=== PATIENT | female | born 1970 | race Caucasian/White ===

== ENCOUNTER 2020-10-18 17:49 | Outpatient (REF) | payer MEDICARE, MEDICAID, SELFPAY | END 2020-10-18 17:50 | disposition home or self-care (01) | LOC: HO.LAB 17:49 | PROVIDERS: PCP Internal Medicine; Visit Provider Internal Medicine | DX: Z20.828 Contact with and (suspected) exposure to other viral communicable diseases (principal) | CPT/HCPCS: C9803; U0003 ==

== ENCOUNTER → 2020-11-23 14:02 | Outpatient (BNVA) | payer MEDICARE, MEDICAID, SELFPAY | PROVIDERS: PCP Internal Medicine; Visit Provider Obstetrics & Gynecology | DX: Z78.0 Asymptomatic menopausal state (principal); Z87.42 Personal history of other diseases of the female genital tract | CPT/HCPCS: 99202 ==

== ENCOUNTER 2020-12-01 17:14 | Outpatient (REF) | payer MEDICARE, MEDICAID, SELFPAY ==
[2020-12-02 14:58] LABS: Influenza A PCR NEGATIVE (Negative); Influenza B PCR NEGATIVE (Negative); Resp Syncy Virus RNA Qual PCR NEGATIVE (Negative); SARS COV2 PCR INHOUSE NEGATIVE (Negative)
== END 2020-12-01 17:15 | disposition home or self-care (01) ==
LOC: HO.LAB 17:14
PROVIDERS: Visit Provider Nurse Practitioner Family
DX: Z20.822 Contact with and (suspected) exposure to COVID-19 (principal)
CPT/HCPCS: 0241U; 36415

== ENCOUNTER 2020-12-07 10:18 | Outpatient (REF) | payer MEDICARE, MEDICAID, SELFPAY ==
--- NOTE | 2020-12-07 10:24 | US_ITS ---
EXAMINATION: PELVIC ULTRASOUND CLINICAL INFORMATION: Ovarian cyst COMPARISON: Previous CT of the abdomen and pelvis most recent April 2017 TECHNIQUE: Transabdominal and transvaginal pelvic ultrasound was performed. Transvaginal exam was performed for better visualization of the uterus and ovaries. FINDINGS: The uterus is retroverted and measures 5.6 x 2.6 x 3.7 cm in dimension. There are several small hypoechoic solid uterine lesions seen suggestive of small fibroids. These measure approximately 1 cm in the right uterine body, left uterine fundus and 0.5 cm in the fundus slightly to the right of midline. No other focal uterine lesion is seen. Endometrial thickness is normal measuring 3 mm. The ovaries are not seen. There is a large amount of bowel gas seen in the pelvis. No adnexal abnormality is evident. There is no fluid in the pelvis. US/US transvaginal IMPRESSION: Retroverted uterus with 4 small fibroids. The ovaries are not visualized.
--- NOTE | 2020-12-07 10:24 | US_ITS ---
EXAMINATION: PELVIC ULTRASOUND CLINICAL INFORMATION: Ovarian cyst COMPARISON: Previous CT of the abdomen and pelvis most recent April 2017 TECHNIQUE: Transabdominal and transvaginal pelvic ultrasound was performed. Transvaginal exam was performed for better visualization of the uterus and ovaries. FINDINGS: The uterus is retroverted and measures 5.6 x 2.6 x 3.7 cm in dimension. There are several small hypoechoic solid uterine lesions seen suggestive of small fibroids. These measure approximately 1 cm in the right uterine body, left uterine fundus and 0.5 cm in the fundus slightly to the right of midline. No other focal uterine lesion is seen. Endometrial thickness is normal measuring 3 mm. The ovaries are not seen. There is a large amount of bowel gas seen in the pelvis. No adnexal abnormality is evident. There is no fluid in the pelvis. US/US pelvic complete IMPRESSION: Retroverted uterus with 4 small fibroids. The ovaries are not visualized.
== END 2020-12-07 10:19 | disposition home or self-care (01) ==
LOC: HO.US 10:18
PROVIDERS: PCP Internal Medicine; Visit Provider Obstetrics & Gynecology
DX: Z87.42 Personal history of other diseases of the female genital tract (principal)
CPT/HCPCS: 76830; 76856

== ENCOUNTER 2020-12-09 09:18 | Outpatient (REF) | payer MEDICARE, MEDICAID, SELFPAY ==
[2020-12-09 10:19] LABS: MANUAL DIFF FLAG NO
[2020-12-09 10:34] LABS: Basophils Absolute Auto 0.1 X10*3/uL (0.0-0.2); Basophils Percent Auto 0.7 % (0-2); Eosinophils Absolute Auto 0.3 X10*3/uL (0.0-0.4); Eosinophils Percent Auto 2.3 % (0-4); Hematocrit 43.7 % (37-47); Hemoglobin 14.3 g/dl (12.0-16.0); Imm Gran Pct Auto 0.9 % (0.0-0.4); Lymphocytes Absolute Auto 3.5 X10*3/uL (1.2-4.9); Lymphocytes Percent Auto 31.4 % (20-40); Mean Corpuscular HGB Conc 32.7 g/dl (31.0-35.0); Mean Corpuscular Hemoglobin 30.4 pg (27.0-33.0); Mean Platelet Volume 9.7 fL (9.4-12.3); Neutrophils Absolute Auto 6.3 X10*3/uL (2.0-8.3); Neutrophils Percent Auto 55.7 % (45-73); Platelet Count 351 X10*3/uL (160-400); Red Cell Distribution Width 13.6 % (11.0-16.0); White Blood Count 11.3 X10*3/uL (4.8-10.8)
[2020-12-09 10:35] LABS: Glucose Urine UA NEG (NEG); Leukocyte Esterase Urine NEG (NEG); Nitrite Urine NEG (NEG); PH 7.5 (5.0-8.0); Urine Blood NEG (NEG); Urine Ketones NEG (NEG); Urine Protein NEG (NEG-TRACE)
[2020-12-09 10:40] LABS: Appearance Urine CLEAR; Color Urine YELLOW
[2020-12-09 10:49] LABS: RBC Urine 0-2 /HPF (0); WBC Urine 0 /HPF (0-4)
[2020-12-09 10:50] LABS: Squamous Epithelial Cell Urine TRACE /LPF
[2020-12-09 10:53] LABS: Alanine Aminotransferase 11 U/L (0-31); Albumin Level 4.2 g/dL (3.5-5.0); Alkaline Phosphatase 73 U/L (39-117); Anion Gap 11 (12-20); Aspartate Amino Transferase 16 U/L (5-31); Bilirubin Total 0.4 mg/dL (0.0-1.0); Blood Urea Nitrogen 12 mg/dL (9-16); Calcium 9.2 mg/dL (8.4-10.2); Carbon Dioxide 28 mmol/L (22-29); Chloride 103 mmol/L (96-108); Cholesterol 219 mg/dL; Estimated Glomerular Filt Rate > 60; Glucose Random 93 mg/dL (60-115); HDL Cholesterol 44 mg/dL; LDL Cholesterol Calculated 141 mg/dl; Potassium 4.7 mmol/l (3.3-5.1); Sodium 137 mmol/L (135-145); Total Protein 6.5 g/dL (6.5-8.0); Triglycerides 170 mg/dL
[2020-12-09 11:17] LABS: Free T4 (Free Thyroxine) 1.03 ng/dL (0.71-1.85); Thyroid Stimulating Hormone 1.36 uIU/mL (0.32-4.0); Vitamin D 25-OH Total 54.8 ng/mL (>30)
[2020-12-09 11:27] LABS: Folate 5.8 ng/mL (> or = 4.0); Vitamin B12 637 pg/mL (200-900)
== END 2020-12-09 09:19 | disposition home or self-care (01) ==
LOC: HO.LAB 09:18
PROVIDERS: Visit Provider Internal Medicine
DX: E78.00 Pure hypercholesterolemia, unspecified (principal); E55.9 Vitamin D deficiency, unspecified; M79.7 Fibromyalgia
CPT/HCPCS: 36415; 80053; 80061; 81001; 82306; 82607; 82746; 84439; 84443; 85025

== ENCOUNTER 2021-01-27 09:04 | Outpatient (REF) | payer MEDICARE, MEDICAID, SELFPAY ==
[2021-01-28 11:42] LABS: C. trachomatis RNA TMA NOT DETECTED (NOT DETECTED); N. gonorrhoeae RNA TMA NOT DETECTED (NOT DETECTED)
[2021-01-28 13:25] LABS: BV Int Neg Control Negative (Negative); BV Int Pos Control Positive (Positive)
[2021-01-31 16:42] LABS: HPV mRNA E6/E7 rflx Not Detected (Not Detected)
== END 2021-01-27 09:05 | disposition home or self-care (01) ==
LOC: HO.LAB 09:04
PROVIDERS: Visit Provider Obstetrics & Gynecology
DX: Z01.419 Encounter for gynecological examination (general) (routine) without abnormal findings (principal); E78.00 Pure hypercholesterolemia, unspecified; Z20.2 Contact with and (suspected) exposure to infections with a predominantly sexual mode of transmission; F17.210 Nicotine dependence, cigarettes, uncomplicated; Z88.6 Allergy status to analgesic agent; Z88.0 Allergy status to penicillin; Z88.8 Allergy status to other drugs, medicaments and biological substances; E55.9 Vitamin D deficiency, unspecified
CPT/HCPCS: 36415; 87480; 87491; 87510; 87591; 87624; 87660; 88142

== ENCOUNTER 2021-01-28 09:27 | Outpatient (REF) | payer MEDICARE, MEDICAID, SELFPAY ==
--- NOTE | ~2021-01-28 | MM_ITS ---
EXAMINATION: MM SCREENING DIGITAL BREAST TOMOSYNTHESIS, BILATERAL CLINICAL INFORMATION: Screening. Asymptomatic. The lifetime risk of breast cancer based on the Tyrer-Cuzick Model is 22%. COMPARISON: Mammography: 11/19/2012, 02/20/2013 TECHNIQUE: Digital breast tomosynthesis is performed in both the craniocaudal and mediolateral oblique views along with computer-aided detection (CAD). Synthesized 2D images are generated from the tomosynthesis. Additional exaggerated right CC view is provided. FINDINGS: There are scattered areas of fibroglandular density (ACR BI-RADS breast composition Category b). There are no significant masses, abnormal calcifications, or other abnormalities. The skin contours are smooth. MM/MM tomosynthesis screening BI IMPRESSION: Unremarkable breast parenchymal pattern. ASSESSMENT: BI-RADS 1: Negative RECOMMENDATION: 1. Routine annual mammography screening. 2. The lifetime risk of breast cancer based on the Tyrer-Cuzick Model is 22%. Additional annual adjunct screening with breast MRI may be of benefit in women with a risk score of 20% or greater. This patient's information was entered into a reminder system with a target due date for their next mammogram.
== END 2021-01-28 09:28 | disposition home or self-care (01) ==
LOC: HO.MAMMO 09:27
PROVIDERS: PCP Internal Medicine; Visit Provider Obstetrics & Gynecology
DX: Z12.31 Encounter for screening mammogram for malignant neoplasm of breast (principal)
CPT/HCPCS: 77063; 77067

== ENCOUNTER 2021-03-09 10:28 | Outpatient (REF) | payer MEDICARE, MEDICAID, SELFPAY ==
[2021-03-09 11:21] LABS: MANUAL DIFF FLAG NO
[2021-03-09 11:37] LABS: Basophils Absolute Auto 0.1 X10*3/uL (0.0-0.2); Basophils Percent Auto 0.6 % (0-2); Eosinophils Absolute Auto 0.2 X10*3/uL (0.0-0.4); Eosinophils Percent Auto 1.5 % (0-4); Hematocrit 47.6 % (37-47); Hemoglobin 15.4 g/dl (12.0-16.0); Imm Gran Abs Auto 0.07 X10*3/uL (0.00-0.03); Imm Gran Pct Auto 0.6 % (0.0-0.4); Lymphocytes Absolute Auto 2.3 X10*3/uL (1.2-4.9); Lymphocytes Percent Auto 18.2 % (20-40); Mean Corpuscular HGB Conc 32.4 g/dl (31.0-35.0); Mean Corpuscular Hemoglobin 30.3 pg (27.0-33.0); Mean Corpuscular Volume 93.7 fL (80-98); Mean Platelet Volume 9.9 fL (9.4-12.3); Monocytes Absolute Auto 1.3 X10*3/uL (0.1-1.2); Monocytes Percent Auto 10.7 % (2-11); Neutrophils Absolute Auto 8.5 X10*3/uL (2.0-8.3); Neutrophils Percent Auto 68.4 % (45-73); Platelet Count 332 X10*3/uL (160-400); Red Blood Count 5.08 X10*6/uL (4.20-5.50); Red Cell Distribution Width 13.2 % (11.0-16.0); White Blood Count 12.4 X10*3/uL (4.8-10.8)
[2021-03-09 11:58] LABS: Alanine Aminotransferase 9 U/L (0-31); Albumin Level 4.5 g/dL (3.5-5.0); Alkaline Phosphatase 88 U/L (39-117); Anion Gap 12 (12-20); Aspartate Amino Transferase 14 U/L (5-31); Bilirubin Total 0.2 mg/dL (0.0-1.0); Blood Urea Nitrogen 10 mg/dL (9-16); Carbon Dioxide 30 mmol/L (22-29); Chloride 105 mmol/L (96-108); Estimated Glomerular Filt Rate > 60; Glucose Random 78 mg/dL (60-115); Magnesium 2.3 mg/dL (1.6-2.6); Phosphorus 3.7 mg/dL (2.7-4.5); Potassium 4.8 mmol/L (3.3-5.1); Sodium 142 mmol/L (135-145); Total Protein 7.2 g/dL (6.5-8.0)
[2021-03-09 12:08] LABS: Thyroid Stimulating Hormone 0.72 uIU/mL (0.32-4.0); Vitamin D 25-OH Total 59.7 ng/mL (>30)
[2021-03-09 12:33] LABS: Folate 7.9 ng/mL (> or = 4.0); Vitamin B12 725 pg/mL (200-900)
[2021-03-09 13:09] LABS: Erythrocyte Sedimentation Rate 6 MM/HR (0-20)
== END 2021-03-09 10:29 | disposition home or self-care (01) ==
LOC: HO.LAB 10:28
PROVIDERS: PCP Internal Medicine; Visit Provider Internal Medicine
DX: R25.1 Tremor, unspecified (principal)
CPT/HCPCS: 36415; 80053; 82306; 82607; 82746; 83735; 84100; 84443; 85025; 85652

== ENCOUNTER 2021-05-24 09:22 | Outpatient (REF) | payer MEDICARE, MEDICAID, SELFPAY ==
[2021-05-25 08:52] LABS: BV Int Neg Control Negative (Negative); BV Int Pos Control Positive (Positive)
== END 2021-05-24 09:23 | disposition home or self-care (01) ==
LOC: HO.LAB 09:22
PROVIDERS: Visit Provider Nurse Practitioner Family
DX: B37.3 Candidiasis of vulva and vagina (principal)
CPT/HCPCS: 87480; 87510; 87660

== ENCOUNTER 2021-06-19 09:26 | Outpatient (REF) | payer MEDICARE, MEDICAID, SELFPAY ==
[2021-06-19 11:19] LABS: HBc Num1 0.44 S/CO (0.00-0.79); HBsAGNum1 0.17 S/CO (0.00-0.99); Hepatitis B Core Antibody Nonreactive (Nonreactive); Hepatitis B Surface Antigen Negative (Negative)
[2021-06-19 11:27] LABS: HBS Num1 36.54 mIU/mL (0-7.99); ~Hepatitis B Surface Antibody REACTIVE (Nonreactive)
[2021-06-20 08:51] LABS: Rubeola IgG (Measles) <13.50 AU/mL
[2021-06-21 20:10] LABS: TS Negative Control Passed; TS Panel A 0; TS Panel B 1; TS Positive Control Passed; TSpotTB Negative (SeeBelow)
== END 2021-06-19 09:27 | disposition home or self-care (01) ==
LOC: HO.LAB 09:26
PROVIDERS: PCP Internal Medicine; Visit Provider Internal Medicine
DX: Z01.84 Encounter for antibody response examination (principal); Z11.1 Encounter for screening for respiratory tuberculosis
CPT/HCPCS: 36415; 86481; 86704; 86706; 86735; 86762; 86765; 86787; 87340

== ENCOUNTER 2021-06-27 14:02 | Outpatient (REF) | payer MEDICARE, MEDICAID, SELFPAY | END 2021-06-27 14:03 | disposition home or self-care (01) | LOC: HO.LNP 14:02 | PROVIDERS: Visit Provider Hospitalist | DX: Z20.822 Contact with and (suspected) exposure to COVID-19 (principal); J01.90 Acute sinusitis, unspecified | CPT/HCPCS: U0003; U0005 ==

== ENCOUNTER 2021-07-12 10:56 | Outpatient (REF) | payer MEDICARE, MEDICAID, SELFPAY ==
--- NOTE | ~2021-07-12 | XR_ITS ---
EXAMINATION: XR LUMBOSACRAL SPINE CLINICAL INFORMATION: Lower back pain. COMPARISON: Most recent sacrum and coccyx radiographs dated 08/17/2019 and lumbar spine radiographs dated 12/07/2016. TECHNIQUE: Three views of the lumbosacral spine. FINDINGS: Normal vertebral body alignment. The lumbar lordosis is maintained. No acute fracture or subluxation. No loss of vertebral body or intervertebral disc height. Tiny anterior endplate osteophytes at L3-L4 and L4-L5. Atherosclerotic calcifications. Right upper quadrant surgical clips. XR/XR lumbar spine 2-3V IMPRESSION: Minimal degenerative disc disease at L3-L4 and L4-L5, slightly progressed when compared to the prior radiographs.
[2021-07-12 11:31] LABS: Glucose Urine UA NEG (NEG); Leukocyte Esterase Urine NEG (NEG); Nitrite Urine NEG (NEG); Specific Gravity - Urine 1.025 (1.005-1.025); Urine Blood NEG (NEG); Urine Ketones NEG (NEG); Urine Protein NEG (NEG-TRACE)
[2021-07-12 11:41] LABS: Appearance Urine CLEAR; Color Urine YELLOW
[2021-07-12 12:22] LABS: Alanine Aminotransferase 14 U/L (0-31); Albumin Level 4.3 g/dL (3.5-5.0); Alkaline Phosphatase 82 U/L (39-117); Anion Gap 14 (12-20); Aspartate Amino Transferase 17 U/L (5-31); Bilirubin Total 0.3 mg/dL (0.0-1.0); Blood Urea Nitrogen 13 mg/dL (9-16); Calcium 9.8 mg/dL (8.4-10.2); Carbon Dioxide 22 mmol/L (22-29); Chloride 109 mmol/L (96-108); Estimated Glomerular Filt Rate > 60; Glucose Random 118 mg/dL (60-115); Potassium 4.6 mmol/L (3.3-5.1); Sodium 140 mmol/L (135-145); Total Protein 7.2 g/dL (6.5-8.0)
== END 2021-07-12 10:57 | disposition home or self-care (01) ==
LOC: HO.LAB 10:56
PROVIDERS: PCP Internal Medicine; Visit Provider Nurse Practitioner Family
DX: R19.7 Diarrhea, unspecified (principal); M54.5 Low back pain
CPT/HCPCS: 36415; 72100; 80053; 81003

== ENCOUNTER 2021-08-04 11:57 | Outpatient (REF) | payer MEDICARE, MEDICAID, SELFPAY ==
--- NOTE | ~2021-08-04 | XR_ITS ---
EXAMINATION: XR FOOT, LEFT XR ANKLE, LEFT CLINICAL INFORMATION: Pain in left foot COMPARISON: None TECHNIQUE: 3 views of the left foot and 2 views of the left ankle FINDINGS: No acute visible fracture or dislocation. The ankle mortise is symmetric. Small plantar calcaneal heel spur. Joint spaces and alignment are maintained. No large ankle joint effusion. Soft tissues are unremarkable. XR/XR ankle LT 2V IMPRESSION: 1. No acute visible fracture or dislocation. 2. Small plantar heel heel spur.
--- NOTE | ~2021-08-04 | XR_ITS ---
EXAMINATION: XR FOOT, LEFT XR ANKLE, LEFT CLINICAL INFORMATION: Pain in left foot COMPARISON: None TECHNIQUE: 3 views of the left foot and 2 views of the left ankle FINDINGS: No acute visible fracture or dislocation. The ankle mortise is symmetric. Small plantar calcaneal heel spur. Joint spaces and alignment are maintained. No large ankle joint effusion. Soft tissues are unremarkable. XR/XR foot LT 2V IMPRESSION: 1. No acute visible fracture or dislocation. 2. Small plantar heel heel spur.
--- NOTE | ~2021-08-04 | XR_ITS ---
EXAMINATION: XR WRIST, RIGHT CLINICAL INFORMATION: Pain COMPARISON: Previous x-ray of the right hand November 2016 TECHNIQUE: Four views of the right wrist. FINDINGS: The bones and soft tissues are normal. No fracture. Alignment is anatomic with normal joint spaces. No erosions or abnormal soft tissue calcifications. XR/XR wrist RT 2V IMPRESSION: Normal right wrist.
== END 2021-08-04 11:58 | disposition home or self-care (01) ==
LOC: HO.XRAY 11:57
PROVIDERS: PCP Internal Medicine; Visit Provider Nurse Practitioner Family
DX: M79.672 Pain in left foot (principal); M25.572 Pain in left ankle and joints of left foot; M25.531 Pain in right wrist
CPT/HCPCS: 73100; 73600; 73620

== ENCOUNTER 2021-08-24 07:29 | Emergency (ER) | payer OTHER, MEDICARE, MEDICAID, SELFPAY ==
--- NOTE | ~2021-08-24 | XR_ITS ---
EXAMINATION: XR FOOT, LEFT CLINICAL INFORMATION: Left foot pain. COMPARISON: None TECHNIQUE: AP, lateral, and oblique views of the left foot. FINDINGS: The ankle mortise and subtalar joints are normal. The intertarsal, tarsometatarsal and interphalangeal joints are normal. No visible fracture or dislocation seen. No bony erosive changes. There is a small calcaneal heel spur. XR/XR foot LT min 3V IMPRESSION: Small calcaneal heel enthesophyte. No visible acute fracture or dislocation seen.
[2021-08-24 07:37] VITALS: BP 144/95; PULSE 87; RESP 18; TEMP 528.3; TEMP 983; O2SAT 96; BMI 25.5
--- NOTE | 2021-08-24 07:50 | ED_ITS ---
HPI - General Adult General Chief complaint: General Medical Stated complaint: L FOOT BURNING ON TOP CRAMPING PAIN Time Seen by Provider: 08/24/21 07:50 History of Present Illness MD complaint: burning left foot Onset (ago): month(s) (2) Location: left and lower extremity (top of foot) Radiation: non-radiation Severity: moderate Quality: burning and constant Pain Consistency: constant Relieving factors: none Exacerbating factors: movement Associated symptoms: denies other symptoms Treatments prior to arrival: none Related Data Home Medications Medication Instructions Recorded Confirmed eszopiclone 3 mg tablet (Lunesta) 3 mg PO BEDTIME 09/28/20 08/04/21 ascorbate calcium (vitamin C) 500 1 g PO Q6H 10/21/20 08/04/21 mg tablet cholecalciferol (vitamin D3) 25 25 mcg PO DAILY 10/21/20 08/04/21 mcg (1,000 unit) capsule clonazepam 1 mg tablet mg PO DAILY PRN tab 10/21/20 08/04/21 zinc 50 mg tablet 50 mg PO DAILY 10/21/20 08/04/21 soy isoflavone-black cohosh cap PO 04/20/21 08/04/21 root-magnolia bark 155 mg capsule (Estroven) ferrous sulfate 325 mg (65 mg 325 mg PO DAILY 07/25/21 08/04/21 iron) tablet (Feosol) Previous Rx's Medication Instructions Recorded metoclopramide HCl 10 mg tablet 10 mg PO TID PRN #90 tab 09/30/20 calcium carbonate 500 mg calcium 1,000 mg PO DAILY #60 cap 11/23/20 (1,250 mg) capsule albuterol sulfate 90 mcg/actuation 2 puff INHALATION Q4-6H PRN #6.7 g 12/01/20 aerosol inhaler cholestyramine-aspartame 4 gram 4 g PO BID #60 ea 04/20/21 oral powder for susp in a packet (Prevalite) dexlansoprazole 30 mg 30 mg PO DAILY #90 cap 06/01/21 capsule,biphase delayed release (Dexilant) loratadine 10 mg tablet (Claritin) 10 mg PO DAILY #90 tab 06/01/21 meclizine 25 mg tablet 25 mg PO DAILY #90 tab 06/06/21 clindamycin 1 %-benzoyl peroxide 5 1 appl TOPICAL BID 7 Days #25 g 07/27/21 % topical gel baclofen 10 mg tablet 10 mg PO BEDTIME PRN 7 Days #7 tab 08/04/21 azithromycin 250 mg tablet See Rx Instructions PO .COMPLEX #6 08/12/21 (Zithromax) tab diclofenac sodium 1 % topical gel 2 g TOPICAL TID #100 g 08/24/21 (Voltaren Arthritis Pain) Allergies Allergy/AdvReac Type Severity Reaction Status Date / Time Clindamycin HCl Allergy Unknown esophagus, Verified 08/24/21 07:36 trouble swallowing gabapentin Allergy Unknown Unknown Verified 08/24/21 07:36 ibuprofen Allergy Unknown nausea Verified 08/24/21 07:36 metoclopramide [Reglan] Allergy Unknown jittery Verified 08/24/21 07:36 NSAIDS (Non-Steroidal Allergy Unknown STOMACH Verified 08/24/21 07:36 Anti-Inflamma UPSET [NSAIDS (NON-STEROIDAL ANTI-INFLAMMA] oxycodone [OXYCODONE] Allergy Unknown palpitations, Verified 08/24/21 07:36 hyper penicillin V Allergy Unknown rash ?, Verified 08/24/21 07:36 hives Penicillins Allergy Unknown HIVES Verified 08/24/21 07:36 pseudoephedrine [Sudafed] Allergy Unknown Unknown Verified 08/24/21 07:36 tramadol [TRAMADOL] Allergy Unknown palpitations, Verified 08/24/21 07:36 hyper vilazodone [Viibryd] Allergy Unknown dry mouth Verified 08/24/21 07:36 and tremors zolpidem [Ambien] Allergy Unknown Unknown Verified 08/24/21 07:36 bupropion [BUPROPION] AdvReac Intermediate HTN, Verified 08/24/21 07:36 BLURRY VISION levofloxacin AdvReac Unknown weakness, Verified 08/24/21 07:36 nausea/vomiting Review of Systems Review of Systems: Constitutional : No Fever, No Chills ENT/Mouth : No Ear Pain, No Hoarseness, No sore throat Eyes: No Eye Pain, No Swelling, No Redness, No Foreign Body Cardiovascular : No Chest Pain, No SOB Respiratory : No Cough, No Dyspnea Gastrointestinal : No Nausea, No Vomiting, No Diarrhea, No abdominal Pain Genitourinary : No Dysuria, No Hematuria Musculoskeletal : positive joint pain, No Myalgias, No Joint Swelling Skin : No Skin lacerations, No rash Neuro : No Weakness, No Numbness, No Loss of Consciousness, No Dizziness, No Headache, pos burning pain Psych : No Anxiety/Panic, No Depression All other systems reviewed and are negative [facility] Past Medical History Attestation statement: The following information was validated with the patient. Medical History Allergic rhinitis Anxiety and depression Bile salt-induced diarrhea Closed left clavicular fracture Diarrhea Fibromyalgia Gallbladder polyp GERD (gastroesophageal reflux disease) History of miscarriage Hypercholesterolemia Insomnia Low back pain Migraine Nausea Temporal lobe epilepsy Vitamin D deficiency Surgical History History of cholecystectomy Family History Family History Father Cancer Mother CVD (cerebrovascular disease) Sister Breast cancer Family/Other Brain cancer Paternal Uncle Colon cancer Paternal Grandmother Stomach cancer Other Mental health disorder Social History Social History Housing: Apartment Alcohol intake: never Patient Tobacco Use Status: Current everyday Tobacco user Years Smoked: 1 pack per week Advance Directives: No Advance Directives Information Provided: No service: No Current occupational status: unemployed Gender identity: Female Physical Exam Vital Signs: Vital Signs: Last Vital Signs Temp 98.1 F 08/24/21 07:53 Pulse 80 08/24/21 07:53 Resp 16 08/24/21 07:53 BP 127/64 08/24/21 07:53 Pulse Ox 96 08/24/21 07:53 Body Mass Index 25.5 Appearance: Alert. Oriented X3. No acute distress. Eyes: Pupils equal, round and reactive to light. ENT: Pharynx normal. Neck: Normal inspection. Neck supple. CVS: Normal heart rate and rhythm. Pulses normal. Respiratory: No respiratory distress. Breath sounds normal. Abdomen: Soft and nontender. Skin: Skin warm and dry. Normal skin color. Normal skin turgor. Extremities: No lower extremity edema. L foot NV intact, at this time reports burning pain to top of foot Neuro: Oriented X 3. No motor deficit. No sensory deficit. Course Course Course Narrative: work up negative Medical Decision Making [facility] Narrative Medical decision making narrative: 51 yo female with hx of multiple allergies comes in with c/o 2 months of burning to L foot that is atraumatic in nature - NV intact, will obtain labs and xray for fracture. Dispo per results and findings. Lab Data Result diagrams: 08/24/21 08:28 Labs: Lab Results 08/24/21 Range/Units 08:28 Sodium 139 (135-145) mmol/L Potassium 4.7 (3.3-5.1) mmol/L Chloride 107 (96-108) mmol/L Carbon Dioxide 25 (22-29) mmol/L Anion Gap 12 (12-20) BUN 13 (9-16) mg/dL Creatinine 0.75 (0.5-1.4) mg/dL Estim Creat Clear Calc 85.7 Estimated GFR > 60 Random Glucose 81 (60-115) mg/dL Calcium 10.0 (8.4-10.2) mg/dL Magnesium 2.3 (1.6-2.6) mg/dL Discharge Plan Discharge Clinical Impression: Neuropathic pain Patient Disposition: Home, Self-Care Instructions: Paresthesia (ED) Additional Instructions: return to ED for any worsening symptoms or concerns Prescriptions: New diclofenac sodium [Voltaren Arthritis Pain] 1 % gel 2 g topical TID Qty: 100 RF: 0 No Action metoclopramide HCl 10 mg tablet 10 mg PO TID PRN (Reason: nausea and vomiting) Qty: 90 RF: 2 Dexilant 30 mg capsule,biphase delayed releas 30 mg PO DAILY Qty: 90 RF: 1 loratadine [Claritin] 10 mg tablet 10 mg PO DAILY Qty: 90 RF: 3 meclizine 25 mg tablet 25 mg PO DAILY Qty: 90 RF: 1 clindamycin-benzoyl peroxide 1-5 % gel 1 appl topical BID 7 Days Qty: 25 RF: 0 azithromycin [Zithromax] 250 mg tablet See Rx Instructions PO .COMPLEX Qty: 6 RF: 0 eszopiclone [Lunesta] 3 mg tablet 3 mg PO BEDTIME RF: 0 clonazepam 1 mg tablet PO DAILY PRNRF: 0 albuterol sulfate 90 mcg/actuation HFA aerosol inhaler 2 puff inhalation Q4-6H PRN (Reason: shortness of breath or wheezing) Qty: 6.7 RF: 0 baclofen 10 mg tablet 10 mg PO BEDTIME PRN (Reason: muscle spasm) 7 Days Qty: 7 RF: 0 cholecalciferol (vitamin D3) 25 mcg (1,000 unit) capsule 25 mcg PO DAILY RF: 0 ascorbate calcium (vitamin C) 500 mg tablet 1 g PO Q6H RF: 0 zinc 50 mg tablet 50 mg PO DAILY RF: 0 Prevalite 4 gram powder in packet 4 g PO BID Qty: 60 RF: 2 Estroven 155 mg capsule PO RF: 0 ferrous sulfate [Feosol] 325 mg (65 mg iron) tablet 325 mg PO DAILY RF: 0 calcium carbonate 500 mg calcium (1,250 mg) capsule 1,000 mg PO DAILY Qty: 60 RF: 11 Referrals: Po,April Coleman MD [Primary Care Provider] - 1 week (if not better)
[2021-08-24 07:53] VITALS: BP 127/64; PULSE 80; RESP 16; TEMP 36.7; O2SAT 96
[2021-08-24 08:53] LABS: Anion Gap 12 (12-20); Blood Urea Nitrogen 13 mg/dL (9-16); Carbon Dioxide 25 mmol/L (22-29); Chloride 107 mmol/L (96-108); Creatinine Clr Calc Pharmacy 85.7; Estimated Glomerular Filt Rate > 60; Glucose Random 81 mg/dL (60-115); Magnesium 2.3 mg/dL (1.6-2.6); Potassium 4.7 mmol/L (3.3-5.1); Sodium 139 mmol/L (135-145)
== END 2021-08-24 09:11 | disposition home or self-care (01) ==
PROVIDERS: Emergency Provider Emergency Medicine; PCP Internal Medicine
DX: M79.2 Neuralgia and neuritis, unspecified (principal); M79.672 Pain in left foot
CPT/HCPCS: 36415; 73630; 80048; 83735; 99283; 99284

== ENCOUNTER 2021-10-28 07:33 | Outpatient (REF) | payer MEDICARE, MEDICAID, SELFPAY ==
[2021-10-28 07:45] LABS: MANUAL DIFF FLAG NO
[2021-10-28 08:03] LABS: Basophils Absolute Auto 0.1 X10*3/uL (0.0-0.2); Basophils Percent Auto 0.6 % (0-2); Eosinophils Absolute Auto 0.2 X10*3/uL (0.0-0.4); Eosinophils Percent Auto 2.2 % (0-4); Hematocrit 47.1 % (37.0-47.0); Hemoglobin 15.7 g/dl (12.0-16.0); Imm Gran Abs Auto 0.05 X10*3/uL (0.00-0.03); Imm Gran Pct Auto 0.5 % (0.0-0.4); Immature Retic Fraction 8.7 % (3.0-15.9); Lymphocytes Absolute Auto 3.1 X10*3/uL (1.2-4.9); Lymphocytes Percent Auto 29.2 % (20-40); Mean Corpuscular HGB Conc 33.3 g/dl (31.0-35.0); Mean Corpuscular Hemoglobin 30.8 pg (27.0-33.0); Mean Corpuscular Volume 92.5 fL (80.0-98.0); Mean Platelet Volume 9.8 fL (9.4-12.3); Monocytes Percent Auto 9.3 % (2-11); Neutrophils Absolute Auto 6.1 x10*3/uL (2.0-8.3); Neutrophils Percent Auto 58.2 % (45-73); Platelet Count 379 X10*3/uL (160-400); Red Blood Count 5.09 X10*6/uL (4.20-5.50); Red Cell Distribution Width 13.1 % (11.0-16.0); Retic HGB Equivalent 35.5 pg (30.0-35.0); Reticulocytes Absolute 0.101 X10*6/uL (0.026-0.095); White Blood Count 10.5 X10*3/uL (4.8-10.8)
[2021-10-28 08:29] LABS: Anion Gap 13 (12-20); Blood Urea Nitrogen 19 mg/dL (9-16); Carbon Dioxide 25 mmol/L (22-29); Chloride 109 mmol/L (96-108); Estimated Glomerular Filt Rate > 60; Glucose Fasting 97 mg/dL (60-99); Iron 122 mcg/dL (30-160); Percent Iron Saturation 43 % (15-50); Potassium 4.5 mmol/L (3.3-5.1); Sodium 142 mmol/L (135-145); Total Iron Binding Capacity 281 mcg/dL (228-428); Unsaturated Iron Binding 159 ug/dL
[2021-10-28 08:43] LABS: Free T4 (Free Thyroxine) 1.12 ng/dL (0.71-1.85); Thyroid Stimulating Hormone 0.91 uIU/mL (0.32-4.0)
[2021-10-28 09:10] LABS: Appearance Urine HAZY; Color Urine DK YELLOW; Glucose Urine UA NEG (NEG); Leukocyte Esterase Urine NEG (NEG); Nitrite Urine NEG (NEG); UACC Culture Trigger NO; Urine Blood TRACE (NEG); Urine Ketones 5 MG/DL (NEG); Urine Protein TRACE MG/DL (NEG-TRACE)
[2021-10-28 09:10] LABS: Ferritin 34 ng/mL (10-250)
[2021-10-28 09:28] LABS: Mucus Urine 3+ /LPF; Squamous Epithelial Cell Urine 2+ /LPF; WBC Urine 0-2 /HPF (0-4)
[2021-10-30 09:02] LABS: Folate > 20.0 ng/mL (> or = 4.0); Vitamin B12 795 pg/mL (200-900)
== END 2021-10-28 07:34 | disposition home or self-care (01) ==
LOC: HO.LAB 07:33
PROVIDERS: PCP Internal Medicine; Visit Provider Internal Medicine
DX: F33.9 Major depressive disorder, recurrent, unspecified (principal); R73.9 Hyperglycemia, unspecified
CPT/HCPCS: 36415; 80048; 81001; 81003; 82607; 82728; 82746; 83540; 84439; 84443; 85025; 85045

== ENCOUNTER 2021-11-03 15:34 | Emergency (ER) | payer MEDICARE, MEDICAID, SELFPAY ==
[2021-11-03 16:08] VITALS: BP 115/68; PULSE 85; RESP 18; TEMP 36.9; O2SAT 97; BMI 25.7
[2021-11-03 17:33] LABS: MANUAL DIFF FLAG NO
[2021-11-03 17:37] LABS: Basophils Absolute Auto 0.1 X10*3/uL (0.0-0.2); Basophils Percent Auto 0.5 % (0-2); Eosinophils Absolute Auto 0.2 X10*3/uL (0.0-0.4); Eosinophils Percent Auto 1.1 % (0-4); Hematocrit 46.8 % (37.0-47.0); Hemoglobin 15.5 g/dl (12.0-16.0); Imm Gran Abs Auto 0.06 X10*3/uL (0.00-0.03); Imm Gran Pct Auto 0.5 % (0.0-0.4); Lymphocytes Absolute Auto 2.9 X10*3/uL (1.2-4.9); Lymphocytes Percent Auto 21.7 % (20-40); Mean Corpuscular HGB Conc 33.1 g/dl (31.0-35.0); Mean Corpuscular Hemoglobin 30.9 pg (27.0-33.0); Mean Corpuscular Volume 93.2 fL (80.0-98.0); Mean Platelet Volume 9.6 fL (9.4-12.3); Monocytes Absolute Auto 1.1 X10*3/uL (0.1-1.2); Neutrophils Percent Auto 68.2 % (45-73); Platelet Count 340 X10*3/uL (160-400); Red Blood Count 5.02 X10*6/uL (4.20-5.50); Red Cell Distribution Width 13.1 % (11.0-16.0); White Blood Count 13.2 X10*3/uL (4.8-10.8)
[2021-11-03 17:53] LABS: Alanine Aminotransferase 11 U/L (0-31); Albumin Level 4.3 g/dL (3.5-5.0); Alkaline Phosphatase 76 U/L (39-117); Anion Gap 14 (12-20); Aspartate Amino Transferase 14 U/L (5-31); Bilirubin Total 0.2 mg/dL (0.0-1.0); Blood Urea Nitrogen 16 mg/dL (9-16); Calcium 9.9 mg/dL (8.4-10.2); Carbon Dioxide 23 mmol/L (22-29); Chloride 108 mmol/L (96-108); Creatinine Clr Calc Pharmacy 92.1; Estimated Glomerular Filt Rate > 60; Glucose Random 98 mg/dL (60-115); Potassium 4.7 mmol/L (3.3-5.1); Sodium 140 mmol/L (135-145)
[2021-11-03 18:02] LABS: COVID-19 Test Negative (Negative); IDNOW Serial# 9DD0AD1C
== END 2021-11-03 19:14 | disposition left against medical advice (07) ==
PROVIDERS: Emergency Provider Emergency Medicine; PCP Internal Medicine
DX: R51.9 Headache, unspecified (principal); M54.2 Cervicalgia; Z20.822 Contact with and (suspected) exposure to COVID-19
CPT/HCPCS: 36415; 80053; 85025; 87635; 99281; 99283

== ENCOUNTER 2021-11-09 11:07 | Outpatient (REF) | payer MEDICARE, MEDICAID, SELFPAY ==
--- NOTE | ~2021-11-09 | CT_ITS ---
EXAMINATION: CT HEAD WITHOUT CONTRAST CLINICAL INFORMATION: R41.82 - Altered mental status, unspecified. Pressure top of head. COMPARISON: CT head noncontrast 11/30/2019. TECHNIQUE: Contiguous axial imaging was performed from the skull base to vertex without intravenous administration of contrast. Additional 2-D coronal and sagittal reformatted images are generated on the CT workstation and uploaded to PACS. This CT examination was performed using dose optimization techniques as appropriate, variously including the following: *Automated exposure control *Adjustment of mA and/or kV according to patient size (this includes techniques or standardized protocols for targeted exams where dose is matched to indication/reason for exam; i.e. extremities or head) *Use of iterative reconstruction technique DLP: 678 mGy-cm FINDINGS: There is no intracranial hemorrhage, hematoma, or extra-axial fluid collection. The ventricles are normal in size. There is no hydrocephalus, edema, or mass effect. The craig-white matter differentiation appears well preserved . There is some mild beam hardening artifact through the middle cranial fossa. There is no visible acute territorial infarct or mass lesion. The calvarium appears intact. There is no pneumocephalus or orbital emphysema. The visualized sinuses and middle ears and mastoid air cells show no significant mucosal thickening. There are no air-fluid levels. CT/CT head/brain wo con IMPRESSION: No acute intracranial abnormality.
== END 2021-11-09 11:08 | disposition home or self-care (01) ==
LOC: HO.CT 11:07
PROVIDERS: PCP Internal Medicine; Visit Provider Nurse Practitioner Acute Care
DX: R41.82 Altered mental status, unspecified (principal)
CPT/HCPCS: 70450

== ENCOUNTER 2022-01-13 13:33 | Emergency (ER) | payer MEDICARE, MEDICAID, SELFPAY ==
[2022-01-13 14:02] VITALS: BP 129/79; PULSE 78; RESP 16; TEMP 36.7; O2SAT 99; BMI 24.0
--- NOTE | 2022-01-13 16:44 | ED.FEMALEGU ---
HPI - Female Genitourinary General Chief complaint: Vaginal Bleeding Stated complaint: Abd pain-sent from urgent care Related Data Home Medications Medication Instructions Recorded Confirmed eszopiclone 3 mg tablet (Lunesta) 3 mg PO BEDTIME 09/28/20 12/22/21 ascorbate calcium (vitamin C) 500 1 g PO Q6H 10/21/20 12/22/21 mg tablet cholecalciferol (vitamin D3) 25 25 mcg PO DAILY 10/21/20 12/22/21 mcg (1,000 unit) capsule clonazepam 1 mg tablet mg PO DAILY PRN tab 10/21/20 12/22/21 zinc 50 mg tablet 50 mg PO DAILY 10/21/20 12/22/21 soy isoflavone-black cohosh cap PO 04/20/21 12/22/21 root-magnolia bark 155 mg capsule (Estroven) ferrous sulfate 325 mg (65 mg 325 mg PO DAILY 07/25/21 12/22/21 iron) tablet (Feosol) bupropion HCl 150 mg 24 hr tablet, 150 mg PO QAM 09/08/21 12/22/21 extended release lamotrigine 25 mg tablet 25 mg PO Q OTHER DAY 09/08/21 12/22/21 Previous Rx's Medication Instructions Recorded metoclopramide HCl 10 mg tablet 10 mg PO TID PRN #90 tab 09/30/20 calcium carbonate 500 mg calcium 1,000 mg PO DAILY #60 cap 11/23/20 (1,250 mg) capsule cholestyramine-aspartame 4 gram 4 g PO BID #60 ea 04/20/21 oral powder for susp in a packet (Prevalite) meclizine 25 mg tablet 25 mg PO DAILY #90 tab 06/06/21 clindamycin 1 %-benzoyl peroxide 5 1 appl TOPICAL BID 7 Days #25 g 07/27/21 % topical gel baclofen 10 mg tablet 10 mg PO BEDTIME PRN 7 Days #7 tab 08/04/21 diclofenac sodium 1 % topical gel 2 g TOPICAL TID #100 g 08/24/21 (Voltaren Arthritis Pain) vitamin B complex (B 1 tab PO DAILY #20 tab 09/08/21 Complex-Vitamin B12) albuterol sulfate 90 mcg/actuation 2 puff INHALATION Q4-6H PRN #6.7 g 11/13/21 aerosol inhaler dexlansoprazole 30 mg 30 mg PO DAILY #90 cap 12/22/21 capsule,biphase delayed release (Dexilant) loratadine 10 mg tablet (Claritin) 10 mg PO DAILY #90 tab 12/22/21 nicotine (polacrilex) 4 mg gum 4 mg BUCCAL Q2H #110 ea 12/22/21 Allergies Allergy/AdvReac Type Severity Reaction Status Date / Time Clindamycin HCl Allergy Unknown esophagus, Verified 12/22/21 08:43 trouble swallowing gabapentin Allergy Unknown Unknown Verified 12/22/21 08:43 ibuprofen Allergy Unknown nausea Verified 12/22/21 08:43 metoclopramide [Reglan] Allergy Unknown jittery Verified 12/22/21 08:43 NSAIDS (Non-Steroidal Allergy Unknown STOMACH Verified 12/22/21 08:43 Anti-Inflamma UPSET [NSAIDS (NON-STEROIDAL ANTI-INFLAMMA] oxycodone [OXYCODONE] Allergy Unknown palpitations, Verified 12/22/21 08:43 hyper penicillin V Allergy Unknown rash ?, Verified 12/22/21 08:43 hives Penicillins Allergy Unknown HIVES Verified 12/22/21 08:43 pseudoephedrine [Sudafed] Allergy Unknown Unknown Verified 12/22/21 08:43 tramadol [TRAMADOL] Allergy Unknown palpitations, Verified 12/22/21 08:43 hyper vilazodone [Viibryd] Allergy Unknown dry mouth Verified 12/22/21 08:43 and tremors zolpidem [Ambien] Allergy Unknown Unknown Verified 12/22/21 08:43 bupropion [BUPROPION] AdvReac Intermediate HTN, Verified 12/22/21 08:43 BLURRY VISION levofloxacin AdvReac Unknown weakness, Verified 12/22/21 08:43 nausea/vomiting [facility] Past Medical History Attestation statement: The following information was validated with the patient. Source: old records reviewed Medical History Acute sinusitis Allergic rhinitis Anxiety and depression Bile salt-induced diarrhea Closed left clavicular fracture Cough Diarrhea Fibromyalgia Gallbladder polyp GERD (gastroesophageal reflux disease) History of miscarriage Hypercholesterolemia Insomnia Low back pain Migraine Nausea Otitis externa Screening for colon cancer Screening for hyperlipidemia Sinus congestion Temporal lobe epilepsy Vitamin D deficiency Surgical History History of cholecystectomy Family History Family History Father Cancer Mother CVD (cerebrovascular disease) Sister Breast cancer Family/Other Brain cancer Paternal Uncle Colon cancer Paternal Grandmother Stomach cancer Other Mental health disorder Social History Social History Housing: Apartment Alcohol intake: never Patient Tobacco Use Status: Current everyday Tobacco user Years Smoked: 1 pack per week e-Cigarette/Vaping Use: Never Used Second Hand Smoke Exposure: No service: No Current occupational status: unemployed Gender identity: Female Cognitive needs: No Hearing needs: No Vision needs: No Physical Exam Vital Signs: Vital Signs: Last Vital Signs Temp 98.1 F 01/13/22 14:02 Pulse 78 01/13/22 14:02 Resp 16 01/13/22 14:02 BP 129/79 01/13/22 14:02 Pulse Ox 99 01/13/22 14:02 BMI result Body Mass Index 24.0 Discharge Plan Discharge Prescriptions: No Action metoclopramide HCl 10 mg tablet 10 mg PO TID PRN (Reason: nausea and vomiting) Qty: 90 2RF meclizine 25 mg tablet 25 mg PO DAILY Qty: 90 1RF clindamycin-benzoyl peroxide 1-5 % gel 1 appl topical BID 7 Days Qty: 25 0RF albuterol sulfate 90 mcg/actuation HFA aerosol inhaler 2 puff inhalation Q4-6H PRN (Reason: shortness of breath or wheezing) Qty: 6.7 0RF diclofenac sodium [Voltaren Arthritis Pain] 1 % gel 2 g topical TID Qty: 100 0RF Rx Instructions: apply to single elbow, wrist or hand; for hand includes palm/fingers/back of hand eszopiclone [Lunesta] 3 mg tablet 3 mg PO BEDTIME 0RF clonazepam 1 mg tablet PO DAILY PRN0RF baclofen 10 mg tablet 10 mg PO BEDTIME PRN (Reason: muscle spasm) 7 Days Qty: 7 0RF cholecalciferol (vitamin D3) 25 mcg (1,000 unit) capsule 25 mcg PO DAILY 0RF ascorbate calcium (vitamin C) 500 mg tablet 1 g PO Q6H 0RF zinc 50 mg tablet 50 mg PO DAILY 0RF Prevalite 4 gram powder in packet 4 g PO BID Qty: 60 2RF Rx Instructions: administer w/meal; avoid other meds within 1hr before or 4-6hr after dose Estroven 155 mg capsule PO 0RF ferrous sulfate [Feosol] 325 mg (65 mg iron) tablet 325 mg PO DAILY 0RF bupropion HCl 150 mg tablet extended release 24 hr 150 mg PO QAM 0RF lamotrigine 25 mg tablet 25 mg PO Q OTHER DAY 0RF vitamin B complex [B Complex-Vitamin B12] Tablet 1 tab PO DAILY Qty: 20 0RF nicotine (polacrilex) 4 mg gum 4 mg buccal Q2H Qty: 110 1RF Dexilant 30 mg capsule,biphase delayed releas 30 mg PO DAILY Qty: 90 3RF loratadine [Claritin] 10 mg tablet 10 mg PO DAILY Qty: 90 3RF calcium carbonate 500 mg calcium (1,250 mg) capsule 1,000 mg PO DAILY Qty: 60 11RF
== END 2022-01-13 16:56 | disposition left against medical advice (07) ==
PROVIDERS: Emergency Provider Emergency Medicine Emergency Medical Services; PCP Internal Medicine
DX: R10.9 Unspecified abdominal pain (principal); N93.9 Abnormal uterine and vaginal bleeding, unspecified; B37.3 Candidiasis of vulva and vagina; Z20.2 Contact with and (suspected) exposure to infections with a predominantly sexual mode of transmission
CPT/HCPCS: 99281; 99282

== ENCOUNTER → 2022-02-02 11:20 | Outpatient (REF) | payer MEDICARE, MEDICAID, SELFPAY ==
--- NOTE | 2022-02-02 11:34 | HM_ITS ---
* Total monitoring time 2 days and 23 hours. * Underlying rhythm is sinus. Average rate 73/Min; range 46 to 140/Min. About 7% the time, rate greater than 100/Min. * No atrial fibrillation or flutter or AV blocks or pauses. * Very rare supraventricular and ventricular ectopy with minimal burden. * No patient events. MTDD
== END ==
LOC: HO.CARD 11:20
PROVIDERS: PCP Internal Medicine; Visit Provider Internal Medicine
DX: R00.2 Palpitations (principal)
CPT/HCPCS: 93242

== ENCOUNTER 2022-02-21 10:11 | Outpatient (REF) | payer MEDICARE, MEDICAID, SELFPAY ==
--- NOTE | ~2022-02-21 | US_ITS ---
EXAMINATION: US PELVIS COMPLETE US PELVIS ENDOVAGINAL CLINICAL INFORMATION: Post menopausal bleeding COMPARISON: Ultrasound pelvis from 12/07/2020 TECHNIQUE: Transabdominal and transvaginal images of the pelvis were obtained. Technical limitation secondary to overlying bowel gas. FINDINGS: UTERUS: Retroverted and retroflexed. Normal size and contour, measuring 5.7 x 3.4 x 4.2 cm (cervix to fundus x AP x transverse). Multiple uterine fibroids are identified the largest in the left fundus measuring up to 1.0 cm and right body measuring 1.1 cm. Uniform, homogeneous endometrium measures 2.5 cm in width. RIGHT OVARY: Not well visualized. No right adnexal masses or collections identified. LEFT OVARY: Not well visualized. No left adnexal masses or collections identified. FREE FLUID: No pelvic free fluid. US/US pelvic and transvaginal IMPRESSION: 1. Bilateral ovaries not well visualized. No adnexal masses or collections noted. 2. Redemonstration of multiple small uterine fibroids the largest measuring up to 1.1 cm.
== END 2022-02-21 10:12 | disposition home or self-care (01) ==
LOC: HO.US 10:11
PROVIDERS: PCP Internal Medicine; Visit Provider Internal Medicine
DX: N95.0 Postmenopausal bleeding (principal)
CPT/HCPCS: 76830; 76856

== ENCOUNTER 2022-06-29 15:05 | Outpatient (REF) | payer MEDICARE, MEDICAID, SELFPAY ==
--- NOTE | ~2022-06-29 | XR_ITS ---
EXAMINATION: XR CHEST CLINICAL INFORMATION: Acute bronchitis COMPARISON: Previous chest x-ray most recent June 2019 TECHNIQUE: 2 views of the chest were obtained. FINDINGS: No significant abnormality is noted involving the heart, lungs, mediastinum, bony thorax or soft tissues. XR/XR chest 2V IMPRESSION: Unremarkable examination.
[2022-06-29 15:24] LABS: MANUAL DIFF FLAG NO
[2022-06-29 15:43] LABS: Basophils Absolute Auto 0.1 X10*3/uL (0.0-0.2); Basophils Percent Auto 0.9 % (0-2); Eosinophils Absolute Auto 0.2 X10*3/uL (0.0-0.4); Eosinophils Percent Auto 2.2 % (0-4); Hematocrit 40.1 % (37.0-47.0); Hemoglobin 13.3 g/dl (12.0-16.0); Imm Gran Abs Auto 0.08 X10*3/uL (0.00-0.03); Imm Gran Pct Auto 0.8 % (0.0-0.4); Lymphocytes Absolute Auto 2.9 X10*3/uL (1.2-4.9); Mean Corpuscular HGB Conc 33.2 g/dl (31.0-35.0); Mean Corpuscular Hemoglobin 30.2 pg (27.0-33.0); Mean Corpuscular Volume 90.9 fL (80.0-98.0); Mean Platelet Volume 9.3 fL (9.4-12.3); Monocytes Absolute Auto 1.1 X10*3/uL (0.1-1.2); Monocytes Percent Auto 10.3 % (2-11); Neutrophils Absolute Auto 6.1 x10*3/uL (2.0-8.3); Neutrophils Percent Auto 57.8 % (45-73); Platelet Count 327 X10*3/uL (160-400); Red Blood Count 4.41 X10*6/uL (4.20-5.50); Red Cell Distribution Width 12.8 % (11.0-16.0); White Blood Count 10.5 X10*3/uL (4.8-10.8)
[2022-06-29 16:01] LABS: Alanine Aminotransferase 19 U/L (0-31); Albumin Level 4.4 g/dL (3.5-5.0); Alkaline Phosphatase 78 U/L (39-117); Anion Gap 14 (12-20); Aspartate Amino Transferase 23 U/L (5-31); Bilirubin Total 0.2 mg/dL (0.0-1.0); Blood Urea Nitrogen 18 mg/dL (9-16); Calcium 9.5 mg/dL (8.4-10.2); Carbon Dioxide 25 mmol/L (22-29); Chloride 106 mmol/L (96-108); Cholesterol 229 mg/dL; Estimated Glomerular Filt Rate > 60; Glucose Random 90 mg/dL (60-115); HDL Cholesterol 58 mg/dL; LDL Cholesterol Calculated 147 mg/dl; Potassium 4.5 mmol/L (3.3-5.1); Sodium 140 mmol/L (135-145); Total Protein 6.9 g/dL (6.5-8.0); Triglycerides 124 mg/dL
[2022-06-29 16:08] LABS: Appearance Urine CLEAR; Color Urine YELLOW; Glucose Urine UA NEG (NEG); Leukocyte Esterase Urine NEG (NEG); Nitrite Urine NEG (NEG); Specific Gravity - Urine <= 1.005 (1.005-1.025); Urine Blood TRACE (NEG); Urine Ketones NEG (NEG); Urine Protein NEG (NEG-TRACE)
[2022-06-29 16:21] LABS: Free T4 (Free Thyroxine) 0.92 ng/dL (0.71-1.85); Thyroid Stimulating Hormone 0.87 uIU/mL (0.32-4.0); Vitamin D 25-OH Total 73.5 ng/mL (>30)
[2022-06-29 16:24] LABS: WBC Urine 0 /HPF (0-4)
[2022-06-29 16:33] LABS: Erythrocyte Sedimentation Rate 7 MM/HR (0-20); Folate 18.8 ng/mL (> or = 4.0); Vitamin B12 840 pg/mL (200-900)
[2022-07-03 08:42] LABS: Anti Nuclear Antibody Screen NEGATIVE (NEGATIVE)
== END 2022-06-29 15:06 | disposition home or self-care (01) ==
LOC: HO.LAB 15:05
PROVIDERS: PCP Internal Medicine; Visit Provider Internal Medicine
DX: R79.89 Other specified abnormal findings of blood chemistry (principal); J20.9 Acute bronchitis, unspecified; E78.00 Pure hypercholesterolemia, unspecified; M54.50 Low back pain, unspecified
CPT/HCPCS: 36415; 71046; 80053; 80061; 81001; 82306; 82607; 82746; 84439; 84443; 85025; 85652; 86038; 86039; 87071

== ENCOUNTER 2023-03-22 09:01 | Outpatient (REF) | payer MEDICARE, MEDICAID, SELFPAY ==
--- NOTE | 2023-03-22 09:12 | ECG_ITS ---
Test Reason : palpitations Blood Pressure : / mmHG Vent. Rate : 089 BPM Atrial Rate : 089 BPM P-R Int : 128 ms QRS Dur : 088 ms QT Int : 344 ms P-R-T Axes : 062 052 054 degrees QTc Int : 418 ms Normal sinus rhythm with sinus arrhythmia Normal ECG When compared with ECG of 30-NOV-2019 15:06, Vent. rate has increased BY 35 BPM Referred By: Awilda Sandoval Electronically Signed By:BONILLA GUADALUPE MD
[2023-03-22 09:14] LABS: MANUAL DIFF FLAG NO
[2023-03-22 09:55] LABS: Basophils Absolute Auto 0.1 X10*3/uL (0.0-0.2); Basophils Percent Auto 0.6 % (0-2); Eosinophils Absolute Auto 0.1 X10*3/uL (0.0-0.4); Eosinophils Percent Auto 0.7 % (0-4); Hematocrit 48.7 % (37.0-47.0); Hemoglobin 16.2 g/dl (12.0-16.0); Imm Gran Abs Auto 0.09 X10*3/uL (0.00-0.03); Imm Gran Pct Auto 0.4 % (0.0-0.4); Lymphocytes Absolute Auto 2.5 X10*3/uL (1.2-4.9); Lymphocytes Percent Auto 12.2 % (20-40); Mean Corpuscular HGB Conc 33.3 g/dl (31.0-35.0); Mean Corpuscular Hemoglobin 30.7 pg (27.0-33.0); Mean Corpuscular Volume 92.2 fL (80.0-98.0); Mean Platelet Volume 9.5 fL (9.4-12.3); Monocytes Absolute Auto 1.5 X10*3/uL (0.1-1.2); Monocytes Percent Auto 7.2 % (2-11); Neutrophils Absolute Auto 16.2 x10*3/uL (2.0-8.3); Neutrophils Percent Auto 78.9 % (45-73); Platelet Count 360 X10*3/uL (160-400); Red Blood Count 5.28 X10*6/uL (4.20-5.50); Red Cell Distribution Width 13.1 % (11.0-16.0); White Blood Count 20.5 X10*3/uL (4.8-10.8)
[2023-03-22 10:04] LABS: Estimated Average Glucose 111 mg/dL; Hemoglobin A1c % 5.5 %
[2023-03-22 10:43] LABS: Alanine Aminotransferase 13 U/L (0-31); Albumin Level 4.6 g/dL (3.5-5.0); Alkaline Phosphatase 89 U/L (39-117); Anion Gap 16 (12-20); Aspartate Amino Transferase 16 U/L (5-31); Bilirubin Total 0.3 mg/dL (0.0-1.0); Blood Urea Nitrogen 11 mg/dL (9-16); Calcium 10.1 mg/dL (8.4-10.2); Carbon Dioxide 24 mmol/L (22-29); Chloride 107 mmol/L (96-108); Estimated Glomerular Filt Rate > 60; Glucose Random 92 mg/dL (60-115); Potassium 4.9 mmol/L (3.3-5.1); Sodium 142 mmol/L (135-145); TSH reflex Free T4 0.86 uIU/mL (0.32-4.0); Total Protein 7.3 g/dL (6.5-8.0); Vitamin D 25-OH Total 79.7 ng/mL (>30)
== END 2023-03-22 09:02 | disposition home or self-care (01) ==
LOC: HO.LAB 09:01
PROVIDERS: PCP Internal Medicine; Visit Provider Nurse Practitioner Family
DX: R00.2 Palpitations (principal); H92.01 Otalgia, right ear; J40 Bronchitis, not specified as acute or chronic; G62.9 Polyneuropathy, unspecified; F33.9 Major depressive disorder, recurrent, unspecified; E78.00 Pure hypercholesterolemia, unspecified; M79.7 Fibromyalgia; G47.00 Insomnia, unspecified
CPT/HCPCS: 36415; 80053; 82306; 83036; 84443; 85025; 93005

== ENCOUNTER 2023-07-26 15:10 | Outpatient (AMB) | payer MEDICARE, MEDICAID, SELFPAY ==
--- NOTE | 2023-07-26 16:37 | A.OFFPC_ITS ---
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 Allergies Clindamycin HCl Allergy (Unknown, Verified 07/26/23 16:42) esophagus, trouble swallowing gabapentin Allergy (Unknown, Verified 07/26/23 16:42) Unknown ibuprofen Allergy (Unknown, Verified 07/26/23 16:42) nausea metoclopramide [Reglan] Allergy (Unknown, Verified 07/26/23 16:42) jittery NSAIDS (Non-Steroidal Anti-Inflamma [NSAIDS (NON-STEROIDAL ANTI-INFLAMMA] Allergy (Unknown, Verified 07/26/23 16:42) STOMACH UPSET oxycodone [OXYCODONE] Allergy (Unknown, Verified 07/26/23 16:42) palpitations, hyper penicillin V Allergy (Unknown, Verified 07/26/23 16:42) rash ?, hives Penicillins Allergy (Unknown, Verified 07/26/23 16:42) HIVES pseudoephedrine [Sudafed] Allergy (Unknown, Verified 07/26/23 16:42) Unknown tramadol [TRAMADOL] Allergy (Unknown, Verified 07/26/23 16:42) palpitations, hyper vilazodone [Viibryd] Allergy (Unknown, Verified 07/26/23 16:42) dry mouth and tremors zolpidem [Ambien] Allergy (Unknown, Verified 07/26/23 16:42) Unknown bupropion [BUPROPION] Adverse Reaction (Intermediate, Verified 07/26/23 16:42) HTN, BLURRY VISION levofloxacin Adverse Reaction (Unknown, Verified 07/26/23 16:42) weakness, nausea/vomiting Medication List - Last Reconciled 07/26/23 by April Vizcaino MD albuterol sulfate 90 mcg/actuation (Ventolin HFA) 2 puffs inhalation Q6H PRN amitriptyline 20 mg (2 x 10 mg) PO BEDTIME 90 days ascorbate calcium (vitamin C) 1 g PO Q6H azithromycin (Zithromax) For 250 mg dose pack: take 500 mg today (day 1), then 250 mg for 4 days (days 2-5) PO calcium carbonate 1,000 mg (2 x 500 mg calcium (1,250 mg)) PO DAILY cetirizine (Zyrtec) 10 mg PO DAILY PRN cholecalciferol (vitamin D3) 25 mcg PO DAILY clonazepam 1 mg PO BID PRN dexlansoprazole (Dexilant) 60 mg PO DAILY eszopiclone (Lunesta) 3 mg PO BEDTIME ferrous sulfate (Feosol) 325 mg PO DAILY [GROWTH STRENGTH RECOVERY ] meclizine 25 mg PO DAILY triamcinolone acetonide (Nasacort) 2 sprays intranasal DAILY vitamin B complex (B Complex-Vitamin B12 tablet) 1 tab PO DAILY zinc 50 mg PO DAILY Tobacco use date assessed: 07/26/23 Dental Screening Dental Screen Date: 07/26/23 Did you have a dental visit in the last 12 months?: Yes Did you have a dental problem in the last 6 months where you did not have access to dental care?: No Was dental information given to patient?: Patient has dentist HPI Medical Leave Form HPI Details 53-year-old overweight female with GERD hypercholesterolemia recurrent major depression coming in for follow-up. Last seen in May 2023. Received a call in April 2023 from the patient as the patient was saying her brain is shr inking and that she is dizzy and is requesting for CT scan. Did answer her back would not recommend a CT scan as the patient has had multiple CT scans done with negative results. July 01 called in feeling feverish and body aches asking for form to be filled out. June 24 called and COVID positive having body aches and pain and fever asking for Paxil of it but was not granted by the on-call do ctor. July 23 complains of fever body aches and sore throat for the past 3 weeks flu and COVID negative patient wants paid family leave filled up patient is here for follow-up. DAughter is the proxy care. 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 getting sick 3-4 x a month, gets myalgia- [facility] Medical History (Updated 07/26/23 @ 17:35 by April Vizcaino MD) Palpitation SARS-CoV-2 positive Generalized anxiety disorder Allergy to vaccine Low back pain Gallbladder polyp Closed left clavicular fracture History of miscarriage Temporal lobe epilepsy Hypercholesterolemia Fibromyalgia Migraine Vitamin D deficiency Bile salt-induced diarrhea Insomnia GERD (gastroesophageal reflux disease) Surgical History History of cholecystectomy Family History Father Cancer Mother CVD (cerebrovascular disease) Sister Breast cancer Family/Other Brain cancer Paternal Uncle Colon cancer Paternal Grandmother Stomach cancer Other Mental health disorder Social History Housing: Apartment Alcohol intake: never Patient Tobacco Use Status: Former Tobacco user Tobacco use type: Cigarette Years Smoked: 1 pack per week e-Cigarette/Vaping Use: Never Used Second Hand Smoke Exposure: No service: No Current occupational status: unemployed Gender identity: Female Cognitive needs: No Hearing needs: No Vision needs: Yes Questionnaire Thrive Questionnaire Date Thrive assessed: 12/11/22 AUDIT C Alcohol Use Questionnaire (AUDIT-C) 1. How often do you have a drink containing alcohol?: Never 2. How many drinks containing alcohol do you have on a typical day when you are drinking?: 1 or 2 (none) 3. How often do you have six or more drinks on one occasion?: Never Total Score: 0 Score Reviewed/Action Taken: No MONY-7 AMB Questionnaire MONY-7 Date MONY - 7 assessed: 05/20/23 Source: Developed by Drs. Fady Paredes, Arlen Stewart, Abhi Morris and colleagues, with an educational carina from [employer]. Physical exam (Primary Care) Vital Signs: Last Vital Signs Pulse 87 07/26/23 16:39 BP 124/76 07/26/23 16:39 Pulse Ox 97 07/26/23 16:39 Oxygen Delivery Method Room Air 07/26/23 16:39 BMI result Body Mass Index 27.6 Tobacco/Smoking Status: Tobacco use Status Tobacco use date assessed 07/26/23 07/26/23 16:39 Patient Tobacco Use Status Former Tobacco user 07/26/23 16:39 Tobacco use type Cigarette 07/26/23 16:39 e-Cigarette/Vaping Use Never Used 07/26/23 16:39 Thrive Assessment: Date of Thrive Assessment Date Thrive assessed 12/11/22 07/26/23 16:39 Const General: alert; No acute distress Eyes Conjunctivae: conjunctivae normal Resp Auscultation: clear to auscultation bilaterally Cardio Rate: regular rate Rhythm: regular rhythm GI Inspection: Yes normal to inspection Extrem General: Yes normal to inspection and No edema Assessment and Plan Assessment & Plan (1) GERD (gastroesophageal reflux disease): Code(s): K21.9 - Gastro-esophageal reflux disease without esophagitis Plan: Avoid the foods that causes that usually spicy foods, tomato products, juices, c offee, soda and foods that your sensitive to. After eating do not lie down, allow 3-4 hours before in lie down. And keep the head of bed above 30 degrees to avoid the acid from going up. (2) Migraine: Code(s): G43.909 - Migraine, unspecified, not intractable, without status migrainosus Plan: Keep well hydrated, keep active and proper sleeping habit (3) Hypercholesterolemia: Code(s): E78.00 - Pure hypercholesterolemia, unspecified Plan: Avoid fried foods, chicken skin, eggs, butter margarine, pastries and meat. Be it pork or beef they have a lot of cholesterol LDL goal of less than 130 and triglyceride of less than 150 in the last blood work was June 2022 147 (4) Recurrent major depression: Comment: Psychiatry and counselling Code(s): F33.9 - Major depressive disorder, recurrent, unspecified Plan: Continue with counseling and therapy patient is on amitriptyline 20 mg at bedtime clonazepam (5) Recurrent respiratory infection: Code(s): J98.8 - Other specified respiratory disorders Plan: referral to Pulmonary and PFT to do (6) Colon cancer screening: Code(s): Z12.11 - Encounter for screening for malignant neoplasm of colon Plan: referral to GI done (7) Acute bronchitis: Code(s): J20.9 - Acute bronchitis, unspecified Plan: antibiotic sent Orders: Orders Vitamin B12 and Folate Today E78.00 - Pure hypercholesterolemia, unspecified UA w Microscopic Today E78.00 - Pure hypercholesterolemia, unspecified PFT pulmonary function test Today J98.8 - Other specified respiratory disorders Complete Blood Count Auto Diff Today E78.00 - Pure hypercholesterolemia, unspecified Comprehensive Met. Panel Today E78.00 - Pure hypercholesterolemia, unspecified Free T4 (Free Thyroxine) Today E78.00 - Pure hypercholesterolemia, unspecified Thyroid Stimulating Hormone Today E78.00 - Pure hypercholesterolemia, unspecified Lipid Panel Today E78.00 - Pure hypercholesterolemia, unspecified Lyme IgG/IgM w/reflex to WB Today E78.00 - Pure hypercholesterolemia, unspecified Amylase Today E78.00 - Pure hypercholesterolemia, unspecified Lipase Today E78.00 - Pure hypercholesterolemia, unspecified Vitamin D 25-OH Total Today E78.00 - Pure hypercholesterolemia, unspecified FL upper GI series Today K21.9 - Gastro-esophageal reflux disease without esop hagitis, R13.10 - Dysphagia, unspecified Referrals Pulmonology Referral J98.8 - Other specified respiratory disorders Gastroenterology Referral K21.9 - Gastro-esophageal reflux disease without esophagitis, Z12.11 - Encounter for screening for malignant neoplasm of colon Medications: New azithromycin (Zithromax) For 250 mg dose pack: take 500 mg today (day 1), then 250 mg for 4 days (days 2-5) PO 6 tabs 0RF J20.9 - Acute bronchitis, unspecified albuterol sulfate 90 mcg/actuation (Ventolin HFA) 2 puffs inhalation Q6H PRN 8.5 grams 0RF shortness of breath or wheezing J20.9 - Acute bronchitis, unspecified Changed From clonazepam 1 mg PO TID 30 days PRN 90 tabs 0RF anxiety To clonazepam Psychiatry and Becky juarez therapist 1 mg PO BID PRN anxiety Coding Level of Care Code Est Pt Level 4 (99986) Diagnoses GERD (gastroesophageal reflux disease) K21.9 Migraine G43.909 Hypercholesterolemia E78.00 Recurrent major depression F33.9 Recurrent respiratory infection J98.8 Colon cancer screening Z12.11 Acute bronchitis J20.9
[2023-07-26 16:39] VITALS: BP 124/76; PULSE 87; O2SAT 97; BMI 27.6
== END 2023-07-26 17:46 | disposition home or self-care (01) ==
PROVIDERS: PCP Internal Medicine; Visit Provider Internal Medicine
DX: K21.9 Gastro-esophageal reflux disease without esophagitis (principal); G43.909 Migraine, unspecified, not intractable, without status migrainosus; E78.00 Pure hypercholesterolemia, unspecified; F33.9 Major depressive disorder, recurrent, unspecified; J98.8 Other specified respiratory disorders; Z12.11 Encounter for screening for malignant neoplasm of colon; J20.9 Acute bronchitis, unspecified
CPT/HCPCS: 99214

== ENCOUNTER 2023-08-01 | Outpatient (REF) | payer MEDICARE, MEDICAID, SELFPAY ==
--- NOTE | 2023-08-01 09:07 | PFT_ITS ---
INDICATION: Respiratory infection. SPIROMETRY: FEV1 to FVC of 73% with an FEV1 of 1.02 L, which is 36% predicted. An FVC of 1.41 L, which is 40% predicted. No significant response to bronchodilators noted. Maximum voluntary ventilation 29% predicted. LUNG VOLUMES: Total lung capacity 57% predicted with an expiratory reserve volume of 60% predicted. DIFFUSION CAPACITY: DLCO 50% predicted with a DLCO corrected for the alveolar volume of 80% predicted. COMPARISONS: None. INTERPRETATION: No obstructive ventilatory defects. No significant response to bronchodilator is noted. There is a very severe decrease in the maximum voluntary ventilation, suggesting the possibility of deconditioning and also neuromuscular disease. Lung volumes also demonstrate a restrictive ventilatory defect consistent with moderate restrictive lung disease. Neuromuscular conditions indeed are in the differential, although cannot rule out underlying parenchymal lung conditions or pleural based disease. The patient also has a moderate diffusion impairment that does correct to normal when correcting for the alveolar volume and likely due to hypoexpansion of the lung. This is a very abnormal PFT. Pulmonary consultation is recommended. MD JR Meade/SNEHA / [phone]
[2023-08-01 09:15] LABS: MANUAL DIFF FLAG NO
[2023-08-01 09:44] LABS: Basophils Absolute Auto 0.1 X10*3/uL (0.0-0.2); Basophils Percent Auto 0.6 % (0-2); Eosinophils Absolute Auto 0.2 X10*3/uL (0.0-0.4); Eosinophils Percent Auto 1.5 % (0-4); Hematocrit 45.4 % (37.0-47.0); Imm Gran Abs Auto 0.15 X10*3/uL (0.00-0.03); Imm Gran Pct Auto 1.4 % (0.0-0.4); Lymphocytes Absolute Auto 3.7 X10*3/uL (1.2-4.9); Lymphocytes Percent Auto 34.2 % (20-40); Mean Corpuscular Hemoglobin 31.2 pg (27.0-33.0); Mean Corpuscular Volume 94.4 fL (80.0-98.0); Mean Platelet Volume 9.2 fL (9.4-12.3); Monocytes Percent Auto 9.4 % (2-11); Neutrophils Absolute Auto 5.8 x10*3/uL (2.0-8.3); Neutrophils Percent Auto 52.9 % (45-73); Platelet Count 354 X10*3/uL (160-400); Red Blood Count 4.81 X10*6/uL (4.20-5.50); Red Cell Distribution Width 12.9 % (11.0-16.0); White Blood Count 10.9 X10*3/uL (4.8-10.8)
[2023-08-01 10:29] LABS: Alanine Aminotransferase 16 U/L (0-31); Albumin Level 4.5 g/dL (3.5-5.0); Alkaline Phosphatase 87 U/L (39-117); Amylase 60 U/L (28-100); Anion Gap 13 (12-20); Aspartate Amino Transferase 21 U/L (5-31); Bilirubin Total 0.2 mg/dL (0.0-1.0); Blood Urea Nitrogen 12 mg/dL (9-16); Calcium 9.9 mg/dL (8.4-10.2); Carbon Dioxide 27 mmol/L (22-29); Chloride 103 mmol/L (96-108); Cholesterol 231 mg/dL (<200); Estimated Glomerular Filt Rate > 60; Glucose Random 108 mg/dL (60-115); HDL Cholesterol 49 mg/dL (>40); LDL Cholesterol Calculated 143 mg/dL (<100); Lipase 29 U/L (8-78); Potassium 4.3 mmol/L (3.3-5.1); Sodium 139 mmol/L (135-145); Total Protein 7.7 g/dL (6.5-8.0); Triglycerides 198 mg/dL (<150)
[2023-08-01 10:42] LABS: Appearance Urine Clear; Color Urine Yellow; Glucose Urine UA Negative (Negative); Leukocyte Esterase Urine Negative (Negative); Nitrite Urine Negative (Negative); PH 7.5 (5.0-9.0); Specific Gravity - Urine <= 1.005 (1.005-1.025); Urine Blood Negative (Negative); Urine Ketones Negative (Negative); Urine Protein Negative (Neg-Trace)
[2023-08-01 10:43] LABS: Free T4 (Free Thyroxine) 0.92 ng/dL (0.71-1.85); Thyroid Stimulating Hormone 0.97 uIU/mL (0.32-4.0); Vitamin D 25-OH Total 78.7 ng/mL (>30)
[2023-08-01 10:46] LABS: Bacteria Urine None Seen (None Seen); Hyaline Casts Urine 0-2 /LPF (0-2); RBC Urine 0-2 /HPF (0-2); Squamous Epithelial Cell Urine 0-2 /HPF (0-2); WBC Urine 0-5 /HPF (0-5)
[2023-08-01 10:57] LABS: Folate 15.6 ng/mL (> or = 4.0); Vitamin B12 1339 pg/mL (200-900)
[2023-08-03 02:03] LABS: Lyme Abs Screen <0.90 index
== END 2023-08-01 00:01 | disposition home or self-care (01) ==
LOC: HO.RESP
PROVIDERS: PCP Internal Medicine; Visit Provider Internal Medicine
DX: J98.8 Other specified respiratory disorders (principal); E78.00 Pure hypercholesterolemia, unspecified; E55.9 Vitamin D deficiency, unspecified
CPT/HCPCS: 36415; 80053; 80061; 81001; 82150; 82306; 82607; 82746; 83690; 84439; 84443; 85025; 86617; 86618; 94010; 94727; 94729

== ENCOUNTER → 2023-08-01 09:07 | Outpatient (BNV) | payer MEDICARE, MEDICAID, SELFPAY | PROVIDERS: PCP Internal Medicine; Visit Provider Hospitalist | DX: R06.09 Other forms of dyspnea (principal) | CPT/HCPCS: 94060; 94727; 94729 ==

== ENCOUNTER 2023-08-02 08:08 | Outpatient (AMB) | payer MEDICARE, MEDICAID, SELFPAY ==
--- NOTE | 2023-08-02 08:51 | MHC.OFFWIV ---
Intake Vital Signs 08/02/23 08:55 Weight 165 lb BP 120/80 Blood Pressure Location Rt brachial Position Sitting Pulse 75 Pulse Source Pulse Oximeter Temp 97.3 F Temp Source Temporal Artery Scan Pulse Oximetry (%) 98 Oxygen Delivery Method Room Air Intake Visit Reasons: EP Cough (masked) Intake Note: Patient here because she has been sick for about 3 weeks with cough, sob and ribs and back hurt when coughing or breathing and wheezing at night. Patient Tobacco Use Status: Former Tobacco user Allergies Clindamycin HCl Allergy (Unknown, Verified 08/02/23 08:57) esophagus, trouble swallowing gabapentin Allergy (Unknown, Verified 08/02/23 08:57) Unknown ibuprofen Allergy (Unknown, Verified 08/02/23 08:57) nausea metoclopramide [Reglan] Allergy (Unknown, Verified 08/02/23 08:57) jittery NSAIDS (Non-Steroidal Anti-Inflamma [NSAIDS (NON-STEROIDAL ANTI-INFLAMMA] Allergy (Unknown, Verified 08/02/23 08:57) STOMACH UPSET oxycodone [OXYCODONE] Allergy (Unknown, Verified 08/02/23 08:57) palpitations, hyper penicillin V Allergy (Unknown, Verified 08/02/23 08:57) rash ?, hives Penicillins Allergy (Unknown, Verified 08/02/23 08:57) HIVES pseudoephedrine [Sudafed] Allergy (Unknown, Verified 08/02/23 08:57) Unknown tramadol [TRAMADOL] Allergy (Unknown, Verified 08/02/23 08:57) palpitations, hyper vilazodone [Viibryd] Allergy (Unknown, Verified 08/02/23 08:57) dry mouth and tremors zolpidem [Ambien] Allergy (Unknown, Verified 08/02/23 08:57) Unknown bupropion [BUPROPION] Adverse Reaction (Intermediate, Verified 08/02/23 08:57) HTN, BLURRY VISION levofloxacin Adverse Reaction (Unknown, Verified 08/02/23 08:57) weakness, nausea/vomiting Do you need a note to return to daycare/school/sports/work: No HPI HPI Comments History of Present Illness Details This is a 53-year-old female who presents to the office today for sick visit. Patient complaining of a cough, which is intermittently dry but intermittently productive, for the past 3 weeks. She also reports some generalized fatigue. She denies any fevers or chills. She denies any sore throat, headaches, myalgias, congestion/rhinorrhea. She denies any chest pain or shortness of breath. She denies any known sick contacts but states that her grandson tested positive for strep throat yesterday. She denies any sore throat. Patient does report some bilateral upper back pain that occurs with coughing. [facility] Medical History (Updated 07/26/23 @ 17:35 by Arpil Vizcaino MD) Palpitation SARS-CoV-2 positive Generalized anxiety disorder Allergy to vaccine Low back pain Gallbladder polyp Closed left clavicular fracture History of miscarriage Temporal lobe epilepsy Hypercholesterolemia Fibromyalgia Migraine Vitamin D deficiency Bile salt-induced diarrhea Insomnia GERD (gastroesophageal reflux disease) Surgical History History of cholecystectomy Family History Father Cancer Mother CVD (cerebrovascular disease) Sister Breast cancer Family/Other Brain cancer Paternal Uncle Colon cancer Paternal Grandmother Stomach cancer Other Mental health disorder Social History Housing: Apartment Alcohol intake: never Patient Tobacco Use Status: Former Tobacco user Tobacco use type: Cigarette Years Smoked: 1 pack per week e-Cigarette/Vaping Use: Never Used Second Hand Smoke Exposure: No service: No Current occupational status: unemployed Gender identity: Female Cognitive needs: No Hearing needs: No Vision needs: Yes Review of Systems Const All systems reviewed & are unremarkable except as noted in HPI and below Reports no additional complaints Eyes Reports no additional complaints ENT Reports no additional complaints Card Reports no additional complaints Resp Reports no additional complaints GI Reports no additional complaints Reports no additional complaints Musc Reports no additional complaints Skin/Breast Reports system reviewed and no additional complaints, except as documented Neuro Reports no additional complaints Psych Reports no additional complaints Endo Reports no additional complaints Jonnathan/Lymph Reports no additional complaints Aller/Immun Reports no additional complaints Physical Exam Vital Signs: Last Vital Signs Temp 97.3 F 08/02/23 08:55 Pulse 75 08/02/23 08:55 BP 120/80 08/02/23 08:55 Pulse Ox 98 08/02/23 08:55 Oxygen Delivery Method Room Air 08/02/23 08:55 Const General: cooperative, healthy appearing, no acute distress and well developed Orientation/consciousness: patient oriented x3 HEENT Head: Yes normal to inspection Ears: hearing grossly normal bilaterally General nose exam: Normal external nose present Face and sinus: Yes normal facial exam Mouth: Normal oral and palatal mucosa present Eyes General: appearance normal, both eyes and all related structures Pupils: Equal, round and reactive pupils present EOM: EOMs intact bilaterally Resp Effort & Inspection: normal respiratory effort and no respiratory distress Auscultation: clear to auscultation bilaterally Cardio Rate: regular rate Rhythm: regular rhythm Heart sounds: no gallops, no murmurs and no rubs Peripheral pulses: Peripheral pulses 2+ throughout GI Inspection: No distended Palpation (GI): Soft to palpation and nontender Auscultation: normal bowel sounds Skin General skin exam: no rashes or lesions noted Neuro General: patient oriented x3 Cranial nerves: Yes CN's II-XII intact bilaterally and Yes Equal, round and reactive pupils present Gait exam (Neuro): Normal gait present Motor exam (neuro): 5/5 motor strength present throughout Extrem General: Yes normal to inspection, Yes full ROM and Yes no clubbing, cyanosis or edema Psych Appearance: grossly normal Mental Status: mental status grossly normal Assessment & Plan Assessment & Plan (1) Bronchitis: Code(s): J40 - Bronchitis, not specified as acute or chronic Plan This is a 53-year-old female presenting to the office complaining of a persistent cough x3 weeks. On physical examination, her vital signs are stable, she has no adventitious breath sounds, and she is overall nontoxic appearing. Her history and physical most consistent with acute bronchitis versus pneumonia. Chest x-ray has been ordered to evaluate for pneumonia. Patient has been sent home on p.o. azithromycin 500 mg today followed by 250 mg daily x4 days as well as p.o. prednisone 40 mg daily x5 days. Patient was also sent home on p.o. benzonatate 100 mg 3 times daily as needed for coughing. Patient also likely has muscular/intercostal strain in the setting of coughing causing her upper back pain. There are no signs of trauma/injury. Recommended p.o. acetaminophen/ibuprofen as long as patient has no medical contraindications. Also recommended gbji-[id number] lidocaine patches and ice to the area. Patient was instructed to follow-up here or proceed directly to the emergency room if she were to develop worsening symptoms, fever/chills, or shortness of breath. Patient verbalizes her understanding and she is in agreement with the plan. Orders: Orders XR chest 2V Today R05.9 - Cough, unspecified Medications: New prednisone 40 mg (2 x 20 mg) PO DAILY 10 tabs 0RF azithromycin For 250 mg dose pack: take 500 mg today (day 1), then 250 mg for 4 days (days 2-5) PO 6 tabs 0RF benzonatate 100 mg PO TID PRN 10 caps 0RF cough Coding Level of Care Code Est Pt Level 3 (04658) Diagnoses Bronchitis J40
[2023-08-02 08:55] VITALS: BP 120/80; PULSE 75; TEMP 36.3; O2SAT 98
== END 2023-08-02 09:58 | disposition home or self-care (01) ==
PROVIDERS: PCP Internal Medicine; Visit Provider Physician Assistant Medical
DX: J40 Bronchitis, not specified as acute or chronic (principal)
CPT/HCPCS: 99213

== ENCOUNTER 2023-08-02 09:15 | Outpatient (REF) | payer MEDICARE, MEDICAID, SELFPAY ==
--- NOTE | ~2023-08-02 | XR_ITS ---
EXAMINATION: XR CHEST CLINICAL INFORMATION: Cough. COMPARISON: Most recent chest radiograph dated 06/29/2022. TECHNIQUE: 2 views of the chest were obtained. FINDINGS: The lungs are clear. The cardiomediastinal silhouette is normal in size. There is no pleural effusion or pneumothorax. No acute osseous abnormality. Right upper quadrant surgical clips. XR/XR chest 2V IMPRESSION: No acute cardiopulmonary findings.
== END 2023-08-02 09:16 | disposition home or self-care (01) ==
LOC: HO.HMGCX 09:15
PROVIDERS: PCP Internal Medicine; Visit Provider Physician Assistant Medical
DX: R05.9 Cough, unspecified (principal)
CPT/HCPCS: 71046

== ENCOUNTER 2023-08-08 22:57 | Emergency (ER) | payer MEDICARE, MEDICAID, SELFPAY ==
--- NOTE | ~2023-08-08 | CT_ITS ---
EXAMINATION: CT ABDOMEN AND PELVIS WITH CONTRAST CLINICAL INFORMATION: Left-sided mid abdomen pain, question diverticulitis COMPARISON: 05/11/2017 TECHNIQUE: Multidetector volumetric images were obtained from the superior aspect of the liver through the pubic symphysis following administration 85 mL of Omnipaque 350 intravenous contrast. Sagittal and coronal reformatted images were obtained on the technologist's workstation. Oral contrast: No This CT examination was performed using dose optimization techniques as appropriate, variously including the following: *Automated exposure control *Adjustment of mA and/or kV according to patient size (this includes techniques or standardized protocols for targeted exams where dose is matched to indication/reason for exam; i.e. extremities or head) *Use of iterative reconstruction technique DLP: 588 mGy-cm FINDINGS: LUNG BASES: The visualized lung bases are unremarkable. LIVER, GALLBLADDER, AND BILIARY TREE: The liver is normal in size, shape, and attenuation. A few tiny scattered hypoattenuating hepatic foci are too small to characterize, suggestive of cysts. Mild intrapelvic biliary ductal prominence which may be physiologic in the setting of prior cholecystectomy. PANCREAS: Unremarkable. SPLEEN: Unremarkable. ADRENAL GLANDS: Unremarkable. KIDNEYS AND URETERS: Bilateral nephrograms are symmetric. No hydronephrosis or obstructing calculus identified. Nonspecific mild bilateral perinephric stranding. BLADDER: Unremarkable. GASTROINTESTINAL TRACT: No evidence of bowel obstruction or significant wall thickening. The appendix is unremarkable. No free fluid or free air is seen. ABDOMINAL WALL: No significant hernia is appreciated. LYMPH NODES: Normal. VASCULAR: Moderate atherosclerotic calcification along the aorta. PELVIC VISCERA: Unremarkable. OSSEOUS STRUCTURES: Unremarkable. CT/CT abdomen pelvis w IV con IMPRESSION: No acute findings identified in the abdomen/pelvis.
[2023-08-08 23:02] VITALS: BP 140/80; PULSE 84; O2SAT 99
[2023-08-08 23:10] VITALS: BP 135/75; PULSE 78; RESP 16; TEMP 37.2; O2SAT 98; BMI 23.2
[2023-08-08 23:50] LABS: Basophils Absolute Auto 0.1 X10*3/uL (0.0-0.2); Basophils Percent Auto 0.7 % (0-2); Eosinophils Absolute Auto 0.4 X10*3/uL (0.0-0.4); Eosinophils Percent Auto 2.3 % (0-4); Hematocrit 45.2 % (37.0-47.0); Imm Gran Abs Auto 0.24 X10*3/uL (0.00-0.03); Imm Gran Pct Auto 1.6 % (0.0-0.4); Lymphocytes Percent Auto 39.7 % (20-40); MANUAL DIFF FLAG SCAN; Mean Corpuscular HGB Conc 33.2 g/dl (31.0-35.0); Mean Corpuscular Hemoglobin 31.3 pg (27.0-33.0); Mean Corpuscular Volume 94.2 fL (80.0-98.0); Mean Platelet Volume 9.1 fL (9.4-12.3); Monocytes Absolute Auto 1.3 X10*3/uL (0.1-1.2); Monocytes Percent Auto 8.5 % (2-11); Neutrophils Absolute Auto 7.3 x10*3/uL (2.0-8.3); Neutrophils Percent Auto 47.2 % (45-73); Platelet Count 394 X10*3/uL (160-400); Red Cell Distribution Width 13.2 % (11.0-16.0); SCAN SMEAR FLAG 1; White Blood Count 15.5 X10*3/uL (4.8-10.8)
[2023-08-08 23:51] LABS: Appearance Urine Clear; Color Urine Yellow; Glucose Urine UA Negative (Negative); Leukocyte Esterase Urine Negative (Negative); Nitrite Urine Negative (Negative); Specific Gravity - Urine <= 1.005 (1.005-1.025); Urine Blood Negative (Negative); Urine Ketones Negative (Negative); Urine Protein Negative (Neg-Trace)
[2023-08-09 00:08] LABS: Alanine Aminotransferase 14 U/L (0-31); Albumin Level 4.1 g/dL (3.5-5.0); Alkaline Phosphatase 78 U/L (39-117); Anion Gap 13 (12-20); Aspartate Amino Transferase 15 U/L (5-31); Bilirubin Direct < 0.2 mg/dL (0.0-0.5); Bilirubin Total 0.1 mg/dL (0.0-1.0); Blood Urea Nitrogen 14 mg/dL (9-16); Calcium 9.5 mg/dL (8.4-10.2); Carbon Dioxide 27 mmol/L (22-29); Chloride 105 mmol/L (96-108); Creatinine Clr Calc Pharmacy 75.6; Estimated Glomerular Filt Rate > 60; Glucose Random 116 mg/dL (60-115); Lipase 31 U/L (8-78); Potassium 4.4 mmol/L (3.3-5.1); Sodium 141 mmol/L (135-145); Total Protein 7.1 g/dL (6.5-8.0)
[2023-08-09 00:14] LABS: Lymphocytes Absolute Auto 6.1 X10*3/uL (1.2-4.9); SLIDE REVIEW VERIFIED
[2023-08-09 01:13] VITALS: BP 139/70; PULSE 70; RESP 18; TEMP 36.7; O2SAT 97
--- NOTE | 2023-08-09 02:35 | ED.ABDPAIN ---
HPI - Abdominal Pain General Chief Complaint: Abdominal Pain Stated Complaint: abd painx3 weeks,nausea, dizzy Time Seen by Provider: 08/09/23 01:52 Source: patient Mode of arrival: ambulatory Limitations: no limitations History of Present Illness HPI narrative: Patient complaining of pain in left upper abdomen for last 3 weeks T-max 101.9 degrees vomited 2 times had diarrhea 3 times prior to arrival feels fatigued lethargic pain is localized mostly on the left side does have chills patient took Tylenol prior to arrival looks comfortable on arrival Related Data Home Medications Medication Instructions Recorded Confirmed ascorbate calcium (vitamin C) 500 1 g PO Q6H 10/21/20 07/26/23 mg tablet cholecalciferol (vitamin D3) 25 25 mcg PO DAILY 10/21/20 07/26/23 mcg (1,000 unit) capsule zinc 50 mg tablet 50 mg PO DAILY 10/21/20 07/26/23 ferrous sulfate 325 mg (65 mg 325 mg PO DAILY 07/25/21 07/26/23 iron) tablet (Feosol) GROWTH STRENGTH RECOVERY 05/20/23 07/26/23 clonazepam 1 mg tablet 1 mg PO BID PRN anxiety 07/26/23 07/26/23 Previous Rx's Medication Instructions Recorded calcium carbonate 500 mg calcium 1,000 mg (2 x 500 mg calcium 11/23/20 (1,250 mg) capsule (1,250 mg)) PO DAILY #60 caps vitamin B complex (B 1 tab PO DAILY #20 tabs 09/08/21 Complex-Vitamin B12 tablet) eszopiclone 3 mg tablet (Lunesta) 3 mg PO BEDTIME #30 tabs 08/20/22 amitriptyline 10 mg tablet 20 mg (2 x 10 mg) PO BEDTIME 90 05/20/23 days #180 tabs cetirizine 10 mg capsule (Zyrtec) 10 mg PO DAILY PRN allergy 05/20/23 symptoms #30 caps dexlansoprazole 60 mg 60 mg PO DAILY #30 caps 05/20/23 capsule,biphase delayed release (Dexilant) triamcinolone acetonide 55 mcg 2 spray intranasal DAILY #16.9 mL 05/20/23 nasal spray aerosol (Nasacort) meclizine 25 mg tablet 25 mg PO DAILY #90 tabs 07/12/23 albuterol sulfate 90 mcg/actuation 2 puff inhalation Q6H PRN 07/26/23 aerosol inhaler (Ventolin HFA) shortness of breath or wheezing #8.5 grams azithromycin 250 mg tablet See Rx Instructions PO .COMPLEX #6 07/26/23 (Zithromax) tabs benzonatate 200 mg capsule 200 mg PO TID 5 days #15 caps 07/30/23 azithromycin 250 mg tablet See Rx Instructions PO .COMPLEX #6 08/02/23 tabs benzonatate 100 mg capsule 100 mg PO TID PRN cough #10 caps 08/02/23 fluconazole 150 mg tablet 150 mg PO ONCE symptoms of yeast 08/02/23 infection #1 tab prednisone 20 mg tablet 40 mg (2 x 20 mg) PO DAILY #10 tabs 08/02/23 dicyclomine 20 mg tablet 20 mg PO TID PRN abdominal pain 08/09/23 #20 tabs Allergies Allergy/AdvReac Type Severity Reaction Status Date / Time Clindamycin HCl Allergy Unknown esophagus, Verified 08/02/23 08:57 trouble swallowing gabapentin Allergy Unknown Unknown Verified 08/02/23 08:57 ibuprofen Allergy Unknown nausea Verified 08/02/23 08:57 metoclopramide [Reglan] Allergy Unknown jittery Verified 08/02/23 08:57 NSAIDS (Non-Steroidal Allergy Unknown STOMACH Verified 08/02/23 08:57 Anti-Inflamma UPSET [NSAIDS (NON-STEROIDAL ANTI-INFLAMMA] oxycodone [OXYCODONE] Allergy Unknown palpitations, Verified 08/02/23 08:57 hyper penicillin V Allergy Unknown rash ?, Verified 08/02/23 08:57 hives Penicillins Allergy Unknown HIVES Verified 08/02/23 08:57 pseudoephedrine [Sudafed] Allergy Unknown Unknown Verified 08/02/23 08:57 tramadol [TRAMADOL] Allergy Unknown palpitations, Verified 08/02/23 08:57 hyper vilazodone [Viibryd] Allergy Unknown dry mouth Verified 08/02/23 08:57 and tremors zolpidem [Ambien] Allergy Unknown Unknown Verified 08/02/23 08:57 bupropion [BUPROPION] AdvReac Intermediate HTN, Verified 08/02/23 08:57 BLURRY VISION levofloxacin AdvReac Unknown weakness, Verified 08/02/23 08:57 nausea/vomiting Review of Systems Review of Systems Yes all other systems are reviewed and are negative [facility] Past Medical History Medical History Palpitation SARS-CoV-2 positive Generalized anxiety disorder Allergy to vaccine Low back pain Gallbladder polyp Closed left clavicular fracture History of miscarriage Temporal lobe epilepsy Hypercholesterolemia Fibromyalgia Migraine Vitamin D deficiency Bile salt-induced diarrhea Insomnia GERD (gastroesophageal reflux disease) Surgical History History of cholecystectomy Family History Family History Father Cancer Mother CVD (cerebrovascular disease) Sister Breast cancer Family/Other Brain cancer Paternal Uncle Colon cancer Paternal Grandmother Stomach cancer Other Mental health disorder Social History Social History Housing: Apartment Alcohol intake: never Patient Tobacco Use Status: Former Tobacco user Tobacco use type: Cigarette Years Smoked: 1 pack per week Smoked in Last 30 Days: No e-Cigarette/Vaping Use: Never Used Second Hand Smoke Exposure: No Use of substances other than those prescribed or required for medical reasons: No Advance Directives: No Advance Directives Information Provided: Yes service: No Current occupational status: unemployed Gender identity: Female Cognitive needs: No Hearing needs: No Vision needs: Yes Physical Exam ED Vital Signs: Vital Signs - 24 hr 08/08/23 23:10 08/09/23 01:13 08/09/23 03:54 Temperature 98.9 F 98.0 F 97.7 F Pulse Rate 78 70 66 Respiratory Rate 16 18 16 Blood Pressure 135/75 139/70 141/63 H Pulse Oximetry 98 97 97 Oxygen Delivery Method Room Air Room Air Room Air 08/09/23 04:57 Temperature 97.7 F Pulse Rate 70 Respiratory Rate 16 Blood Pressure 130/64 Pulse Oximetry 97 Oxygen Delivery Method Room Air BMI result Body Mass Index 23.2 Appearance: Alert. Oriented X3. No acute distress. Eyes: No pallor or icterus ENT: Pharynx normal. Oral Mucosa moist Neck: Normal inspection. Neck supple. CVS: Normal heart rate and rhythm. Pulses normal. Respiratory: No respiratory distress. Equal air entry bilateral, no wheezing/rales/rhonchi Abdomen: Soft , mild diffuse tenderness left side no rebound tenderness or guard Bowel sounds are present, no mass palpable, no CVA tenderness Skin: Skin warm and dry. Normal skin color. Normal skin turgor. Extremities: No lower extremity edema. No calf tenderness Neuro: Oriented X 3. Medical Decision Making Medical Decision Making [facility] Narrative: Patient has left-sided upper quadrant abdominal pain etiology not very clear CT scan of the abdomen was negative lab workup showed slight leukocytosis with left shift which is secondary to recent prednisone use on 08/02 urine was negative patient looks comfortable will discharge patient home advised to follow up with PCP Differential Diagnosis Differential Diagnoses: The differential diagnosis associated with the presentation includes Diverticulitis/gastritis/IBS/colitis Lab Data [facility] Lab Attestation statement: I reviewed the patient's lab results. 08/08/23 23:41 08/08/23 23:41 Labs: Lab Results 08/08/23 Range/Units 23:41 WBC 15.5 H (4.8-10.8) X10*3/uL RBC 4.80 (4.20-5.50) X10*6/uL Hgb 15.0 (12.0-16.0) g/dl Hct 45.2 (37.0-47.0) % MCV 94.2 (80.0-98.0) fL MCH 31.3 (27.0-33.0) pg MCHC 33.2 (31.0-35.0) g/dl RDW 13.2 (11.0-16.0) % Plt Count 394 (160-400) X10*3/uL MPV 9.1 L (9.4-12.3) fL Immature Gran % (Auto) 1.6 H (0.0-0.4) % Neut % (Auto) 47.2 (45-73) % Lymph % (Auto) 39.7 (20-40) % [place] % (Auto) 8.5 (2-11) % Eos % (Auto) 2.3 (0-4) % Baso % (Auto) 0.7 (0-2) % Lymph # (Auto) 6.1 H (1.2-4.9) X10*3/uL [place] # (Auto) 1.3 H (0.1-1.2) X10*3/uL Eos # (Auto) 0.4 (0.0-0.4) X10*3/uL Baso # (Auto) 0.1 (0.0-0.2) X10*3/uL Abs Immat Gran (auto) 0.24 H (0.00-0.03) X10*3/uL Absolute Neuts (auto) 7.3 (2.0-8.3) x10*3/uL Absolute Nucleated RBC 0.000 (0.0-0.012) X10*3/uL Nucleated RBC % (auto) 0.0 (0.0-0.2) /100WBC Smear Tech's Comments VERIFIED Sodium 141 (135-145) mmol/L Potassium 4.4 (3.3-5.1) mmol/L Chloride 105 (96-108) mmol/L Carbon Dioxide 27 (22-29) mmol/L Anion Gap 13 (12-20) BUN 14 (9-16) mg/dL Creatinine 0.76 (0.5-1.4) mg/dL Estim Creat Clear Calc 75.6 Estimated GFR > 60 Random Glucose 116 H (60-115) mg/dL Calcium 9.5 (8.4-10.2) mg/dL Total Bilirubin 0.1 (0.0-1.0) mg/dL Direct Bilirubin < 0.2 (0.0-0.5) mg/dL AST 15 (5-31) U/L ALT 14 (0-31) U/L Alkaline Phosphatase 78 (39-117) U/L Total Protein 7.1 (6.5-8.0) g/dL Albumin 4.1 (3.5-5.0) g/dL Lipase 31 (8-78) U/L Urine Color Yellow Urine Appearance Clear Urine pH 7.0 (5.0-9.0) Ur Specific [place] <= 1.005 (1.005-1.025) Urine Protein Negative (Neg-Trace) mg/dL Urine Glucose (UA) Negative (Negative) mg/dL Urine Ketones Negative (Negative) mg/dL Urine Blood Negative (Negative) Urine Nitrite Negative (Negative) Ur Leukocyte Esterase Negative (Negative) Medications Administered Discontinued Medications Generic Name Dose Route Start Last Admin Trade Name Freq PRN Reason Stop Dose Admin Sodium Chloride 1,000 mls @ 999 mls/hr 08/09/23 02:46 08/09/23 04:54 Ns IV 08/09/23 03:46 Infused .Q1H1M ONE Infusion Iohexol 85 ml 08/09/23 03:17 08/09/23 03:18 Iohexol 350 Mg/Ml 100 Ml Infus..Btl IV 08/09/23 03:18 85 ml ONCE ONE Administration Morphine Sulfate 4 mg 08/09/23 02:46 08/09/23 02:57 Morphine Sulfate 4 Mg/Ml Cartridge IVPUSH 08/09/23 02:47 4 mg ONCE ONE Administration Protocol Ondansetron HCl 4 mg 08/09/23 02:46 08/09/23 02:57 Ondansetron Hcl 4 Mg/2 Ml Vial IVPUSH 08/09/23 02:47 4 mg ONCE ONE Administration Discharge Plan Discharge Clinical Impression: Abdominal pain Patient Disposition: Home, Self-Care Instructions: Abdominal Pain (ED) Additional Instructions: Cause of abdominal pain likely from the bowels CT scan did not show any acute Take Bentyl pain medication 1 every 8 hours as needed Prescriptions: New dicyclomine 20 mg tablet 20 mg PO TID PRN (Reason: abdominal pain) Qty: 20 0RF No Action eszopiclone [Lunesta] 3 mg tablet 3 mg PO BEDTIME Qty: 30 0RF meclizine 25 mg tablet 25 mg PO DAILY Qty: 90 1RF benzonatate 200 mg capsule 200 mg PO TID 5 Days Qty: 15 0RF cholecalciferol (vitamin D3) 25 mcg (1,000 unit) capsule 25 mcg PO DAILY ascorbate calcium (vitamin C) 500 mg tablet 1 g PO Q6H zinc 50 mg tablet 50 mg PO DAILY ferrous sulfate [Feosol] 325 mg (65 mg iron) tablet 325 mg PO DAILY vitamin B complex [B Complex-Vitamin B12] Tablet 1 tab PO DAILY Qty: 20 0RF (DME) GROWTH STRENGTH RECOVERY 0 .Route .MEDSUPPLY amitriptyline 10 mg tablet 20 mg PO BEDTIME 90 Days Qty: 180 0RF dexlansoprazole [Dexilant] 60 mg capsule,biphase delayed releas 60 mg PO DAILY Qty: 30 3RF Zyrtec 10 mg capsule 10 mg PO DAILY PRN (Reason: allergy symptoms) Qty: 30 2RF triamcinolone acetonide [Nasacort] 55 mcg aerosol,spray 2 spray intranasal DAILY Qty: 16.9 0RF Rx Instructions: administer into each nostril clonazepam 1 mg tablet 1 mg PO BID PRN (Reason: anxiety) Rx Instructions: Psychiatry and Becky juarez therapist azithromycin [Zithromax] 250 mg tablet See Rx Instructions PO .COMPLEX Qty: 6 0RF Rx Instructions: For 250 mg dose pack: take 500 mg today (day 1), then 250 mg for 4 days (days 2-5) PO albuterol sulfate [Ventolin HFA] 90 mcg/actuation HFA aerosol inhaler 2 puff inhalation Q6H PRN (Reason: shortness of breath or wheezing) Qty: 8.5 0RF prednisone 20 mg tablet 40 mg PO DAILY Qty: 10 0RF azithromycin 250 mg tablet See Rx Instructions PO .COMPLEX Qty: 6 0RF Rx Instructions: For 250 mg dose pack: take 500 mg today (day 1), then 250 mg for 4 days (days 2-5) PO benzonatate 100 mg capsule 100 mg PO TID PRN (Reason: cough) Qty: 10 0RF fluconazole 150 mg tablet 150 mg PO ONCE Qty: 1 0RF calcium carbonate 500 mg calcium (1,250 mg) capsule 1,000 mg PO DAILY Qty: 60 11RF Interventions: ED Discharge Assessment Last Done: 08/09/23 05:37 Discharge Date/Time: 08/09/23 05:46
[2023-08-09] MEDS: 0.9 % Sodium Chloride 1,000 ML 999 ML IV (02:55)
[2023-08-09] MEDS: ondansetron HCL 4 MG/2 ML VIAL IVPUSH (02:57)
[2023-08-09] MEDS: Morphine Sulfate 4 MG/ML CARTRIDGE IVPUSH (02:57)
[2023-08-09] MEDS: iohexoL 350 MG/ML 100 ML INFUS..BTL 85 ML IV (03:18)
[2023-08-09 03:54] VITALS: BP 141/63; PULSE 66; RESP 16; TEMP 36.5; O2SAT 97
[2023-08-09 04:57] VITALS: BP 130/64; PULSE 70; RESP 16; TEMP 36.5; O2SAT 97
== END 2023-08-09 05:46 | disposition home or self-care (01) ==
PROVIDERS: Emergency Provider Internal Medicine
DX: R10.12 Left upper quadrant pain (principal); R50.9 Fever, unspecified; R11.2 Nausea with vomiting, unspecified; Z79.899 Other long term (current) drug therapy
CPT/HCPCS: 36415; 74177; 80048; 80076; 81003; 83690; 85025; 96361; 96374; 96375; 99284; 99285; J2270; J2405; Q9967

== ENCOUNTER 2023-08-12 12:20 | Outpatient (AMB) | payer MEDICARE, MEDICAID, SELFPAY ==
[2023-08-12 12:27] VITALS: BP 118/82; PULSE 84; O2SAT 98; BMI 28.0
--- NOTE | 2023-08-12 12:27 | A.OFFPC_ITS ---
Vital Signs 08/12/23 12:27 Height 5 ft 4 in Weight 163 lb BMI 28.0 BP 118/82 Blood Pressure Location Lt brachial Position Sitting Pulse 84 Pulse Source Pulse Oximeter Temp Source Skin Pulse Oximetry (%) 98 Oxygen Delivery Method Room Air Intake Visit Reasons: nausea, possible GI issue Allergies Clindamycin HCl Allergy (Unknown, Verified 08/12/23 12:29) esophagus, trouble swallowing gabapentin Allergy (Unknown, Verified 08/12/23 12:29) Unknown ibuprofen Allergy (Unknown, Verified 08/12/23 12:) nausea metoclopramide [Reglan] Allergy (Unknown, Verified 08/12/23 12:) jittery NSAIDS (Non-Steroidal Anti-Inflamma [NSAIDS (NON-STEROIDAL ANTI-INFLAMMA] Allergy (Unknown, Verified 08/12/23 12:) STOMACH UPSET oxycodone [OXYCODONE] Allergy (Unknown, Verified 08/12/23 12:29) palpitations, hyper penicillin V Allergy (Unknown, Verified 08/12/23 12:29) rash ?, hives Penicillins Allergy (Unknown, Verified 08/12/23 12:29) HIVES pseudoephedrine [Sudafed] Allergy (Unknown, Verified 08/12/23 12:) Unknown tramadol [TRAMADOL] Allergy (Unknown, Verified 08/12/23 12:) palpitations, hyper vilazodone [Viibryd] Allergy (Unknown, Verified 08/12/23 12:29) dry mouth and tremors zolpidem [Ambien] Allergy (Unknown, Verified 08/12/23 12:29) Unknown bupropion [BUPROPION] Adverse Reaction (Intermediate, Verified 08/12/23 12:29) HTN, BLURRY VISION levofloxacin Adverse Reaction (Unknown, Verified 08/12/23 12:29) weakness, nausea/vomiting Medication List - Last Reconciled 08/12/23 by April Vizcaino, albuterol sulfate 90 mcg/actuation (Ventolin HFA) 2 puffs inhalation Q6H PRN amitriptyline 20 mg (2 x 10 mg) PO BEDTIME 90 days ascorbate calcium (vitamin C) 1 g PO Q6H benzonatate 200 mg PO TID 5 days benzonatate 100 mg PO TID PRN calcium carbonate 1,000 mg (2 x 500 mg calcium (1,250 mg)) PO DAILY cetirizine (Zyrtec) 10 mg PO DAILY PRN cholecalciferol (vitamin D3) 25 mcg PO DAILY clonazepam 1 mg PO BID PRN dexlansoprazole (Dexilant) 60 mg PO DAILY dicyclomine 20 mg PO TID PRN eszopiclone (Lunesta) 3 mg PO BEDTIME ferrous sulfate (Feosol) 325 mg PO DAILY fluconazole 150 mg PO ONCE [GROWTH STRENGTH RECOVERY ] meclizine 25 mg PO DAILY prednisone 40 mg (2 x 20 mg) PO DAILY triamcinolone acetonide (Nasacort) 2 sprays intranasal DAILY vitamin B complex (B Complex-Vitamin B12 tablet) 1 tab PO DAILY zinc 50 mg PO DAILY Tobacco use date assessed: 07/26/23 Dental Screening Dental Screen Date: 08/12/23 Did you have a dental visit in the last 12 months?: Yes Did you have a dental problem in the last 6 months where you did not have access to dental care?: No Was dental information given to patient?: Patient has dentist HPI nausea, possible GI issue HPI Details 53-year-old female recently seen having history of GERD migraine hypercholesterolemia recurrent major depression coming in for follow-up. There was a concern about the recurrent respiratory infection and was referred to Pulmonary. Review of the notes ER visit July 2022 complaining of left upper abdomen with fever had vomiting and diarrhea. August 02 noted urgent visit for cough bronchitis diagnosis with prednisone Z-Barrera given PFT done no obstructive ventilatory defect no significant response to bronchodilator. Severe decrease in maximum voluntary ventilation suggesting possibility of deconditioning. pain is epigastric PFSH Medical History Palpitation SARS-CoV-2 positive Generalized anxiety disorder Allergy to vaccine Low back pain Gallbladder polyp Closed left clavicular fracture History of miscarriage Temporal lobe epilepsy Hypercholesterolemia Fibromyalgia Migraine Vitamin D deficiency Bile salt-induced diarrhea Insomnia GERD (gastroesophageal reflux disease) Surgical History History of cholecystectomy Family History Father Cancer Mother CVD (cerebrovascular disease) Sister Breast cancer Family/Other Brain cancer Paternal Uncle Colon cancer Paternal Grandmother Stomach cancer Other Mental health disorder Social History Housing: Apartment Alcohol intake: never Patient Tobacco Use Status: Former Tobacco user Tobacco use type: Cigarette Years Smoked: 1 pack per week e-Cigarette/Vaping Use: Never Used Second Hand Smoke Exposure: No service: No Current occupational status: unemployed Gender identity: Female Cognitive needs: No Hearing needs: No Vision needs: Yes Questionnaire Thrive Questionnaire Date Thrive assessed: 12/11/22 AUDIT C Alcohol Use Questionnaire (AUDIT-C) 1. How often do you have a drink containing alcohol?: Never 2. How many drinks containing alcohol do you have on a typical day when you are drinking?: 1 or 2 (none) 3. How often do you have six or more drinks on one occasion?: Never Total Score: 0 Score Reviewed/Action Taken: No MONY-7 AMB Questionnaire MONY-7 Date MONY - 7 assessed: 05/20/23 Source: Developed by Drs. Fady Paredes, Arlen Stewart, Abhi Morris and colleagues, with an educational carina from [employer]. Physical exam (Primary Care) Vital Signs: Last Vital Signs Pulse 84 08/12/23 12:27 BP 118/82 08/12/23 12:27 Pulse Ox 98 08/12/23 12:27 Oxygen Delivery Method Room Air 08/12/23 12:27 BMI result Body Mass Index 28.0 Tobacco/Smoking Status: Tobacco use Status Tobacco use date assessed 07/26/23 08/12/23 12:32 Patient Tobacco Use Status Former Tobacco user 08/12/23 12:32 Tobacco use type Cigarette 08/12/23 12:32 e-Cigarette/Vaping Use Never Used 08/12/23 12:32 Thrive Assessment: Date of Thrive Assessment Date Thrive assessed 12/11/22 08/12/23 12:32 Const General: alert; No acute distress Eyes Conjunctivae: conjunctivae normal Resp Auscultation: clear to auscultation bilaterally Cardio Rate: regular rate Rhythm: regular rhythm GI Inspection: Yes normal to inspection Extrem General: Yes normal to inspection and No edema Assessment and Plan Assessment & Plan (1) Recurrent respiratory infection: Code(s): J98.8 - Other specified respiratory disorders Plan: Patient will be seeing the pulmonary this week. PFT done no obstructive or restrictive. (2) Generalized anxiety disorder: Comment: Panic disorder conversion schizotypal personality disorder depression Dr. Hector Bhandari [phone] [facility] Code(s): F41.1 - Generalized anxiety disorder Plan: Continue with medication (3) Hypercholesterolemia: Code(s): E78.00 - Pure hypercholesterolemia, unspecified Plan: Avoid fried foods, chicken skin, eggs, butter margarine, pastries and meat. Be it pork or beef they have a lot of cholesterol LDL goal of less than 130 and triglyceride of less than 150. (4) GERD (gastroesophageal reflux disease): Code(s): K21.9 - Gastro-esophageal reflux disease without esophagitis Plan: Avoid the foods that causes that usually spicy foods, tomato products, juices, coffee, soda and foods that your sensitive to. After eating do not lie down, allow 3-4 hours before in lie down. And keep the head of bed above 30 degrees to avoid the acid from going up. (5) Atherosclerosis of abdominal aorta: Code(s): I70.0 - Atherosclerosis of aorta Plan: dicsussed about cholesterol lowering - state eating better and decline med on meds Orders: Orders Lipid Panel 3 Months E78.00 - Pure hypercholesterolemia, unspecified Comprehensive Met. Panel 3 Months E78.00 - Pure hypercholesterolemia, unspecified Complete Blood Count Auto Diff 3 Months E78.00 - Pure hypercholesterolemia, unspecified Hemoglobin A1c 3 Months E78.00 - Pure hypercholesterolemia, unspecified Medications: New simvastatin 5 mg PO BEDTIME 30 tabs 4RF E78.00 - Pure hypercholesterolemia, unspecified ondansetron 8 mg PO Q12H PRN 14 tabs 0RF nausea and vomiting E78.00 - Pure hypercholesterolemia, unspecified Coding Level of Care Code Est Pt Level 4 (24453) Diagnoses Recurrent respiratory infection J98.8 Generalized anxiety disorder F41.1 Hypercholesterolemia E78.00 GERD (gastroesophageal reflux disease) K21.9 Atherosclerosis of abdominal aorta I70.0
== END 2023-08-12 13:04 | disposition home or self-care (01) ==
PROVIDERS: Visit Provider Internal Medicine
DX: J98.8 Other specified respiratory disorders (principal); F41.1 Generalized anxiety disorder; K21.9 Gastro-esophageal reflux disease without esophagitis; I70.0 Atherosclerosis of aorta
CPT/HCPCS: 99214

== ENCOUNTER 2023-08-16 08:01 | Outpatient (AMB) | payer MEDICARE, MEDICAID, SELFPAY ==
[2023-08-16 08:07] VITALS: BP 118/70; PULSE 76; TEMP 36.6; O2SAT 97; BMI 28.5
--- NOTE | 2023-08-16 08:07 | MHC.OFFWIV ---
Intake Vital Signs 08/16/23 08:07 Height 5 ft 4 in Weight 166 lb BMI 28.5 BP 118/70 Blood Pressure Location Rt brachial Position Sitting Pulse 76 Pulse Source Pulse Oximeter Temp 97.9 F Temp Source Temporal Artery Scan Pulse Oximetry (%) 97 Oxygen Delivery Method Room Air Intake Visit Reasons: EP Fell/Injured Tailbone Intake Note: pt is here for c/o injured tailbone, fell of bed this morning and fell right on tailbone Patient Tobacco Use Status: Former Tobacco user Allergies Clindamycin HCl Allergy (Unknown, Verified 08/16/23 08:08) esophagus, trouble swallowing gabapentin Allergy (Unknown, Verified 08/16/23 08:08) Unknown ibuprofen Allergy (Unknown, Verified 08/16/23 08:08) nausea metoclopramide [Reglan] Allergy (Unknown, Verified 08/16/23 08:08) jittery NSAIDS (Non-Steroidal Anti-Inflamma [NSAIDS (NON-STEROIDAL ANTI-INFLAMMA] Allergy (Unknown, Verified 08/16/23 08:08) STOMACH UPSET oxycodone [OXYCODONE] Allergy (Unknown, Verified 08/16/23 08:08) palpitations, hyper penicillin V Allergy (Unknown, Verified 08/16/23 08:08) rash ?, hives Penicillins Allergy (Unknown, Verified 08/16/23 08:08) HIVES pseudoephedrine [Sudafed] Allergy (Unknown, Verified 08/16/23 08:08) Unknown tramadol [TRAMADOL] Allergy (Unknown, Verified 08/16/23 08:08) palpitations, hyper vilazodone [Viibryd] Allergy (Unknown, Verified 08/16/23 08:08) dry mouth and tremors zolpidem [Ambien] Allergy (Unknown, Verified 08/16/23 08:08) Unknown bupropion [BUPROPION] Adverse Reaction (Intermediate, Verified 08/16/23 08:08) HTN, BLURRY VISION levofloxacin Adverse Reaction (Unknown, Verified 08/16/23 08:08) weakness, nausea/vomiting Do you need a note to return to daycare/school/sports/work: Yes HPI HPI Comments History of Present Illness Details This is a 53-year-old female presenting for evaluation of pain in her tailbone. Patient states that she fell out of bed 2 days ago and landed on her low back. Patient states that she had no pain initially but has progressively developed an 8/10 aching pain in her tailbone that is worse when she sits down or walks. Patient is not taking any [id number] medication for treatment of her discomfort. Patient denies any radiation of pain into her extremities. [facility] Medical History Palpitation SARS-CoV-2 positive Generalized anxiety disorder Allergy to vaccine Low back pain Gallbladder polyp Closed left clavicular fracture History of miscarriage Temporal lobe epilepsy Hypercholesterolemia Fibromyalgia Migraine Vitamin D deficiency Bile salt-induced diarrhea Insomnia GERD (gastroesophageal reflux disease) Surgical History History of cholecystectomy Family History Father Cancer Mother CVD (cerebrovascular disease) Sister Breast cancer Family/Other Brain cancer Paternal Uncle Colon cancer Paternal Grandmother Stomach cancer Other Mental health disorder Social History Housing: Apartment Alcohol intake: never Patient Tobacco Use Status: Former Tobacco user Tobacco use type: Cigarette Years Smoked: 1 pack per week e-Cigarette/Vaping Use: Never Used Second Hand Smoke Exposure: No service: No Current occupational status: unemployed Gender identity: Female Cognitive needs: No Hearing needs: No Vision needs: Yes Review of Systems Const All systems reviewed & are unremarkable except as noted in HPI and below Reports as per HPI Musc Reports back pain (coccyx) and Reports joint swelling Skin/Breast Reports system reviewed and no additional complaints, except as documented Physical Exam Vital Signs: Last Vital Signs Temp 97.9 F 08/16/23 08:07 Pulse 76 08/16/23 08:07 BP 118/70 08/16/23 08:07 Pulse Ox 97 08/16/23 08:07 Oxygen Delivery Method Room Air 08/16/23 08:07 BMI result Body Mass Index 28.5 Const General: cooperative, healthy appearing, no acute distress and well developed Back/Spine/Pelvis Thoracic/Lumbar Spine: thoracic and lumbar spine normal to inspection Sacroiliac joints: on the right nontender and on the left nontender Sacrum: no ecchymosis, no erythema, no swelling and no tenderness Coccyx: no swelling and Coccyx tenderness present on direct palpation Skin General skin exam: no rashes or lesions noted Trauma: no lacerations or abrasions Wounds: no wounds Extrem Other: Patient ambulating independently without limitation Psych Appearance: grossly normal Mental Status: mental status grossly normal Assessment & Plan Assessment & Plan (1) Coccygeal pain: Code(s): M53.3 - Sacrococcygeal disorders, not elsewhere classified Plan Patient seen and evaluated. She is in no acute distress. There is mild tenderness to palpation of the coccyx and the soft tissue to the left of the coccyx; no edema, erythema, ecchymosis or trauma noted. Patient states that she is allergic to all NSAIDs and therefore will be given a 5 day course of prednisone. Given her history, coupled with her examination I do not feel that any imaging is warranted at this time. Medications: New prednisone 40 mg (2 x 20 mg) PO DAILY 10 tabs 0RF Coding Level of Care Code Est Pt Level 3 (37585) Diagnoses Coccygeal pain M53.3 Time Spent (min) 20
== END 2023-08-16 08:34 | disposition home or self-care (01) ==
PROVIDERS: Visit Provider Physician Assistant
DX: M53.3 Sacrococcygeal disorders, not elsewhere classified (principal)
CPT/HCPCS: 99213

== ENCOUNTER 2023-09-06 11:26 | Outpatient (AMB) | payer MEDICARE, MEDICAID, SELFPAY ==
--- NOTE | 2023-09-06 11:27 | A.OFFPC_ITS ---
Vital Signs 09/06/23 11:41 09/06/23 11:51 Height 5 ft 4 in Weight 167 lb 2 oz BMI 28.7 BP 134/84 Blood Pressure Location Lt brachial Position Sitting Pulse 120 H 84 Pulse Source Pulse Oximeter Auscultation Pulse Oximetry (%) 96 Oxygen Delivery Method Room Air Intake Visit Reasons: pe/allergic rhinitis Intake Note: Patient is here today for a physical. Pt requesting refills on the following: trazodone, Fluconazole and Metclopramide Reserve Officer Required: No Accompanied by: Daughter Allergies Clindamycin HCl Allergy (Unknown, Verified 09/06/23 11:42) esophagus, trouble swallowing gabapentin Allergy (Unknown, Verified 09/06/23 11:42) Unknown ibuprofen Allergy (Unknown, Verified 09/06/23 11:42) nausea metoclopramide [Reglan] Allergy (Unknown, Verified 09/06/23 11:42) jittery NSAIDS (Non-Steroidal Anti-Inflamma [NSAIDS (NON-STEROIDAL ANTI-INFLAMMA] Aller gy (Unknown, Verified 09/06/23 11:42) STOMACH UPSET oxycodone [OXYCODONE] Allergy (Unknown, Verified 09/06/23 11:42) palpitations, hyper penicillin V Allergy (Unknown, Verified 09/06/23 11:42) rash ?, hives Penicillins Allergy (Unknown, Verified 09/06/23 11:42) HIVES pseudoephedrine [Sudafed] Allergy (Unknown, Verified 09/06/23 11:42) Unknown tramadol [TRAMADOL] Allergy (Unknown, Verified 09/06/23 11:42) palpitations, hyper vilazodone [Viibryd] Allergy (Unknown, Verified 09/06/23 11:42) dry mouth and tremors zolpidem [Ambien] Allergy (Unknown, Verified 09/06/23 11:42) Unknown bupropion [BUPROPION] Adverse Reaction (Intermediate, Verified 09/06/23 11:42) HTN, BLURRY VISION quetiapine [From Seroquel] Adverse Reaction (Intermediate, Unverified 09/06/23 11:42) patient states levofloxacin Adverse Reaction (Unknown, Verified 09/06/23 11:42) weakness, nausea/vomiting Medication List - Last Reconciled 09/06/23 by April Vizcaino MD albuterol sulfate 90 mcg/actuation (Ventolin HFA) 2 puffs inhalation Q6H PRN amitriptyline 20 mg (2 x 10 mg) PO BEDTIME 90 days amoxicillin-pot clavulanate 875-125 mg 1 tab PO BID ascorbate calcium (vitamin C) 1 g PO Q6H calcium carbonate 1,000 mg (2 x 500 mg calcium (1,250 mg)) PO DAILY cetirizine (Zyrtec) 10 mg PO DAILY PRN cholecalciferol (vitamin D3) 25 mcg PO DAILY clonazepam 1 mg PO BID PRN cyclobenzaprine 10 mg PO BEDTIME dexlansoprazole (Dexilant) 60 mg PO DAILY diclofenac sodium 1% topical ferrous sulfate (Feosol) 325 mg PO DAILY [GROWTH STRENGTH RECOVERY ] metoclopramide HCl 10 mg PO Q6H PRN prednisone 40 mg (2 x 20 mg) PO DAILY simvastatin 5 mg PO BEDTIME trazodone 50 mg PO BEDTIME PRN triamcinolone acetonide (Nasacort) 2 sprays intranasal DAILY vitamin B complex (B Complex-Vitamin B12 tablet) 1 tab PO DAILY zinc 50 mg PO DAILY Tobacco use date assessed: 07/26/23 HPI pe/allergic rhinitis HPI0 Details 53-year-old overweight female with GERD hypercholesterolemia generalized anxiety disorder coming in for physical exam. Last seen in July 2023. Had recurrent respiratory tract infection and was referred to Pulmonary. Patient's mammogram is due. Recently had a fall injured tailbone was given prednisone. Rib patient also had a recent CT scan done July 2023 for abdominal pain incidentally showing moderate atherosclerosis on the aorta. GI 09/16/2023, Pulmo 10/15/2023. nausea, cough,clear, has a cat at home, BM takes has intermittent diarrhea- irritable bowel syndrome PFSH Medical History Palpitation SARS-CoV-2 positive Generalized anxiety disorder Allergy to vaccine Low back pain Gallbladder polyp Closed left clavicular fracture History of miscarriage Temporal lobe epilepsy Hypercholesterolemia Fibromyalgia Migraine Vitamin D deficiency Bile salt-induced diarrhea Insomnia GERD (gastroesophageal reflux disease) Surgical History History of cholecystectomy Family History Father Cancer Mother CVD (cerebrovascular disease) Sister Breast cancer Family/Other Brain cancer Paternal Uncle Colon cancer Paternal Grandmother Stomach cancer Other Mental health disorder Social History Housing: Apartment Alcohol intake: never Patient Tobacco Use Status: Former Tobacco user Tobacco use type: Cigarette Years Smoked: 1 pack per week e-Cigarette/Vaping Use: Never Used Second Hand Smoke Exposure: No service: No Current occupational status: unemployed Gender identity: Female Cognitive needs: No Hearing needs: No Vision needs: Yes Questionnaire Thrive Questionnaire Date Thrive assessed: 12/11/22 MONY-7 AMB Questionnaire MONY-7 Date MONY - 7 assessed: 05/20/23 Source: Developed by Drs. Fady Paredes, Arlen Stewart, Abhi Morris and colleagues, with an educational carina from [employer]. Review of Systems Const Denies poor appetite and Denies weakness Eyes Denies no additional complaints ENT Reports Normal hearing present, Denies dizziness, Denies nasal congestion, Denies tinnitus and Denies sore throat Card Denies chest pain, Denies syncope, Denies rapid heart rate and Denies dyspnea Resp Denies cough and Denies dyspnea GI Denies change in stool character, Reports constipation, Denies diarrhea, Denies nausea and Denies vomiting Denies urinary frequency, Denies difficulty voiding and Denies dysuria Neuro Reports Normal hearing present, Denies confusion, Denies dizziness, Denies syncope and Denies weakness Psych Denies confusion Physical exam (Primary Care) Vital Signs: Last Vital Signs Pulse 120 H 09/06/23 11:41 BP 134/84 09/06/23 11:41 Pulse Ox 96 09/06/23 11:41 Oxygen Delivery Method Room Air 09/06/23 11:41 BMI result Body Mass Index 28.7 Tobacco/Smoking Status: Tobacco use Status Tobacco use date assessed 07/26/23 09/06/23 11:28 Patient Tobacco Use Status Former Tobacco user 09/06/23 11:28 Tobacco use type Cigarette 09/06/23 11:28 e-Cigarette/Vaping Use Never Used 09/06/23 11:28 Thrive Assessment: Date of Thrive Assessment Date Thrive assessed 12/11/22 09/06/23 11:28 Const General: No confusion Orientation/consciousness: No confusion HENMT Head: Yes normocephalic Ears: external ears normal and TM's normal bilaterally Face and sinus: Yes normal facial exam Mouth: moist mucous membranes Throat: Yes tonsils normal Eyes Conjunctivae: conjunctivae normal Pupils: Equal, round and reactive pupils present and Pupil accommodation reflex normal Direct Ophthalmoscopy: normal light reflex Neck Neck: No lymphadenopathy Thyroid: Thyroid normal Chest Chest palpation & inspection: normal inspection of the chest Resp Effort & Inspection: normal respiratory effort and no audible wheezes Auscultation: clear to auscultation bilaterally, no crackles, no wheezes and lung sounds not diminished Cardio Rate: regular rate Rhythm: regular rhythm Peripheral pulses: radial pulses present and dorsalis pedis present GI Palpation (GI): no masses Auscultation: normal bowel sounds and normoactive bowel sounds Rectal Exam - Female: deferred Skin General skin exam: no rashes or lesions noted Rashes: no rashes Neuro General: No confusion Cranial nerves: Yes Equal, round and reactive pupils present and Yes Normal hearing present Cognition (Neuro): normal cognition Gait exam (Neuro): Normal gait present Motor exam (neuro): 5/5 motor strength present throughout Deep tendon reflexes (DTR's): Right brachioradialis reflex intensity grade: 2+, Left brachioradialis reflex intensity grade: 2+, Right patellar reflex intensity grade: 2+ and Left patellar reflex intensity grade: 2+ Extrem General: No edema Results AMB Hemoglobin A1c AMB Hemoglobin A1c 5.5 % Last Edit by HANS Russ on 09/06/23 11:47 Assessment and Plan Assessment & Plan (1) Annual physical exam: Code(s): Z00.00 - Encounter for general adult medical examination without abnormal findings (2) Atherosclerosis of abdominal aorta: Code(s): I70.0 - Atherosclerosis of aorta Plan: Control the cholesterol, weight, blood pressure (3) Generalized anxiety disorder: Comment: Panic disorder conversion schizotypal personality disorder depression Dr. Hector Bhandari [phone] [facility] Code(s): F41.1 - Generalized anxiety disorder Plan: Continue with counseling and therapy (4) GERD (gastroesophageal reflux disease): Code(s): K21.9 - Gastro-esophageal reflux disease without esophagitis Plan: Avoid the foods that causes that usually spicy foods, tomato products, juices, coffee, soda and foods that your sensitive to. After eating do not lie down, allow 3-4 hours before in lie down. And keep the head of bed above 30 degrees to avoid the acid from going up. (5) Hypercholesterolemia: Code(s): E78.00 - Pure hypercholesterolemia, unspecified Plan: Avoid fried foods, chicken skin, eggs, butter margarine, pastries and meat. Be it pork or beef they have a lot of cholesterol LDL goal of less than 100 preferably less than 70 and triglyceride of less than 150 patient on simvastatin 5 mg once a day (6) Insomnia: Code(s): G47.00 - Insomnia, unspecified Plan: Continue with medication (7) Allergic rhinitis: Code(s): J30.9 - Allergic rhinitis, unspecified Qualifiers: Allergic rhinitis trigger: other Allergic rhinitis seasonality: unspecified Qualified Code(s): J30.89 - Other allergic rhinitis Orders: Orders AMB Hemoglobin A1c Today Z13.1 - Encounter for screening for diabetes mellitus Medications: New albuterol sulfate 2.5 mg (3 mL) inhalation QID PRN 180 mL 0RF shortness of breath or wheezing J20.9 - Acute bronchitis, unspecified nebulizers (Aeroneb Go Nebulizer) As directed 1 ea 0RF J20.9 - Acute bronchitis, unspecified montelukast 10 mg PO DAILY 30 tabs 0RF J30.9 - Allergic rhinitis, unspecified Refilled trazodone 50 mg PO BEDTIME PRN 90 tabs 0RF sleep G47.00 - Insomnia, unspecified Coding Level of Care Code Est Pt Prev Care 40-64y(27696) Diagnoses Annual physical exam Z00.00 Atherosclerosis of abdominal aorta I70.0 Generalized anxiety disorder F41.1 GERD (gastroesophageal reflux disease) K21.9 Hypercholesterolemia E78.00 Insomnia G47.00 Allergic rhinitis due to other allergic trigger, unspecified seasonality J30.89 Allergic rhinitis trigger: other Allergic rhinitis seasonality: unspecified
[2023-09-06 11:41] VITALS: BP 134/84; PULSE 120; O2SAT 96; BMI 28.7
[2023-09-06 11:51] VITALS: PULSE 84
== END 2023-09-06 12:28 | disposition home or self-care (01) ==
PROVIDERS: PCP Internal Medicine; Visit Provider Internal Medicine
DX: Z00.00 Encounter for general adult medical examination without abnormal findings (principal); I70.0 Atherosclerosis of aorta; F41.1 Generalized anxiety disorder; K21.9 Gastro-esophageal reflux disease without esophagitis; E78.00 Pure hypercholesterolemia, unspecified; G47.00 Insomnia, unspecified; J30.89 Other allergic rhinitis; Z13.1 Encounter for screening for diabetes mellitus
CPT/HCPCS: 83036; 99396

== ENCOUNTER 2023-09-09 21:22 | Emergency (ER) | payer MEDICARE, MEDICAID, SELFPAY ==
--- NOTE | ~2023-09-09 | XR_ITS ---
EXAMINATION: XR SACRUM AND COCCYX CLINICAL INFORMATION: Fall COMPARISON: Multiple priors, including 08/17/2019 TECHNIQUE: 2 views of the sacrum and 2 views of the coccyx were obtained. FINDINGS: Sacroiliac joints appear intact. There is slight contour deformity of the coccyx, suggesting sequelae of healed fracture when compared to 08/17/2019. Included portions of the bony pelvis appear intact. XR/XR sacrum coccyx min 2V IMPRESSION: Slight contour deformity of the coccyx, suggesting sequelae of healed fracture when compared to 08/17/2019.
[2023-09-09 21:30] VITALS: BP 140/90; BP 154/87; PULSE 86; PULSE 88; RESP 20; TEMP 37.1; O2SAT 96; O2SAT 97; BMI 31.4
--- NOTE | 2023-09-09 21:56 | ED_ITS ---
HPI - Weakness General Chief complaint: General Medical Stated complaint: FAINTING,NUSEA,VOMITING,ABD PAIN Time Seen by Provider: 09/09/23 21:47 Source: patient Mode of arrival: EMS Limitations: no limitations History of Present Illness HPI Narrative: 53 yo female with PMH of bronchitis, palpitations, depression, HLD, rhinitis, migraines, GERD seen here 08/09 for abdominal pain and fevers had normal CT scan she comes back with c/o epigastric pain and n/v/d x 3 days denies fevers, sick contacts, food exposures or antibiotics. She was so weak she fainted while standing yesterday and fell on her buttocks she thinks she broke her tailbone. She states the pain in her epigastric area is so bad. She has already had her gallbladder removed. MD Complaint: generalized weakness Onset (ago): day(s) (3) Duration: constant Location: generalized Migration: none Severity: moderate Quality: dull Relieving factors: rest Exacerbating factors: movement Context: other (GI illness of pain n/v/d.) Associated symptoms: loss of appetite and nausea/vomiting Related Data Home Medications Medication Instructions Recorded Confirmed ascorbate calcium (vitamin C) 500 1 g PO Q6H 10/21/20 09/06/23 mg tablet cholecalciferol (vitamin D3) 25 25 mcg PO DAILY 10/21/20 09/06/23 mcg (1,000 unit) capsule zinc 50 mg tablet 50 mg PO DAILY 10/21/20 09/06/23 ferrous sulfate 325 mg (65 mg 325 mg PO DAILY 07/25/21 09/06/23 iron) tablet (Feosol) GROWTH STRENGTH RECOVERY 05/20/23 09/06/23 clonazepam 1 mg tablet 1 mg PO BID PRN anxiety 07/26/23 09/06/23 amoxicillin 875 mg-potassium 1 tab PO BID 09/06/23 09/06/23 clavulanate 125 mg tablet cyclobenzaprine 10 mg tablet 10 mg PO BEDTIME 09/06/23 09/06/23 diclofenac sodium 1 % topical gel topical 09/06/23 09/06/23 metoclopramide HCl 10 mg tablet 10 mg PO Q6H PRN 09/06/23 09/06/23 Previous Rx's Medication Instructions Recorded calcium carbonate 500 mg calcium 1,000 mg (2 x 500 mg calcium 11/23/20 (1,250 mg) capsule (1,250 mg)) PO DAILY #60 caps vitamin B complex (B 1 tab PO DAILY #20 tabs 09/08/21 Complex-Vitamin B12 tablet) amitriptyline 10 mg tablet 20 mg (2 x 10 mg) PO BEDTIME 90 05/20/23 days #180 tabs cetirizine 10 mg capsule (Zyrtec) 10 mg PO DAILY PRN allergy 05/20/23 symptoms #30 caps dexlansoprazole 60 mg 60 mg PO DAILY #30 caps 05/20/23 capsule,biphase delayed release (Dexilant) triamcinolone acetonide 55 mcg 2 spray intranasal DAILY #16.9 mL 05/20/23 nasal spray aerosol (Nasacort) albuterol sulfate 90 mcg/actuation 2 puff inhalation Q6H PRN 07/26/23 aerosol inhaler (Ventolin HFA) shortness of breath or wheezing #8.5 grams prednisone 20 mg tablet 40 mg (2 x 20 mg) PO DAILY #10 tabs 08/02/23 simvastatin 5 mg tablet 5 mg PO BEDTIME #30 tabs 08/12/23 albuterol sulfate 2.5 mg/3 mL 2.5 mg (3 mL) inhalation QID PRN 09/06/23 (0.083 %) solution for nebulization shortness of breath or wheezing #180 mL montelukast 10 mg tablet 10 mg PO DAILY #30 tabs 09/06/23 nebulizers (Aeroneb Go Nebulizer) #1 ea 09/06/23 trazodone 50 mg tablet 50 mg PO BEDTIME PRN sleep #90 tabs 09/06/23 fluconazole 150 mg tablet 150 mg PO ONCE symptoms of yeast 09/09/23 infection #1 tab metoclopramide HCl 10 mg tablet 5 mg (1/2 x 10 mg) PO TID nausea 09/09/23 and vomiting 90 days #135 tabs ondansetron 4 mg disintegrating 4 mg PO Q8H PRN nausea and 09/10/23 tablet vomiting #20 tabs Allergies Allergy/AdvReac Type Severity Reaction Status Date / Time Clindamycin HCl Allergy Unknown esophagus, Verified 09/06/23 11:42 trouble swallowing gabapentin Allergy Unknown Unknown Verified 09/06/23 11:42 ibuprofen Allergy Unknown nausea Verified 09/06/23 11:42 metoclopramide [Reglan] Allergy Unknown jittery Verified 09/06/23 11:42 NSAIDS (Non-Steroidal Allergy Unknown STOMACH Verified 09/06/23 11:42 Anti-Inflamma UPSET [NSAIDS (NON-STEROIDAL ANTI-INFLAMMA] oxycodone [OXYCODONE] Allergy Unknown palpitations, Verified 09/06/23 11:42 hyper penicillin V Allergy Unknown rash ?, Verified 09/06/23 11:42 hives Penicillins Allergy Unknown HIVES Verified 09/06/23 11:42 pseudoephedrine [Sudafed] Allergy Unknown Unknown Verified 09/06/23 11:42 tramadol [TRAMADOL] Allergy Unknown palpitations, Verified 09/06/23 11:42 hyper vilazodone [Viibryd] Allergy Unknown dry mouth Verified 09/06/23 11:42 and tremors zolpidem [Ambien] Allergy Unknown Unknown Verified 09/06/23 11:42 bupropion [BUPROPION] AdvReac Intermediate HTN, Verified 09/06/23 11:42 BLURRY VISION quetiapine [From Seroquel] AdvReac Intermediate patient Unverified 09/06/23 11:42 states levofloxacin AdvReac Unknown weakness, Verified 09/06/23 11:42 nausea/vomiting Review of Systems 2 Review of Systems: Constitutional : No Weight loss, No Fever, No Chills, pos fatigue ENT/Mouth : No sore throat, No Rhinorrhea Eyes: No Swelling, No Redness Cardiovascular : No Chest Pain, No SOB, NoEdema Respiratory : No Cough, No Sputum, No Wheezing Gastrointestinal : Positive Nausea, Positive Vomiting, positive Diarrhea, positive abdominal Pain, No Hematochezia, No Melena Genitourinary : No Dysuria, No Urinary Frequency, No Hematuria, No Urgency Musculoskeletal : No joint pain, No Myalgias, No Joint Swelling Skin : No Skin Lesions, No rash Neuro : pos Weakness, No Numbness, No Dizziness, No Headache Psych : No Anxiety/Panic, No Depression Heme/Lymph: No Bruising, No Lymphadenopathy Endocrine : No Polyuria, No Polydipsia All other systems reviewed and are negative. [facility] Past Medical History Source: old records reviewed Medical History Palpitation SARS-CoV-2 positive Generalized anxiety disorder Allergy to vaccine Low back pain Gallbladder polyp Closed left clavicular fracture History of miscarriage Temporal lobe epilepsy Hypercholesterolemia Fibromyalgia Migraine Vitamin D deficiency Bile salt-induced diarrhea Insomnia GERD (gastroesophageal reflux disease) Surgical History History of cholecystectomy Family History Family History Father Cancer Mother CVD (cerebrovascular disease) Sister Breast cancer Family/Other Brain cancer Paternal Uncle Colon cancer Paternal Grandmother Stomach cancer Other Mental health disorder Social History Social History Housing: Apartment Alcohol intake: never Patient Tobacco Use Status: Former Tobacco user Tobacco use type: Cigarette Years Smoked: 1 pack per week e-Cigarette/Vaping Use: Never Used Second Hand Smoke Exposure: No service: No Current occupational status: unemployed Gender identity: Female Cognitive needs: No Hearing needs: No Vision needs: Yes Physical Exam 2 Vital Signs: Vital Signs: Last Vital Signs Temp 98.8 F 09/09/23 21:30 Pulse 85 09/09/23 23:58 Resp 19 09/09/23 23:58 BP 151/79 H 09/09/23 23:58 Pulse Ox 96 09/09/23 23:58 O2 Del Method Room Air 09/09/23 23:58 BMI result Body Mass Index 31.4 Appearance: Alert. Oriented X3. No acute distress. Looks not toxic Eyes: Pupils equal, round and reactive to light. ENT: Pharynx normal. Neck: Normal inspection. Neck supple. CVS: Normal heart rate and rhythm. Pulses normal. Respiratory: No respiratory distress. Breath sounds normal. Abdomen: Soft and mild ttp no rebound Skin: Skin warm and dry. Normal skin color. Normal skin turgor. Extremities: No lower extremity edema. No calf ttp Neuro: Oriented X 3. No motor deficit. No sensory deficit. Medications Administered Discontinued Medications Generic Name Dose Route Start Last Admin Trade Name Freq PRN Reason Stop Dose Admin Calcium Carbonate 750 mg 09/09/23 23:49 09/10/23 00:05 Calcium Carbonate 750 Mg Tab.Chew PO 09/09/23 23:50 750 mg ONCE ONE Administration Droperidol 1.25 mg 09/09/23 22:16 09/09/23 22:36 Droperidol 5 Mg/2 Ml Vial IVPUSH 09/09/23 22:17 1.25 mg ONCE ONE Administration Morphine Sulfate 4 mg 09/09/23 22:16 09/09/23 22:36 Morphine Sulfate 4 Mg/Ml Cartridge IVPUSH 09/09/23 22:17 4 mg ONCE ONE Administration Protocol Medical Decision Making Medical Decision Making [place] Narrative: 53 yo female with PMH of bronchitis, palpitations, depression, HLD, rhinitis, migraines, GERD seen here 08/09 for abdominal pain and fevers had normal CT scan, prior GB removal here with c/o epigastric pain n/v/d was so weak and dehydrated syncopized and landed on her tailbone (no headstrike not on thinners) she comes in due to the pain and nausea - she is not toxic appearing and has stable VS. At this time will obtain basic labs, hydrate, IV morphine for pain, nausea mediactions, coccyx film - will hold off CT scan as she just had one unless labs abnormal. Differential Diagnosis Differential Diagnoses: The differential diagnosis associated with the presentation includes gastritis, GERD, cyclical vomiting, pancreatitis Admission/Observation Consideration of admission/observation: Escalation of care including admission/observation considered work up negative stable for DC Lab Data [place] Lab Attestation statement: I reviewed the patient's lab results. labs normal chronic WBC count 09/09/23 22:03 09/09/23 22:03 Labs: Lab Results 09/09/23 09/09/23 Range/Units 22:03 22:28 WBC 14.9 H (4.8-10.8) X10*3/uL RBC 4.46 (4.20-5.50) X10*6/uL Hgb 14.0 (12.0-16.0) g/dl Hct 42.2 (37.0-47.0) % MCV 94.6 (80.0-98.0) fL MCH 31.4 (27.0-33.0) pg MCHC 33.2 (31.0-35.0) g/dl RDW 12.9 (11.0-16.0) % Plt Count 329 (160-400) X10*3/uL MPV 8.9 L (9.4-12.3) fL Immature Gran % (Auto) 1.1 H (0.0-0.4) % Neut % (Auto) 56.2 (45-73) % Lymph % (Auto) 33.1 (20-40) % [place] % (Auto) 7.3 (2-11) % Eos % (Auto) 1.8 (0-4) % Baso % (Auto) 0.5 (0-2) % Lymph # (Auto) 4.9 (1.2-4.9) X10*3/uL [place] # (Auto) 1.1 (0.1-1.2) X10*3/uL Eos # (Auto) 0.3 (0.0-0.4) X10*3/uL Baso # (Auto) 0.1 (0.0-0.2) X10*3/uL Abs Immat Gran (auto) 0.16 H (0.00-0.03) X10*3/uL Absolute Neuts (auto) 8.4 H (2.0-8.3) x10*3/uL Absolute Nucleated RBC 0.000 (0.0-0.012) X10*3/uL Nucleated RBC % (auto) 0.0 (0.0-0.2) /100WBC Sodium 141 (135-145) mmol/L Potassium 4.5 (3.3-5.1) mmol/L Chloride 103 (96-108) mmol/L Carbon Dioxide 27 (22-29) mmol/L Anion Gap 16 (12-20) BUN 15 (9-16) mg/dL Creatinine 0.79 (0.5-1.4) mg/dL Estim Creat Clear Calc 87.8 Estimated GFR > 60 Random Glucose 94 (60-115) mg/dL Calcium 9.8 (8.4-10.2) mg/dL Magnesium 2.1 (1.6-2.6) mg/dL Total Bilirubin 0.2 (0.0-1.0) mg/dL Direct Bilirubin < 0.2 (0.0-0.5) mg/dL AST 19 (5-31) U/L ALT 16 (0-31) U/L Alkaline Phosphatase 66 (39-117) U/L Troponin I High Sens < 2.7 (<3.5-17.0) ng/L Total Protein 6.5 (6.5-8.0) g/dL Albumin 3.9 (3.5-5.0) g/dL Lipase 19 (8-78) U/L Urine Color Yellow Urine Appearance Clear Urine pH 8.0 (5.0-9.0) Ur Specific [place] <= 1.005 (1.005-1.025) Urine Protein Negative (Neg-Trace) mg/dL Urine Glucose (UA) Negative (Negative) mg/dL Urine Ketones Negative (Negative) mg/dL Urine Blood Negative (Negative) Urine Nitrite Negative (Negative) Ur Leukocyte Esterase Negative (Negative) Independent Interpretation I performed an independent interpretation of an: EKG and Plain X-Ray (no new fx) Interpretation: Rate: 76 Rhythm: NSR [place]: normal Normal P waves. Normal ISMA[place]. Normal QRS complex. ST T wave : normal no [place] qTC: normal prior studies: no acute ischemia The study has been interpreted contemporaneously by me. . Radiology Impression Discussion of test interpretation with radiology: I have reviewed the radiologist's reading. External Record Review External record reviewed: Inpatient record Prescription Management I considered prescription management with: Other Discharge Plan Discharge Clinical Impression: Acute epigastric pain, Acute coccygeal pain Vomiting Qualifiers: Vomiting type: unspecified Nausea presence: with nausea Qualified Code(s): R 11.2 - Nausea with vomiting, unspecified Diarrhea Qualifiers: Diarrhea type: unspecified type Qualified Code(s): R19.7 - Diarrhea, unspecified Syncope Qualifiers: Syncope type: unspecified Qualified Code(s): R55 - Syncope and collapse Patient Disposition: Home, Self-Care Instructions: Syncope (ED), Acute Nausea and Vomiting (ED), Acute Diarrhea (ED) Additional Instructions: your labs were normal no dehydration, EKG normal, xray no acute fracture at this time stay hydrated, advance diet slowly and return for worsening symptoms take nausea medications and follow up with your doctor. Prescriptions: New ondansetron 4 mg tablet,disintegrating 4 mg PO Q8H PRN (Reason: nausea and vomiting) Qty: 20 0RF No Action fluconazole 150 mg tablet 150 mg PO ONCE Qty: 1 0RF metoclopramide HCl 10 mg tablet 5 mg PO TID 90 Days Qty: 135 0RF cholecalciferol (vitamin D3) 25 mcg (1,000 unit) capsule 25 mcg PO DAILY ascorbate calcium (vitamin C) 500 mg tablet 1 g PO Q6H zinc 50 mg tablet 50 mg PO DAILY ferrous sulfate [Feosol] 325 mg (65 mg iron) tablet 325 mg PO DAILY vitamin B complex [B Complex-Vitamin B12] Tablet 1 tab PO DAILY Qty: 20 0RF (DME) GROWTH STRENGTH RECOVERY 0 .Route .MEDSUPPLY amitriptyline 10 mg tablet 20 mg PO BEDTIME 90 Days Qty: 180 0RF dexlansoprazole [Dexilant] 60 mg capsule,biphase delayed releas 60 mg PO DAILY Qty: 30 3RF Zyrtec 10 mg capsule 10 mg PO DAILY PRN (Reason: allergy symptoms) Qty: 30 2RF triamcinolone acetonide [Nasacort] 55 mcg aerosol,spray 2 spray intranasal DAILY Qty: 16.9 0RF Rx Instructions: administer into each nostril clonazepam 1 mg tablet 1 mg PO BID PRN (Reason: anxiety) Rx Instructions: Psychiatry and Becky juarez therapist albuterol sulfate [Ventolin HFA] 90 mcg/actuation HFA aerosol inhaler 2 puff inhalation Q6H PRN (Reason: shortness of breath or wheezing) Qty: 8.5 0RF amoxicillin-pot clavulanate 875-125 mg tablet 1 tab PO BID cyclobenzaprine 10 mg tablet 10 mg PO BEDTIME diclofenac sodium 1 % gel topical metoclopramide HCl 10 mg tablet 10 mg PO Q6H PRN (DME) nebulizers [Aeroneb Go Nebulizer] Misc See Rx Instructions .Route Qty: 1 0RF Rx Instructions: As directed albuterol sulfate 2.5 mg /3 mL (0.083 %) solution for nebulization 2.5 mg inhalation QID PRN (Reason: shortness of breath or wheezing) Qty: 180 0RF montelukast 10 mg tablet 10 mg PO DAILY Qty: 30 0RF trazodone 50 mg tablet 50 mg PO BEDTIME PRN (Reason: sleep) Qty: 90 0RF prednisone 20 mg tablet 40 mg PO DAILY Qty: 10 0RF simvastatin 5 mg tablet 5 mg PO BEDTIME Qty: 30 4RF calcium carbonate 500 mg calcium (1,250 mg) capsule 1,000 mg PO DAILY Qty: 60 11RF
[2023-09-09 22:07] LABS: MANUAL DIFF FLAG NO
[2023-09-09 22:10] LABS: Basophils Absolute Auto 0.1 X10*3/uL (0.0-0.2); Basophils Percent Auto 0.5 % (0-2); Eosinophils Absolute Auto 0.3 X10*3/uL (0.0-0.4); Eosinophils Percent Auto 1.8 % (0-4); Hematocrit 42.2 % (37.0-47.0); Imm Gran Abs Auto 0.16 X10*3/uL (0.00-0.03); Imm Gran Pct Auto 1.1 % (0.0-0.4); Lymphocytes Absolute Auto 4.9 X10*3/uL (1.2-4.9); Lymphocytes Percent Auto 33.1 % (20-40); Mean Corpuscular HGB Conc 33.2 g/dl (31.0-35.0); Mean Corpuscular Hemoglobin 31.4 pg (27.0-33.0); Mean Corpuscular Volume 94.6 fL (80.0-98.0); Mean Platelet Volume 8.9 fL (9.4-12.3); Monocytes Absolute Auto 1.1 X10*3/uL (0.1-1.2); Monocytes Percent Auto 7.3 % (2-11); Neutrophils Absolute Auto 8.4 x10*3/uL (2.0-8.3); Neutrophils Percent Auto 56.2 % (45-73); Platelet Count 329 X10*3/uL (160-400); Red Blood Count 4.46 X10*6/uL (4.20-5.50); Red Cell Distribution Width 12.9 % (11.0-16.0); White Blood Count 14.9 X10*3/uL (4.8-10.8)
--- NOTE | 2023-09-09 22:16 | ECG_ITS ---
Test Reason : FALL Blood Pressure : / mmHG Vent. Rate : 076 BPM Atrial Rate : 076 BPM P-R Int : 140 ms QRS Dur : 086 ms QT Int : 374 ms P-R-T Axes : 060 038 047 degrees QTc Int : 420 ms Normal sinus rhythm Normal ECG When compared with ECG of 22-MAR-2023 09:16, No significant change was found Referred By: Jovana Mosley Electronically Signed By:JAMES REYES MD
[2023-09-09 22:22] LABS: Alanine Aminotransferase 16 U/L (0-31); Albumin Level 3.9 g/dL (3.5-5.0); Alkaline Phosphatase 66 U/L (39-117); Anion Gap 16 (12-20); Aspartate Amino Transferase 19 U/L (5-31); Bilirubin Direct < 0.2 mg/dL (0.0-0.5); Bilirubin Total 0.2 mg/dL (0.0-1.0); Blood Urea Nitrogen 15 mg/dL (9-16); Calcium 9.8 mg/dL (8.4-10.2); Carbon Dioxide 27 mmol/L (22-29); Chloride 103 mmol/L (96-108); Creatinine Clr Calc Pharmacy 87.8; Estimated Glomerular Filt Rate > 60; Glucose Random 94 mg/dL (60-115); Lipase 19 U/L (8-78); Potassium 4.5 mmol/L (3.3-5.1); Sodium 141 mmol/L (135-145); Total Protein 6.5 g/dL (6.5-8.0)
[2023-09-09] MEDS: droPERidol 5 MG/2 ML VIAL 1.25 MG IVPUSH (22:36)
[2023-09-09] MEDS: Morphine Sulfate 4 MG/ML CARTRIDGE IVPUSH (22:36)
[2023-09-09 22:52] LABS: Appearance Urine Clear; Color Urine Yellow; Glucose Urine UA Negative (Negative); Leukocyte Esterase Urine Negative (Negative); Nitrite Urine Negative (Negative); Specific Gravity - Urine <= 1.005 (1.005-1.025); Urine Blood Negative (Negative); Urine Ketones Negative (Negative); Urine Protein Negative (Neg-Trace)
[2023-09-09 23:13] LABS: Magnesium 2.1 mg/dL (1.6-2.6)
[2023-09-09 23:25] LABS: Troponin-I High Sensitivity < 2.7 ng/L (<3.5-17.0)
[2023-09-09 23:58] VITALS: BP 151/79; PULSE 85; RESP 19; O2SAT 96
[2023-09-10] MEDS: Calcium Carbonate 750 MG TAB.CHEW PO (00:05)
== END 2023-09-10 01:13 | disposition home or self-care (01) ==
PROVIDERS: Emergency Provider Emergency Medicine; PCP Internal Medicine
DX: R10.13 Epigastric pain (principal); R11.2 Nausea with vomiting, unspecified; R19.7 Diarrhea, unspecified; R55 Syncope and collapse; M53.3 Sacrococcygeal disorders, not elsewhere classified; R53.1 Weakness; E78.00 Pure hypercholesterolemia, unspecified; Z87.891 Personal history of nicotine dependence; Z79.899 Other long term (current) drug therapy
CPT/HCPCS: 36415; 72220; 80048; 80076; 81003; 83690; 83735; 84484; 85025; 93005; 96374; 96375; 99284; J1790; J2270

== ENCOUNTER 2023-09-17 08:50 | Outpatient (AMB) | payer MEDICARE, MEDICAID, SELFPAY ==
--- NOTE | 2023-09-17 09:27 | AM.OFFWIN_ITS ---
Intake Vital Signs 09/17/23 09:37 Height 5 ft 4 in Weight 167 lb BMI 28.7 BP 120/72 Blood Pressure Location Rt brachial Position Sitting Pulse 90 Pulse Source Pulse Oximeter Temp 98.0 F Temp Source Temporal Artery Scan Pulse Oximetry (%) 96 Intake Visit Reasons: EP, head congestion, cough (masked) Intake Note: pt is here for c/o head congestion and cough, sore throat Patient Tobacco Use Status: Former Tobacco user Allergies Clindamycin HCl Allergy (Unknown, Verified 09/17/23 10:11) esophagus, trouble swallowing gabapentin Allergy (Unknown, Verified 09/17/23 10:11) Unknown ibuprofen Allergy (Unknown, Verified 09/17/23 10:11) nausea metoclopramide [Reglan] Allergy (Unknown, Verified 09/17/23 10:11) jittery NSAIDS (Non-Steroidal Anti-Inflamma [NSAIDS (NON-STEROIDAL ANTI-INFLAMMA] Allergy (Unknown, Verified 09/17/23 10:11) STOMACH UPSET oxycodone [OXYCODONE] Allergy (Unknown, Verified 09/17/23 10:11) palpitations, hyper penicillin V Allergy (Unknown, Verified 09/17/23 10:11) rash ?, hives Penicillins Allergy (Unknown, Verified 09/17/23 10:11) HIVES pseudoephedrine [Sudafed] Allergy (Unknown, Verified 09/17/23 10:11) Unknown tramadol [TRAMADOL] Allergy (Unknown, Verified 09/17/23 10:11) palpitations, hyper vilazodone [Viibryd] Allergy (Unknown, Verified 09/17/23 10:11) dry mouth and tremors zolpidem [Ambien] Allergy (Unknown, Verified 09/17/23 10:11) Unknown bupropion [BUPROPION] Adverse Reaction (Intermediate, Verified 09/17/23 10:11) HTN, BLURRY VISION quetiapine [From Seroquel] Adverse Reaction (Intermediate, Verified 09/17/23 10:11) patient states levofloxacin Adverse Reaction (Unknown, Verified 09/17/23 10:11) weakness, nausea/vomiting Medication List - Last Reconciled 09/17/23 by Jaskaran Rodgers MD albuterol sulfate 2.5 mg (3 mL) inhalation QID PRN albuterol sulfate 90 mcg/actuation (Ventolin HFA) 2 puffs inhalation Q6H PRN amitriptyline 20 mg (2 x 10 mg) PO BEDTIME 90 days ascorbate calcium (vitamin C) 1 g PO Q6H calcium carbonate 1,000 mg (2 x 500 mg calcium (1,250 mg)) PO DAILY cetirizine (Zyrtec) 10 mg PO DAILY PRN cholecalciferol (vitamin D3) 25 mcg PO DAILY clonazepam 1 mg PO BID PRN cyclobenzaprine 10 mg PO BEDTIME dexlansoprazole (Dexilant) 60 mg PO DAILY diclofenac sodium 1% topical ferrous sulfate (Feosol) 325 mg PO DAILY fluconazole 150 mg PO ONCE [GROWTH STRENGTH RECOVERY ] metoclopramide HCl 5 mg (1/2 x 10 mg) PO TID 90 days metoclopramide HCl 10 mg PO Q6H PRN montelukast 10 mg PO DAILY nebulizers (Aeroneb Go Nebulizer) As directed ondansetron 4 mg PO Q8H PRN simvastatin 5 mg PO BEDTIME trazodone 50 mg PO BEDTIME PRN triamcinolone acetonide (Nasacort) 2 sprays intranasal DAILY vitamin B complex (B Complex-Vitamin B12 tablet) 1 tab PO DAILY zinc 50 mg PO DAILY Do you need a note to return to daycare/school/sports/work: Yes HPI EP, head congestion, cough (masked) HPI Details Patient presents for a sick visit. Reporting symptoms of sinus congestion, sore throat and difficulty swallowing. Low-grade fever. No family member is sick. No recent travel. Patient reports symptoms of malaise and fatigue. [facility] Medical History Palpitation SARS-CoV-2 positive Generalized anxiety disorder Allergy to vaccine Low back pain Gallbladder polyp Closed left clavicular fracture History of miscarriage Temporal lobe epilepsy Hypercholesterolemia Fibromyalgia Migraine Vitamin D deficiency Bile salt-induced diarrhea Insomnia GERD (gastroesophageal reflux disease) Surgical History History of cholecystectomy Family History Father Cancer Mother CVD (cerebrovascular disease) Sister Breast cancer Family/Other Brain cancer Paternal Uncle Colon cancer Paternal Grandmother Stomach cancer Other Mental health disorder Social History Housing: Apartment Alcohol intake: never Patient Tobacco Use Status: Former Tobacco user Tobacco use type: Cigarette Years Smoked: 1 pack per week e-Cigarette/Vaping Use: Never Used Second Hand Smoke Exposure: No service: No Current occupational status: unemployed Gender identity: Female Cognitive needs: No Hearing needs: No Vision needs: Yes Physical Exam Vital Signs: Last Vital Signs Temp 98.0 F 09/17/23 09:37 Pulse 90 09/17/23 09:37 BP 120/72 09/17/23 09:37 Pulse Ox 96 09/17/23 09:37 BMI result Body Mass Index 28.7 Const General: cooperative and healthy appearing Nutritional Appearance: well nourished Orientation/consciousness: patient oriented x3 Limitations: no limitations HEENT Head: Yes normal to inspection Eyes General: appearance normal, both eyes and all related structures Neck Neck: Yes normal visual inspection Chest Chest palpation & inspection: normal palpation of entire chest wall Resp Other: Scattered wheeze bilaterally. Effort & Inspection: normal respiratory effort Neuro General: patient oriented x3 Office Procedures Nebulizer Treatment Nebulizer Treatment [id number] RX initial, or Nebulizer Subsequent Treatment Office Meds albuterol sulfate 2.5 mg/3 mL (0.083 %) solution for nebulization Performing Provider: Jaskaran Rodgers MD Performing Location: [facility] Administered by: Penelope Betancourt RN on 09/17/23 10:31 Dose Route Admin Location Dispensed Lot Number Expiration Date NDC Recruiting Administrator 2.5 mg inhalation 3 mL [id number] 01/16/25 [id number] [employer] Results AMB Rapid Strep AMB Rapid Strep Negative Last Edit by Jose Nair CMA on 09/17/23 09 :42 Results Reviewed Results Reviewed: Laboratory Last Values Strep Scn Rapid Clinic Negative 09/17/23 09:42 Assessment & Plan Assessment & Plan (1) Acute bronchitis: Code(s): J20.9 - Acute bronchitis, unspecified Plan Patient responded well to the nebulizer treatment. Antibiotics, inhaler, prednisone and Tessalon Perles called in. If symptoms do not improve to follow- up here. Orders: Orders AMB Rapid Strep Screen Today Z13.9 - Encounter for screening, unspecified AMB Nebulizer Treatment Today J20.9 - Acute bronchitis, unspecified Coding Level of Care Code Est Pt Level 4 (91346) Diagnoses Acute bronchitis J20.9 CPT Codes Nebulizer Treatment - Nebulizer Treatment, initial or subsequent: [id number]- Nebulizer/MDI RX initial, or Nebulizer Subsequent Treatment ([id number])
[2023-09-17 09:37] VITALS: BP 120/72; PULSE 90; TEMP 36.7; O2SAT 96; BMI 28.7
== END 2023-09-17 10:35 | disposition home or self-care (01) ==
PROVIDERS: PCP Internal Medicine; Visit Provider Internal Medicine
DX: J20.9 Acute bronchitis, unspecified (principal); J02.9 Acute pharyngitis, unspecified
CPT/HCPCS: 87880; 94640; 99214; J7613

== ENCOUNTER 2023-09-20 08:02 | Outpatient (AMB) | payer MEDICARE, MEDICAID, SELFPAY ==
[2023-09-20 08:06] VITALS: BP 112/74; PULSE 92; TEMP 36.6; O2SAT 98; BMI 28.7
--- NOTE | 2023-09-20 08:06 | MHC.OFFWIV ---
Intake Vital Signs 09/20/23 08:06 Height 5 ft 4 in Weight 167 lb BMI 28.7 BP 112/74 Blood Pressure Location Lt brachial Position Sitting Pulse 92 Pulse Source Pulse Oximeter Temp 97.9 F Temp Source Temporal Artery Scan Pulse Oximetry (%) 98 Oxygen Delivery Method Room Air Intake Visit Reasons: EP tight chest/cough/masked Intake Note: pt is here for c/o cough and chest congestion, completed prednisone but still having a hard time breathing Patient Tobacco Use Status: Former Tobacco user Allergies Clindamycin HCl Allergy (Unknown, Verified 09/20/23 08:07) esophagus, trouble swallowing gabapentin Allergy (Unknown, Verified 09/20/23 08:07) Unknown ibuprofen Allergy (Unknown, Verified 09/20/23 08:07) nausea metoclopramide [Reglan] Allergy (Unknown, Verified 09/20/23 08:07) jittery NSAIDS (Non-Steroidal Anti-Inflamma [NSAIDS (NON-STEROIDAL ANTI-INFLAMMA] Allergy (Unknown, Verified 09/20/23 08:07) STOMACH UPSET oxycodone [OXYCODONE] Allergy (Unknown, Verified 09/20/23 08:07) palpitations, hyper penicillin V Allergy (Unknown, Verified 09/20/23 08:07) rash ?, hives Penicillins Allergy (Unknown, Verified 09/20/23 08:07) HIVES pseudoephedrine [Sudafed] Allergy (Unknown, Verified 09/20/23 08:07) Unknown tramadol [TRAMADOL] Allergy (Unknown, Verified 09/20/23 08:07) palpitations, hyper vilazodone [Viibryd] Allergy (Unknown, Verified 09/20/23 08:07) dry mouth and tremors zolpidem [Ambien] Allergy (Unknown, Verified 09/20/23 08:07) Unknown bupropion [BUPROPION] Adverse Reaction (Intermediate, Verified 09/20/23 08:07) HTN, BLURRY VISION quetiapine [From Seroquel] Adverse Reaction (Intermediate, Verified 09/20/23 08:07) patient states levofloxacin Adverse Reaction (Unknown, Verified 09/20/23 08:07) weakness, nausea/vomiting Do you need a note to return to daycare/school/sports/work: Yes HPI HPI Comments History of Present Illness Details Patient is a 53-year-old female in today for a sick visit. Patient was last seen in the walk-in 3 days prior to visit for acute bronchitis, was given azithromycin, prednisone, and albuterol. The patient returns today with similar symptoms of cough which gets worse at night, sore throat, wheeze, and intermittent shortness of breath. Patient states that the prednisone is helping the cough and that she has since run out, and that she has 2 days left of the Azithromycin. Patient has been unable to fill her albuterol due to insurance issues. [facility] Medical History Palpitation SARS-CoV-2 positive Generalized anxiety disorder Allergy to vaccine Low back pain Gallbladder polyp Closed left clavicular fracture History of miscarriage Temporal lobe epilepsy Hypercholesterolemia Fibromyalgia Migraine Vitamin D deficiency Bile salt-induced diarrhea Insomnia GERD (gastroesophageal reflux disease) Surgical History History of cholecystectomy Family History Father Cancer Mother CVD (cerebrovascular disease) Sister Breast cancer Family/Other Brain cancer Paternal Uncle Colon cancer Paternal Grandmother Stomach cancer Other Mental health disorder Social History Housing: Apartment Alcohol intake: never Patient Tobacco Use Status: Former Tobacco user Tobacco use type: Cigarette Years Smoked: 1 pack per week e-Cigarette/Vaping Use: Never Used Second Hand Smoke Exposure: No service: No Current occupational status: unemployed Gender identity: Female Cognitive needs: No Hearing needs: No Vision needs: Yes Review of Systems Const Details: Constitutional : No Weight loss, No fever, No Chills, admits fatigue. ENT/Mouth : Admits sore throat and Rhinorrhea, No Otalgia. Cardiovascular : Reproducible Chest Pain When Coughing, Reports intermittent SOB, No Orthopnea, No Edema, No Palpitations Respiratory : Admits Productive Cough, Admits Wheeze All other systems reviewed and are negative All systems reviewed & are unremarkable except as noted in HPI and below Physical Exam Vital Signs: Last Vital Signs Temp 97.9 F 09/20/23 08:06 Pulse 113 H 09/20/23 08:06 BP 112/74 09/20/23 08:06 Pulse Ox 98 09/20/23 08:06 Oxygen Delivery Method Room Air 09/20/23 08:06 BMI result Body Mass Index 28.7 Vital signs reviewed and stable Appearance: Alert.? Oriented X3.? No acute distress.? Head: Normocephalic Eyes: No Erythema? ENT: Pharynx erythematous, No Petechiae of throat, Clear Nasal Discharge, TM intact and pearly craig. ? Neck: Normal inspection.? Neck supple. No Lymphadenopathy. ? CVS: Normal heart rate and rhythm.? Pulses normal. Systolic Murmur. ? Respiratory: Scattered Wheeze Throughout bilaterally. Rhonchi Present. No crackles. ? Neuro: Oriented X 3.? Office Procedures Nebulizer Treatment Nebulizer Treatment 51063-[id number]/MDI RX initial, or Nebulizer Subsequent Treatment Office Meds albuterol sulfate 2.5 mg/3 mL (0.083 %) solution for nebulization Performing Provider: WISAM Solares Performing Location: [facility] Walk In [facility] ([facility]3] Documented (not given) by: Awilda Lozano CMA on 09/20/23 08:48 Reason Not Given: No Longer Necessary ipratropium 0.5 mg-albuterol 3 mg (2.5 mg base)/3 mL nebulization soln Performing Provider: WISAM Solares Performing Location: [facility] Walk In [facility] ([facility]3] Administered by: Awilda Lozano CMA on 09/20/23 08:48 Dose Route Admin Location Dispensed Lot Number Expiration Date NDC Graphic Engineer 3 mL inhalation 3 mL [id number] 01/16/24 0690-9723-44 [facility] Assessment & Plan Assessment & Plan (1) Acute bronchitis: Code(s): J20.9 - Acute bronchitis, unspecified Qualifiers: Bronchitis organism: unspecified organism Qualified Code(s): J20.9 - Acute bronchitis, unspecified Plan: Patient will be given 3 days of prednisone to help with the cough and wheeze that is keeping her up at night. Patient also instructed to finish her course of azithromycin. Patient was given in office nebulizer treatment with good effect. Patient was unable to obtain albuterol inhaler after previous walk-in visit and was connected with our community nurse for assistance. Patient also had in office chest x-ray and respiratory swab. Patient advised to follow-up with primary care physician. Patient educated on worsening signs and symptoms and when to return to the walk-in clinic or to present to the emergency room. Orders: Orders SARS-CoV2/FLU/RSV Today J06.9 - Acute upper respiratory infection, unspecified XR chest 2V Today J98.8 - Other specified respiratory disorders AMB Nebulizer Treatment Today J98.8 - Other specified respiratory disorders Medications: Refilled prednisone 60 mg (3 x 20 mg) PO DAILY 9 tabs 0RF Coding Level of Care Code Est Pt Level 4 (72807) Diagnoses Acute bronchitis, unspecified organism J20.9 Bronchitis organism: unspecified organism CPT Codes Nebulizer Treatment - Nebulizer Treatment, initial or subsequent: [id number]/MDI RX initial, or Nebulizer Subsequent Treatment ([id number]) Time Spent (min) 30
== END 2023-09-20 09:41 | disposition home or self-care (01) ==
PROVIDERS: PCP Internal Medicine; Visit Provider Nurse Practitioner Primary Care
DX: J20.9 Acute bronchitis, unspecified (principal); J98.8 Other specified respiratory disorders
CPT/HCPCS: 94640; 99214; J7620

== ENCOUNTER 2023-09-20 08:51 | Outpatient (REF) | payer MEDICARE, MEDICAID, SELFPAY ==
--- NOTE | ~2023-09-20 | XR_ITS ---
EXAMINATION: XR CHEST CLINICAL INFORMATION: Respiratory disorder COMPARISON: None available. TECHNIQUE: 2 views of the chest were obtained. FINDINGS: No significant abnormality is noted involving the heart, lungs, mediastinum, bony thorax or soft tissues. XR/XR chest 2V IMPRESSION: Unremarkable chest examination.
[2023-09-20 12:01] LABS: Influenza A PCR NEGATIVE (Negative); Influenza B PCR NEGATIVE (Negative); Resp Syncy Virus RNA Qual PCR NEGATIVE (Negative); SARS COV2 PCR INHOUSE NEGATIVE (Negative)
== END 2023-09-20 08:52 | disposition home or self-care (01) ==
LOC: HO.HMGCX 08:51
PROVIDERS: Visit Provider Nurse Practitioner Primary Care
DX: J98.8 Other specified respiratory disorders (principal); J06.9 Acute upper respiratory infection, unspecified; Z11.52 Encounter for screening for COVID-19
CPT/HCPCS: 0241U; 71046

== ENCOUNTER 2023-10-15 12:49 | Outpatient (REF) | payer MEDICARE, MEDICAID, SELFPAY ==
[2023-10-15 13:57] LABS: MANUAL DIFF FLAG NO
[2023-10-15 14:01] LABS: Basophils Absolute Auto 0.1 X10*3/uL (0.0-0.2); Basophils Percent Auto 0.8 % (0-2); Eosinophils Absolute Auto 0.2 X10*3/uL (0.0-0.4); Eosinophils Percent Auto 2.1 % (0-4); Hemoglobin 14.9 g/dl (12.0-16.0); Imm Gran Abs Auto 0.07 X10*3/uL (0.00-0.03); Imm Gran Pct Auto 0.6 % (0.0-0.4); Lymphocytes Absolute Auto 3.7 X10*3/uL (1.2-4.9); Lymphocytes Percent Auto 34.3 % (20-40); Mean Corpuscular HGB Conc 33.1 g/dl (31.0-35.0); Mean Corpuscular Volume 93.8 fL (80.0-98.0); Mean Platelet Volume 8.9 fL (9.4-12.3); Monocytes Absolute Auto 1.1 X10*3/uL (0.1-1.2); Monocytes Percent Auto 10.3 % (2-11); Neutrophils Absolute Auto 5.6 x10*3/uL (2.0-8.3); Neutrophils Percent Auto 51.9 % (45-73); Platelet Count 384 X10*3/uL (160-400); Red Cell Distribution Width 12.4 % (11.0-16.0); White Blood Count 10.9 X10*3/uL (4.8-10.8)
[2023-10-15 14:30] LABS: Alanine Aminotransferase 17 U/L (0-31); Albumin Level 4.3 g/dL (3.5-5.0); Alkaline Phosphatase 73 U/L (39-117); Anion Gap 10 (12-20); Aspartate Amino Transferase 18 U/L (5-31); Bilirubin Total 0.2 mg/dL (0.0-1.0); Blood Urea Nitrogen 11 mg/dL (9-16); Calcium 9.4 mg/dL (8.4-10.2); Carbon Dioxide 25 mmol/L (22-29); Chloride 107 mmol/L (96-108); Cholesterol 220 mg/dL (<200); Estimated Glomerular Filt Rate > 60; Glucose Random 96 mg/dL (60-115); HDL Cholesterol 45 mg/dL (>40); LDL Cholesterol Calculated 134 mg/dL (<100); Potassium 4.2 mmol/L (3.3-5.1); Sodium 138 mmol/L (135-145); Total Protein 7.1 g/dL (6.5-8.0); Triglycerides 209 mg/dL (<150)
[2023-10-15 14:33] LABS: Estimated Average Glucose 111 mg/dL; Hemoglobin A1c % 5.5 % (<6.0)
[2023-10-15 14:39] LABS: Erythrocyte Sedimentation Rate 9 MM/HR (0-20)
[2023-10-20 13:04] LABS: Asperg fumigatus Precip Abs NEGATIVE (NEGATIVE); Micropoly faeni Abs NEGATIVE (NEGATIVE); Pigeon serum Abs NEGATIVE (NEGATIVE); Saccharo pora viridis Abs NEGATIVE (NEGATIVE); Thermo candidus Abs NEGATIVE (NEGATIVE); Thermoa vulgaris #1 NEGATIVE (NEGATIVE)
== END 2023-10-15 12:50 | disposition home or self-care (01) ==
LOC: HO.LAB 12:49
PROVIDERS: PCP Internal Medicine; Referring Provider Internal Medicine; Visit Provider Hospitalist
DX: J45.909 Unspecified asthma, uncomplicated (principal); T78.40XA Allergy, unspecified, initial encounter; R91.8 Other nonspecific abnormal finding of lung field; E78.00 Pure hypercholesterolemia, unspecified; Z79.899 Other long term (current) drug therapy
CPT/HCPCS: 36415; 80053; 80061; 82784; 82785; 83036; 85025; 85652; 86003; 86331; 86606; 86609; 99212

== ENCOUNTER 2023-10-15 12:49 | Outpatient (AMB) | payer MEDICARE, MEDICAID, SELFPAY ==
--- NOTE | 2023-10-15 12:57 | MHC.OFFVIS ---
Intake Vital Signs 10/15/23 12:58 Height 5 ft 4 in Weight 168 lb 10.458 oz BMI 28.9 BP 124/76 Blood Pressure Location Lt brachial Position Sitting Respiration 16 Pulse 92 Pulse Source Pulse Oximeter Pulse Oximetry (%) 96 Oxygen Delivery Method Room Air Intake Visit Reasons: Recurrent Respiratory Infection Allergies Clindamycin HCl Allergy (Unknown, Verified 10/15/23 13:03) esophagus, trouble swallowing gabapentin Allergy (Unknown, Verified 10/15/23 13:03) Unknown ibuprofen Allergy (Unknown, Verified 10/15/23 13:03) nausea metoclopramide [Reglan] Allergy (Unknown, Verified 10/15/23 13:03) jittery NSAIDS (Non-Steroidal Anti-Inflamma [NSAIDS (NON-STEROIDAL ANTI-INFLAMMA] Allergy (Unknown, Verified 10/15/23 13:03) STOMACH UPSET oxycodone [OXYCODONE] Allergy (Unknown, Verified 10/15/23 13:03) palpitations, hyper penicillin V Allergy (Unknown, Verified 10/15/23 13:03) rash ?, hives Penicillins Allergy (Unknown, Verified 10/15/23 13:03) HIVES pseudoephedrine [Sudafed] Allergy (Unknown, Verified 10/15/23 13:03) Unknown tramadol [TRAMADOL] Allergy (Unknown, Verified 10/15/23 13:03) palpitations, hyper vilazodone [Viibryd] Allergy (Unknown, Verified 10/15/23 13:03) dry mouth and tremors zolpidem [Ambien] Allergy (Unknown, Verified 10/15/23 13:03) Unknown bupropion [BUPROPION] Adverse Reaction (Intermediate, Verified 10/15/23 13:03) HTN, BLURRY VISION quetiapine [From Seroquel] Adverse Reaction (Intermediate, Verified 10/15/23 13:03) patient states levofloxacin Adverse Reaction (Unknown, Verified 10/15/23 13:03) weakness, nausea/vomiting HPI HPI Comments History of Present Illness Details The patient is here for pulmonary evaluation. The patient is a 53 year woman with a known history of asthma who has been developing worsening respiratory symptoms. She has had multiple evaluations in urgent care and also with her primary care doctor due to worsening productive cough and bronchitis. The patient responds to antibiotics and prednisone fairly well. But then when she completes the course her symptoms again recurred. The recently she was started on Symbicort which is a good inhaler. Also start the productive cough with green sputum. She has denies any allergy testing in the past. The patient denies any significant exposures either. The patient did undergo pulmonary function studies recently. We did personally review the results. Of has significant small airways disease suggestive of her asthma but also has moderate degree of restrictive she in the lung volumes which is unclear in etiology. She did have a chest x-ray but not diagnostic. Therefore I will request a CT scan of the chest to better assess her symptoms and her very abnormal PFTs. The patient will also undergo blood work to further address any triggers or precipitants of her respiratory symptoms. [facility] Medical History (Updated 10/15/23 @ 21:09 by Dustin Arango MD) Chronic restrictive lung disease Asthma-COPD overlap syndrome Chronic allergic rhinitis Allergies Asthma Palpitation SARS-CoV-2 positive Generalized anxiety disorder Allergy to vaccine Low back pain Gallbladder polyp Closed left clavicular fracture History of miscarriage Temporal lobe epilepsy Hypercholesterolemia Fibromyalgia Migraine Vitamin D deficiency Bile salt-induced diarrhea Insomnia GERD (gastroesophageal reflux disease) Surgical History History of cholecystectomy Family History Father Cancer Mother CVD (cerebrovascular disease) Sister Breast cancer Family/Other Brain cancer Paternal Uncle Colon cancer Paternal Grandmother Stomach cancer Other Mental health disorder Social History Housing: Apartment Alcohol intake: never Patient Tobacco Use Status: Former Tobacco user Tobacco use type: Cigarette Years Smoked: 1 pack per week e-Cigarette/Vaping Use: Never Used Second Hand Smoke Exposure: No service: No Current occupational status: unemployed Gender identity: Female Cognitive needs: No Hearing needs: No Vision needs: Yes Review of Systems Const Denies poor appetite and Denies weakness Eyes Denies no additional complaints ENT Reports Normal hearing present, Denies dizziness, Denies nasal congestion, Denies tinnitus and Denies sore throat Card Denies chest pain, Denies syncope, Denies rapid heart rate and Denies dyspnea Resp Reports chest congestion, Reports cough, Denies dyspnea and Reports wheezing GI Denies change in stool character, Reports constipation, Denies diarrhea, Denies nausea and Denies vomiting Neuro Reports Normal hearing present, Denies confusion, Denies dizziness, Denies syncope and Denies weakness Psych Denies confusion Aller/Immun Reports wheezing Physical Exam Vital Signs: Last Vital Signs Pulse 92 10/15/23 12:58 Resp 16 10/15/23 12:58 BP 124/76 10/15/23 12:58 Pulse Ox 96 10/15/23 12:58 Oxygen Delivery Method Room Air 10/15/23 12:58 BMI result Body Mass Index 28.9 Const General: No confusion Orientation/consciousness: No confusion HEENT Head: Yes normocephalic Neck Neck: Yes supple Chest Chest palpation & inspection: normal inspection of the chest Resp Effort & Inspection: normal respiratory effort and Actively coughing Quality: productive Auscultation: diminished lung sounds Cardio Rate: regular rate Rhythm: regular rhythm Heart sounds: S1 normal heart sound present and S2 normal heart sound present GI Palpation (GI): Soft to palpation Skin General skin exam: no rashes or lesions noted Neuro General: No confusion Cranial nerves: Yes Normal hearing present Extrem General: Yes no clubbing, cyanosis or edema Assessment & Plan Assessment & Plan (1) Asthma-COPD overlap syndrome: Code(s): J44.89 - Other specified chronic obstructive pulmonary disease (2) Chronic allergic rhinitis: Code(s): J30.9 - Allergic rhinitis, unspecified (3) Allergies: Code(s): T78.40XA - Allergy, unspecified, initial encounter Qualifiers: Encounter type: initial encounter Qualified Code(s): T78.40XA - Allergy, unspecified, initial encounter (4) Bronchitis: Code(s): J40 - Bronchitis, not specified as acute or chronic (5) Chronic restrictive lung disease: Code(s): J98.4 - Other disorders of lung Plan Bloodwork allergy testing sputum culture continue symbicort JUDE as needed CT chest F/U 6-8 weeks Orders: Orders Sputum Cult + Gram stain Today J30.9 - Allergic rhinitis, unspecified, J45.909 - Unspecified asthma, uncomplicated, T78.40XA - Allergy, unspecified, initial encounter Erythrocyte Sedimentation Rate Today J30.9 - Allergic rhinitis, unspecified, J45.909 - Unspecified asthma, uncomplicated, T78.40XA - Allergy, unspecified, initial encounter Complete Blood Count Auto Diff Today J30.9 - Allergic rhinitis, unspecified, J45.909 - Unspecified asthma, uncomplicated, T78.40XA - Allergy, unspecified, initial encounter Basic Metabolic Panel Today J30.9 - Allergic rhinitis, unspecified, J45.909 - Unspecified asthma, uncomplicated, T78.40XA - Allergy, unspecified, initial encounter Hypersensitive Pneumonitis Prf Today J30.9 - Allergic rhinitis, unspecified, J45.909 - Unspecified asthma, uncomplicated, R91.8 - Other nonspecific abnormal finding of lung field, T78.40XA - Allergy, unspecified, initial encounter Rast Allergen Today J30.9 - Allergic rhinitis, unspecified, J45.909 - Unspecified asthma, uncomplicated, T78.40XA - Allergy, unspecified, initial encounter Immunoglobulin E Today J30.9 - Allergic rhinitis, unspecified, J45.909 - Unspecified asthma, uncomplicated, T78.40XA - Allergy, unspecified, initial encounter Immunoglobulins,IgG IgA IgM Today J30.9 - Allergic rhinitis, unspecified, J45.909 - Unspecified asthma, uncomplicated, T78.40XA - Allergy, unspecified, initial encounter CT chest wo IV con Today J98.4 - Other disorders of lung Medications: New albuterol sulfate 2.5 mg (3 mL) inhalation BID 30 days 180 mL 11RF J44.89 - Other specified chronic obstructive pulmonary disease doxycycline monohydrate 100 mg PO BID 14 days 28 tabs 0RF Coding Level of Care Code New Pt Level 4 (02935) Diagnoses Asthma-COPD overlap syndrome J44.89 Chronic allergic rhinitis J30.9 Allergy, initial encounter T78.40XA Encounter type: initial encounter Bronchitis J40 Chronic restrictive lung disease J98.4 Time Spent (min) 40
[2023-10-15 12:58] VITALS: BP 124/76; PULSE 92; RESP 16; O2SAT 96; BMI 28.9
== END 2023-10-15 13:29 | disposition home or self-care (01) ==
PROVIDERS: PCP Internal Medicine; Referring Provider Internal Medicine; Visit Provider Hospitalist
DX: J44.89 Other specified chronic obstructive pulmonary disease (principal); J30.9 Allergic rhinitis, unspecified; T78.40XA Allergy, unspecified, initial encounter; J98.4 Other disorders of lung
CPT/HCPCS: 99214

== ENCOUNTER 2023-11-26 08:40 | Outpatient (AMB) | payer MEDICARE, MEDICAID, SELFPAY ==
[2023-11-26 08:53] VITALS: BP 130/74; PULSE 82; O2SAT 97; BMI 29.3
--- NOTE | 2023-11-26 08:53 | MHC.PC.OV ---
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: No Allergies Clindamycin HCl Allergy (Unknown, Verified 11/26/23 08:54) esophagus, trouble swallowing gabapentin Allergy (Unknown, Verified 11/26/23 08:54) Unknown ibuprofen Allergy (Unknown, Verified 11/26/23 08:54) nausea metoclopramide [Reglan] Allergy (Unknown, Verified 11/26/23 08:54) jittery NSAIDS (Non-Steroidal Anti-Inflamma [NSAIDS (NON-STEROIDAL ANTI-INFLAMMA] Allergy (Unknown, Verified 11/26/23 08:54) STOMACH UPSET oxycodone [OXYCODONE] Allergy (Unknown, Verified 11/26/23 08:54) palpitations, hyper penicillin V Allergy (Unknown, Verified 11/26/23 08:54) rash ?, hives Penicillins Allergy (Unknown, Verified 11/26/23 08:54) HIVES pseudoephedrine [Sudafed] Allergy (Unknown, Verified 11/26/23 08:54) Unknown tramadol [TRAMADOL] Allergy (Unknown, Verified 11/26/23 08:54) palpitations, hyper vilazodone [Viibryd] Allergy (Unknown, Verified 11/26/23 08:54) dry mouth and tremors zolpidem [Ambien] Allergy (Unknown, Verified 11/26/23 08:54) Unknown bupropion [BUPROPION] Adverse Reaction (Intermediate, Verified 11/26/23 08:54) HTN, BLURRY VISION quetiapine [From Seroquel] Adverse Reaction (Intermediate, Verified 11/26/23 08:54) patient states levofloxacin Adverse Reaction (Unknown, Verified 11/26/23 08:54) weakness, nausea/vomiting Medication List - Last Reconciled 11/26/23 by April Vizcaino MD albuterol sulfate 90 mcg/actuation (Ventolin HFA) 2 puffs inhalation Q6H PRN albuterol sulfate 90 mcg/actuation (Ventolin HFA) 1 inh inhalation QID PRN albuterol sulfate 2.5 mg (3 mL) inhalation QID PRN albuterol sulfate 2.5 mg (3 mL) inhalation BID 30 days amitriptyline 20 mg (2 x 10 mg) PO BEDTIME 90 days ascorbate calcium (vitamin C) 1 g PO Q6H budesonide-formoterol 160-4.5 mcg/actuation (Symbicort) 2 puffs inhalation Q12H calcium carbonate 1,000 mg (2 x 500 mg calcium (1,250 mg)) PO DAILY cetirizine (Zyrtec) 10 mg PO DAILY PRN cholecalciferol (vitamin D3) 25 mcg PO DAILY clonazepam 1 mg PO BID PRN cyclobenzaprine 10 mg PO BEDTIME dexlansoprazole (Dexilant) 60 mg PO DAILY diclofenac sodium 1% topical doxycycline monohydrate 100 mg PO BID 14 days ferrous sulfate (Feosol) 325 mg PO DAILY fluconazole 150 mg PO ONCE [GROWTH STRENGTH RECOVERY ] guaifenesin ER (Mucinex) 600 mg PO Q12H PRN metoclopramide HCl 5 mg (1/2 x 10 mg) PO TID 90 days metoclopramide HCl 10 mg PO Q6H PRN montelukast 10 mg PO DAILY nebulizers (Aeroneb Go Nebulizer) As directed ondansetron 4 mg PO Q8H PRN prednisone 40 mg (2 x 20 mg) PO DAILY 5 days simvastatin 10 mg PO BEDTIME trazodone 50 mg PO BEDTIME PRN triamcinolone acetonide (Nasacort) 2 sprays intranasal DAILY vitamin B complex (B Complex-Vitamin B12 tablet) 1 tab PO DAILY zinc 50 mg PO DAILY Tobacco use date assessed: 11/26/23 HPI cholesterol HPI Details 53-year-old overweight female with abdominal aorta atherosclerosis asthma GERD hypercholesterolemia insomnia and generalized anxiety disorder last seen in August 2023. Patient is reminded about the mammogram. Patient had recurrent respiratory infection and was sent for pulmonary evaluation diagnosis of small airway disease suggestive of asthma and has a moderate degree of restrictive lung disease patient was advised to have CT scan of the chest Symbicort continue sed rate CBC hypersensitivity pneumonitis rest allergen in immunoglobulins requested. August 2023 nausea epigastric pain vomiting fever she fainted workup was negative diagnosis of epigastric pain coccygeal pain due to the fall. CT scan postponed due to sic k and will be resceduled. PAtient is problematic about CHRISTINA and wanting more hours to help. [facility] Medical History (Updated 11/26/23 @ 09:29 by April Vizcaino MD) Allergies Asthma Bronchitis Ingrown left greater toenail Acute bronchitis Left leg numbness Chronic restrictive lung disease Asthma-COPD overlap syndrome Chronic allergic rhinitis Palpitation SARS-CoV-2 positive Generalized anxiety disorder Allergy to vaccine Low back pain Gallbladder polyp Closed left clavicular fracture History of miscarriage Temporal lobe epilepsy Hypercholesterolemia Fibromyalgia Migraine Vitamin D deficiency Bile salt-induced diarrhea Insomnia GERD (gastroesophageal reflux disease) Surgical History History of cholecystectomy Family History Father Cancer Mother CVD (cerebrovascular disease) Sister Breast cancer Family/Other Brain cancer Paternal Uncle Colon cancer Paternal Grandmother Stomach cancer Other Mental health disorder Social History Housing: Apartment Alcohol intake: never Patient Tobacco Use Status: Former Tobacco user Tobacco use type: Cigarette Years Smoked: 1 pack per week e-Cigarette/Vaping Use: Never Used Second Hand Smoke Exposure: No service: No Current occupational status: unemployed Gender identity: Female Cognitive needs: No Hearing needs: No Vision needs: Yes Questionnaire PHQ-9 Over the last 2 weeks, how often have you been bothered by any of the following problems? 1. Little interest or pleasure in doing things: not at all 2. Feeling down, depressed, or hopeless: not at all 3. Trouble falling or staying asleep, or sleeping too much: not at all 4. Feeling tired or having little energy: not at all 5. Poor appetite or overeating: not at all 6. Feeling bad about yourself - or that you are a failure or have let yourself or your family down: not at all 7. Trouble concentrating on things, such as reading the newspaper or watching television: not at all 8. Moving or speaking so slowly that other people could have noticed. Or the opposite - being so fidgety or restless that you have been moving around a lot more than usual: not at all 9. Thoughts that you would be better off or of hurting yourself in some way: not at all Total score: 0 Depression Screening Interpretation: Negative Depression Screening Done: Yes Source: Developed by Drs. Fady Paredes, Arlen Stewart, Abhi Morris and colleagues, with an educational carina from [employer]. Thrive Questionnaire Date Thrive assessed: 11/26/23 I am a: Patient What is your living situation today?: I have a steady place to live Within the past 12 months, did the food you bought not last and you didn't have the money to get more?: Never true Within the past 12 months, did you worry whether your food would run out before you got money to buy more?: Never true Do you have trouble paying for medicines?: No Do you have trouble getting transportation to medical appointments?: No Do you have trouble paying your heating and electricity bill?: No Do you have trouble taking care of your child, family member or friend?: No Do you have trouble with day-to-day activities such as bathing, preparing meals, shopping, managing finances, etc.?: No Are you currently unemployed and looking for a job?: No Are you interested in more education?: No AUDIT C Alcohol Use Questionnaire (AUDIT-C) 1. How often do you have a drink containing alcohol?: Never 2. How many drinks containing alcohol do you have on a typical day when you are drinking?: 1 or 2 (none) 3. How often do you have six or more drinks on one occasion?: Never Total Score: 0 Score Reviewed/Action Taken: No MONY-7 AMB Questionnaire MONY-7 Date MONY - 7 assessed: 11/26/23 Feeling nervous, anxious, or on edge: 0 = Not at all Not being able to stop or control worryin = Not at all Worrying too much about different things: 0 = Not at all Trouble relaxin = Not at all Being so restless that it is hard to sit still: 0 = Not at all Becoming easily annoyed or irritable: 0 = Not at all Feeling afraid as if something awful might happen: 0 = Not at all Total MONY-7 score (0-4 normal; 5-9 mild; 10-14 moderate; 15-21 severe): 0 Source: Developed by Drs. Fady Paredes, Arlen Stewart, Abhi Morris and colleagues, with an educational carina from [employer]. Physical exam (Primary Care) Vital Signs: Last Vital Signs Pulse 82 11/26/23 08:53 BP 130/74 11/26/23 08:53 Pulse Ox 97 11/26/23 08:53 Oxygen Delivery Method Room Air 11/26/23 08:53 BMI result Body Mass Index 29.3 Tobacco/Smoking Status: Tobacco use Status Tobacco use date assessed 11/26/23 11/26/23 08:56 Patient Tobacco Use Status Former Tobacco user 11/26/23 08:56 Tobacco use type Cigarette 11/26/23 08:56 e-Cigarette/Vaping Use Never Used 11/26/23 08:56 PHQ-9: PHQ-9 Score PHQ-9: Total score 0 11/26/23 08:56 Depression Screening Interpretation: Negative Thrive Assessment: Date of Thrive Assessment Date Thrive assessed 11/26/23 11/26/23 08:56 Const General: alert; No acute distress Eyes Conjunctivae: conjunctivae normal Resp Auscultation: clear to auscultation bilaterally Cardio Rate: regular rate Rhythm: regular rhythm GI Inspection: Yes normal to inspection Extrem General: Yes normal to inspection and No edema Assessment and Plan Assessment & Plan (1) Asthma-COPD overlap syndrome: Code(s): J44.89 - Other specified chronic obstructive pulmonary disease Plan: Patient is being followed up by Pulmonary workup was requested including CT scan and blood work continue with Symbicort (2) Chronic allergic rhinitis: Code(s): J30.9 - Allergic rhinitis, unspecified Plan: Workup under pulmonary with rest testing in allergy testing (3) Overweight (BMI 25.0-29.9): Code(s): E66.3 - Overweight Plan: Diet and exercise. Discussion about the weight was brought up. Concern on being on steroids a lot. Discussed with the patient to do everything she can to prevent infections so as to prevent steroid treatment. Unfortunately the with every steroid treatment weight is going to be a problem. (4) Breast cancer screening by mammogram: Code(s): Z12.31 - Encounter for screening mammogram for malignant neoplasm of breast Plan: Reminded about the mammogram (5) Colon cancer screening: Code(s): Z12.11 - Encounter for screening for malignant neoplasm of colon Plan: Reminded about colon test (6) Generalized anxiety disorder: Comment: Panic disorder conversion schizotypal personality disorder depression Dr. Hector Bhandari [phone] [facility] Code(s): F41.1 - Generalized anxiety disorder Plan: Continue to follow-up with counseling and therapy (7) Hypercholesterolemia: Code(s): E78.00 - Pure hypercholesterolemia, unspecified Plan: Avoid fried foods, chicken skin, eggs, butter margarine, pastries and meat. Be it pork or beef they have a lot of cholesterol LDL goal of less than 130 and triglyceride of less than 150 preferably lower. Patient is on simvastatin 5 mg once a day. Increase simvastatin to 10 mg once a day and discussion on diet again (8) GERD (gastroesophageal reflux disease): Code(s): K21.9 - Gastro-esophageal reflux disease without esophagitis Plan: Avoid the foods that causes that usually spicy foods, tomato products, juices, coffee, soda and foods that your sensitive to. After eating do not lie down, allow 3-4 hours before in lie down. And keep the head of bed above 30 degrees to avoid the acid from going up. Orders: Orders Lipid Panel 3 Months E78.00 - Pure hypercholesterolemia, unspecified Comprehensive Met. Panel 3 Months I70.0 - Atherosclerosis of aorta Medications: Changed From simvastatin 5 mg PO BEDTIME 30 tabs 4RF E78.00 - Pure hypercholesterolemia, unspecified To simvastatin 10 mg PO BEDTIME 30 tabs 4RF E78.00 - Pure hypercholesterolemia, unspecified Refilled trazodone 50 mg PO BEDTIME PRN 90 tabs 3RF sleep F41.1 - Generalized anxiety disorder fluconazole 150 mg PO ONCE 1 tab 0RF symptoms of yeast infection I70.0 - Atherosclerosis of aorta Coding Level of Care Code Est Pt Level 4 (84582) Diagnoses Asthma-COPD overlap syndrome J44.89 Chronic allergic rhinitis J30.9 Overweight (BMI 25.0-29.9) E66.3 Breast cancer screening by mammogram Z12.31 Colon cancer screening Z12.11 Generalized anxiety disorder F41.1 Hypercholesterolemia E78.00 GERD (gastroesophageal reflux disease) K21.9
== END 2023-11-26 10:03 | disposition home or self-care (01) ==
PROVIDERS: Visit Provider Internal Medicine
DX: J44.89 Other specified chronic obstructive pulmonary disease (principal); J30.9 Allergic rhinitis, unspecified; E66.3 Overweight; F41.1 Generalized anxiety disorder; E78.00 Pure hypercholesterolemia, unspecified; K21.9 Gastro-esophageal reflux disease without esophagitis; Z68.29 Body mass index [BMI] 29.0-29.9, adult
CPT/HCPCS: 99214

== ENCOUNTER 2024-01-08 11:02 | Outpatient (AMB) | payer MEDICARE, MEDICAID, SELFPAY ==
[2024-01-08 11:29] VITALS: BP 132/90; PULSE 80; O2SAT 98; BMI 28.7
--- NOTE | 2024-01-08 11:29 | A.OFFVIS_ITS ---
Intake Vital Signs 01/08/24 11:29 Height 5 ft 4 in Weight 167 lb BMI 28.7 BP 132/90 H Blood Pressure Location Lt brachial Position Sitting Pulse 80 Pulse Source Pulse Oximeter Pulse Oximetry (%) 98 Oxygen Delivery Method Room Air Intake Visit Reasons: AWV Aircraft Stress Analyst Required: No Accompanied by: Self / Same As Patient Allergies Clindamycin HCl Allergy (Unknown, Verified 01/08/24 11:30) esophagus, trouble swallowing gabapentin Allergy (Unknown, Verified 01/08/24 11:30) Unknown ibuprofen Allergy (Unknown, Verified 01/08/24 11:30) nausea metoclopramide [Reglan] Allergy (Unknown, Verified 01/08/24 11:30) jittery NSAIDS (Non-Steroidal Anti-Inflamma [NSAIDS (NON-STEROIDAL ANTI-INFLAMMA] Allergy (Unknown, Verified 01/08/24 11:30) STOMACH UPSET oxycodone [OXYCODONE] Allergy (Unknown, Verified 01/08/24 11:30) palpitations, hyper penicillin V Allergy (Unknown, Verified 01/08/24 11:30) rash ?, hives Penicillins Allergy (Unknown, Verified 01/08/24 11:30) HIVES pseudoephedrine [Sudafed] Allergy (Unknown, Verified 01/08/24 11:30) Unknown tramadol [TRAMADOL] Allergy (Unknown, Verified 01/08/24 11:30) palpitations, hyper vilazodone [Viibryd] Allergy (Unknown, Verified 01/08/24 11:30) dry mouth and tremors zolpidem [Ambien] Allergy (Unknown, Verified 01/08/24 11:30) Unknown bupropion [BUPROPION] Adverse Reaction (Intermediate, Verified 01/08/24 11:30) HTN, BLURRY VISION quetiapine [From Seroquel] Adverse Reaction (Intermediate, Verified 01/08/24 11:30) patient states levofloxacin Adverse Reaction (Unknown, Verified 01/08/24 11:30) weakness, nausea/vomiting Medication List - Last Reconciled 01/08/24 by April Vizcaino MD albuterol sulfate 90 mcg/actuation (Ventolin HFA) 1 inh inhalation QID PRN albuterol sulfate 2.5 mg (3 mL) inhalation QID PRN amitriptyline 20 mg (2 x 10 mg) PO BEDTIME 90 days ascorbate calcium (vitamin C) 1 g PO Q6H budesonide-formoterol 160-4.5 mcg/actuation (Symbicort) 2 puffs inhalation Q12H calcium carbonate 1,000 mg (2 x 500 mg calcium (1,250 mg)) PO DAILY cetirizine (Zyrtec) 10 mg PO DAILY PRN cholecalciferol (vitamin D3) 25 mcg PO DAILY clonazepam 1 mg PO BID PRN dexlansoprazole (Dexilant) 60 mg PO DAILY diclofenac sodium 1% topical ferrous sulfate (Feosol) 325 mg PO DAILY [GROWTH STRENGTH RECOVERY ] magnesium oxide 400 mg PO DAILY metoclopramide HCl 5 mg (1/2 x 10 mg) PO TID 90 days montelukast 10 mg PO DAILY nebulizers (Aeroneb Go Nebulizer) As directed ondansetron 4 mg PO Q8H PRN simvastatin 10 mg PO BEDTIME trazodone 50 mg PO BEDTIME PRN triamcinolone acetonide (Nasacort) 2 sprays intranasal DAILY vitamin B complex (B Complex-Vitamin B12 tablet) 1 tab PO DAILY zinc 50 mg PO DAILY HPI AWV HPI Details 53-year-old overweight female with asthm a COPD overlap syndrome allergic rhinitis chronic generalized anxiety disorder hypercholesterolemia GERD last seen in December 11 for coming in for annual well visit . Patient's mammogram is due and colonoscopy requested. Had a long discussion with the patient regarding her feelings right now as she is feeling depressed because she had confronted her son-in-law regarding her son-in-law's way of treating her grandchild. Discussed with the patient that they have their own family now in the they should take care of it and that she should back off and just enjoy li fe. Patient does have counseling and therapy and continue with that. ON LICENSE OF [facility] Medical History (Updated 01/08/24 @ 17:08 by April Vizcaino MD) Allergies Asthma Bronchitis Ingrown left greater toenail Acute bronchitis Left leg numbness Chronic restrictive lung disease Asthma-COPD overlap syndrome Chronic allergic rhinitis Palpitation SARS-CoV-2 positive Generalized anxiety disorder Allergy to vaccine Low back pain Gallbladder polyp Closed left clavicular fracture History of miscarriage Temporal lobe epilepsy Hypercholesterolemia Fibromyalgia Migraine Vitamin D deficiency Bile salt-induced diarrhea Insomnia GERD (gastroesophageal reflux disease) Surgical History History of cholecystectomy Family History Father Cancer Mother CVD (cerebrovascular disease) Sister Breast cancer Family/Other Brain cancer Paternal Uncle Colon cancer Paternal Grandmother Stomach cancer Other Mental health disorder Social History (Updated 01/08/24 @ 12:20 by April Vizcaino MD) Housing: Apartment Alcohol intake: never Patient Tobacco Use Status: Former Tobacco user Tobacco use type: Cigarette Years Smoked: 1 pack per week stopped 2021 e-Cigarette/Vaping Use: Never Used Second Hand Smoke Exposure: No service: No Current occupational status: unemployed Gender identity: Female Cognitive needs: No Hearing needs: No Vision needs: Yes Questionnaire Medicare Wellness Checkup What gender do you identify with?: female During the past 4 weeks, how much have you been bothered by emotional problems such as feeling anxious, depressed, irritable, sad or downhearted, and blue?: slightly During the past 4 weeks, has your physical & emotional health limited your social activities with family, friends, neighbors, or groups?: slightly During the past 4 weeks, how much bodily pain have you generally had?: mild pain During the past 4 weeks, was someone available to help you if you needed & wanted help?: yes, as much as I wanted During the past 4 weeks, what was the hardest physical activity you could do for at least 2 minutes?: heavy Can you get to places out of walking distance without help? (For eg., can you travel alone on buses, taxis or drive your car?): No Can you go shopping for groceries or clothes without someone's help?: No Can you prepare your own meals?: Yes (sometimes) Can you do your housework without help?: No Because of any health problems, do you need the help of another person with your personal care needs such as eating, bathing, dressing or getting around the house?: Yes Can you handle your own money without help?: Yes During the past 4 weeks, how would you rate your health in general?: very good During the past 4 weeks how have things been going for you?: good & bad parts about equal Are you having difficulties driving your car?: no Do you always fasten your seat belt when you are in a car?: yes, usually During past 4 weeks, have you been bothered by the following: never: Trouble eating well?, Teeth or denture problems? and Problems using the telephone? and sometimes: Falling or dizzy when standing up and Tiredness or fatigue? Have you fallen 2 or more times in the past year?: Yes Are you afraid of falling?: Yes Are you a smoker?: no During the past 4 weeks, how many drinks of wine, beer, or other alcoholic beverages did you have?: no alcohol at all Do you exercise for about 20 minutes 3 or more times a week?: yes, most of the time Have you been given information to help with the following?: yes: Hazards in your house that might hurt you? and yes: Keeping track of your medications? How often do you have trouble taking medicines the way you have been told to take them?: I always take medicine as prescribed How confident are you that you can control & manage most of your health problems?: somewhat confident What is your race?: White PHQ-9 Over the last 2 weeks, how often have you been bothered by any of the following problems? 1. Little interest or pleasure in doing things: several days 2. Feeling down, depressed, or hopeless: several days 3. Trouble falling or staying asleep, or sleeping too much: not at all 4. Feeling tired or having little energy: several days 5. Poor appetite or overeating: several days 6. Feeling bad about yourself - or that you are a failure or have let yourself or your family down: several days 7. Trouble concentrating on things, such as reading the newspaper or watching television: not at all 8. Moving or speaking so slowly that other people could have noticed. Or the opposite - being so fidgety or restless that you have been moving around a lot more than usual: several days 9. Thoughts that you would be better off or of hurting yourself in some way: several days Total score: 7 Depression Screening Interpretation: Positive Depression Screening Done: Yes [id number] - PHQ-9 Billing: Yes Source: Developed by Drs. Fady Paredes, Arlen Stewart, Abhi Morris and colleagues, with an educational carina from [employer]. Review of Systems Const Denies poor appetite and Denies weakness Eyes Denies no additional complaints ENT Reports Normal hearing present, Denies dizziness, Denies nasal congestion, Denies tinnitus and Denies sore throat Card Denies chest pain, Denies syncope, Denies rapid heart rate and Denies dyspnea Resp Denies cough and Denies dyspnea GI Denies change in stool character, Reports constipation, Denies diarrhea, Denies nausea and Denies vomiting Denies urinary frequency, Denies difficulty voiding and Denies dysuria Neuro Reports Normal hearing present, Denies confusion, Denies dizziness, Denies syncope and Denies weakness Psych Denies confusion Physical Exam Vital Signs: Last Vital Signs Pulse 80 01/08/24 11:29 BP 132/90 H 01/08/24 11:29 Pulse Ox 98 01/08/24 11:29 Oxygen Delivery Method Room Air 01/08/24 11:29 BMI result Body Mass Index 28.7 Const General: No confusion Orientation/consciousness: No confusion HEENT Head: Yes normocephalic Ears: external ears normal and TM's normal bilaterally Face and sinus: Yes normal facial exam Mouth: moist mucous membranes Throat: Yes tonsils normal Eyes Conjunctivae: conjunctivae normal Pupils: Equal, round and reactive pupils present and Pupil accommodation reflex normal Direct Ophthalmoscopy: normal light reflex Neck Neck: No lymphadenopathy Thyroid: Thyroid normal Chest Chest palpation & inspection: normal inspection of the chest Resp Effort & Inspection: normal respiratory effort and no audible wheezes Auscultation: clear to auscultation bilaterally, no crackles, no wheezes and lung sounds not diminished Cardio Rate: regular rate Rhythm: regular rhythm Peripheral pulses: radial pulses present and dorsalis pedis present GI Palpation (GI): no masses Auscultation: normal bowel sounds and normoactive bowel sounds Rectal Exam - Female: deferred Skin General skin exam: no rashes or lesions noted Rashes: no rashes Neuro General: No confusion Cranial nerves: Yes Equal, round and reactive pupils present and Yes Normal hearing present Cognition (Neuro): normal cognition Gait exam (Neuro): Normal gait present Motor exam (neuro): 5/5 motor strength present throughout Deep tendon reflexes (DTR's): Right brachioradialis reflex intensity grade: 2+, Left brachioradialis reflex intensity grade: 2+, Right patellar reflex intensity grade: 2+ and Left patellar reflex intensity grade: 2+ Extrem General: No edema Assessment & Plan Assessment & Plan (1) Medicare annual wellness visit, initial: Code(s): Z00.00 - Encounter for general adult medical examination without abnormal findings Plan: Keep well hydrated, eat healthy and keep active (2) Asthma-COPD overlap syndrome: Code(s): J44.89 - Other specified chronic obstructive pulmonary disease Plan: Patient continue to follow-up with Pulmonary and continue with the inhalers. (3) GERD (gastroesophageal reflux disease): Code(s): K21.9 - Gastro-esophageal reflux disease without esophagitis Qualifiers: Esophagitis presence: without esophagitis Qualified Code(s): K21.9 - Gastro-esophageal reflux disease without esophagitis Plan: Avoid the foods that causes that usually spicy foods, tomato products, juices, coffee, soda and foods that your sensitive to. After eating do not lie down, allow 3-4 hours before in lie down. And keep the head of bed above 30 degrees to avoid the acid from going up. (4) Hypercholesterolemia: Code(s): E78.00 - Pure hypercholesterolemia, unspecified Plan: Avoid fried foods, chicken skin, eggs, butter margarine, pastries and meat. Be it pork or beef they have a lot of cholesterol LDL goal of less than 130 and triglyceride of less than 150 on simvastatin 10 mg once a day (5) Recurrent major depression: Comment: Psychiatry and counselling Code(s): F33.9 - Major depressive disorder, recurrent, unspecified Qualifiers: Active/Remission status: currently active Major depression episode severity: moderate Qualified Code(s): F33.1 - Major depressive disorder, recurrent, moderate Plan: Continue with counseling and therapy (6) Breast cancer screening by mammogram: Code(s): Z12.31 - Encounter for screening mammogram for malignant neoplasm of breast Plan: Reminded about mammogram (7) Colon cancer screening: Code(s): Z12.11 - Encounter for screening for malignant neoplasm of colon Plan: Reminded about colonoscopy (8) Cervical cancer screening: Code(s): Z12.4 - Encounter for screening for malignant neoplasm of cervix Plan: Referral to Gynecology done (9) Blood pressure elevated without history of HTN: Code(s): R03.0 - Elevated blood-pressure reading, without diagnosis of hypertension Plan: monitor the BP and record Discussed importance of getting blood pressure under control (10) Bile salt-induced diarrhea: Code(s): K90.89 - Other intestinal malabsorption Plan: Patient was advised strongly to eat a low-fat diet and Prevalite prescription sent (11) Stress incontinence: Code(s): N39.3 - Stress incontinence (female) (male) Plan: Timed voiding meaning every 1-2 hours even if you do not feel like urinating empty the bladder, avoid drinks with high sweet content like juices or caffeine that makes her urinate, 2 hours before you sleep hold liquids so that in the morning you do not get the bladder to be too full. Orders: Orders MM tomosynthesis screening BI Today Z12.31 - Encounter for screening mammogram for malignant neoplasm of breast Referrals 2 LIFE SUPPORT TECHNICIAN Referral Z12.4 - Encounter for screening for malignant neoplasm of cervix Gastroenterology Referral Z12.11 - Encounter for screening for malignant neoplasm of colon Medications: New cholestyramine-aspartame 4 gram (Prevalite) administer w/meal; avoid other meds within 1hr before or 4-6hr after dose 4 grams PO BID 60 ea 11RF R03.0 - Elevated blood-pressure reading, without diagnosis of hypertension Quality Reporting (2019) Depression/Bipolar (159/160/161/177) PHQ-9: Total score: 7 Coding Level of Care Code Medicare First (G0438) Diagnoses Medicare annual wellness visit, initial Z00.00 Asthma-COPD overlap syndrome J44.89 Gastroesophageal reflux disease without esophagitis K21.9 Esophagitis presence: without esophagitis Hypercholesterolemia E78.00 Moderate episode of recurrent major depressive disorder F33.1 Active/Remission status: currently active Major depression episode severity: moderate Breast cancer screening by mammogram Z12.31 Colon cancer screening Z12.11 Cervical cancer screening Z12.4 Blood pressure elevated without history of HTN R03.0 Bile salt-induced diarrhea K90.89 Stress incontinence N39.3
== END 2024-01-08 12:35 | disposition home or self-care (01) ==
PROVIDERS: PCP Internal Medicine; Visit Provider Internal Medicine
DX: Z00.00 Encounter for general adult medical examination without abnormal findings (principal); F33.1 Major depressive disorder, recurrent, moderate; J44.89 Other specified chronic obstructive pulmonary disease; K21.9 Gastro-esophageal reflux disease without esophagitis; R03.0 Elevated blood-pressure reading, without diagnosis of hypertension; E78.00 Pure hypercholesterolemia, unspecified; K90.89 Other intestinal malabsorption; N39.3 Stress incontinence (female) (male); Z12.31 Encounter for screening mammogram for malignant neoplasm of breast; Z12.11 Encounter for screening for malignant neoplasm of colon
CPT/HCPCS: G0438

== ENCOUNTER 2024-01-30 08:50 | Outpatient (AMB) | payer MEDICARE, MEDICAID, SELFPAY ==
--- NOTE | 2024-01-30 09:42 | AM.OFFWIN_ITS ---
Intake Vital Signs 01/30/24:43 Height 5 ft 4 in Weight 169 lb 4 oz BMI 29.0 BP 124/72 Blood Pressure Location Rt brachial Position Sitting Pulse 83 Pulse Source Pulse Oximeter Temp 97.8 F Temp Source Temporal Artery Scan Pulse Oximetry (%) 95 Oxygen Delivery Method Room Air Intake Visit Reasons: EP Cough, tickle in throat, Lungs/back pain Intake Note: Pt is here c/o cough, tickle in throat and back pain. Pt states she finished her course of antibiotics given to her last week and she has not gotten any better. Pt states she has had a bad cough for over three weeks and it is caused her headaches and back pain. Patient Tobacco Use Status: Former Tobacco user Allergies Clindamycin HCl Allergy (Unknown, Verified 01/30/24:43) esophagus, trouble swallowing gabapentin Allergy (Unknown, Verified 01/30/24:43) Unknown ibuprofen Allergy (Unknown, Verified 01/30/24:43) nausea metoclopramide [Reglan] Allergy (Unknown, Verified 01/30/24:43) jittery NSAIDS (Non-Steroidal Anti-Inflamma [NSAIDS (NON-STEROIDAL ANTI-INFLAMMA] Allergy (Unknown, Verified 01/30/24:43) STOMACH UPSET oxycodone [OXYCODONE] Allergy (Unknown, Verified 01/30/24:43) palpitations, hyper penicillin V Allergy (Unknown, Verified 01/30/24:43) rash ?, hives Penicillins Allergy (Unknown, Verified 01/30/24:43) HIVES pseudoephedrine [Sudafed] Allergy (Unknown, Verified 01/30/24:43) Unknown tramadol [TRAMADOL] Allergy (Unknown, Verified 01/30/24:43) palpitations, hyper vilazodone [Viibryd] Allergy (Unknown, Verified 01/30/24:43) dry mouth and tremors zolpidem [Ambien] Allergy (Unknown, Verified 01/30/24:43) Unknown bupropion [BUPROPION] Adverse Reaction (Intermediate, Verified 01/30/24:43) HTN, BLURRY VISION quetiapine [From Seroquel] Adverse Reaction (Intermediate, Verified 01/30/24:43) patient states levofloxacin Adverse Reaction (Unknown, Verified 03/14/24 09:43) weakness, nausea/vomiting Do you need a note to return to daycare/school/sports/work: No HPI EP Cough, tickle in throat, Lungs/back pain HPI Details This is a 53 year old female patient who presents today with a 3 week history of chest congestion/cough. She has a history of COPD and asthma - followed by [facility] pulmonology. She was started on Doxy 100 bid 10 days and Pr ednisone 40 daily x5 days by Dr. Meyer on 01/19. She states she has completed these medications and continues to have persistent cough. She states she has urinated self due to coughing fits and has come close to vomiting. She also is having back pain due to persistent cough. Has inhalers and nebulizer at home which she has also used. Denies any fever or chills. Denies any GI symptoms. Home Covid test was negative. FOR[facility]LY [facility] Medical History Allergies Asthma Bronchitis Ingrown left greater toenail Acute bronchitis Left leg numbness Chronic restrictive lung disease Asthma-COPD overlap syndrome Chronic allergic rhinitis Palpitation SARS-CoV-2 positive Generalized anxiety disorder Allergy to vaccine Low back pain Gallbladder polyp Closed left clavicular fracture History of miscarriage Temporal lobe epilepsy Hypercholesterolemia Fibromyalgia Migraine Vitamin D deficiency Bile salt-induced diarrhea Insomnia GERD (gastroesophageal reflux disease) Surgical History History of cholecystectomy Family History Father Cancer Mother CVD (cerebrovascular disease) Sister Breast cancer Family/Other Brain cancer Paternal Uncle Colon cancer Paternal Grandmother Stomach cancer Other Mental health disorder Social History Housing: Apartment Alcohol intake: never Patient Tobacco Use Status: Former Tobacco user Tobacco use type: Cigarette Years Smoked: 1 pack per week stopped 2021 e-Cigarette/Vaping Use: Never Used Second Hand Smoke Exposure: No service: No Current occupational status: unemployed Gender identity: Female Cognitive needs: No Hearing needs: No Vision needs: Yes Review of Systems Const All systems reviewed & are unremarkable except as noted in HPI and below Physical Exam Vital Signs: Last Vital Signs Temp 97.8 F 01/30/24 09:43 Pulse 83 01/30/24 09:43 BP 124/72 01/30/24 09:43 Pulse Ox 95 01/30/24 09:43 Oxygen Delivery Method Room Air 01/30/24 09:43 BMI result Body Mass Index 29.0 Const General: cooperative HEENT Head: Yes normal to inspection Ears: hearing grossly normal bilaterally General nose exam: Normal external nose present Face and sinus: Yes normal facial exam Mouth: Normal oral and palatal mucosa present Throat: Yes posterior oropharynx abnormal (mild erythema) Neck Neck: Yes no lymphadenopathy Resp Effort & Inspection: Actively coughing Quality: actively coughing Auscultation: rhonchi upper bilaterally and wheezes scattered wheezes Cardio Palpation: normal PMI Rate: regular rate Rhythm: regular rhythm Skin General skin exam: no rashes or lesions noted Extrem General: Yes capillary refill normal and Yes no clubbing, cyanosis or edema Psych Appearance: grossly normal Mental Status: mental status grossly normal Speech and movement: Normal speech and movement present Assessment & Plan Assessment & Plan (1) Acute asthmatic bronchitis: Code(s): J45.909 - Unspecified asthma, uncomplicated Plan: Chest XR done in the office today reveals a right middle lobe and left lower lobe pneumonia. Will start patient on prednisone taper. I would like to start her on a cephalosporin given that she was just recently on Doxy, and reports that PCN/amox abx do not work for her, per patient. Will start on Cefdinir 7 days. Benzonatate for the cough. Covid/Flu/RSV swab obtained. Patient aware she will be notified of results once these are available. Advised Tylenol as needed for aches r/t coughing. Recommended increased hydration, rest, vitamin C and healthy food intake. We reviewed indications, use, possible s/e of all medications. If she does not improve with treatment she should f/u. Advised f/u with PCP and Pulmonology as needed. Orders: Orders 2 SARS-CoV2/FLU/RSV Today J45.909 - Unspecified asthma, uncomplicated XR chest 2V Today J45.909 - Unspecified asthma, uncomplicated Medications: New benzonatate 100 mg PO BID 7 days PRN 14 caps 0RF cough R05.9 - Cough, unspecified prednisone Take 4 tabs for two days, then take 3 tabs for two days, then take 2 tabs for two days, then take 1 tab for 2 days. 10 mg PO DAILY 20 tabs 0RF J45.909 - Unspecified asthma, uncomplicated cefdinir 300 mg PO BID 7 days 14 caps 0RF J45.909 - Unspecified asthma, uncomplicated Coding Level of Care Code Est Pt Level 3 (35321) Diagnoses Acute asthmatic bronchitis J45.909
[2024-01-30 09:43] VITALS: BP 124/72; PULSE 83; TEMP 36.6; O2SAT 95; BMI 29.0
== END 2024-01-30 10:45 | disposition home or self-care (01) ==
PROVIDERS: PCP Internal Medicine; Visit Provider Nurse Practitioner Family
DX: J45.909 Unspecified asthma, uncomplicated (principal)
CPT/HCPCS: 99213

== ENCOUNTER 2024-01-30 10:05 | Outpatient (REF) | payer MEDICARE, MEDICAID, SELFPAY ==
[2024-01-30 14:34] LABS: Influenza A PCR NEGATIVE (Negative); Influenza B PCR NEGATIVE (Negative); Resp Syncy Virus RNA Qual PCR NEGATIVE (Negative); SARS COV2 PCR INHOUSE NEGATIVE (Negative)
== END 2024-01-30 10:06 | disposition home or self-care (01) ==
LOC: HO.LAB 10:05
PROVIDERS: Visit Provider Nurse Practitioner Family
DX: Z13.89 Encounter for screening for other disorder (principal)
CPT/HCPCS: 0241U

== ENCOUNTER 2024-01-30 10:12 | Outpatient (REF) | payer MEDICARE, MEDICAID, SELFPAY ==
--- NOTE | ~2024-01-30 | XR_ITS ---
EXAMINATION: XR CHEST CLINICAL INFORMATION: Unspecified asthma, uncomplicated COMPARISON: Chest 09/20/2023 TECHNIQUE: 2 views of the chest were obtained. FINDINGS: The lungs are well expanded. There is faint patchy opacity in the right middle lobe and left lower lobe consistent with pneumonia. No pleural effusion. No significant abnormality is noted involving the heart, mediastinum, bony thorax or soft tissues. Surgical clips in the right upper quadrant are consistent with prior cholecystectomy. XR/XR chest 2V IMPRESSION: Right middle lobe and left lower lobe pneumonia.
== END 2024-01-30 10:13 | disposition home or self-care (01) ==
LOC: HO.HMGCX 10:12
PROVIDERS: PCP Internal Medicine; Visit Provider Nurse Practitioner Family
DX: J45.909 Unspecified asthma, uncomplicated (principal); J02.9 Acute pharyngitis, unspecified; R05.3 Chronic cough
CPT/HCPCS: 0241U; 71046

== ENCOUNTER 2024-02-01 08:00 | Outpatient (REF) | payer MEDICARE, MEDICAID, SELFPAY ==
--- NOTE | ~2024-02-01 | MM_ITS ---
EXAMINATION: MM SCREENING DIGITAL BREAST TOMOSYNTHESIS, BILATERAL CLINICAL INFORMATION: Screening. Asymptomatic. COMPARISON: Mammography: This study is compared with prior exams dating back to 2013. TECHNIQUE: Digital breast tomosynthesis is performed in both the craniocaudal and mediolateral oblique views along with computer-aided detection (CAD). Synthesized 2D images are generated from the tomosynthesis. FINDINGS: There are scattered areas of fibroglandular density (ACR BI-RADS breast composition Category b). There are no significant masses, abnormal calcifications, or other abnormalities. MM/MM tomosynthesis screening BI IMPRESSION: No mammographic evidence of malignancy. ASSESSMENT: BI-RADS BI-RADS 1 - Negative RECOMMENDATION: Routine annual mammography screening. 1 year F/U This examination should not preclude the clinical evaluation of a suspicious palpable abnormality. This patient's information was entered into a reminder system with a target due date for their next mammogram.
== END 2024-02-01 08:01 | disposition home or self-care (01) ==
LOC: HO.MAMMO 08:00
PROVIDERS: PCP Internal Medicine; Visit Provider Internal Medicine
DX: Z12.31 Encounter for screening mammogram for malignant neoplasm of breast (principal)
CPT/HCPCS: 77063; 77067

== ENCOUNTER → 2024-02-01 08:15 | Outpatient (BNV) | payer MEDICARE, MEDICAID, SELFPAY | PROVIDERS: PCP Internal Medicine; Visit Provider Radiology Diagnostic Radiology | DX: Z12.31 Encounter for screening mammogram for malignant neoplasm of breast (principal) | CPT/HCPCS: 77063; 77067 ==

== ENCOUNTER 2024-02-03 09:18 | Outpatient (REF) | payer MEDICARE, MEDICAID, SELFPAY ==
--- NOTE | ~2024-02-03 | XR_ITS ---
EXAMINATION: XR CHEST CLINICAL INFORMATION: History pneumonia COMPARISON: Chest radiograph from 01/30/2024 TECHNIQUE: 2 views of the chest were obtained. FINDINGS: Redemonstrated radiopacities of the bilateral lung bases. Chronic interstitial lung markings. No pneumothorax. Trachea is midline. Cardiac mediastinal silhouette is not enlarged no large pleural effusion. Osseous structures are intact. Soft tissues are unremarkable. XR/XR chest 2V IMPRESSION: 1. Redemonstrated radiopacities of the bilateral lung bases. 2. Chronic interstitial lung markings.
== END 2024-02-03 09:19 | disposition home or self-care (01) ==
LOC: HO.LAB 09:18
PROVIDERS: PCP Internal Medicine; Visit Provider Nurse Practitioner Family
DX: J18.9 Pneumonia, unspecified organism (principal); J44.89 Other specified chronic obstructive pulmonary disease
CPT/HCPCS: 71046; 94640; 99212

== ENCOUNTER 2024-02-03 09:18 | Outpatient (AMB) | payer MEDICARE, MEDICAID, SELFPAY ==
[2024-02-03 09:27] VITALS: BP 132/68; PULSE 95; O2SAT 97; BMI 29.5
--- NOTE | 2024-02-03 09:27 | A.OFFVIS_ITS ---
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 offered & declined Accompanied by: Self / Same As Patient Allergies Clindamycin HCl Allergy (Unknown, Verified 02/03/24 09:35) esophagus, trouble swallowing gabapentin Allergy (Unknown, Verified 02/03/24 09:35) Unknown ibuprofen Allergy (Unknown, Verified 02/03/24 09:35) nausea metoclopramide [Reglan] Allergy (Unknown, Verified 02/03/24 09:35) jittery NSAIDS (Non-Steroidal Anti-Inflamma [NSAIDS (NON-STEROIDAL ANTI-INFLAMMA] Allergy (Unknown, Verified 02/03/24 09:35) STOMACH UPSET oxycodone [OXYCODONE] Allergy (Unknown, Verified 02/03/24 09:35) palpitations, hyper penicillin V Allergy (Unknown, Verified 02/03/24 09:35) rash ?, hives Penicillins Allergy (Unknown, Verified 02/03/24 09:35) HIVES pseudoephedrine [Sudafed] Allergy (Unknown, Verified 02/03/24 09:35) Unknown tramadol [TRAMADOL] Allergy (Unknown, Verified 02/03/24 09:35) palpitations, hyper vilazodone [Viibryd] Allergy (Unknown, Verified 02/03/24 09:35) dry mouth and tremors zolpidem [Ambien] Allergy (Unknown, Verified 02/03/24 09:35) Unknown bupropion [BUPROPION] Adverse Reaction (Intermediate, Verified 02/03/24 09:35) HTN, BLURRY VISION quetiapine [From Seroquel] Adverse Reaction (Intermediate, Verified 02/03/24 09:35) patient states levofloxacin Adverse Reaction (Unknown, Verified 02/03/24 09:35) weakness, nausea/vomiting Medication List - Last Reconciled 02/03/24 by Kathe Blue LPN albuterol sulfate 90 mcg/actuation (Ventolin HFA) 1 inh inhalation QID PRN albuterol sulfate 2.5 mg (3 mL) inhalation QID PRN amitriptyline 20 mg (2 x 10 mg) PO BEDTIME 90 days ascorbate calcium (vitamin C) 1 g PO Q6H benzonatate 100 mg PO BID PRN 7 days budesonide-formoterol 160-4.5 mcg/actuation (Symbicort) 2 puffs inhalation Q12H calcium carbonate 1,000 mg (2 x 500 mg calcium (1,250 mg)) PO DAILY cefdinir 300 mg PO BID 7 days cetirizine (Zyrtec) 10 mg PO DAILY PRN cholecalciferol (vitamin D3) 25 mcg PO DAILY cholestyramine-aspartame 4 gram (Prevalite) 4 grams PO BID clonazepam 1 mg PO BID PRN dexlansoprazole (Dexilant) 60 mg PO DAILY diclofenac sodium 1% topical eszopiclone (Lunesta) 3 mg PO BEDTIME ferrous sulfate (Feosol) 325 mg PO DAILY [GROWTH STRENGTH RECOVERY ] magnesium oxide 400 mg PO DAILY metoclopramide HCl 5 mg (1/2 x 10 mg) PO TID 90 days montelukast 10 mg PO DAILY nebulizers (Aeroneb Go Nebulizer) As directed ondansetron 4 mg PO Q8H PRN prednisone 10 mg PO DAILY simvastatin 10 mg PO BEDTIME trazodone 50 mg PO BEDTIME PRN triamcinolone acetonide (Nasacort) 2 sprays intranasal DAILY vitamin B complex (B Complex-Vitamin B12 tablet) 1 tab PO DAILY zinc 50 mg PO DAILY HPI hospital follow up HPI Details Zoila is pleasant 53 year old female, former smoker, with underlying asthma COPD overlap syndrome, GERD and seasonal allergies. She is under the care of Dr. Arango and presents today for an acute visit. she reports a 3 week history of chest congestion, wheezing and productive cough with yellow sputum. She was treated with doxycycline as well as prednisone on 01/19 with no change in symptoms. She was then seen at urgent care on 01/29 where she had a chest x-ray performed suggestive of pneumonia and treated with cefdinir x7 days along with benzonatate. Today she notes minimal improvement and has now developed pleuritic chest pain bilaterally. She denies fever chills. she has been using her albuterol b.i.d. and was previously prescribed Symbicort however had discontinued this. She reports difficulty expectorating and has tried Mucinex in the past but cannot tolerate. [facility] Medical History Allergies Asthma Bronchitis Ingrown left greater toenail Acute bronchitis Left leg numbness Chronic restrictive lung disease Asthma-COPD overlap syndrome Chronic allergic rhinitis Palpitation SARS-CoV-2 positive Generalized anxiety disorder Allergy to vaccine Low back pain Gallbladder polyp Closed left clavicular fracture History of miscarriage Temporal lobe epilepsy Hypercholesterolemia Fibromyalgia Migraine Vitamin D deficiency Bile salt-induced diarrhea Insomnia GERD (gastroesophageal reflux disease) Surgical History History of cholecystectomy Family History Father Cancer Mother CVD (cerebrovascular disease) Sister Breast cancer Family/Other Brain cancer Paternal Uncle Colon cancer Paternal Grandmother Stomach cancer Other Mental health disorder Social History (Updated 02/03/24 @ 09:38 by Kathe Blue LPN) Housing: Apartment Alcohol intake: never Patient Tobacco Use Status: Former Tobacco user Tobacco use type: Cigarette Years Smoked: 1 pack per week stopped 2021 e-Cigarette/Vaping Use: Never Used Second Hand Smoke Exposure: No service: No Current occupational status: unemployed Gender identity: Female Cognitive needs: No Hearing needs: No Vision needs: Yes Review of Systems Const Denies chills, Denies excessive sweating, Denies fever(s), Denies headache(s) and Denies night sweats Eyes Denies dry eyes, Denies irritation and Denies itchy eyes ENT Reports Normal hearing present, Denies headache(s), Denies nasal congestion, Denies nasal discharge, Denies post nasal drip and Denies sore throat Card Denies chest pain, Denies chest pain at rest, Denies chest pain with activity, Denies claudication, Denies leg edema, Denies orthopnea and Denies paroxysmal nocturnal dyspnea Resp Denies cough, Denies excessive phlegm production and Denies stridor Musc Denies myalgias Neuro Reports Normal hearing present and Denies headache(s) Endo Denies excessive sweating Jonnathan/Lymph Denies lymphadenopathy Aller/Immun Denies itchy eyes and Denies seasonal rhinorrhea Physical Exam Vital Signs: Last Vital Signs Pulse 95 02/03/24 09:27 BP 132/68 02/03/24 09:27 Pulse Ox 97 02/03/24 09:27 Oxygen Delivery Method Room Air 02/03/24 09:27 BMI result Body Mass Index 29.5 Const General: cooperative, healthy appearing, comfortable, no acute distress, well developed and alert Orientation/consciousness: patient oriented x3 Limitations: no limitations HEENT Head: Yes normal to inspection, Yes normocephalic and Yes atraumatic Ears: hearing grossly normal bilaterally and external ears normal Eyes General: appearance normal, both eyes and all related structures Eyelids: Yes eyelids normal Sclerae: sclerae normal EOM: EOMs intact bilaterally Neck Neck: Yes normal visual inspection and Yes no lymphadenopathy Lymphatic: no lymphadenopathy noted Chest Chest palpation & inspection: normal inspection of the chest Resp Other: lung sounds diminished with bibasilar crackles, no wheezing, rhonchi appreciated. worsening cough duoneb, improved air movement bilaterally Effort & Inspection: normal respiratory effort, able to speak in complete sentences, no audible wheezes, no stridor, not tachypneic, no tripod positioning and no use of accessory muscles Cardio Jugular venous distension: no JVD Rate: regular rate Rhythm: regular rhythm Skin Other: warm, dry General skin exam: no rashes or lesions noted Neuro General: patient oriented x3 Cranial nerves: Yes Normal hearing present Cognition (Neuro): normal cognition Gait exam (Neuro): Normal gait present Extrem General: Yes normal to inspection, Yes capillary refill normal, Yes no clubbing, cyanosis or edema and Yes no pedal edema Psych Appearance: grossly normal and well kempt Speech and movement: Normal speech and movement present and Clear speech present Affect: normal affect Attitude: cooperative Thought process: Normal thought process present Thought content: Normal thought content present Insight: Good insight present (Psych) Judgement: Good judgement present (Psych) Office Procedures Nebulizer Treatment Nebulizer Treatment 37802-[id number]/MDI RX initial, or Nebulizer Subsequent Treatment Office Meds ipratropium 0.5 mg-albuterol 3 mg (2.5 mg base)/3 mL nebulization ailynn Performing Provider: Zulma Bolden NP Performing Location: [facility]ology [facility] Administered by: Kathe Blue LPN on 02/03/24 10:35 Dose Route Admin Location Dispensed Lot Number Expiration Date [facility] [employer] 3 mL inhalation 3 mL [id number] 05/17/25 5841-4301-38 [place] [employer] Assessment & Plan Assessment & Plan (1) Pneumonia: Code(s): J18.9 - Pneumonia, unspecified organism (2) Asthma-COPD overlap syndrome: Code(s): J44.89 - Other specified chronic obstructive pulmonary disease Plan Zoila presents with persistent symptoms of chest congestion and cough, despi te doxycycline and cefdinir. Chest x-ray revealed right middle lobe and left lower lobe opacities suggestive of pneumonia. Patient with allergies to penicillin as well as Levaquin, will send in Bactrim. Encouraged patient to use probiotics with continued antibiotic use. She is requesting fluconazole as she is prone to yeast infections and has tolerated in the past. She also noted worsening pleuritic pain, will send for chest x-ray today. Patient with difficulties expectorating, if no better with Bactrim, will consider bronchoscopy with Dr. Arango. Will send flutter valve and encouraged frequent deep breathing and coughing. Advised patient to restart Symbicort regimen and continue albuterol neb. No wheezing appreciated on exam, will hold off on prednisone at this time. Patient is aware to call office if symptoms do not improve in the next few days or seek urgent care if symptoms are worsening. All questions were answered and patient is in agreement of plan. Will follow-up with Dr. Arango for regularly scheduled appointment. Orders: Orders AMB Nebulizer Treatment Today J44.89 - Other specified chronic obstructive pulmonary disease XR chest 2V Today Z87.01 - Personal history of pneumonia (recurrent) Medications: New sulfamethoxazole-trimethoprim 800-160 mg (Bactrim DS) 1 tab PO BID 14 tabs 0RF fluconazole take second dose if no improvement 150 mg PO Q3D 2 tabs 0RF Refilled benzonatate 100 mg PO BID 7 days PRN 14 caps 0RF cough R05.9 - Cough, unspecified budesonide-formoterol 160-4.5 mcg/actuation (Symbicort) 2 puffs inhalation Q12H 10.2 grams 1RF J40 - Bronchitis, not specified as acute or chronic Coding Level of Care Code Est Pt Level 4 (56668) Diagnoses Pneumonia J18.9 Asthma-COPD overlap syndrome J44.89 CPT Codes Nebulizer Treatment - Nebulizer Treatment, initial or subsequent: 30438- Nebulizer/MDI RX initial, or Nebulizer Subsequent Treatment ([id number])
== END 2024-02-03 10:45 | disposition home or self-care (01) ==
PROVIDERS: PCP Internal Medicine; Visit Provider Nurse Practitioner Family
DX: J18.9 Pneumonia, unspecified organism (principal); J44.89 Other specified chronic obstructive pulmonary disease
CPT/HCPCS: 99214

== ENCOUNTER 2024-02-18 07:36 | Outpatient (REF) | payer MEDICARE, MEDICAID, SELFPAY ==
--- NOTE | ~2024-02-18 | CT_ITS ---
EXAMINATION: CT CHEST WITHOUT CONTRAST CLINICAL INFORMATION: Other disorders of lung. COMPARISON: Chest radiograph 02/03/2024, CT of the abdomen and pelvis 08/09/2023. TECHNIQUE: Multidetector volumetric CT imaging of the chest was done. Axial MIP volume rendering provided. Sagittal and coronal reformatted images were obtained. This CT examination was performed using dose optimization techniques as appropriate, variously including the following: *Automated exposure control *Adjustment of mA and/or kV according to patient size (this includes techniques or standardized protocols for targeted exams where dose is matched to indication/reason for exam; i.e. extremities or head) *Use of iterative reconstruction technique DLP: 177.00 mGy-cm. FINDINGS: LUNGS: There is mild bronchial thickening. The lungs are clear with no evidence of inflammation or nodules. No significant interstitial lung disease is seen. MEDIASTINUM: The mediastinum is normal. CORONARY ARTERY CALCIFICATION: Minimal. PLEURA: There is no pleural effusion. No pleural mass or thickening. AXILLA: No lymphadenopathy. UPPER ABDOMEN: Status post cholecystectomy. OSSEOUS STRUCTURES: Unremarkable. CT/CT chest wo IV con IMPRESSION: Mild bronchial thickening. No evidence of interstitial lung disease. Fleischner guidelines were followed.
== END 2024-02-18 07:37 | disposition home or self-care (01) ==
LOC: HO.CT 07:36
PROVIDERS: PCP Internal Medicine; Visit Provider Hospitalist
DX: J98.4 Other disorders of lung (principal); J40 Bronchitis, not specified as acute or chronic; J45.41 Moderate persistent asthma with (acute) exacerbation; J44.89 Other specified chronic obstructive pulmonary disease; J30.9 Allergic rhinitis, unspecified
CPT/HCPCS: 71250; 94640; 96372; 99212; J2919; J2930

== ENCOUNTER 2024-02-18 10:12 | Outpatient (AMB) | payer MEDICARE, MEDICAID, SELFPAY ==
[2024-02-18 10:18] VITALS: BP 110/60; PULSE 78; O2SAT 97; BMI 29.5
--- NOTE | 2024-02-18 10:18 | A.OFFVIS_ITS ---
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 Allergies Clindamycin HCl Allergy (Unknown, Verified 02/18/24 10:20) esophagus, trouble swallowing gabapentin Allergy (Unknown, Verified 02/18/24 10:20) Unknown ibuprofen Allergy (Unknown, Verified 02/18/24 10:20) nausea metoclopramide [Reglan] Allergy (Unknown, Verified 02/18/24 10:20) jittery NSAIDS (Non-Steroidal Anti-Inflamma [NSAIDS (NON-STEROIDAL ANTI-INFLAMMA] Allergy (Unknown, Verified 02/18/24 10:20) STOMACH UPSET oxycodone [OXYCODONE] Allergy (Unknown, Verified 02/18/24 10:20) palpitations, hyper penicillin V Allergy (Unknown, Verified 02/18/24 10:20) rash ?, hives Penicillins Allergy (Unknown, Verified 02/18/24 10:20) HIVES pseudoephedrine [Sudafed] Allergy (Unknown, Verified 02/18/24 10:20) Unknown tramadol [TRAMADOL] Allergy (Unknown, Verified 02/18/24 10:20) palpitations, hyper vilazodone [Viibryd] Allergy (Unknown, Verified 02/18/24 10:20) dry mouth and tremors zolpidem [Ambien] Allergy (Unknown, Verified 02/18/24 10:20) Unknown bupropion [BUPROPION] Adverse Reaction (Intermediate, Verified 02/18/24 10:20) HTN, BLURRY VISION quetiapine [From Seroquel] Adverse Reaction (Intermediate, Verified 02/18/24 10:20) patient states levofloxacin Adverse Reaction (Unknown, Verified 02/18/24 10:20) weakness, nausea/vomiting HPI HPI Comments History of Present Illness Details The patient is a 53 year woman with a known history of asthma who has been developing worsening respiratory symptoms. She has had multiple evaluations in urgent care and also with her primary care doctor due to worsening productive cough and bronchitis. The patient responds to antibiotics and prednisone fairly well. But then when she completes the course her symptoms again recurred. The recently she was started on Symbicort which is a good inhaler. Also start the productive cough with green sputum. She has denies any allergy testing in the past. The patient denies any significant exposures either. The patient did undergo pulmonary function studies recently. We did personally review the results. Of has significant small airways disease suggestive of her asthma but also has moderate degree of restrictive she in the lung volumes which is unclear in etiology. She did have a chest x-ray but not diagnostic. Therefore I will request a CT scan of the chest to better assess her symptoms and her very abnormal PFTs. The patient will also undergo blood work to further address any triggers or precipitants of her respiratory symptoms. 02/18/2024 the patient is here for sick vi sit. She is having worsening respiratory symptoms for the last 2 weeks. She has significant chest tightness and wheezing. She went to [facility] what she was evaluated for sick visit and was given a course of antibiotics and prednisone. Initially felt better but then when she prednisone stopped her symptoms we occur. The patient also had a chest x-ray in urgent care. She was told she had pneumonia. There she was given additional antibiotics. The patient continues have significant cough at times it is nonproductive but she has been able to expectorate some phlegm specially after her nebulized treatments. Sometimes she chokes up the phlegm. She did have a CT scan of the chest that we personally reviewed. It appears she has significant mosaic pattern suggesting significant air trapping consistent with an asthma flare-up. In the office she does have significant bronchospastic coughing very diminished breath sounds. She was given 2 DuoNeb treatments with partial improvement and also given Solu-Medrol. She is going to need to go on another course of prednisone taper and also antibiotics. The patient will monitor closely symptoms. If she has no better she will call us again. Otherwise will follow-up in 4-6 weeks. [facility] Medical History (Updated 02/18/24 @ 20:56 by Dustin Arango MD) Asthma Allergies Bronchitis Ingrown left greater toenail Acute bronchitis Left leg numbness Chronic restrictive lung disease Asthma-COPD overlap syndrome Chronic allergic rhinitis Palpitation SARS-CoV-2 positive Generalized anxiety disorder Allergy to vaccine Low back pain Gallbladder polyp Closed left clavicular fracture History of miscarriage Temporal lobe epilepsy Hypercholesterolemia Fibromyalgia Migraine Vitamin D deficiency Bile salt-induced diarrhea Insomnia GERD (gastroesophageal reflux disease) Surgical History History of cholecystectomy Family History Father Cancer Mother CVD (cerebrovascular disease) Sister Breast cancer Family/Other Brain cancer Paternal Uncle Colon cancer Paternal Grandmother Stomach cancer Other Mental health disorder Social History (Updated 02/03/24 @ 09:38 by Kathe Blue LPN) Housing: Apartment Alcohol intake: never Patient Tobacco Use Status: Former Tobacco user Tobacco use type: Cigarette Years Smoked: 1 pack per week stopped 2021 e-Cigarette/Vaping Use: Never Used Second Hand Smoke Exposure: No service: No Current occupational status: unemployed Gender identity: Female Cognitive needs: No Hearing needs: No Vision needs: Yes Review of Systems Const Denies chills, Denies excessive sweating, Denies fever(s), Denies headache(s) and Denies night sweats Eyes Denies dry eyes, Denies irritation and Denies itchy eyes ENT Reports Normal hearing present, Denies headache(s), Denies nasal congestion, Denies nasal discharge, Denies post nasal drip and Denies sore throat Card Denies chest pain, Denies chest pain at rest, Denies chest pain with activity, Denies claudication, Denies leg edema, Reports dyspnea on exertion, Denies orthopnea and Denies paroxysmal nocturnal dyspnea Resp Reports cough, Denies excessive phlegm production, Reports dyspnea on exertion, Denies stridor and Reports wheezing Musc Denies myalgias Neuro Reports Normal hearing present, Denies confusion and Denies headache(s) Psych Denies confusion Endo Denies excessive sweating Jonnathan/Lymph Denies lymphadenopathy Aller/Immun Denies itchy eyes, Denies seasonal rhinorrhea and Reports wheezing Physical Exam Vital Signs: Last Vital Signs Pulse 78 02/18/24 10:18 BP 110/60 02/18/24 10:18 Pulse Ox 97 02/18/24 10:18 Oxygen Delivery Method Room Air 02/18/24 10:18 BMI result Body Mass Index 29.5 Const General: No confusion Orientation/consciousness: No confusion HEENT Head: Yes normocephalic Neck Neck: Yes supple Chest Chest palpation & inspection: normal inspection of the chest Resp Effort & Inspection: normal respiratory effort, Actively coughing Quality: productive and prolonged expiratory phase Auscultation: wheezes and diminished lung sounds Cardio Rate: regular rate Rhythm: regular rhythm Heart sounds: S1 normal heart sound present and S2 normal heart sound present GI Palpation (GI): Soft to palpation Skin General skin exam: no rashes or lesions noted Neuro General: No confusion Cranial nerves: Yes Normal hearing present Extrem General: Yes no clubbing, cyanosis or edema Office Procedures Nebulizer Treatment Nebulizer Treatment [id number]/MDI RX initial, or Nebulizer Subsequent Treatment Office Meds methylprednisolone sod suc(PF) 125 mg/2 mL solution for injection Performing Provider: Dustin Arango MD Performing Location: [facility] [place] Pulmonology Services Administered by: Tona Dupree LPN on 02/18/24 10:42 Dose Route Admin Location Dispensed Lot Number Expiration Date [employer] 125 mg IM R buttock 2 mL [id number] 11/17/25 2398-6711-41 [employer] ipratropium 0.5 mg-albuterol 3 mg (2.5 mg base)/3 mL nebulization soln Performing Provider: Dustin Arango MD Performing Location: [facility] [place] Pulmonology Services Administered by: Tona Dupree LPN on 02/18/24 10:42 Dose Route Admin Location Dispensed Lot Number Expiration Date [employer] V[employer] 3 mL inhalation 3 mL [id number] 09/17/25 85453-761-29 [employer] Assessment & Plan Assessment & Plan (1) Asthma: Code(s): J45.909 - Unspecified asthma, uncomplicated Qualifiers: Asthma severity: moderate Asthma persistence: persistent Asthma complication type: with acute exacerbation Qualified Code(s): J45.41 - Moderate persistent asthma with (acute) exacerbation (2) Bronchitis: Code(s): J40 - Bronchitis, not specified as acute or chronic (3) Asthma-COPD overlap syndrome: Code(s): J44.89 - Other specified chronic obstructive pulmonary disease (4) Chronic allergic rhinitis: Code(s): J30.9 - Allergic rhinitis, unspecified (5) Chronic restrictive lung disease: Code(s): J98.4 - Other disorders of lung Plan Duoneb x 2 Solumedrol 125mg IM x 1 Start Doxycycline start Prednisone taper cough medicine continue symbicort JUDE as needed F/U 6-8 weeks Orders: Orders AMB Nebulizer Treatment Today J44.89 - Other specified chronic obstructive pulmonary disease AMB Methylprednisolone Injection Today J44.89 - Other specified chronic obstructive pulmonary disease Medications: New doxycycline monohydrate 100 mg PO BID 14 days 28 tabs 0RF prednisone PO daily; Take 6 tabs daily x 3 days, then 5 tabs x 3 days, then 4 tabs x 3 days, then 3 tabs x 3 days, then 2 tabs daily x 3 days, then 1 tab x 3 days to complete. 18 days 63 tabs 0RF codeine-guaifenesin 10-100 mg/5 mL 10 mL PO Q6H 10 days PRN 300 mL 0RF cough Coding Level of Care Code Est Pt Level 4 (98181) Diagnoses Moderate persistent asthma with acute exacerbation J45.41 Asthma severity: moderate Asthma persistence: persistent Asthma complication type: with acute exacerbation Bronchitis J40 Asthma-COPD overlap syndrome J44.89 Chronic allergic rhinitis J30.9 Chronic restrictive lung disease J98.4 CPT Codes Nebulizer Treatment - Nebulizer Treatment, initial or subsequent: 79735- Nebulizer/MDI RX initial, or Nebulizer Subsequent Treatment ([id number]) Time Spent (min) 18
== END 2024-02-18 11:02 | disposition home or self-care (01) ==
PROVIDERS: PCP Internal Medicine; Visit Provider Hospitalist
DX: J45.41 Moderate persistent asthma with (acute) exacerbation (principal); J40 Bronchitis, not specified as acute or chronic; J44.89 Other specified chronic obstructive pulmonary disease; J30.9 Allergic rhinitis, unspecified; J98.4 Other disorders of lung
CPT/HCPCS: 99214

== ENCOUNTER 2024-02-25 09:31 | Outpatient (AMB) | payer MEDICARE, MEDICAID, SELFPAY ==
[2024-02-25 09:37] VITALS: BP 126/88; PULSE 79; O2SAT 94; BMI 28.8
--- NOTE | 2024-02-25 09:37 | A.OFFPC_ITS ---
Vital Signs 04 09:37 Height 5 ft 4 in Weight 168 lb BMI 28.8 BP 126/88 Blood Pressure Location Lt brachial Position Sitting Pulse 79 Pulse Source Pulse Oximeter Pulse Oximetry (%) 94 Oxygen Delivery Method Room Air Intake Visit Reasons: Hypercholesterolemia, asthma COPD overlap Allergies Clindamycin HCl Allergy (Unknown, Verified 02/25/24 09:51) esophagus, trouble swallowing gabapentin Allergy (Unknown, Verified 02/25/24 09:51) Unknown ibuprofen Allergy (Unknown, Verified 02/25/24 09:51) nausea metoclopramide [Reglan] Allergy (Unknown, Verified 02/25/24 09:51) jittery NSAIDS (Non-Steroidal Anti-Inflamma [NSAIDS (NON-STEROIDAL ANTI-INFLAMMA] Allergy (Unknown, Verified 02/25/24 09:51) STOMACH UPSET oxycodone [OXYCODONE] Allergy (Unknown, Verified 02/25/24 09:51) palpitations, hyper penicillin V Allergy (Unknown, Verified 02/25/24 09:51) rash ?, hives Penicillins Allergy (Unknown, Verified 02/25/24 09:51) HIVES pseudoephedrine [Sudafed] Allergy (Unknown, Verified 02/25/24 09:51) Unknown tramadol [TRAMADOL] Allergy (Unknown, Verified 02/25/24 09:51) palpitations, hyper vilazodone [Viibryd] Allergy (Unknown, Verified 02/25/24 09:51) dry mouth and tremors zolpidem [Ambien] Allergy (Unknown, Verified 02/25/24 09:51) Unknown bupropion [BUPROPION] Adverse Reaction (Intermediate, Verified 02/25/24 09:51) HTN, BLURRY VISION quetiapine [From Seroquel] Adverse Reaction (Intermediate, Verified 02/25/24 09:51) patient states levofloxacin Adverse Reaction (Unknown, Verified 02/25/24 09:51) weakness, nausea/vomiting Tobacco use date assessed: 11/26/23 Dental Screening Dental Screen Date: 02/25/24 Did you have a dental visit in the last 12 months?: Yes Did you have a dental problem in the last 6 months where you did not have access to dental care?: No Was dental information given to patient?: Patient has dentist HPI Hypercholesterolemia, asthma COPD overlap HPI Details 53-year-old overweight female with an as thma COPD overlap syndrome GERD hypercholesterolemia recurrent major depression coming in for follow-up. Noted to have an elevated blood pressure the last time. Last seen December 2023. Patient's mammogram is up-to-date. Review of the notes recently seen by pulmonology patient has been having intermittent respiratory symptoms went to the Urgent [facility] was treated with antibiotics and prednisone CT scan showing mosaic pattern suggesting significant air trapping consistent with an asthma flare-up prescribed Solu-Medrol and doxycycline and another prednisone taper. Advised to continue with Symbicort. [facility] Medical History (Updated 02/25/24 @ 10:15 by April Vizcaino MD) Asthma Allergies Bronchitis Ingrown left greater toenail Acute bronchitis Left leg numbness Chronic restrictive lung disease Asthma-COPD overlap syndrome Chronic allergic rhinitis Palpitation SARS-CoV-2 positive Generalized anxiety disorder Allergy to vaccine Low back pain Gallbladder polyp Closed left clavicular fracture History of miscarriage Temporal lobe epilepsy Hypercholesterolemia Fibromyalgia Migraine Vitamin D deficiency Bile salt-induced diarrhea Insomnia GERD (gastroesophageal reflux disease) Surgical History History of cholecystectomy Family History Father Cancer Mother CVD (cerebrovascular disease) Sister Breast cancer Family/Other Brain cancer Paternal Uncle Colon cancer Paternal Grandmother Stomach cancer Other Mental health disorder Social History (Updated 02/03/24 @ 09:38 by Kathe Blue LPN) Housing: Apartment Alcohol intake: never Patient Tobacco Use Status: Former Tobacco user Tobacco use type: Cigarette Years Smoked: 1 pack per week stopped 2021 e-Cigarette/Vaping Use: Never Used Second Hand Smoke Exposure: No service: No Current occupational status: unemployed Gender identity: Female Cognitive needs: No Hearing needs: No Vision needs: Yes Questionnaire PHQ-9 Over the last 2 weeks, how often have you been bothered by any of the following problems? 1. Little interest or pleasure in doing things: several days 2. Feeling down, depressed, or hopeless: several days 3. Trouble falling or staying asleep, or sleeping too much: not at all 4. Feeling tired or having little energy: several days 5. Poor appetite or overeating: several days 6. Feeling bad about yourself - or that you are a failure or have let yourself or your family down: several days 7. Trouble concentrating on things, such as reading the newspaper or watching television: not at all 8. Moving or speaking so slowly that other people could have noticed. Or the opposite - being so fidgety or restless that you have been moving around a lot more than usual: several days 9. Thoughts that you would be better off or of hurting yourself in some way: several days Total score: 7 Depression Screening Interpretation: Positive Depression Screening Done: Yes 16099 - PHQ-9 Billing: Yes Source: Developed by Drs. Fady Paredes, Arlen Stewart, Abhi Morris and colleagues, with an educational carina from [employer]. Thrive Questionnaire Date Thrive assessed: 02/25/24 I am a: Patient What is your living situation today?: I have a steady place to live Within the past 12 months, did the food you bought not last and you didn't have the money to get more?: Never true Within the past 12 months, did you worry whether your food would run out before you got money to buy more?: Never true Do you have trouble paying for medicines?: No Do you have trouble getting transportation to medical appointments?: No Do you have trouble paying your heating and electricity bill?: No Do you have trouble taking care of your child, family member or friend?: No Do you have trouble with day-to-day activities such as bathing, preparing meals, shopping, managing finances, etc.?: No Are you currently unemployed and looking for a job?: No Are you interested in more education?: No Currently or been in a relationship where the following occur: no concerns reported THRIVE Score: 0 AUDIT C Alcohol Use Questionnaire (AUDIT-C) 1. How often do you have a drink containing alcohol?: Never 2. How many drinks containing alcohol do you have on a typical day when you are drinking?: 1 or 2 (none) 3. How often do you have six or more drinks on one occasion?: Never Total Score: 0 Score Reviewed/Action Taken: No MONY-7 AMB Questionnaire MONY-7 Date MONY - 7 assessed: 02/25/24 Feeling nervous, anxious, or on edge: 0 = Not at all Not being able to stop or control worryin = Not at all Worrying too much about different things: 0 = Not at all Trouble relaxin = Not at all Being so restless that it is hard to sit still: 0 = Not at all Becoming easily annoyed or irritable: 0 = Not at all Feeling afraid as if something awful might happen: 0 = Not at all Total MONY-7 score (0-4 normal; 5-9 mild; 10-14 moderate; 15-21 severe): 0 Source: Developed by Drs. Fady Paredes, Arlen Stewart, Abhi Morris and colleagues, with an educational carina from [employer]. Physical exam (Primary Care) Vital Signs: Last Vital Signs Pulse 79 02/25/24 09:37 BP 126/88 02/25/24 09:37 Pulse Ox 94 02/25/24 09:37 Oxygen Delivery Method Room Air 02/25/24 09:37 BMI result Body Mass Index 28.8 Tobacco/Smoking Status: Tobacco use Status Tobacco use date assessed 11/26/23 02/25/24 09:40 Patient Tobacco Use Status Former Tobacco user 02/25/24 09:40 Tobacco use type Cigarette 02/25/24 09:40 e-Cigarette/Vaping Use Never Used 02/25/24 09:40 PHQ-9: PHQ-9 Score PHQ-9: Total score 7 02/25/24 09:55 Depression Screening Interpretation: Positive Thrive Assessment: Date of Thrive Assessment Date Thrive assessed 02/25/24 02/25/24 09:40 Currently or been in a relationship where the following occur: no concerns reported Const General: alert; No acute distress Eyes Conjunctivae: conjunctivae normal Resp Auscultation: clear to auscultation bilaterally Cardio Rate: regular rate Rhythm: regular rhythm GI Inspection: Yes normal to inspection Extrem General: Yes normal to inspection and No edema Assessment and Plan Assessment & Plan (1) Asthma-COPD overlap syndrome: Code(s): J44.89 - Other specified chronic obstructive pulmonary disease Plan: Patient is being followed up by Pulmonary on Symbicort and short-acting beta agonist but with the exacerbation right now was placed on doxycycline and steroids. (2) Blood pressure elevated without history of HTN: Code(s): R03.0 - Elevated blood-pressure reading, without diagnosis of hypertension Plan: Blood pressure is presently normal. Continued to be monitored (3) Colon cancer screening: Code(s): Z12.11 - Encounter for screening for malignant neoplasm of colon Plan: Colon cancer screening reminded. (4) Generalized anxiety disorder: Comment: Panic disorder conversion schizotypal personality disorder depression Dr. Hector Bhandari [phone] [facility], [facility] Code(s): F41.1 - Generalized anxiety disorder Plan: Continue with psychiatric counseling and medications. (5) Hypercholesterolemia: Code(s): E78.00 - Pure hypercholesterolemia, unspecified Plan: Avoid fried foods, chicken skin, eggs, butter margarine, pastries and meat. Be it pork or beef they have a lot of cholesterol LDL goal of less than 130 and triglyceride of less than 150. On simvastatin 10 mg once a day (6) Dysphagia: Code(s): R13.10 - Dysphagia, unspecified (7) GERD (gastroesophageal reflux disease): Code(s): K21.9 - Gastro-esophageal reflux disease without esophagitis Qualifiers: Esophagitis presence: without esophagitis Qualified Code(s): K21.9 - Gastro-esophageal reflux disease without esophagitis Orders: Orders FL barium swallow Today R13.10 - Dysphagia, unspecified Thyroid Stimulating Hormone Today E78.00 - Pure hypercholesterolemia, unspecified Hemoglobin A1c Today E78.00 - Pure hypercholesterolemia, unspecified FL upper GI series Today R13.10 - Dysphagia, unspecified Complete Blood Count Auto Diff Today E78.00 - Pure hypercholesterolemia, unspecified Free T4 (Free Thyroxine) Today E78.00 - Pure hypercholesterolemia, unspecified Coding Level of Care Code Est Pt Level 4 (08533) Diagnoses Asthma-COPD overlap syndrome J44.89 Blood pressure elevated without history of HTN R03.0 Colon cancer screening Z12.11 Generalized anxiety disorder F41.1 Hypercholesterolemia E78.00 Dysphagia R13.10 Gastroesophageal reflux disease without esophagitis K21.9 Esophagitis presence: without esophagitis
== END 2024-02-25 10:25 | disposition home or self-care (01) ==
PROVIDERS: PCP Internal Medicine; Visit Provider Internal Medicine
DX: J44.89 Other specified chronic obstructive pulmonary disease (principal); R03.0 Elevated blood-pressure reading, without diagnosis of hypertension; Z12.11 Encounter for screening for malignant neoplasm of colon; F41.1 Generalized anxiety disorder; E78.00 Pure hypercholesterolemia, unspecified; R13.10 Dysphagia, unspecified; K21.9 Gastro-esophageal reflux disease without esophagitis
CPT/HCPCS: 99214

== ENCOUNTER 2024-03-31 11:00 | Outpatient (AMB) | payer MEDICARE, MEDICAID, SELFPAY ==
[2024-03-31 11:11] VITALS: PULSE 88; O2SAT 97; BMI 29.2
--- NOTE | 2024-03-31 11:11 | MHC.OFFVIS ---
Vital Signs 03/31/24 11:11 Height 5 ft 4 in Weight 170 lb BMI 29.2 Pulse 88 Pulse Source Pulse Oximeter Pulse Oximetry (%) 97 Oxygen Delivery Method Room Air Intake Visit Reasons: Asthma Inventory Accountant Required: No Allergies Clindamycin HCl Allergy (Unknown, Verified 03/31/24 11:12) esophagus, trouble swallowing gabapentin Allergy (Unknown, Verified 03/31/24 11:12) Unknown ibuprofen Allergy (Unknown, Verified 03/31/24 11:12) nausea metoclopramide [Reglan] Allergy (Unknown, Verified 03/31/24 11:12) jittery NSAIDS (Non-Steroidal Anti-Inflamma [NSAIDS (NON-STEROIDAL ANTI-INFLAMMA] Allergy (Unknown, Verified 03/31/24 11:12) STOMACH UPSET oxycodone [OXYCODONE] Allergy (Unknown, Verified 03/31/24 11:12) palpitations, hyper penicillin V Allergy (Unknown, Verified 03/31/24 11:12) rash ?, hives Penicillins Allergy (Unknown, Verified 03/31/24 11:12) HIVES pseudoephedrine [Sudafed] Allergy (Unknown, Verified 03/31/24 11:12) Unknown tramadol [TRAMADOL] Allergy (Unknown, Verified 03/31/24 11:12) palpitations, hyper vilazodone [Viibryd] Allergy (Unknown, Verified 03/31/24 11:12) dry mouth and tremors zolpidem [Ambien] Allergy (Unknown, Verified 03/31/24 11:12) Unknown bupropion [BUPROPION] Adverse Reaction (Intermediate, Verified 03/31/24 11:12) HTN, BLURRY VISION quetiapine [From Seroquel] Adverse Reaction (Intermediate, Verified 03/31/24 11:12) patient states levofloxacin Adverse Reaction (Unknown, Verified 03/31/24 11:12) weakness, nausea/vomiting HPI Comments Details: The patient is a 53 year woman with a known history of asthma who has been developing worsening respiratory symptoms. She has had multiple evaluations in urgent care and also with her primary care doctor due to worsening productive cough and bronchitis. The patient responds to antibiotics and prednisone fairly well. But then when she completes the course her symptoms again recurred. The recently she was started on Symbicort which is a good inhaler. Also start the productive cough with green sputum. She has denies any allergy testing in the past. The patient denies any significant exposures either. The patient did undergo pulmonary function studies recently. We did personally review the results. Of has significant small airways disease suggestive of her asthma but also has moderate degree of restrictive she in the lung volumes which is unclear in etiology. She did have a chest x-ray but not diagnostic. Therefore I will request a CT scan of the chest to better assess her symptoms and her very abnormal PFTs. The patient will also undergo blood work to further address any triggers or precipitants of her respiratory symptoms. 02/18/2024 the patient is here for sick visit. She is having worsening respiratory symptoms for the last 2 weeks. She has significant chest tightness and wheezing. She went to [facility] what she was evaluated for sick visit and was given a course of antibiotics and prednisone. Initially felt better but then when she prednisone stopped her symptoms we occur. The patient also had a chest x-ray in urgent care. She was told she had pneumonia. There she was given additional antibiotics. The patient continues have significant cough at times it is nonproductive but she has been able to expectorate some phlegm specially after her nebulized treatments. Sometimes she chokes up the phlegm. She did have a CT scan of the chest that we personally reviewed. It appears she has significant mosaic pattern suggesting significant air trapping consistent with an asthma flare-up. In the office she does have significant bronchospastic coughing very diminished breath sounds. She was given 2 DuoNeb treatments with partial improvement and also given Solu-Medrol. She is going to need to go on another course of prednisone taper and also antibiotics. The patient will monitor closely symptoms. If she has no better she will call us again. Otherwise will follow-up in 4-6 weeks. 03/31/2024 the patient is here for a pulmonary follow-up visit. She is feeling better since the last time. She did require Solu-Medrol and a long course of prednisone. She also required antibiotics. Right now she is doing better although she still having wheezing on a regular basis. She has more wheezing when she goes and takes a shower. Denies any mold exposure although she does not know if there is any water damage. The patient also has known significant allergies. We did check her allergies back in September and her IgE level is elevated 197. Eosinophils were stable. The patient is going to be maximizing her respiratory therapy by switching over from Symbicort to breztri. She also start Singulair. In the meantime with the elevated IgE her significant allergies she also will be a good candidate for Xolair. Will go ahead and request to see if we can get her activated on Xolair while we assess her response to Symbicort and Singulair. She continues have wheezing on examination. I do believe that biologic therapy will be the best approach for her. [facility] Medical History (Updated 03/31/24 @ 21:41 by Dustin Arango MD) Asthma Allergies Bronchitis Ingrown left greater toenail Acute bronchitis Left leg numbness Chronic restrictive lung disease Asthma-COPD overlap syndrome Chronic allergic rhinitis Palpitation SARS-CoV-2 positive Generalized anxiety disorder Allergy to vaccine Low back pain Gallbladder polyp Closed left clavicular fracture History of miscarriage Temporal lobe epilepsy Hypercholesterolemia Fibromyalgia Migraine Vitamin D deficiency Bile salt-induced diarrhea Insomnia GERD (gastroesophageal reflux disease) Surgical History History of cholecystectomy Family History Father Cancer Mother CVD (cerebrovascular disease) Sister Breast cancer Family/Other Brain cancer Paternal Uncle Colon cancer Paternal Grandmother Stomach cancer Other Mental health disorder Social History (Updated 02/03/24 @ 09:38 by Kathe Blue LPN) Housing: Apartment Alcohol intake: never Patient Tobacco Use Status: Former Tobacco user Tobacco use type: Cigarette Years Smoked: 1 pack per week stopped 2021 e-Cigarette/Vaping Use: Never Used Second Hand Smoke Exposure: No service: No Current occupational status: unemployed Gender identity: Female Cognitive needs: No Hearing needs: No Vision needs: Yes Review of Systems Const Denies chills, Denies excessive sweating, Denies fever(s), Denies headache(s) and Denies night sweats Eyes Denies dry eyes, Denies irritation and Denies itchy eyes ENT Reports Normal hearing present, Denies headache(s), Reports nasal congestion, Reports nasal discharge, Denies post nasal drip and Denies sore throat Card Denies chest pain, Denies chest pain at rest, Denies chest pain with activity, Denies claudication, Denies leg edema, Reports dyspnea on exertion, Denies orthopnea and Denies paroxysmal nocturnal dyspnea Resp Reports cough, Denies excessive phlegm production, Reports dyspnea on exertion, Denies stridor and Reports wheezing Musc Denies myalgias Neuro Reports Normal hearing present, Denies confusion and Denies headache(s) Psych Denies confusion Endo Denies excessive sweating Jonnathan/Lymph Denies lymphadenopathy Aller/Immun Denies itchy eyes, Denies seasonal rhinorrhea and Reports wheezing Physical Exam Vital Signs: Last Vital Signs Pulse 88 03/31/24 11:11 Pulse Ox 97 03/31/24 11:11 Oxygen Delivery Method Room Air 03/31/24 11:11 BMI result Body Mass Index 29.2 Const General: No confusion Orientation/consciousness: No confusion HEENT Head: Yes normocephalic Neck Neck: Yes supple Chest Chest palpation & inspection: normal inspection of the chest Resp Effort & Inspection: normal respiratory effort, Actively coughing Quality: productive and prolonged expiratory phase Auscultation: wheezes and diminished lung sounds Cardio Rate: regular rate Rhythm: regular rhythm Heart sounds: S1 normal heart sound present and S2 normal heart sound present GI Palpation (GI): Soft to palpation Skin General skin exam: no rashes or lesions noted Neuro General: No confusion Cranial nerves: Yes Normal hearing present Extrem General: Yes no clubbing, cyanosis or edema Assessment & Plan Assessment & Plan (1) Asthma: Code(s): J45.909 - Unspecified asthma, uncomplicated Category: Medical Qualifiers: Asthma complication type: uncomplicated Asthma persistence: persistent Asthma severity: moderate Qualified Code(s): J45.40 - Moderate persistent asthma, uncomplicated (2) Chronic allergic rhinitis: Code(s): J30.9 - Allergic rhinitis, unspecified Category: Medical (3) Chronic restrictive lung disease: Code(s): J98.4 - Other disorders of lung Category: Medical Plan start Breztri start singulair continue Zyrtec stop symbicort JUDE as needed barium swallow Will be a good candidate for Xolair based on her severe allergic asthma F/U 3-4 months Orders: Orders FL barium swallow Today K21.9 - Gastro-esophageal reflux disease without esophagitis Medications: New [id number] 160-9-4.8 mcg/actuation (Breztri Aerosphere) 2 inhalations inhalation BID 10.7 grams 11RF 30 days Coding Level of Care Code Est Pt Level 4 (12032) Diagnoses Moderate persistent asthma without complication J45.40 Asthma complication type: uncomplicated Asthma persistence: persistent Asthma severity: moderate Chronic allergic rhinitis J30.9 Chronic restrictive lung disease J98.4 Time Spent (min) 17
== END 2024-03-31 11:32 | disposition home or self-care (01) ==
PROVIDERS: PCP Internal Medicine; Visit Provider Hospitalist
DX: J45.40 Moderate persistent asthma, uncomplicated (principal); J30.9 Allergic rhinitis, unspecified; J98.4 Other disorders of lung
CPT/HCPCS: 99214

== ENCOUNTER → 2024-03-31 11:00 | Outpatient (BNVA) | payer MEDICARE, MEDICAID, SELFPAY | PROVIDERS: PCP Internal Medicine; Visit Provider Hospitalist | DX: J45.40 Moderate persistent asthma, uncomplicated (principal); J30.9 Allergic rhinitis, unspecified; J98.4 Other disorders of lung | CPT/HCPCS: 99212 ==

== ENCOUNTER 2024-04-20 09:03 | Outpatient (AMB) | payer MEDICARE, MEDICAID, SELFPAY ==
[2024-04-20 09:04] VITALS: BP 118/80; PULSE 105; O2SAT 96; BMI 28.7
--- NOTE | 2024-04-20 09:04 | A.OFFPC_ITS ---
Vital Signs 04/20/24 09:04 Height 5 ft 4 in Weight 167 lb 0.8 oz BMI 28.7 BP 118/80 Blood Pressure Location Lt brachial Position Sitting Pulse 105 H Pulse Source Pulse Oximeter Pulse Oximetry (%) 96 Oxygen Delivery Method Room Air Intake Visit Reasons: blood pressure elevation Morning Babysitter Required: No Allergies Clindamycin HCl Allergy (Unknown, Verified 04/20/24 09:18) esophagus, trouble swallowing gabapentin Allergy (Unknown, Verified 04/20/24 09:18) Unknown ibuprofen Allergy (Unknown, Verified 04/20/24 09:18) nausea metoclopramide [Reglan] Allergy (Unknown, Verified 04/20/24 09:18) jittery NSAIDS (Non-Steroidal Anti-Inflamma [NSAIDS (NON-STEROIDAL ANTI-INFLAMMA] Allergy (Unknown, Verified 04/20/24 09:18) STOMACH UPSET oxycodone [OXYCODONE] Allergy (Unknown, Verified 04/20/24 09:18) palpitations, hyper penicillin V Allergy (Unknown, Verified 04/20/24 09:18) rash ?, hives Penicillins Allergy (Unknown, Verified 04/20/24 09:18) HIVES pseudoephedrine [Sudafed] Allergy (Unknown, Verified 04/20/24 09:18) Unknown tramadol [TRAMADOL] Allergy (Unknown, Verified 04/20/24 09:18) palpitations, hyper vilazodone [Viibryd] Allergy (Unknown, Verified 04/20/24 09:18) dry mouth and tremors zolpidem [Ambien] Allergy (Unknown, Verified 04/20/24 09:18) Unknown bupropion [BUPROPION] Adverse Reaction (Intermediate, Verified 04/20/24 09:18) HTN, BLURRY VISION quetiapine [From Seroquel] Adverse Reaction (Intermediate, Verified 04/20/24 09:18) patient states levofloxacin Adverse Reaction (Unknown, Verified 04/20/24 09:18) weakness, nausea/vomiting Tobacco use date assessed: 04/20/24 Dental Screening Dental Screen Date: 02/25/24 HPI blood pressure elevation HPI Details 53-year-old overweight female with multi ple medical problems from GERD migraines recurrent major depression/generalized anxiety disorder recurrent respiratory infection with asthma coming in for follow-up . Patient has been seen by Pulmonary and has been placed on bretztri and has been scheduled to receive Xolair. Discussed about asthma treatment and allergy treatment. Otherwise blood pressure has been good has been eating better and keeping active. [facility] Medical History (Updated 03/31/24 @ 21:41 by Dustin Arango MD) Asthma Allergies Bronchitis Ingrown left greater toenail Acute bronchitis Left leg numbness Chronic restrictive lung disease Asthma-COPD overlap syndrome Chronic allergic rhinitis Palpitation SARS-CoV-2 positive Generalized anxiety disorder Allergy to vaccine Low back pain Gallbladder polyp Closed left clavicular fracture History of miscarriage Temporal lobe epilepsy Hypercholesterolemia Fibromyalgia Migraine Vitamin D deficiency Bile salt-induced diarrhea Insomnia GERD (gastroesophageal reflux disease) Surgical History History of cholecystectomy Family History Father Cancer Mother CVD (cerebrovascular disease) Sister Breast cancer Family/Other Brain cancer Paternal Uncle Colon cancer Paternal Grandmother Stomach cancer Other Mental health disorder Social History (Updated 02/03/24 @ 09:38 by Kathe Blue LPN) Housing: Apartment Alcohol intake: never Patient Tobacco Use Status: Former Tobacco user Tobacco use type: Cigarette Years Smoked: 1 pack per week stopped 2021 e-Cigarette/Vaping Use: Never Used Second Hand Smoke Exposure: No service: No Current occupational status: unemployed Gender identity: Female Cognitive needs: No Hearing needs: No Vision needs: Yes Questionnaire Thrive Questionnaire Date Thrive assessed: 02/25/24 AUDIT C Alcohol Use Questionnaire (AUDIT-C) 1. How often do you have a drink containing alcohol?: Never 2. How many drinks containing alcohol do you have on a typical day when you are drinking?: 1 or 2 (none) 3. How often do you have six or more drinks on one occasion?: Never Total Score: 0 Score Reviewed/Action Taken: No MONY-7 AMB Questionnaire MONY-7 Date MONY - 7 assessed: 02/25/24 Source: Developed by Drs. Fady Paredes, Arlen Stewart, Abhi Morris and colleagues, with an educational carina from [employer]. Physical exam (Primary Care) Vital Signs: Last Vital Signs Pulse 105 H 04/20/24 09:04 BP 118/80 04/20/24 09:04 Pulse Ox 96 04/20/24 09:04 Oxygen Delivery Method Room Air 04/20/24 09:04 BMI result Body Mass Index 28.7 Tobacco/Smoking Status: Tobacco use Status Tobacco use date assessed 04/20/24 04/20/24 09:09 Patient Tobacco Use Status Former Tobacco user 04/20/24 09:09 Tobacco use type Cigarette 04/20/24 09:09 e-Cigarette/Vaping Use Never Used 04/20/24 09:09 Thrive Assessment: Date of Thrive Assessment Date Thrive assessed 02/25/24 04/20/24 09:09 Const General: alert; No acute distress Eyes Conjunctivae: conjunctivae normal Resp Auscultation: clear to auscultation bilaterally Cardio Rate: regular rate Rhythm: regular rhythm GI Inspection: Yes normal to inspection Extrem General: Yes normal to inspection and No edema Assessment and Plan Assessment & Plan (1) Generalized anxiety disorder: Comment: Panic disorder conversion schizotypal personality disorder depression Dr. Hector Bahndari [phone] [facility] Code(s): F41.1 - Generalized anxiety disorder Plan: Continue follow-up with counseling and therapy (2) GERD (gastroesophageal reflux disease): Code(s): K21.9 - Gastro-esophageal reflux disease without esophagitis Qualifiers: Esophagitis presence: without esophagitis Qualified Code(s): K21.9 - Gastro-esophageal reflux disease without esophagitis Plan: Avoid the foods that causes that usually spicy foods, tomato products, juices, coffee, soda and foods that your sensitive to. After eating do not lie down, allow 3-4 hours before in lie down. And keep the head of bed above 30 degrees to avoid the acid from going up. (3) Hypercholesterolemia: Code(s): E78.00 - Pure hypercholesterolemia, unspecified Plan: Avoid fried foods, chicken skin, eggs, butter margarine, pastries and meat. Be it pork or beef they have a lot of cholesterol LDL goal of less than 130 and triglyceride of less than 150 on simvastatin 10 mg once a day (4) Asthma-COPD overlap syndrome: Code(s): J44.89 - Other specified chronic obstructive pulmonary disease Plan: Continue with the montelukast albuterol inhaler Elizabethztri and will be receiving Xolair soon Medications: Changed From clonazepam Psychiatry and Becky van marima walker therapist 1 mg PO BID PRN anxiety F41.1 - Generalized anxiety disorder To clonazepam Psychiatry and Becky juarez therapist 1 mg PO TID PRN 90 tabs 1RF anxiety 30 days F41.1 - Generalized anxiety disorder Coding Level of Care Code Est Pt Level 4 (31936) Complex EM visit Add On G2211 Diagnoses Generalized anxiety disorder F41.1 Gastroesophageal reflux disease without esophagitis K21.9 Esophagitis presence: without esophagitis Hypercholesterolemia E78.00 Asthma-COPD overlap syndrome J44.89
== END 2024-04-20 10:17 | disposition home or self-care (01) ==
PROVIDERS: PCP Internal Medicine; Visit Provider Internal Medicine
DX: F41.1 Generalized anxiety disorder (principal); K21.9 Gastro-esophageal reflux disease without esophagitis; E78.00 Pure hypercholesterolemia, unspecified; J44.89 Other specified chronic obstructive pulmonary disease
CPT/HCPCS: 99214; G2211

== ENCOUNTER 2024-04-24 07:31 | Outpatient (REF) | payer MEDICARE, MEDICAID, SELFPAY ==
--- NOTE | ~2024-04-24 | FL_ITS ---
EXAMINATION: XR FLUOROSCOPY UPPER GI WITH AIR CLINICAL INFORMATION: Dysphagia COMPARISON: None TECHNIQUE: Fluoroscopic air contrast upper GI examination was performed utilizing standard techniques with thin and thick barium and effervescent granules. Numerous spot images were obtained. FINDINGS: Lateral cine images of the oropharynx and hypopharynx demonstrate normal swallow mechanism with normal epiglottic inversion and soft palate elevation. Minimal laryngeal penetration was noted with thick barium. No glottic or subglottic aspiration identified. No nasopharyngeal reflux present. Hypopharyngeal structures appear normal without evidence of mass or diverticulum. There was no significant cricopharyngeal achalasia. Dual and single contrast images of the esophagus demonstrate normal caliber, contour, and mucosal pattern. No evidence of stricture, mass, or ulcerations identified. Esophageal peristalsis was mildly disorganized. A small type I hiatal hernia is present. No significant gastroesophageal reflux was seen during the course of the examination and on reflux views. Dual contrast and single contrast images of the stomach demonstrated a normal contour. The gastric rugal folds have a severely thickened appearance. No masses or ulcerations are seen. Contrast freely passed into the gastric antrum and duodenal bulb without delay. Single and air-contrast images of the duodenal bulb demonstrate no abnormality. The duodenal sweep has a normal appearance, course, and mucosal fold appearance. No malrotation. The imaged proximal jejunum has a normal fold pattern and caliber. There are cholecystectomy clips. FLUOROSCOPY TIME: 3.4 minutes Number of Spot Images: 7 Number of Cine: 11 DOSE AREA PRODUCT: 2163 uGy-m2 (microgray-meter squared) FL/FL barium swallow with air IMPRESSION: 1. Mildly disorganized esophageal peristalsis. 2. Small type I hiatal hernia. 3. Severely thickened gastric rugal folds that suggests chronic gastritis. Grossly no mass. Recommend correlation with EGD. This procedure was performed by Gigi Velazquez PA-C, and supervised by Dr. Peck
== END 2024-04-24 07:32 | disposition home or self-care (01) ==
LOC: HO.XRAY 07:31
PROVIDERS: PCP Internal Medicine; Visit Provider Internal Medicine
DX: R13.10 Dysphagia, unspecified (principal)
CPT/HCPCS: 74221

== ENCOUNTER → 2024-04-24 07:34 | Outpatient (BNV) | payer MEDICARE, MEDICAID, SELFPAY | PROVIDERS: PCP Internal Medicine; Visit Provider Physician Assistant Surgical | DX: R13.10 Dysphagia, unspecified (principal) | CPT/HCPCS: 74246 ==

== ENCOUNTER 2024-05-25 08:06 | Outpatient (REF) | payer MEDICARE, MEDICAID, SELFPAY ==
[2024-05-25 08:16] LABS: MANUAL DIFF FLAG NO
[2024-05-25 08:31] LABS: Basophils Absolute Auto 0.1 X10*3/uL (0.0-0.2); Basophils Percent Auto 0.8 % (0-2); Eosinophils Absolute Auto 0.2 X10*3/uL (0.0-0.4); Eosinophils Percent Auto 1.8 % (0-4); Hematocrit 46.3 % (37.0-47.0); Hemoglobin 15.3 g/dl (12.0-16.0); Imm Gran Abs Auto 0.07 X10*3/uL (0.00-0.03); Imm Gran Pct Auto 0.6 % (0.0-0.4); Lymphocytes Absolute Auto 2.9 X10*3/uL (1.2-4.9); Lymphocytes Percent Auto 25.1 % (20-40); Mean Corpuscular Hemoglobin 30.4 pg (27.0-33.0); Mean Platelet Volume 9.3 fL (9.4-12.3); Monocytes Absolute Auto 1.3 X10*3/uL (0.1-1.2); Monocytes Percent Auto 10.8 % (2-11); Neutrophils Absolute Auto 7.1 x10*3/uL (2.0-8.3); Neutrophils Percent Auto 60.9 % (45-73); Platelet Count 329 X10*3/uL (160-400); Red Blood Count 5.03 X10*6/uL (4.20-5.50); Red Cell Distribution Width 12.7 % (11.0-16.0); White Blood Count 11.6 X10*3/uL (4.8-10.8)
[2024-05-25 08:41] LABS: Estimated Average Glucose 114 mg/dL; Hemoglobin A1c % 5.6 % (<6.0)
[2024-05-25 09:29] LABS: Alanine Aminotransferase 14 U/L (0-31); Albumin Level 4.4 g/dL (3.5-5.0); Alkaline Phosphatase 75 U/L (39-117); Anion Gap 13 (12-20); Aspartate Amino Transferase 17 U/L (5-31); Bilirubin Total 0.2 mg/dL (0.0-1.0); Blood Urea Nitrogen 12 mg/dL (9-16); Calcium 9.7 mg/dL (8.4-10.2); Carbon Dioxide 25 mmol/L (22-29); Chloride 105 mmol/L (96-108); Cholesterol 205 mg/dL (<200); Estimated Glomerular Filt Rate > 60; Free T4 (Free Thyroxine) 1.06 ng/dL (0.71-1.85); Glucose Random 102 mg/dL (60-115); HDL Cholesterol 49 mg/dL (>40); LDL Cholesterol Calculated 127 mg/dL (<100); Potassium 4.6 mmol/L (3.3-5.1); Sodium 138 mmol/L (135-145); Thyroid Stimulating Hormone 2.42 uIU/mL (0.32-4.0); Total Protein 7.3 g/dL (6.5-8.0); Triglycerides 148 mg/dL (<150)
== END 2024-05-25 08:07 | disposition home or self-care (01) ==
LOC: HO.LAB 08:06
PROVIDERS: PCP Internal Medicine; Visit Provider Internal Medicine
DX: I70.0 Atherosclerosis of aorta (principal); E78.00 Pure hypercholesterolemia, unspecified
CPT/HCPCS: 36415; 80053; 80061; 83036; 84439; 84443; 85025

== ENCOUNTER 2024-06-30 08:51 | Outpatient (REF) | payer MEDICARE, MEDICAID, SELFPAY ==
[2024-06-30 09:07] LABS: MANUAL DIFF FLAG NO
[2024-06-30 10:51] LABS: Basophils Absolute Auto 0.1 X10*3/uL (0.0-0.2); Basophils Percent Auto 0.7 % (0-2); Eosinophils Absolute Auto 0.2 X10*3/uL (0.0-0.4); Eosinophils Percent Auto 1.7 % (0-4); Hematocrit 46.3 % (37.0-47.0); Hemoglobin 15.1 g/dl (12.0-16.0); Imm Gran Abs Auto 0.08 X10*3/uL (0.00-0.03); Imm Gran Pct Auto 0.7 % (0.0-0.4); Lymphocytes Percent Auto 27.8 % (20-40); Mean Corpuscular HGB Conc 32.6 g/dl (31.0-35.0); Mean Corpuscular Volume 91.9 fL (80.0-98.0); Mean Platelet Volume 9.7 fL (9.4-12.3); Monocytes Absolute Auto 1.1 X10*3/uL (0.1-1.2); Monocytes Percent Auto 10.2 % (2-11); Neutrophils Absolute Auto 6.3 x10*3/uL (2.0-8.3); Neutrophils Percent Auto 58.9 % (45-73); Platelet Count 363 X10*3/uL (160-400); Red Blood Count 5.04 X10*6/uL (4.20-5.50); White Blood Count 10.7 X10*3/uL (4.8-10.8)
[2024-06-30 11:08] LABS: Anion Gap 12 (12-20); Blood Urea Nitrogen 14 mg/dL (9-16); Calcium 9.5 mg/dL (8.4-10.2); Carbon Dioxide 27 mmol/L (22-29); Chloride 105 mmol/L (96-108); Estimated Glomerular Filt Rate > 60; Glucose Random 103 mg/dL (60-115); Potassium 4.5 mmol/L (3.3-5.1); Sodium 139 mmol/L (135-145)
[2024-06-30 11:37] LABS: Erythrocyte Sedimentation Rate 6 MM/HR (0-20)
[2024-07-08 20:57] LABS: Immunoglobulin E 582 kU/L (<OR=114)
== END 2024-06-30 08:52 | disposition home or self-care (01) ==
LOC: HO.LAB 08:51
PROVIDERS: PCP Internal Medicine; Visit Provider Hospitalist
DX: J45.40 Moderate persistent asthma, uncomplicated (principal)
CPT/HCPCS: 36415; 80048; 82785; 85025; 85652

== ENCOUNTER 2024-07-13 09:30 | Outpatient (AMB) | payer MEDICARE, MEDICAID, SELFPAY ==
--- NOTE | 2024-07-13 09:42 | MHC.OFFVIS ---
Vital Signs 07/13/24 09:43 Height 5 ft 4 in Weight 150 lb 9.211 oz BMI 25.8 Pulse 89 Pulse Source Pulse Oximeter Pulse Oximetry (%) 97 Oxygen Delivery Method Room Air Intake Visit Reasons: Asthma Time Motion Analyst Required: No Allergies Clindamycin HCl Allergy (Unknown, Verified 07/13/24 09:44) esophagus, trouble swallowing gabapentin Allergy (Unknown, Verified 07/13/24 09:44) Unknown ibuprofen Allergy (Unknown, Verified 07/13/24 09:44) nausea metoclopramide [Reglan] Allergy (Unknown, Verified 07/13/24 09:44) jittery NSAIDS (Non-Steroidal Anti-Inflamma [NSAIDS (NON-STEROIDAL ANTI-INFLAMMA] Allergy (Unknown, Verified 07/13/24 09:44) STOMACH UPSET oxycodone [OXYCODONE] Allergy (Unknown, Verified 07/13/24 09:44) palpitations, hyper penicillin V Allergy (Unknown, Verified 07/13/24 09:44) rash ?, hives Penicillins Allergy (Unknown, Verified 07/13/24 09:44) HIVES pseudoephedrine [Sudafed] Allergy (Unknown, Verified 07/13/24 09:44) Unknown tramadol [TRAMADOL] Allergy (Unknown, Verified 07/13/24 09:44) palpitations, hyper vilazodone [Viibryd] Allergy (Unknown, Verified 07/13/24 09:44) dry mouth and tremors zolpidem [Ambien] Allergy (Unknown, Verified 07/13/24 09:44) Unknown bupropion [BUPROPION] Adverse Reaction (Intermediate, Verified 07/13/24 09:44) HTN, BLURRY VISION quetiapine [From Seroquel] Adverse Reaction (Intermediate, Verified 07/13/24 09:44) patient states levofloxacin Adverse Reaction (Unknown, Verified 07/13/24 09:44) weakness, nausea/vomiting HPI Comments Details: The patient is a 54 year woman with a known history of asthma who has been developing worsening respiratory symptoms. She has had multiple evaluations in urgent care and also with her primary care doctor due to worsening productive cough and bronchitis. The patient responds to antibiotics and prednisone fairly well. But then when she completes the course her symptoms again recurred. The recently she was started on Symbicort which is a good inhaler. Also start the productive cough with green sputum. She has denies any allergy testing in the past. The patient denies any significant exposures either. The patient did undergo pulmonary function studies recently. We did personally review the results. Of has significant small airways disease suggestive of her asthma but also has moderate degree of restrictive she in the lung volumes which is unclear in etiology. She did have a chest x-ray but not diagnostic. Therefore I will request a CT scan of the chest to better assess her symptoms and her very abnormal PFTs. The patient will also undergo blood work to further address any triggers or precipitants of her respiratory symptoms. 02/18/2024 the patient is here for sick visit. She is having worsening respiratory symptoms for the last 2 weeks. She has significant chest tightness and wheezing. She went to [facility] what she was evaluated for sick visit and was given a course of antibiotics and prednisone. Initially felt better but then when she prednisone stopped her symptoms we occur. The patient also had a chest x-ray in urgent care. She was told she had pneumonia. There she was given additional antibiotics. The patient continues have significant cough at times it is nonproductive but she has been able to expectorate some phlegm specially after her nebulized treatments. Sometimes she chokes up the phlegm. She did have a CT scan of the chest that we personally reviewed. It appears she has significant mosaic pattern suggesting significant air trapping consistent with an asthma flare-up. In the office she does have significant bronchospastic coughing very diminished breath sounds. She was given 2 DuoNeb treatments with partial improvement and also given Solu-Medrol. She is going to need to go on another course of prednisone taper and also antibiotics. The patient will monitor closely symptoms. If she has no better she will call us again. Otherwise will follow-up in 4-6 weeks. 03/31/2024 the patient is here for a pulmonary follow-up visit. She is feeling better since the last time. She did require Solu-Medrol and a long course of prednisone. She also required antibiotics. Right now she is doing better although she still having wheezing on a regular basis. She has more wheezing when she goes and takes a shower. Denies any mold exposure although she does not know if there is any water damage. The patient also has known significant allergies. We did check her allergies back in September and her IgE level is elevated 197. Eosinophils were stable. The patient is going to be maximizing her respiratory therapy by switching over from Symbicort to breztri. She also start Singulair. In the meantime with the elevated IgE her significant allergies she also will be a good candidate for Xolair. Will go ahead and request to see if we can get her activated on Xolair while we assess her response to Symbicort and Singulair. She continues have wheezing on examination. I do believe that biologic therapy will be the best approach for her. 07/13/2024 the patient is here for a pulmonary follow-up visit. She continues to have some difficulty with breathing. The Xolair has been very effective for her. Although does feel like her symptoms reoccur before her next dose. Seems like she needs additional therapy. Therefore, we did recheck her IgE and now is above 500. We did recalculate the Xolair dose and she is now recommended to get the full dose of 375 mg subcu every 2 weeks. In view of her worsening symptoms will go ahead and start her on the higher dose based on the IgE level. Meantime she did have persistent GI symptoms with underlying reflux and dysphagia. Barium swallows was indeed abnormal reflux in mucosal changes. Therefore, will go ahead and refer her to GI at this point for further evaluation. The patient will continue with current respiratory therapy. She is going to restart the Singulair because of significant allergies. She will follow-up in 3-4 months. If she has any worsening symptoms she will call for further evaluation. [facility] Medical History (Updated 07/13/24 @ 21:59 by Dustin Arango MD) Asthma Allergies Bronchitis Ingrown left greater toenail Acute bronchitis Left leg numbness Chronic restrictive lung disease Asthma-COPD overlap syndrome Chronic allergic rhinitis Palpitation SARS-CoV-2 positive Generalized anxiety disorder Allergy to vaccine Low back pain Gallbladder polyp Closed left clavicular fracture History of miscarriage Temporal lobe epilepsy Hypercholesterolemia Fibromyalgia Migraine Vitamin D deficiency Bile salt-induced diarrhea Insomnia GERD (gastroesophageal reflux disease) Surgical History History of cholecystectomy Family History Father Cancer Mother CVD (cerebrovascular disease) Sister Breast cancer Family/Other Brain cancer Paternal Uncle Colon cancer Paternal Grandmother Stomach cancer Other Mental health disorder Social History (Updated 02/03/24 @ 09:38 by Kathe Blue LPN) Housing: Apartment Alcohol intake: never Patient Tobacco Use Status: Former Tobacco user Tobacco use type: Cigarette Years Smoked: 1 pack per week stopped 2021 e-Cigarette/Vaping Use: Never Used Second Hand Smoke Exposure: No service: No Current occupational status: unemployed Gender identity: Female Cognitive needs: No Hearing needs: No Vision needs: Yes Review of Systems Const Denies chills, Denies excessive sweating, Denies fever(s), Denies headache(s) and Denies night sweats Eyes Denies dry eyes, Denies irritation and Denies itchy eyes ENT Reports Normal hearing present, Denies headache(s), Reports nasal congestion, Reports nasal discharge, Denies post nasal drip and Denies sore throat Card Denies chest pain, Denies chest pain at rest, Denies chest pain with activity, Denies claudication, Denies leg edema, Reports dyspnea on exertion, Denies orthopnea and Denies paroxysmal nocturnal dyspnea Resp Reports cough, Denies excessive phlegm production, Reports dyspnea on exertion, Denies stridor and Reports wheezing Musc Denies myalgias Neuro Reports Normal hearing present, Denies confusion and Denies headache(s) Psych Denies confusion Endo Denies excessive sweating Jonnathan/Lymph Denies lymphadenopathy Aller/Immun Denies itchy eyes, Denies seasonal rhinorrhea and Reports wheezing Physical Exam Vital Signs: Last Vital Signs Pulse 89 07/13/24 09:43 Pulse Ox 97 07/13/24 09:43 Oxygen Delivery Method Room Air 07/13/24 09:43 BMI result Body Mass Index 25.8 Const General: No confusion Orientation/consciousness: No confusion HEENT Head: Yes normocephalic Neck Neck: Yes supple Chest Chest palpation & inspection: normal inspection of the chest Resp Effort & Inspection: normal respiratory effort, Actively coughing Quality: productive and prolonged expiratory phase Auscultation: wheezes and diminished lung sounds Cardio Rate: regular rate Rhythm: regular rhythm Heart sounds: S1 normal heart sound present and S2 normal heart sound present GI Palpation (GI): Soft to palpation Skin General skin exam: no rashes or lesions noted Neuro General: No confusion Cranial nerves: Yes Normal hearing present Extrem General: Yes no clubbing, cyanosis or edema Assessment & Plan Assessment & Plan (1) Asthma: Code(s): J45.909 - Unspecified asthma, uncomplicated Category: Medical Qualifiers: Asthma complication type: uncomplicated Asthma persistence: persistent Asthma severity: severe Qualified Code(s): J45.50 - Severe persistent asthma, uncomplicated (2) Chronic allergic rhinitis: Code(s): J30.9 - Allergic rhinitis, unspecified Category: Medical (3) Chronic restrictive lung disease: Code(s): J98.4 - Other disorders of lung Category: Medical (4) Abnormal barium swallow: Code(s): R93.3 - Abnormal findings on diagnostic imaging of other parts of digestive tract Category: Medical Plan continue Breztri resend singulair continue Zyrtec JUDE as needed barium swallow abnormal, will refer to GI will need to increase Xolair 375mg SC every 2 weeks F/U 3-4 months Orders: Referrals Gastroenterology Referral R93.3 - Abnormal findings on diagnostic imaging of other parts of digestive tract Medications: Refilled montelukast 10 mg PO DAILY 30 tabs 11RF J30.9 - Allergic rhinitis, unspecified Coding Level of Care Code Est Pt Level 4 (62901) Diagnoses Severe persistent asthma without complication J45.50 Asthma complication type: uncomplicated Asthma persistence: persistent Asthma severity: severe Chronic allergic rhinitis J30.9 Chronic restrictive lung disease J98.4 Abnormal barium swallow R93.3 Time Spent (min) 16
[2024-07-13 09:43] VITALS: PULSE 89; O2SAT 97; BMI 25.8
== END 2024-07-13 10:05 | disposition home or self-care (01) ==
PROVIDERS: PCP Internal Medicine; Visit Provider Hospitalist
DX: J45.50 Severe persistent asthma, uncomplicated (principal); J30.9 Allergic rhinitis, unspecified; J98.4 Other disorders of lung; R93.3 Abnormal findings on diagnostic imaging of other parts of digestive tract
CPT/HCPCS: 99214

== ENCOUNTER → 2024-07-13 09:30 | Outpatient (BNVA) | payer MEDICARE, MEDICAID, SELFPAY | PROVIDERS: PCP Internal Medicine; Visit Provider Hospitalist | DX: J45.50 Severe persistent asthma, uncomplicated (principal); J30.9 Allergic rhinitis, unspecified; J98.4 Other disorders of lung; R93.3 Abnormal findings on diagnostic imaging of other parts of digestive tract | CPT/HCPCS: 99212 ==

== ENCOUNTER 2024-07-15 08:32 | Outpatient (AMB) | payer MEDICARE, MEDICAID, SELFPAY ==
--- NOTE | 2024-07-15 08:35 | A.OFFVIS_ITS ---
Vital Signs 07/15/24 08:37 Height 5 ft 4 in Weight 169 lb BMI 29.0 BP 110/72 Intake Visit Reasons: New patient Annual Planisher: Planisher Present (Stacey) Allergies Clindamycin HCl Allergy (Unknown, Verified 07/15/24 08:37) esophagus, trouble swallowing gabapentin Allergy (Unknown, Verified 07/15/24 08:37) Unknown ibuprofen Allergy (Unknown, Verified 07/15/24 08:37) nausea metoclopramide [Reglan] Allergy (Unknown, Verified 07/15/24 08:37) jittery NSAIDS (Non-Steroidal Anti-Inflamma [NSAIDS (NON-STEROIDAL ANTI-INFLAMMA] A llergy (Unknown, Verified 07/15/24 08:37) STOMACH UPSET oxycodone [OXYCODONE] Allergy (Unknown, Verified 07/15/24 08:37) palpitations, hyper penicillin V Allergy (Unknown, Verified 07/15/24 08:37) rash ?, hives Penicillins Allergy (Unknown, Verified 07/15/24 08:37) HIVES pseudoephedrine [Sudafed] Allergy (Unknown, Verified 07/15/24 08:37) Unknown tramadol [TRAMADOL] Allergy (Unknown, Verified 07/15/24 08:37) palpitations, hyper vilazodone [Viibryd] Allergy (Unknown, Verified 07/15/24 08:37) dry mouth and tremors zolpidem [Ambien] Allergy (Unknown, Verified 07/15/24 08:37) Unknown bupropion [BUPROPION] Adverse Reaction (Intermediate, Verified 07/15/24 08:37) HTN, BLURRY VISION quetiapine [From Seroquel] Adverse Reaction (Intermediate, Verified 07/15/24 08:37) patient states levofloxacin Adverse Reaction (Unknown, Verified 07/15/24 08:37) weakness, nausea/vomiting HPI Comments Details: She is a postmenopausal woman 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 She is doing well with no concerns: frequency of urination, and bloating. Menopausal x5yrs. She reports GI symptoms. Attempting to eat a healthy diet with calcium and vitamin D and stays active with exercise-treadmill 30 mins./d. Currently not sexually active. Denies any vaginal dryness or irritation. STI testing offered; she accepts. Last pap smear; approx. age 40yrs. Last mammogram; 2023. Colonoscopy 9yrs. ago. Denies any family history of breast or ovarian cancer, FH colon cancer. [facility] Medical History (Updated 07/15/24 @ 08:49 by Chichi Bolton CNM) Ingrown left greater toenail Vitamin D deficiency Asthma Allergies Bronchitis Acute bronchitis Left leg numbness Chronic restrictive lung disease Asthma-COPD overlap syndrome Chronic allergic rhinitis Palpitation SARS-CoV-2 positive Generalized anxiety disorder Allergy to vaccine Low back pain Gallbladder polyp Closed left clavicular fracture History of miscarriage Temporal lobe epilepsy Hypercholesterolemia Fibromyalgia Migraine Bile salt-induced diarrhea Insomnia GERD (gastroesophageal reflux disease) Surgical History History of cholecystectomy Family History Father Cancer Mother CVD (cerebrovascular disease) Sister Breast cancer Family/Other Brain cancer Paternal Uncle Colon cancer Paternal Grandmother Stomach cancer Other Mental health disorder Social History Housing: Apartment Alcohol intake: never Patient Tobacco Use Status: Former Tobacco user Tobacco use type: Cigarette Years Smoked: 1 pack per week stopped 2021 e-Cigarette/Vaping Use: Never Used Second Hand Smoke Exposure: No service: No Current occupational status: unemployed Gender identity: Female Cognitive needs: No Hearing needs: No Vision needs: Yes Female Reproductive History Menstrual Menopause type: natural Total pregnancies: 3 Full term: 1 Number of Living Children: 1 Ab spontaneous: 2 Date of last pap smear: 01/27/21 (neg pap and hpv) Date of Mammogram: 02/01/24 (Birad 1) Review of Systems Const All systems reviewed & are unremarkable except as noted in HPI and below Reports as per HPI Eyes Reports no additional complaints ENT Reports no additional complaints Card Reports no additional complaints Resp Reports no additional complaints GI Reports as per HPI and Reports no additional complaints Reports as per HPI Musc Reports no additional complaints Skin/Breast Reports as per HPI Neuro Reports no additional complaints Psych Reports no additional complaints Endo Reports no additional complaints Jonnathan/Lymph Reports no additional complaints Aller/Immun Reports no additional complaints Physical Exam Vital Signs: Last Vital Signs BP 110/72 07/15/24 08:37 BMI result Body Mass Index 29.0 Const General: cooperative, healthy appearing, no acute distress, well developed and alert Orientation/consciousness: patient oriented x3 HEENT Head: Yes normal to inspection Eyes General: appearance normal, both eyes and all related structures Neck Neck: Yes normal visual inspection Thyroid: Thyroid normal Chest Chest palpation & inspection: normal inspection of the chest and other (no puckering, dimpling, peau de orange, retraction, discharge, masses) Breast/axilla inspection: normal inspection of the breasts Breast/axilla palpation: normal palpation of the breasts Resp Effort & Inspection: normal respiratory effort GI Inspection: Yes normal to inspection Palpation (GI): Soft to palpation Rectal Exam - Female: deferred General: Yes bladder normal to palpation External Female Exam: normal external appearance and normal appearance of the urethra Speculum Exam - Vagina: normal appearance of the vagina, normal palpation, normal vaginal discharge and vagina atrophic Speculum Exam - Cervix: normal appearance of the cervix and normal palpation Bimanual exam- vagina & uterus: normal bimanual exam, normal palpation, uterine size normal, bladder normal to palpation, normal palpation and non-tender Bimanual Exam- Adnexa, other: no masses Skin General skin exam: no rashes or lesions noted Rashes: no rashes Neuro General: patient oriented x3 Cognition (Neuro): normal cognition Extrem General: Yes normal to inspection Psych Attitude: cooperative Thought process: Normal thought process present Results AMB Urinalysis, Automated UA Leukoctes 0 Mey/uL Last Edit by SANDEE Souza on 07/15/24 08:52 UA Nitrite Negative Last Edit by SANDEE Souza on 07/15/24 08:52 UA Urobilinogen 0 mg/dL Last Edit by SANDEE Souza on 07/15/24 08:5 2 UA Protein 0 mg/dL Last Edit by SANDEE Souza on 07/15/24 08:52 UA pH 6.0 Last Edit by SANDEE Souza on 07/15/24 08:52 UA Blood 0 Jordan/uL Last Edit by SANDEE Souza on 07/15/24 08:52 UA Specific [place] 1.005 Last Edit by SANDEE Souza on 07/15/24 08:52 UA Ketone Negative Last Edit by SANDEE Souza on 07/15/24 08:52 UA Bilirubin 0 mg/dL Last Edit by SANDEE Souza on 07/15/24 08:52 UA Glucose 0 mg/dL Last Edit by SANDEE Souza on 07/15/24 08:52 Results Reviewed Results Reviewed: Laboratory Last Values Urine pH (Auto) 6.0 07/15/24 08:50 Specific [place] (Auto) 1.005 07/15/24 08:50 Urine Protein (Auto) 0 mg/dL 07/15/24 08:50 Glucose (UA)(Auto) 0 mg/dL 07/15/24 08:50 Urine Ketones (Auto) Negative 07/15/24 08:50 Urine Blood (Auto) 0 Jordan/uL 07/15/24 08:50 Urine Nitrite (Auto) Negative 07/15/24 08:50 Urine Bilirubin (Auto) 0 mg/dL 07/15/24 08:50 Urine Urobilinogen (Auto) 0 mg/dL 07/15/24 08:50 Leukocyte Esterase (Auto) 0 Mey/uL 07/15/24 08:50 Assessment & Plan Assessment & Plan (1) Encounter for well woman exam with routine gynecological exam: Code(s): Z01.419 - Encounter for gynecological examination (general) (routine) without abnormal findings Category: Medical Plan Discussed: Current recommendations for pap smears per ASCCP guidelines. Pap obtained. Breast awareness, periodic self breast exams and yearly mammogram. Maintain a healthy lifestyle, well balanced diet including Calcium 1,200 mg and Vitamin D 600 IU daily, and routine exercise. Use of condoms for STI prevention if indicated. Ultrasound, pelvic bloating, menopausal changes including lower abdominal weight gain. Urine dip was negative today. Ultrasound follow up test results in person. Follow up with GI for further workup. Contact the office with any postmenopausal bleeding. Patient verbalizes understanding and agrees to the plan of care. She was given opportunity to ask questions and all questions were answered to the best of my ability. RTO in 1 year for annual rn clinical coordinator exam. This note is constructed using voice recognition software. While every effort has been made to ensure accuracy, translation director errors may have been included. Orders: Orders AMB Urinalysis Automated Today R35.0 - Frequency of micturition HIV Ab/Ag Today Z20.2 - Contact with and (suspected) exposure to infections with a predominantly sexual mode of transmission Hepatitis C Antibody Reflex Today Z20.2 - Contact with and (suspected) exposure to infections with a predominantly sexual mode of transmission Bacterial Vaginosis Panel Today Z20.2 - Contact with and (suspected) exposure to infections with a predominantly sexual mode of transmission CT NG by PCR Today Z20.2 - Contact with and (suspected) exposure to infections with a predominantly sexual mode of transmission PAP + HPV E6/E7 rfx 18/45 Today Z01.419 - Encounter for gynecological examination (general) (routine) without abnormal findings US pelvic and transvaginal Today R14.0 - Abdominal distension (gaseous) Hepatitis B Core Antibody Today Z20.2 - Contact with and (suspected) exposure to infections with a predominantly sexual mode of transmission Syphilis Screen Today Z20.2 - Contact with and (suspected) exposure to infections with a predominantly sexual mode of transmission Coding Level of Care Code New Pt Prev Care 40-64y(09710) Diagnoses Encounter for well woman exam with routine gynecological exam Z01.419
[2024-07-15 08:37] VITALS: BP 110/72; BMI 29.0
== END 2024-07-15 09:28 | disposition home or self-care (01) ==
PROVIDERS: PCP Internal Medicine; Visit Provider Advanced Practice Midwife
DX: R35.0 Frequency of micturition (principal); Z01.419 Encounter for gynecological examination (general) (routine) without abnormal findings
CPT/HCPCS: 99213; G0101; Q0091

== ENCOUNTER 2024-07-15 08:32 | Outpatient (REF) | payer MEDICARE, MEDICAID, SELFPAY ==
[2024-07-17 17:58] LABS: HPV mRNA E6/E7 Not Detected (Not Detected)
== END 2024-07-15 08:33 | disposition home or self-care (01) ==
LOC: HO.LAB 08:32
PROVIDERS: PCP Internal Medicine; Visit Provider Advanced Practice Midwife
DX: Z13.89 Encounter for screening for other disorder (principal)
CPT/HCPCS: 36415; 81003; 88175; 99212; G0101; Q0091

== ENCOUNTER 2024-07-15 09:10 | Outpatient (REF) | payer MEDICARE, MEDICAID, SELFPAY ==
[2024-07-15 15:03] LABS: Bacterial Vaginosis PCR POSITIVE (Negative); Candida Group PCR NOT DETECTED (Not Detect); Candida glab krusei PCR NOT DETECTED (Not Detect); Trichomonas vaginalis PCR NOT DETECTED (Not Detect)
[2024-07-15 15:31] LABS: CT PCR NOT DETECTED (Not Detect.); NG PCR NOT DETECTED (Not Detect.)
== END 2024-07-15 09:11 | disposition home or self-care (01) ==
LOC: HO.LNP 09:10
PROVIDERS: Visit Provider Advanced Practice Midwife
DX: Z01.419 Encounter for gynecological examination (general) (routine) without abnormal findings (principal); Z20.2 Contact with and (suspected) exposure to infections with a predominantly sexual mode of transmission; R35.0 Frequency of micturition
CPT/HCPCS: 0352U; 36415; 81003; 87491; 87591; 87624; 88175; 99212; G0101; Q0091

== ENCOUNTER 2024-08-11 09:44 | Outpatient (AMB) | payer OTHER, SELFPAY ==
--- NOTE | 2024-08-11 09:52 | AM.OFFWIN_ITS ---
Intake Vital Signs 08/11/24 09:53 Height 5 ft 4 in Weight 169 lb BMI 29.0 BP 114/80 Blood Pressure Location Rt brachial Position Sitting Pulse 78 Pulse Source Pulse Oximeter Temp 98.3 F Temp Source Oral Pulse Oximetry (%) 96 Oxygen Delivery Method Room Air Intake Visit Reasons: EP-chest pain asthma,rt ear pain Intake Note: pt c/o asthma exacerbation, chest tightness and RT ear pain. Started Patient Tobacco Use Status: Former Tobacco user Allergies Clindamycin HCl Allergy (Unknown, Verified 08/11/24 09:58) esophagus, trouble swallowing gabapentin Allergy (Unknown, Verified 08/11/24 09:58) Unknown ibuprofen Allergy (Unknown, Verified 08/11/24 09:58) nausea metoclopramide [Reglan] Allergy (Unknown, Verified 08/11/24 09:58) jittery NSAIDS (Non-Steroidal Anti-Inflamma [NSAIDS (NON-STEROIDAL ANTI-INFLAMMA] Allergy (Unknown, Verified 08/11/24 09:58) STOMACH UPSET oxycodone [OXYCODONE] Allergy (Unknown, Verified 08/11/24 09:58) palpitations, hyper pseudoephedrine [Sudafed] Allergy (Unknown, Verified 08/11/24 09:58) Unknown tramadol [TRAMADOL] Allergy (Unknown, Verified 08/11/24 09:58) palpitations, hyper vilazodone [Viibryd] Allergy (Unknown, Verified 08/11/24 09:58) dry mouth and tremors zolpidem [Ambien] Allergy (Unknown, Verified 08/11/24 09:58) Unknown bupropion [BUPROPION] Adverse Reaction (Intermediate, Verified 08/11/24 09:58) HTN, BLURRY VISION quetiapine [From Seroquel] Adverse Reaction (Intermediate, Verified 08/11/24 09:58) patient states levofloxacin Adverse Reaction (Unknown, Verified 08/11/24 09:58) weakness, nausea/vomiting Do you need a note to return to daycare/school/sports/work: No HPI HPI Comments History of Present Illness Details Patient is a 54-year-old female complaining of 1 week of a sore throat, a dry cough, ear pain on the right side as well as some sinus pain below her right eye. She is also complaining of chest tightness. She tells me she has a history of asthma and gets asthma and allergy shots every 2 weeks as well as uses an albuterol nebulizer and inhaler, both of which she has been utilizing s everal times daily over the last week. She states it helps some what for short period of time. She is also taking Tylenol and Motrin for symptomatic relief. Patient tells me she is not allergic to penicillins as per her allergy doctor who did allergy testing on her a short while ago. She also states she has taken Augmentin previously and tolerated it fine. [facility], [facility] Medical History (Updated 08/11/24 @ 10:25 by Niecy Perez PA-C) Seizure disorder Ingrown left greater toenail Vitamin D deficiency Asthma Allergies Bronchitis Acute bronchitis Left leg numbness Chronic restrictive lung disease Asthma-COPD overlap syndrome Chronic allergic rhinitis Palpitation SARS-CoV-2 positive Generalized anxiety disorder Allergy to vaccine Low back pain Gallbladder polyp Closed left clavicular fracture History of miscarriage Temporal lobe epilepsy Hypercholesterolemia Fibromyalgia Migraine Bile salt-induced diarrhea Insomnia GERD (gastroesophageal reflux disease) Surgical History History of cholecystectomy Family History Father Cancer Mother CVD (cerebrovascular disease) Sister Breast cancer Family/Other Brain cancer Paternal Uncle Colon cancer Paternal Grandmother Stomach cancer Other Mental health disorder Social History Housing: Apartment Alcohol intake: never Patient Tobacco Use Status: Former Tobacco user Tobacco use type: Cigarette Years Smoked: 1 pack per week stopped 2021 e-Cigarette/Vaping Use: Never Used Second Hand Smoke Exposure: No service: No Current occupational status: unemployed Gender identity: Female Cognitive needs: No Hearing needs: No Vision needs: Yes Physical Exam Vital Signs: Last Vital Signs Temp 98.3 F 08/11/24 09:53 Pulse 78 08/11/24 09:53 BP 114/80 08/11/24 09:53 Pulse Ox 96 08/11/24 09:53 Oxygen Delivery Method Room Air 08/11/24 09:53 BMI result Body Mass Index 29.0 Const General: cooperative, healthy appearing, comfortable and no acute distress Orientation/consciousness: patient oriented x3 Limitations: no limitations HEENT Head: Yes normal to inspection Ears: hearing grossly normal bilaterally, external ears normal and TM's normal bilaterally General nose exam: Normal external nose present, Normal nares present and No nasal discharge present Face and sinus: Yes normal facial exam and Yes sinus tenderness Mouth: Normal oral and palatal mucosa present and moist mucous membranes Throat: Yes tonsils normal, Yes uvula midline and Yes posterior oropharynx abnormal (Erythema) Eyes General: appearance normal, both eyes and all related structures Neck Neck: Yes normal visual inspection Resp Effort & Inspection: normal respiratory effort, able to speak in complete sentences, Actively coughing, no respiratory distress, not tachypneic, no tripod positioning and no use of accessory muscles Auscultation: clear to auscultation bilaterally Cardio Rate: regular rate Rhythm: regular rhythm Heart sounds: normal S1 and S2 Skin General skin exam: no rashes or lesions noted Neuro General: patient oriented x3 Extrem General: Yes normal to inspection and Yes no clubbing, cyanosis or edema Assessment & Plan Assessment & Plan (1) Sinusitis: Code(s): J32.9 - Chronic sinusitis, unspecified Qualifiers: Sinusitis location: maxillary Chronicity: acute Recurrence: non- recurrent Qualified Code(s): J01.00 - Acute maxillary sinusitis, unspecified Plan: Recommended continuing to use her inhaler and nebulizer, also adding in Flonase. As it has been over a week and she is not feeling better, I will send Augmentin to cover her for sinusitis. Patient tells me she is not allergic to penicillins as per her allergy doctor who did allergy testing on her a short while ago. She also states she has had it previously and tolerated it fine. Plan see above Orders: Orders SARS-CoV2/FLU/RSV Today J06.9 - Acute upper respiratory infection, unspecified Medications: New amoxicillin-pot clavulanate 875-125 mg 1 tab PO Q12H 10 tabs 0RF Coding Level of Care Code Est Pt Level 3 (28877) Diagnoses Acute non-recurrent maxillary sinusitis J01.00 Sinusitis location: maxillary Chronicity: acute Recurrence: non-recurrent
[2024-08-11 09:53] VITALS: BP 114/80; PULSE 78; TEMP 36.8; O2SAT 96; BMI 29.0
== END 2024-08-11 11:36 | disposition home or self-care (01) ==
PROVIDERS: PCP Internal Medicine; Visit Provider Physician Assistant
DX: J01.00 Acute maxillary sinusitis, unspecified (principal)

== ENCOUNTER 2024-08-11 09:44 | Outpatient (REF) | payer MEDICARE, MEDICAID, SELFPAY ==
[2024-08-11 14:10] LABS: Influenza A PCR NEGATIVE (Negative); Influenza B PCR NEGATIVE (Negative); Resp Syncy Virus RNA Qual PCR NEGATIVE (Negative); SARS COV2 PCR INHOUSE NEGATIVE (Negative)
== END 2024-08-11 09:45 | disposition home or self-care (01) ==
LOC: HO.LAB 09:44
PROVIDERS: PCP Internal Medicine; Visit Provider Physician Assistant
DX: J01.00 Acute maxillary sinusitis, unspecified (principal); J06.9 Acute upper respiratory infection, unspecified
CPT/HCPCS: 0241U; 99212

== ENCOUNTER 2024-08-24 09:33 | Outpatient (AMB) | payer SELFPAY ==
--- NOTE | 2024-08-24 10:46 | A.OFFPC_ITS ---
Vital Signs 08/24/24 10:52 Height 5 ft 4 in Weight 168 lb 4 oz BMI 28.9 BP 132/80 Blood Pressure Location Lt brachial Position Sitting Intake Visit Reasons: 3mof\u Intake Note: Patient is here to follow up on Asthma, COPD, GERD, Hypercholesterolemia. Pt decline flu shot today. 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 Supervisor Pole Yard: Not Required per policy Accompanied by: Self / Same As Patient Allergies Clindamycin HCl Allergy (Unknown, Verified 08/24/24 10:52) esophagus, trouble swallowing gabapentin Allergy (Unknown, Verified 08/24/24 10:52) Unknown ibuprofen Allergy (Unknown, Verified 08/24/24 10:52) nausea metoclopramide [Reglan] Allergy (Unknown, Verified 08/24/24 10:52) jittery NSAIDS (Non-Steroidal Anti-Inflamma [NSAIDS (NON-STEROIDAL ANTI-INFLAMMA] Allergy (Unknown, Verified 08/24/24 10:52) STOMACH UPSET oxycodone [OXYCODONE] Allergy (Unknown, Verified 08/24/24 10:52) palpitations, hyper pseudoephedrine [Sudafed] Allergy (Unknown, Verified 08/24/24 10:52) Unknown tramadol [TRAMADOL] Allergy (Unknown, Verified 08/24/24 10:52) palpitations, hyper vilazodone [Viibryd] Allergy (Unknown, Verified 08/24/24 10:52) dry mouth and tremors zolpidem [Ambien] Allergy (Unknown, Verified 08/24/24 10:52) Unknown bupropion [BUPROPION] Adverse Reaction (Intermediate, Verified 08/24/24 10:52) HTN, BLURRY VISION quetiapine [From Seroquel] Adverse Reaction (Intermediate, Verified 08/24/24 10:52) patient states levofloxacin Adverse Reaction (Unknown, Verified 08/24/24 10:52) weakness, nausea/vomiting Medication List - Last Reconciled 08/24/24 by April Vizcaino MD albuterol sulfate 90 mcg/actuation (Ventolin HFA) 1 inh inhalation QID PRN albuterol sulfate 2.5 mg (3 mL) inhalation QID PRN amitriptyline 20 mg (2 x 10 mg) PO BEDTIME 90 days ascorbate calcium (vitamin C) 1 g PO Q6H [id number] 160-9-4.8 mcg/actuation (Breztri Aerosphere) 2 inhalations inhalation BID 30 days calcium carbonate 1,000 mg (2 x 500 mg calcium (1,250 mg)) PO DAILY cetirizine 10 mg PO DAILY cholecalciferol (vitamin D3) 25 mcg PO DAILY cholestyramine-aspartame 4 gram (Prevalite) 4 grams PO BID clonazepam 1 mg PO TID PRN 30 days dexlansoprazole (Dexilant) 60 mg PO DAILY diclofenac sodium 1% topical PRN epinephrine (EpiPen 2-Barrera) 0.3 mg (0.3 mL) IM Q10M PRN 30 days eszopiclone (Lunesta) 3 mg PO BEDTIME famotidine mg PO PRN ferrous sulfate (Feosol) 325 mg PO DAILY [GROWTH STRENGTH RECOVERY ] ipratropium bromide intranasal PRN magnesium oxide 400 mg PO DAILY meclizine 25 mg PO DAILY PRN metoclopramide HCl mg PO nebulizers (Aeroneb Go Nebulizer) As directed omalizumab (Xolair) 375 mg (2.5 mL) subcut Q2W trazodone 50 mg PO BEDTIME PRN triamcinolone acetonide (Nasacort) 2 sprays intranasal DAILY vitamin B complex (B Complex-Vitamin B12 tablet) 1 tab PO DAILY zinc 50 mg PO DAILY Tobacco use date assessed: 08/24/24 Dental Screening Dental Screen Date: 02/25/24 HPI 3mof\u HPI Details 54-year-old overweight femalesmoker e wi th a history of GERD hypercholesterolemia asthma COPD overlap syndrome and generalized anxiety disorder last seen in 05/07/2024. Patient is mammogram is up-to-date January 2024 patient was seen in the Urgent Center having sinus problems in August 11 treated with Augmentin ER visit in July 25 for cough shortness breath and wheezing chest x-ray was negative treat meant for asthma exacerbation with prednisone patient does follow-up with Pulmonary and was seen in July 13 on Breztri, Barrettir, Zyrtec. And Xolair Concern about swallowing and barium swallow was requested. In 04/24/2024 had a barium swallow done showing mild disorganized esophageal peristalsis with small type 1 hiatal hernia severely thickened gastric rugal folds suggesting chronic gastritis. PAtient is on xolair Q 2 week injection Q 2 weeks 375 mg . [facility] Medical History (Updated 08/24/24 @ 11:54 by April Vizcaino MD) Seizure disorder Ingrown left greater toenail Vitamin D deficiency Asthma Allergies Bronchitis Acute bronchitis Left leg numbness Chronic restrictive lung disease Asthma-COPD overlap syndrome Chronic allergic rhinitis Palpitation SARS-CoV-2 positive Generalized anxiety disorder Allergy to vaccine Low back pain Gallbladder polyp Closed left clavicular fracture History of miscarriage Temporal lobe epilepsy Hypercholesterolemia Fibromyalgia Migraine Bile salt-induced diarrhea Insomnia GERD (gastroesophageal reflux disease) Surgical History History of cholecystectomy Family History Father Cancer Mother CVD (cerebrovascular disease) Sister Breast cancer Family/Other Brain cancer Paternal Uncle Colon cancer Paternal Grandmother Stomach cancer Other Mental health disorder Social History Housing: Apartment Alcohol intake: never Patient Tobacco Use Status: Former Tobacco user Tobacco use type: Cigarette Years Smoked: 1 pack per week stopped 2021 e-Cigarette/Vaping Use: Never Used Second Hand Smoke Exposure: No service: No Current occupational status: unemployed Gender identity: Female Cognitive needs: No Hearing needs: No Vision needs: Yes Questionnaire Thrive Questionnaire Date Thrive assessed: 02/25/24 Are you currently unemployed and looking for a job?: Yes MONY-7 AMB Questionnaire MONY-7 Date MONY - 7 assessed: 02/25/24 Source: Developed by Drs. Fady Paredes, Arlen Stewart, Abhi Morris and colleagues, with an educational carina from [employer]. Physical exam (Primary Care) Vital Signs: Last Vital Signs BP 132/80 08/24/24 10:52 BMI result Body Mass Index 28.9 Tobacco/Smoking Status: Tobacco use Status Tobacco use date assessed 08/24/24 08/24/24 11:20 Patient Tobacco Use Status Former Tobacco user 08/24/24 10:48 Tobacco use type Cigarette 08/24/24 10:48 e-Cigarette/Vaping Use Never Used 08/24/24 10:48 Thrive Assessment: Date of Thrive Assessment Date Thrive assessed 02/25/24 08/24/24 10:48 Const General: alert; No acute distress Eyes Conjunctivae: conjunctivae normal Resp Auscultation: clear to auscultation bilaterally Cardio Rate: regular rate Rhythm: regular rhythm GI Inspection: Yes normal to inspection Extrem General: Yes normal to inspection and No edema Coding Level of Care Code Est Pt Level 4 (68644) Complex EM visit Add On G2211 Diagnoses Gastritis K29.70 Colon cancer screening Z12.11 Asthma-COPD overlap syndrome J44.89 Atherosclerosis of abdominal aorta I70.0 Generalized anxiety disorder F41.1 Assessment & Plan Assessment & Plan (1) Gastritis: Code(s): K29.70 - Gastritis, unspecified, without bleeding Category: Medical Plan: Patient is on Dexilant and has been advised to see Gastroenterology (2) Colon cancer screening: Code(s): Z12.11 - Encounter for screening for malignant neoplasm of colon Category: Medical Plan: Referral to Gastroenterology has been done (3) Asthma-COPD overlap syndrome: Code(s): J44.89 - Other specified chronic obstructive pulmonary disease Category: Medical Plan: Continue to follow-up with Pulmonary on albuterol,Breztri Xolair (4) Atherosclerosis of abdominal aorta: Code(s): I70.0 - Atherosclerosis of aorta Category: Medical Plan: Control the cholesterol, weight, blood pressure (5) Generalized anxiety disorder: Comment: Panic disorder conversion schizotypal personality disorder depression Dr. Hector Bhandari [phone] [facility] Code(s): F41.1 - Generalized anxiety disorder Category: Medical Plan: Continue with counseling and therapy. will, have TMS therapy Medications: New omalizumab (Xolair) requires multiple injection sites; do not exceed 150 mg per injection site 375 mg (2.5 mL) subcut Q2W 2 mL 0RF Refilled dexlansoprazole (Dexilant) 60 mg PO DAILY 90 caps 3RF K21.9 - Gastro- esophageal reflux disease without esophagitis cetirizine 10 mg PO DAILY 90 tabs 0RF allergies
[2024-08-24 10:52] VITALS: BP 132/80; BMI 28.9
== END 2024-08-24 12:09 | disposition home or self-care (01) ==
PROVIDERS: PCP Internal Medicine; Visit Provider Internal Medicine
DX: K29.70 Gastritis, unspecified, without bleeding (principal); Z12.11 Encounter for screening for malignant neoplasm of colon; J44.89 Other specified chronic obstructive pulmonary disease; I70.0 Atherosclerosis of aorta; F41.1 Generalized anxiety disorder

== ENCOUNTER → 2024-08-24 09:33 | Outpatient (BNVA) | payer OTHER, MEDICAID, SELFPAY | PROVIDERS: PCP Internal Medicine; Visit Provider Internal Medicine | DX: K29.70 Gastritis, unspecified, without bleeding (principal); J44.89 Other specified chronic obstructive pulmonary disease; I70.0 Atherosclerosis of aorta; F41.1 Generalized anxiety disorder | CPT/HCPCS: 99212 ==

== ENCOUNTER 2024-11-16 10:18 | Outpatient (AMB) | payer OTHER, SELFPAY ==
--- OUTSIDE RECORDS SUMMARY | 2024-11-16 10:24 | XMS_ITS | Data Portability ---
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 c/o return of productive cough, SOB, sinus pressure similar to prior exacerbation last exacerbation 1 month reports frequent exacerbations over past 1 year treated with PO pred and antibiotics (chart review shows amox, augmentin, doxy, bactrim, cephlasporins) frequently around cat (to which she is allergic) commonly get vaginal yeast infection after PO abx VSS lungs with rhonchi #Asthma, COPD exacerbation very likely allergy driven multiple prior abx courses but no FQ d/w patient risks of prolonged use of PO prednisone encounraged pt to make f/up with pulmonary -PO pred 40 mg x1 now, f/up taper -levoflox 750mg x1 now, f/up course -flucoazole after abx notify service if worsening, otherwise return to primary team vkudesia Not available 10/12/2024 22:19:42 Plan of Treatment Reminders Order Date Submit Date Provider Last Modified By Organization Details Last Modified Time Details Appointments None recorded. Lab None recorded. Referral None recorded. Procedures None recorded. Surgeries None recorded. Imaging None recorded. Medication Orders prednisone 20 mg tablet 2023 024 [facility] #19813, [address], [place], [id number], 22:14:25 levofloxaci n 750 mg tablet 2023 024 [facility] #77886, [address], [place], [id number], 4 22:14:25 levofloxaci n 750 mg tablet 2023 [facility] #75441, [address], [place], [id number], 4 22:17:04 prednisone 10 mg tablet 2023 024 [facility] #28098, [address], [place], [id number], 4 22:17:04 fluconazole 150 mg tablet 2023 [facility] #38660, [address], [place], [id number], 22:19:10 Patient TargetsNo targets recorded. Patient InstructionsNo instructions recorded. Reason for Referral None Reported. Medical Equipment None Reported. Allergies Allergen ID Allergen Name Allergen Category Reaction Reaction Severity Criticality Documentation Date Start Date Code Code System Note Provider Name and Address Organization Details Recorded Time 04301 oxycodone medicatio n Not available Not available Not available 10/12/2024 7804 RxNorm Not Available [facility] 20:09:51 61088 Sudafed medicatio n Not available Not available Not available 10/12/202490533 2 RxNorm Not Available [facility] 20:09:51 Medications Name Sig Start Date Stop Date Status Note LastModified by Organization Details LastModified Time cyclobenzap rine 10 mg tablet TAKE 1 TABLET ONCE DAILY AT BEDTIME FOR 14 DAYS. DO NOT DRINK ALCOHOL OR DRIVE WHILE TAKING THIS MEDICATIO N OR OPERATE HEAVY active Not Available Not Available No t Available prednisone 10 mg tablet TAKE 4 TABLETS BY MOUTH EVERY DAY FOR 3 DAYS THEN DECREASE BY 1 TABLET EVERY 3 DAYS active Not Available Not Available No t Available albuterol sulfate 2.5 mg/3 mL (0.083 %) solution for nebulizatio n USE 3 ML VIA NEBULIZER FOUR TIMES DAILY NEEDED FOR SHORTNESS OF BREATH OR WHEEZING active Not Available Not Available No t Available trazodone 50 mg tablet TAKE 1 TABLET BY MOUTH AT BEDTIME NEEDED FOR SLEEP active Not Available Not Available No t Available cetirizine 10 mg tablet TAKE 1 TABLET BY MOUTH DAILY FOR ALLERIGES active Not Available Not Available No t Available azithromyci n 250 mg tablet TAKE 2 TABLETS ON DAY 1 THEN 1 TABLET FOR 4 DAYS 10/12 completed Not Available Not Available Not Available Lidocaine Viscous 2 % mucosal solution active Not Available Not Available Not Available fluconazole 150 mg tablet TAKE 1 TABLET BY MOUTH EVERY DAY active Not Available Not Available No t Available prednisone 20 mg tablet Take 2 tablets every day by oral route. 2023 active Not Available Not Available Not Avai lable simvastatin 10 mg tablet TAKE 1 TABLET BY MOUTH AT BEDTIME active Not Available Not Available No t Available clonazepam 1 mg tablet TAKE 1 TABLET BY MOUTH THREE TIMES DAILY active Not Available Not Available No t Available metronidazo le 500 mg tablet TAKE 1 TABLET BY MOUTH TWICE DAILY WITH FOOD FOR 7 DAYS. AVOID ALCOHOL AND VINEGAR PRODUCTS 10/12 completed Not Available Not Available Not Available sulfamethox azole 800 mg-trimetho prim 160 mg tablet TAKE 1 TABLET BY MOUTH TWICE DAILY 10/12 completed Not Available Not Available Not Available doxycycline monohydrate 100 mg tablet TAKE 1 TABLET BY MOUTH TWICE DAILY FOR 14 DAYS 10/12 completed Not Available Not Available Not Available amoxicillin 500 mg tablet 10/12 completed Not Available Not Available Not Available Cholestyram ine Light 4 gram powder for susp in a packet DISSOLVE 1 PACKET IN LIQUID AND TAKE BY MOUTH TWICE DAILY WITH A MEAL. AVOID OTHER MEDICATIO NS WITHIN 1 HOUR BEFORE OR 4-6 HOURS AFTER DOSE active Not Available Not Available No t Available ondansetron 8 mg disintegrat ing tablet DISSOLVE 1 TABLET ON THE TONGUE EVERY 8 HOURS FOR 5 DAYS FOR NAUSEA OR VOMITING active Not Available Not Available No t Available famotidine 20 mg tablet TAKE 2 TABLETS BY MOUTH DAILY FOR 30 DAYS active Not Available Not Available No t Available metoclopram simona 5 mg tablet TAKE 1 TABLET BY MOUTH THREE TIMES DAILY FOR 5 DAYS NEEDED FOR NAUSEA active Not Available Not Available No t Available amitriptyli ne 10 mg tablet TAKE 2 TABLETS BY MOUTH DAILY AT BEDTIME active Not Available Not Available No t Available meclizine 25 mg tablet TAKE 1 TABLET BY MOUTH DAILY active Not Available Not Available No t Available benzonatate 100 mg capsule TAKE 1 CAPSULE BY MOUTH TWICE DAILY FOR 7 DAYS NEEDED FOR COUGH active Not Available Not Available No t Available doxycycline monohydrate 100 mg capsule TAKE 1 CAPSULE BY MOUTH TWICE DAILY FOR 10 DAYS 10/12 completed Not Available Not Available Not Available oseltamivir 75 mg capsule TAKE 1 CAPSULE BY MOUTH TWICE A DAY FOR 5 DAYS 10/12 completed Not Available Not Available Not Available montelukast 10 mg tablet TAKE 1 TABLET BY MOUTH DAILY active Not Available Not Available No t Available codeine 10 mg-guaifene sin 100 mg/5 mL oral liquid TAKE 10 MLS BY MOUTH EVERY 6 HOURS NEEDED FOR COUGH active Not Available Not Available No t Available epinephrine 0.3 mg/0.3 mL injection, auto-inject or INJECT 0.3MG IN THE MUSCLE DIRECTED EVERY 10 MINUTES NEEDED FOR ANAPHYLAX IS FOR 30 DAYS active Not Available Not Available No t Available levofloxaci n 750 mg tablet TAKE 1 TABLET BY MOUTH EVERY DAY FOR 7 DAYS active Not Available Not Available No t Available albuterol sulfate HFA 90 mcg/actuati on aerosol inhaler INHALE 1 PUFF BY MOUTH FOUR TIMES DAILY NEEDED FOR SHORTNESS OF BREATH OR WHEEZING active Not Available Not Available No t Available ondansetron 4 mg disintegrat ing tablet DISSOLVE 1 TABLET ON THE TONGUE EVERY 8 HOURS NEEDED FOR NAUSEA OR VOMITING active Not Available Not Available No t Available cefdinir 300 mg capsule TAKE 1 CAPSULE BY MOUTH TWICE DAILY FOR 7 DAYS 10/12 completed Not Available Not Available Not Available doxycycline hyclate 100 mg tablet TAKE 1 TABLET BY MOUTH TWICE DAILY FOR 10 DAYS. LIMIT SUN EXPOSURE WHILE ON ANTIBIOTI C active Not Available Not Available No t Available ipratropium bromide 21 mcg (0.03 %) nasal spray INSTILL 2 SPRAYS TWICE DAILY FOR 10 DAYS active Not Available Not Available No t Available loratadine 10 mg tablet TAKE 1 TABLET BY MOUTH EVERY DAY active Not Available Not Available No t Available metoclopram simona 10 mg tablet TAKE 1 TABLET BY MOUTH 2 TO 3 TIMES A DAY BEFORE MEALS AND AT BEDTIME active Not Available Not Available No t Available amoxicillin 875 mg-potassiu m clavulanate 125 mg tablet TAKE 1 TABLET BY MOUTH EVERY 12 HOURS 10/12 completed Not Available Not Available Not Available eszopiclone 3 mg tablet TAKE 1 TABLET BY MOUTH EVERY DAY AT BEDTIME active Not Available Not Available No t Available Symbicort 160 mcg-4.5 mcg/actuati on HFA aerosol inhaler INHALE 2 PUFFS BY MOUTH EVERY 12 HOURS active Not Available Not Available No t Available diclofenac 1 % topical gel APPLY 2 GRAMS TOPICALLY TO THE AFFECTED AREA FOUR TIMES DAILY FOR 10 DAYS active Not Available Not Available No t Available dexlansopra zole 60 mg capsule,bip hase delayed release TAKE 1 CAPSULE BY MOUTH DAILY active Not Available Not Available No t Available Mucus Relief ER 600 mg tablet, extended release TAKE 1 TABLET BY MOUTH EVERY 12 HOURS NEEDED FOR CONGESTIO N active Not Available Not Available No t Available Breztri Aerosphere 160 mcg-9mcg-4. 8mcg/actuat ion HFA aerosol inhaler INHALE 2 PUFFS BY MOUTH TWICE DAILY active Not Available Not Available No t Available Vitals Date Recorded Body temperature Respiratory rate Heart rate Oxygen saturation Oxygen saturation in Arterial blood by Pulse oximetry Systolic blood pressure Diastolic blood pressure Provider Name and Address Organization Details Last Updated DateTime 99.4 [degF] 16 /min 92 /min 95 % 95 % 122 mm[Hg] 84 mm[Hg] Not Available [facility] 21:00:39 Social History None recorded. Functional Status None recorded. Mental Status None recorded. Family History Nothing Reported. Medical History No medical history recorded. Gynecological HistoryNo gynecological history recorded. Obstetrics History GPAL:G 0 P 0 0 0 0 Past Encounters Encounter ID Performer Location Encounter Start Date Encounter Closed Date Diagnosis/Indication Diagnosis SNOMED-CT Code Diagnosis ICD10 Code [id number] Sonia Good MD [facility] [address] [place] [phone] 10/12/2024 21:00:35 10/12/2024 23:38:11 Acute exacerbation of chronic obstructive pulmonary disease 358571812 J44.1 Candidiasis of vagina 72 284979 B37.31 Health Concerns Section Related Observation LastModified by Organization Detai ls LastModified Time None Recorded Concern Status LastModified by Organization Details LastModified Time None Recorded Advance Directives Directive None Recorded Payers Encounter Date Sequence Insurance Name Policy Number Policy Benitez Covered Member ID Benitez Member ID Guarantor Name 10/12/2024 1 [facility] - DOS ON OR AFTER 2023 - DUAL ELIGIBLE - [employer] OPTIONS AND ONE CARE (MEDICARE REPLACEMENT/ADV ANTAGE - HMO) Zoila Giron [id number] Zoila Giron Notes Date Note Type Note Provider Name and Address Organization Details Recorded Time 10/12/2024 text/html HPI: Member with HX of COPD. Calling in with upper respiratory symptoms. Cough and congestion with thick yellow sputum. Wheezing and using rescue inhaler. Now is having some earache pain, and fatigue. Symptoms started about a week ago. Denies fevers. Member requesting evaluation. ................... ................... ................... ................... ................... ................... ................... ........ [facility] Nurse Triage Notes (Yany Patton): Reason For Request: URI symptoms, Cough Chief Complaints: Earache, Fatigue, Cough, COPD PMH: Chronic Obstructive Pulmonary Disease (COPD) Comments: Reviewed HPI- no further info needed. HPamargaret MARSHALL ................... ................... ................... ................... ................... ................... ................... ........ Supply Chain Business Analyst Note From Angel Shabazz: This 54-year-old female with a history including but not limited to asthma, COPD, anxiety requested a visit today to address 2 1/2 weeks of sinus pressure, CHEEK and cough producing green/yellow sputum. She states she has frequent COPD flareups and is usually treated with antibiotics and steroids, most recently was about a month ago. Patient is under the care of a stud driver is scheduled to see him in two weeks. Patient also uses cetirizine, Flonase, Breo, and albuterol nebulizer treatments. Patient states the symptoms are consistent with previous flareups.Patient presents awake and alert, in no acute distress. Her vital signs are reasonably stable and she is afebrile. Nonfocal neurological exam. Normal gait. Mild diffuse expiratory wheezing. Abdomen is soft, nontender, nondistended. No lower extremity edema.[facility] spoke directly to patient and provided significant education. This patient was treated with levofloxacin 750 mg PO and prednisone 40 mg. Patient was instructed to follow up with her stud driver tomorrow and to present to the ED for any new or worsening symptoms, which I reviewed with her. The patient was given the opportunity to ask questions to the [facility] and myself and is agreeable to this plan. ................... ................... ................... ................... ................... ................... ................... ........ [facility] Consulted: Sonia Good ................... ................... ................... ................... ................... ................... ................... ........ Disposition: Fulfilled Sonia Good MD [address] [facility],[address], [place], [phone], [employer] [facility] 10/12/2024 22:19:58 OBGyn Episode No OBEpisode recorded.
--- OUTSIDE RECORDS SUMMARY | 2024-11-16 10:24 | XMS_ITS | Continuity of Care Document ---
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 c/o return of productive cough, SOB, [...] Orders prednisone 20 mg tablet 2023 024 [facility] #54574, [address], [place], [id number], 22:14:25 levofloxaci n 750 mg tablet 2023 024 [facility] #00570, [address], [place], [id number], 4 22:14:25 levofloxaci n 750 mg tablet 2023 [facility] #52250, [address], [place], [id number], 4 22:17:04 prednisone 10 mg tablet 2023 024 [facility] #36631, [address], [place], [id number], 4 22:17:04 fluconazole 150 mg tablet 2023 024 [facility] #32556, [address], [place], [id number], 4 22:19:10 Patient TargetsNo targets recorded. Patient InstructionsNo instructions recorded. Reason for Referral None Reported. Medical Equipment None Reported. Allergies Allergen ID Allergen Name Allergen Category Reaction Reaction Severity Criticality Documentation Date Start Date Code Code System Note Provider Name and Address Organization Details Recorded Time 67764 oxycodone medicatio n Not available Not available Not available 10/12/2024 7804 RxNorm Not Available [facility] 20:09:51 92928 Sudafed medicatio n Not available Not available Not available 10/12/202467429 2 RxNorm Not Available [facility] 20:09:51 Medications Name Sig Start [...] Diagnosis/Indication Diagnosis SNOMED-CT Code Diagnosis ICD10 Code [id number] Sonia Good MD [facility] [address] [place] [phone] 10/12/2024 21:00:35 10/12/2024 23:38:11 Acute exacerbation of chronic obstructive pulmonary disease 548833727 J44.1 Candidiasis of vagina 72 798393 B37.31 Health Concerns Section Related Observation LastModified by Organization Detai ls LastModified Time None Recorded Concern Status LastModified by Organization Details LastModified Time None Recorded Payers Encounter Date Sequence Insurance Name Policy Number Policy Benitez Covered Member ID Benitez Member ID Guarantor Name 10/12/[address] [facility] - DOS ON OR AFTER 2023 - DUAL ELIGIBLE - [employer] OPTIONS AND ONE CARE (MEDICARE REPLACEMENT/ADV ANTAGE - HMO) Zoila Giron [id number] Zoila Giron Notes Date Note Type Note [...] Comments: Reviewed HPI- no further info needed. John MARSHALL ................... ................... ................... ................... ................... ................... ................... ........ Chemical Engineering Teacher Note From Angel Shabazz: This 54-year-old female [...] Patient is under the care of a instruments sales representative is scheduled to see him in two weeks. Patient also uses cetirizine, Flonase, Breo, and albuterol nebulizer treatments. Patient states the symptoms are consistent with previous flareups.Patient presents awake and alert, in no acute distress. Her vital signs are reasonably stable and she is afebrile. Nonfocal neurological exam. Normal gait. Mild diffuse expiratory wheezing. Abdomen is soft, nontender, nondistended. No lower extremity edema.[facility] spoke directly to patient and provided significant education. This patient was treated with levofloxacin 750 mg PO and prednisone 40 mg. Patient was instructed to follow up with her instruments sales representative tomorrow and to present to the ED for any new or worsening symptoms, which I reviewed with her. The patient was given the opportunity to ask questions to the [facility] and myself and is agreeable to this plan. ................... ................... ................... ................... ................... ................... ................... ........ [facility] Consulted: Sonia Good ................... ................... ................... ................... ................... ................... ................... ........ Disposition: Fulfilled Sonia Good MD [address] [facility],[address], [place], [address], [employer] 10/12/2024 22:19:58 OBGyn Episode No OBEpisode recorded.
--- OUTSIDE RECORDS SUMMARY | 2024-11-16 10:25 | XMS_ITS | Patient Health Record ---
Author Organization [facility] Address [address] [place] [address] Care Team Providers Care Director Of Philanthropy Name Role Phone Po April SHEEHAN Primary Care Provider Clemente Hope Jr Unavailable ALLERGIES Allergen (clinical drug ingredient) Drug/Non Drug Allergy documented on EMR Reaction Allergy Type Onset Date Status Sudafed Unknown Drug Allergy Active penicillamine Penicillamine Unknown Drug Allergy Active REASON FOR REFERRAL No Information MEDICATIONS Medication SIG (Take, Route, Fr equency, Duration) Notes Start Date End Date Status clonazePAM 1mg 1 po qhs Activ e Lexapro 20mg 1 po qam Active Claritin 1 po qd Active Lunesta 3mg 1 po qhs Active Zofran 4 MG 1 Orally t.i.d. prn nausea for 30 days 06/17/2013 11/18/2023 Active NexIUM 40mg 1 po qam 11/18/2023 11/18/2023 Active Dicyclomine HCl 20 MG 1 tablet Orally Fo ur times a day for 30 day(s) 08/14/2013 Active SOCIAL HISTORY Sex Assigned At : Social History Observation Description Sex Assigned At Unknown PROBLEMS Problem Type ICD Code Onset Dates Problem Status W/U Status Risk SNOMED Code Notes Problem Epigastric pain (789.06) Active confirmed Epigastric pain (29797437) Problem Nausea (787.02) Active confirmed Nausea (458647989) PLAN OF TREATMENT Future Test Test Name Order Date UPPER GI ENDOSCOPY 07/17/2013 Insurance Providers Payer Name Payer Address Payer Phone Subscriber Number Group Number Insured Name Patient Relationship to Insured Coverage Start Date Coverage End Date MEDICARE OF [place] [address] [place] [address] [id number] CLAUDIA MOONEY Self - patient is the insured MEDICAID OF [facility] [address] [place] [phone] [id number] CLAUDIA MOONEY Self - patient is the insured MEDICAL (GENERAL) HISTORY Medical History History ICD Code egd abd pain epigastric pain benign heart murmur-for which no antibio tic prophylaxis are taken. anxiety attacks allergies
[2024-11-16 10:34] VITALS: BP 132/80; PULSE 105; O2SAT 95; BMI 29.7
--- NOTE | 2024-11-16 10:34 | MHC.OFFVIS ---
Vital Signs 11/16/24 10:34 Height 5 ft 4 in Weight 173 lb 1.006 oz BMI 29.7 BP 132/80 Blood Pressure Location Lt brachial Position Sitting Pulse 105 H Pulse Source Pulse Oximeter Pulse Oximetry (%) 95 Oxygen Delivery Method Room Air Intake Visit Reasons: asthma Rn Flight Required: No Allergies Clindamycin HCl Allergy (Unknown, Verified 11/16/24 10:38) esophagus, trouble swallowing gabapentin Allergy (Unknown, Verified 11/16/24 10:38) Unknown ibuprofen Allergy (Unknown, Verified 11/16/24 10:38) nausea metoclopramide [Reglan] Allergy (Unknown, Verified 11/16/24 10:38) jittery NSAIDS (Non-Steroidal Anti-Inflamma [NSAIDS (NON-STEROIDAL ANTI-INFLAMMA] Allergy (Unknown, Verified 11/16/24 10:38) STOMACH UPSET oxycodone [OXYCODONE] Allergy (Unknown, Verified 11/16/24 10:38) palpitations, hyper pseudoephedrine [Sudafed] Allergy (Unknown, Verified 11/16/24 10:38) Unknown tramadol [TRAMADOL] Allergy (Unknown, Verified 11/16/24 10:38) palpitations, hyper vilazodone [Viibryd] Allergy (Unknown, Verified 11/16/24 10:38) dry mouth and tremors zolpidem [Ambien] Allergy (Unknown, Verified 11/16/24 10:38) Unknown bupropion [BUPROPION] Adverse Reaction (Intermediate, Verified 11/16/24 10:38) HTN, BLURRY VISION quetiapine [From Seroquel] Adverse Reaction (Intermediate, Verified 11/16/24 10:38) patient states levofloxacin Adverse Reaction (Unknown, Verified 11/16/24 10:38) weakness, nausea/vomiting HPI Comments Details: The patient is a 54 year woman with a known history of asthma who has been developing worsening respiratory symptoms. She has had multiple evaluations in urgent care and also with her primary care doctor due to worsening productive cough and bronchitis. The patient responds to antibiotics and prednisone fairly well. But then when she completes the course her symptoms again recurred. The recently she was started on Symbicort which is a good inhaler. Also start the productive cough with green sputum. She has denies any allergy testing in the past. The patient denies any significant exposures either. The patient did undergo pulmonary function studies recently. We did personally review the results. Of has significant small airways disease suggestive of her asthma but also has moderate degree of restrictive she in the lung volumes which is unclear in etiology. She did have a chest x-ray but not diagnostic. Therefore I will request a CT scan of the chest to better assess her symptoms and her very abnormal PFTs. The patient will also undergo blood work to further address any triggers or precipitants of her respiratory symptoms. 02/18/2024 the patient is here for sick visit. She is having worsening respiratory symptoms for the last 2 weeks. She has significant chest tightness and wheezing. She went to [facility] what she was evaluated for sick visit and was given a course of antibiotics and prednisone. Initially felt better but then when she prednisone stopped her symptoms we occur. The patient also had a chest x-ray in urgent care. She was told she had pneumonia. There she was given additional antibiotics. The patient continues have significant cough at times it is nonproductive but she has been able to expectorate some phlegm specially after her nebulized treatments. Sometimes she chokes up the phlegm. She did have a CT scan of the chest that we personally reviewed. It appears she has significant mosaic pattern suggesting significant air trapping consistent with an asthma flare-up. In the office she does have significant bronchospastic coughing very diminished breath sounds. She was given 2 DuoNeb treatments with partial improvement and also given Solu-Medrol. She is going to need to go on another course of prednisone taper and also antibiotics. The patient will monitor closely symptoms. If she has no better she will call us again. Otherwise will follow-up in 4-6 weeks. 03/31/2024 the patient is here for a pulmonary follow-up visit. She is feeling better since the last time. She did require Solu-Medrol and a long course of prednisone. She also required antibiotics. Right now she is doing better although she still having wheezing on a regular basis. She has more wheezing when she goes and takes a shower. Denies any mold exposure although she does not know if there is any water damage. The patient also has known significant allergies. We did check her allergies back in September and her IgE level is elevated 197. Eosinophils were stable. The patient is going to be maximizing her respiratory therapy by switching over from Symbicort to breztri. She also start Singulair. In the meantime with the elevated IgE her significant allergies she also will be a good candidate for Xolair. Will go ahead and request to see if we can get her activated on Xolair while we assess her response to Symbicort and Singulair. She continues have wheezing on examination. I do believe that biologic therapy will be the best approach for her. 07/13/2024 the patient is here for a pulmonary follow-up visit. She continues to have some difficulty with breathing. The Xolair has been very effective for her. Although does feel like her symptoms reoccur before her next dose. Seems like she needs additional therapy. Therefore, we did recheck her IgE and now is above 500. We did recalculate the Xolair dose and she is now recommended to get the full dose of 375 mg subcu every 2 weeks. In view of her worsening symptoms will go ahead and start her on the higher dose based on the IgE level. Meantime she did have persistent GI symptoms with underlying reflux and dysphagia. Barium swallows was indeed abnormal reflux in mucosal changes. Therefore, will go ahead and refer her to GI at this point for further evaluation. The patient will continue with current respiratory therapy. She is going to restart the Singulair because of significant allergies. She will follow-up in 3-4 months. If she has any worsening symptoms she will call for further evaluation. 11/16/2024 the patient is here for pulmonary follow-up visit. Overall she is doing well from a respiratory status. She did increase the Xolair to 375 mg twice a week and she is tolerating that well. In addition to that she is using her Breztri inhaler. She has not had any recent exacerbations which is reassuring. She does complaint of postnasal drip. Her nasal spray was not approved. Now she is having ache of her right ear. It is moderate severity. Hurts to move it. Her a little bit to swallow with it. Feels that she is getting sick with the ear infection. The ear looks a little inflamed although has a lot of wax and difficult to completely see the tympanic membrane. The patient also has been dealing with depression. She is going to start ECT therapy soon. She is also waiting for GI appointment which is going to be in November. At least from a pulmonary standpoint she is doing well will continue the therapy and treated for the infection of the ear and ultimately will follow-up in 6-8 months. If she has any issues prior to this she will call for an earlier assessment. [facility] Medical History (Updated 08/24/24 @ 11:54 by April Vizcaino MD) Seizure disorder Ingrown left greater toenail Vitamin D deficiency Asthma Allergies Bronchitis Acute bronchitis Left leg numbness Chronic restrictive lung disease Asthma-COPD overlap syndrome Chronic allergic rhinitis Palpitation SARS-CoV-2 positive Generalized anxiety disorder Allergy to vaccine Low back pain Gallbladder polyp Closed left clavicular fracture History of miscarriage Temporal lobe epilepsy Hypercholesterolemia Fibromyalgia Migraine Bile salt-induced diarrhea Insomnia GERD (gastroesophageal reflux disease) Surgical History History of cholecystectomy Family History Father Cancer Mother CVD (cerebrovascular disease) Sister Breast cancer Family/Other Brain cancer Paternal Uncle Colon cancer Paternal Grandmother Stomach cancer Other Mental health disorder Social History Housing: Apartment Alcohol intake: never Patient Tobacco Use Status: Former Tobacco user Tobacco use type: Cigarette Years Smoked: 1 pack per week stopped 2021 e-Cigarette/Vaping Use: Never Used Second Hand Smoke Exposure: No service: No Current occupational status: unemployed Gender identity: Female Cognitive needs: No Hearing needs: No Vision needs: Yes Review of Systems Const Denies chills, Denies excessive sweating, Denies fever(s), Denies headache(s) and Denies night sweats Eyes Denies dry eyes, Denies irritation and Denies itchy eyes ENT Reports otalgia, Denies headache(s), Reports nasal congestion, Reports nasal discharge, Denies post nasal drip and Denies sore throat Card Denies chest pain, Denies chest pain at rest, Denies chest pain with activity, Denies claudication, Denies leg edema, Reports dyspnea on exertion, Denies orthopnea and Denies paroxysmal nocturnal dyspnea Resp Reports cough, Denies excessive phlegm production, Reports dyspnea on exertion, Denies stridor and Reports wheezing Musc Denies myalgias Neuro Denies confusion and Denies headache(s) Psych Denies confusion Endo Denies excessive sweating Jonnathan/Lymph Denies lymphadenopathy Aller/Immun Denies itchy eyes, Denies seasonal rhinorrhea and Reports wheezing Physical Exam Vital Signs: Last Vital Signs Pulse 105 H 11/16/24 10:34 BP 132/80 11/16/24 10:34 Pulse Ox 95 11/16/24 10:34 Oxygen Delivery Method Room Air 11/16/24 10:34 BMI result Body Mass Index 29.7 Const General: No confusion Orientation/consciousness: No confusion HEENT Head: Yes normocephalic Ears: external ear abnormal pain with movement of external ear on the right General nose exam: Abnormal mucous membranes and turbinates present Neck Neck: Yes supple Chest Chest palpation & inspection: normal inspection of the chest Resp Effort & Inspection: normal respiratory effort, Actively coughing Quality: productive and prolonged expiratory phase Auscultation: wheezes and diminished lung sounds Cardio Rate: regular rate Rhythm: regular rhythm Heart sounds: S1 normal heart sound present and S2 normal heart sound present GI Palpation (GI): Soft to palpation Skin General skin exam: no rashes or lesions noted Neuro General: No confusion Extrem General: Yes no clubbing, cyanosis or edema Assessment & Plan Assessment & Plan (1) Asthma: Code(s): J45.909 - Unspecified asthma, uncomplicated Category: Medical Qualifiers: Asthma complication type: uncomplicated Asthma persistence: persistent Asthma severity: severe Qualified Code(s): J45.50 - Severe persistent asthma, uncomplicated (2) Chronic allergic rhinitis: Code(s): J30.9 - Allergic rhinitis, unspecified Category: Medical (3) Chronic restrictive lung disease: Code(s): J98.4 - Other disorders of lung Category: Medical (4) Abnormal barium swallow: Code(s): R93.3 - Abnormal findings on diagnostic imaging of other parts of digestive tract Category: Medical Plan continue Breztri resend singulair continue Zyrtec start Dymista start doxycycline JUDE as needed barium swallow abnormal, will refer to GI Xolair 375mg SC every 2 weeks F/U 6-8 months Medications: New doxycycline monohydrate 100 mg PO BID 28 tabs 0RF 14 days azelastine-fluticasone 137-50 mcg/spray (Dymista) administer into each nostril 1 spray intranasal BID 23 grams 6RF Coding Level of Care Code Est Pt Level 4 (93073) Diagnoses Severe persistent asthma without complication J45.50 Asthma complication type: uncomplicated Asthma persistence: persistent Asthma severity: severe Chronic allergic rhinitis J30.9 Chronic restrictive lung disease J98.4 Abnormal barium swallow R93.3 Time Spent (min) 17
== END 2024-11-16 10:53 | disposition home or self-care (01) ==
PROVIDERS: PCP Internal Medicine; Visit Provider Hospitalist
DX: J45.50 Severe persistent asthma, uncomplicated (principal); J30.9 Allergic rhinitis, unspecified; J98.4 Other disorders of lung; R93.3 Abnormal findings on diagnostic imaging of other parts of digestive tract
CPT/HCPCS: 99214

== ENCOUNTER → 2024-11-16 10:18 | Outpatient (BNVA) | payer OTHER, SELFPAY | PROVIDERS: PCP Internal Medicine; Visit Provider Hospitalist | DX: J45.50 Severe persistent asthma, uncomplicated (principal); J98.4 Other disorders of lung; J30.9 Allergic rhinitis, unspecified; R93.3 Abnormal findings on diagnostic imaging of other parts of digestive tract | CPT/HCPCS: 99212 ==

== ENCOUNTER 2024-12-09 08:11 | Outpatient (AMB) | payer OTHER, SELFPAY ==
--- OUTSIDE RECORDS SUMMARY | 2024-12-09 08:15 | XMS_ITS | Patient Health Record ---
Author Organization [facility] Address [address] [place] [address] Care Team Providers Care Geothermal Field Technician Name Role Phone Po April SHEEHAN Primary Care Provider Clemente Hope Jr Unavailable [phone] ALLERGIES Allergen (clinical drug ingredient) Drug/Non Drug [...] t.i.d. prn nausea for 30 days 06/17/2013 11/18/2024 Active NexIUM 40mg 1 po qam 11/18/2024 11/18/2024 Active Dicyclomine HCl 20 MG 1 tablet Orally Fo ur times a day for 30 day(s) 08/14/2013 Active SOCIAL HISTORY Sex Assigned At : Social History Observation Description Sex Assigned At Unknown PROBLEMS Problem Type ICD Code Onset Dates Problem Status W/U Status Risk SNOMED Code Notes Problem Epigastric pain (789.06) Active confirmed Epigastric pain (86864448) Problem Nausea (787.02) Active confirmed Nausea (945714417) PLAN OF TREATMENT Future Test Test Name Order Date UPPER GI ENDOSCOPY 07/17/2013 Insurance Providers Payer Name Payer Address Payer Phone Subscriber Number Group Number Insured Name Patient Relationship to Insured Coverage Start Date Coverage End Date MEDICARE OF [place] [address] [place] [address] [id number] CLAUDIA MOONEY Self - patient is the insured MEDICAID OF [facility] [address] [place] [address] [id number] CLAUDIA MOONEY Self - patient is the insured MEDICAL (GENERAL) HISTORY Medical History History ICD Code egd abd pain epigastric pain benign heart murmur-for which no antibio tic prophylaxis are taken. anxiety attacks allergies
--- OUTSIDE RECORDS SUMMARY | 2024-12-09 08:15 | XMS_ITS | Data Portability ---
Author Organization [facility] Address [address] [place] [id number] Care Team Providers Care Cosmetician Apprentice Name Role Phone HIM CCA OTHER Assessment Encounter Date Assessment Date Assessment LastModified by Organization Details LastModified Time 10/12/2024 10/12/2024 service called for cough, SOB found 54 milagros with hx asthma COPD on Xolair, has cryptologic supervisor anxiety c/o return of productive cough, SOB, [...] Orders prednisone 20 mg tablet 2023 024 [facility] #[id number], [address] [place], [place], [id number], 22:14:25 levofloxaci n 750 mg tablet 2023 024 [facility] #[id number], [address] [place], [place], [id number], 4 22:14:25 levofloxaci n 750 mg tablet [address] [facility] #[id number], [address] [place], [place], [id number], 4 22:17:04 prednisone 10 mg tablet [address] [facility] #[id number], [address] [place], [place], [id number], 4 22:17:04 fluconazole 150 mg tablet [address] [facility] #[id number], [address] [place], [place], [id number], 22:19:10 Patient TargetsNo targets recorded. Patient InstructionsNo instructions recorded. Reason for Referral None Reported. Medical Equipment None Reported. Allergies Allergen ID Allergen Name Allergen Category Reaction Reaction Severity Criticality Documentation Date Start Date Code Code System Note Provider Name and Address Organization Details Recorded Time 28350 oxycodone medicatio n Not available Not available Not available 10/12/2024 7804 RxNorm Not Available [facility] - production 20:09:51 19104 Sudafed medicatio n Not available Not available Not available 10/12/202483359 2 RxNorm Not Available [facility] 20:09:51 Medications Name Sig Start [...] Diagnosis/Indication Diagnosis SNOMED-CT Code Diagnosis ICD10 Code Diagnosis Note [id number] Sonia Good MD [facility] [address] [place] [phone] 10/12/2024 21:00:35 10/12/2024 23:38:11 Acute exacerbation of chronic obstructive pulmonary disease 341197764 J44.1 Candidiasis of vagina 72 818588 B37.31 Health Concerns Section Related Observation LastModified by Organization Detai ls LastModified Time None Recorded Concern Status LastModified by Organization Details LastModified Time None Recorded Advance Directives Directive None Recorded Payers Encounter Date Sequence Insurance Name Policy Number Policy Benitez Covered Member ID Benitez Member ID Guarantor Name 10/12/2024 1 [facility] - DOS ON OR AFTER 2023 - DUAL ELIGIBLE - RETIREMENT OPTIONS AND ONE CARE (MEDICARE REPLACEMENT/ADV ANTAGE - HMO) Zoila Giron [id number] Zoila Giron Notes Date Note Type Note [...] ................... ................... ................... ................... ................... ................... ........ Special Programs Director Note From Angel Shabazz: This 54-year-old female [...] Patient is under the care of a cryptologic supervisor is scheduled to see him in two weeks. Patient also uses cetirizine, Flonase, Breo, and albuterol nebulizer treatments. Patient states the symptoms are consistent with previous flareups.Patient presents awake and alert, in no acute distress. Her vital signs are reasonably stable and she is afebrile. Nonfocal neurological exam. Normal gait. Mild diffuse expiratory wheezing. Abdomen is soft, nontender, nondistended. No lower extremity edema.[facility] spoke directly to patient and provided significant education. This patient was treated with levofloxacin 750 mg PO and prednisone 40 mg. Patient was instructed to follow up with her cryptologic supervisor tomorrow and to present to the ED for any new or worsening symptoms, which I reviewed with her. The patient was given the opportunity to ask questions to the [facility] and myself and is agreeable to this plan. ................... ................... ................... ................... ................... ................... ................... ........ [facility] Consulted: Sonia Good ................... ................... ................... ................... ................... ................... ................... ........ Disposition: Fulfilled Sonia Good MD [address] [facility],[address], [place], [phone], [employer] - [employer], SHERRI 10/12/2024 22:19:58 OBGyn Episode No OBEpisode recorded.
--- OUTSIDE RECORDS SUMMARY | 2024-12-09 08:15 | XMS_ITS | Clinical Summary ---
Author Organization [facility] it Address [address] [place] [address] Care Team Providers Care Supply Technician Name Role Phone April Vizcaino MD Primary Care Provider [phone] Social History Tobacco Use Types Packs/Day Years Used Date Smoking Tobacco: Never Assessed Sex and Gender Information Value Date Recorded Sex Assigned at Not on file Gender Identity Not on file Sexual Orientation Not on file Plan of Treatment Health Maintenance Due Date Last Done Comments Hepatitis B Vaccines (1 of 3 - 19+ 3-dose series) 1991 Breast Cancer Screening 05/20/2020 05/20/2018 Cervical Cancer Screening: P ap Smear 06/12/2021 06/12/2018 Zoster Vaccines (1 of 2) 2022 Colorectal Cancer Screening: Colonoscopy 10/30/2022 Depression Screening 10/30/2022 HIV Screening 10/30/2022 Hepatitis C Screening 10/30/2022 Social Influencers of Health Screening 10/30/2022 COVID-19 Vaccine ( - 2023-2 5 season) 2024 Influenza Vaccine (#1) 2024 09/17/2014 DTaP,Tdap,and Td Vaccines (2 - Td or Tdap) 09/17/2024 09/17/2014 HIB Vaccines Aged Out No longer eligi ble based on patient's age to complete this topic HPV Vaccines Aged Out No longer eligi ble based on patient's age to complete this topic Hepatitis A Vaccines Aged Out No long er eligible based on patient's age to complete this topic IPV Vaccines Aged Out No longer eligi ble based on patient's age to complete this topic MMR Vaccines Aged Out No longer eligi ble based on patient's age to complete this topic Meningococcal ACWY Vaccine Aged Out N o longer eligible based on patient's age to complete this topic Pneumococcal Vaccine: Pediat rics (0 to 5 Years) and At-Risk Patients (6 to 64 Years) Aged Out No longer eligi ble based on patient's age to complete this topic RSV Immunization Patients Un mariam 20 months Aged Out No longer eligible b ased on patient's age to complete this topic Varicella Vaccines Aged Out No longer eligible based on patient's age to complete this topic Procedures Procedure Name Priority Date/Time Associated Diagnosis Comments PAP SMEAR Routine 06/12/2018 SCR MAMMO BI INCL CAD Routine 05/20/2018 1:51 PM EDT Encounter for screening mammogram for malignant neoplasm of breast from Last 3 Months or Most Recently Relevant to Health Maintenance Results * Pap smear (06/12/2018) 06/12/2018 Narrative HISTORICAL TESTING LAB RESULTING AGENCY - 06/18/2018 9:05 AM EDT [id number] THINPREP PAP, IMAGED: ATYPICAL SQUAMOUS CELLS OF UNDETERMINED SIGNIFICANCE (ASCUS) ??. RESULT OF APTIMA HIGH RISK HPV ASSAY: ?? POSITIVE ? (SEROTYPES 16,18,31,33,35,39,45,51,52,56,58,59,66,68) MIKKI LARA(ASCP) (CASE SCREENED 06 16 2018) DENNIS VANCE M.D., PATHOLOGIST (CASE ELECTRONICALLY SIGNED 06 16 2018) ADEQUACY: SATISFACTORY. ENDOCERVICAL/TRANSFORMATION ZONE COMPONENT PRESENT. SOURCE: THINPREP PAP HPV ANY DX: ??REFLEX 16 AND 18, CERVICAL, IMAGED: CLINICAL INFORMATION: HPV ANY DIAGNOSIS. Z12.4, Z01.419, PAP HX: NEGATIVE Adina Hickey MD LAB CYTOLOGY ORDERAB LES HISTORICAL TESTING LAB RESULTING AGENCY * SCR MAMMO BI INCL CAD (05/20/2018 1:51 PM EDT) Anatomical Region Laterality Modality Radiographic Deanna ging 01/10/2018 3:34 PM EST Narrative 05/22/2018 9:26 AM EDT This is a summary report. The complete report is available in the patient's medical record. If you cannot access the medical record, please contact the sending organization for a detailed fax or copy. Full field digital screening mammography, reviewed with CAD and compared to previous. ??The breasts are composed of fatty and fibroglandular tissue. ??No suspicious mass, architectural distortion or suspicious calcifications are identified. IMPRESSION: : No mammographic evidence of malignancy. BIRADS 1-Negative; N. 5 year breast cancer risk assessment 5.5 % Lifetime breast cancer risk assessment 40.6 % Breast cancer risk category High (>20%) Procedure Note John Morales MD - 11/06/2022 This is a summary report. The complete report is available in thepatient's medical record. If you cannot access the medical record, pleasecontact the sending organization for a detailed fax or copy. Full field digital screening mammography, reviewed with CAD and comparedto previous. The breasts are composed of fatty and fibroglandular tissue.No suspicious mass, architectural distortion or suspicious calcificationsare identified. IMPRESSION: : No mammographic evidence of malignancy. BIRADS 1-Negative; N. 5 year breast cancer risk assessment 5.5 % Lifetime breast cancer risk assessment 40.6 % Breast cancer risk category High (>20%) April Vizcaino MD IMG XR PROCEDURES from Last 3 Months or Most Recently Relevant to Health Maintenance Care Teams Supply Technician Relationship Specialty Start Date End Date April Vizcaino MD [address] [place] [address] [address] [facility] [place] [address] PCP - General Internal Medicine 11/27/16
[2024-12-09 08:26] VITALS: BP 122/72; PULSE 71; O2SAT 98; BMI 29.3
--- NOTE | 2024-12-09 08:26 | A.OFFPC_ITS ---
Vital Signs 12/09/24 08:26 Height 5 ft 4 in Weight 171 lb BMI 29.3 BP 122/72 Blood Pressure Location Lt brachial Position Sitting Pulse 71 Pulse Source Pulse Oximeter Pulse Oximetry (%) 98 Oxygen Delivery Method Room Air Intake Visit Reasons: ASthma /COPD, MONY Allergies Clindamycin HCl Allergy (Unknown, Verified 12/09/24 08:27) esophagus, trouble swallowing gabapentin Allergy (Unknown, Verified 12/09/24 08:27) Unknown ibuprofen Allergy (Unknown, Verified 12/09/24 08:27) nausea metoclopramide [Reglan] Allergy (Unknown, Verified 12/09/24 08:27) jittery NSAIDS (Non-Steroidal Anti-Inflamma [NSAIDS (NON-STEROIDAL ANTI-INFLAMMA] Allergy (Unknown, Verified 12/09/24 08:27) STOMACH UPSET oxycodone [OXYCODONE] Allergy (Unknown, Verified 12/09/24 08:27) palpitations, hyper pseudoephedrine [Sudafed] Allergy (Unknown, Verified 12/09/24 08:27) Unknown tramadol [TRAMADOL] Allergy (Unknown, Verified 12/09/24 08:27) palpitations, hyper vilazodone [Viibryd] Allergy (Unknown, Verified 12/09/24 08:27) dry mouth and tremors zolpidem [Ambien] Allergy (Unknown, Verified 12/09/24 08:27) Unknown bupropion [BUPROPION] Adverse Reaction (Intermediate, Verified 12/09/24 08:27) HTN, BLURRY VISION quetiapine [From Seroquel] Adverse Reaction (Intermediate, Verified 12/09/24 08:27) patient states levofloxacin Adverse Reaction (Unknown, Verified 12/09/24 08:27) weakness, nausea/vomiting Tobacco use date assessed: 12/09/24 Dental Screening Dental Screen Date: 12/09/24 Did you have a dental visit in the last 12 months?: Yes Did you have a dental problem in the last 6 months where you did not have access to dental care?: No Was dental information given to patient?: Patient has dentist HPI ASthma /COPD, MONY HPI Details The patient is a 54-year-old female presenting with concerns of abdominal pain and reviewing her ongoing medical conditions. The patient has been experiencing cramping pain on the right side of the abdomen, which worsens with movements such as bending. She suspects it might be related to a hernia or due to being overweight. The patient also experiences periodic pain in the right side. Past imaging, including a CT scan done in 2022, showed no abnormalities except for the presence of a small hiatal hernia. The patient reports gastritis diagnosed via prior swallowing studies, managed with dietary changes and Dexilant. Asthma is a significant ongoing concern, managed with Zyrtec, an inhaler, Xolair, Singulair, and albuterol, with recent shots administered on the day of the visit. For insomnia, the patient uses amitriptyline, clonazepam, Lunesta, and trazodone. Her GERD and gastritis require careful dietary management, which she adheres to by avoiding problematic foods and eating early dinners. She also experiences overweight issues, predominantly around the abdominal area, despite using a treadmill and a vibrating platform device for exercise. The patient is aware of her allergy management regimen, currently using Demista nasal spray and Zyrtec. Recent antibiotics were used for ear inflammation. The patient's maintenance medications include multiple vitamins and supplements such as Vitamin C, Vitamin D, Calcium, Magnesium, and Zinc. She also receives regular vaccinations and is considering updating her pneumonia and Tdap vaccines. [facility] Medical History (Updated 08/24/24 @ 11:54 by April Vizcaino MD) Seizure disorder Ingrown left greater toenail Vitamin D deficiency Asthma Allergies Bronchitis Acute bronchitis Left leg numbness Chronic restrictive lung disease Asthma-COPD overlap syndrome Chronic allergic rhinitis Palpitation SARS-CoV-2 positive Generalized anxiety disorder Allergy to vaccine Low back pain Gallbladder polyp Closed left clavicular fracture History of miscarriage Temporal lobe epilepsy Hypercholesterolemia Fibromyalgia Migraine Bile salt-induced diarrhea Insomnia GERD (gastroesophageal reflux disease) Surgical History History of cholecystectomy Family History Father Cancer Mother CVD (cerebrovascular disease) Sister Breast cancer Family/Other Brain cancer Paternal Uncle Colon cancer Paternal Grandmother Stomach cancer Other Mental health disorder Social History Housing: Apartment Alcohol intake: never Patient Tobacco Use Status: Former Tobacco user Tobacco use type: Cigarette Years Smoked: 1 pack per week stopped 2021 e-Cigarette/Vaping Use: Never Used Second Hand Smoke Exposure: No service: No Current occupational status: unemployed Gender identity: Female Cognitive needs: No Hearing needs: No Vision needs: Yes Questionnaire PHQ-9 Over the last 2 weeks, how often have you been bothered by any of the following problems? 1. Little interest or pleasure in doing things: several days 2. Feeling down, depressed, or hopeless: several days 3. Trouble falling or staying asleep, or sleeping too much: not at all 4. Feeling tired or having little energy: several days 5. Poor appetite or overeating: several days 6. Feeling bad about yourself - or that you are a failure or have let yourself or your family down: several days 7. Trouble concentrating on things, such as reading the newspaper or watching television: not at all 8. Moving or speaking so slowly that other people could have noticed. Or the opposite - being so fidgety or restless that you have been moving around a lot more than usual: several days 9. Thoughts that you would be better off or of hurting yourself in some way: several days Total score: 7 Depression Screening Interpretation: Positive Depression Screening Done: Yes 69005 - PHQ-9 Billing: Yes Source: Developed by Drs. Fady Paredes, Arlen Stewart, Abhi Morris and colleagues, with an educational carina from [employer]: [employer]. Thrive Questionnaire Date Thrive assessed: 12/09/24 I am a: Patient What is your living situation today?: I have a steady place to live Within the past 12 months, did the food you bought not last and you didn't have the money to get more?: Never true Within the past 12 months, did you worry whether your food would run out before you got money to buy more?: Never true Do you have trouble paying for medicines?: No Do you have trouble getting transportation to medical appointments?: No Do you have trouble paying your heating and electricity bill?: No Do you have trouble taking care of your child, family member or friend?: No Do you have trouble with day-to-day activities such as bathing, preparing meals, shopping, managing finances, etc.?: No Are you currently unemployed and looking for a job?: Yes Are you interested in more education?: No Currently or been in a relationship where the following occur: No concerns reported THRIVE Score: 0 AUDIT C Alcohol Use Questionnaire (AUDIT-C) 1. How often do you have a drink containing alcohol?: Never 2. How many drinks containing alcohol do you have on a typical day when you are drinking?: 1 or 2 (none) 3. How often do you have six or more drinks on one occasion?: Never Total Score: 0 Score Reviewed/Action Taken: No MONY-7 AMB Questionnaire MONY-7 Date MONY - 7 assessed: 12/09/24 Feeling nervous, anxious, or on edge: 1 = Several days Not being able to stop or control worryin = Several days Worrying too much about different things: 1 = Several days Trouble relaxin = Several days Being so restless that it is hard to sit still: 1 = Several days Becoming easily annoyed or irritable: 1 = Several days Feeling afraid as if something awful might happen: 1 = Several days Total MONY-7 score (0-4 normal; 5-9 mild; 10-14 moderate; 15-21 severe): 7 Source: Developed by Drs. Fady Paredes, Arlen Stewart, Abhi Morris and colleagues, with an educational carina from [employer]: [employer]. Physical exam (Primary Care) Vital Signs: Last Vital Signs Pulse 71 12/09/24 08:26 BP 122/72 12/09/24 08:26 Pulse Ox 98 12/09/24 08:26 Oxygen Delivery Method Room Air 12/09/24 08:26 BMI result Body Mass Index 29.3 Tobacco/Smoking Status: Tobacco use Status Tobacco use date assessed 12/09/24 12/09/24 08:28 Patient Tobacco Use Status Former Tobacco user 12/09/24 08:28 Tobacco use type Cigarette 12/09/24 08:28 e-Cigarette/Vaping Use Never Used 12/09/24 08:28 PHQ-9: PHQ-9 Score PHQ-9: Total score 7 12/09/24 09:02 Depression Screening Interpretation: Positive Thrive Assessment: Date of Thrive Assessment Date Thrive assessed 12/09/24 12/09/24 08:35 Currently or been in a relationship where the following occur: No concerns reported Const General: alert; No acute distress Eyes Conjunctivae: conjunctivae normal Resp Auscultation: clear to auscultation bilaterally Cardio Rate: regular rate Rhythm: regular rhythm GI Inspection: Yes normal to inspection Extrem General: Yes normal to inspection and No edema Immunizations pneumoc 20-renata conj-dip cr(PF) 0.5 mL IM syringe Performing Provider: April Vizcaino MD Performing Location: [facility] [facility] Administered by: Zahra Gomez CMA on 12/09/24 09:22 Dose Route Admin Location Dispensed Lot Number Expiration Date ND Floor Assembler 0.5 mL IM Right Deltoid 0.5 mL [id number] 03/18/26 [id number] [employer] VIS Given Date VIS Provided VIS Publication Date 12/09/24 Single Vaccine 21 Eligibility Eligibility Date Funding Source Not VFC Eligible 12/09/24 Private Boostrix Tdap 2.5 Lf unit-8 mcg-5 Lf/0.5 mL intramuscular syringe Performing Provider: April Vizcaino MD Performing Location: [facility] Administered by: Zahra Gomez CMA on 12/09/24 09:22 Dose Route Admin Location Dispensed Lot Number Expiration Date ND Floor Assembler 0.5 mL IM Left Deltoid 0.5 mL [id number] 02/03/27 [id number] [employer] VIS Given Date VIS Provided VIS Publication Date 12/09/24 Single Vaccine 21 Eligibility Eligibility Date Funding Source Not VFC Eligible 12/09/24 Private Coding Level of Care Code Est Pt Level 4 (27142) Diagnoses Gastritis K29.70 Severe persistent asthma without complication J45.50 Asthma severity: severe Asthma persistence: persistent Asthma complication type: uncomplicated Atherosclerosis of abdominal aorta I70.0 Colon cancer screening Z12.11 Generalized anxiety disorder F41.1 Hypercholesterolemia E78.00 Gastroesophageal reflux disease without esophagitis K21.9 Esophagitis presence: without esophagitis Additional Codes PHQ-9 - 65851 - PHQ-9 Billing: Yes ([id number]) Assessment & Plan Assessment & Plan (1) Gastritis: Code(s): K29.70 - Gastritis, unspecified, without bleeding Category: Medical (2) Asthma: Code(s): J45.909 - Unspecified asthma, uncomplicated Category: Medical Qualifiers: Asthma severity: severe Asthma persistence: persistent Asthma complication type: uncomplicated Qualified Code(s): J45.50 - Severe persistent asthma, uncomplicated (3) Atherosclerosis of abdominal aorta: Code(s): I70.0 - Atherosclerosis of aorta Category: Medical (4) Colon cancer screening: Code(s): Z12.11 - Encounter for screening for malignant neoplasm of colon Category: Medical (5) Generalized anxiety disorder: Comment: Panic disorder conversion schizotypal personality disorder depression Dr. Hector Bhandari [phone] [facility] Code(s): F41.1 - Generalized anxiety disorder Category: Medical (6) Hypercholesterolemia: Code(s): E78.00 - Pure hypercholesterolemia, unspecified Category: Medical (7) GERD (gastroesophageal reflux disease): Code(s): K21.9 - Gastro-esophageal reflux disease without esophagitis Category: Medical Qualifiers: Esophagitis presence: without esophagitis Qualified Code(s): K21.9 - Gastro-esophageal reflux disease without esophagitis Plan: will be seeing Gastro Plan - For asthma management: Continued use of albuterol, Singulair, Xolair, and Zyrtec. Monitor for symptom control and adherence to currently prescribed pharmacotherapy. - For GERD and gastritis: Continue Dexilant, and dietary modifications including avoidance of triggering foods such as spicy foods and tomato-based products. Ensure early evening meals to prevent reflux exacerbations. - Regarding the overweight condition: Encourage continued use of exercise equipment and introduction of light abdominal exercises progressively to avoid muscle cramping. Consider recommendations for a structured weight management plan focusing on diet, physical activity, and behavioral changes. - For insomnia: Continued management with Lunesta, trazodone, amitriptyline, and clonazepam. Monitor effectiveness and adjust dosages if necessary under careful prescription guidelines. - For the hiatal hernia: Monitor for symptom exacerbation and associated reflux complaints. Provide guidance on dietary choices and meal timings. - Vaccinations: Proceed with administering Tdap and pneumonia vaccines as per the patient?s request and vaccination schedule. - Further diagnostic testing: Order fasting cholesterol panel to monitor cardiovascular risk factors. Orders: Orders Complete Blood Count Auto Diff Today I70.0 - Atherosclerosis of aorta Comprehensive Met. Panel Today I70.0 - Atherosclerosis of aorta Free T4 (Free Thyroxine) Today I70.0 - Atherosclerosis of aorta Lipid Panel Today E78.00 - Pure hypercholesterolemia, unspecified, I70.0 - Atherosclerosis of aorta Thyroid Stimulating Hormone Today I70.0 - Atherosclerosis of aorta Vitamin B12 and Folate Today I70.0 - Atherosclerosis of aorta Vitamin D 25-OH Total Today I70.0 - Atherosclerosis of aorta UA CC w/rflx Micro + Cult Today I70.0 - Atherosclerosis of aorta, R30.0 - Dysuria TDaP Immunization Today Z23 - Encounter for immunization Pneumococcal 20 Immunization Today Z23 - Encounter for immunization Hemoglobin A1c Today I70.0 - Atherosclerosis of aorta Medications: Refilled trazodone 50 mg PO BEDTIME PRN 90 tabs 3RF sleep F41.1 - Generalized anxiety disorder eszopiclone (Lunesta) 3 mg PO BEDTIME 30 tabs 0RF Discontinued triamcinolone acetonide (Nasacort) administer into each nostril Discontinued Reason: Patient Completed Course 2 sprays intranasal DAILY 16.9 mL 0RF J30.89 - Other allergic rhinitis cholestyramine-aspartame 4 gram (Prevalite) administer w/meal; avoid other meds within 1hr before or 4-6hr after dose Discontinued Reason: Doctor's Order 4 grams PO BID 60 ea 11RF R03.0 - Elevated blood-pressure reading, without diagnosis of hypertension
== END 2024-12-09 09:37 | disposition home or self-care (01) ==
PROVIDERS: PCP Internal Medicine; Visit Provider Internal Medicine
DX: K29.70 Gastritis, unspecified, without bleeding (principal); J45.50 Severe persistent asthma, uncomplicated; I70.0 Atherosclerosis of aorta; Z12.11 Encounter for screening for malignant neoplasm of colon; F41.1 Generalized anxiety disorder; E78.00 Pure hypercholesterolemia, unspecified; K21.9 Gastro-esophageal reflux disease without esophagitis; Z23 Encounter for immunization

== ENCOUNTER → 2024-12-09 08:11 | Outpatient (BNVA) | payer OTHER, SELFPAY | PROVIDERS: PCP Internal Medicine; Visit Provider Internal Medicine | DX: Z23 Encounter for immunization (principal); K29.70 Gastritis, unspecified, without bleeding; I70.0 Atherosclerosis of aorta; F41.1 Generalized anxiety disorder; E78.00 Pure hypercholesterolemia, unspecified; K21.9 Gastro-esophageal reflux disease without esophagitis | CPT/HCPCS: 90471; 90677; 90715; 96127; 99212 ==

== ENCOUNTER 2024-12-18 16:27 | Outpatient (AMB) | payer OTHER, SELFPAY ==
--- OUTSIDE RECORDS SUMMARY | 2024-12-18 16:28 | XMS_ITS | Encounter Summary ---
Author Organization [facility] Address [address] [place] [address] Care Team Providers Care Health Outcomes Liaison Name Role Phone Quinn Herndon MD Primary Care Provider [phone] April Vizcaino MD Primary Care Provider Unavailabl e Encounter Details Date Type Department Care Team Description 12/16/2015 Orders Only Adult Medicine [address] [phone] Joshua Palacios PA-C [address] [place] [address] Social History Tobacco Use Types Packs/Day Years Used Date Smoking Tobacco: Former Cigarettes 0.3 Q uit: 09/06/2015 Comments:Started @ age 18 Alcohol Use Standard Drinks/Week Comments No 0 (1 standard drink = 0.6 oz pur e alcohol) Sex Assigned at Date Recorded Not on file documented as of this encounter Plan of Treatment Not on file documented as of this encounter Visit Diagnoses Not on filedocumented in this encounter Care Teams Health Outcomes Liaison Relationship Specialty Start Date End Date Quinn Herndon MD [address] [place] [id number] PCP - General Internal Medicine 08/25/13 11/26/16 April Vizcaino MD [address] [place] [address] [id number] PCP - General Internal Medicine 11/27/16 documented as of this encounter
--- OUTSIDE RECORDS SUMMARY | 2024-12-18 16:28 | XMS_ITS | Encounter Summary ---
Author Organization [facility] Address [address] [place] [address] Care Team Providers Care Pad Machine Operator Name Role Phone Quinn Herndon MD Primary Care Provider April Vizcaino MD Primary Care Provider Unavailabl e Encounter Details Date Type Department Care Team Description 07/24/2015 Night Triage Doc Medical Records [address] [place] [id number] Abstract, Provider Social History Tobacco Use Types Packs/Day Years Used Date Smoking Tobacco: Every Day Cigarettes 0.5 Smokeless Tobacco: Current Comments:Started @ age 18 Alcohol Use Standard Drinks/Week Comments No 0 (1 standard drink = 0.6 oz pur e alcohol) Sex Assigned at Date Recorded Not on file documented as of this encounter Plan of Treatment Not on file documented as of this encounter Visit Diagnoses Not on filedocumented in this encounter Care Teams Pad Machine Operator Relationship Specialty Start Date End Date Quinn Herndon MD [address] [place] [address] [phone] PCP - General Internal Medicine 08/25/13 11/26/16 April Vizcaino MD [address] [place] [id number] PCP - General Internal Medicine 11/27/16 documented as of this encounter
--- OUTSIDE RECORDS SUMMARY | 2024-12-18 16:28 | XMS_ITS | Clinical Summary ---
Author Organization [facility] it Address [address] [place] [address] Care Team Providers Care Dairy Department Manager Name Role Phone April Vizcaino MD Primary Care Provider [phone] Social History Tobacco Use Types Packs/Day Years [...] RESULTING AGENCY - 06/18/2018 9:05 AM EDT [id number] THINPREP PAP, IMAGED: ATYPICAL SQUAMOUS CELLS OF UNDETERMINED SIGNIFICANCE (ASCUS) ??. RESULT OF APTIMA HIGH RISK HPV ASSAY: ?? POSITIVE ? (SEROTYPES 16,18,31,33,35,39,45,51,52,56,58,59,66,68) MIKKI LRAA(ASCP) (CASE SCREENED 06 16 2018) DENNIS VANCE M.D., PATHOLOGIST (CASE ELECTRONICALLY SIGNED 06 16 2018) ADEQUACY: SATISFACTORY. ENDOCERVICAL/TRANSFORMATION ZONE COMPONENT PRESENT. SOURCE: THINPREP PAP HPV ANY DX: ??REFLEX 16 AND 18, CERVICAL, IMAGED: CLINICAL INFORMATION: HPV ANY DIAGNOSIS. Z12.4, Z01.419, PAP HX: NEGATIVE dAina Hickey MD LAB CYTOLOGY ORDERAB LES HISTORICAL [...] Recently Relevant to Health Maintenance Care Teams Dairy Department Manager Relationship Specialty Start Date End Date April Vizcaino MD [address] [place] [address] Dr Rosa [address] [facility] [place] [address] PCP - General Internal Medicine 11/27/16
--- OUTSIDE RECORDS SUMMARY | 2024-12-18 16:28 | XMS_ITS | Encounter Summary ---
Author Organization [facility] [employer] [facility] Address [address] [place] [address] Care Team Providers Care Tape Making Machine Operator Name Role Phone Quinn Herndon MD Primary Care Provider [phone] April Vizcaino MD Primary Care Provider Unavailabl e Encounter Details Date Type Department Care Team Description 02/09/2016 Transfer Records Medical Records [address] [place] [address] Social History Tobacco Use Types Packs/Day Years [...] on filedocumented in this encounter Care Teams Tape Making Machine Operator Relationship Specialty Start Date End Date Quinn Herndon MD [address] [place], [place] [phone] PCP - General Internal Medicine 08/25/13 11/26/16 April Vizcaino MD [address] [place], [place] [phone] PCP - General Internal Medicine 11/27/16 documented as of this encounter
--- OUTSIDE RECORDS SUMMARY | 2024-12-18 16:28 | XMS_ITS | Encounter Summary ---
Author Organization [facility] [employer] [facility] Address [address] [place] [address] Care Team Providers Care Summer Camp Counselor Name Role Phone Quinn Herndon MD Primary Care Provider [phone] April Vizcaino MD Primary Care Provider Unavailabl e Encounter Details Date Type Department Care Team Description 02/17/2014 Cross Cut Sawyer Report Medical Records [address] [place] [address] Nick Bishop Social History Tobacco Use Types Packs/Day Years Used Date Smoking Tobacco: Some Days Cigarettes 0.3 Smokeless Tobacco: Never Comments:Started @ age 18, u sing patch Alcohol Use Standard Drinks/Week Comments No 0 (1 standard drink = 0.6 oz pur e alcohol) Sex Assigned at Date Recorded Not on file documented as of this encounter Plan of Treatment Not on file documented as of this encounter Visit Diagnoses Not on filedocumented in this encounter Care Teams Summer Camp Counselor Relationship Specialty Start Date End Date Quinn Herndon MD [address] [place], [place] [phone] PCP - General Internal Medicine 08/25/13 11/26/16 April Vizcaino MD [address] [place] [address] PCP - General Internal Medicine 11/27/16 documented as of this encounter
--- OUTSIDE RECORDS SUMMARY | 2024-12-18 16:28 | XMS_ITS | Data Portability ---
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 anxiety c/o return of productive cough, SOB, [...] Orders prednisone 20 mg tablet 2023 024 [facility] #[id number], [address], [place], [id number], 22:14:25 levofloxaci n 750 mg tablet 2023 024 [facility] #[id number], [address], [place], [id number], 4 22:14:25 levofloxaci n 750 mg tablet 2023 [facility] #[id number], [address], [place], [id number], 4 22:17:04 prednisone 10 mg tablet 2023 024 [facility] #[id number], [address], [place], [id number], 4 22:17:04 fluconazole 150 mg tablet 2023 [facility] #[id number], [address], [place], [id number], 22:19:10 Patient TargetsNo targets recorded. Patient InstructionsNo instructions recorded. Reason for Referral None Reported. Medical Equipment None Reported. Allergies Allergen ID Allergen Name Allergen Category Reaction Reaction Severity Criticality Documentation Date Start Date Code Code System Note Provider Name and Address Organization Details Recorded Time 70261 oxycodone medicatio n Not available Not available Not available 10/12/2024 7804 RxNorm Not Available [facility] - production 20:09:51 79340 Sudafed medicatio n Not available Not available Not available 10/12/202495803 2 RxNorm Not Available [facility] - production 20:09:51 Medications Name Sig Start [...] SNOMED-CT Code Diagnosis ICD10 Code Diagnosis Note [id number] Sonia Good MD Main - [facility] [address] [place] [phone] 10/12/2024 21:00:35 10/12/2024 23:38:11 Acute exacerbation of chronic obstructive pulmonary disease 334332534 J44.1 Candidiasis of vagina 72 724389 B37.31 Health Concerns Section Related Observation LastModified by Organization Detai ls LastModified Time None Recorded Concern Status LastModified by Organization Details LastModified Time None Recorded Advance Directives Directive None Recorded Payers Encounter Date Sequence Insurance Name Policy Number Policy Benitez Covered Member ID Benitez Member ID Guarantor Name 10/12/2024 1 [facility] - DOS ON OR AFTER 2023 - DUAL ELIGIBLE - CUSTODIAL OPTIONS AND ONE CARE (MEDICARE REPLACEMENT/ADV ANTAGE - HMO) Zoila Giron [id number] Zoila Giron Notes Date Note Type Note [...] ................... ................... ................... ................... ................... ................... ........ Sub Prior Note From Angel Shabazz: This 54-year-old female [...] Patient is under the care of a audio visual collections coordinator is scheduled to see him in two weeks. Patient also uses cetirizine, Flonase, Breo, and albuterol nebulizer treatments. Patient states the symptoms are consistent with previous flareups.Patient presents awake and alert, in no acute distress. Her vital signs are reasonably stable and she is afebrile. Nonfocal neurological exam. Normal gait. Mild diffuse expiratory wheezing. Abdomen is soft, nontender, nondistended. No lower extremity edema.[facility] spoke directly to patient and provided significant education. This patient was treated with levofloxacin 750 mg PO and prednisone 40 mg. Patient was instructed to follow up with her audio visual collections coordinator tomorrow and to present to the ED for any new or worsening symptoms, which I reviewed with her. The patient was given the opportunity to ask questions to the [facility] and myself and is agreeable to this plan. ................... ................... ................... ................... ................... ................... ................... ........ [facility] Consulted: Sonia Good ................... ................... ................... ................... ................... ................... ................... ........ Disposition: Fulfilled Sonia Good MD [address] [facility],[address], [place], [address], [place] - Mt[employer]NATALYA, SHERRI 10/12/2024 22:19:58 OBGyn Episode No OBEpisode recorded.
--- OUTSIDE RECORDS SUMMARY | 2024-12-18 16:28 | XMS_ITS | Encounter Summary ---
Author Organization [facility] Address [address] [place] [address] Care Team Providers Care Lacquer Machine Feeder Name Role Phone Quinn Herndon MD Primary Care Provider [phone] April Vizcaino MD Primary Care Provider Unavailabl e Reason for Referral * Specialist (Routine) - Authorized/Booked Specialty Diagnoses / Procedures Referred By Keisha singh Referred To Contact ORTHOPEDICS / Orthopedic Procedures REFERRAL TO ORTHOPEDICS Greg Lancaster PA-C [address] [place] [address] [facility] [address] [place] [address] [address] [place] [address] Referral ID Status Reason Start Date Expiration Date V isits Requested Visits Authorized SEE NOTE Authorized/B ooked 09/05/2015 12/15/2015 1 1 Encounter Details Date Type Department Care Team Description 09/05/2015 Orders Only Adult Medicine [address] [address] Greg Lancaster PA-C Social History Tobacco Use Types Packs/Day Years Used Date Smoking Tobacco: Every Day Cigarettes 0.3 Smokeless Tobacco: Current Comments:Started @ age 18 Alcohol Use Standard Drinks/Week Comments No 0 (1 standard drink = 0.6 oz pur e alcohol) Sex Assigned at Date Recorded Not on file documented as of this encounter Plan of Treatment Not on file documented as of this encounter Visit Diagnoses Not on filedocumented in this encounter Care Teams Lacquer Machine Feeder Relationship Specialty Start Date End Date Quinn Herndon MD [address] [place] [address] PCP - General Internal Medicine 08/25/13 11/26/16 April Vizcaino MD [address] [place] [address] PCP - General Internal Medicine 11/27/16 documented as of this encounter
--- OUTSIDE RECORDS SUMMARY | 2024-12-18 16:28 | XMS_ITS | Encounter Summary ---
Author Organization [employer] [facility] Address [address] [place] [address] Care Team Providers Care Microbiology Teacher Name Role Phone Quinn Herndon MD Primary Care Provider [phone] April Vizcaino MD Primary Care Provider Unavailabl e Encounter Details Date Type Department Care Team Description 02/28/2015 Night Triage Doc Medical Records [address] [place] [address] Abstract, Provider Social History Tobacco Use Types Packs/Day Years Used Date Smoking Tobacco: Some Days Cigarettes Smokeless Tobacco: Never Comments:Started @ age 18, u sing patch 3-4 cigs per day Alcohol Use Standard Drinks/Week Comments No 0 (1 standard drink = 0.6 oz pur e alcohol) Sex Assigned at Date Recorded Not on file documented as of this encounter Plan of Treatment Not on file documented as of this encounter Visit Diagnoses Not on filedocumented in this encounter Care Teams Microbiology Teacher Relationship Specialty Start Date End Date Quinn Herndon MD [address] [place] [phone] PCP - General Internal Medicine 08/25/13 11/26/16 April Vizcaino MD [address] [place] [address] PCP - General Internal Medicine 11/27/16 documented as of this encounter
--- OUTSIDE RECORDS SUMMARY | 2024-12-18 16:28 | XMS_ITS | Encounter Summary ---
Author Organization [facility] [employer] [facility] Address [address] [place] [address] Care Team Providers Care Occupational Health Physiotherapist Name Role Phone Quinn Herndon MD Primary Care Provider [phone] April Vizcaino MD Primary Care Provider Unavailabl e Encounter Details Date Type Department Care Team Description 10/06/2014 Organic Section Technical Lead Report Medical Records [address] [place] [address] Nick Bishop Social History Tobacco Use Types [...] on filedocumented in this encounter Care Teams Occupational Health Physiotherapist Relationship Specialty Start Date End Date Quinn Herndon MD [address] [place] [address] PCP - General Internal Medicine 08/25/13 11/26/16 April Vizcaino MD [address] [place] [address] PCP - General Internal Medicine 11/27/16 documented as of this encounter
--- OUTSIDE RECORDS SUMMARY | 2024-12-18 16:28 | XMS_ITS | Encounter Summary ---
Author Organization [employer] [facility] Address [address] [place] [address] Care Team Providers Care Geriatric Social Worker Name Role Phone Quinn Herndon MD Primary Care Provider [phone] April Vizcaino MD Primary Care Provider Unavailabl e Encounter Details Date Type Department Care Team Description 04/05/2014 Night Triage Doc Medical Records [address] [place] [address] Abstract, Provider Social History Tobacco Use Types [...] on filedocumented in this encounter Care Teams Geriatric Social Worker Relationship Specialty Start Date End Date Quinn Herndon MD [address] [place] [phone] PCP - General Internal Medicine 08/25/13 11/26/16 April Vizcaino MD [address] [place] [address] PCP - General Internal Medicine 11/27/16 documented as of this encounter
--- OUTSIDE RECORDS SUMMARY | 2024-12-18 16:28 | XMS_ITS | Encounter Summary ---
Author Organization [facility] [facility] Address [address] [place] [address] Care Team Providers Care Cloth Napping Supervisor Name Role Phone Quinn Herndon MD Primary Care Provider [phone] April Vizcaino MD Primary Care Provider Unavailabl e Encounter Details Date Type Department Care Team Description 01/01/2014 Night Triage Doc Medical Records [address] [place] [address] Abstract, Provider Social History Tobacco Use Types Packs/Day Years Used Date Smoking Tobacco: Every Day Cigarettes 0.3 Smokeless Tobacco: Never Comments:Started @ age 18 Alcohol Use Standard Drinks/Week Comments No 0 (1 standard drink = 0.6 oz pur e alcohol) Sex Assigned at Date Recorded Not on file documented as of this encounter Plan of Treatment Not on file documented as of this encounter Visit Diagnoses Not on filedocumented in this encounter Care Teams Cloth Napping Supervisor Relationship Specialty Start Date End Date Quinn Herndon MD [address] [place] [phone] PCP - General Internal Medicine 08/25/13 11/26/16 April Vizcaino MD [address] [place] [address] PCP - General Internal Medicine 11/27/16 documented as of this encounter
--- OUTSIDE RECORDS SUMMARY | 2024-12-18 16:28 | XMS_ITS | Encounter Summary ---
Author Organization [employer] [facility] Address [address] [place] [address] Care Team Providers Care Manager Configuration Name Role Phone Quinn Herndon MD Primary Care Provider [phone] April Vizcaino MD Primary Care Provider Unavailabl e Encounter Details Date Type Department Care Team Description 09/29/2013 Night Triage Doc Medical Records [address] [place] [address] Abstract, Provider Social History Tobacco Use Types Packs/Day Years Used Date Smoking Tobacco: Every Day Cigarettes 0.5 Smokeless Tobacco: Never Comments:Started @ age 18 Alcohol Use Standard Drinks/Week Comments No 0 (1 standard drink = 0.6 oz pur e alcohol) Sex Assigned at Date Recorded Not on file documented as of this encounter Plan of Treatment Not on file documented as of this encounter Visit Diagnoses Not on filedocumented in this encounter Care Teams Manager Configuration Relationship Specialty Start Date End Date Quinn Herndon MD [address] [place] [phone] PCP - General Internal Medicine 08/25/13 11/26/16 April Vizcaino MD [address] [place] [address] PCP - General Internal Medicine 11/27/16 documented as of this encounter
--- OUTSIDE RECORDS SUMMARY | 2024-12-18 16:28 | XMS_ITS | Encounter Summary ---
Author Organization [facility] Address [address] [place] [address] Care Team Providers Care Senior Quality Methods Specialist Name Role Phone April Vizcaino MD Primary Care Provider Unavailabl e Encounter Details Date Type Department Care Team Description 12/11/2016 Hospital Medical Records [address] [place] [address] Otf Chatterjee MD [address] [place] [address] Social History Tobacco Use Types Packs/Day Years Used Date Smoking Tobacco: Every Day Cigarettes 0.3 Last attempted to quit: 09/06/2015 Smokeless Tobacco: Former Comments:Started @ age 18 Alcohol Use Standard Drinks/Week Comments No 0 (1 standard drink = 0.6 oz pur e alcohol) Sex Assigned at Date Recorded Not on file documented as of this encounter Plan of Treatment Not on file documented as of this encounter Visit Diagnoses Not on filedocumented in this encounter Care Teams Senior Quality Methods Specialist Relationship Specialty Start Date End Date April Vizcaino MD PCP - General Internal Medicine 11/27/16 documented as of this encounter
--- OUTSIDE RECORDS SUMMARY | 2024-12-18 16:28 | XMS_ITS | Encounter Summary ---
Author Organization [facility] Address [address] [place] [address] Care Team Providers Care Conveyor Line Battery Charger Name Role Phone Quinn Herndon MD Primary Care Provider [phone] April Vizcaino MD Primary Care Provider Unavailabl e Encounter Details Date Type Department Care Team Description 09/28/2014 Release of Information Medical Records [address] [place] [address] Abstract, Provider Social History Tobacco Use Types [...] on filedocumented in this encounter Care Teams Conveyor Line Battery Charger Relationship Specialty Start Date End Date Quinn Herndon MD [address] [place], [place] [phone] PCP - General Internal Medicine 08/25/13 11/26/16 April Vizcaino MD [address] [place] [address] PCP - General Internal Medicine 11/27/16 documented as of this encounter
--- OUTSIDE RECORDS SUMMARY | 2024-12-18 16:28 | XMS_ITS | Encounter Summary ---
Author Organization [employer] [facility] Address [address] [place] [address] Care Team Providers Care Bar Catcher Name Role Phone April Vizcaino MD Primary Care Provider Unavailabl e Encounter Details Date Type Department Care Team Description 01/01/2017 SCAN Medical Records [address] [place] [address] Abstract, Provider Social History Tobacco Use Types Packs/Day Years Used Date Smoking Tobacco: Former Cigarettes 0.3 Q uit: 09/06/2015 Smokeless Tobacco: Former Comments:Started @ age 18 Alcohol Use Standard Drinks/Week Comments No 0 (1 standard drink = 0.6 oz pur e alcohol) Sex Assigned at Date Recorded Not on file documented as of this encounter Plan of Treatment Not on file documented as of this encounter Visit Diagnoses Not on filedocumented in this encounter Care Teams Bar Catcher Relationship Specialty Start Date End Date April Vizcaino MD PCP - General Internal Medicine 11/27/16 documented as of this encounter
--- OUTSIDE RECORDS SUMMARY | 2024-12-18 16:28 | XMS_ITS | Encounter Summary ---
Author Organization [employer] [facility] Address [address] [place] [address] Care Team Providers Care Ocean Forwarder Name Role Phone April Vizcaino MD Primary Care Provider Unavailabl e Encounter Details Date Type Department Care Team Description 05/24/2017 SCAN Medical Records [address] [place] [address] Abstract, Provider Social History Tobacco Use Types [...] on filedocumented in this encounter Care Teams Ocean Forwarder Relationship Specialty Start Date End Date April Vizcaino MD PCP - General Internal Medicine 11/27/16 documented as of this encounter
--- OUTSIDE RECORDS SUMMARY | 2024-12-18 16:28 | XMS_ITS | Encounter Summary ---
Author Organization [facility] Address [address] [place] [address] Care Team Providers Care Post Acute Care Registered Nurse Name Role Phone Quinn Herndon MD Primary Care Provider [phone] April Vizcaino MD Primary Care Provider Unavailabl e Encounter Details Date Type Department Care Team Description 11/24/2016 Night Triage Doc Medical Records [address] [place] [address] Abstract, Provider Social History Tobacco Use Types [...] on filedocumented in this encounter Care Teams Post Acute Care Registered Nurse Relationship Specialty Start Date End Date Quinn Herndon MD [address] [place] [address] [phone] PCP - General Internal Medicine 08/25/13 11/26/16 April Vizcaino MD [address] [place] [address] PCP - General Internal Medicine 11/27/16 documented as of this encounter
--- OUTSIDE RECORDS SUMMARY | 2024-12-18 16:28 | XMS_ITS | Encounter Summary ---
Author Organization [facility] Address [address] [place] [address] Care Team Providers Care Chief Of Surgery Name Role Phone Quinn Herndon MD Primary Care Provider April Vizcaino MD Primary Care Provider Unavailabl e Reason for Visit * Reason Onset Date Comments Provider Call Back 11/19/2013 Encounter Details Date Type Department Care Team Description 11/19/2013 Telephone Gastroenterology - [address] [address] Joshua Barlow PA-C Provider Call Back Social History Tobacco Use Types Packs/Day Years Used Date Smoking Tobacco: Every Day Cigarettes 0.5 Smokeless Tobacco: Current Comments:Started @ age 18 Alcohol Use Standard Drinks/Week Comments No 0 (1 standard drink = 0.6 oz pur e alcohol) Sex Assigned at Date Recorded Not on file documented as of this encounter Miscellaneous Notes * Telephone Encounter - Joshua Barlow PA-C - 11/19/2013 11:44 AM EST The patient's lab studies were reviewed on 10/08/2013 and were normal. These results were released to the patient via a [employer] message and it appears that she reviewed them on 10/23/2013. The patient's gastric emptying study results were reviewed on 10/26/2013 and were negative for gastroparesis. These results were released to the patient via a [employer] message and appears she reviewed them on 11/06/2013. I'm not sure what other results she may be looking for. * Telephone Encounter - Shivani Lira - 11/19/2013 11:38 AM EST Patient calling to see if her results from the test that you had ordered had came back documented in this encounter Plan of Treatment Not on file documented as of this encounter Visit Diagnoses Not on filedocumented in this encounter Care Teams Chief Of Surgery Relationship Specialty Start Date End Date Quinn Herndon MD [address] [place] [phone] PCP - General Internal Medicine 08/25/13 11/26/16 April Vizcaino MD [address] [place] [phone] PCP - General Internal Medicine 11/27/16 documented as of this encounter
--- OUTSIDE RECORDS SUMMARY | 2024-12-18 16:28 | XMS_ITS | Encounter Summary ---
Author Organization [facility] Address [address] [place] [address] Care Team Providers Care Before School Babysitter Name Role Phone Qunin Herndon MD Primary Care Provider [phone] April Vizcaino MD Primary Care Provider Unavailabl e Reason for Visit * Reason Comments E-prescribe Rx Request Encounter Details Date Type Department Care Team Description 02/23/2014 Refill Adult Medicine [facility] [address] [place] [address] [phone] Quinn Herndon MD [address] [place] [address] [phone] E-prescribe Rx Request Social History Tobacco Use Types Packs/Day Years Used Date Smoking Tobacco: Some Days Cigarettes 0.3 Smokeless Tobacco: Never Comments:Started @ age 18, u sing patch Alcohol Use Standard Drinks/Week Comments No 0 (1 standard drink = 0.6 oz pur e alcohol) Sex Assigned at Date Recorded Not on file documented as of this encounter Miscellaneous Notes * Telephone Encounter - Zoya Rousseau - 02/23/2014 11:20 AM EDT Patient would like script to be: E-PRESCRIBED/FAXED TO PHARMACY WHEN WAS THE PATIENT'S LAST APPOINTMENT IN ADULT MEDICINE? 01/04/14 WHEN WAS THE LAST TIME THE PATIENT SAW THEIR PCP? 11/05/13 Does patient have an upcoming appointment? Yes 08/06/14 (THE MEDICATION REQUESTED IS ON THE MED LIST ABOVE) All of the medications requested were on the CURRENT MEDS list Did you check the Pharmacy information above?: YES Patient wants: 30 -day supply Is this a mail order prescription request ? NO Patients current insurance carrier is: [place] Product Type: MEDICARE [id number] documented in this encounter Plan of Treatment Not on file documented as of this encounter Visit Diagnoses Not on filedocumented in this encounter Care Teams Before School Babysitter Relationship Specialty Start Date End Date Quinn Herndon MD [address] [place] [address] 32305 PCP - General Internal Medicine 08/25/13 11/26/16 April Vizcaino MD [address] [place] [address] 23448 PCP - General Internal Medicine 11/27/16 documented as of this encounter
--- OUTSIDE RECORDS SUMMARY | 2024-12-18 16:28 | XMS_ITS | Encounter Summary ---
Author Organization [facility] Address [address] [place] [address] Care Team Providers Care Professor Of Biblical Studies Name Role Phone Quinn Herndon MD Primary Care Provider [phone] April Vizcaino MD Primary Care Provider Unavailabl e Reason for Visit * Reason Onset Date Comments TEST RESULTS 01/05/2014 Encounter Details Date Type Department Care Team Description 01/05/2014 Telephone Adult Medicine [facility] [address] [place] [address] [phone] Quinn Herndon MD [address] [place] [address] 57634 TEST RESULTS; Social History Tobacco Use Types Packs/Day Years Used Date Smoking Tobacco: Former Cigarettes 0.3 Smokeless Tobacco: Never Comments:Started @ age 18, u sing patch Alcohol Use Standard Drinks/Week Comments No 0 (1 standard drink = 0.6 oz pur e alcohol) Sex Assigned at Date Recorded Not on file documented as of this encounter Miscellaneous Notes * Telephone Encounter - Quinn Herndon MD - 01/05/2014 4:26 PM EST Noted and thanks * Telephone Encounter - Zahra Whaley PA-C - 01/05/2014 4:16 PM EST I discussed with the patient the normal lab results except the elevated WBC count which is decreased from previously, likely due to effect of oral prednisone. I have advised her as well, of referral to rheumatology for widespread myalgias. Dr. Herndon, patient did make a request that I inform you of these developments, which are further detailed in my note from yesterday, 01/04/14. * Telephone Encounter - Nani Trevizo - 01/05/2014 2:39 PM EST Inform patient: ANY URGENT OR ABNORMAL RESULTS WIILL RESULT IN A CALL BACK TO THE PATIENT KEYLA. Type of test: : LAB WORK Date test was performed: 01/04/14 Where [place] [facility] [place] test?: ZAHRA GARDNER Is the doctor here today?: YES Can the message wait until the doctor returns?: NO IF PATIENT'S PCP IS NOT IN INSTRUCT PATIENT THAT THEY WILL RECEIVE A CALL BACK WHEN THE PCP IS IN THE OFFICE NEXT. documented in this encounter Plan of Treatment Not on file documented as of this encounter Visit Diagnoses Not on filedocumented in this encounter Care Teams Professor Of Biblical Studies Relationship Specialty Start Date End Date Quinn Herndon MD [address] [place] [address] 20313 PCP - General Internal Medicine 08/25/13 11/26/16 April Vizcaino MD [address] [place] [address] 01251 PCP - General Internal Medicine 11/27/16 documented as of this encounter
--- OUTSIDE RECORDS SUMMARY | 2024-12-18 16:28 | XMS_ITS | Encounter Summary ---
Author Organization [facility] Address [address] [place] [address] Care Team Providers Care Quarantine Inspector Name Role Phone Quinn Herndon MD Primary Care Provider [phone] April Vizcaino MD Primary Care Provider Unavailabl e Encounter Details Date Type Department Care Team Description 12/16/2013 Transfer Records Medical Records [address] [place] [address] 53332 Abstract, Provider Social History Tobacco Use Types [...] on filedocumented in this encounter Care Teams Quarantine Inspector Relationship Specialty Start Date End Date Quinn Herndon MD [address] [place] [address] [phone] PCP - General Internal Medicine 08/25/13 11/26/16 April Vizcaino MD [address] [place] [address] 97842 PCP - General Internal Medicine 11/27/16 documented as of this encounter
--- OUTSIDE RECORDS SUMMARY | 2024-12-18 16:28 | XMS_ITS | Encounter Summary ---
Author Organization [facility] Address [address] [place] [address] Care Team Providers Care Rack Puller Name Role Phone Quinn Herndon MD Primary Care Provider [phone] April Vizcaino MD Primary Care Provider Unavailabl e Encounter Details Date Type Department Care Team Description 06/18/2014 Night Triage Doc Medical Records [address] [place] [address] 92702 Abstract, Provider Social History Tobacco Use Types [...] on filedocumented in this encounter Care Teams Rack Puller Relationship Specialty Start Date End Date Quinn Herndon MD [address] [place] [address] [phone] PCP - General Internal Medicine 08/25/13 11/26/16 April Vizcaino MD [address] [place] [address] 17282 PCP - General Internal Medicine 11/27/16 documented as of this encounter
--- OUTSIDE RECORDS SUMMARY | 2024-12-18 16:28 | XMS_ITS | Encounter Summary ---
Author Organization [facility] Address [address] [place] [address] Care Team Providers Care Water Pumping Station Engineer Name Role Phone Quinn Herndon MD Primary Care Provider [phone] April Vizcaino MD Primary Care Provider Unavailabl e Encounter Details Date Type Department Care Team Description 10/01/2015 Night Triage Doc Medical Records [address] [place] [address] 17643 Abstract, Provider Social History Tobacco Use Types [...] on filedocumented in this encounter Care Teams Water Pumping Station Engineer Relationship Specialty Start Date End Date Quinn Herndon MD [address] [place], [place] [phone] PCP - General Internal Medicine 08/25/13 11/26/16 April Vizcaino MD [address] [place] [address] 17044 PCP - General Internal Medicine 11/27/16 documented as of this encounter
--- OUTSIDE RECORDS SUMMARY | 2024-12-18 16:28 | XMS_ITS | Encounter Summary ---
Author Organization [facility] Address [address] [place] [address] Care Team Providers Care Drawbridge Operator Name Role Phone Quinn Herndon MD Primary Care Provider [phone] April Vizcaino MD Primary Care Provider Unavailabl e Encounter Details Date Type Department Care Team Description 10/12/2015 Release of Information Medical Records [address] [place] [address] 21046 Abstract, Provider Social History Tobacco Use Types [...] on filedocumented in this encounter Care Teams Drawbridge Operator Relationship Specialty Start Date End Date Quinn Herndon MD [address] [place], [place] [phone] PCP - General Internal Medicine 08/25/13 11/26/16 April Vizcaino MD [address] [place] [address] 66833 PCP - General Internal Medicine 11/27/16 documented as of this encounter
--- OUTSIDE RECORDS SUMMARY | 2024-12-18 16:28 | XMS_ITS | Encounter Summary ---
Author Organization [facility] Address [address] [place] [address] Care Team Providers Care Flight Coordinator Name Role Phone April Vizcaino MD Primary Care Provider Unavailabl e Encounter Details Date Type Department Care Team Description 02/28/2018 Transfer Records Medical Records [address] [place] [address] 10642 Abstract, Provider Social History Tobacco Use Types [...] on filedocumented in this encounter Care Teams Flight Coordinator Relationship Specialty Start Date End Date April Vizcaino MD PCP - General Internal Medicine 11/27/16 documented as of this encounter
--- NOTE | 2024-12-18 16:29 | A.OFFPC_ITS ---
Intake Visit Reasons: med review Brick Stacker Required: No Accompanied by: Self / Same As Patient Allergies Clindamycin HCl Allergy (Unknown, Verified 12/18/24 16:29) esophagus, trouble swallowing gabapentin Allergy (Unknown, Verified 12/18/24 16:29) Unknown ibuprofen Allergy (Unknown, Verified 12/18/24 16:29) nausea metoclopramide [Reglan] Allergy (Unknown, Verified 12/18/24 16:29) jittery NSAIDS (Non-Steroidal Anti-Inflamma [NSAIDS (NON-STEROIDAL ANTI-INFLAMMA] Allerg y (Unknown, Verified 12/18/24 16:29) STOMACH UPSET oxycodone [OXYCODONE] Allergy (Unknown, Verified 12/18/24 16:29) palpitations, hyper pseudoephedrine [Sudafed] Allergy (Unknown, Verified 12/18/24 16:29) Unknown tramadol [TRAMADOL] Allergy (Unknown, Verified 12/18/24 16:29) palpitations, hyper vilazodone [Viibryd] Allergy (Unknown, Verified 12/18/24 16:29) dry mouth and tremors zolpidem [Ambien] Allergy (Unknown, Verified 12/18/24 16:29) Unknown bupropion [BUPROPION] Adverse Reaction (Intermediate, Verified 12/18/24 16:29) HTN, BLURRY VISION quetiapine [From Seroquel] Adverse Reaction (Intermediate, Verified 12/18/24 16:29) patient states levofloxacin Adverse Reaction (Unknown, Verified 12/18/24 16:29) weakness, nausea/vomiting Tobacco use date assessed: 12/09/24 Dental Screening Dental Screen Date: 12/09/24 HPI med review HPI Details The patient is a 54-year-old female presenting with insomnia. The patient reports having tried multiple sleep medications in the past, including Zolpidem and Ambien, which did not effectively manage her symptoms. She has been using Lunesta for over a year, which has proven to be the only effective treatment for her insomnia. There have been challenges in continuing with Lunesta therapy due to insurance coverage changes. The patient has been in consistent communication with her insurance provider to resolve these issues, which required confirmation that other sleep aids were ineffective before approving Lunesta. The patient's efforts have included multiple conversations with her insurer over the past three days. [facility] Medical History (Updated 08/24/24 @ 11:54 by April Vizcaino MD) Seizure disorder Ingrown left greater toenail Vitamin D deficiency Asthma Allergies Bronchitis Acute bronchitis Left leg numbness Chronic restrictive lung disease Asthma-COPD overlap syndrome Chronic allergic rhinitis Palpitation SARS-CoV-2 positive Generalized anxiety disorder Allergy to vaccine Low back pain Gallbladder polyp Closed left clavicular fracture History of miscarriage Temporal lobe epilepsy Hypercholesterolemia Fibromyalgia Migraine Bile salt-induced diarrhea Insomnia GERD (gastroesophageal reflux disease) Surgical History History of cholecystectomy Family History Father Cancer Mother CVD (cerebrovascular disease) Sister Breast cancer Family/Other Brain cancer Paternal Uncle Colon cancer Paternal Grandmother Stomach cancer Other Mental health disorder Social History Housing: Apartment Alcohol intake: never Patient Tobacco Use Status: Former Tobacco user Tobacco use type: Cigarette Years Smoked: 1 pack per week stopped 2021 e-Cigarette/Vaping Use: Never Used Second Hand Smoke Exposure: No service: No Current occupational status: unemployed Gender identity: Female Cognitive needs: No Hearing needs: No Vision needs: Yes Questionnaire Thrive Questionnaire Date Thrive assessed: 12/09/24 MONY-7 AMB Questionnaire MONY-7 Date MONY - 7 assessed: 12/09/24 Source: Developed by Drs. Fady Paredes, Arlen Stewart, Abhi Morris and colleagues, with an educational carina from [employer]. Physical exam (Primary Care) Tobacco/Smoking Status: Tobacco use Status Tobacco use date assessed 12/09/24 12/18/24 16:29 Patient Tobacco Use Status Former Tobacco user 12/18/24 16:29 Tobacco use type Cigarette 12/18/24 16:29 e-Cigarette/Vaping Use Never Used 12/18/24 16:29 Thrive Assessment: Date of Thrive Assessment Date Thrive assessed 12/09/24 12/18/24 16:29 Telehealth Telehealth Telehealth Platform: Telephone Location of provider rendering services: practice address Location of patient: address on file Patient Identification confirmed using: Name, : Yes Telehealth method: voice only Patient verbally consented to treatment: Yes Patient verbally consented to billing insurance company: Yes Patient informed of any privacy concerns related to visit: Yes Minutes spent on Phone/Video with Pt.: 15 Coding Level of Care Code Tele Est Pt Level 3 (49430) Diagnoses Insomnia G47.00 Assessment & Plan Assessment & Plan (1) Insomnia: Code(s): G47.00 - Insomnia, unspecified Category: Medical Plan: PAtient has tried zolpidem both long and short acting with no relief and so has been on Lunesta > a year and has been better. will try to do prior authorization. Plan - Consult with the patient's insurance provider to confirm prior treatment failures with other medications to ensure Lunesta is covered. - Continue the patient's current prescription of Lunesta for insomnia management as insurance allows. - Facilitate communication between the patient, medical historian, and insurance provider to streamline the approval process for Lunesta.During the visit, we discussed the challenges with obtaining coverage for Lunesta due to changes in the insurance formulary. I informed the patient that I will communicate with the insurer to verify and confirm her previous trials with other sleeping medications. We discussed the continuation of Lunesta as it has effectively managed her insomnia, and I explained the importance of having accurate documentation for insurance approval. We also discussed the option of contacting the insurance-provided physician contact number for assistance. No risks or alternatives were discussed for new treatments, given the ongoing issue with insurance coverage for Lunesta. I acknowledged her proactive approach in handling the situation and assured her that we will assist in resolving the issue.- Continue taking Lunesta as previously prescribed. - Monitor sleep patterns and report any changes or concerns. - Await further instructions once communication with insurance is concluded. - Contact us if there are further issues or delays with insurance approval.
--- OUTSIDE RECORDS SUMMARY | 2024-12-18 16:29 | XMS_ITS | Encounter Summary ---
Author Organization [facility] Address [address] [place] [address] Care Team Providers Care Construction Trades Teacher Name Role Phone Quinn Herndon MD Primary Care Provider [phone] April Vizcaino MD Primary Care Provider Unavailabl e Encounter Details Date Type Department Care Team Description 01/07/2015 Night Triage Doc Medical Records [address] [place] [address] 08651 Abstract, Provider Social History Tobacco Use Types [...] on filedocumented in this encounter Care Teams Construction Trades Teacher Relationship Specialty Start Date End Date Quinn Herndon MD [address] [place] [address] [phone] PCP - General Internal Medicine 08/25/13 11/26/16 April Vizcaino MD [address] [place] [address] 45912 PCP - General Internal Medicine 11/27/16 documented as of this encounter
--- OUTSIDE RECORDS SUMMARY | 2024-12-18 16:29 | XMS_ITS | Encounter Summary ---
Author Organization [facility] Address [address] [place] [address] Care Team Providers Care Quality Assurance/R&D Lab Technician Name Role Phone Quinn Herndon MD Primary Care Provider [phone] April Vizcaino MD Primary Care Provider Unavailabl e Encounter Details Date Type Department Care Team Description 06/06/2016 Business Doc Medical Records [address] [place] [address] 30262 Abstract, Provider Social History Tobacco Use Types Packs/Day Years Used Date Smoking Tobacco: Former Cigarettes 0.3 Q uit: 09/06/2015 Smokeless Tobacco: Never Comments:Started @ age 18 Alcohol Use Standard Drinks/Week Comments No 0 (1 standard drink = 0.6 oz pur e alcohol) Sex Assigned at Date Recorded Not on file documented as of this encounter Plan of Treatment Not on file documented as of this encounter Visit Diagnoses Not on filedocumented in this encounter Care Teams Quality Assurance/R&D Lab Technician Relationship Specialty Start Date End Date Quinn Herndon MD [address] [place], [place] [phone] PCP - General Internal Medicine 08/25/13 11/26/16 April Vizcaino MD [address] [place] [address] [phone] PCP - General Internal Medicine 11/27/16 documented as of this encounter
--- OUTSIDE RECORDS SUMMARY | 2024-12-18 16:29 | XMS_ITS | Encounter Summary ---
Author Organization [facility] Address [address] [place] [address] Care Team Providers Care Leasing Sales Consultant Name Role Phone Quinn Herndon MD Primary Care Provider [phone] April Vizcaino MD Primary Care Provider Unavailabl e Encounter Details Date Type Department Care Team Description 01/28/2015 Night Triage Doc Medical Records [address] [place] [address] 37400 Abstract, Provider Social History Tobacco Use Types [...] on filedocumented in this encounter Care Teams Leasing Sales Consultant Relationship Specialty Start Date End Date Quinn Herndon MD [address] [place] [address] [phone] PCP - General Internal Medicine 08/25/13 11/26/16 April Vizcaino MD [address] [place] [address] 59533 PCP - General Internal Medicine 11/27/16 documented as of this encounter
--- OUTSIDE RECORDS SUMMARY | 2024-12-18 16:29 | XMS_ITS | Encounter Summary ---
Author Organization [facility] Address [address] [place] [address] Care Team Providers Care Oncology Rep Specialist Name Role Phone Quinn Herndon MD Primary Care Provider [phone] April Vizcaino MD Primary Care Provider Unavailabl e Reason for Visit * Reason Onset Date Comments refill request 09/24/2016 Encounter Details Date Type Department Care Team Description 09/24/2016 Refill Adult Medicine [address] [phone] Quinn Herndon MD [address] [place] [address] 48130 refill request Social History Tobacco Use Types Packs/Day Years Used Date Smoking Tobacco: Former Cigarettes 0.3 Q uit: 09/06/2015 Smokeless Tobacco: Never Comments:Started @ age 18 Alcohol Use Standard Drinks/Week Comments No 0 (1 standard drink = 0.6 oz pur e alcohol) Sex Assigned at Date Recorded Not on file documented as of this encounter Miscellaneous Notes * Telephone Encounter - Ruba Finn - 09/24/2016 10:33 AM EST Patient would like script to be: E-PRESCRIBED/FAXED TO PHARMACY WHEN WAS THE PATIENT'S LAST APPOINTMENT IN ADULT MEDICINE? 05/12/16 WHEN WAS THE LAST TIME THE PATIENT SAW THEIR PCP? 02/07/16 Does patient have an upcoming appointment? No-patient refused appointment, will call back to book appointment (THE MEDICATION REQUESTED IS ON THE MED LIST ABOVE) All of the medications requested were on the CURRENT MEDS list Did you check the Pharmacy information above?: YES Patient wants: 30 -day supply Is this a mail order prescription request ? NO Patients current insurance carrier is: Payor: MEDICARE-[place] / Plan: MEDICARE-[place] / Product Type: MEDICARE [id number] documented in this encounter Plan of Treatment Not on file documented as of this encounter Visit Diagnoses Not on filedocumented in this encounter Care Teams Oncology Rep Specialist Relationship Specialty Start Date End Date Quinn Herndon MD [address] [place] [address] 67373 PCP - General Internal Medicine 08/25/13 11/26/16 April Vizcaino MD [address] [place] [address] 26535 PCP - General Internal Medicine 11/27/16 documented as of this encounter
--- OUTSIDE RECORDS SUMMARY | 2024-12-18 16:29 | XMS_ITS | Encounter Summary ---
Author Organization [facility] Address [address] [place] [address] Care Team Providers Care It Teacher Name Role Phone Quinn Herndon MD Primary Care Provider [phone] April Vizcaino MD Primary Care Provider Unavailabl e Encounter Details Date Type Department Care Team Description 05/26/2016 Night Triage Doc Medical Records [address] [place] [address] 09453 Abstract, Provider Social History Tobacco Use Types [...] on filedocumented in this encounter Care Teams It Teacher Relationship Specialty Start Date End Date Quinn Herndon MD [address] [place] [address] [phone] PCP - General Internal Medicine 08/25/13 11/26/16 April Vizcaino MD [address] [place] [address] 64587 PCP - General Internal Medicine 11/27/16 documented as of this encounter
--- OUTSIDE RECORDS SUMMARY | 2024-12-18 16:29 | XMS_ITS | Encounter Summary ---
Author Organization [facility] Address [address] [place] [address] Care Team Providers Care Grinding Machine Tender Name Role Phone Quinn Herndon MD Primary Care Provider [phone] April Vizcaino MD Primary Care Provider Unavailabl e Encounter Details Date Type Department Care Team Description 11/01/2016 Orders Only General Surgery [address] [place] [address] [phone] Otf Chatterjee MD [address] [place] [address] [phone] Social History Tobacco Use Types Packs/Day Years [...] on filedocumented in this encounter Care Teams Grinding Machine Tender Relationship Specialty Start Date End Date Quinn Herndon MD [address] [place] [address] [phone] PCP - General Internal Medicine 08/25/13 11/26/16 April Vizcaino MD [address] [place] [address] 32241 PCP - General Internal Medicine 11/27/16 documented as of this encounter
== END 2024-12-18 17:28 | disposition home or self-care (01) ==
LOC: HO.HMCH 16:27
PROVIDERS: PCP Internal Medicine; Visit Provider Internal Medicine
DX: G47.00 Insomnia, unspecified (principal)

== ENCOUNTER → 2024-12-18 16:27 | Outpatient (BNVA) | payer OTHER, SELFPAY | PROVIDERS: PCP Internal Medicine; Visit Provider Internal Medicine ==

== ENCOUNTER → 2025-01-21 10:00 | Outpatient (BNV) | payer OTHER, SELFPAY | PROVIDERS: Visit Provider Psychiatry & Neurology Psychiatry | DX: F33.2 Major depressive disorder, recurrent severe without psychotic features (principal) | CPT/HCPCS: 90868 ==

== ENCOUNTER 2025-03-01 08:00 | Outpatient (REF) | payer OTHER, SELFPAY ==
--- OUTSIDE RECORDS SUMMARY | 2025-03-01 08:05 | XMS_ITS | Data Portability ---
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 I have reviewed and agree with the Assessment and Plan as documented by the Recruiter Specialist. Patient given the opportunity to ask questions. Our service contacted for an assessment of: Nasal congestion As per above, patient states she has a sinus infection. States that she has pressure in the sinuses on both sides. Also complaining of a mild headache. Initially stated she was not taking anything nvob-llf-skagyif but then stated she was taking Robitussin twice a day and Mucinex every 4 hours without relief. Denies use a nasal decongestant specifically. Has history of asthma and has been seen by this service as well as being followed by Pulmonary. Using her steroid inhaler twice a day. Review of records reveals 7 antibiotic prescriptions over the course of the past year. Per supervisor cutting and boning on the scene, vital signs are stable patient is afebrile. Nontoxic on exam with no increased work of breathing. Appears comfortable. Pain on palpation of sinus area bilaterally. No wheezing heard but decreased air movement but no increased work of breathing. Impression: Mild asthma exacerbation and nasal congestion Plan: Encourage patient to follow up with PCP regarding images of the sinuses and to design a specific plan for nasal congestion. It is unclear whether this represents a true sinus infection and there is concern for antibiotic overuse. Additionally patient is not using albuterol intermittently during the day. Instructed on the importance using albuterol intermittently as she needs to control asthma symptoms. Encouraged follow-up with PCP and with turntable worker. Ativan abundance of caution prescribed doxycycline for a 5 day course. Allergies: Reviewed PCP f/u: We discussed the diagnostic uncertainty of home visits and the risk associated with this. In this case, the patient and I felt this to be an acceptable and reasonable amount of risk given the benefit of avoiding an ED visit. We discussed the need to seek care urgently/emergentl y in the setting of any new or worsening serious symptoms, particularly fever chills lightheadedness altered mental status [email or web address] Not available 12/18/2024 19:36:44 01/24/2025 01/24/2025 I provided real -time medical direction via phone for this encounter and was available for additional phone-based assistance as needed. I have reviewed and agree with the Assessment and Plan as documented by the Recruiter Specialist. Patient given the opportunity to ask questions. Our service contacted for an assessment of: Nasal congestion As per above, patient states she has a sinus infection. States that she has pressure in the sinuses on both sides. Also complaining of a mild headache. Initially stated she was not taking anything oraj-zps-yijgbbt but then stated she was taking Robitussin twice a day and Mucinex every 4 hours without relief. Denies use a nasal decongestant specifically. Has history of asthma and has been seen by this service as well as being followed by Pulmonary. Using her steroid inhaler twice a day. Review of records reveals 7 antibiotic prescriptions over the course of the past year. Per supervisor cutting and boning on the scene, vital signs are stable patient is afebrile. Nontoxic on exam with no increased work of breathing. Appears comfortable. Pain on palpation of sinus area bilaterally. No wheezing heard but decreased air movement but no increased work of breathing. Impression: Mild asthma exacerbation and nasal congestion Plan: Encourage patient to follow up with PCP regarding images of the sinuses and to design a specific plan for nasal congestion. It is unclear whether this represents a true sinus infection and there is concern for antibiotic overuse. Additionally patient is not using albuterol intermittently during the day. Instructed on the importance using albuterol intermittently as she needs to control asthma symptoms. Encouraged follow-up with PCP and with turntable worker. Ativan abundance of caution prescribed doxycycline for a 5 day course. Allergies: Reviewed PCP f/u: We discussed the diagnostic uncertainty of home visits and the risk associated with this. In this case, the patient and I felt this to be an acceptable and reasonable amount of risk given the benefit of avoiding an ED visit. We discussed the need to seek care urgently/emergentl y in the setting of any new or worsening serious symptoms, particularly fever chills lightheadedness altered mental status [email or web address] [id number] Not available 01/24/2025 14:37:31 Plan of Treatment Reminders Order Date Submit Date Provider Last Modified By Organization Details Last Modified Time Details Appointments None recorded. Lab None recorded. Referral None recorded. Procedures None recorded. Surgeries None recorded. Imaging None recorded. Medication Orders doxycycline hyclate 100 mg capsule [address] [facility] [address] [id number] [address] [place], [place], [id number], 14:37:32 doxycycline hyclate 100 mg capsule 2024 025 [id number], [address], [place], [id number], 14:37:25 doxycycline hyclate 100 mg capsule 2024 025 [address] [facility], [address] [place], [place], [id number], 5 19:38:12 doxycycline hyclate 100 mg capsule [email or web address] [facility] #[id number], [address] [place], [place], [id number], 5 19:38:20 prednisone 20 mg tablet 2023 024 [facility] #50226, [address] [place], [place], [id number], 4 22:14:25 levofloxaci n 750 mg tablet 2023 024 [facility] #[id number], [facility] [place], [place], [id number], 4 22:14:25 levofloxaci n 750 mg tablet 2023 024 [facility] #89485, [address], [place], [id number], 4 22:17:04 prednisone 10 mg tablet 2023 024 [facility] #87158, [address], [place], [id number], 4 22:17:04 fluconazole 150 mg tablet 2023 024 [facility] #[id number], [address], [place], [id number], 4 22:19:10 Patient TargetsNo targets recorded. Patient InstructionsNo instructions recorded. Reason for Referral None Reported. Medical Equipment None Reported. Allergies Allergen ID Allergen Name Allergen Category Reaction Reaction Severity Criticality Documentation Date Start Date Code Code System Note Provider Name and Address Organization Details Recorded Time 12702 oxycodone medicatio n Not available Not available Not available 10/12/2024 8474 RxNorm Not Available [facility] - production 4 20:09:51 03777 Sudafed medicatio n Not available Not available Not available 10/12/202437636 2 RxNorm Not Available [facility] - production 4 20:09:51 51555 acetamino phen / dextromet horphan / doxylamin e / pseudoeph edrine medicatio n Not available Not available Not available 01/24/2025 52819 4 RxNorm Not Available [facility] 5 12:16:23 Medications Name Sig Start Date Stop Date [...] Available Not Available No t Available doxycycline hyclate 100 mg capsule TAKE 1 CAPSULE BY MOUTH TWICE DAILY FOR 5 DAYS active Not Available Not Available No [...] tablet TAKE 1 TABLET BY MOUTH DAILY NEEDED FOR ALLERGIES active Not Available Not Available No t [...] BY MOUTH TWICE DAILY FOR 14 DAYS active Not Available Not Available No t Available amoxicillin 500 mg tablet 10/12 completed Not Available Not Available Not Available Cholestyram ine Light 4 gram powder for suspension in a packet DISSOLVE 1 PACKET IN [...] BY MOUTH TWICE DAILY FOR 7 DAYS active Not Available Not Available No t Available oseltamivir 75 mg capsule TAKE 1 [...] mcg/actuati on aerosol inhaler INHALE 1 PUFF FOUR TIMES DAILY NEEDED FOR SHORTNESS OF [...] Not Available Not Available No t Available azelastine 137 mcg-flutica sone 50 mcg/spray nasal spray SHAKE LIQUID AND USE 1 SPRAY IN EACH NOSTRIL TWICE DAILY active Not Available Not Available [...] and Address Organization Details Last Updated DateTime 4 99.4 [degF] 16 /min 92 /min 95 % 95 % 122 mm[Hg] 84 mm[Hg] Not Available [facility] production 4 21:00:39 Date Recorded Heart rate Respiratory rate Body weight Body height Body temperature Oxygen saturation Oxygen saturation in Arterial blood by Pulse oximetry Systolic blood pressure Diastolic blood pressure Provider Name and Address Organization Details Last Updated DateTime 5 80 /min 20 /min 03682.8 8 g 162.56 cm 98.1 [degF] 96 % 96 % 152 mm[Hg] 73 mm[Hg] Not Available [facility] production 5 17:21:21 Date Recorded Respiratory rate Heart rate Oxygen saturation Oxygen saturation in Arterial blood by Pulse oximetry Body temperature Systolic blood pressure Diastolic blood pressure Provider Name and Address Organization Details Last Updated DateTime 5 16 /min 90 /min 96 % 96 % 98.2 [degF] 123 mm[Hg] 82 mm[Hg] Not Available [facility] - [facility] 5 14:28:23 Social History None recorded. Functional Status None recorded. Mental Status None recorded. Family History Nothing Reported. Medical History No medical history recorded. Gynecological HistoryNo gynecological history recorded. Obstetrics History GPAL:G 0 P 0 0 0 0 Past Encounters Encounter ID Performer Location Encounter Start Date Encounter Closed Date Diagnosis/Indication Diagnosis SNOMED-CT Code Diagnosis ICD10 Code Diagnosis Note [id number] Sonia Good MD [facility] [address] [place] [phone] 10/12/2024 21:00:35 10/12/2024 23:38:11 Acute exacerbation of chronic obstructive pulmonary disease 396648037 J44.1 Candidiasis of vagina 72 965433 B37.31 [id number] Brittany Lopez MD [facility] [address] [place] [id number] 12/18/2024 17:21:19 12/22/2024 16:07:56 Exacerbation of intermittent asthma 677644642 J45.21 Congestion of nasal sinus 72527148 R09.81 [id number] Brittany Lopez [place] [address] 01/24/2025 14:28:21 01/24/2025 19:29:04 Exacerbation of intermittent asthma 091807814 J45.21 Health Concerns Section Related Observation LastModified by Organization Detai ls LastModified Time None Recorded Concern Status LastModified by Organization Details LastModified Time None Recorded Advance Directives Directive None Recorded Payers Encounter Date Sequence Insurance Name Policy Number Policy Benitez Covered Member ID Benitez Member ID Guarantor Name 10/12/[address] [facility] - DOS ON OR AFTER 2023 - DUAL ELIGIBLE - CARE HOME OPTIONS AND ONE CARE (MEDICARE REPLACEMENT/ADV ANTAGE - HMO) Zoila Giron [id number] Zoila Mack 12/18/[address] [facility] - DOS ON OR AFTER 2023 - DUAL ELIGIBLE - CARE HOME OPTIONS AND ONE CARE (MEDICARE REPLACEMENT/ADV ANTAGE - HMO) Zoila Mack [id number] Zoila Mack 01/24/[address] [facility] - DOS ON OR AFTER 2023 - DUAL ELIGIBLE - CARE HOME OPTIONS AND ONE CARE (MEDICARE REPLACEMENT/ADV ANTAGE - HMO) Zoila Mack [id number] Zoila Mack Notes Date Note Type Note Provider Name and Address Organization Details Recorded Time 10/12/2024 text/html HPI: Member with HX of COPD. Calling in with upper respiratory symptoms. Cough and congestion with thick yellow sputum. Wheezing and using rescue inhaler. Now is having some earache pain, and fatigue. Symptoms started about a week ago. Denies fevers. Member requesting evaluation. ....................... ....................... ....................... ....................... ....................... ....................... ... [facility] Nurse Triage Notes (Yany Patton): Reason For Request: URI symptoms, Cough Chief Complaints: Earache, Fatigue, Cough, COPD PMH: Chronic Obstructive Pulmonary Disease (COPD) Comments: Reviewed HPI- no further info needed. John MARSHALL ....................... ....................... ....................... ....................... ....................... ....................... ... Recruiter Specialist Note From Angel Shabazz: This 54-year-old female [...] Patient is under the care of a turntable worker is scheduled to see him in two weeks. Patient also uses cetirizine, Flonase, Breo, and albuterol nebulizer treatments. Patient states the symptoms are consistent with previous flareups.Patient presents awake and alert, in no acute distress. Her vital signs are reasonably stable and she is afebrile. Nonfocal neurological exam. Normal gait. Mild diffuse expiratory wheezing. Abdomen is soft, nontender, nondistended. No lower extremity edema.[facility] spoke directly to patient and provided significant education. This patient was treated with levofloxacin 750 mg PO and prednisone 40 mg. Patient was instructed to follow up with her turntable worker tomorrow and to present to the ED for any new or worsening symptoms, which I reviewed with her. The patient was given the opportunity to ask questions to the [facility] and myself and is agreeable to this plan. ....................... ....................... ....................... ....................... ....................... ....................... ... [facility] Consulted: Sonia Good ....................... ....................... ....................... ....................... ....................... ....................... ... Disposition: Fulfilled Sonia Good MD [address] [place] [address],[address], [place], [phone], [facility] 10/12/2024 22:19:58 12/18/2024 text/html HPI: mbr with complaints of cough congestion producing yellow phlegm x1wk, states feeling weak/lightheaded/RAMÍREZ and increased SOB with exertion, denies any CP/N/V fevers or chills, speaking in full sentences. requesting [facility] for evaluationProtocol Used: Cough - Acute ProductiveProtocol-Base d Disposition: Consider [facility] Community clinician, MD/ACCOUNTS RECEIVABLE ASSISTANT triage, PCP, or Urgent Care Visit within 4 HoursPositive Triage Questions:* [1] MILD difficulty breathing (e.g., minimal/no SOB at rest, SOB with walking, pulse < 100) AND [2] still present when not coughing* [1] Known COPD or other severe lung disease (i.e., bronchiectasis, cystic fibrosis, lung surgery) AND [2] symptoms getting worse (i.e., increased sputum purulence or amount, increased breathing difficultyNegative Triage Questions:* SEVERE difficulty breathing (e.g., struggling for each breath, speaks in single words)* Bluish (or craig) lips or face now* [1] MODERATE difficulty breathing (e.g., speaks in phrases, SOB even at rest, pulse 100-120) AND [2] still present when not coughing* [1] Coughed up blood AND [2] > 1 tablespoon (15 ml) (Exception: Blood-tinged sputum.)* Wheezing is present ....................... ....................... ....................... ....................... ....................... ....................... ... [facility] Nurse Triage Notes (Iggy Tobar - RN): Chief Complaints: Asthma, Common cold symptoms, Cough, Dizziness, Fatigue, Headache, Weakness PMH: Chronic Obstructive Pulmonary Disease (COPD), Asthma PMH Reviewed at 12/18/2024 16:18 Allergies Reviewed at 12/18/2024 - 16:18 Comments: Reviewed HPI Recruiter Specialist Organization Information for Britton Lopes Business Legal Name: [employer]? Address: [address] [place] [address], Line Prep Cook: Jeremy Sweeney MD CLIA No.: [id number] Recruiter Specialist POC Test Results from [facility] Rapid COVID antigen (17:24:13) COVID: - Rapid influenza antigen (17:24:14) Flu: - ....................... ....................... ....................... ....................... ....................... ....................... ... Recruiter Specialist Note From Britton Lopes: [facility] makes pt contact. She opens the front door and invites [facility] in. She is generally well-appearing. Her voice has a nasal quality to it and she has a raspy, dry cough. No stridor or sonorous respirations are noted, no facial droop, slurred speech, or one-sided weakness are observed, and she is not bleeding anywhere. Pt answers all questions appropriately, using a linear and logical thought pattern. Pt endorses head and sinus pressure and ear congestion w/ post nasal drip and sore throat for the past week. She also endorses dry cough. She denies cp, sob, n/v/d, urinary symptoms, fevers/chills. Pt described nose drainage and sputum as yellow in color. She says nothing has been helping her feel better. She has tried Mucinex and Robitussin and takes zyrtek once daily, but nothing has seemed to help. She did up her steroid inhaler to BID and reported this change to her turntable worker. She is also giving herself her home neb treatments about three times per day. She consents to treatment and evaluation today. [facility] obtains pt consent and uploads. Vital signs are obtained and pt is swabbed for COVID/flu and physically assessed. Lung sounds are clear and equal, but diminished bilateral. She is tender to tapping over the sinuses and throat is red, but glands are not swollen. Remaining physical exam is unremarkable. [facility] contacts [facility] and discusses the above. [facility] orders [facility] administer 1 tablet (100mg) doxycycline and calls in a prescription to pt's pharmacy. Pt thanks [facility] for coming. [facility] is clear. Report complete by REJI Lopes [id number]. ....................... ....................... ....................... ....................... ....................... ....................... ... [facility] Consulted: Brittany Lopez ....................... ....................... ....................... ....................... ....................... ....................... ... Disposition: Fulfilled Brittany Lopez MD [address] [place] [address],[address], [place], [phone], [employer] 12/18/2024 19:38:36 01/24/2025 text/html HPI: c/o sore throat, pressure around eyes- typical of previous sinus infections, right ear pressure, and headache x 1 week. No fever, +chills, nonproductive cough. Taking Tylenol and ibuprofen for sore throat without improvement. Daughter with same symptoms last week, dx with sinus infection and put on antibiotics. Member thinks she may also need antibiotic also, requesting a home visit. ....................... ....................... ....................... ....................... ....................... ....................... ... [facility] Nurse Triage Notes (Iggy Tobar): Chief Complaints: Sore Throat PMH: Chronic Obstructive Pulmonary Disease (COPD), Asthma PMH Reviewed at 01/24/2025 12:16 Allergies Reviewed at 01/24/2025 - 12:16 Comments: Reviewed HPI Recruiter Specialist Organization Information for Angel Shabazz Business Legal Name: [facility] Address: [address] [place] [address], [place] [address], Line Prep Cook: David Saul MD IA No.: [id number] Recruiter Specialist POC Test Results from [facility] [employer] Rapid COVID antigen (14:32:17) COVID: - Rapid influenza antigen (14:32:17) Flu: - ....................... ....................... ....................... ....................... ....................... ....................... ... Recruiter Specialist Note From Angel Shabazz: This 54-year-old female with a history of asthma requested a visit today to address seven to 10 days of sinus congestion, rhinorrhea and cough producing yellow sputum. Patient states her symptoms feel consistent with previous sinus infections. Patient uses Breztri MDI daily, albuterol MDI PRN and cetirizine. Patient denies any chest pain, severe shortness of breath, fevers, nausea, vomiting, diarrhea. Patient states daughter is ill with similar symptoms. Patient presents awake and alert, in no acute distress and speaking full sentences. Her vital signs are reasonably stable and she is afebrile. Nonfocal neurological exam. Sinus tenderness on the right side of her face and into the temporomandibular joint. Normal oropharynx exam. Lungs are clear throughout auscultation. Abdomen is soft, nontender, nondistended. No lower extremity edema. Rapid COVID and flu testing are both negative. I treated this patient with doxycycline 100 mg. We discussed the diagnostic uncertainty of home visits and the risk associated with this. In this case, the patient and I felt this to be an acceptable and reasonable amount of risk given the benefit of avoiding an ED visit. I provided education on the patient's prescription as well as additional OTC/supportive care therapy. I recommend she follows up with her turntable worker this week and present to the emergency department for any new or worsening severe symptoms such as chest pain, severe shortness of breath, high fever, altered mental status. The patient was given the opportunity to ask questions and is agreeable to this plan. [facility] Medication Orders: doxycycline hyclate 100 mg capsule: Administered ....................... ....................... ....................... ....................... ....................... ....................... ... [facility] Consulted: Brittany Lopez ....................... ....................... ....................... ....................... ....................... ....................... ... Disposition: Sandra Lopez MD [address] [facility],[address], [place], [phone], [employer] 01/24/2025 15:01:56 OBGyn Episode No OBEpisode recorded.
--- OUTSIDE RECORDS SUMMARY | 2025-03-01 08:06 | XMS_ITS | Clinical Summary ---
Author Organization [facility] Address [address] [place] [address] Care Team Providers Care Customer Success Intern Name Role Phone April Vizcaino MD Primary Care Provider [phone] Social History Tobacco Use Types Packs/Day Years Used Date Smoking Tobacco: Never Assessed Comments Unknown Sex and Gender Information Value Date Recorded Sex Assigned at Not on file Legal Sex Female 11:19 PM EST Gender Identity Not on file Sexual Orientation Not on file Plan of Treatment Health Maintenance Due Date Last Done Comments Hepatitis B Vaccines (1 of 3 - 19+ 3-dose series) 1991 Breast Cancer Screening 05/20/2020 05/20/2018 Cervical Cancer Screening: P ap Smear 06/12/2021 06/12/2018 Pneumococcal Vaccine: 50+ Ye ars (1 of 1 - PCV) 2022 Zoster Vaccines (1 of 2) 2022 Colorectal Cancer Screening: Colonoscopy 10/30/2022 Depression Screening 10/30/2022 HIV Screening 10/30/2022 Hepatitis C Screening 10/30/2022 Social Influencers of Health Screening 10/30/2022 COVID-19 Vaccine (1 - 2023-2 5 season) 2024 DTaP,Tdap,and Td Vaccines (2 - Td or Tdap) 09/17/2024 09/17/2014 Influenza Vaccine (Season Ended) 2025 09/17/20 14 HIB Vaccines Aged Out No longer eligi [...] patient's age to complete this topic Meningococcal B Vaccine Aged Out No l onger eligible based on patient's age to complete [...] RESULTING AGENCY - 06/18/2018 9:05 AM EDT [id number] THINPREP PAP, IMAGED: ATYPICAL SQUAMOUS CELLS OF [...] ANY DIAGNOSIS. Z12.4, Z01.419, PAP HX: NEGATIVE us Adina Hickey MD LAB CYTOLOGY ORDERABLES Final Result HISTORICAL TESTING LAB RESULTING AGENCY * SCR [...] (>20%) April Vizcaino MD IMG XR PROCEDURES Final Result from Last 3 Months or Most Recently Relevant to Health Maintenance Care Teams Customer Success Intern Relationship Specialty Start Date End Date April Vizcaino MD [address] [place] [address] [address] [facility] [place] [address] PCP - General Internal Medicine 11/27/16
--- OUTSIDE RECORDS SUMMARY | 2025-03-01 08:06 | XMS_ITS | Patient Health Record ---
Author Organization [facility] Address [address] [place] [address] Care Team Providers Care Quality Systems Technician Name Role Phone Po April SHEEHAN Primary Care Provider Clemente Hope Jr Unavailable Allergies Allergen (clinical drug ingredient) Drug/Non Drug Allergy documented on EMR Reaction Allergy Type Onset Date Status Sudafed Unknown Drug Allergy Active penicillamine Penicillamine Unknown Drug Allergy Active Reason For Referral No Information Medications Medication SIG (Take, Route, Fr equency, Duration) [...] a day for 30 day(s) 08/14/2013 Active Problems Problem Type SNOMED Code ICD Code Onset Dates Problem Status W/U Status Risk Notes Problem Nausea (643076994) Nausea (787.02) Active confirmed Problem Epigastric pain (32773339) Epigastric pain (789.06) Active confirmed Plan Of Treatment Future Test Test Name Order Date UPPER GI ENDOSCOPY 07/17/2013 Insurance Providers Payer Name Payer Address Payer Phone Subscriber Number Group Number Insured Name Patient Relationship to Insured Coverage Start Date Coverage End Date MEDICARE OF [place] [address] [place] [address] [id number] JESICA CLAUDIA Self - patient is the insured MEDICAID OF [facility] [address] [place] [address] [id number] JESICACLAUDIA LOPEZ Self - patient is the insured Medical (General) History Medical History History ICD Code egd abd pain epigastric pain benign heart murmur-for which no antibio tic prophylaxis are taken. anxiety attacks allergies
[2025-03-01 08:12] LABS: MANUAL DIFF FLAG NO
[2025-03-01 08:52] LABS: Basophils Absolute Auto 0.1 X10*3/uL (0.0-0.2); Basophils Percent Auto 0.8 % (0-2); Eosinophils Absolute Auto 0.2 X10*3/uL (0.0-0.4); Eosinophils Percent Auto 1.4 % (0-4); Hematocrit 48.4 % (37.0-47.0); Hemoglobin 15.9 g/dl (12.0-16.0); Imm Gran Abs Auto 0.08 X10*3/uL (0.00-0.03); Imm Gran Pct Auto 0.6 % (0.0-0.4); Lymphocytes Absolute Auto 2.8 X10*3/uL (1.2-4.9); Lymphocytes Percent Auto 22.2 % (20-40); Mean Corpuscular HGB Conc 32.9 g/dl (31.0-35.0); Mean Corpuscular Hemoglobin 30.6 pg (27.0-33.0); Mean Corpuscular Volume 93.3 fL (80.0-98.0); Mean Platelet Volume 9.8 fL (9.4-12.3); Monocytes Absolute Auto 1.2 X10*3/uL (0.1-1.2); Monocytes Percent Auto 9.7 % (2-11); Neutrophils Absolute Auto 8.2 x10*3/uL (2.0-8.3); Neutrophils Percent Auto 65.3 % (45-73); Platelet Count 339 X10*3/uL (160-400); Red Blood Count 5.19 X10*6/uL (4.20-5.50); Red Cell Distribution Width 13.5 % (11.0-16.0); White Blood Count 12.6 X10*3/uL (4.8-10.8)
[2025-03-01 08:59] LABS: Appearance Urine Clear; Color Urine Yellow; Glucose Urine UA Negative (Negative); Leukocyte Esterase Urine Negative (Negative); Nitrite Urine Negative (Negative); Specific Gravity - Urine <= 1.005 (1.005-1.025); Urine Blood Negative (Negative); Urine Ketones Negative (Negative); Urine Protein Negative (Neg-Trace)
[2025-03-01 09:02] LABS: Estimated Average Glucose 114 mg/dL; Hemoglobin A1C 155.1356 umol/L; Hemoglobin A1c % 5.6 % (<6.0); Total Hemoglobin (HGBA1C) 4135.0725 umol/L
[2025-03-01 09:28] LABS: Alanine Aminotransferase 18 U/L (0-31); Albumin Level 4.3 g/dL (3.5-5.0); Alkaline Phosphatase 85 U/L (39-117); Anion Gap 10 (12-20); Aspartate Amino Transferase 21 U/L (5-31); Bilirubin Total 0.2 mg/dL (0.0-1.0); Blood Urea Nitrogen 14 mg/dL (9-16); Calcium 9.7 mg/dL (8.4-10.2); Carbon Dioxide 22 mmol/L (22-29); Chloride 110 mmol/L (96-108); Cholesterol 198 mg/dL (<200); Estimated Glomerular Filt Rate > 60; Glucose Random 135 mg/dL (60-115); HDL Cholesterol 50 mg/dL (>40); LDL Cholesterol Calculated 126 mg/dL (<100); Potassium 4.3 mmol/L (3.3-5.1); Sodium 138 mmol/L (135-145); Triglycerides 114 mg/dL (<150)
[2025-03-01 09:44] LABS: Free T4 (Free Thyroxine) 1.08 ng/dL (0.71-1.85); Thyroid Stimulating Hormone 1.47 uIU/mL (0.32-4.0); Vitamin D 25-OH Total 62.1 ng/mL (>30)
[2025-03-01 09:53] LABS: Folate 17.5 ng/mL (> or = 4.0); Vitamin B12 1047 pg/mL (200-900)
== END 2025-03-01 08:01 | disposition home or self-care (01) ==
LOC: HO.LAB 08:00
PROVIDERS: PCP Internal Medicine; Visit Provider Internal Medicine
DX: I70.0 Atherosclerosis of aorta (principal); E78.00 Pure hypercholesterolemia, unspecified; R30.0 Dysuria; Z13.1 Encounter for screening for diabetes mellitus
CPT/HCPCS: 36415; 80053; 80061; 81003; 82306; 82607; 82746; 83036; 84439; 84443; 85025

== ENCOUNTER 2025-03-09 09:14 | Outpatient (AMB) | payer OTHER, SELFPAY ==
--- NOTE | 2025-03-09 09:17 | MHC.PC.OV ---
Vital Signs 03/09/25 09:18 Height 5 ft 4 in Weight 167 lb 6 oz BMI 28.7 BP 110/66 Blood Pressure Location Lt brachial Position Sitting Pulse 86 Pulse Source Pulse Oximeter Temp 97.1 F Temp Source Temporal Artery Scan Pulse Oximetry (%) 95 Oxygen Delivery Method Room Air Intake Visit Reasons: Asthma Intake Note: Patient is here to follow up on Asthma. Assistant Hvac Mechanic Required: No Fire Information Officer: Not Required per policy Accompanied by: Self / Same As Patient Allergies Clindamycin HCl Allergy (Unknown, Verified 03/09/25 09:17) esophagus, trouble swallowing gabapentin Allergy (Unknown, Verified 03/09/25 09:17) Unknown ibuprofen Allergy (Unknown, Verified 03/09/25 09:17) nausea metoclopramide [Reglan] Allergy (Unknown, Verified 03/09/25 09:17) jittery NSAIDS (Non-Steroidal Anti-Inflamma [NSAIDS (NON-STEROIDAL ANTI-INFLAMMA] Allergy (Unknown, Verified 03/09/25 09:17) STOMACH UPSET oxycodone [OXYCODONE] Allergy (Unknown, Verified 03/09/25 09:17) palpitations, hyper pseudoephedrine [Sudafed] Allergy (Unknown, Verified 03/09/25 09:17) Unknown tramadol [TRAMADOL] Allergy (Unknown, Verified 03/09/25 09:17) palpitations, hyper vilazodone [Viibryd] Allergy (Unknown, Verified 03/09/25 09:17) dry mouth and tremors zolpidem [Ambien] Allergy (Unknown, Verified 03/09/25 09:17) Unknown bupropion [BUPROPION] Adverse Reaction (Intermediate, Verified 03/09/25 09:17) HTN, BLURRY VISION quetiapine [From Seroquel] Adverse Reaction (Intermediate, Verified 03/09/25 09:17) patient states levofloxacin Adverse Reaction (Unknown, Verified 03/09/25 09:17) weakness, nausea/vomiting Tobacco use date assessed: 03/09/25 Dental Screening Dental Screen Date: 12/09/24 HPI Asthma HPI Details complains of sore throat and nasal congestion, states has tried 2 .5 weeks pain on ear has dymista and zyrttec [facility] Medical History (Updated 03/09/25 @ 09:43 by April Vizcaino MD) Major depressive disorder, recurrent severe without psychotic features Seizure disorder Ingrown left greater toenail Vitamin D deficiency Asthma Allergies Bronchitis Acute bronchitis Left leg numbness Chronic restrictive lung disease Asthma-COPD overlap syndrome Chronic allergic rhinitis Palpitation SARS-CoV-2 positive Generalized anxiety disorder Allergy to vaccine Low back pain Gallbladder polyp Closed left clavicular fracture History of miscarriage Temporal lobe epilepsy Hypercholesterolemia Fibromyalgia Migraine Bile salt-induced diarrhea Insomnia GERD (gastroesophageal reflux disease) Surgical History History of cholecystectomy Family History Father Cancer Mother CVD (cerebrovascular disease) Sister Breast cancer Family/Other Brain cancer Paternal Uncle Colon cancer Paternal Grandmother Stomach cancer Other Mental health disorder Social History Housing: Apartment Alcohol intake: never Patient Tobacco Use Status: Former Tobacco user Tobacco use type: Cigarette Years Smoked: 1 pack per week stopped 2021 e-Cigarette/Vaping Use: Never Used Second Hand Smoke Exposure: Yes service: No Current occupational status: unemployed Gender identity: Female Cognitive needs: No Hearing needs: No Vision needs: Yes Questionnaire Thrive Questionnaire Date Thrive assessed: 12/09/24 MONY-7 AMB Questionnaire MONY-7 Date MONY - 7 assessed: 12/09/24 Source: Developed by Drs. Fady Paredes, Arlen Stewart, Abhi Morris and colleagues, with an educational carina from [employer]. Physical exam (Primary Care) Vital Signs: Last Vital Signs Temp 97.1 F 03/09/25 09:18 Pulse 86 03/09/25 09:18 BP 110/66 03/09/25 09:18 Pulse Ox 95 03/09/25 09:18 Oxygen Delivery Method Room Air 03/09/25 09:18 BMI result Body Mass Index 28.7 Tobacco/Smoking Status: Tobacco use Status Tobacco use date assessed 03/09/25 03/09/25 09:23 Patient Tobacco Use Status Former Tobacco user 03/09/25 09:23 Tobacco use type Cigarette 03/09/25 09:23 e-Cigarette/Vaping Use Never Used 03/09/25 09:23 Thrive Assessment: Date of Thrive Assessment Date Thrive assessed 12/09/24 03/09/25 09:23 Const General: alert; No acute distress Eyes Conjunctivae: conjunctivae normal Resp Auscultation: clear to auscultation bilaterally Cardio Rate: regular rate Rhythm: regular rhythm GI Inspection: Yes normal to inspection Extrem General: Yes normal to inspection and No edema Coding Level of Care Code Est Pt Level 4 (13412) Complex EM visit Add On G2211 Diagnoses Asthma-COPD overlap syndrome J44.89 Atherosclerosis of abdominal aorta I70.0 Overweight (BMI 25.0-29.9) E66.3 Hypercholesterolemia E78.00 Gastroesophageal reflux disease without esophagitis K21.9 Esophagitis presence: without esophagitis Major depressive disorder, recurrent severe without psychotic features F33.2 Elevated blood sugar level R73.9 Sinus congestion R09.81 Assessment & Plan Assessment & Plan (1) Asthma-COPD overlap syndrome: Code(s): J44.89 - Other specified chronic obstructive pulmonary disease Category: Medical Plan: Is being followed up by Pulmonary on Xolair Ventolin inhaler Breztri (2) Atherosclerosis of abdominal aorta: Code(s): I70.0 - Atherosclerosis of aorta Category: Medical Plan: Control the cholesterol, weight, blood pressure, discussed about getting LDL below 70 (3) Overweight (BMI 25.0-29.9): Code(s): E66.3 - Overweight Category: Medical Plan: Diet and exercise (4) Hypercholesterolemia: Code(s): E78.00 - Pure hypercholesterolemia, unspecified Category: Medical Plan: Avoid fried foods, chicken skin, eggs, butter margarine, pastries and meat. Be it pork or beef they have a lot of cholesterol LDL close to 70 (5) GERD (gastroesophageal reflux disease): Code(s): K21.9 - Gastro-esophageal reflux disease without esophagitis Category: Medical Qualifiers: Esophagitis presence: without esophagitis Qualified Code(s): K21.9 - Gastro-esophageal reflux disease without esophagitis Plan: Avoid the foods that causes that usually spicy foods, tomato products, juices, coffee, soda and foods that your sensitive to. After eating do not lie down, allow 3-4 hours before in lie down. And keep the head of bed above 30 degrees to avoid the acid from going up. (6) Major depressive disorder, recurrent severe without psychotic features: Code(s): F33.2 - Major depressive disorder, recurrent severe without psychotic features Category: Medical Plan: Continue to follow-up with psychiatry and having TM S (7) Elevated blood sugar level: Code(s): R73.9 - Hyperglycemia, unspecified Category: Medical (8) Sinus congestion: Code(s): R09.81 - Nasal congestion Category: Medical Plan History of Present Illness The patient is a 54-year-old female presenting with recurrent sinus issues. She reports nasal dripping and sore throat, which she associates with her allergies, for the past two and a half weeks. The patient admits to borrowing the Demista nasal spray and taking Zyrtec as allergy medications. She also mentions using a Ventolin inhaler as needed due to asthma exacerbation when her sinus symptoms flare. The asthma symptoms have improved with fewer needs for antibiotics recently. The patient has a significant medical history including GERD, migraine, fibromyalgia, hypercholesterolemia, and atherosclerosis of the abdominal aorta. She quit smoking in January 2022. She follows up with psychiatry for recurrent major depression and generalized anxiety disorder and is currently receiving Transcranial Magnetic Stimulation (TMS) treatments. She also follows up with pulmonology for her COPD and asthma overlap syndrome, where she receives infusions of omalizumab (Xolair). Recent labs indicate mild leukocytosis and blood sugar elevation; the hemoglobin A1c remains normal, mitigating immediate diabetes concerns. LDL cholesterol is currently at 126, which, given a history of atherosclerosis, should ideally be targeted below 70 through diet and exercise. Health Maintenance - Mammogram last done in January 2024, due for repeat. - Pap smear is up to date. - Scheduled for follow-up with gastroenterology in March 2025. - Actively participates in TMS for depression management, now on a tapering schedule. - Advocacy for a low-cholesterol diet and exercise to manage hypercholesterolemia. - Plans to repeat fasting blood sugar test in three months to monitor potential diabetes risk. Social History - Smoker, ceased smoking in January 2022. - Uses Ventolin inhaler (asthma). - Receives TMS therapy. 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 Review of Systems - General: Reports fatigue associated with sinus symptoms. - HEENT: Reports nasal dripping, sore throat. - Respiratory: Reports improvement in asthma symptoms, occasional shortness of breath on exertion. - Neurological: Reports migraine. - Psychiatric: Reports depression and anxiety, undergoing TMS treatment. - Musculoskeletal: Denies new joint or muscle pain beyond known fibromyalgia. Physical Exam - HEENT- Dripping noted in the throat during mouth examination. Results - Labs: Blood count is fine, mild leukocytosis noted. Blood sugar elevated at 135 mg/dL. LDL cholesterol at 126 mg/dL. Vitamin B12 slightly elevated at 1047. - Urine: Negative. Plan For her sinus issues, continuation of Demista nasal spray, and possible use of Zithromax is suggested given her history of sinus infections. A repeat fasting blood sugar in three months is crucial, keeping an eye on potential diabetes development, considering the last reading of 135 mg/dL. Hypercholesterolemia requires attention, targeting an LDL less than 70 mg/dL through diet and exercise due to known atherosclerotic changes. TMS therapy for depression and anxiety is confirmed, with a notable regimen adjustment. Continued coordination with pulmonology, ensuring adherence to omalizumab for asthma/COPD overlap syndrome, is essential. Patient was informed and verbally consented to the use of an ambient scribe for clinic note documentation during this visit. Discussion Notes I engaged the patient in a discussion emphasizing the need for consistent management of her chronic conditions. We highlighted the importance of a low cholesterol diet and regular exercise to control her LDL levels due to her existing atherosclerosis. Options for antibiotic use were explored, with Zithromax discussed based on her sinus infection tendencies. The need to accurately monitor her blood sugar was underscored with a plan for repeat testing to preempt diabetes management. We reviewed the benefits and tapering schedule of her TMS treatment and addressed ongoing pulmonology support for her asthma-COPD overlap syndrome. Patient Instructions - Continue taking Demista nasal spray as directed. - Monitor symptoms and use Zithromax if prescribed for infection. - Recheck fasting blood sugar in three months. - Follow a low cholesterol diet and maintain regular exercise. - Proceed with TMS tapering schedule as advised. - Keep pulmonology appointments for COPD/asthma management. - Schedule mammogram for screening. - Report any worsening symptoms or new issues promptly. Orders: Orders Lipid Panel 3 Months E78.00 - Pure hypercholesterolemia, unspecified, I70.0 - Atherosclerosis of aorta Comprehensive Met. Panel 3 Months I70.0 - Atherosclerosis of aorta Hemoglobin A1c 3 Months I70.0 - Atherosclerosis of aorta Medications: New azithromycin (Zithromax) For 250 mg dose pack: take 500 mg today (day 1), then 250 mg for 4 days (days 2-5) PO 6 tabs 0RF R09.81 - Nasal congestion
[2025-03-09 09:18] VITALS: BP 110/66; PULSE 86; TEMP 36.2; O2SAT 95; BMI 28.7
--- OUTSIDE RECORDS SUMMARY | 2025-03-09 09:57 | XMS_ITS | Encounter Summary ---
Author Organization [facility] Address [address] [place] [address] Care Team Providers Care Interior Plant Caretaker Name Role Phone Quinn Herndon MD Primary Care Provider [phone] April Vizcaino MD Primary Care Provider Unavailabl e Reason for Visit * Reason Onset Date Comments Provider Call Back 11/19/2013 Encounter Details Date Type Department Care Team Description 11/19/2013 Telephone Gastroenterology - [address] [address] Joshua Barlow PA-C Provider Call Back Social [...] were released to the patient via a [employer] message and it appears that she reviewed them on 10/23/2013. The patient's gastric emptying study results were reviewed on 10/26/2013 and were negative for gastroparesis. These results were released to the patient via a [employer] message and appears she reviewed them on [...] on filedocumented in this encounter Care Teams Interior Plant Caretaker Relationship Specialty Start Date End Date Quinn Herndon MD [address] [place] [address] PCP - General Internal Medicine 08/25/13 11/26/16 April Vizcaino MD [address] [place] [address] PCP - General Internal Medicine 11/27/16 documented as of this encounter
--- OUTSIDE RECORDS SUMMARY | 2025-03-09 09:57 | XMS_ITS | Patient Health Record ---
Author Organization [facility] Address [address] [place] [address] Care Team Providers Care Precision Optical Goods Worker Name Role Phone Po April SHEEHAN Primary [...] Status W/U Status Risk Notes Problem Nausea (556508798) Nausea (787.02) Active confirmed Problem Epigastric pain (11083255) Epigastric pain (789.06) Active confirmed Plan Of Treatment Future Test Test Name Order Date UPPER GI ENDOSCOPY 07/17/2013 Insurance Providers Payer Name Payer Address Payer Phone Subscriber Number Group Number Insured Name Patient Relationship to Insured Coverage Start Date Coverage End Date MEDICARE [place] [address] [place] [address] [id number] JESICA CLAUDIA Self - patient is the insured MEDICAID OF [facility] [address] [place] [address] [id number] JESICACLAUDIA LOPEZ Self - patient is the insured Medical (General) History Medical History History ICD Code egd abd pain epigastric pain benign heart murmur-for which no antibio tic prophylaxis are taken. anxiety attacks allergies
--- OUTSIDE RECORDS SUMMARY | 2025-03-09 09:57 | XMS_ITS | Encounter Summary ---
Author Organization [facility] Address [address] [place] [address] Care Team Providers Care Art Gallery Internship Name Role Phone April Vizcaino MD Primary Care Provider Unavailabl e Reason for Visit * Reason Onset Date Comments Prior Authorization 01/10/2018 Encounter Details Date Type Department Care Team Description 01/10/2018 Telephone Gastroenterology - [address] [address] Colt Fitzpatrick MD Prior Authorization Social History Tobacco Use Types Packs/Day Years Used Date Smoking Tobacco: Former Cigarettes 0.3 Q uit: 09/06/2015 Smokeless Tobacco: Former Comments:Started @ age 18 Alcohol Use Standard Drinks/Week Comments No 0 (1 standard drink = 0.6 oz pur e alcohol) Sex Assigned at Date Recorded Not on file documented as of this encounter Miscellaneous Notes * Telephone Encounter - Xiomara Sifuentes M.A. - 01/10/2018 1:32 PM EST Changed to the prontonix. Spoke to pharmacist this rx has been receive and filled. * Telephone Encounter - Yoko Castillo - 01/10/2018 11:03 AM EST Pre Authorization for Medication-do not complete and send this encounter unless you have the fax from the pharmacy. Is this a Cover My Meds request: [place] of Medication DEXILANT Dose of Medication 30MG CAP How does patient take this med? TAKE ONE CAPSULE BY MOUTH DAILY What Pharmacy did the fax come from: [facility], [address] [place] [id number] Pharmacy fax #: [phone] [employer] Information from fax: What Prescription Plan does the patient have? BIN/PCN if applicable: Cardholder ID: Person Code: Relationship Code: Help desk phone: documented in this encounter Plan of Treatment Not on file documented as of this encounter Visit Diagnoses Not on filedocumented in this encounter Care Teams Art Gallery Internship Relationship Specialty Start Date End Date April Vizcaino MD PCP - General Internal Medicine 11/27/16 documented as of this encounter
--- OUTSIDE RECORDS SUMMARY | 2025-03-09 09:57 | XMS_ITS | Encounter Summary ---
Author Organization [facility] Address [address] [place] [address] Care Team Providers Care Car Repairman Name Role Phone Quinn Herndon MD Primary Care Provider [phone] April Vizcaino MD Primary Care Provider Unavailabl e Encounter Details Date Type Department Care Team Description 10/01/2015 Night Triage Doc Medical Records [address] [place] [id number] Abstract, Provider Social History Tobacco Use Types [...] on filedocumented in this encounter Care Teams Car Repairman Relationship Specialty Start Date End Date Quinn Herndon MD [address] [place], [place] [phone] PCP - General Internal Medicine 08/25/13 11/26/16 April Vizcaino MD [address] [place] [address] PCP - General Internal Medicine 11/27/16 documented as of this encounter
--- OUTSIDE RECORDS SUMMARY | 2025-03-09 09:57 | XMS_ITS | Encounter Summary ---
Author Organization [facility] Address [address] [place] [address] Care Team Providers Care Bit Sharpener Operator Name Role Phone Quinn Herndon MD Primary Care Provider [phone] April Vizcaino MD Primary Care Provider Unavailabl e Reason for Visit * Reason Onset Date Comments Swelling 09/02/2015 Encounter Details Date Type Department Care Team Description 09/02/2015 Telephone Adult Medicine [facility] [address] [place], [place] [id number] Quinn Herndon MD [address] [place] [address] Swelling Social History Tobacco Use Types Packs/Day Years Used Date Smoking Tobacco: Every Day Cigarettes 0.3 Smokeless Tobacco: Current Comments:Started @ age 18 Alcohol Use Standard Drinks/Week Comments No 0 (1 standard drink = 0.6 oz pur e alcohol) Sex Assigned at Date Recorded Not on file documented as of this encounter Miscellaneous Notes * Telephone Encounter - Kathe Jones R.N. - 09/02/2015 12:54 PM EDT [phone] (home) [phone] (work) call placed to patient she continues with L arm and shoulder pain L arm continue to be swollen limited ROM L arm has mri today at 4 pm woke up today, arm is more painful and swollen pain is in back of shoulder ,around shoulder and down arm she is using ice and naproxyn, no relief able to barely move arm she has an MRI scheduled today follow up with [facility] on Saturday she was told to call if worse, she is questioning something stronger for pain * Telephone Encounter - Letty Ellington - 09/02/2015 12:35 PM EDT Patient calling back states her arm is swollen and in pain would like to be seen today for it has an MRI at 4 today * Telephone Encounter - Kaylen Greene - 09/02/2015 11:26 AM EDT Symptoms patient is presenting: patient arm is swollen a lot more, painful, she does have a mri fortoday @ 4:00 for her arm. If pain or injury related was it due to an accident at work or from a motor vehicle accident? NO If yes, gather 3rd libertarian insurance information Date of accident/Injury: NA How long has patient had these symptoms?: ongoing getting worse. PCP: Quinn Herndon [place] / Product Type: [place]ARE [id number] documented in this encounter Plan of Treatment Not on file documented as of this encounter Visit Diagnoses Not on filedocumented in this encounter Care Teams Bit Sharpener Operator Relationship Specialty Start Date End Date Quinn Herndon MD [address] [place] [address] PCP - General Internal Medicine 08/25/13 11/26/16 April Vizcaino MD [address] [place] [address] PCP - General Internal Medicine 11/27/16 documented as of this encounter
--- OUTSIDE RECORDS SUMMARY | 2025-03-09 09:57 | XMS_ITS | Clinical Summary ---
Author Organization [facility] it Address [address] [place] [address] Care Team Providers Care Sash Clamp Operator Name Role Phone April Vizcaino MD Primary Care Provider [phone] Social History Tobacco Use Types Packs/Day Years [...] RESULTING AGENCY - 06/18/2018 9:05 AM EDT [id number] THINPREP PAP, IMAGED: ATYPICAL SQUAMOUS CELLS OF [...] Recently Relevant to Health Maintenance Care Teams Sash Clamp Operator Relationship Specialty Start Date End Date April Vizcaino MD [address] [place] [address] [address] [facility] [place] [address] PCP - General Internal Medicine 11/27/16
--- OUTSIDE RECORDS SUMMARY | 2025-03-09 09:57 | XMS_ITS | Encounter Summary ---
Author Organization [facility] Address [address] [place] [address] Care Team Providers Care Corrugator Name Role Phone Quinn Herndon MD Primary Care Provider [phone] April Vizcaino MD Primary Care Provider Unavailabl e Encounter Details Date Type Department Care Team Description 12/16/2015 Orders Only Adult Medicine [address] [phone] Joshua Palacios PA-C [address] [place] [address] Social History Tobacco Use Types Packs/Day Years [...] on filedocumented in this encounter Care Teams Corrugator Relationship Specialty Start Date End Date Quinn Herndon MD [address] [place] [address] 21493 PCP - General Internal Medicine 08/25/13 11/26/16 April Vizcaino MD [address] [place] [address] 78365 PCP - General Internal Medicine 11/27/16 documented as of this encounter
--- OUTSIDE RECORDS SUMMARY | 2025-03-09 09:57 | XMS_ITS | Encounter Summary ---
Author Organization [facility] Address [address] [place] [address] Care Team Providers Care Mva Still Operator Name Role Phone Quinn Herndon MD Primary Care Provider [phone] April Vizcaino MD Primary Care Provider Unavailabl e Reason for Visit * Reason Onset Date Comments refill request 03/09/2015 Encounter Details Date Type Department Care Team Description 03/09/2015 Refill Adult Medicine [address] [phone] Quinn Herndon MD [address] [place] [address] refill request Social History Tobacco Use Types Packs/Day Years Used Date Smoking Tobacco: Some Days Cigarettes Smokeless Tobacco: Current Comments:Started @ age 18, u sing patch 3-4 cigs per day Alcohol Use Standard Drinks/Week Comments No 0 (1 standard drink = 0.6 oz pur e alcohol) Sex Assigned at Date Recorded Not on file documented as of this encounter Miscellaneous Notes * Telephone Encounter - Kathe Corado L.P.N. - 03/09/2015 10:38 AM EDT Which med? * Telephone Encounter - Susi Julieth - 03/09/2015 10:11 AM EDT Patient would like script to be: E-PRESCRIBED/FAXED TO PHARMACY WHEN WAS THE PATIENT'S LAST APPOINTMENT IN ADULT MEDICINE? 01/15/15 WHEN WAS THE LAST TIME THE PATIENT SAW THEIR PCP? Same as above Does patient have an upcoming appointment? Yes 03/29/15 (THE MEDICATION REQUESTED IS ON THE MED LIST ABOVE) All of the medications requested were on the CURRENT MEDS list Did you check the Pharmacy information above?: YES Patient wants: 30 -day supply/with refills Is this a mail order prescription request ? NO Patients current insurance carrier is: [place] / Plan: MED[place]ARE-[place] / Product Type: MEDICARE [id number] documented in this encounter Plan of Treatment Not on file documented as of this encounter Visit Diagnoses Not on filedocumented in this encounter Care Teams Mva Still Operator Relationship Specialty Start Date End Date Quinn Herndon MD [address] [place] [phone] PCP - General Internal Medicine 08/25/13 11/26/16 April Vizcaino MD [address] [place] [address] 69[address] PCP - General Internal Medicine 11/27/16 documented as of this encounter
--- OUTSIDE RECORDS SUMMARY | 2025-03-09 09:57 | XMS_ITS | Encounter Summary ---
Author Organization [facility] Address [address] [place] [address] Care Team Providers Care School Photograph Editor Name Role Phone Quinn Herndon MD Primary Care Provider [phone] April Vizcaino MD Primary Care Provider Unavailabl e Encounter Details Date Type Department Care Team Description 11/15/2015 Release of Information Medical Records [address] [place] [address] Abstract, Provider Social History Tobacco Use Types [...] on filedocumented in this encounter Care Teams School Photograph Editor Relationship Specialty Start Date End Date Quinn Herndon MD [address] [place], [place] [phone] PCP - General Internal Medicine 08/25/13 11/26/16 April Vizcaino MD [address] [place] [id number] PCP - General Internal Medicine 11/27/16 documented as of this encounter
--- OUTSIDE RECORDS SUMMARY | 2025-03-09 09:57 | XMS_ITS | Encounter Summary ---
Author Organization [facility] Address [address] [place] [address] Care Team Providers Care Assistant Professor Of Dietetics Name Role Phone April Vzicaino MD Primary Care Provider Unavailabl e Reason for Visit * Reason Onset Date Comments Provider Call Back 02/28/2017 Encounter Details Date Type Department Care Team Description 02/28/2017 Telephone Gastroenterology - [address] [address] Joshua Barlow PA-C Provider Call Back Social [...] encounter Miscellaneous Notes * Telephone Encounter - Yoko Castillo - 02/28/2017 2:42 PM EDT Message left for patient to return call, relayed message (see below) * Telephone Encounter - Colt Fitzpatrick MD - 02/28/2017 2:12 PM EDT She needs an appointment with one of us for further evaluation. Until then she can use [id number] Imodium. * Telephone Encounter - Yoko [place] - 02/28/2017 2:04 PM EDT Pt had her gallbladder removed in 11/2016, she says the last 3 weeks she has been having diarrhea everytime she eats. She is in a gluten free diet per Dr Chatterjee who performed the surgery. She wants to know if there is something she can take for this. Please advise in Joshua's absence. Patient is also leaving Dr Chatterjee a message documented in this encounter Plan of Treatment Not on file documented as of this encounter Visit Diagnoses Not on filedocumented in this encounter Care Teams Assistant Professor Of Dietetics Relationship Specialty Start Date End Date April Vizcaino MD PCP - General Internal Medicine 11/27/16 documented as of this encounter
--- OUTSIDE RECORDS SUMMARY | 2025-03-09 09:57 | XMS_ITS | Encounter Summary ---
Author Organization [facility] Address [address] [place] [address] Care Team Providers Care Wash Test Checker Name Role Phone April Vizcaino MD Primary Care Provider Unavailabl e Encounter Details Date Type Department Care Team Description 06/19/2022 Wall Worker Report Medical Records [address] [place] [address] April Vizcaino MD Social History Tobacco Use Types Packs/Day Years [...] on filedocumented in this encounter Care Teams Wash Test Checker Relationship Specialty Start Date End Date April Vizcaino MD PCP - General Internal Medicine 11/27/16 documented as of this encounter
--- OUTSIDE RECORDS SUMMARY | 2025-03-09 09:57 | XMS_ITS | Encounter Summary ---
Author Organization [facility] Address [address] [place] [address] Care Team Providers Care Fountain Vending Mechanic Name Role Phone Quinn Herndon MD Primary Care Provider [phone] April Vizcaino MD Primary Care Provider Unavailabl e Encounter Details Date Type Department Care Team Description 07/24/2015 Night Triage Doc Medical Records [address] [place] [address] Abstract, Provider Social History Tobacco Use Types [...] on filedocumented in this encounter Care Teams Fountain Vending Mechanic Relationship Specialty Start Date End Date Quinn Herndon MD [address] [place] [address] [phone] PCP - General Internal Medicine 08/25/13 11/26/16 April Vizcaino MD [address] [place] [address] PCP - General Internal Medicine 11/27/16 documented as of this encounter
--- OUTSIDE RECORDS SUMMARY | 2025-03-09 09:57 | XMS_ITS | Encounter Summary ---
Author Organization [facility] Address [address] [place] [address] Care Team Providers Care Lieutenant/Deputy Name Role Phone Quinn Herndon MD Primary Care Provider [phone] April Vizcaino MD Primary Care Provider Unavailabl e Encounter Details Date Type Department Care Team Description 04/05/2014 Night Triage Doc Medical Records [address] [place] [address]653 Abstract, Provider Social History Tobacco Use Types [...] on filedocumented in this encounter Care Teams Lieutenant/Deputy Relationship Specialty Start Date End Date Quinn Herndon MD [address] [place] [address] [phone] PCP - General Internal Medicine 08/25/13 11/26/16 April Vizcaino MD [address] [place] [address] PCP - General Internal Medicine 11/27/16 documented as of this encounter
--- OUTSIDE RECORDS SUMMARY | 2025-03-09 09:57 | XMS_ITS | Encounter Summary ---
Author Organization [facility] Address [address] [place] [address] Care Team Providers Care Deputy Treasurer Name Role Phone Quinn Herndon MD Primary Care Provider April Vizcaino MD Primary Care Provider Unavailabl e Reason for Visit * Reason Onset Date Comments TEST RESULTS 01/05/2014 Encounter Details Date Type Department Care Team Description 01/05/2014 Telephone Adult Medicine [facility] [address] [place] [address] [phone] Quinn Herndon MD [address] [place] [phone] TEST RESULTS; Social History Tobacco Use Types [...] performed: 01/04/14 Where was the test performed: [facility] Who ordered this test?: ZAHRA GARDNER Is [...] on filedocumented in this encounter Care Teams Deputy Treasurer Relationship Specialty Start Date End Date Quinn Herndon MD [address] [place] [address]79 PCP - General Internal Medicine 08/25/13 11/26/16 April Vizcaino MD [address] [place] [address] 15288 PCP - General Internal Medicine 11/27/16 documented as of this encounter
--- OUTSIDE RECORDS SUMMARY | 2025-03-09 09:57 | XMS_ITS | Encounter Summary ---
Author Organization [facility] Address [address] [place] [address] Care Team Providers Care Rate Inserter Name Role Phone Quinn Herndon MD Primary Care Provider [phone] April Vizcaino MD Primary Care Provider Unavailabl e Encounter Details Date Type Department Care Team Description 06/09/2015 Night Triage Doc Medical Records [address] [place] [address] Abstract, Provider Social History Tobacco Use Types [...] on filedocumented in this encounter Care Teams Rate Inserter Relationship Specialty Start Date End Date Quinn Herndon MD [address] [place] [address] [phone] PCP - General Internal Medicine 08/25/13 11/26/16 April Vizcaino MD [address] [place] [phone] PCP - General Internal Medicine 11/27/16 documented as of this encounter
--- OUTSIDE RECORDS SUMMARY | 2025-03-09 09:57 | XMS_ITS | Encounter Summary ---
Author Organization [facility] Address [address] [place] [address] Care Team Providers Care Lineman Apprentice Name Role Phone Quinn Herndon MD Primary Care Provider [phone] April Vizcaino MD Primary Care Provider Unavailabl e Encounter Details Date Type Department Care Team Description 12/18/2013 Railways Assistant Report Medical Records [address] [place] [address] Gigi Salamanca MD Social History Tobacco Use Types Packs/Day [...] on filedocumented in this encounter Care Teams Lineman Apprentice Relationship Specialty Start Date End Date Quinn Herndon MD [address] [place], [place] [phone] PCP - General Internal Medicine 08/25/13 11/26/16 April Vizcaino MD [address] [place] [address]24 PCP - General Internal Medicine 11/27/16 documented as of this encounter
--- OUTSIDE RECORDS SUMMARY | 2025-03-09 09:57 | XMS_ITS | Encounter Summary ---
Author Organization [facility] Address [address] [place] [address] Care Team Providers Care Photography Professor Name Role Phone Arpil Vizcaino MD Primary Care Provider Unavailabl e Encounter Details Date Type Department Care Team Description 12/11/2016 Hospital Medical Records [address] [place] [address] Otf Chatterjee MD [address] [place] [address] Social History Tobacco Use Types Packs/Day Years [...] on filedocumented in this encounter Care Teams Photography Professor Relationship Specialty Start Date End Date April Vizcaino MD PCP - General Internal Medicine 11/27/16 documented as of this encounter
--- OUTSIDE RECORDS SUMMARY | 2025-03-09 09:57 | XMS_ITS | Encounter Summary ---
Author Organization [facility] Address [address] [place] [address] Care Team Providers Care Milanese Knitting Machine Operator Name Role Phone Quinn Herndon MD Primary Care Provider [phone] April Vizcaino MD Primary Care Provider Unavailabl e Encounter Details Date Type Department Care Team Description 02/28/2015 Night Triage Doc Medical Records [address] [place] [address]687 Abstract, Provider Social History Tobacco Use Types [...] on filedocumented in this encounter Care Teams Milanese Knitting Machine Operator Relationship Specialty Start Date End Date Quinn Herndon MD [address] [place] [address] [phone] PCP - General Internal Medicine 08/25/13 11/26/16 April Vizcaino MD [address] [place] [address] 41750 PCP - General Internal Medicine 11/27/16 documented as of this encounter
--- OUTSIDE RECORDS SUMMARY | 2025-03-09 09:57 | XMS_ITS | Clinical Summary ---
Author Organization [facility] Address [address] [place] [address] Care Team Providers Care Care Aide Name Role Phone April Vizcaino MD Primary Care Provider Unavailabl e Allergies Active Allergy Reactions Severity Noted Date Comments Pain Medications 04/09/2015 Any narcotic pain meds hyper Sudafed 09/01/2013 Rapid heartbeat Medications Medication Sig Dispensed Refills Start Date End Date Status Eszopiclone (LUNESTA) 3 MG TABS Take 3 mg by mouth at bedtime as needed. insomnia 0 Active clonazepam (KLONOPIN) 1 MG tablet Take 1 mg by mouth at bedtime. B.H. 0 Active loratadine (CLARITIN) 10 MG tablet Take 1 Tab by mouth daily. 30 Tab 5 11/20/2016 Active sucralfate (CARAFATE) 1 G tablet TAKE 1 TABLET BY MOUTH FOUR TIMES DAILY 120 Tab 0 04/23/2017 Active escitalopram (LEXAPRO) 10 MG tablet Take 10 mg by mouth daily. 0 Active Dexlansoprazole 30 MG CAPSULE DELAYED RELEASE Take by mouth. 0 Active Active Problems Problem Noted Date Family history of breast cancer 07/17/20 18 Overview: Sent for BRCA testing by PCP. Abnormal Papanicolaou smear of cervix Overview: 06/12/2018 ASCUS, positive HRHPV 07/15/2018 Adequate colpo, ECC negative Repeat pap in ONE year. IBS (irritable bowel syndrome) 4 Environmental allergies 09/02/2013 Gastritis 09/02/2013 Panic disorder with agoraphobia 09/02/20 13 Obsessive compulsive disorder 09/02/2013 Major depression 09/02/2013 Insomnia 09/02/2013 GERD (gastroesophageal reflux disease) 1 Resolved Problems Problem Noted Date Resolved Date Polyps of gallbladder 06/06/2016 06/12/2018 Overview: Adamaris 06/02 Immunizations Name Administration Dates Next Due Influenza (> 6 Months) 09/17/2014 Influenza Flu (PT Reported) 08/18/2013 Tdap 09/17/2014 Family History Medical History Relation Name Comments CA Breast Aunt 1 maternal CA Breast Aunt 2 maternal Cholesterol Level Brother no contact Father's side Arthritis Maternal Grandmother Cancer, Other Maternal Grandmother unknow n, years ago Stroke Maternal Grandmother Arthritis Mother said to be RA Kidney Failure Mother HTN, age 64 CA Colon Mother's side cousin, 3rd CA Breast Sister 2 sisters CA Brain Uncle CA Ovarian Negative Hx Relation Name Status Comments Aunt 1 Aunt 2 Brother Father's side Maternal Grandmother Mother Mother's side Sister 2 sisters Alive Uncle Social History Tobacco Use Types Packs/Day Years Used Date Smoking Tobacco: Every Day Cigarettes 0.3 Last attempted to quit: 09/06/2015 Smokeless Tobacco: Former Tobacco Cessation:Ready to Q uit: No; Counseling Given: Yes Comments:Started @ age 18 Alcohol Use Standard Drinks/Week Comments No 0 (1 standard drink = 0.6 oz pur e alcohol) Sex Assigned at Date Recorded Not on file Last Filed Vital Signs Vital Sign Reading Time Taken Comments Blood Pressure 131/78 07/15/2018 11:22 AM EDT Pulse 87 07/15/2018 11:22 AM EDT Temperature 36.3 ??C (97.4 ??F) 01/02/2017 9:51 AM ES T Respiratory Rate 16 07/15/2018 11:22 AM EDT Oxygen Saturation 99% 02/07/2016 1:15 PM EDT Inhaled Oxygen Concentration - - Weight 69.1 kg (152 lb 4.8 oz) 07/15/2018 11:22 AM EDT Height 162.6 cm (5' 4 ) 07/15/2018 11:22 AM EDT Body Mass Index 26.14 07/15/2018 11:22 AM EDT Plan of Treatment Health Maintenance Due Date Last Done Comments Covid-19 Vaccine (#1) 1972 DEPRESSION SCREEN 11/05/2014 11/05/2013 BASELINE HEALTH EXAM 40-64 01/15/2018, 01/16/2016, 09/17/2014, Additional history exists MAMMOGRAM 05/20/2019 05/20/2018, 0301/2016, 11/19/2012 (External Completion) CHOLESTEROL SCREENING 01/15/2021 01/16/2016 , 01/15/2015, 09/01/2013 CERVICAL CANCER SCREENING 06/12/2021 06/12/2018, SHINGLES VACCINE (1 of 2) 2022 COLON CANCER SCREENING 04/20/2024 04/20/2014 DTAP/TDAP/TD (2 - Td or Tdap) 09/17/2024 09/17/2014 BMI CHECK/ADVISE 11/18/2024 06/12/2018, , 09/27/2016 INFLUENZA (Season Ended) 2025 021, 09/17/2014, 08/18/2013 PNEUMOCOCCAL VACCINE FOR HIG H RISK PATIENTS (#1) 2037 Care Teams Care Aide Relationship Specialty Start Date End Date Po, MD April PCP - General Internal Medicine 11/27/16
--- OUTSIDE RECORDS SUMMARY | 2025-03-09 09:57 | XMS_ITS | Encounter Summary ---
Author Organization [facility] Address [address] [place] [address] Care Team Providers Care Owner Operator Tanker Truck Driver Name Role Phone Quinn Herndon MD Primary Care Provider [phone] April Vizcaino MD Primary Care Provider Unavailabl e Encounter Details Date Type Department Care Team Description 01/01/2014 Night Triage Doc Medical Records [address] [place] [address] Abstract, Provider Social History Tobacco Use Types [...] on filedocumented in this encounter Care Teams Owner Operator Tanker Truck Driver Relationship Specialty Start Date End Date Quinn Herndon MD [address] [place] [address] [phone] PCP - General Internal Medicine 08/25/13 11/26/16 April Vizcaino MD [address] [place] [address] 58570 PCP - General Internal Medicine 11/27/16 documented as of this encounter
--- OUTSIDE RECORDS SUMMARY | 2025-03-09 09:57 | XMS_ITS | Encounter Summary ---
Author Organization [employer] [facility] Address [address] [place] [address] Care Team Providers Care Sew Out Operator Name Role Phone Quinn Herndon MD Primary Care Provider [phone] April Vizcaino MD Primary Care Provider Unavailabl e Encounter Details Date Type Department Care Team Description 10/12/2015 Release of Information Medical Records [address] [place] [address] Abstract, Provider Social History Tobacco Use Types [...] on filedocumented in this encounter Care Teams Sew Out Operator Relationship Specialty Start Date End Date Quinn Herndon MD [address] [place], [place] [phone] PCP - General Internal Medicine 08/25/13 11/26/16 April Vizcaino MD [address] [place] [address] PCP - General Internal Medicine 11/27/16 documented as of this encounter
--- OUTSIDE RECORDS SUMMARY | 2025-03-09 09:57 | XMS_ITS | Encounter Summary ---
Author Organization [facility] Address [address] [place] [address] Care Team Providers Care Account Technician Name Role Phone Quinn Herndon MD Primary Care Provider [phone] April Vizcaino MD Primary Care Provider Unavailabl e Encounter Details Date Type Department Care Team Description 03/03/2014 Engraver Block Report Medical Records [address] [place] [address] Nick Bishop Social History Tobacco Use Types [...] on filedocumented in this encounter Care Teams Account Technician Relationship Specialty Start Date End Date Quinn Herndon MD [address] [place], [place] [phone] PCP - General Internal Medicine 08/25/13 11/26/16 April Vizcaino MD [address] [place] [phone] PCP - General Internal Medicine 11/27/16 documented as of this encounter
--- OUTSIDE RECORDS SUMMARY | 2025-03-09 09:57 | XMS_ITS | Encounter Summary ---
Author Organization [employer] [facility] Address [address] [place] [address] Care Team Providers Care Deli Associate Name Role Phone April Vizcaino MD Primary Care Provider Unavailabl e Encounter Details Date Type Department Care Team Description 05/24/2017 SCAN Medical Records [address] [place] [address] Abstract, Provider Social History Tobacco Use Types [...] on filedocumented in this encounter Care Teams Deli Associate Relationship Specialty Start Date End Date April Vizcaino MD PCP - General Internal Medicine 11/27/16 documented as of this encounter
--- OUTSIDE RECORDS SUMMARY | 2025-03-09 09:57 | XMS_ITS | Encounter Summary ---
Author Organization [facility] Address [address] [place] [address] Care Team Providers Care Experimental Aircraft Mechanic Name Role Phone Quinn Herndon MD Primary Care Provider [phone] April Vizcaino MD Primary Care Provider Unavailabl e Encounter Details Date Type Department Care Team Description 04/13/2014 Night Triage Doc Medical Records [address] [place] [address]758 Abstract, Provider Social History Tobacco Use Types [...] on filedocumented in this encounter Care Teams Experimental Aircraft Mechanic Relationship Specialty Start Date End Date Quinn Herndon MD [address] [place] [address] [phone] PCP - General Internal Medicine 08/25/13 11/26/16 April Vizcaino MD [address] [place] [phone] PCP - General Internal Medicine 11/27/16 documented as of this encounter
--- OUTSIDE RECORDS SUMMARY | 2025-03-09 09:58 | XMS_ITS | Data Portability ---
Author Organization [employer] [place] [facility] [place] Address [address] [place] [phone] Care Team Providers Care Mold Yard Crane Operator Name Role Phone HIM CCA OTHER Assessment Encounter Date Assessment Date Assessment LastModified by Organization Details LastModified Time 10/12/2024 10/12/2024 service called f or cough, SOB found 54 milagros with hx asthma COPD on Xolair, has facing end trimmer anxiety c/o return of productive cough, SOB, [...] Assessment and Plan as documented by the Usps Letter Carrier. Patient given the opportunity to ask questions. Our service contacted for an assessment of: Nasal congestion As per above, patient states she has a sinus infection. States that she has pressure in the sinuses on both sides. Also complaining of a mild headache. Initially stated she was not taking anything nmwr-wnv-sghflpe but then stated she was taking Robitussin twice a day and Mucinex every 4 hours without relief. Denies use a nasal decongestant specifically. Has history of asthma and has been seen by this service as well as being followed by Pulmonary. Using her steroid inhaler twice a day. Review of records reveals 7 antibiotic prescriptions over the course of the past year. Per life insurance sales on the scene, vital signs are stable [...] symptoms. Encouraged follow-up with PCP and with facing end trimmer. Ativan abundance of caution prescribed doxycycline for [...] Assessment and Plan as documented by the Usps Letter Carrier. Patient given the opportunity to ask questions. Our service contacted for an assessment of: Nasal congestion As per above, patient states she has a sinus infection. States that she has pressure in the sinuses on both sides. Also complaining of a mild headache. Initially stated she was not taking anything frwd-wky-mikmikm but then stated she was taking Robitussin twice a day and Mucinex every 4 hours without relief. Denies use a nasal decongestant specifically. Has history of asthma and has been seen by this service as well as being followed by Pulmonary. Using her steroid inhaler twice a day. Review of records reveals 7 antibiotic prescriptions over the course of the past year. Per life insurance sales on the scene, vital signs are stable [...] symptoms. Encouraged follow-up with PCP and with facing end trimmer. Ativan abundance of caution prescribed doxycycline for [...] particularly fever chills lightheadedness altered mental status [place] [id number] Not available 01/24/2025 14:37:31 Plan of Treatment Reminders Order Date Submit Date Provider Last Modified By Organization Details Last Modified Time Details Appointments None recorded. Lab None recorded. Referral None recorded. Procedures None recorded. Surgeries None recorded. Imaging None recorded. Medication Orders doxycycline hyclate 100 mg capsule 2024 025 [id number], [address] [place], [place], [id number], 14:37:32 doxycycline hyclate 100 mg capsule 2024 025 [address] [facility], [address] [place], [place], [id number], 14:37:25 doxycycline hyclate 100 mg capsule 2024 025 [address] [facility], [address] [place], [place], [id number], 5 19:38:12 doxycycline hyclate 100 mg capsule [email or web address] [facility] #24943, [address] [place], [place], [id number], 5 19:38:20 prednisone 20 mg tablet 2023 024 [facility] #67326, [address] [place], [place], [id number], 4 22:14:25 levofloxaci n 750 mg tablet 2023 024 [facility] #58980, [employer] [place], [place], [id number], 4 22:14:25 levofloxaci n 750 mg tablet 2023 024 [facility] #31038, [address] [place], [place], [id number], 4 22:17:04 prednisone 10 mg tablet 2023 024 [facility] #90617, [address] [place], [place], [id number], 4 22:17:04 fluconazole 150 mg tablet 2023 024 [facility] #27488, [address] [place], [place], [id number], 4 22:19:10 Patient TargetsNo targets recorded. Patient InstructionsNo instructions recorded. Reason for Referral None Reported. Medical Equipment None Reported. Allergies Allergen ID Allergen Name Allergen Category Reaction Reaction Severity Criticality Documentation Date Start Date Code Code System Note Provider Name and Address Organization Details Recorded Time 92375 oxycodone medicatio n Not available Not available Not available 10/12/2024 0754 RxNorm Not Available [facility] - production 4 20:09:51 37933 Sudafed medicatio n Not available Not available Not available 10/12/202424246 2 RxNorm Not Available [facility] - production 4 20:09:51 85210 acetamino phen / dextromet horphan / doxylamin e / pseudoeph edrine medicatio n Not available Not available Not available 01/24/2025 92178 4 RxNorm Not Available [facility] - [facility] [place] 5 12:16:23 Medications Name Sig Start Date [...] Updated DateTime 5 80 /min 20 /min 57756.8 8 g 162.56 cm 98.1 [degF] 96 [...] SNOMED-CT Code Diagnosis ICD10 Code Diagnosis Note [id number] Sonia Good MD [facility] [address] [place] [phone] 10/12/2024 21:00:35 10/12/2024 23:38:11 Acute exacerbation of chronic obstructive pulmonary disease 708484875 J44.1 Candidiasis of vagina 72 912156 B37.31 [id number] Brittany Lopez MD [facility] - [facility] [address] [place] [phone] 12/18/2024 17:21:19 12/22/2024 16:07:56 Exacerbation of intermittent asthma 145891322 J45.21 Congestion of nasal sinus 16010737 R09.81 [id number] Brittany Lopez MD [place] [phone] 01/24/2025 14:28:21 01/24/2025 19:29:04 Exacerbation of intermittent asthma 456240180 J45.21 Health Concerns Section Related Observation LastModified by Organization Detai ls LastModified Time None Recorded Concern Status LastModified by Organization Details LastModified Time None Recorded Advance Directives Directive None Recorded Payers Encounter Date Sequence Insurance Name Policy Number Policy Benitez Covered Member ID Benitez Member ID Guarantor Name 10/12/2024 1 [facility] - DOS ON OR AFTER 2023 - DUAL ELIGIBLE - HALF-WAY OPTIONS AND ONE CARE (MEDICARE REPLACEMENT/ADV ANTAGE - HMO) Zoila Giron [id number] Zoila Mack 12/18/2024 1 [facility] - DOS ON OR AFTER 2023 - DUAL ELIGIBLE - HALF-WAY OPTIONS AND ONE CARE (MEDICARE REPLACEMENT/ADV ANTAGE - HMO) Zoila Mack [id number] Zoila Mack 01/24/2025 1 [facility] - DOS ON OR AFTER 2023 - DUAL ELIGIBLE - HALF-WAY OPTIONS AND ONE CARE (MEDICARE REPLACEMENT/ADV ANTAGE - HMO) Zoila Mack [id number] Zoila Mack Notes Date Note Type Note [...] ....................... ....................... ....................... ....................... ....................... ....................... ... Usps Letter Carrier Note From Angel Shabazz: This 54-year-old female [...] Patient is under the care of a facing end trimmer is scheduled to see him in two [...] nondistended. No lower extremity edema.[facility] spoke directly to patient and provided significant education. This patient was treated with levofloxacin 750 mg PO and prednisone 40 mg. Patient was instructed to follow up with her facing end trimmer tomorrow and to present to the ED for any new or worsening symptoms, which I reviewed with her. The patient was given the opportunity to ask questions to the [facility] and myself and is agreeable to this plan. ....................... ....................... ....................... ....................... ....................... ....................... ... [facility] Consulted: Sonia Good ....................... ....................... ....................... ....................... ....................... ....................... ... Disposition: Fulfilled Sonia Good MD [address] [place] [address],[address], [place], [address], [facility] - [employer] 10/12/2024 22:19:58 12/18/2024 text/html HPI: mbr with complaints of cough congestion producing yellow phlegm x1wk, states feeling weak/lightheaded/RAMÍREZ and increased SOB with exertion, denies any CP/N/V fevers or chills, speaking in full sentences. requesting [facility] for evaluationProtocol Used: Cough - Acute ProductiveProtocol-Base d Disposition: Consider [facility] Community clinician, MD/TELETYPE CLERK triage, PCP, or Urgent Care Visit within [...] at 12/18/2024 - 16:18 Comments: Reviewed HPI Usps Letter Carrier Organization Information for Britton oLpes Business Legal Name: [employer]? ? Address: [address] [place] [address], Biogeographer: Jeremy Sweeney MD CLIA No.: [id number] Usps Letter Carrier POC Test Results from [employer] Rapid COVID antigen (17:24:13) COVID: - Rapid influenza antigen (17:24:14) Flu: - ....................... ....................... ....................... ....................... ....................... ....................... ... Usps Letter Carrier Note From Britton Lopes: [facility] makes pt contact. She opens the front door and invites [facility] in. She is generally well-appearing. Her [...] BID and reported this change to her facing end trimmer. She is also giving herself her home neb treatments about three times per day. She consents to treatment and evaluation today. [facility] obtains pt consent and uploads. Vital signs are obtained and pt is swabbed for COVID/flu and physically assessed. Lung sounds are clear and equal, but diminished bilateral. She is tender to tapping over the sinuses and throat is red, but glands are not swollen. Remaining physical exam is unremarkable. [facility] contacts [facility] and discusses the above. [facility] orders [facility] administer 1 tablet (100mg) doxycycline and calls in a prescription to pt's pharmacy. Pt thanks [facility] for coming. [facility] is clear. Report complete by REJI Lopes [id number]. ....................... ....................... ....................... ....................... ....................... ....................... ... [facility] Consulted: Brittany Lopez ....................... ....................... ....................... ....................... ....................... ....................... ... Disposition: Fulfilled Brittany Lopez MD [address] [place] [address],[address] [facility], [place], [address], [employer] 12/18/2024 19:38:36 01/24/2025 text/html HPI: c/o sore [...] ....................... ... [facility] Nurse Triage Notes (Iggy Tobar): Chief Complaints: Sore Throat PMH: Chronic Obstructive Pulmonary Disease (COPD), Asthma PMH Reviewed at 01/24/2025:16 Allergies Reviewed at 01/24/2025 - 12:16 Comments: Reviewed HPI Usps Letter Carrier Organization Information for Agnel Shabazz Business Legal Name: [facility] Address: [address] [place] [address], [place] [address], Biogeographer: David Saul MD FAUSTO No.: [id number] Usps Letter Carrier POC Test Results from Angel Shabazz Rapid COVID antigen (14:32:17) COVID: - Rapid influenza antigen (14:32:17) Flu: - ....................... ....................... ....................... ....................... ....................... ....................... ... Usps Letter Carrier Note From Angel Shabazz: This 54-year-old female [...] I recommend she follows up with her facing end trimmer this week and present to the emergency department for any new or worsening severe symptoms such as chest pain, severe shortness of breath, high fever, altered mental status. The patient was given the opportunity to ask questions and is agreeable to this plan. [facility] Medication Orders: doxycycline hyclate 100 mg capsule: Administered ....................... ....................... ....................... ....................... ....................... ....................... ... [facility] Consulted: Brittany Lopez ....................... ....................... ....................... ....................... ....................... ....................... ... Disposition: Sandra Lopez MD [address] [facility],[address], [place], [address], [employer] 01/24/2025 15:01:56 OBGyn Episode No OBEpisode recorded.
--- OUTSIDE RECORDS SUMMARY | 2025-03-09 09:58 | XMS_ITS | Encounter Summary ---
Author Organization [facility] Address [address] [place] [address] Care Team Providers Care Coat Cutter Name Role Phone Quinn Herndon MD Primary Care Provider [phone] April Vizcaino MD Primary Care Provider Unavailabl e Encounter Details Date Type Department Care Team Description 02/09/2016 Transfer Records Medical Records [address] [place] [address] Social History Tobacco Use Types Packs/Day Years [...] on filedocumented in this encounter Care Teams Coat Cutter Relationship Specialty Start Date End Date Quinn Herndon MD [address] [place] [address] PCP - General Internal Medicine 08/25/13 11/26/16 April Vizcaino MD [address] [place], [place] [phone] PCP - General Internal Medicine 11/27/16 documented as of this encounter
--- OUTSIDE RECORDS SUMMARY | 2025-03-09 09:58 | XMS_ITS | Encounter Summary ---
Author Organization [employer] [facility] Address [address] [place] [address] Care Team Providers Care Helicopter Officer Name Role Phone Quinn Herndon MD Primary Care Provider April Vizcaino MD Primary Care Provider Unavailabl e Encounter Details Date Type Department Care Team Description 01/28/2015 Night Triage Doc Medical Records [address] [place] [address] Abstract, Provider Social History Tobacco Use Types [...] on filedocumented in this encounter Care Teams Helicopter Officer Relationship Specialty Start Date End Date Quinn Herndon MD [address] [place] [phone] PCP - General Internal Medicine 08/25/13 11/26/16 April Vizcaino MD [address] [place] [address] PCP - General Internal Medicine 11/27/16 documented as of this encounter
--- OUTSIDE RECORDS SUMMARY | 2025-03-09 09:58 | XMS_ITS | Encounter Summary ---
Author Organization [facility] Address [address] [place] [address] Care Team Providers Care Poll Watcher Name Role Phone Quinn Herndon MD Primary Care Provider [phone] April Vizcaino MD Primary Care Provider Unavailabl e Reason for Visit * Reason Onset Date Comments Congestion 10/25/2014 Encounter Details Date Type Department Care Team Description 10/25/2014 Telephone Adult Medicine [facility] [address] [place] [phone] Quinn Herndon MD [address] [place] [address] Congestion Social History Tobacco Use Types Packs/Day Years [...] Telephone Encounter - Kathe Jones R.N. - 10/25/2014 12:20 PM EST CAll #1 placed to patient She is c/o cough, congestion and fever. Request appt for today. Appt scheduled today for 115pm withpcp * Telephone Encounter - Nathalia Mickie - 10/25/2014 10:56 AM EST EBOLA: Effective 08/25/14 If patient complains of a temperature greater than 101.5 ask if they have traveled to [place], [place], [place] or [place] or been in contact with anyone who has. Document responses in this message and send to triage. Symptoms patient is presenting: congestion,fever/cough/wants appt today How long has patient had these symptoms?: 2 days PCP: Quinn Herndon Payor: MEDICARE-FREEjit / [place] / Product Type: MEDICARE [id number] documented in this encounter Plan of Treatment Not on file documented as of this encounter Visit Diagnoses Not on filedocumented in this encounter Care Teams Poll Watcher Relationship Specialty Start Date End Date Quinn Herndon MD [address] [place] [address] PCP - General Internal Medicine 08/25/13 11/26/16 April Vizcaino MD [address] [place] [address] PCP - General Internal Medicine 11/27/16 documented as of this encounter
--- OUTSIDE RECORDS SUMMARY | 2025-03-09 09:58 | XMS_ITS | Encounter Summary ---
Author Organization [facility] Address [address] [place] [address] Care Team Providers Care Watermelon Inspector Name Role Phone Quinn Herndon MD Primary Care Provider [phone] April Vizcaino MD Primary Care Provider Unavailabl e Encounter Details Date Type Department Care Team Description 06/18/2014 Night Triage Doc Medical Records [address] [place] [address] Abstract, Provider Social History Tobacco Use Types [...] on filedocumented in this encounter Care Teams Watermelon Inspector Relationship Specialty Start Date End Date Quinn Herndon MD [address] [place] [phone] PCP - General Internal Medicine 08/25/13 11/26/16 April Vizcaino MD [address] [place] [address] PCP - General Internal Medicine 11/27/16 documented as of this encounter
--- OUTSIDE RECORDS SUMMARY | 2025-03-09 09:58 | XMS_ITS | Encounter Summary ---
Author Organization [employer] [facility] Address [address] [place] [address] Care Team Providers Care Oracle Erp Architect Name Role Phone Quinn Herndon MD Primary Care Provider April Vizcaino MD Primary Care Provider Unavailabl e Encounter Details Date Type Department Care Team Description 05/26/2016 Night Triage Doc Medical Records [address] [place] [address] Abstract, Provider Social History Tobacco Use Types [...] on filedocumented in this encounter Care Teams Oracle Erp Architect Relationship Specialty Start Date End Date Quinn Herndon MD [address] [place] [phone] PCP - General Internal Medicine 08/25/13 11/26/16 April Vizcaino MD [address] [place] [address] PCP - General Internal Medicine 11/27/16 documented as of this encounter
--- OUTSIDE RECORDS SUMMARY | 2025-03-09 09:58 | XMS_ITS | Encounter Summary ---
Author Organization [facility] Address [address] [place] [address] Care Team Providers Care Job Press Operator Name Role Phone Quinn Herndon MD Primary Care Provider [phone] April Vizcaino MD Primary Care Provider Unavailabl e Encounter Details Date Type Department Care Team Description 09/28/2014 Release of Information Medical Records [address] [place] [address] Abstract, Provider Social History Tobacco Use Types [...] on filedocumented in this encounter Care Teams Job Press Operator Relationship Specialty Start Date End Date Quinn Herndon MD [address] [place], [place] [phone] PCP - General Internal Medicine 08/25/13 11/26/16 April Vizcaino MD [address] [place] [address] PCP - General Internal Medicine 11/27/16 documented as of this encounter
--- OUTSIDE RECORDS SUMMARY | 2025-03-09 09:58 | XMS_ITS | Encounter Summary ---
Author Organization [facility] Address [address] [place] [address] Care Team Providers Care Anchorman Name Role Phone Quinn Herndon MD Primary Care Provider [phone] April Vizcaino MD Primary Care Provider Unavailabl e Encounter Details Date Type Department Care Team Description 10/05/2014 Redrying Machine Operator Report Medical Records [address] [place] [address] Milind Olmstead Social History Tobacco Use Types Packs/Day Years [...] on filedocumented in this encounter Care Teams Anchorman Relationship Specialty Start Date End Date Quinn Herndon MD [address] [place] [address] PCP - General Internal Medicine 08/25/13 11/26/16 April Vizcaino MD [address] [place] [address] PCP - General Internal Medicine 11/27/16 documented as of this encounter
--- OUTSIDE RECORDS SUMMARY | 2025-03-09 09:58 | XMS_ITS | Encounter Summary ---
Author Organization [employer] [facility] Address [address] [place] [address] Care Team Providers Care Splitter Machine Name Role Phone Quinn Herndon MD Primary Care Provider [phone] April Vizcaino MD Primary Care Provider Unavailabl e Encounter Details Date Type Department Care Team Description 01/07/2015 Night Triage Doc Medical Records [address] [place] [address] Abstract, Provider Social History Tobacco Use Types [...] on filedocumented in this encounter Care Teams Splitter Machine Relationship Specialty Start Date End Date Quinn Herndon MD [address] [place] [phone] PCP - General Internal Medicine 08/25/13 11/26/16 April Vizcaino MD [address] [place] [address] PCP - General Internal Medicine 11/27/16 documented as of this encounter
--- OUTSIDE RECORDS SUMMARY | 2025-03-09 09:58 | XMS_ITS | Encounter Summary ---
Author Organization [facility] [facility] Address [address] [place] [address] Care Team Providers Care Wood Getter Name Role Phone Quinn Herndon MD Primary Care Provider [phone] April Vizcaino MD Primary Care Provider Unavailabl e Encounter Details Date Type Department Care Team Description 05/16/2016 Release of Information Medical Records [address] [place] [address] Abstract, Provider Social History Tobacco Use Types Packs/Day Years Used Date Smoking Tobacco: Former Cigarettes 0.3 Q uit: 09/06/2015 Smokeless Tobacco: Never Comments:Started @ age 18 Alcohol Use Standard Drinks/Week Comments No 0 (1 standard drink = 0.6 oz pur e alcohol) Sex Assigned at Date Recorded Not on file documented as of this encounter Nursing Notes * 05/16/2016 12:00 PM EDT >> RUBA RODRIGUEZ SatMay 16, 2016 10:12 AM RECORDS COPIED TO THE PATIENT FOR PERSONAL USE. documented in this encounter Plan of Treatment Not on file documented as of this encounter Visit Diagnoses Not on filedocumented in this encounter Care Teams Wood Getter Relationship Specialty Start Date End Date Quinn Herndon MD [address] [place] [address] PCP - General Internal Medicine 08/25/13 11/26/16 April Vizcaino MD [address] [place] [address] PCP - General Internal Medicine 11/27/16 documented as of this encounter
--- OUTSIDE RECORDS SUMMARY | 2025-03-09 09:58 | XMS_ITS | Encounter Summary ---
Author Organization [facility] Address [address] [place] [address] Care Team Providers Care Hop Strainer Name Role Phone Quinn Herndon MD Primary Care Provider [phone] April Vizcaino MD Primary Care Provider Unavailabl e Encounter Details Date Type Department Care Team Description 11/16/2016 Night Triage Doc Medical Records [address] [place] [address] Abstract, Provider Social History Tobacco Use Types [...] on filedocumented in this encounter Care Teams Hop Strainer Relationship Specialty Start Date End Date Quinn Herndon MD [address] [place] [phone] PCP - General Internal Medicine 08/25/13 11/26/16 April Vizcaino MD [address] [place] [address] PCP - General Internal Medicine 11/27/16 documented as of this encounter
--- OUTSIDE RECORDS SUMMARY | 2025-03-09 09:58 | XMS_ITS | Encounter Summary ---
Author Organization [facility] Address [address] [place] [address] Care Team Providers Care Circuits Engineer Name Role Phone Quinn [place] MD Primary Care Provider [phone] April Vizcaino MD Primary Care Provider Unavailabl e Encounter Details Date Type Department Care Team Description 11/01/2016 Orders Only General Surgery [address] [place] [address] [id number] Otf Chatterjee MD [address] [place] [address] [phone] Social History Tobacco Use Types Packs/Day Years [...] on filedocumented in this encounter Care Teams Circuits Engineer Relationship Specialty Start Date End Date Quinn [place] MD [address] [place] [address] [phone] PCP - General Internal Medicine 08/25/13 11/26/16 April Vizcaino MD [address] [place] [address] [id number] PCP - General Internal Medicine 11/27/16 documented as of this encounter
--- OUTSIDE RECORDS SUMMARY | 2025-03-09 09:58 | XMS_ITS | Encounter Summary ---
Author Organization [facility] Address [address] [place] [address] Care Team Providers Care Laborer Pipeline Name Role Phone Quinn [place] MD Primary Care Provider [phone] April Vizcaino MD Primary Care Provider Unavailabl e Encounter Details Date Type Department Care Team Description 02/10/2016 Night Triage Doc Medical Records [address] [place] [id number] Abstract, Provider Social History Tobacco Use Types [...] on filedocumented in this encounter Care Teams Laborer Pipeline Relationship Specialty Start Date End Date Quinn [place] MD [address] [place], [place] [phone] PCP - General Internal Medicine 08/25/13 11/26/16 April Vizcaino MD [address] [place] [id number] PCP - General Internal Medicine 11/27/16 documented as of this encounter
== END 2025-03-09 09:47 | disposition home or self-care (01) ==
LOC: HO.HMCH 09:15
PROVIDERS: PCP Internal Medicine; Visit Provider Internal Medicine
DX: J44.89 Other specified chronic obstructive pulmonary disease (principal); I70.0 Atherosclerosis of aorta; F33.2 Major depressive disorder, recurrent severe without psychotic features; E66.3 Overweight; E78.00 Pure hypercholesterolemia, unspecified; K21.9 Gastro-esophageal reflux disease without esophagitis; R73.9 Hyperglycemia, unspecified; R09.81 Nasal congestion

== ENCOUNTER → 2025-03-09 09:14 | Outpatient (BNVA) | payer OTHER, SELFPAY | PROVIDERS: PCP Internal Medicine; Visit Provider Internal Medicine | DX: J44.89 Other specified chronic obstructive pulmonary disease (principal); I70.0 Atherosclerosis of aorta; E66.3 Overweight; E78.00 Pure hypercholesterolemia, unspecified; K21.9 Gastro-esophageal reflux disease without esophagitis; F33.2 Major depressive disorder, recurrent severe without psychotic features; R73.9 Hyperglycemia, unspecified; R09.81 Nasal congestion; J02.9 Acute pharyngitis, unspecified; G43.909 Migraine, unspecified, not intractable, without status migrainosus; M79.7 Fibromyalgia; Z91.09 Other allergy status, other than to drugs and biological substances; Z87.891 Personal history of nicotine dependence; Z68.28 Body mass index [BMI] 28.0-28.9, adult; Z79.899 Other long term (current) drug therapy | CPT/HCPCS: 99212 ==

== ENCOUNTER → 2025-03-17 09:00 | Outpatient (BNV) | payer OTHER, SELFPAY | PROVIDERS: Visit Provider Clinical Nurse Specialist Psychiatric/Mental Health | DX: F33.2 Major depressive disorder, recurrent severe without psychotic features (principal) | CPT/HCPCS: 90868 ==

== ENCOUNTER 2025-03-19 09:00 | Outpatient (RCR) | payer OTHER, SELFPAY ==
--- NOTE | 2024-12-17 14:03 | W.PM.TMSCONS ---
History of Present Illness General Data Date of Service: 12/17/24 Reason for consult: TMS History of Present Illness Patient also has a significantly elevated The patient is seen in psychiatric evaluation referred for TMS. The patient is a 54-year-old female with a significantly elevated PHQ-9 has a history of depression and history of excellent response to TMS 2 years ago. The patient in psychiatric follow-up by Dr. Cat the patient describes being increasingly depressed over the past 6+ months. She has most recently been on clonazepam 1 mg 3 times a day Lunesta 3 mg at bedtime amitriptyline 20 mg at bedtime. Trazodone 50 mg at bedtime. The patient has been diagnosed with major depression recurrent severe panic disorder with agoraphobia social anxiety disorder the patient has been under stress from chronic medical problems The patient did very successful TMS which lasted over 2 years and effectiveness made a marked difference in her life. She has felt low motivation energy difficulty in functioning PHQ-9 over 20 GED elevated rate significant impairment in functioning and quality of life Past Psychiatric History/Medication Trials: Patient has been in treatment since age 25 did have a past psychiatric hospitalization when she was younger no history of suicide attempts History of excellent response to TMS approximately 2 and half years ago. Response lasted about 2 years. The patient has been on Pristiq allergic reaction hives Wellbutrin had vomiting no response from Lexapro Paxil were sertraline vilazodone she experienced hives. Effexor along with buspirone Depakote oxcarbazepine or all effective PMFSH Medical History (Updated 12/22/24 @ 16:18 by Tres Evangelista MD) Major depressive disorder, recurrent severe without psychotic features Seizure disorder Ingrown left greater toenail Vitamin D deficiency Asthma Allergies Bronchitis Acute bronchitis Left leg numbness Chronic restrictive lung disease Asthma-COPD overlap syndrome Chronic allergic rhinitis Palpitation SARS-CoV-2 positive Generalized anxiety disorder Allergy to vaccine Low back pain Gallbladder polyp Closed left clavicular fracture History of miscarriage Temporal lobe epilepsy Hypercholesterolemia Fibromyalgia Migraine Bile salt-induced diarrhea Insomnia GERD (gastroesophageal reflux disease) Surgical History History of cholecystectomy Family History: There is a family history of depression Social History: Patient currently has a PC who is her daughter and she lives with her daughter 3-4 days a week and 3 days at her own apartment. Also has grandchildren that she is quite close to. Patient is an only child she was raised mostly by her mother who was an alcoholic she was in foster homes growing up Substance History: Patient denies Meds/Allergies Meds Home Medications ?Medication ?Instructions ?Recorded ?Confirmed ?Type ascorbate calcium (vitamin C) 500 1 g PO Q6H 10/21/20 08/24/24 History mg tablet cholecalciferol (vitamin D3) 25 25 mcg PO DAILY 10/21/20 08/24/24 History mcg (1,000 unit) capsule zinc 50 mg tablet 50 mg PO DAILY 10/21/20 08/24/24 History ferrous sulfate 325 mg (65 mg 325 mg PO DAILY 07/25/21 08/24/24 History iron) tablet (Feosol) GROWTH STRENGTH RECOVERY 05/20/23 08/24/24 History magnesium oxide 400 mg PO DAILY 01/08/24 08/24/24 History diclofenac sodium 1 % topical gel topical PRN 08/11/24 08/24/24 History ipratropium bromide 21 mcg (0.03 intranasal PRN 08/11/24 08/24/24 History %) nasal spray metoclopramide HCl 5 mg tablet mg PO 08/11/24 08/24/24 History Allergies Allergies Allergy/AdvReac Type Severity Reaction Status Date / Time Clindamycin HCl Allergy Unknown esophagus, Verified 12/18/24 16:29 trouble swallowing gabapentin Allergy Unknown Unknown Verified 12/18/24 16:29 ibuprofen Allergy Unknown nausea Verified 12/18/24 16:29 metoclopramide [Reglan] Allergy Unknown jittery Verified 12/18/24 16:29 NSAIDS (Non-Steroidal Allergy Unknown STOMACH Verified 12/18/24 16:29 Anti-Inflamma UPSET [NSAIDS (NON-STEROIDAL ANTI-INFLAMMA] oxycodone [OXYCODONE] Allergy Unknown palpitations, Verified 12/18/24 16:29 hyper pseudoephedrine [Sudafed] Allergy Unknown Unknown Verified 12/18/24 16:29 tramadol [TRAMADOL] Allergy Unknown palpitations, Verified 12/18/24 16:29 hyper vilazodone [Viibryd] Allergy Unknown dry mouth Verified 12/18/24 16:29 and tremors zolpidem [Ambien] Allergy Unknown Unknown Verified 12/18/24 16:29 bupropion [BUPROPION] AdvReac Intermediate HTN, Verified 12/18/24 16:29 BLURRY VISION quetiapine [From Seroquel] AdvReac Intermediate patient Verified 12/18/24 16:29 states levofloxacin AdvReac Unknown weakness, Verified 12/18/24 16:29 nausea/vomiting Mental Status Exam Mental Status Exam Patient Appearance: Well Grooomed Patient Orientation: Person, Place, Time and Situation Level of Consciousness: Awake and Appropriate Mood Description: Depressed and Blunted Affect Description: Appropriate and Constricted Patient Cognition Impaired: No Ability to Follow Directions: Good Speech Pattern: Clear Memory Description: Intact Hallucinations: None Delusions: Not Present Thought Process: Intact and Goal Oriented Thought Content: positive for Goal Oriented, positive for Preoccupation, negative for Suicidal Ideation or negative for Homicidal Ideation Depressive Symptoms: Increased Anxiety, Increased Irritability, Hopelessness, Increased Fatigue, Loss of Energy and Difficulty Concentrating Judgement: Good Assessment & Plan Assessment & Plan (1) Major depressive disorder, recurrent severe without psychotic features: Status: Acute Code(s): F33.2 - Major depressive disorder, recurrent severe without psychotic features (2) Generalized anxiety disorder: Status: Acute Code(s): F41.1 - Generalized anxiety disorder Plan The patient reports increasing depressive symptoms not responding to medication treatment. She meets criteria for TMS has had ongoing psychotherapy and also an excellent response to TMS approximately 2 years ago. Patient did not suffer any adverse effects. Has failed multiple antidepressant trials. Denies any history of metallic implants cochlear implants pacemaker surgery above that or neck or other contraindications She is asking that we obtain records from her prior treatment which may have been done with a different magnet Total time managing care of this patient today ____ minutes. Patient educated on: TMS Informed Consent: understands
--- NOTE | 2025-01-22 09:36 | P.PNPS_ITS ---
TMS Daily Progress Note Daily TMS Progress Note Date of Service: 01/21/25 Week #: 1 Treatment #(12-17): 1 PHQ-9 Pre-Treatment (12-14): 27 PHQ-9 Most Recent (12-14): 24 Reviewed: TMS Mapping/Re-mapping completed Verification: I have reviewed the TMS Hadoop Engineer Note and agree with the contents. The patient remains a candidate to continue TMS treatment per protocol. Assessment and Plan (1) Major depressive disorder, recurrent severe without psychotic features: Status: Acute Plan Initial mapping was completed patient was able to give informed consent. Extensive records reviewed from prior TMS treatment in case reviewed with Dr. Butler who had done her prior treatment. Patient did tolerate ECT previously does tend to some unusual somatic symptoms at times past head CT was negative Patient tolerated 1st treatment
--- NOTE | 2025-02-12 17:33 | HO.TMSDAILY2 ---
TMS Daily Progress Note Daily TMS Progress Note Date of Service: 01/25/25 Week #: 1 Treatment #(12-17): 2 PHQ-9 Pre-Treatment (12-14): 27 PHQ-9 Most Recent (12-14): 24 Reviewed: TMS Tech Note Reviewed Verification: I have reviewed the TMS Digital Strategy Director Note and agree with the contents. The patient remains a candidate to continue TMS treatment per protocol. Assessment and Plan (1) Major depressive disorder, recurrent severe without psychotic features: Status: Acute Plan pt with sinus inf somewhat under the weather confirned prior tx had been L tms
--- NOTE | 2025-03-16 20:02 | HO.TMSDAILY2 ---
TMS Daily Progress Note Daily TMS Progress Note Date of Service: 01/26/25 Week #: 1 Treatment #(12-17): 3 PHQ-9 Pre-Treatment (12-14): 27 PHQ-9 Most Recent (12-14): 24 Reviewed: TMS Tech Note Reviewed Verification: I have reviewed the TMS Pharmacovigilance Specialist Note and agree with the contents. The patient remains a candidate to continue TMS treatment per protocol. Assessment and Plan (1) Major depressive disorder, recurrent severe without psychotic features: Status: Acute Plan pt gradual increase in TMS percentage patient is under lot of stress may be needing to leave her long-term living
--- NOTE | 2025-03-16 20:02 | HO.TMSDAILY2 ---
TMS Daily Progress Note Daily TMS Progress Note Date of Service: 01/27/25 Week #: 1 Treatment #(12-17): 4 PHQ-9 Pre-Treatment (12-14): 27 PHQ-9 Most Recent (12-14): 24 Reviewed: TMS Tech Note Reviewed Verification: I have reviewed the TMS Lumber Bearer Note and agree with the contents. The patient remains a candidate to continue TMS treatment per protocol. Assessment and Plan (1) Major depressive disorder, recurrent severe without psychotic features: Status: Acute Plan pt gradual increase in TMS percentage held at 75 % today cont plan of care
--- NOTE | 2025-03-16 20:03 | P.PNPS_ITS ---
TMS Daily Progress Note Daily TMS Progress Note Date of Service: 02/03/25 Week #: 2 Treatment #(12-17): 9 PHQ-9 Pre-Treatment (12-14): 27 PHQ-9 Most Recent (12-14): 18 Reviewed: TMS Tech Note Reviewed Verification: I have reviewed the TMS Jig Boring Machine Operator For Metal Note and agree with the contents. The patient remains a candidate to continue TMS treatment per protocol. Assessment and Plan (1) Major depressive disorder, recurrent severe without psychotic features: Status: Acute Plan Continue plan of care tolerating treatment
--- NOTE | 2025-03-16 20:03 | P.PNPS_ITS ---
TMS Daily Progress Note Daily TMS Progress Note Date of Service: 02/01/25 Week #: 2 Treatment #(12-17): 7 PHQ-9 Pre-Treatment (12-14): 27 PHQ-9 Most Recent (12-14): 24 Reviewed: TMS Tech Note Reviewed Verification: I have reviewed the TMS Configuration Specialist Note and agree with the contents. The patient remains a candidate to continue TMS treatment per protocol. Assessment and Plan (1) Major depressive disorder, recurrent severe without psychotic features: Status: Acute Plan Patient seen in psychiatric follow-up tolerating treatment continue plan of care
--- NOTE | 2025-03-16 20:03 | HO.TMSDAILY2 ---
TMS Daily Progress Note Daily TMS Progress Note Date of Service: 01/28/25 Week #: 1 Treatment #(12-17): 5 PHQ-9 Pre-Treatment (12-14): 27 PHQ-9 Most Recent (12-14): 24 Reviewed: TMS Tech Note Reviewed Verification: I have reviewed the TMS Broadcast Field Supervisor Note and agree with the contents. The patient remains a candidate to continue TMS treatment per protocol. Assessment and Plan (1) Major depressive disorder, recurrent severe without psychotic features: Status: Acute Plan cont plan of care patient does have local pain will take Motrin having some difficulty increasing MT percentage
--- NOTE | 2025-03-16 20:03 | HO.TMSDAILY2 ---
TMS Daily Progress Note Daily TMS Progress Note Date of Service: 01/29/25 Week #: 2 Treatment #(12-17): 6 PHQ-9 Pre-Treatment (12-14): 27 PHQ-9 Most Recent (12-14): 24 Reviewed: TMS Tech Note Reviewed Verification: I have reviewed the TMS Enterprise Systems Administrator Note and agree with the contents. The patient remains a candidate to continue TMS treatment per protocol. Assessment and Plan (1) Major depressive disorder, recurrent severe without psychotic features: Status: Acute Plan mt inc to 80 percent tolerating tx continue plan of care
--- NOTE | 2025-03-16 20:03 | HO.TMSDAILY2 ---
TMS Daily Progress Note Daily TMS Progress Note Date of Service: 02/02/25 Week #: 2 Treatment #(12-17): 8 PHQ-9 Pre-Treatment (12-14): 27 PHQ-9 Most Recent (12-14): 24 Reviewed: TMS Tech Note Reviewed Verification: I have reviewed the TMS Outdoor Power Equipment Mechanic Note and agree with the contents. The patient remains a candidate to continue TMS treatment per protocol. Assessment and Plan (1) Major depressive disorder, recurrent severe without psychotic features: Status: Acute Plan Patient tolerating treatment worried about her living situation tolerating treatment
--- NOTE | 2025-03-16 20:25 | P.PNPS_ITS ---
TMS Daily Progress Note Daily TMS Progress Note Date of Service: 02/05/25 Week #: 2 Treatment #(12-17): 11 PHQ-9 Pre-Treatment (12-14): 27 PHQ-9 Most Recent (12-14): 18 Reviewed: TMS Tech Note Reviewed Verification: I have reviewed the TMS Credentialing Manager Note and agree with the contents. The patient remains a candidate to continue TMS treatment per protocol. Assessment and Plan (1) Major depressive disorder, recurrent severe without psychotic features: Status: Acute Plan Patient tolerating treatment reports some improvement
--- NOTE | 2025-03-16 20:25 | HO.TMSDAILY2 ---
TMS Daily Progress Note Daily TMS Progress Note Date of Service: 02/04/25 Week #: 2 Treatment #(12-17): 10 PHQ-9 Pre-Treatment (12-14): 27 PHQ-9 Most Recent (12-14): 24 Reviewed: TMS Tech Note Reviewed Verification: I have reviewed the TMS Typewriter Ribbon Winder Note and agree with the contents. The patient remains a candidate to continue TMS treatment per protocol. Assessment and Plan (1) Major depressive disorder, recurrent severe without psychotic features: Status: Acute Plan Continue plan of care tolerating treatment
--- NOTE | 2025-03-16 20:25 | HO.TMSDAILY2 ---
TMS Daily Progress Note Daily TMS Progress Note Date of Service: 02/08/25 Week #: 2 Treatment #(12-17): 12 PHQ-9 Pre-Treatment (12-14): 27 PHQ-9 Most Recent (12-14): 10 Reviewed: TMS Tech Note Reviewed Verification: I have reviewed the TMS Upstream Biomanufacturing Technician Note and agree with the contents. The patient remains a candidate to continue TMS treatment per protocol. Assessment and Plan (1) Major depressive disorder, recurrent severe without psychotic features: Status: Acute Plan Continue plan of care improvements noted worries regarding need for potential move
--- NOTE | 2025-03-16 20:25 | HO.TMSDAILY2 ---
TMS Daily Progress Note Daily TMS Progress Note Date of Service: 02/09/25 Week #: 2 Treatment #(12-17): 13 PHQ-9 Pre-Treatment (12-14): 27 PHQ-9 Most Recent (12-14): 10 Reviewed: TMS Tech Note Reviewed Verification: I have reviewed the TMS Bellhop Captain Note and agree with the contents. The patient remains a candidate to continue TMS treatment per protocol. Assessment and Plan (1) Major depressive disorder, recurrent severe without psychotic features: Status: Acute Plan Continue plan of care improvement noted
--- NOTE | 2025-03-16 20:25 | HO.TMSDAILY2 ---
TMS Daily Progress Note Daily TMS Progress Note Date of Service: 02/11/25 Week #: 3 Treatment #(12-17): 14 PHQ-9 Pre-Treatment (12-14): 27 PHQ-9 Most Recent (12-14): 10 Reviewed: TMS Tech Note Reviewed Verification: I have reviewed the TMS Lime Kiln Worker Note and agree with the contents. The patient remains a candidate to continue TMS treatment per protocol. Assessment and Plan (1) Major depressive disorder, recurrent severe without psychotic features: Status: Acute Plan Continue plan of care improvement noted
--- NOTE | 2025-03-16 20:25 | HO.TMSDAILY2 ---
TMS Daily Progress Note Daily TMS Progress Note Date of Service: 02/12/25 Week #: 3 Treatment #(12-17): 15 PHQ-9 Pre-Treatment (12-14): 27 PHQ-9 Most Recent (12-14): 10 Reviewed: TMS Tech Note Reviewed Verification: I have reviewed the TMS Dock Manager Note and agree with the contents. The patient remains a candidate to continue TMS treatment per protocol. Assessment and Plan (1) Major depressive disorder, recurrent severe without psychotic features: Status: Acute Plan Continue plan of care improvement noted slow inc MT %
--- NOTE | 2025-03-16 20:25 | HO.TMSDAILY2 ---
TMS Daily Progress Note Daily TMS Progress Note Date of Service: 02/15/25 Week #: 4 Treatment #(12-17): 16 PHQ-9 Pre-Treatment (12-14): 27 PHQ-9 Most Recent (12-14): 8 Reviewed: TMS Tech Note Reviewed Verification: I have reviewed the TMS Dental Patient Coordinator Note and agree with the contents. The patient remains a candidate to continue TMS treatment per protocol. Assessment and Plan (1) Major depressive disorder, recurrent severe without psychotic features: Status: Acute Plan Continue plan of care improvement noted slow inc MT %
--- NOTE | 2025-03-16 20:39 | P.PNPS_ITS ---
TMS Daily Progress Note Daily TMS Progress Note Date of Service: 02/16/25 Week #: 4 Treatment #(12-17): 17 PHQ-9 Pre-Treatment (12-14): 27 PHQ-9 Most Recent (12-14): 10 Reviewed: TMS Tech Note Reviewed Verification: I have reviewed the TMS Medical Physics Professor Note and agree with the contents. The patient remains a candidate to continue TMS treatment per protocol. Assessment and Plan (1) Major depressive disorder, recurrent severe without psychotic features: Status: Acute Plan Continue plan of care treatment tolerated improvement noted
--- NOTE | 2025-03-16 20:39 | HO.TMSDAILY2 ---
TMS Daily Progress Note Daily TMS Progress Note Date of Service: 02/17/25 Week #: 4 Treatment #(12-17): 18 PHQ-9 Pre-Treatment (12-14): 27 PHQ-9 Most Recent (12-14): 8 Reviewed: TMS Tech Note Reviewed Verification: I have reviewed the TMS Computer Help Desk Representative Note and agree with the contents. The patient remains a candidate to continue TMS treatment per protocol. Assessment and Plan (1) Major depressive disorder, recurrent severe without psychotic features: Status: Acute Plan Continue plan of care treatment tolerated improvement noted
--- NOTE | 2025-03-16 20:39 | HO.TMSDAILY2 ---
TMS Daily Progress Note Daily TMS Progress Note Date of Service: 02/18/25 Week #: 4 Treatment #(12-17): 19 PHQ-9 Pre-Treatment (12-14): 27 PHQ-9 Most Recent (12-14): 8 Reviewed: TMS Tech Note Reviewed Verification: I have reviewed the TMS Property Damage Claims Adjustor Note and agree with the contents. The patient remains a candidate to continue TMS treatment per protocol. Assessment and Plan (1) Major depressive disorder, recurrent severe without psychotic features: Status: Acute Plan Continue plan of care treatment tolerated improvement noted
--- NOTE | 2025-03-16 20:39 | HO.TMSDAILY2 ---
TMS Daily Progress Note Daily TMS Progress Note Date of Service: 02/22/25 Week #: 5 Treatment #(12-17): 21 PHQ-9 Pre-Treatment (12-14): 27 PHQ-9 Most Recent (12-14): 8 Reviewed: TMS Tech Note Reviewed Verification: I have reviewed the TMS Expeller Operator Note and agree with the contents. The patient remains a candidate to continue TMS treatment per protocol. Assessment and Plan (1) Major depressive disorder, recurrent severe without psychotic features: Status: Acute Plan Continue plan of care treatment tolerated improvement noted
--- NOTE | 2025-03-16 20:40 | HO.TMSDAILY2 ---
TMS Daily Progress Note Daily TMS Progress Note Date of Service: 02/23/25 Week #: 5 Treatment #(12-17): 22 PHQ-9 Pre-Treatment (12-14): 27 PHQ-9 Most Recent (12-14): 8 Reviewed: TMS Tech Note Reviewed Verification: I have reviewed the TMS Skiver Uppers Or Linings Note and agree with the contents. The patient remains a candidate to continue TMS treatment per protocol. Assessment and Plan (1) Major depressive disorder, recurrent severe without psychotic features: Status: Acute Plan Continue plan of care treatment tolerated improvement noted
--- NOTE | 2025-03-16 20:50 | HO.TMSDAILY2 ---
TMS Daily Progress Note Daily TMS Progress Note Date of Service: 02/24/25 Week #: 5 Treatment #(12-17): 22 PHQ-9 Pre-Treatment (12-14): 27 PHQ-9 Most Recent (12-14): 8 Reviewed: TMS Tech Note Reviewed Verification: I have reviewed the TMS Test Fixture Designer Note and agree with the contents. The patient remains a candidate to continue TMS treatment per protocol. Assessment and Plan (1) Major depressive disorder, recurrent severe without psychotic features: Status: Acute Plan Continue plan of care treatment tolerated improvement noted
--- NOTE | 2025-03-16 20:50 | HO.TMSDAILY2 ---
TMS Daily Progress Note Daily TMS Progress Note Date of Service: 02/25/25 Week #: 5 Treatment #(12-17): 24 PHQ-9 Pre-Treatment (12-14): 27 PHQ-9 Most Recent (12-14): 8 Reviewed: TMS Tech Note Reviewed Verification: I have reviewed the TMS Automation Engineering Technician Note and agree with the contents. The patient remains a candidate to continue TMS treatment per protocol. Assessment and Plan (1) Major depressive disorder, recurrent severe without psychotic features: Status: Acute Plan Continue plan of care treatment tolerated improvement noted
--- NOTE | 2025-03-16 20:51 | HO.TMSDAILY2 ---
TMS Daily Progress Note Daily TMS Progress Note Date of Service: 02/26/25 Week #: 5 Treatment #(12-17): 25 PHQ-9 Pre-Treatment (12-14): 27 PHQ-9 Most Recent (12-14): 8 Reviewed: TMS Tech Note Reviewed Verification: I have reviewed the TMS Tone Artist Apprentice Note and agree with the contents. The patient remains a candidate to continue TMS treatment per protocol. Assessment and Plan (1) Major depressive disorder, recurrent severe without psychotic features: Status: Acute Plan Continue plan of care treatment tolerated improvement noted
--- NOTE | 2025-03-16 20:51 | HO.TMSDAILY2 ---
TMS Daily Progress Note Daily TMS Progress Note Date of Service: 03/01/25 Week #: 6 Treatment #(12-17): 26 PHQ-9 Pre-Treatment (12-14): 27 PHQ-9 Most Recent (12-14): 8 Reviewed: TMS Tech Note Reviewed Verification: I have reviewed the TMS School Coordinator Note and agree with the contents. The patient remains a candidate to continue TMS treatment per protocol. Assessment and Plan (1) Major depressive disorder, recurrent severe without psychotic features: Status: Acute Plan Continue plan of care treatment tolerated improvement noted
--- NOTE | 2025-03-16 20:51 | HO.TMSDAILY2 ---
TMS Daily Progress Note Daily TMS Progress Note Date of Service: 03/02/25 Week #: 6 Treatment #(12-17): 27 PHQ-9 Pre-Treatment (12-14): 27 PHQ-9 Most Recent (12-14): 8 Reviewed: TMS Tech Note Reviewed Verification: I have reviewed the TMS Export Manager Note and agree with the contents. The patient remains a candidate to continue TMS treatment per protocol. Assessment and Plan (1) Major depressive disorder, recurrent severe without psychotic features: Status: Acute Plan Continue plan of care treatment tolerated improvement noted
--- NOTE | 2025-03-16 20:51 | HO.TMSDAILY2 ---
TMS Daily Progress Note Daily TMS Progress Note Date of Service: 03/03/25 Week #: 6 Treatment #(12-17): 28 PHQ-9 Pre-Treatment (12-14): 27 PHQ-9 Most Recent (12-14): 8 Reviewed: TMS Tech Note Reviewed Verification: I have reviewed the TMS Sales Merchandise Associate Note and agree with the contents. The patient remains a candidate to continue TMS treatment per protocol. Assessment and Plan (1) Major depressive disorder, recurrent severe without psychotic features: Status: Acute Plan Continue plan of care treatment tolerated improvement noted
--- NOTE | 2025-03-16 20:59 | P.PNPS_ITS ---
TMS Daily Progress Note Daily TMS Progress Note Date of Service: 03/05/25 Week #: 6 Treatment #(12-17): 30 PHQ-9 Pre-Treatment (12-14): 27 PHQ-9 Most Recent (12-14): 8 Reviewed: TMS Tech Note Reviewed Verification: I have reviewed the TMS Keno Clerk Note and agree with the contents. The patient remains a candidate to continue TMS treatment per protocol. Assessment and Plan (1) Major depressive disorder, recurrent severe without psychotic features: Status: Acute Plan Continue plan of care treatment tolerated improvement noted
--- NOTE | 2025-03-16 20:59 | P.PNPS_ITS ---
TMS Daily Progress Note Daily TMS Progress Note Date of Service: 03/09/25 Week #: 7 Treatment #(12-17): 31 PHQ-9 Pre-Treatment (12-14): 27 PHQ-9 Most Recent (12-14): 8 Reviewed: TMS Tech Note Reviewed Verification: I have reviewed the TMS Hearing Screen Coordinator Note and agree with the contents. The patient remains a candidate to continue TMS treatment per protocol. Assessment and Plan (1) Major depressive disorder, recurrent severe without psychotic features: Status: Acute Plan Continue plan of care treatment tolerated improvement noted
--- NOTE | 2025-03-16 20:59 | P.PNPS_ITS ---
TMS Daily Progress Note Daily TMS Progress Note Date of Service: 03/04/25 Week #: 6 Treatment #(12-17): 27 PHQ-9 Pre-Treatment (12-14): 27 PHQ-9 Most Recent (12-14): 8 Reviewed: TMS Tech Note Reviewed Verification: I have reviewed the TMS Pest Controller Note and agree with the contents. The patient remains a candidate to continue TMS treatment per protocol. Assessment and Plan (1) Major depressive disorder, recurrent severe without psychotic features: Status: Acute Plan Continue plan of care treatment tolerated improvement noted
--- NOTE | 2025-03-16 20:59 | P.PNPS_ITS ---
TMS Daily Progress Note Daily TMS Progress Note Date of Service: 03/09/25 Week #: 7 Treatment #(12-17): 32 PHQ-9 Pre-Treatment (12-14): 27 PHQ-9 Most Recent (12-14): 0 Reviewed: TMS Tech Note Reviewed Verification: I have reviewed the TMS Phlebotomy Support Tech Note and agree with the contents. The patient remains a candidate to continue TMS treatment per protocol. Assessment and Plan (1) Major depressive disorder, recurrent severe without psychotic features: Status: Acute Plan Continue plan of care treatment tolerated improvement noted
--- NOTE | 2025-03-16 21:04 | P.PNPS_ITS ---
TMS Daily Progress Note Daily TMS Progress Note Date of Service: 03/15/25 Week #: 8 Treatment #(12-17): 34 PHQ-9 Pre-Treatment (12-14): 27 PHQ-9 Most Recent (12-14): 8 Reviewed: TMS Tech Note Reviewed Verification: I have reviewed the TMS Project Manager/Design Manager Note and agree with the contents. The patient remains a candidate to continue TMS treatment per protocol. Assessment and Plan (1) Major depressive disorder, recurrent severe without psychotic features: Status: Acute Plan Continue plan of care treatment tolerated marked improvement noted
--- NOTE | 2025-03-16 21:04 | P.PNPS_ITS ---
TMS Daily Progress Note Daily TMS Progress Note Date of Service: 03/12/25 Week #: 7 Treatment #(12-17): 33 PHQ-9 Pre-Treatment (12-14): 27 PHQ-9 Most Recent (12-14): 8 Reviewed: TMS Tech Note Reviewed Verification: I have reviewed the TMS Budget Coordinator Note and agree with the contents. The patient remains a candidate to continue TMS treatment per protocol. Assessment and Plan (1) Major depressive disorder, recurrent severe without psychotic features: Status: Acute Plan Continue plan of care treatment tolerated marked improvement noted
--- NOTE | 2025-03-16 21:04 | HO.TMSDAILY2 ---
TMS Daily Progress Note Daily TMS Progress Note Date of Service: 03/10/25 Week #: 7 Treatment #(12-17): 32 PHQ-9 Pre-Treatment (12-14): 27 PHQ-9 Most Recent (12-14): 0 Reviewed: TMS Tech Note Reviewed Verification: I have reviewed the TMS Cryptologic Technician Operator/Analyst Note and agree with the contents. The patient remains a candidate to continue TMS treatment per protocol. Assessment and Plan (1) Major depressive disorder, recurrent severe without psychotic features: Status: Acute Plan Continue plan of care treatment tolerated marked improvement noted
--- NOTE | 2025-03-17 09:27 | HO.TMSDAILY2 ---
TMS Daily Progress Note Daily TMS Progress Note Date of Service: 03/17/25 Treatment #(12-17): 34 PHQ-9 Pre-Treatment (12-14): 27 PHQ-9 Most Recent (12-14): 0 Verification: I have reviewed the TMS Forensic Psychologist Note and agree with the contents. The patient remains a candidate to continue TMS treatment per protocol.
--- NOTE | 2025-03-18 12:34 | P.PNPS_ITS ---
TMS Daily Progress Note Daily TMS Progress Note Date of Service: 03/15/25 Week #: 8 Treatment #(-30): 34 PHQ-9 Pre-Treatment (1-27): 27 PHQ-9 Most Recent (-): 0 MONY-7 Pre-Treatment (0-21): 21 MONY-7 Most Recent (0-21): 0 Reviewed: TMS Tech Note Reviewed Verification: I have reviewed the TMS Drain Cleaner Plumber Note and agree with the contents. The patient remains a candidate to continue TMS treatment per protocol. Assessment and Plan (1) Major depressive disorder, recurrent severe without psychotic features: Status: Acute Plan continue current treatmentplan
== END 2025-03-19 15:00 | disposition home or self-care (01) ==
LOC: HO.PTMS 09:00
PROVIDERS: Visit Provider Psychiatry & Neurology Psychiatry
DX: F33.2 Major depressive disorder, recurrent severe without psychotic features (principal); F41.1 Generalized anxiety disorder
CPT/HCPCS: 90867; 90868; 99204

== ENCOUNTER 2025-03-23 09:34 | Outpatient (REF) | payer OTHER, SELFPAY ==
[2025-03-23 11:59] LABS: Blood Urea Nitrogen 14 mg/dL (9-16); Estimated Glomerular Filt Rate > 60; Lipase 26 U/L (8-78)
--- OUTSIDE RECORDS SUMMARY | 2025-03-23 12:41 | XMS_ITS | Encounter Summary ---
Author Organization [facility] Address [address] [place] [address] Care Team Providers Care Rheologist Name Role Phone Quinn Herndon MD Primary Care Provider April Vizcaino MD Primary Care Provider Unavailabl e Encounter Details Date Type Department Care Team Description 11/25/2016 Telephone Adult Medicine [address] [id number] Quinn Herndon MD [address] [place] [address] [phone] Social History Tobacco Use Types Packs/Day Years Used Date Smoking Tobacco: Former Cigarettes 0.3 Q uit: 09/06/2015 Smokeless Tobacco: Former Comments:Started @ age 18 Alcohol Use Standard Drinks/Week Comments No 0 (1 standard drink = 0.6 oz pur e alcohol) Sex Assigned at Date Recorded Not on file documented as of this encounter Miscellaneous Notes * Telephone Encounter - Sanjay Martinez L.P.N. - 11/25/2016 8:10 AM EST Telephone Information: Mobile Not on file. Follow up night triage call Called patient left message for patient to call triage nurse documented in this encounter Plan of Treatment Not on file documented as of this encounter Visit Diagnoses Not on filedocumented in this encounter Care Teams Rheologist Relationship Specialty Start Date End Date Quinn Herndon MD [address] [place] [address] PCP - General Internal Medicine 08/25/13 11/26/16 April Vizcaino MD [address] [place] [address] PCP - General Internal Medicine 11/27/16 documented as of this encounter
--- OUTSIDE RECORDS SUMMARY | 2025-03-23 12:41 | XMS_ITS | Encounter Summary ---
Author Organization [facility] Address [address] [place] [address] Care Team Providers Care Animal Skinner Name Role Phone Quinn Herndon MD Primary Care Provider [phone] April Vizcaino MD Primary Care Provider Unavailabl e Reason for Visit * Reason Onset Date Comments refill request 03/09/2015 Encounter Details Date Type Department Care Team Description 03/09/2015 Refill Adult Medicine [address] [phone] Quinn Herndon MD [address] [place] [address] refill request Social History Tobacco Use Types [...] insurance carrier is: Payor[place] / Plan: MEDICARE-[employer] / Product Type: MEDICARE [id number] documented in this encounter Plan of Treatment Not on file documented as of this encounter Visit Diagnoses Not on filedocumented in this encounter Care Teams Animal Skinner Relationship Specialty Start Date End Date Quinn Herndon MD [address] [place] [address] PCP - General Internal Medicine 08/25/13 11/26/16 April Vizcaino MD [address] [place] [address] PCP - General Internal Medicine 11/27/16 documented as of this encounter
--- OUTSIDE RECORDS SUMMARY | 2025-03-23 12:41 | XMS_ITS | Encounter Summary ---
Author Organization [facility] Address [address] [place] [address] Care Team Providers Care Cut Off Operator Scorer Name Role Phone April Vizcaino MD Primary Care Provider Unavailabl e Encounter Details Date Type Department Care Team Description 12/11/2016 Hospital Medical Records [address] [place] [address] Otf Chatterjee MD [address] [place] [address] Social History Tobacco Use Types Packs/Day Years [...] on filedocumented in this encounter Care Teams Cut Off Operator Scorer Relationship Specialty Start Date End Date April Vizcaino MD PCP - General Internal Medicine 11/27/16 documented as of this encounter
--- OUTSIDE RECORDS SUMMARY | 2025-03-23 12:41 | XMS_ITS | Encounter Summary ---
Author Organization [facility] Address [address] [place] [address] Care Team Providers Care Sales Systems Engineer Name Role Phone Quinn Herndon MD Primary Care Provider [phone] April Vizcaino MD Primary Care Provider Unavailabl e Encounter Details Date Type Department Care Team Description 02/28/2015 Night Triage Doc Medical Records [address] [place] [address] Abstract, Provider Social History Tobacco Use Types [...] on filedocumented in this encounter Care Teams Sales Systems Engineer Relationship Specialty Start Date End Date Quinn Herndon MD [address] [place] [address] [phone] PCP - General Internal Medicine 08/25/13 11/26/16 April Vizcaino MD [address] [place] [address] PCP - General Internal Medicine 11/27/16 documented as of this encounter
--- OUTSIDE RECORDS SUMMARY | 2025-03-23 12:41 | XMS_ITS | Encounter Summary ---
Author Organization [facility] Address [address] [place] [address] Care Team Providers Care Sewage Reticulation Drafting Officer Name Role Phone Quinn Herndon MD Primary Care Provider [phone] April Vizcaino MD Primary Care Provider Unavailabl e Encounter Details Date Type Department Care Team Description 09/16/2013 Night Triage Doc Medical Records [address] [place] [address] Abstract, Provider Social History Tobacco Use Types [...] on filedocumented in this encounter Care Teams Sewage Reticulation Drafting Officer Relationship Specialty Start Date End Date Quinn Herndon MD [address] [place] [address] [phone] PCP - General Internal Medicine 08/25/13 11/26/16 April Vizcaino MD [address] [place] [address] PCP - General Internal Medicine 11/27/16 documented as of this encounter
--- OUTSIDE RECORDS SUMMARY | 2025-03-23 12:41 | XMS_ITS | Encounter Summary ---
Author Organization [facility] Address [address] [place] [address] Care Team Providers Care Ciaio Lumite Injector Name Role Phone Quinn Herndon MD Primary Care Provider [phone] April Vizcaino MD Primary Care Provider Unavailabl e Encounter Details Date Type Department Care Team Description 07/24/2015 Night Triage Doc Medical Records [address] [place] [address] Abstract, Provider Social History Tobacco Use Types [...] on filedocumented in this encounter Care Teams Ciaio Lumite Injector Relationship Specialty Start Date End Date Quinn Herndon MD [address] [place] [address] [phone] PCP - General Internal Medicine 08/25/13 11/26/16 April Vizcaino MD [address] [place] [address] PCP - General Internal Medicine 11/27/16 documented as of this encounter
--- OUTSIDE RECORDS SUMMARY | 2025-03-23 12:41 | XMS_ITS | Encounter Summary ---
Author Organization [facility] Address [address] [place] [address] Care Team Providers Care Inspector Tester Sorter Name Role Phone April Vizcaino MD Primary Care Provider Unavailabl e Reason for Visit * Reason Onset Date Comments Provider Call Back 02/28/2017 Encounter Details Date Type Department Care Team Description 02/28/2017 Telephone Gastroenterology - [address] [address] Joshua Barlow PA-C Provider Call Back Social [...] further evaluation. Until then she can use [id number] Imodium. * Telephone Encounter - Yoko Waters [...] on filedocumented in this encounter Care Teams Inspector Tester Sorter Relationship Specialty Start Date End Date April Vizcaino MD PCP - General Internal Medicine 11/27/16 documented as of this encounter
--- OUTSIDE RECORDS SUMMARY | 2025-03-23 12:41 | XMS_ITS | Clinical Summary ---
Author Organization [facility] Address [address] [place] [address] Care Team Providers Care Revenue Tax Specialist Name Role Phone April Vizcaino MD Primary Care Provider [phone] Social History Tobacco Use Types Packs/Day Years [...] RESULTING AGENCY - 06/18/2018 9:05 AM EDT [id number] THINPREP PAP, IMAGED: ATYPICAL SQUAMOUS CELLS OF [...] Recently Relevant to Health Maintenance Care Teams Revenue Tax Specialist Relationship Specialty Start Date End Date April Vizcaino MD [address] [place] [address] [address] [facility] [address] PCP - General Internal Medicine 11/27/16
--- OUTSIDE RECORDS SUMMARY | 2025-03-23 12:41 | XMS_ITS | Encounter Summary ---
Author Organization [facility] Address [address] [place] [address] Care Team Providers Care Travel Physical Therapist Name Role Phone Quinn Herndon MD Primary Care Provider [phone] April Vizcaino MD Primary Care Provider Unavailabl e Encounter Details Date Type Department Care Team Description 09/10/2013 Transfer Records Medical Records [address] [place] [address] Abstract, Provider Social History Tobacco Use Types [...] on filedocumented in this encounter Care Teams Travel Physical Therapist Relationship Specialty Start Date End Date Quinn Herndon MD [address] [place] [address] [phone] PCP - General Internal Medicine 08/25/13 11/26/16 April Vizcaino MD [address] [place] [address] PCP - General Internal Medicine 11/27/16 documented as of this encounter
--- OUTSIDE RECORDS SUMMARY | 2025-03-23 12:41 | XMS_ITS | Encounter Summary ---
Author Organization [facility] Address [address] [place] [address] Care Team Providers Care Edge Gluer Name Role Phone Quinn Herndon MD Primary Care Provider [phone] April Vizcaino MD Primary Care Provider Unavailabl e Encounter Details Date Type Department Care Team Description 06/09/2015 Night Triage Doc Medical Records [address] [place] [address] Abstract, Provider Social History Tobacco Use Types [...] on filedocumented in this encounter Care Teams Edge Gluer Relationship Specialty Start Date End Date Quinn Herndon MD [address] [place] [address] [phone] PCP - General Internal Medicine 08/25/13 11/26/16 April Vizcaino MD [address] [place] [address] PCP - General Internal Medicine 11/27/16 documented as of this encounter
--- OUTSIDE RECORDS SUMMARY | 2025-03-23 12:42 | XMS_ITS | Encounter Summary ---
Author Organization [facility] Address [address] [place] [address] Care Team Providers Care Bakery Assistant Name Role Phone Quinn Herndon MD Primary Care Provider [phone] April Vizcaino MD Primary Care Provider Unavailabl e Encounter Details Date Type Department Care Team Description 09/28/2014 Release of Information Medical Records [address] [place] [address] Abstract, Provider Social History Tobacco Use Types [...] on filedocumented in this encounter Care Teams Bakery Assistant Relationship Specialty Start Date End Date Quinn Herndon MD [address] [place], [place] [phone] PCP - General Internal Medicine 08/25/13 11/26/16 April Vizcaino MD [address] [place] [address] PCP - General Internal Medicine 11/27/16 documented as of this encounter
--- OUTSIDE RECORDS SUMMARY | 2025-03-23 12:42 | XMS_ITS | Encounter Summary ---
Author Organization [facility] Address [address] [place] [address] Care Team Providers Care Credit Investigator Name Role Phone Quinn Herndon MD Primary Care Provider [phone] April Vizcaino MD Primary Care Provider Unavailabl e Encounter Details Date Type Department Care Team Description 06/18/2014 Night Triage Doc Medical Records [address] [place] [address] Abstract, Provider Social History Tobacco Use Types [...] on filedocumented in this encounter Care Teams Credit Investigator Relationship Specialty Start Date End Date Quinn Herndon MD [address] [place] [address] [phone] PCP - General Internal Medicine 08/25/13 11/26/16 April Vizcaino MD [address] [place] [address] PCP - General Internal Medicine 11/27/16 documented as of this encounter
--- OUTSIDE RECORDS SUMMARY | 2025-03-23 12:42 | XMS_ITS | Encounter Summary ---
Author Organization [facility] Address [address] [place] [address] Care Team Providers Care Spectroscopist Name Role Phone Quinn Herndon MD Primary Care Provider [phone] April Vizcaino MD Primary Care Provider Unavailabl e Encounter Details Date Type Department Care Team Description 01/28/2015 Night Triage Doc Medical Records [address] [place] [address] 14958 Abstract, Provider Social History Tobacco Use Types [...] on filedocumented in this encounter Care Teams Spectroscopist Relationship Specialty Start Date End Date Quinn Herndon MD [address] [place] [address] [phone] PCP - General Internal Medicine 08/25/13 11/26/16 April Vizcaino MD [address] [place] [address] PCP - General Internal Medicine 11/27/16 documented as of this encounter
--- OUTSIDE RECORDS SUMMARY | 2025-03-23 12:42 | XMS_ITS | Encounter Summary ---
Author Organization [facility] [employer] [facility] Address [address] [place] [address] Care Team Providers Care Service Station Operator Name Role Phone Quinn Herndon MD Primary Care Provider [phone] April Vizcaino MD Primary Care Provider Unavailabl e Encounter Details Date Type Department Care Team Description 10/05/2014 Heating And Blending Supervisor Report Medical Records [address] [place] [address] Milind Olmstead Social History Tobacco Use Types [...] on filedocumented in this encounter Care Teams Service Station Operator Relationship Specialty Start Date End Date Quinn Herndon MD [address] [place] [address] PCP - General Internal Medicine 08/25/13 11/26/16 Arpil Vizcaino MD [address] [place] [address] PCP - General Internal Medicine 11/27/16 documented as of this encounter
--- OUTSIDE RECORDS SUMMARY | 2025-03-23 12:42 | XMS_ITS | Encounter Summary ---
Author Organization [facility] Address [address] [place] [address] Care Team Providers Care Diet Technician Registered Name Role Phone Quinn Herndon MD Primary Care Provider [phone] April Vizcaino MD Primary Care Provider Unavailabl e Encounter Details Date Type Department Care Team Description 05/16/2016 Release of Information Medical Records [address] [place] [address] Abstract, Provider Social History Tobacco Use Types [...] on filedocumented in this encounter Care Teams Diet Technician Registered Relationship Specialty Start Date End Date Quinn Herndon MD [address] [place] [address] PCP - General Internal Medicine 08/25/13 11/26/16 April Vizcaino MD [address] [place] [address] PCP - General Internal Medicine 11/27/16 documented as of this encounter
--- OUTSIDE RECORDS SUMMARY | 2025-03-23 12:42 | XMS_ITS | Clinical Summary ---
Author Organization [facility] Address [address] [place] [address] Care Team Providers Care Core Stripper Name Role Phone April Vizcaino MD Primary [...] H RISK PATIENTS (#1) 2037 Care Teams Core Stripper Relationship Specialty Start Date End Date Po, MD April PCP - General Internal Medicine 11/27/16
--- OUTSIDE RECORDS SUMMARY | 2025-03-23 12:42 | XMS_ITS | Encounter Summary ---
Author Organization [facility] Address [address] [place] [address] Care Team Providers Care Games Dealer Name Role Phone Quinn Herndon MD Primary Care Provider [phone] April Vizcaino MD Primary Care Provider Unavailabl e Encounter Details Date Type Department Care Team Description 04/13/2014 Night Triage Doc Medical Records [address] [place] [address] Abstract, Provider Social History Tobacco Use Types [...] on filedocumented in this encounter Care Teams Games Dealer Relationship Specialty Start Date End Date Quinn Herndon MD [address] [place] [address] [phone] PCP - General Internal Medicine 08/25/13 11/26/16 April Vizcaino MD [address] [place] [address] PCP - General Internal Medicine 11/27/16 documented as of this encounter
--- OUTSIDE RECORDS SUMMARY | 2025-03-23 12:42 | XMS_ITS | Encounter Summary ---
Author Organization [facility] [employer] [facility] Address [address] [place] [address] Care Team Providers Care High School Music Instructor Name Role Phone Quinn Herndon MD Primary Care Provider [phone] April Vizcaino MD Primary Care Provider Unavailabl e Encounter Details Date Type Department Care Team Description 03/03/2014 Director Data Management Report Medical Records [address] [place] [address] Nick Bishop Social History Tobacco Use Types [...] on filedocumented in this encounter Care Teams High School Music Instructor Relationship Specialty Start Date End Date Quinn Herndon MD [address] [place], [place] [phone] PCP - General Internal Medicine 08/25/13 11/26/16 April Vizcaino MD [address] [place] [address] PCP - General Internal Medicine 11/27/16 documented as of this encounter
--- OUTSIDE RECORDS SUMMARY | 2025-03-23 12:42 | XMS_ITS | Encounter Summary ---
Author Organization [employer] [facility] Address [address] [place] [address] Care Team Providers Care Recycling Director Name Role Phone Quinn Herndon MD Primary Care Provider [phone] April Vizcaino MD Primary Care Provider Unavailabl e Encounter Details Date Type Department Care Team Description 11/12/2015 Night Triage Doc Medical Records [address] [place] [address]47 Abstract, Provider Social History Tobacco Use Types [...] on filedocumented in this encounter Care Teams Recycling Director Relationship Specialty Start Date End Date Quinn Herndon MD [address] [place], [place] [phone] PCP - General Internal Medicine 08/25/13 11/26/16 April Vizcaino MD [address] [place] [address] PCP - General Internal Medicine 11/27/16 documented as of this encounter
--- OUTSIDE RECORDS SUMMARY | 2025-03-23 12:42 | XMS_ITS | Encounter Summary ---
Author Organization [facility] Address [address] [place] [address] Care Team Providers Care Gate Operator Name Role Phone Quinn Herndon MD Primary Care Provider [phone] April Vizcaino MD Primary Care Provider Unavailabl e Encounter Details Date Type Department Care Team Description 11/06/2016 Hospital Medical Records [address] [place] [address] Brendan Zamora MD [address] [place] [address] [phone] Social History Tobacco Use Types Packs/Day Years [...] on filedocumented in this encounter Care Teams Gate Operator Relationship Specialty Start Date End Date Quinn Herndon MD [address] [place] [address] [phone] PCP - General Internal Medicine 08/25/13 11/26/16 April Vizcaino MD [address] [place] [address] PCP - General Internal Medicine 11/27/16 documented as of this encounter
--- OUTSIDE RECORDS SUMMARY | 2025-03-23 12:42 | XMS_ITS | Encounter Summary ---
Author Organization [facility] Address [address] [place] [address] Care Team Providers Care Hardboard Panel Printer Name Role Phone April Vizcaino MD Primary Care Provider Unavailabl e Reason for Visit * Reason Onset Date Comments Prior Authorization 01/10/2018 Encounter Details Date Type Department Care Team Description 01/10/2018 Telephone Gastroenterology - [address] [address] Colt Fitzpatrick MD Prior Authorization Social History [...] Is this a Cover My Meds request: Rivereno of Medication DEXILANT Dose of Medication 30MG CAP How does patient take this med? TAKE ONE CAPSULE BY MOUTH DAILY What Pharmacy did the fax come from: [facility], [address] [place] [address] Pharmacy fax #: [phone] Third [employer] Party Information from fax: What Prescription Plan does the patient have? BIN/PCN if applicable: Cardholder ID: Person Code: Relationship Code: Help desk phone: documented in this encounter Plan of Treatment Not on file documented as of this encounter Visit Diagnoses Not on filedocumented in this encounter Care Teams Hardboard Panel Printer Relationship Specialty Start Date End Date April Vizcaino MD PCP - General Internal Medicine 11/27/16 documented as of this encounter
--- OUTSIDE RECORDS SUMMARY | 2025-03-23 12:42 | XMS_ITS | Encounter Summary ---
Author Organization [facility] Address [address] [place] [address] Care Team Providers Care Diabetes Education Coordinator Name Role Phone Quinn Herndon MD Primary Care Provider [phone] April Vizcaino MD Primary Care Provider Unavailabl e Reason for Visit * Reason Comments E-prescribe Rx Request Encounter Details Date Type Department Care Team Description 02/23/2014 Refill Adult Medicine [facility] [address] [place] [address] [phone] Quinn Herndon MD [address] [place] [address] E-prescribe Rx Request Social History Tobacco Use [...] Payor[place] Product Type: MEDICARE [id number] documented in this encounter Plan of Treatment Not on file documented as of this encounter Visit Diagnoses Not on filedocumented in this encounter Care Teams Diabetes Education Coordinator Relationship Specialty Start Date End Date Quinn Herndon MD [address] [place] [address] PCP - General Internal Medicine 08/25/13 11/26/16 April Vizcaino MD [address] [place] [address]908 PCP - General Internal Medicine 11/27/16 documented as of this encounter
--- OUTSIDE RECORDS SUMMARY | 2025-03-23 12:42 | XMS_ITS | Encounter Summary ---
Author Organization [facility] Address [address] [place] [address] Care Team Providers Care Annealer Helper Name Role Phone Quinn Herndon MD Primary Care Provider [phone] April Vizcaino MD Primary Care Provider Unavailabl e Reason for Visit * Reason Onset Date Comments Provider Call Back 11/19/2013 Encounter Details Date Type Department Care Team Description 11/19/2013 Telephone Gastroenterology - [address] [address] Joshua Barlow PA-C Provider Call Back Social [...] were released to the patient via a [employer] message and it appears that she reviewed them on 10/23/2013. The patient's gastric emptying study results were reviewed on 10/26/2013 and were negative for gastroparesis. These results were released to the patient via a [employer] message and appears she reviewed them on [...] on filedocumented in this encounter Care Teams Annealer Helper Relationship Specialty Start Date End Date Quinn Herndon MD [address] [place] [address] PCP - General Internal Medicine 08/25/13 11/26/16 April Vizcaino MD [address] [place] [address] PCP - General Internal Medicine 11/27/16 documented as of this encounter
--- OUTSIDE RECORDS SUMMARY | 2025-03-23 12:42 | XMS_ITS | Encounter Summary ---
Author Organization [employer] [facility] Address [address] [place] [address] Care Team Providers Care Computational Linguist Name Role Phone Quinn Herndon MD Primary Care Provider [phone] April Vizcaino MD Primary Care Provider Unavailabl e Encounter Details Date Type Department Care Team Description 12/16/2013 Transfer Records Medical Records [address] [place] [address] Abstract, Provider Social History Tobacco Use Types [...] on filedocumented in this encounter Care Teams Computational Linguist Relationship Specialty Start Date End Date Quinn Herndon MD [address] [place] [address] [phone] PCP - General Internal Medicine 08/25/13 11/26/16 April Vizcaino MD [address] [place] [address] PCP - General Internal Medicine 11/27/16 documented as of this encounter
--- OUTSIDE RECORDS SUMMARY | 2025-03-23 12:42 | XMS_ITS | Encounter Summary ---
Author Organization [facility] Address [address] [place] [address] Care Team Providers Care Manager Delivery Name Role Phone Quinn Herndon MD Primary Care Provider [phone] April Vizcaino MD Primary Care Provider Unavailabl e Encounter Details Date Type Department Care Team Description 02/17/2014 Sequins Winder Report Medical Records [address] [place] [address] Nick Bishop Social History Tobacco Use Types [...] filedocumented in this encounter Care Teams Manager Delivery Relationship Specialty Start Date End Date Quinn Herndon MD [address] [place], [place] [phone] PCP - General Internal Medicine 08/25/13 11/26/16 April Vizcaino MD [address] [place] [address] PCP - General Internal Medicine 11/27/16 documented as of this encounter
--- OUTSIDE RECORDS SUMMARY | 2025-03-23 12:42 | XMS_ITS | Encounter Summary ---
Author Organization [facility] [facility] Address [address] [place] [address] Care Team Providers Care Ferryboat Operator Name Role Phone Quinn Herndon MD Primary Care Provider [phone] April Vizcaino MD Primary Care Provider Unavailabl e Encounter Details Date Type Department Care Team Description 10/06/2014 Account Engineer Report Medical Records [address] [place] [address] Nick Bishop Social History Tobacco Use Types [...] on filedocumented in this encounter Care Teams Ferryboat Operator Relationship Specialty Start Date End Date Quinn Herndon MD [address] [place] [address] PCP - General Internal Medicine 08/25/13 11/26/16 April Vizcaino MD [address] [place] [address] PCP - General Internal Medicine 11/27/16 documented as of this encounter
--- OUTSIDE RECORDS SUMMARY | 2025-03-23 12:42 | XMS_ITS | Encounter Summary ---
Author Organization [facility] Address [address] [place] [address] Care Team Providers Care Compressor Service Technician Name Role Phone Quinn Herndon MD Primary Care Provider [phone] April Vizcaino MD Primary Care Provider Unavailabl e Encounter Details Date Type Department Care Team Description 11/16/2016 Night Triage Doc Medical Records [address] [place] [address] Abstract, Provider Social History Tobacco Use Types [...] on filedocumented in this encounter Care Teams Compressor Service Technician Relationship Specialty Start Date End Date Quinn Herndon MD [address] [place] [address] [phone] PCP - General Internal Medicine 08/25/13 11/26/16 April Vizcaino MD [address] [place] [address] PCP - General Internal Medicine 11/27/16 documented as of this encounter
--- OUTSIDE RECORDS SUMMARY | 2025-03-23 12:42 | XMS_ITS | Encounter Summary ---
Author Organization [facility] Address [address] [place] [address] Care Team Providers Care Director Electrical Engineering Name Role Phone Quinn Herndon MD Primary Care Provider [phone] April Vizcaino MD Primary Care Provider Unavailabl e Encounter Details Date Type Department Care Team Description 05/26/2016 Night Triage Doc Medical Records [address] [place] [address] Abstract, Provider Social History Tobacco Use Types [...] on filedocumented in this encounter Care Teams Director Electrical Engineering Relationship Specialty Start Date End Date Quinn Herndon MD [address] [place] [address] [phone] PCP - General Internal Medicine 08/25/13 11/26/16 April Vizcaino MD [address] [place] [address] PCP - General Internal Medicine 11/27/16 documented as of this encounter
--- OUTSIDE RECORDS SUMMARY | 2025-03-23 12:42 | XMS_ITS | Encounter Summary ---
Author Organization [employer] [facility] Address [address] [place] [address] Care Team Providers Care Principal Product Manager Name Role Phone Quinn Herndon MD Primary Care Provider [phone] April Vizcaino MD Primary Care Provider Unavailabl e Encounter Details Date Type Department Care Team Description 02/11/2014 Business Doc Medical Records [address] [place] [address] Abstract, Provider Social History Tobacco Use Types [...] on filedocumented in this encounter Care Teams Principal Product Manager Relationship Specialty Start Date End Date Quinn Herndon MD [address] [place], [place] [phone] PCP - General Internal Medicine 08/25/13 11/26/16 April Vizcaino MD [address] [place] [address] PCP - General Internal Medicine 11/27/16 documented as of this encounter
--- OUTSIDE RECORDS SUMMARY | 2025-03-23 12:42 | XMS_ITS | Encounter Summary ---
Author Organization [facility] [facility] Address [address] [place] [address] Care Team Providers Care Dietary Manager Name Role Phone Quinn Herndon MD Primary Care Provider [phone] April Vizcaino MD Primary Care Provider Unavailabl e Encounter Details Date Type Department Care Team Description 02/10/2016 Business Doc Medical Records [address] [place] [address] Abstract, Provider Social History Tobacco Use Types [...] on filedocumented in this encounter Care Teams Dietary Manager Relationship Specialty Start Date End Date Quinn Herndon MD [address] [place], [place] [phone] PCP - General Internal Medicine 08/25/13 11/26/16 April Vizcaino MD [address] [place] [address] PCP - General Internal Medicine 11/27/16 documented as of this encounter
--- OUTSIDE RECORDS SUMMARY | 2025-03-23 12:42 | XMS_ITS | Encounter Summary ---
Author Organization [facility] Address [address] [place] [address] Care Team Providers Care Bass String Winder Name Role Phone April Vizcaino MD Primary Care Provider Unavailabl e Encounter Details Date Type Department Care Team Description 05/24/2017 SCAN Medical Records [address] [place] [address] Abstract, Provider Social History Tobacco Use Types [...] on filedocumented in this encounter Care Teams Bass String Winder Relationship Specialty Start Date End Date April Vizcaino MD PCP - General Internal Medicine 11/27/16 documented as of this encounter
--- OUTSIDE RECORDS SUMMARY | 2025-03-23 12:42 | XMS_ITS | Encounter Summary ---
Author Organization [facility] Address [address] [place] [address] Care Team Providers Care Floor Installer Name Role Phone Quinn Herndon MD Primary Care Provider [phone] April Vizcaino MD Primary Care Provider Unavailabl e Encounter Details Date Type Department Care Team Description 06/06/2016 Business Doc Medical Records [address] [place] [address] Abstract, Provider Social History Tobacco Use Types [...] on filedocumented in this encounter Care Teams Floor Installer Relationship Specialty Start Date End Date Quinn Herndon MD [address] [place] [address] [phone] PCP - General Internal Medicine 08/25/13 11/26/16 April Vizcaino MD [address] [place] [address] PCP - General Internal Medicine 11/27/16 documented as of this encounter
--- OUTSIDE RECORDS SUMMARY | 2025-03-23 12:42 | XMS_ITS | Encounter Summary ---
Author Organization [facility] Address [address] [place] [address] Care Team Providers Care Autism Tutor Name Role Phone April Vizcaino MD Primary Care Provider Unavailabl e Quinn Herndon MD Primary Care Provider [phone] April Vizcaino MD Primary Care Provider Unavailabl e Encounter Details Date Type Department Care Team Description 08/21/2013 Gun Perforator Loader Report Medical Records [address] [place] [address] Abstract, Provider Social History Tobacco Use Types Packs/Day Years Used Date Smoking Tobacco: Never Assessed Sex Assigned at Date Recorded Not on file documented as of this encounter Plan of Treatment Not on file documented as of this encounter Visit Diagnoses Not on filedocumented in this encounter Care Teams Autism Tutor Relationship Specialty Start Date End Date April Vizcaino MD PCP - General Internal Medicine 11/18/11 08/24/13 Quinn Herndon MD [address] [place] [address] PCP - General Internal Medicine 08/25/13 11/26/16 April Vizcaino MD PCP - General Internal Medicine 11/27/16 documented as of this encounter
--- OUTSIDE RECORDS SUMMARY | 2025-03-23 12:42 | XMS_ITS | Encounter Summary ---
Author Organization [facility] Address [address] [place] [address] Care Team Providers Care Automation Clerk Name Role Phone Quinn Herndon MD Primary Care Provider [phone] April Vizcaino MD Primary Care Provider Unavailabl e Encounter Details Date Type Department Care Team Description 02/10/2016 Night Triage Doc Medical Records [address] [place] [address] Abstract, Provider Social History Tobacco Use Types [...] on filedocumented in this encounter Care Teams Automation Clerk Relationship Specialty Start Date End Date Quinn Herndon MD [address] [place], [place] [phone] PCP - General Internal Medicine 08/25/13 11/26/16 April Vizcaino MD [address] [place] [address] PCP - General Internal Medicine 11/27/16 documented as of this encounter
--- OUTSIDE RECORDS SUMMARY | 2025-03-23 12:42 | XMS_ITS | Encounter Summary ---
Author Organization [facility] Address [address] [place] [address] Care Team Providers Care Licensed Mental Health Counselor Name Role Phone Quinn Herndon MD Primary Care Provider April Vizcaino MD Primary Care Provider Unavailabl e Reason for Visit * Reason Onset Date Comments Vomiting 01/02/2014 Encounter Details Date Type Department Care Team Description 01/02/2014 Telephone Adult Urgent Care - [place] [address] [place], [place] [phone] Quinn Herndon MD [address] [place] [address] Vomiting Social History Tobacco Use Types Packs/Day Years Used Date Smoking Tobacco: Every Day Cigarettes 0.3 Smokeless Tobacco: Never Comments:Started @ age 18 Alcohol Use Standard Drinks/Week Comments No 0 (1 standard drink = 0.6 oz pur e alcohol) Sex Assigned at Date Recorded Not on file documented as of this encounter Miscellaneous Notes * Telephone Encounter - Kathe Corado L.P.N. - 01/02/2014 10:35 AM EST Daughter calling because her mother has had the sx of vomiting and nausea for months with no resolve. We've reviewed the chart and because there are no new acute sx, she will be seen on Saturday for follow up as planned. She said she called the overnight nursing triage service and was told she shouldbe tested for Lyme disease. Message to Zahra for Saturday. If appropriate she can order the test. * Telephone Encounter - Carine Batista - 01/02/2014 10:24 AM EST Symptoms patient is presenting: (daughter is calling- FYI) pt has been treating for diarrhea, vomiting for over a month and she doesn't seem to be getting better How long has patient had these symptoms?: a month PCP: Quinn Herndon [place] Plan[place] Product Type: MEDICARE [id number] documented in this encounter Plan of Treatment Not on file documented as of this encounter Visit Diagnoses Not on filedocumented in this encounter Care Teams Licensed Mental Health Counselor Relationship Specialty Start Date End Date Quinn Herndon MD [address] [place] [address] PCP - General Internal Medicine 08/25/13 11/26/16 April Vizcaino MD [address] [place] [address] PCP - General Internal Medicine 11/27/16 documented as of this encounter
--- OUTSIDE RECORDS SUMMARY | 2025-03-23 12:42 | XMS_ITS | Encounter Summary ---
Author Organization [facility] Address [address] [place] [address] Care Team Providers Care Attorney Law Clerk Name Role Phone Quinn Herndon MD Primary Care Provider [phone] April Vizcaino MD Primary Care Provider Unavailabl e Encounter Details Date Type Department Care Team Description 12/18/2013 Event Management Consultant Report Medical Records [address] [place] [address] Gigi Salamanca MD Social History Tobacco Use [...] on filedocumented in this encounter Care Teams Attorney Law Clerk Relationship Specialty Start Date End Date Quinn Herndon MD [address] [place], [place] [phone] PCP - General Internal Medicine 08/25/13 11/26/16 April Vizcaino MD [address] [place] [address] 11385 PCP - General Internal Medicine 11/27/16 documented as of this encounter
--- OUTSIDE RECORDS SUMMARY | 2025-03-23 12:42 | XMS_ITS | Encounter Summary ---
Author Organization [employer] [facility] Address [address] [place] [address] Care Team Providers Care Medical Lab Scientist Name Role Phone Quinn Herndon MD Primary Care Provider [phone] April Vizcaino MD Primary Care Provider Unavailabl e Encounter Details Date Type Department Care Team Description 01/01/2014 Night Triage Doc Medical Records [address] [place] [address] Abstract, Provider Social History Tobacco Use Types [...] on filedocumented in this encounter Care Teams Medical Lab Scientist Relationship Specialty Start Date End Date Quinn Herndon MD [address] [place] [address] [phone] PCP - General Internal Medicine 08/25/13 11/26/16 April Vizcaino MD [address] [place] [address] PCP - General Internal Medicine 11/27/16 documented as of this encounter
--- OUTSIDE RECORDS SUMMARY | 2025-03-23 12:42 | XMS_ITS | Encounter Summary ---
Author Organization [facility] Address [address] [place] [address] Care Team Providers Care Community Associate Name Role Phone Quinn Herndon MD Primary Care Provider [phone] April Vizcaino MD Primary Care Provider Unavailabl e Encounter Details Date Type Department Care Team Description 12/31/2013 Night Triage Doc Medical Records [address] [place] [address] Abstract, Provider Social History Tobacco Use Types [...] on filedocumented in this encounter Care Teams Community Associate Relationship Specialty Start Date End Date Quinn Herndon MD [address] [place] [address] [phone] PCP - General Internal Medicine 08/25/13 11/26/16 April Vizcaino MD [address] [place] [address] PCP - General Internal Medicine 11/27/16 documented as of this encounter
[2025-03-24 13:48] LABS: Transglutaminase IgA <1.0 U/mL
== END 2025-03-23 09:35 | disposition home or self-care (01) ==
LOC: HO.LAB 09:34
PROVIDERS: PCP Internal Medicine; Visit Provider Nurse Practitioner Family
DX: R10.11 Right upper quadrant pain (principal); R93.3 Abnormal findings on diagnostic imaging of other parts of digestive tract; R13.14 Dysphagia, pharyngoesophageal phase; Z12.11 Encounter for screening for malignant neoplasm of colon; R11.0 Nausea; K21.9 Gastro-esophageal reflux disease without esophagitis; K52.9 Noninfective gastroenteritis and colitis, unspecified
CPT/HCPCS: 36415; 82565; 83690; 84520; 86364; 99202

== ENCOUNTER 2025-03-23 09:34 | Outpatient (AMB) | payer OTHER, SELFPAY ==
[2025-03-23 10:09] VITALS: BP 134/68; PULSE 82; O2SAT 94; BMI 28.8
--- NOTE | 2025-03-23 10:09 | A.OFFVIS_ITS ---
Vital Signs 03/23/25 10:09 Height 5 ft 4 in Weight 168 lb BMI 28.8 BP 134/68 Blood Pressure Location Rt brachial Position Sitting Pulse 82 Pulse Source Pulse Oximeter Pulse Oximetry (%) 94 Oxygen Delivery Method Room Air Intake Visit Reasons: colo screening Double procedure consult, hx GERD Intake Note: NEW PATIENT for initial colo screening, symptomatic. Referred by Pulmonary. Prior hx of colo/egd? N. Abnormal findings on esophageal diagnostics. CC; C.O. early satiety, dysphagia, RUQ pain (seemingly relieved by palpation of the abd per pt). Pt reports taking metoclopramide which she states she cannot live any semblance of a normal life without. Pt also comments that her Dexilant is still effective in controlling her acid reflux but not helping with the dysphagia. Family Medicine Resident Required: No Accompanied by: Self / Same As Patient Allergies Clindamycin HCl Allergy (Unknown, Verified 03/23/25 10:09) esophagus, trouble swallowing gabapentin Allergy (Unknown, Verified 03/23/25 10:09) Unknown ibuprofen Allergy (Unknown, Verified 03/23/25 10:09) nausea metoclopramide [Reglan] Allergy (Unknown, Verified 03/23/25 10:09) jittery NSAIDS (Non-Steroidal Anti-Inflamma [NSAIDS (NON-STEROIDAL ANTI-INFLAMMA] Allergy (Unknown, Verified 03/23/25 10:09) STOMACH UPSET oxycodone [OXYCODONE] Allergy (Unknown, Verified 03/23/25 10:09) palpitations, hyper pseudoephedrine [Sudafed] Allergy (Unknown, Verified 03/23/25 10:09) Unknown tramadol [TRAMADOL] Allergy (Unknown, Verified 03/23/25 10:09) palpitations, hyper vilazodone [Viibryd] Allergy (Unknown, Verified 03/23/25 10:09) dry mouth and tremors zolpidem [Ambien] Allergy (Unknown, Verified 03/23/25 10:09) Unknown bupropion [BUPROPION] Adverse Reaction (Intermediate, Verified 03/23/25 10:09) HTN, BLURRY VISION quetiapine [From Seroquel] Adverse Reaction (Intermediate, Verified 03/23/25 10:09) patient states levofloxacin Adverse Reaction (Unknown, Verified 03/23/25 10:09) weakness, nausea/vomiting HPI HPI colo screening Double procedure consult, hx GERD: Details: 54-year-old female with past medical history of depression, asthma, hypertension, COPD, chronic allergic rhinitis, atherosclerosis of abdominal aorta, hypercholesteremia, fibromyalgia, migraine, GERD, insomnia is here today for initial consultation. Patient was sent by PCP and by metal welder for abnormal barium swallow. Mildly disorganized motility of esophagus with possible gastritis. Small hiatal hernia and possible gastritis. Patient reports epigastric pain postprandially and nausea when she wakes up in the mor nathaniel. Patient is started eating differently just about few weeks ago. She is taking Dexilant in the morning before breakfast. Patient usually has banana and coffee with lactose free milk in the morning. Patient reports that she does not eat late at night. Patient also reports diarrhea sometimes postprandially and sometimes up to 5 - 6 times a day. Patient is status post cholecystectomy in . Patient reports that her symptoms are aggravating. 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 She is trying to take probiotics and with diet she feels like her symptoms are improving. Denies melena, hematochezia, unintentional weight loss or ribbon like stools. Patient reports dyspepsia without dysphagia or odynophagia. Patient states that the only way that she can make it through the day is when she takes Reglan in the morning. Patient does admit that Reglan makes her little jittery, however patient tries to do exercise and there symptoms usually go away. Patient reports abdominal bloating, feeling gassy. Patient denies any other GI concerning symptoms. [facility] Medical History Major depressive disorder, recurrent severe without psychotic features Seizure disorder Ingrown left greater toenail Vitamin D deficiency Asthma Allergies Bronchitis Acute bronchitis Left leg numbness Chronic restrictive lung disease Asthma-COPD overlap syndrome Chronic allergic rhinitis Palpitation SARS-CoV-2 positive Generalized anxiety disorder Allergy to vaccine Low back pain Gallbladder polyp Closed left clavicular fracture History of miscarriage Temporal lobe epilepsy Hypercholesterolemia Fibromyalgia Migraine Bile salt-induced diarrhea Insomnia GERD (gastroesophageal reflux disease) Surgical History History of esophagogastroduodenoscopy (EGD) (~2017) History of cholecystectomy Family History Father Cancer Mother CVD (cerebrovascular disease) Sister Breast cancer Family/Other Brain cancer Paternal Uncle Colon cancer Paternal Grandmother Stomach cancer Other Mental health disorder Social History Housing: Apartment Alcohol intake: never Patient Tobacco Use Status: Former Tobacco user Tobacco use type: Cigarette Years Smoked: 1 pack per week stopped 2021 e-Cigarette/Vaping Use: Never Used Second Hand Smoke Exposure: Yes service: No Current occupational status: unemployed Gender identity: Female Cognitive needs: No Hearing needs: No Vision needs: Yes Review of Systems Const Denies weight gain and Denies weight loss ENT Reports no additional complaints, Denies dysphagia and Denies odynophagia Card Reports no additional complaints Resp Reports no additional complaints GI Denies abdominal pain, Denies belching, Denies melena, Denies bloating, Denies change in bowel habits, Denies dysphagia, Denies excessive flatus, Denies dyspepsia, Denies heartburn, Denies diarrhea, Denies loose stools, Denies nausea, Denies odynophagia and Denies vomiting Musc Reports no additional complaints Neuro Reports no additional complaints Psych Reports no additional complaints Endo Reports no additional complaints Physical Exam Vital Signs: Last Vital Signs Pulse 82 03/23/25 10:09 BP 134/68 03/23/25 10:09 Pulse Ox 94 03/23/25 10:09 Oxygen Delivery Method Room Air 03/23/25 10:09 BMI result Body Mass Index 28.8 Const General: healthy appearing, no acute distress and well developed Nutritional Appearance: well nourished Orientation/consciousness: patient oriented x3 Resp Effort & Inspection: normal respiratory effort, able to speak in complete sentences, no tracheal deviation and symmetric chest movement Auscultation: clear to auscultation bilaterally Cardio Rate: regular rate GI Inspection: Yes normal to inspection and No distended Palpation (GI): Soft to palpation, not firm, Tenderness to palpation present (GI) in the RUQ; Vallejo's sign negative, no guarding and No hepatosplenomegaly present Auscultation: normal bowel sounds General: Yes no CVA tenderness Back/Spine/Pelvis Back: no CVA tenderness Skin General skin exam: elasticity normal, turgor normal and dry skin Neuro General: patient oriented x3 Psych Appearance: grossly normal Mental Status: mental status grossly normal Results Reviewed Results Reviewed: BARIUM SWALLOW IMPRESSION: 1. Mildly disorganized esophageal peristalsis. 2. Small type I hiatal hernia. 3. Severely thickened gastric rugal folds that suggests chronic gastritis. Grossly no mass. Recommend correlation with EGD. Assessment & Plan Assessment & Plan (1) Abnormal barium swallow: Code(s): R93.3 - Abnormal findings on diagnostic imaging of other parts of digestive tract Category: Medical (2) Dysphagia: Code(s): R13.10 - Dysphagia, unspecified Category: Medical Qualifiers: Dysphagia type: pharyngoesophageal phase Qualified Code(s): R13.14 - Dysphagia, pharyngoesophageal phase (3) Colon cancer screening: Code(s): Z12.11 - Encounter for screening for malignant neoplasm of colon Category: Medical (4) GERD (gastroesophageal reflux disease): Code(s): K21.9 - Gastro-esophageal reflux disease without esophagitis Category: Medical Qualifiers: Esophagitis presence: without esophagitis Qualified Code(s): K21.9 - Gastro-esophageal reflux disease without esophagitis (5) Nausea: Code(s): R11.0 - Nausea (6) Postprandial diarrhea: Code(s): K52.9 - Noninfective gastroenteritis and colitis, unspecified Plan Patient reports epigastric pain and nausea. Will send her to check lipase, transglutaminase. Patient reports early satiety will send her for gastric emptying study test. Patient reports also right and left upper quadrant pain, will send her for CT scan to rule out diverticulitis. Patient reports tenderness to right upper quadrant. Reports postprandial diarrhea. Patient also reports diarrhea throughout the day sometimes 5-6 times a day. This could be related to post cholecystectomy. Patient was encouraged to take fiber with pre and probiotics. Patient also will be given sucralfate which should help with her epigastric pain and nausea in the morning and also help with the diarrhea. I encouraged patient to hold Reglan as she is jittery and if taking more often her symptoms could get worse. Patient will try to take sucralfate at night time call us in few days if she continues to have epigastric pain and nausea in the morning and can increase the sucralfate to twice a day. Patient will return in 3 months, sooner on as needed basis. Patient is agreeable to this plan and verbalizes understanding of instructions. She was given the opportunity to ask questions and all questions answered. Thank you for allowing me to participate in her care Orders: Orders Lipase Today R10.9 - Unspecified abdominal pain NM gastric emptying study Today R68.81 - Early satiety Transglutaminase IgA Today R10.9 - Unspecified abdominal pain Creatinine Today R10.11 - Right upper quadrant pain Blood Urea Nitrogen Today R10.11 - Right upper quadrant pain CT abdomen pelvis w IV con Today R10.11 - Right upper quadrant pain, R10.9 - Unspecified abdominal pain Medications: New sucralfate 1 g PO BEDTIME 30 tabs 4RF R19.7 - Diarrhea, unspecified Changed From metoclopramide HCl PO To metoclopramide HCl 5 mg PO DAILY 10 tabs 0RF Coding Level of Care Code New Pt Level 4 (39677) Diagnoses Abnormal barium swallow R93.3 Pharyngoesophageal dysphagia R13.14 Dysphagia type: pharyngoesophageal phase Colon cancer screening Z12.11 Gastroesophageal reflux disease without esophagitis K21.9 Esophagitis presence: without esophagitis Nausea R11.0 Postprandial diarrhea K52.9 Time Spent (min) 50 Comment 35 minutes spent with patient and additional 15 minutes spent reviewing her records
--- OUTSIDE RECORDS SUMMARY | 2025-03-23 10:34 | XMS_ITS | Data Portability ---
Author Organization [employer] [facility] [employer] Address [address] [place] [phone] Care Team Providers Care Wheel Tuner Name Role Phone HIM CCA OTHER Assessment Encounter Date Assessment Date Assessment LastModified by Organization Details LastModified Time 10/12/2024 10/12/2024 service called f or cough, SOB found 54 milagros with hx asthma COPD on Xolair, has leather whitener anxiety c/o return of productive cough, SOB, [...] Assessment and Plan as documented by the Domestic Housekeeper. Patient given the opportunity to ask questions. Our service contacted for an assessment of: Nasal congestion As per above, patient states she has a sinus infection. States that she has pressure in the sinuses on both sides. Also complaining of a mild headache. Initially stated she was not taking anything [id number] but then stated she was taking Robitussin twice a day and Mucinex every 4 hours without relief. Denies use a nasal decongestant specifically. Has history of asthma and has been seen by this service as well as being followed by Pulmonary. Using her steroid inhaler twice a day. Review of records reveals 7 antibiotic prescriptions over the course of the past year. Per cytogenetic technician on the scene, vital signs are stable [...] symptoms. Encouraged follow-up with PCP and with leather whitener. Ativan abundance of caution prescribed doxycycline for [...] Assessment and Plan as documented by the Domestic Housekeeper. Patient given the opportunity to ask questions. Our service contacted for an assessment of: Nasal congestion As per above, patient states she has a sinus infection. States that she has pressure in the sinuses on both sides. Also complaining of a mild headache. Initially stated she was not taking anything [id number] but then stated she was taking Robitussin twice a day and Mucinex every 4 hours without relief. Denies use a nasal decongestant specifically. Has history of asthma and has been seen by this service as well as being followed by Pulmonary. Using her steroid inhaler twice a day. Review of records reveals 7 antibiotic prescriptions over the course of the past year. Per cytogenetic technician on the scene, vital signs are stable [...] symptoms. Encouraged follow-up with PCP and with leather whitener. Ativan abundance of caution prescribed doxycycline for [...] particularly fever chills lightheadedness altered mental status [place] [id number] Not available 01/24/2025 14:37:31 Plan of Treatment Reminders Order Date Submit Date Provider Last Modified By Organization Details Last Modified Time Details Appointments None recorded. Lab None recorded. Referral None recorded. Procedures None recorded. Surgeries None recorded. Imaging None recorded. Medication Orders doxycycline hyclate 100 mg capsule 2024 025 [id number] [address] [place], [place], [id number], 14:37:32 doxycycline hyclate 100 mg capsule 2024 025 [address] [facility], [address] [place], [place], [id number], 14:37:25 doxycycline hyclate 100 mg capsule 2024 025 [address], [address] [place], [place], [id number], 5 19:38:12 doxycycline hyclate 100 mg capsule [email or web address] [facility] #[id number], [address] [place], [place], [id number], 5 19:38:20 prednisone 20 mg tablet 2023 024 [facility] #[id number], [address] [place], [place], [id number], 4 22:14:25 levofloxaci n 750 mg tablet 2023 024 [facility] #[id number], [facility] [place], [place], [id number], 4 22:14:25 levofloxaci n 750 mg tablet 2023 024 [facility] #[id number], [address] [place], [place], [id number], 4 22:17:04 prednisone 10 mg tablet 2023 024 [facility] #[id number], [address] [place], [place], [id number], 4 22:17:04 fluconazole 150 mg tablet 2023 024 [facility] #[id number], [address] [place], [place], [id number], 4 22:19:10 Patient TargetsNo targets recorded. Patient InstructionsNo instructions recorded. Reason for Referral None Reported. Medical Equipment None Reported. Allergies Allergen ID Allergen Name Allergen Category Reaction Reaction Severity Criticality Documentation Date Start Date Code Code System Note Provider Name and Address Organization Details Recorded Time 15092 oxycodone medicatio n Not available Not available Not available 10/12/2024 6434 RxNorm Not Available [facility] - production 4 20:09:51 36471 Sudafed medicatio n Not available Not available Not available 10/12/202422140 2 RxNorm Not Available [facility] - production 4 20:09:51 42620 acetamino phen / dextromet horphan / doxylamin e / pseudoeph edrine medicatio n Not available Not available Not available 01/24/2025 92641 4 RxNorm Not Available [facility] - [facility] 5 12:16:23 Medications Name Sig Start Date [...] Updated DateTime 5 80 /min 20 /min 00242.8 8 g 162.56 cm 98.1 [degF] 96 [...] SNOMED-CT Code Diagnosis ICD10 Code Diagnosis Note [id number] Sonia Good MD [facility] [address] [place] [phone] 10/12/2024 21:00:35 10/12/2024 23:38:11 Acute exacerbation of chronic obstructive pulmonary disease 308489432 J44.1 Candidiasis of vagina 72 263383 B37.31 [id number] Brittany Lopez MD [facility] - [facility] [address] [place] [phone] 12/18/2024 17:21:19 12/22/2024 16:07:56 Exacerbation of intermittent asthma 114388266 J45.21 Congestion of nasal sinus 08153391 R09.81 [id number] Brittany Lopez [place] [phone] 01/24/2025 14:28:21 01/24/2025 19:29:04 Exacerbation of intermittent asthma 382516056 J45.21 Health Concerns Section Related Observation LastModified by Organization Detai ls LastModified Time None Recorded Concern Status LastModified by Organization Details LastModified Time None Recorded Advance Directives Directive None Recorded Payers Encounter Date Sequence Insurance Name Policy Number Policy Benitez Covered Member ID Benitez Member ID Guarantor Name 10/12/2024 1 [facility] - DOS ON OR AFTER 2023 - DUAL ELIGIBLE - SENIOR LIVING OPTIONS AND ONE CARE (MEDICARE REPLACEMENT/ADV ANTAGE - HMO) Zoila Giron [id number] Zoila Mack 12/18/2024 1 [facility] - DOS ON OR AFTER 2023 - DUAL ELIGIBLE - SENIOR LIVING OPTIONS AND ONE CARE (MEDICARE REPLACEMENT/ADV ANTAGE - HMO) Zoila Mack [id number] Zoila Mack 01/24/2025 1 [facility] - DOS ON OR AFTER 2023 - DUAL ELIGIBLE - SENIOR LIVING OPTIONS AND ONE CARE (MEDICARE REPLACEMENT/ADV ANTAGE - HMO) Zoila Mack [id number] Zoila Mack Notes Date Note Type Note [...] ....................... ....................... ....................... ....................... ....................... ....................... ... Domestic Housekeeper Note From Angel Shabazz: This 54-year-old female [...] Patient is under the care of a leather whitener is scheduled to see him in two weeks. Patient also uses cetirizine, Flonase, Breo, and albuterol nebulizer treatments. Patient states the symptoms are consistent with previous flareups.Patient presents awake and alert, in no acute distress. Her vital signs are reasonably stable and she is afebrile. Nonfocal neurological exam. Normal gait. Mild diffuse expiratory wheezing. Abdomen is soft, nontender, nondistended. No lower extremity edema.[facility] spoke directly to patient and provided significant education. This patient was treated with levofloxacin 750 mg PO and prednisone 40 mg. Patient was instructed to follow up with her leather whitener tomorrow and to present to the ED for any new or worsening symptoms, which I reviewed with her. The patient was given the opportunity to ask questions to the [facility] and myself and is agreeable to this plan. ....................... ....................... ....................... ....................... ....................... ....................... ... [facility] Consulted: Sonia Good ....................... ....................... ....................... ....................... ....................... ....................... ... Disposition: Fulfilled Sonia Good MD [address] [place] [address],[address], [place], [phone], [facility] 10/12/2024 22:19:58 12/18/2024 text/html HPI: mbr with complaints of cough congestion producing yellow phlegm x1wk, states feeling weak/lightheaded/RAMÍREZ and increased SOB with exertion, denies any CP/N/V fevers or chills, speaking in full sentences. requesting [facility] for evaluationProtocol Used: Cough - Acute ProductiveProtocol-Base d Disposition: Consider Parish [facility] Community clinician, MD/FINISHER WALLBOARD AND PLASTER[employer]ARD triage, PCP, or Urgent Care Visit within [...] at 12/18/2024 - 16:18 Comments: Reviewed HPI Domestic Housekeeper Organization Information for Britton Lopes Business Legal Name: [employer]? Address: [address] [place] [address], Saddle Stitch Operator: Jeremy Sweeney MD CLIA No.: [id number] Domestic Housekeeper POC Test Results from [facility] Rapid COVID antigen (17:24:13) COVID: - Rapid influenza antigen (17:24:14) Flu: - ....................... ....................... ....................... ....................... ....................... ....................... ... Domestic Housekeeper Note From Britton Lopes: [facility] makes pt contact. She opens the front door and invites [facility] in. She is generally well-appearing. Her [...] BID and reported this change to her leather whitener. She is also giving herself her home neb treatments about three times per day. She consents to treatment and evaluation today. [facility] obtains pt consent and uploads. Vital signs are obtained and pt is swabbed for COVID/flu and physically assessed. Lung sounds are clear and equal, but diminished bilateral. She is tender to tapping over the sinuses and throat is red, but glands are not swollen. Remaining physical exam is unremarkable. [facility] contacts [facility] and discusses the above. [facility] orders [facility] administer 1 tablet (100mg) doxycycline and calls in a prescription to pt's pharmacy. Pt thanks [facility] for coming. [facility] is clear. Report complete by REJI Lopes [id number]. ....................... ....................... ....................... ....................... ....................... ....................... ... [facility] Consulted: Brittany Lopez ....................... ....................... ....................... ....................... ....................... ....................... ... Disposition: Fulfilled Brittany oLpez MD [address] [place] [address],[address], [place], [phone], [employer] 12/18/2024 19:38:36 01/24/2025 text/html HPI: c/o sore [...] ....................... ....................... ....................... ....................... ....................... ....................... ... [facility] Nurse Triage Notes (Iggy Tobar): Chief Complaints: Sore Throat PMH: Chronic Obstructive Pulmonary Disease (COPD), Asthma PMH Reviewed at 01/24/2025 12:16 Allergies Reviewed at 01/24/2025 - 12:16 Comments: Reviewed HPI Domestic Housekeeper Organization Information for Angel Shabazz Business Legal Name: [facility] Address: [address] [place] [address], [place] [address], Saddle Stitch Operator: David Saul MD [place] No.: [id number] Domestic Housekeeper POC Test Results from Angel Shabazz Rapid COVID antigen (14:32:17) COVID: - Rapid influenza antigen (14:32:17) Flu: - ....................... ....................... ....................... ....................... ....................... ....................... ... Domestic Housekeeper Note From Angel Shabazz: This 54-year-old female [...] I recommend she follows up with her leather whitener this week and present to the emergency department for any new or worsening severe symptoms such as chest pain, severe shortness of breath, high fever, altered mental status. The patient was given the opportunity to ask questions and is agreeable to this plan. [facility] Medication Orders: doxycycline hyclate 100 mg capsule: Administered ....................... ....................... ....................... ....................... ....................... ....................... ... [facility] Consulted: Brittany Lopez ....................... ....................... ....................... ....................... ....................... ....................... ... Disposition: Sandra Lopez MD [address] [facility],[address], [place], [phone], [employer] 01/24/2025 15:01:56 OBGyn Episode No OBEpisode recorded.
--- OUTSIDE RECORDS SUMMARY | 2025-03-23 10:34 | XMS_ITS | Clinical Summary ---
Author Organization [facility] Address [address] [place] [address] Care Team Providers Care Director Of Advertising Sales Name Role Phone April Vizcaino MD Primary Care Provider [phone] Social History Tobacco Use Types Packs/Day Years [...] RESULTING AGENCY - 06/18/2018 9:05 AM EDT [id number] THINPREP PAP, IMAGED: ATYPICAL SQUAMOUS CELLS OF [...] Recently Relevant to Health Maintenance Care Teams Director Of Advertising Sales Relationship Specialty Start Date End Date April Vizcaino MD [address] [place] [address] [address] [facility] [place] [address] PCP - General Internal Medicine 11/27/16
--- OUTSIDE RECORDS SUMMARY | 2025-03-23 10:34 | XMS_ITS | Patient Health Record ---
Author Organization [facility] Address [address] [place] [address] Care Team Providers Care Interior Design Teacher Name Role Phone Po April SHEEHAN Primary Care Provider Clemente Hope Jr Unavailable [phone] Allergies Allergen (clinical drug ingredient) Drug/Non Drug [...] Status W/U Status Risk Notes Problem Nausea (638453753) Nausea (787.02) Active confirmed Problem Epigastric pain (789.06) Active confirmed Plan Of Treatment Future Test Test Name Order Date UPPER GI ENDOSCOPY 07/17/2013 Insurance Providers Payer Name Payer Address Payer Phone Subscriber Number Group Number Insured Name Patient Relationship to Insured Coverage Start Date Coverage End Date MEDICARE OF [place] [address] [place] [id number] CLAUDIA MOONEY Self - patient is the insured [facility] [address] [place] [address] [id number] CLAUDIA MOONEY Self - patient is the insured Medical (General) History Medical History History ICD Code egd abd pain epigastric pain benign heart murmur-for which no antibio tic prophylaxis are taken. anxiety attacks allergies
== END 2025-03-23 10:52 | disposition home or self-care (01) ==
LOC: HO.HGI 09:35
PROVIDERS: PCP Internal Medicine; Visit Provider Nurse Practitioner Family
DX: R13.14 Dysphagia, pharyngoesophageal phase (principal); K21.9 Gastro-esophageal reflux disease without esophagitis; R11.0 Nausea; Z12.11 Encounter for screening for malignant neoplasm of colon
CPT/HCPCS: 99204

== ENCOUNTER → 2025-06-17 08:02 | Outpatient (REF) | payer OTHER, SELFPAY ==
--- NOTE | ~2025-06-17 | NM_ITS ---
EXAMINATION: AR RADIONUCLIDE SOLID FOOD GASTRIC EMPTYING 4-HOUR STUDY CLINICAL INFORMATION: R68.81 - Early satiety COMPARISON: There are no prior studies available for comparison. TECHNIQUE: A standard meal consisting of 4 oz of Egg Beaters brand tagged with 1.0 mCi Tc-99m Sulfur Colloid, 6 oz water and 2 slices of toast with jelly was administered orally to the patient. Images were obtained using a dual head gamma camera in the anterior and posterior projections over of the stomach immediately post ingestion and at hourly intervals up to 4 hours post ingestion. The anterior and posterior counts at each time interval were averaged using the geometric mean and expressed as percentage of the immediate post ingestion counts. FINDINGS: There is visualization of activity in the stomach immediately post ingestion. As the study progresses, there is clearance of activity from the stomach and visualization of progressively increasing small bowel activity. By the end of the study, there is almost no retention noted in the stomach. Retention in the stomach at each time interval was: 1 hour 74% (normal 37%-90%) 2 hours 70% (normal 30%-60%) 3 hours 41% 4 hours 9% (normal 0%-10%) AR/AR gastric emptying study IMPRESSION: Delayed gastric emptying at 2 hours. Otherwise unremarkable examination. For solid meal, rapid gastric emptying is less than 30% at 60 minutes. Delayed gastric emptying criteria is more than 60% remaining at 120 minutes or more than 10% at 240 minutes. The 4-hour value is the best discriminator of a normal or abnormal result). Gastric emptying study grading per JNMT Consensus Recommendations in 2008 (https://tech.snmjournals.org/content/36/44) Grade 1 (mild retention): 11-20% at 4h Grade 2 (moderate retention): 21-35% at 4h Grade 3 (severe retention): 36-50% at 4h Grade 4 (very severe retention): >50% retention at 4h Electronically signed by: Fady John MD 06/17/2025 01:28 PM EDT
--- OUTSIDE RECORDS SUMMARY | 2025-06-17 08:07 | XMS_ITS | Encounter Summary ---
Author Organization [facility] Address [address] [place] [address] Care Team Providers Care Reinforcing Rod Layer Name Role Phone Quinn Herndon MD Primary Care Provider [phone] April Vizcaino MD Primary Care Provider Unavailabl e Encounter Details Date Type Department Care Team Description 11/25/2016 Telephone Adult Medicine [address] [phone] Quinn Herndon MD [address] [place] [phone] Social History Tobacco Use Types Packs/Day Years [...] on filedocumented in this encounter Care Teams Reinforcing Rod Layer Relationship Specialty Start Date End Date Quinn Herndon MD [address] [place] [address] PCP - General Internal Medicine 08/25/13 11/26/16 April Vizcaino MD [address] [place] [address] PCP - General Internal Medicine 11/27/16 documented as of this encounter
--- OUTSIDE RECORDS SUMMARY | 2025-06-17 08:07 | XMS_ITS | Clinical Summary ---
Author Organization [facility] it Address [address] [place] [address] Care Team Providers Care Cash Register Repairer Name Role Phone April Vizcaino MD Primary Care Provider [phone] Social History Tobacco Use Types Packs/Day Years [...] RESULTING AGENCY - 06/18/2018 9:05 AM EDT [id number] THINPREP PAP, IMAGED: ATYPICAL SQUAMOUS CELLS OF [...] Recently Relevant to Health Maintenance Care Teams Cash Register Repairer Relationship Specialty Start Date End Date April Vizcaino MD [address] [place] [address] [address] [facility] [place] [address] PCP - General Internal Medicine 11/27/16
--- OUTSIDE RECORDS SUMMARY | 2025-06-17 08:07 | XMS_ITS | Clinical Summary ---
Author Organization [facility] Address [address] [facility] [address] [place] [address] Phone Care Team Providers Care Ultrasound Specialist Name Role Phone Unavailable Primary Care Provider [...] B [place] PART A & B [facility] Additional Source Comments The information contained in this document represents components of the legal health record. It is not the complete legal health record.[facility]
[2025-06-17 09:02] LABS: Appearance Urine Clear; Glucose Urine UA Negative (Negative); PH 8.0 (5.0-9.0); Specific Gravity - Urine <= 1.005 (1.005-1.025)
[2025-06-17 09:09] LABS: Hemoglobin A1C 154.5900 umol/L; Total Hemoglobin (HGBA1C) 4107.0614 umol/L
[2025-06-17 09:23] LABS: Alanine Aminotransferase 16 U/L (0-31); Albumin Level 4.6 g/dL (3.5-5.0); Alkaline Phosphatase 90 U/L (39-117); Anion Gap 13 (12-20); Aspartate Amino Transferase 24 U/L (5-31); Blood Urea Nitrogen 13 mg/dL (9-16); Calcium 9.6 mg/dL (8.4-10.2); Carbon Dioxide 25 mmol/L (22-29); Chloride 107 mmol/L (96-108); Cholesterol 211 mg/dL (<200); Estimated Glomerular Filt Rate > 60; HDL Cholesterol 45 mg/dL (>40); Potassium 4.3 mmol/L (3.3-5.1); Sodium 141 mmol/L (135-145); Total Protein 7.3 g/dL (6.5-8.0); Triglycerides 137 mg/dL (<150)
== END ==
LOC: HO.NUCMED 08:02
PROVIDERS: Absent Provider Internal Medicine; PCP Internal Medicine; Visit Provider Nurse Practitioner Family
DX: R68.81 Early satiety (principal); R39.9 Unspecified symptoms and signs involving the genitourinary system; I70.0 Atherosclerosis of aorta; E78.00 Pure hypercholesterolemia, unspecified; Z13.1 Encounter for screening for diabetes mellitus
CPT/HCPCS: 36415; 78264; 80053; 80061; 81003; 83036; A9541

== ENCOUNTER → 2025-06-17 08:22 | Outpatient (BNV) | payer OTHER, SELFPAY | PROVIDERS: Absent Provider Internal Medicine; PCP Internal Medicine; Visit Provider Radiology Diagnostic Radiology | DX: K31.84 Gastroparesis (principal) | CPT/HCPCS: 78264 ==

== ENCOUNTER 2025-06-23 09:15 | Outpatient (AMB) | payer OTHER, SELFPAY ==
--- OUTSIDE RECORDS SUMMARY | 2025-06-23 09:34 | XMS_ITS | Clinical Summary ---
Author Organization [facility] Address [address] [facility] [address] [place] [address] Phone Care Team Providers Care Welder Manufacture Name Role Phone Unavailable Primary Care Provider [...] B [place] PART A & B [facility] Additional Source Comments The information contained in this document represents components of the legal health record. It is not the complete legal health record.[facility]
--- OUTSIDE RECORDS SUMMARY | 2025-06-23 09:34 | XMS_ITS | Clinical Summary ---
Author Organization [facility] it Address [address] [place] [address] Care Team Providers Care Laundry Pricing Clerk Name Role Phone April Vizcaino MD Primary Care Provider [phone] Social History Tobacco Use Types Packs/Day Years [...] RESULTING AGENCY - 06/18/2018 9:05 AM EDT [id number] THINPREP PAP, IMAGED: ATYPICAL SQUAMOUS CELLS OF [...] Recently Relevant to Health Maintenance Care Teams Laundry Pricing Clerk Relationship Specialty Start Date End Date April Vizcaino MD [address] [place] [address] [address] [facility] [place] [address] PCP - General Internal Medicine 11/27/16
--- OUTSIDE RECORDS SUMMARY | 2025-06-23 09:34 | XMS_ITS | Patient Health Record ---
Author Organization [facility] Address [address] [place] [address] Care Team Providers Care Warehouse Assistant Name Role Phone Po April SHEEHAN Primary [...] Status W/U Status Risk Notes Problem Nausea (787.02) Active confirmed Problem Epigastric pain (38075420) Epigastric pain (789.06) Active confirmed Plan Of Treatment Future Test Test Name Order Date UPPER GI ENDOSCOPY 07/17/2013 Insurance Providers Payer Name Payer Address Payer Phone Subscriber Number Group Number Insured Name Patient Relationship to Insured Coverage Start Date Coverage End Date MEDICARE OF [place] [address] [place] [id number] CLAUDIA MOONEY Self - patient is the insured MEDICAID OF [facility] [address] [place] [phone] [id number] JESICA CLAUDIA Self - patient is the insured Medical (General) History Medical History History ICD Code egd abd pain epigastric pain benign heart murmur-for which no antibio tic prophylaxis are taken. anxiety attacks allergies
--- NOTE | 2025-06-23 09:38 | MHC.OFFVIS ---
Vital Signs 06/23/25 09:58 Height 5 ft 4 in Weight 166 lb BMI 28.5 BP 130/76 Blood Pressure Location Rt brachial Position Sitting Pulse 74 Pulse Source Pulse Oximeter Pulse Oximetry (%) 97 Oxygen Delivery Method Room Air Intake Visit Reasons: discuss colo prep Intake Note: Est pt for mgmt of GERD. Labs and NM done. CT outstanding. CC: Pt denies any GI changes or new concerns to report since last visit. Pt does have concerns pertaining to urinary frequency and would like to discuss possible urology referral. Front Maker Lockstitch Required: No Accompanied by: Self / Same As Patient Allergies Clindamycin HCl Allergy (Unknown, Verified 06/23/25 09:50) esophagus, trouble swallowing gabapentin Allergy (Unknown, Verified 06/23/25 09:50) Unknown ibuprofen Allergy (Unknown, Verified 06/23/25 09:50) nausea metoclopramide (Reglan) Allergy (Unknown, Verified 06/23/25 09:50) jittery NSAIDS (Non-Steroidal Anti-Inflamma (NSAIDS (NON-STEROIDAL ANTI-INFLAMMA) Allergy (Unknown, Verified 06/23/25 09:50) STOMACH UPSET oxycodone (OXYCODONE) Allergy (Unknown, Verified 06/23/25 09:50) palpitations, hyper pseudoephedrine (Sudafed) Allergy (Unknown, Verified 06/23/25 09:50) Unknown tramadol (TRAMADOL) Allergy (Unknown, Verified 06/23/25 09:50) palpitations, hyper vilazodone (Viibryd) Allergy (Unknown, Verified 06/23/25 09:50) dry mouth and tremors zolpidem (Ambien) Allergy (Unknown, Verified 06/23/25 09:50) Unknown bupropion (BUPROPION) Adverse Reaction (Intermediate, Verified 06/23/25 09:50) HTN, BLURRY VISION quetiapine (From Seroquel) Adverse Reaction (Intermediate, Verified 06/23/25 09:50) patient states levofloxacin Adverse Reaction (Unknown, Verified 06/23/25 09:50) weakness, nausea/vomiting HPI HPI discuss colo prep: Details: LAST VISIT: Abnormal barium swallow Dysphagia Colon cancer screening GERD (gastroesophageal reflux disease) Nausea Postprandial diarrhea Plan Patient reports epigastric pain and nausea. Will send her to check lipase, transglutaminase. Patient reports early satiety will send her for gastric emptying study test. Patient reports also right and left upper quadrant pain, will send her for CT scan to rule out diverticulitis. Patient reports tenderness to right upper quadrant. Reports postprandial diarrhea. Patient also reports diarrhea throughout the day sometimes 5-6 times a day. This could be related to post cholecystectomy. Patient was encouraged to take fiber with pre and probiotics. Patient also will be given sucralfate which should help with her epigastric pain and nausea in the morning and also help with the diarrhea. I encouraged patient to hold Reglan as she is jittery and if taking more often her symptoms could get worse. Patient will try to take sucralfate at night time call us in few days if she continues to have epigastric pain and nausea in the morning and can increase the sucralfate to twice a day. Patient will return in 3 months, sooner on as needed basis. Patient is agreeable to this plan and verbalizes understanding of instructions. She was given the opportunity to ask questions and all questions answered. ? Thank you for allowing me to participate in her care Orders Lipase Today R10.9 NM gastric emptying study Today R68.81 Transglutaminase IgA Today R10.9 Creatinine Today R10.11 Blood Urea Nitrogen Today R10.11 CT abdomen pelvis w IV con Today R10.11, R10.9 New sucralfate 1 g PO BEDTIME 30 tabs 4RF R19.7 Changed Changed From metoclopramide HCl PO Changed To metoclopramide HCl 5 mg PO DAILY 10 tabs 0RF TODAY'S VISIT Patient is here today for follow-up and to discuss going for colonoscopy and endoscopy. Patient continues to have nausea in the morning and only thing that helps is Reglan. Patient takes half of the 10 mg Reglan in the morning and states that her symptoms of nausea are suppressed all day. Patient continues to have a postprandial diarrhea with almost anything that she eats. Patient tried sucralfate before and it was not making her feel good. She is taking Dexilant in the morning. Will switch that to night time. Patient reports occasional dyspepsia and dysphagia without odynophagia. We will send her for upper endoscopy as well. Patient denies melena, hematochezia, unintentional weight loss or ribbon like stools. Reports occasional abdominal cramping. Patient denies any issues with anesthesia in the past. No history of sleep apnea. Not on any anticoagulation medication. Patient reports that last colonoscopy she did not prep very well. Will send script for additional Dulcolax so she can take it before procedure [facility] Medical History Major depressive disorder, recurrent severe without psychotic features Seizure disorder Ingrown left greater toenail Vitamin D deficiency Asthma Allergies Bronchitis Acute bronchitis Left leg numbness Chronic restrictive lung disease Asthma-COPD overlap syndrome Chronic allergic rhinitis Palpitation SARS-CoV-2 positive Generalized anxiety disorder Allergy to vaccine Low back pain Gallbladder polyp Closed left clavicular fracture History of miscarriage Temporal lobe epilepsy Hypercholesterolemia Fibromyalgia Migraine Bile salt-induced diarrhea Insomnia GERD (gastroesophageal reflux disease) Surgical History History of esophagogastroduodenoscopy (EGD) (~2017) History of cholecystectomy Family History Father Cancer Mother CVD (cerebrovascular disease) Sister Breast cancer Family/Other Brain cancer Paternal Uncle Colon cancer Paternal Grandmother Stomach cancer Other Mental health disorder Social History Housing: Apartment Alcohol intake: never Patient Tobacco Use Status: Former Tobacco user Tobacco use type: Cigarette Years Smoked: 1 pack per week stopped 2021 e-Cigarette/Vaping Use: Never Used Second Hand Smoke Exposure: Yes service: No Current occupational status: unemployed Gender identity: Female Cognitive needs: No Hearing needs: No Vision needs: Yes Review of Systems Const Denies weight gain and Denies weight loss ENT Reports no additional complaints, Denies dysphagia and Denies odynophagia Card Reports no additional complaints Resp Reports no additional complaints GI Denies abdominal pain, Denies belching, Denies melena, Denies bloating, Denies change in bowel habits, Denies dysphagia, Denies excessive flatus, Denies dyspepsia, Denies heartburn, Denies diarrhea, Denies loose stools, Denies nausea, Denies odynophagia and Denies vomiting Musc Reports no additional complaints Neuro Reports no additional complaints Psych Reports no additional complaints Endo Reports no additional complaints Physical Exam Const General: healthy appearing, no acute distress and well developed Nutritional Appearance: well nourished Orientation/consciousness: patient oriented x3 Resp Effort & Inspection: normal respiratory effort, able to speak in complete sentences, no tracheal deviation and symmetric chest movement Auscultation: clear to auscultation bilaterally Cardio Rate: regular rate GI Inspection: Yes normal to inspection and No distended Palpation (GI): Soft to palpation, not firm, Tenderness to palpation present (GI) in the RUQ; Vallejo's sign negative, no guarding and No hepatosplenomegaly present Auscultation: normal bowel sounds General: Yes no CVA tenderness Back/Spine/Pelvis Back: no CVA tenderness Skin General skin exam: elasticity normal, turgor normal and dry skin Neuro General: patient oriented x3 Psych Appearance: grossly normal Mental Status: mental status grossly normal Results Reviewed Results Reviewed: GES 1 hour 74% (normal 37%-90%) 2 hours 70% (normal 30%-60%) 3 hours 41% 4 hours 9% (normal 0%-10%) HI/HI gastric emptying study IMPRESSION: Delayed gastric emptying at 2 hours. Otherwise unremarkable examination. Laboratory Tests 03/23/25 06/17/25 11:05 08:18 Hemoglobin A1c % 5.6 Total Bilirubin 0.2 AST 24 ALT 16 Alkaline Phosphatase 90 Lipase 26 Tiss Transglutamin IgA <1.0 Assessment & Plan Assessment & Plan (1) GERD (gastroesophageal reflux disease): Code(s): K21.9 - Gastro-esophageal reflux disease without esophagitis Category: Medical Qualifiers: Esophagitis presence: without esophagitis Qualified Code(s): K21.9 - Gastro-esophageal reflux disease without esophagitis (2) Dysphagia: Code(s): R13.10 - Dysphagia, unspecified Category: Medical Qualifiers: Dysphagia type: pharyngoesophageal phase Qualified Code(s): R13.14 - Dysphagia, pharyngoesophageal phase (3) Gastritis: Code(s): K29.70 - Gastritis, unspecified, without bleeding Category: Medical Qualifiers: Gastritis type: unspecified gastritis Chronicity: chronic Gastritis bleeding: without bleeding Qualified Code(s): K29.50 - Unspecified chronic gastritis without bleeding (4) Bile salt-induced diarrhea: Code(s): K90.89 - Other intestinal malabsorption Category: Medical (5) Abnormal barium swallow: Code(s): R93.3 - Abnormal findings on diagnostic imaging of other parts of digestive tract Category: Medical (6) Colon cancer screening: Code(s): Z12.11 - Encounter for screening for malignant neoplasm of colon Category: Medical Plan Patient will take Reglan in the morning. She will switch that Dexilant and take it at night time instead of in the morning that might also help with symptoms of nausea. Avoid dietary triggers and late night snacking. Staying upright for minimum 3 hours after meals discussed with patient. Patient will take additional Dulcolax before colonoscopy. Stressed the importance of good bowel prep and clear liquid diet day before procedure. I will see patient after endoscopy and colonoscopy. She is agreeable to current plan of care and verbalizes understanding of instructions. She was given the opportunity to ask questions and all questions answered. Thank you for allowing me to participate in her care. Referral to urologist. Patient reports urinary frequency. Urinalysis was normal Orders: Referrals Urology Referral Z87.898 - Personal history of other specified conditions Medications: New metoclopramide HCl (Reglan) 5 mg PO DAILY 30 tabs 3RF R11.0 - Nausea bisacodyl (Dulcolax (bisacodyl)) Start taking 2 tablet every night 7 days before the procedure and 1 day before procedure take 4 tablets at noon time followed by MiraLax prep 10 mg (2 x 5 mg) PO BEDTIME 16 tabs 0RF Z12.11 - Encounter for screening for malignant neoplasm of colon polyethylene glycol 3350 (Miralax) As directed by gastroenterology department at [facility] 238 grams PO ONCE 238 grams 0RF Z12.11 - Encounter for screening for malignant neoplasm of colon Coding Level of Care Code Est Pt Level 4 (82036) Complex EM visit Add On G2211 Diagnoses Gastroesophageal reflux disease without esophagitis K21.9 Esophagitis presence: without esophagitis Pharyngoesophageal dysphagia R13.14 Dysphagia type: pharyngoesophageal phase Chronic gastritis without bleeding, unspecified gastritis type K29.50 Gastritis type: unspecified gastritis Chronicity: chronic Gastritis bleeding: without bleeding Bile salt-induced diarrhea K90.89 Abnormal barium swallow R93.3 Colon cancer screening Z12.11 Time Spent (min) 40 Comment 25 minutes spent with patient and additional 15 minutes spent reviewing her records
[2025-06-23 09:58] VITALS: BP 130/76; PULSE 74; O2SAT 97; BMI 28.5
== END 2025-06-23 10:25 | disposition home or self-care (01) ==
LOC: HO.HGI 09:16
PROVIDERS: PCP Internal Medicine; Visit Provider Nurse Practitioner Family
DX: K21.9 Gastro-esophageal reflux disease without esophagitis (principal); R13.14 Dysphagia, pharyngoesophageal phase; K29.50 Unspecified chronic gastritis without bleeding; K90.89 Other intestinal malabsorption; R93.3 Abnormal findings on diagnostic imaging of other parts of digestive tract
CPT/HCPCS: 99214; G2211

== ENCOUNTER → 2025-06-23 09:15 | Outpatient (BNVA) | payer OTHER, SELFPAY | PROVIDERS: PCP Internal Medicine; Visit Provider Nurse Practitioner Family | DX: K21.9 Gastro-esophageal reflux disease without esophagitis (principal); R13.14 Dysphagia, pharyngoesophageal phase; K29.50 Unspecified chronic gastritis without bleeding; K90.89 Other intestinal malabsorption; R93.3 Abnormal findings on diagnostic imaging of other parts of digestive tract; Z12.11 Encounter for screening for malignant neoplasm of colon | CPT/HCPCS: 99212 ==

== ENCOUNTER 2025-06-27 14:14 | Emergency (ER) | payer OTHER, SELFPAY ==
[2025-06-27 14:55] VITALS: BP 186/66; PULSE 75; RESP 16; TEMP 36.9; O2SAT 95; BMI 28.7
--- NOTE | 2025-06-27 14:55 | ED_ITS ---
HPI - General Adult General Chief complaint: Urogenital-Female Stated complaint: frequent urination Related Data Home Medications ?Medication ?Instructions ?Recorded ?Confirmed ascorbate calcium (vitamin C) 500 1 g PO Q6H 10/21/20 08/24/24 mg tablet cholecalciferol (vitamin D3) 25 25 mcg PO DAILY 08/24/24 mcg (1,000 unit) capsule zinc 50 mg tablet 50 mg PO DAILY 10/21/2006/10 ferrous sulfate 325 mg (65 mg 325 mg PO DAILY 07/25/21 08/24/24 iron) tablet (Feosol) GROWTH STRENGTH RECOVERY 05/20/23 08/24/24 magnesium oxide 400 mg PO DAILY 01/08/2406/10 diclofenac sodium 1 % topical gel topical PRN 08/11/24 08/24/24 ipratropium bromide 21 mcg (0.03 intranasal PRN 08/24/24 %) nasal spray metoclopramide HCl 10 mg tablet 10 mg PO BID-TID PRN 0 06/23/25 Previous Rx's ?Medication ?Instructions ?Recorded calcium carbonate 1,000 mg (2 x 500 mg calcium 11/23/20 (1,250 mg)) PO DAILY #60 caps vitamin B complex (B 1 tab PO DAILY #20 tabs 08/19 01/08 Complex-Vitamin B12 tablet) nebulizers (Aeroneb Go Nebulizer) #1 ea 09/06/23 albuterol sulfate 2.5 mg/3 mL 2.5 mg (3 mL) inhalation QID PRN 11/25/23 (0.083 %) solution for nebulization shortness of breat h or wheezing #180 mL epinephrine 0.3 mg/0.3 mL 0.3 mg (0.3 mL) IM Q10M PRN 04/07/24 injection, auto-injector (EpiPen anaphylaxis 30 days # 2 ea 2-Barrera) amitriptyline 10 mg tablet 20 mg (2 x 10 mg) PO BEDTIM E 90 04/17/24 days #180 tabs clonazepam 1 mg tablet 1 mg PO TID PRN anxiety 30 d ays 04/20/24 #90 tabs dexlansoprazole 60 mg 60 mg PO DAILY #90 caps 06/10 capsule,biphase delayed release (Dexilant) omalizumab 300 mg/2 mL 375 mg (2.5 mL) subcut Q2W # 2 mL 08/24/24 subcutaneous auto-injector (Xolair) azelastine 137 mcg-fluticasone 50 1 spray intranasal B ID #23 grams 11/16/24 mcg/spray nasal spray (Dymista) albuterol sulfate 90 mcg/actuation 1 inh inhalation QI D PRN shortness 11/17/24 aerosol inhaler (Ventolin HFA) of breath or wheezing # 8.5 grams eszopiclone 3 mg tablet (Lunesta) 3 mg PO BEDTIME #30 tabs 12/09/24 trazodone 50 mg tablet 50 mg PO BEDTIME PRN sleep # 90 tabs 12/09/24 cetirizine 10 mg tablet 10 mg PO DAILY allergies #90 tabs 01/19/25 sucralfate 1 gram tablet 1 g PO BEDTIME #30 tabs 050 05/12 budesonide 160 mcg-glycopyr 9 2 inh inhalation BID 30 days #10.7 04/06/25 mcg-formot 4.8 mcg/actuation HFA grams inhaler (Breztri Aerosphere) bisacodyl 5 mg tablet,delayed 10 mg (2 x 5 mg) PO BEDT ANDREWS #16 06/23/25 release (Dulcolax (bisacodyl)) tabs metoclopramide HCl 5 mg tablet 5 mg PO DAILY #30 tabs 06/23/25 (Reglan) polyethylene glycol 3350 17 238 g PO ONCE #238 grams 0 06/23/25 gram/dose oral powder (Miralax) Allergies Allergy/AdvReac Type Severity Reaction Status Date / Time Clindamycin HCl Allergy Unknown esophagus, Verified 06/27/25 14:56 trouble swallowing gabapentin Allergy Unknown Unknown Verified 06/27/25 14:56 ibuprofen Allergy Unknown nausea Verified 06/27/25 14:56 metoclopramide (Reglan) Allergy Unknown jittery Verified 06/27/25 14:56 NSAIDS (Non-Steroidal Allergy Unknown STOMACH Verified 06/27/25 14:56 Anti-Inflamma (NSAIDS UPSET (NON-STEROIDAL ANTI-INFLAMMA) oxycodone (OXYCODONE) Allergy Unknown palpitations, Verified 06/27/25 14:56 hyper pseudoephedrine (Sudafed) Allergy Unknown Unknown Verified 06/27/25 14:56 tramadol (TRAMADOL) Allergy Unknown palpitations, Verified 06/27/25 14:56 hyper vilazodone (Viibryd) Allergy Unknown dry mouth Verified 06/27/25 14:56 and tremors zolpidem (Ambien) Allergy Unknown Unknown Verified 06/23/25 09:50 bupropion (BUPROPION) AdvReac Intermediate HTN, Verified 06/27/25 14:56 BLURRY VISION quetiapine (From Seroquel) AdvReac Intermediate patient Verified 06/27/25 14:56 states levofloxacin AdvReac Unknown weakness, Verified 06/27/25 14:56 nausea/vomiting PMFSH Past Medical History Medical History Major depressive disorder, recurrent severe without psychotic features Seizure disorder Ingrown left greater toenail Vitamin D deficiency Asthma Allergies Bronchitis Acute bronchitis Left leg numbness Chronic restrictive lung disease Asthma-COPD overlap syndrome Chronic allergic rhinitis Palpitation SARS-CoV-2 positive Generalized anxiety disorder Allergy to vaccine Low back pain Gallbladder polyp Closed left clavicular fracture History of miscarriage Temporal lobe epilepsy Hypercholesterolemia Fibromyalgia Migraine Bile salt-induced diarrhea Insomnia GERD (gastroesophageal reflux disease) Surgical History History of esophagogastroduodenoscopy (EGD) (~2017) History of cholecystectomy Family History Family History Father Cancer Mother CVD (cerebrovascular disease) Sister Breast cancer Family/Other Brain cancer Paternal Uncle Colon cancer Paternal Grandmother Stomach cancer Other Mental health disorder Social History Social History Housing: Apartment Alcohol intake: never Patient Tobacco Use Status: Former Tobacco user Tobacco use type: Cigarette Years Smoked: 1 pack per week stopped 2021 e-Cigarette/Vaping Use: Never Used Second Hand Smoke Exposure: Yes Advance Directives: No Advance Directives Information Provided: No Do you have a plan to hurt others: No Plan service: No Current occupational status: unemployed Gender identity: Female Cognitive needs: No Hearing needs: No Vision needs: Yes Physical Exam ED Vital Signs: Vital Signs - 24 hr 06/27/25 14:55 Temperature 98.4 F Pulse Rate 75 Respiratory Rate 16 Blood Pressure 186/66 H Pulse Oximetry 95 Oxygen Delivery Method Room Air BMI result Body Mass Index 28.7 Course Course Course Narrative: Rapid medical examination performed in triage by Annamaria Mazariegos PA-C. Patient is a 55 year old assigned female at presenting to the emergency department with bladder pain and increased urinary frequency and urgency. Patient states that she has been dealing with this for a month, has an appointment with urology but it isn't until April 2026. Detailed physical exam and review of systems are deferred to the vehicle fare collector. Labs ordered. Patient placed back in the waiting room pending room availability and results. Patient left the department without completing treatment. Patient's limited physical exam performed in triage showed a non-toxic individual, walking well and without assistance, no acute distress. Medical Decision Making Lab Data 06/27/25 15:05 06/27/25 15:05 Labs: Lab Results 06/27/25 Range/Units 15:05 WBC 11.1 H (4.8-10.8) X10*3/uL RBC 4.87 (4.20-5.50) X10*6/uL Hgb 15.2 (12.0-16.0) g/dl Hct 45.6 (37.0-47.0) % MCV 93.6 (80.0-98.0) fL MCH 31.2 (27.0-33.0) pg MCHC 33.3 (31.0-35.0) g/dl RDW 13.0 (11.0-16.0) % Plt Count 315 (160-400) X10*3/uL MPV 9.5 (9.4-12.3) fL Immature Gran % (Auto) 0.9 H (0.0-0.4) % Neut % (Auto) 53.3 (45-73) % Lymph % (Auto) 33.5 (20-40) % Sargent % (Auto) 9.4 (2-11) % Eos % (Auto) 2.0 (0-4) % Baso % (Auto) 0.9 (0-2) % Lymph # (Auto) 3.7 (1.2-4.9) X10*3/uL Sargent # (Auto) 1.1 (0.1-1.2) X10*3/uL Eos # (Auto) 0.2 (0.0-0.4) X10*3/uL Baso # (Auto) 0.1 (0.0-0.2) X10*3/uL Abs Immat Gran (auto) 0.10 H (0.00-0.03) X10*3/uL Absolute Neuts (auto) 5.9 (2.0-8.3) x10*3/uL Absolute Nucleated RBC 0.000 (0.0-0.012) X10*3/uL Nucleated RBC % (auto) 0.0 (0.0-0.2) /100WBC Sodium 139 (135-145) mmol/L Potassium 4.1 (3.3-5.1) mmol/L Chloride 107 (96-108) mmol/L Carbon Dioxide 22 (22-29) mmol/L Anion Gap 14 (12-20) BUN 11 (9-16) mg/dL Creatinine 0.76 (0.5-1.4) mg/dL Estim Creat Clear Calc 85.3 Estimated GFR > 60 Random Glucose 96 (60-115) mg/dL Calcium 9.2 (8.4-10.2) mg/dL Total Bilirubin 0.3 (0.0-1.0) mg/dL AST 22 (5-31) U/L ALT 15 (0-31) U/L Alkaline Phosphatase 84 (39-117) U/L Total Protein 7.0 (6.5-8.0) g/dL Albumin 4.4 (3.5-5.0) g/dL Urine Color Yellow Urine Appearance Clear Urine pH 6.5 (5.0-9.0) Ur Specific [place] 1.010 (1.005-1.025) Urine Protein Negative (Neg-Trace) mg/dL Urine Glucose (UA) Negative (Negative) mg/dL Urine Ketones Negative (Negative) mg/dL Urine Blood Negative (Negative) Urine Nitrite Negative (Negative) Ur Leukocyte Esterase Negative (Negative) Discharge Plan Discharge Clinical Impression: Bladder pain Patient Disposition: Left W/O Completing Treatment Prescriptions: No Action albuterol sulfate 2.5 mg /3 mL (0.083 %) solution for nebulization 2.5 mg inhalation QID PRN (Reason: shortness of breath or wheezing) Qty: 180 0RF epinephrine [EpiPen 2-Barrera] 0.3 mg/0.3 mL auto-injector 0.3 mg IM Q10M PRN (Reason: anaphylaxis) 30 Days Qty: 2 6RF Rx Instructions: for 2 doses amitriptyline 10 mg tablet 20 mg PO BEDTIME 90 Days Qty: 180 0RF albuterol sulfate [Ventolin HFA] 90 mcg/actuation HFA aerosol inhaler 1 inh inhalation QID PRN (Reason: shortness of breath or wheezing) Qty: 8.5 0RF cetirizine 10 mg tablet 10 mg PO DAILY Qty: 90 0RF Breztri Aerosphere 160-9-4.8 mcg/actuation HFA aerosol inhaler 2 inh inhalation BID 30 Days Qty: 10.7 11RF cholecalciferol (vitamin D3) 25 mcg (1,000 unit) capsule 25 mcg PO DAILY ascorbate calcium (vitamin C) 500 mg tablet 1 g PO Q6H zinc 50 mg tablet 50 mg PO DAILY ferrous sulfate [Feosol] 325 mg (65 mg iron) tablet 325 mg PO DAILY vitamin B complex [B Complex-Vitamin B12] Tablet 1 tab PO DAILY Qty: 20 0RF (DME) GROWTH STRENGTH RECOVERY 0 .Route .MEDSUPPLY (DME) nebulizers [Aeroneb Go Nebulizer] Misc See Rx Instructions .Route Qty: 1 0RF Rx Instructions: As directed diclofenac sodium 1 % gel topical PRN magnesium oxide 400 mg magnesium capsule 400 mg PO DAILY clonazepam 1 mg tablet 1 mg PO TID PRN (Reason: anxiety) 30 Days Qty: 90 1RF Rx Instructions: Psychiatry and Becky van mariam walker therapist calcium carbonate 500 mg calcium (1,250 mg) capsule 1,000 mg PO DAILY Qty: 60 11RF Xolair 300 mg/2 mL auto-injector 375 mg subcut Q2W Qty: 2 0RF Rx Instructions: requires multiple injection sites; do not exceed 150 mg per injection site dexlansoprazole [Dexilant] 60 mg capsule,biphase delayed releas 60 mg PO DAILY Qty: 90 3RF azelastine-fluticasone [Dymista] 137-50 mcg/spray spray,non-aerosol 1 spray intranasal BID Qty: 23 6RF Rx Instructions: administer into each nostril sucralfate 1 gram tablet 1 g PO BEDTIME Qty: 30 4RF ipratropium bromide 21 mcg (0.03 %) spray,non-aerosol intranasal PRN trazodone 50 mg tablet 50 mg PO BEDTIME PRN (Reason: sleep) Qty: 90 3RF eszopiclone [Lunesta] 3 mg tablet 3 mg PO BEDTIME Qty: 30 0RF metoclopramide HCl 10 mg tablet 10 mg PO BID-TID PRN metoclopramide HCl [Reglan] 5 mg tablet 5 mg PO DAILY Qty: 30 3RF bisacodyl [Dulcolax (bisacodyl)] 5 mg tablet,delayed release (DR/EC) 10 mg PO BEDTIME Qty: 16 0RF Rx Instructions: Start taking 2 tablet every night 7 days before the procedure and 1 day before procedure take 4 tablets at noon time followed by MiraLax prep polyethylene glycol 3350 [Miralax] 17 gram/dose powder 238 g PO ONCE Qty: 238 0RF Rx Instructions: As directed by gastroenterology department at [facility] Discharge Date/Time: 06/27/25 17:35
[2025-06-27 15:18] LABS: MANUAL DIFF FLAG NO
[2025-06-27 15:20] LABS: Appearance Urine Clear; Glucose Urine UA Negative (Negative); PH 6.5 (5.0-9.0); Specific Gravity - Urine 1.010 (1.005-1.025)
[2025-06-27 15:22] LABS: Hematocrit 45.6 % (37.0-47.0); Hemoglobin 15.2 g/dl (12.0-16.0); Imm Gran Abs Auto 0.10 X10*3/uL (0.00-0.03); Imm Gran Pct Auto 0.9 % (0.0-0.4); Lymphocytes Absolute Auto 3.7 X10*3/uL (1.2-4.9); Mean Corpuscular HGB Conc 33.3 g/dl (31.0-35.0); Mean Corpuscular Hemoglobin 31.2 pg (27.0-33.0); Mean Corpuscular Volume 93.6 fL (80.0-98.0); NRBC Abs Auto 0.000 X10*3/uL (0.0-0.012); NRBC Pct Auto 0.0 /100WBC (0.0-0.2); Platelet Count 315 X10*3/uL (160-400); Red Blood Count 4.87 X10*6/uL (4.20-5.50); White Blood Count 11.1 X10*3/uL (4.8-10.8)
[2025-06-27 15:45] LABS: Alanine Aminotransferase 15 U/L (0-31); Albumin Level 4.4 g/dL (3.5-5.0); Alkaline Phosphatase 84 U/L (39-117); Anion Gap 14 (12-20); Aspartate Amino Transferase 22 U/L (5-31); Blood Urea Nitrogen 11 mg/dL (9-16); Calcium 9.2 mg/dL (8.4-10.2); Carbon Dioxide 22 mmol/L (22-29); Chloride 107 mmol/L (96-108); Creatinine Clr Calc Pharmacy 85.3; Estimated Glomerular Filt Rate > 60; Potassium 4.1 mmol/L (3.3-5.1); Sodium 139 mmol/L (135-145); Total Protein 7.0 g/dL (6.5-8.0)
--- OUTSIDE RECORDS SUMMARY | 2025-06-27 17:29 | XMS_ITS | Patient Health Record ---
Author Organization [facility] Address [address] [place] [address] Care Team Providers Care Rail Grinder Name Role Phone Po April SHEEHAN Primary [...] Nausea (787.02) Active confirmed Problem Epigastric pain (25856332) Epigastric pain (789.06) Active confirmed Plan Of Treatment Future Test Test Name Order Date UPPER GI ENDOSCOPY 07/17/2013 Insurance Providers Payer Name Payer Address Payer Phone Subscriber Number Group Number Insured Name Patient Relationship to Insured Coverage Start Date Coverage End Date MEDICARE OF [place] [address] [place] [id number] CLAUDIA MOONEY Self - patient is the insured MEDICAID OF [facility] [address] [place] [address] [phone] [id number] JESICA CLAUDIA Self - patient is the insured Medical (General) History Medical History History ICD Code egd abd pain epigastric pain benign heart murmur-for which no antibio tic prophylaxis are taken. anxiety attacks allergies
--- OUTSIDE RECORDS SUMMARY | 2025-06-27 17:29 | XMS_ITS | Clinical Summary ---
Author Organization [facility] it Address [address] [place] [address] Care Team Providers Care Documentation Nurse Name Role Phone April Vizcaino MD Primary Care Provider [phone] Social History Tobacco Use Types Packs/Day Years [...] RESULTING AGENCY - 06/18/2018 9:05 AM EDT [id number] THINPREP PAP, IMAGED: ATYPICAL SQUAMOUS CELLS OF [...] Recently Relevant to Health Maintenance Care Teams Documentation Nurse Relationship Specialty Start Date End Date April Vizcaino MD [address] [place] [address] [address] [facility] [place] [address] PCP - General Internal Medicine 11/27/16
--- OUTSIDE RECORDS SUMMARY | 2025-06-27 17:29 | XMS_ITS | Clinical Summary ---
Author Organization [facility] Address [address] [facility] [address] [place] [address] Phone Care Team Providers Care Core Driller Name Role Phone Unavailable Primary Care Provider [...] B [place] PART A & B [facility] Additional Source Comments The information contained in this document represents components of the legal health record. It is not the complete legal health record.[facility]
== END 2025-06-27 17:35 | disposition left against medical advice (07) ==
PROVIDERS: Physician Assistant Medical; Emergency Provider Emergency Medicine; PCP Internal Medicine
DX: R35.0 Frequency of micturition (principal); R39.89 Other symptoms and signs involving the genitourinary system; Z79.899 Other long term (current) drug therapy
CPT/HCPCS: 36415; 80053; 81003; 85025; 99282; 99283

== ENCOUNTER 2025-06-28 07:07 | Emergency (ER) | payer OTHER, SELFPAY ==
[2025-06-28 07:10] VITALS: BP 117/56; PULSE 98; RESP 20; TEMP 36.6; O2SAT 95; BMI 28.8
--- NOTE | 2025-06-28 08:42 | ED.FEMALEGU ---
HPI - Female Genitourinary General Chief complaint: Urogenital-Female Stated complaint: Frequent urine, Pain in bladder Time Seen by Provider: 06/28/25 08:23 Source: patient Mode of arrival: ambulatory Limitations: no limitations History of Present Illness HPI Narrative: This is a very pleasant 55 years old the patient presented to the emergency department with a chief complaint of frequency bladder discomfort going to the bathroom all the time. She was seen in the emergency room yesterday she had a UA done she had a CBC and chemistry done yesterday blood tests with normal reviewed by me today. Yesterday in the she left because the wait was long. She has no fever no vomiting no back pain MD elicited complaint: other (Frequency) Onset (ago): month(s) Severity: moderate Female Urogenital Radiation: Non-Radiating Vaginal bleeding: none Urinary symptoms: Urgency and Frequency Exacerbating factors: none Relieving factors: none Associated symptoms: denies other symptoms Related Data Home Medications ?Medication ?Instructions ?Recorded ?Confirmed ascorbate calcium (vitamin C) 500 1 g PO Q6H 10/21/20 08/24/24 mg tablet cholecalciferol (vitamin D3) 25 25 mcg PO DAILY 10/21/20 08/24/24 mcg (1,000 unit) capsule zinc 50 mg tablet 50 mg PO DAILY 10/21/20 08/24/24 ferrous sulfate 325 mg (65 mg 325 mg PO DAILY 07/25/21 08/24/24 iron) tablet (Feosol) GROWTH STRENGTH RECOVERY 05/20/23 08/24/24 magnesium oxide 400 mg PO DAILY 01/08/24 08/24/24 diclofenac sodium 1 % topical gel topical PRN 08/11/24 08/24/24 ipratropium bromide 21 mcg (0.03 intranasal PRN 08/11/24 08/24/24 %) nasal spray metoclopramide HCl 10 mg tablet 10 mg PO BID-TID PRN 06/23/25 Previous Rx's ?Medication ?Instructions ?Recorded calcium carbonate 1,000 mg (2 x 500 mg calcium 11/23/20 (1,250 mg)) PO DAILY #60 caps vitamin B complex (B 1 tab PO DAILY #20 tabs 09/08/21 Complex-Vitamin B12 tablet) nebulizers (Aeroneb Go Nebulizer) #1 ea 09/06/23 albuterol sulfate 2.5 mg/3 mL 2.5 mg (3 mL) inhalation QID PRN 11/25/23 (0.083 %) solution for nebulization shortness of breath or wheezing #180 mL epinephrine 0.3 mg/0.3 mL 0.3 mg (0.3 mL) IM Q10M PRN 04/07/24 injection, auto-injector (EpiPen anaphylaxis 30 days #2 ea 2-Barrera) amitriptyline 10 mg tablet 20 mg (2 x 10 mg) PO BEDTIME 90 04/17/24 days #180 tabs clonazepam 1 mg tablet 1 mg PO TID PRN anxiety 30 days 04/20/24 #90 tabs dexlansoprazole 60 mg 60 mg PO DAILY #90 caps 08/24/24 capsule,biphase delayed release (Dexilant) omalizumab 300 mg/2 mL 375 mg (2.5 mL) subcut Q2W #2 mL 08/24/24 subcutaneous auto-injector (Xolair) azelastine 137 mcg-fluticasone 50 1 spray intranasal BID #23 grams 11/16/24 mcg/spray nasal spray (Dymista) albuterol sulfate 90 mcg/actuation 1 inh inhalation QID PRN shortness 11/17/24 aerosol inhaler (Ventolin HFA) of breath or wheezing #8.5 grams eszopiclone 3 mg tablet (Lunesta) 3 mg PO BEDTIME #30 tabs 12/09/24 trazodone 50 mg tablet 50 mg PO BEDTIME PRN sleep #90 tabs 12/09/24 cetirizine 10 mg tablet 10 mg PO DAILY allergies #90 tabs 01/19/25 sucralfate 1 gram tablet 1 g PO BEDTIME #30 tabs 03/23/25 budesonide 160 mcg-glycopyr 9 2 inh inhalation BID 30 days #10.7 04/06/25 mcg-formot 4.8 mcg/actuation HFA grams inhaler (Breztri Aerosphere) bisacodyl 5 mg tablet,delayed 10 mg (2 x 5 mg) PO BEDTIME #16 06/23/25 release (Dulcolax (bisacodyl)) tabs metoclopramide HCl 5 mg tablet 5 mg PO DAILY #30 tabs 06/23/25 (Reglan) polyethylene glycol 3350 17 238 g PO ONCE #238 grams 06/23/25 gram/dose oral powder (Miralax) oxybutynin chloride 5 mg 5 mg PO DAILY #7 tabs 06/28/25 tablet,extended release 24 hr Allergies Allergy/AdvReac Type Severity Reaction Status Date / Time Clindamycin HCl Allergy Unknown esophagus, Verified 06/28/25 07:11 trouble swallowing gabapentin Allergy Unknown Unknown Verified 06/28/25 07:11 ibuprofen Allergy Unknown nausea Verified 06/28/25 07:11 metoclopramide (Reglan) Allergy Unknown jittery Verified 06/28/25 07:11 NSAIDS (Non-Steroidal Allergy Unknown STOMACH Verified 06/28/25 07:11 Anti-Inflamma (NSAIDS UPSET (NON-STEROIDAL ANTI-INFLAMMA) oxycodone (OXYCODONE) Allergy Unknown palpitations, Verified 06/28/25 07:11 hyper pseudoephedrine (Sudafed) Allergy Unknown Unknown Verified 06/28/25 07:11 tramadol (TRAMADOL) Allergy Unknown palpitations, Verified 06/28/25 07:11 hyper vilazodone (Viibryd) Allergy Unknown dry mouth Verified 06/28/25 07:11 and tremors zolpidem (Ambien) Allergy Unknown Unknown Verified 06/28/25 07:11 bupropion (BUPROPION) AdvReac Intermediate HTN, Verified 06/28/25 07:11 BLURRY VISION quetiapine (From Seroquel) AdvReac Intermediate patient Verified 06/28/25 07:11 states levofloxacin AdvReac Unknown weakness, Verified 06/28/25 07:11 nausea/vomiting Review of Systems Constitutional: Constitutional: Reports no additional constitutional complaints Cardiovascular: Cardiovascular: Reports no additional cardiovascular complaints Genitourinary: Genitourinary: Reports as per [facility] Past Medical History Attestation statement: The following information was validated with the patient. Medical History Major depressive disorder, recurrent severe without psychotic features Seizure disorder Ingrown left greater toenail Vitamin D deficiency Asthma Allergies Bronchitis Acute bronchitis Left leg numbness Chronic restrictive lung disease Asthma-COPD overlap syndrome Chronic allergic rhinitis Palpitation SARS-CoV-2 positive Generalized anxiety disorder Allergy to vaccine Low back pain Gallbladder polyp Closed left clavicular fracture History of miscarriage Temporal lobe epilepsy Hypercholesterolemia Fibromyalgia Migraine Bile salt-induced diarrhea Insomnia GERD (gastroesophageal reflux disease) Surgical History History of esophagogastroduodenoscopy (EGD) (~2017) History of cholecystectomy Family History Family History Father Cancer Mother CVD (cerebrovascular disease) Sister Breast cancer Family/Other Brain cancer Paternal Uncle Colon cancer Paternal Grandmother Stomach cancer Other Mental health disorder Social History Social History Housing: Apartment Alcohol intake: never Patient Tobacco Use Status: Former Tobacco user Tobacco use type: Cigarette Years Smoked: 1 pack per week stopped 2021 e-Cigarette/Vaping Use: Never Used Second Hand Smoke Exposure: Yes Advance Directives: No Advance Directives Information Provided: No Do you have a plan to hurt others: No Plan Patient : No service: No Current occupational status: unemployed Gender identity: Female Cognitive needs: No Hearing needs: No Vision needs: Yes Physical Exam Exam: Exam: No acute distress looks well she is not toxic-appearing sitting in the stretcher Vital Signs: Vital Signs: Last Vital Signs Temp 97.0 F 06/28/25 08:58 Pulse 77 06/28/25 08:58 Resp 16 06/28/25 08:58 BP 156/82 H 06/28/25 08:58 Pulse Ox 94 06/28/25 08:58 O2 Del Method Room Air 06/28/25 08:58 BMI result Body Mass Index 28.8 She has stable vital signs afebrile normotensive she is not tachycardic Const: General: cooperative Nutritional Appearance: well nourished Orientation/consciousness: patient oriented x3 HEENT: Head: Yes normal to inspection Ears: hearing grossly normal bilaterally General nose exam: Normal external nose present Face and sinus: Yes normal facial exam Neck: Neck: Yes normal visual inspection and Yes full ROM Resp: Effort & Inspection: normal respiratory effort Auscultation: clear to auscultation bilaterally Cardio: Jugular venous distension: no JVD Rate: regular rate Rhythm: regular rhythm GI: Inspection: Yes normal to inspection Palpation (GI): Soft to palpation, not firm and nontender Percussion: Yes normal to percussion Auscultation: normal bowel sounds Skin: General skin exam: no rashes or lesions noted Lesions: no lesions Rashes: no rashes Neuro: General: patient oriented x3 Extrem: General: Yes normal to inspection Right upper extremity: normal to inspection Medical Decision Making Medical Decision Making [facility] Narrative: Patient is here with months of frequency urgency lab work done yesterday in the emergency room normal ,UA done in the emergency department yesterday normal . I do not think we need to do any more blood work I do not think we need any more UA I think she can be discharged home clinically seems to be symptoms of overactive bladder. I discussed with the patient we could give a trial of oxybutynin. She has a referral to the Urology already by the PCP. I asked her to call again the Urology office and try to move the appointment. Differential Diagnosis Differential Diagnoses: The differential diagnosis associated with the presentation includes Overactive bladder/urinary tract infection/incontinence Admission/Observation Consideration of admission/observation: Escalation of care including admission/observation considered Lab Data I reviewed the labs done yesterday the UA done yesterday Discharge Plan Discharge Clinical Impression: Overactive bladder Patient Disposition: Home, Self-Care Instructions: Overactive Bladder (DC) Additional Instructions: Call the Urology tried to move your appointment, there no evidence of infection in the urine there is no blood in the urine your kidney function test is normal. I will send a prescription for Oxybutin as trial for about a week Prescriptions: New oxybutynin chloride 5 mg tablet extended release 24hr 5 mg PO DAILY Qty: 7 0RF No Action albuterol sulfate 2.5 mg /3 mL (0.083 %) solution for nebulization 2.5 mg inhalation QID PRN (Reason: shortness of breath or wheezing) Qty: 180 0RF epinephrine [EpiPen 2-Barrera] 0.3 mg/0.3 mL auto-injector 0.3 mg IM Q10M PRN (Reason: anaphylaxis) 30 Days Qty: 2 6RF Rx Instructions: for 2 doses amitriptyline 10 mg tablet 20 mg PO BEDTIME 90 Days Qty: 180 0RF albuterol sulfate [Ventolin HFA] 90 mcg/actuation HFA aerosol inhaler 1 inh inhalation QID PRN (Reason: shortness of breath or wheezing) Qty: 8.5 0RF cetirizine 10 mg tablet 10 mg PO DAILY Qty: 90 0RF Zacharytri Aerosphere 160-9-4.8 mcg/actuation HFA aerosol inhaler 2 inh inhalation BID 30 Days Qty: 10.7 11RF cholecalciferol (vitamin D3) 25 mcg (1,000 unit) capsule 25 mcg PO DAILY ascorbate calcium (vitamin C) 500 mg tablet 1 g PO Q6H zinc 50 mg tablet 50 mg PO DAILY ferrous sulfate [Feosol] 325 mg (65 mg iron) tablet 325 mg PO DAILY vitamin B complex [B Complex-Vitamin B12] Tablet 1 tab PO DAILY Qty: 20 0RF (DME) GROWTH STRENGTH RECOVERY 0 .Route .MEDSUPPLY (DME) nebulizers [Aeroneb Go Nebulizer] Misc See Rx Instructions .Route Qty: 1 0RF Rx Instructions: As directed diclofenac sodium 1 % gel topical PRN magnesium oxide 400 mg magnesium capsule 400 mg PO DAILY clonazepam 1 mg tablet 1 mg PO TID PRN (Reason: anxiety) 30 Days Qty: 90 1RF Rx Instructions: Psychiatry and Becky juarez therapist calcium carbonate 500 mg calcium (1,250 mg) capsule 1,000 mg PO DAILY Qty: 60 11RF Xolair 300 mg/2 mL auto-injector 375 mg subcut Q2W Qty: 2 0RF Rx Instructions: requires multiple injection sites; do not exceed 150 mg per injection site dexlansoprazole [Dexilant] 60 mg capsule,biphase delayed releas 60 mg PO DAILY Qty: 90 3RF azelastine-fluticasone [Dymista] 137-50 mcg/spray spray,non-aerosol 1 spray intranasal BID Qty: 23 6RF Rx Instructions: administer into each nostril sucralfate 1 gram tablet 1 g PO BEDTIME Qty: 30 4RF ipratropium bromide 21 mcg (0.03 %) spray,non-aerosol intranasal PRN trazodone 50 mg tablet 50 mg PO BEDTIME PRN (Reason: sleep) Qty: 90 3RF eszopiclone [Lunesta] 3 mg tablet 3 mg PO BEDTIME Qty: 30 0RF metoclopramide HCl 10 mg tablet 10 mg PO BID-TID PRN metoclopramide HCl [Reglan] 5 mg tablet 5 mg PO DAILY Qty: 30 3RF bisacodyl [Dulcolax (bisacodyl)] 5 mg tablet,delayed release (DR/EC) 10 mg PO BEDTIME Qty: 16 0RF Rx Instructions: Start taking 2 tablet every night 7 days before the procedure and 1 day before procedure take 4 tablets at noon time followed by MiraLax prep polyethylene glycol 3350 [Miralax] 17 gram/dose powder 238 g PO ONCE Qty: 238 0RF Rx Instructions: As directed by gastroenterology department at [facility] Referrals: Lane Dunham MD [Physician, Urology] - 07/12/25 Interventions: ED Discharge Assessment Last Done: 06/28/25 08:58 Discharge Date/Time: 06/28/25 09:01 Print Language: Polish
[2025-06-28 08:45] VITALS: BP 156/82; PULSE 77; RESP 16; TEMP 36.1; O2SAT 94
--- OUTSIDE RECORDS SUMMARY | 2025-06-28 08:45 | XMS_ITS | Clinical Summary ---
Author Organization [facility] Address [address] [facility] [address] [place] [phone] Phone Care Team Providers Care Student Services Vice President Name Role Phone Unavailable Primary Care Provider [...] B [place] PART A & B [facility] Additional Source Comments The information contained in this document represents components of the legal health record. It is not the complete legal health record.[facility]
--- OUTSIDE RECORDS SUMMARY | 2025-06-28 08:45 | XMS_ITS | Clinical Summary ---
Author Organization [facility] it Address [address] [place] [address] Care Team Providers Care Drone Software Development Engineer Name Role Phone April Vizcaino MD Primary Care Provider [phone] Social History Tobacco Use Types Packs/Day Years [...] RESULTING AGENCY - 06/18/2018 9:05 AM EDT [id number] THINPREP PAP, IMAGED: ATYPICAL SQUAMOUS CELLS OF [...] Recently Relevant to Health Maintenance Care Teams Drone Software Development Engineer Relationship Specialty Start Date End Date April Vizcaino MD [address] [place] [address] [address] [facility] [place] [address] PCP - General Internal Medicine 11/27/16
--- OUTSIDE RECORDS SUMMARY | 2025-06-28 08:46 | XMS_ITS | Patient Health Record ---
Author Organization [facility] Address [address] [place] [address] Care Team Providers Care Materials Specialist Name Role Phone Po April SHEEHAN Primary [...] Status W/U Status Risk Notes Problem Nausea (300630114) Nausea (787.02) Active confirmed Problem Epigastric pain (40025276) Epigastric pain (789.06) Active confirmed Plan Of Treatment Future Test Test Name Order Date UPPER GI ENDOSCOPY 07/17/2013 Insurance Providers Payer Name Payer Address Payer Phone Subscriber Number Group Number Insured Name Patient Relationship to Insured Coverage Start Date Coverage End Date MEDICARE OF [place] [address] [place] [address] [id number] JESICA CLAUDIA Self - patient is the insured MEDICAID OF [facility] [address] [place] [address] [id number] JESICACLAUDIA LOPEZ Self - patient is the insured Medical (General) History Medical History History ICD Code egd abd pain epigastric pain benign heart murmur-for which no antibio tic prophylaxis are taken. anxiety attacks allergies
[2025-06-28 08:58] VITALS: BP 156/82; PULSE 77; RESP 16; TEMP 36.1; O2SAT 94
== END 2025-06-28 09:01 | disposition home or self-care (01) ==
PROVIDERS: Emergency Provider Emergency Medicine; PCP Internal Medicine
DX: N32.81 Overactive bladder (principal); J44.9 Chronic obstructive pulmonary disease, unspecified; M79.7 Fibromyalgia; Z79.899 Other long term (current) drug therapy
CPT/HCPCS: 99283; 99284

== ENCOUNTER 2025-07-08 07:35 | Day surgery (SDC) | payer OTHER, SELFPAY ==
--- OUTSIDE RECORDS SUMMARY | 2025-06-15 16:25 | XMS_ITS | Clinical Summary ---
Author Organization [facility] Address [address] [facility] [address] [place] [address] Phone Care Team Providers Care Dry Plasterer Name Role Phone Unavailable Primary Care Provider Unavailabl e Social History Tobacco Use Types Packs/Day Years Used Date Smoking Tobacco: Never Assessed Education Answer Date Recorded Are you interested in more education? Not on ange e 03/14/2023 Are you concerned about learning? Not on file 03/14/2023 No 03/14/2023 No 03/14/2023 Digital Access Answer Date Recorded No 04/15/2023 No 04/15/2023 No 04/15/2023 Reliable internet access at home? Not on file 04/15/2023 Device with a working camera? Not on file Comments Unknown Sex and Gender Information Value Date Recorded Sex Assigned at Not on file Legal Sex Female 7:35 PM EST Gender Identity Not on file Sexual Orientation Not on file Plan of Treatment Not on file Medical Devices Not on file Insurance MEDICARE PART A & [place] & B [facility] Additional Source Comments The information contained in this document represents components of the legal health record. It is not the complete legal health record.[facility]
--- OUTSIDE RECORDS SUMMARY | 2025-06-15 16:25 | XMS_ITS | Clinical Summary ---
Author Organization [facility] Address [address] [place] [address] Care Team Providers Care Studio Designer Name Role Phone April Vizcaino MD Primary Care Provider Social History Tobacco Use Types Packs/Day [...] 2) 2022 Colorectal Cancer Screening: Colonoscopy 10/30/2022 HIV Screening 10/30/2022 Hepatitis C Screening 10/30/2022 Social Influencers of Health Screening 10/30/2022 COVID-19 Vaccine (1 - 2023-2 5 season) 2024 DTaP,Tdap,and Td Vaccines (2 - Td or Tdap) 09/17/2024 09/17/2014 Depression Screening 11/18/2024 Influenza Vaccine (#1) 2025 09/17/2014 HIB Vaccines Aged Out No longer [...] RESULTING AGENCY - 06/18/2018 9:05 AM EDT [id number] THINPREP PAP, IMAGED: ATYPICAL SQUAMOUS CELLS OF UNDETERMINED SIGNIFICANCE (ASCUS) . RESULT OF APTIMA HIGH RISK HPV ASSAY: POSITIVE (SEROTYPES 16,18,31,33,35,39,45,51,52,56,58,59,66,68) MIKKI LARA(ASCP) (CASE SCREENED 06 16 2018) DENNIS VANCE M.D., PATHOLOGIST (CASE ELECTRONICALLY SIGNED 06 16 2018) ADEQUACY: SATISFACTORY. ENDOCERVICAL/TRANSFORMATION ZONE COMPONENT PRESENT. SOURCE: THINPREP PAP HPV ANY DX: REFLEX 16 AND 18, CERVICAL, IMAGED: CLINICAL INFORMATION: [...] reviewed with CAD and compared to previous. The breasts are composed of fatty and fibroglandular tissue. No suspicious mass, architectural distortion or suspicious calcifications [...] Recently Relevant to Health Maintenance Care Teams Studio Designer Relationship Specialty Start Date End Date Aprli Vizcaino MD [address] [place] [address] [address] [facility] [place] [address] PCP - General Internal Medicine 11/27/16
--- OUTSIDE RECORDS SUMMARY | 2025-06-15 16:26 | XMS_ITS | Data Portability ---
Author Organization [employer], [facility] [employer] [facility] Address [address] [place] [address] Care Team Providers Care Rn Private Duty Name Role Phone HIM CCA OTHER Assessment Encounter Date Assessment Date Assessment LastModified by Organization Details LastModified Time 12/18/2024 12/18/2024 I provided real -time medical direction via phone for this encounter and was available for additional phone-based assistance as needed. I have reviewed and agree with the Assessment and Plan as documented by the Product Support Consultant. Patient given the opportunity to ask questions. Our service contacted for an assessment of: Nasal congestion As per above, patient states she has a sinus infection. States that she has pressure in the sinuses on both sides. Also complaining of a mild headache. Initially stated she was not taking anything wcap-wyr-ygwwwqc but then stated she was taking Robitussin twice a day and Mucinex every 4 hours without relief. Denies use a nasal decongestant specifically. Has history of asthma and has been seen by this service as well as being followed by Pulmonary. Using her steroid inhaler twice a day. Review of records reveals 7 antibiotic prescriptions over the course of the past year. Per sales product specialist on the scene, vital signs are stable [...] symptoms. Encouraged follow-up with PCP and with social studies teacher. Ativan abundance of caution prescribed doxycycline for [...] Assessment and Plan as documented by the Product Support Consultant. Patient given the opportunity to ask questions. Our service contacted for an assessment of: Nasal congestion As per above, patient states she has a sinus infection. States that she has pressure in the sinuses on both sides. Also complaining of a mild headache. Initially stated she was not taking anything seon-gwl-thybjuh but then stated she was taking Robitussin twice a day and Mucinex every 4 hours without relief. Denies use a nasal decongestant specifically. Has history of asthma and has been seen by this service as well as being followed by Pulmonary. Using her steroid inhaler twice a day. Review of records reveals 7 antibiotic prescriptions over the course of the past year. Per sales product specialist on the scene, vital signs are stable [...] symptoms. Encouraged follow-up with PCP and with social studies teacher. Ativan abundance of caution prescribed doxycycline for [...] particularly fever chills lightheadedness altered mental status [email or web address] Not available 01/24/2025 14:37:31 04/05/2025 04/05/2025 I provided real -time medical direction via phone for this encounter and was available for additional phone-based assistance as needed. I have reviewed and agree with the Assessment and Plan as documented by the Product Support Consultant. Patient given the opportunity to ask questions. Our service contacted for an assessment of: asthma symptoms As per above, patient with approximately several days of asthma excerbation symptoms. Denies fever or chills. Denies chest pain, shortness of breath, dyspnea on exertion. Positive nasal congestion and dry cough. Of note the patient had an episode where she bumped her head and became very dizzy after using her nebulizer today. She did not fall nor sustain any significant trauma from this event. Per sales product specialist on the scene, vital signs are stable and patient is afebrile. No wheezing heard on exam. COVID and Flu are both negative. No increased work of breathing and no distress. Impression: Asthma Plan: Continue with mczg-afu-hlimpnj medications to control symptoms. continue to use nebulizers. Patient did not appear to need prednisone. We gave a Z-Barrera. The 1st dose of the Z-Barrera was administered in the field by my sales product specialist colleague. The remainder called into the patient's pharmacy. Red flags discussed as to when to seek a higher level care. Also discussed importance of remaining seated during nebulizers and afterwards for a period of time until she feels safe and stable to move about. Allergies: Reviewed PCP f/u: We discussed the [...] or worsening serious symptoms, particularly fever chills [email or web address] Not available 04/05/2025 20:52:51 05/04/2025 05/04/2025 I provided real -time medical direction via phone for this encounter, and was available for additional phone based assistance as needed. I have reviewed and agree with the Assessment and Plan as documented by the Product Support Consultant. We discussed the diagnostic uncertainty of home visits and the risk associated with this. In this case the patient and I felt this to be an acceptable and reasonable amount of risk given the benefit of avoiding an ED visit. The patient given the opportunity to ask questions. Advised if develops CP/severe SOB/turning blue/uncontrolled n/v/d AMS/ syncope/ hi fever unresponsive to APAP/ibuprofen/to call 911- verbalized understanding of instruction [email or web address] Not available 05/04/2025 16:20:29 06/05/2025 06/05/2025 As noted, we chante e called to see this patient regarding concerns of a UTI. Evaluation in the field was performed by my sales product specialist colleague, as noted above, I provided real-time direction and supervision for this visit. The evaluation revealed The patient is 55 year old female with a past medical history of. Chronic Obstructive Pulmonary Disease (COPD), Asthma who presents with urgency and frequency of urination. This will be going on and off for about a month. She denies any flank pain. No nausea, vomiting or diarrhea. She's felt like this in the past when she has a urinary tract infection. No chest pain, no shortness of breath, no burning with urination. No fever or shaking chills. We did a urinalysis and sent to urine culture. Her urinalysis does not show any signs of infection. We will wait to see the results of the urine culture and then start treatment. If the patient has continued symptoms, she may Need to be seen by a urologist for further evaluation. PE no abdominal tenderness, no distress Impression: Urinary frequency Plan: 1) UA shows no signs of infection 2) urine culture sent Primary care, consider f/u on urine cx Disposition: stay at home We discussed the diagnostic uncertainty of home visits and the risk associated with this. In this case, the patient and I felt this to be an acceptable and reasonable amount of risk given the benefit of avoiding an ED visit. We discussed the need to seek care urgently/emergentl y in the setting of any new or worsening serious symptoms, particularly fever, worsening pain or chest pain [email or web address] Not available 06/05/2025 19:06:41 Plan of Treatment Reminders Order Date Submit Date Provider Last Modified By Organization Details Last Modified Time Details Appointments None recorded. Lab urinalysis, dipstick 2024 025 [facility], [address] [place] [address], [id number] 5 20:21:06 culture, urine 2024 025 [place] [facility] (Centralized Electronic Ordering - All Locations), Patient Can Go To The Location Of Their Choice, [id number] 5 06:05:38 rapid flu (A+B) 2024 025 [email or web address] 0 [facility], [address] [place] [address], [id number] 5 15:13:34 rapid SARS CoV 2 Ag, QL IA, respiratory specimen 2024 025 [email or web address] 0 [facility], [address] [place] [address], [id number] 5 15:13:34 rapid SARS CoV 2 Ag, QL IA, respiratory specimen 2024 025 [facility], [address] [place] [address], [id number] 5 19:29:19 rapid flu (A+B) 2024 025 [facility], [address] [place] [address], [id number] 5 19:28:47 Referral None recorded. Procedures None recorded. Surgeries None recorded. Imaging None recorded. Medication Orders amoxicillin 875 mg-potassiu m clavulanate 125 mg tablet 2024 025 [email or web address] 0 [facility] #06210, [address], [place], [id number], 5 15:13:32 amoxicillin 875 mg-potassiu m clavulanate 125 mg tablet 2024 025 [email or web address] 0 [facility], [address], [place], [id number], 5 15:13:32 benzonatate 200 mg capsule 2024 025 [facility] #22018, [address], [place], [id number], 5 15:14:53 Zithromax 500 mg tablet [address] [facility]53686, [address], [place], [id number], 5 19:12:20 Zithromax 250 mg tablet 2024 025 [facility] #74823, [address], [place], [id number], 5 19:12:26 doxycycline hyclate 100 mg capsule 2024 025 [facility] #31612, [address], [place], [id number], 5 14:37:32 doxycycline hyclate 100 mg capsule [address] [facility] #70057, [address], [place], [id number], 5 14:37:25 doxycycline hyclate 100 mg capsule [address] [facility] #78795, [address], [place], [id number], 5 19:38:12 doxycycline hyclate 100 mg capsule [address] [facility] #34974, [address], [place], [id number], 5 19:38:20 Patient TargetsNo targets recorded. Patient InstructionsNo instructions recorded. Reason for Referral None Reported. Results Created Date Observation Date Name Description Value Unit Range Abnormal Flag Note LastModifiedBy Organization Detail LastModifiedTime 04/05/2004/05/2025 rapid SARS CoV 2 Ag, QL IA, respi rator y speci men rapid SARS CoV 2 Ag, QL IA, respiratory specimen negati ve Not Available Main - [facility] ed [address] [place] [address], [id number] 04/05/2025 19:11:12 04/05/20 25 04/05/2025 rapid flu (A+B) Flu negati ve Not Available Main - [facility] ed [address] [place] [address], [id number] 04/05/2025 19:11:13 05/04/20 25 05/04/2025 rapid SARS CoV 2 Ag, QL IA, respi rator y speci men rapid SARS CoV 2 Ag, QL IA, respiratory specimen negati ve Not Available [facility] [address], [id number] 05/04/2025 15:10:02 05/04/20 25 05/04/2025 rapid flu (A+B) Flu negati ve Not Available [facility] [address], [id number] 05/04/2025 15:09:53 06/05/20 25 06/06/2025 URINE CULTU RE, ROUTI NE urine culture, routine Final report Not Available [facility] ([facility]) [address] [place], [address], 06/07/2025 06:05:38 06/05/20 25 06/06/2025 URINE CULTU RE, ROUTI NE result 1 COMMEN T Mixed uroge nital lacy 10,00 0-25, 000 colon y formi ng units per mL Not Available [facility] ([facility]) [address] [place], [address], 06/07/2025 06:05:38 Result Notes None recorded. Medical Equipment None Reported. Allergies Allergen ID Allergen Name Allergen Category Reaction Reaction Severity Criticality Documentation Date Start Date Code Code System Note Provider Name and Address Organization Details Recorded Time 45389 oxycodone medicatio n Not available Not available Not available 10/12/2024 7804 RxNorm Not Available [facility] - production 4 20:09:51 34827 Sudafed medicatio n Not available Not available Not available 10/12/202427435 2 RxNorm Not Available [facility] - [facility] 4 20:09:51 69279 acetamino phen / dextromet horphan / doxylamin e / pseudoeph edrine medicatio n Not available Not available Not available 01/24/2025 10482 4 RxNorm Not Available [facility] 5 12:16:23 22033 Product containin g penicilli n (product) medicatio n Not available Not available Not available 06/05/2025 82552 8001 SNOMED Not Available [facility] 5 18:56:43 Medications Name Sig Start Date Stop Date [...] TAKE 1 TABLET BY MOUTH DAILY FOR ALLERGIES active Not Available Not Available No t Available azithromyci n 250 mg tablet TAKE 1 TABLET (250 MG) BY ORAL ROUTE ONCE DAILY FOR 4 DAYS active Not Available Not Available No t Available Lidocaine Viscous 2 % mucosal solution active Not Available Not Available Not Available fluconazole 150 mg tablet TAKE 1 TABLET BY MOUTH EVERY DAY active Not Available Not Available No t Available benzonatate 200 mg capsule Take 1 capsule 3 times a day by oral route. 2024 active Not Available Not Available Not Avai lable sucralfate 1 gram tablet TAKE 1 TABLET BY MOUTH AT [...] TONGUE EVERY 8 HOURS NEEDED FOR NAUSEA active Not Available Not [...] 1 TABLET BY MOUTH EVERY 12 HOURS AFTER MEALS active Not Available Not Available No t Available eszopiclone 3 mg tablet TAKE 1 [...] Not Available Not Available No t Available Rupesh [employer] 160 mcg-9mcg-4. 8mcg/actuat ion HFA aerosol inhaler INHALE 2 PUFFS BY MOUTH TWICE DAILY active Not Available Not Available No t Available Vitals Date Recorded Heart rate Respiratory rate Body weight Body height Body temperature Oxygen saturation Oxygen saturation in Arterial blood by Pulse oximetry Systolic And Diastolic Provider Name and Address Organization Details Last Updated DateTime 5 80 /min 20 /min 22257.8 8 g 162.56 cm 98.1 [degF] 96 % 96 % 152/73 mm[Hg] Not Available [facility] - production 5 17:21:21 Date Recorded Respiratory rate Heart rate Oxygen saturation Oxygen saturation in Arterial blood by Pulse oximetry Body temperature Systolic And Diastolic Provider Name and Address Organization Details Last Updated DateTime 5 16 /min 90 /min 96 % 96 % 98.2 [degF] 123/82 mm[Hg] Not Available [facility] - production 5 14:28:23 Date Recorded Respiratory rate Heart rate Body temperature Oxygen saturation Oxygen saturation in Arterial blood by Pulse oximetry Systolic And Diastolic Provider Name and Address Organization Details Last Updated DateTime 5 16 /min 90 /min 97.3 [degF] 96 % 96 % 134/87 mm[Hg] Not Available [facility] - production 5 19:09:59 Date Recorded Heart rate Body temperature Respiratory rate Oxygen saturation Oxygen saturation in Arterial blood by Pulse oximetry Systolic And Diastolic Provider Name and Address Organization Details Last Updated DateTime 5 77 /min 97.7 [degF] 16 /min 95 % 95 % 142/85 mm[Hg] Not Available [facility] - production 5 15:05:34 Date Recorded Respiratory rate Heart rate Body temperature Oxygen saturation Oxygen saturation in Arterial blood by Pulse oximetry Systolic And Diastolic Provider Name and Address Organization Details Last Updated DateTime 5 18 /min 91 /min 98.8 [degF] 98 % 98 % 138/93 mm[Hg] Not Available [facility] - production 18:45:25 Social History None recorded. Functional Status None recorded. Mental Status None recorded. Family History Nothing Reported. Medical History No medical history recorded. Gynecological HistoryNo gynecological history recorded. Obstetrics History GPAL:G 0 P 0 0 0 0 Past Encounters Encounter ID Performer Location Encounter Start Date Encounter Closed Date Diagnosis/Indication Diagnosis SNOMED-CT Code Diagnosis ICD10 Code Diagnosis Note [id number] Sonia Good MD [facility] - [facility] [address] [place] [address] 10/12/2024 21:00:35 10/12/2024 23:38:11 Acute exacerbation of chronic obstructive pulmonary disease 519729278 J44.1 Candidiasis of vagina 72 932391 B37.31 [id number] [facility] [address] [place], [place] [address] 12/18/2024 17:21:19 12/22/2024 16:07:56 Exacerbation of intermittent asthma 802906365 J45.21 Congestion of nasal sinus 51903262 R09.81 [id number] [facility] [address] [place] [address] 01/24/2025 14:28:21 01/24/2025 19:29:04 Exacerbation of intermittent asthma 551979799 J45.21 [id number] Brittany Lopez MD [facility] - [address] [address] 04/05/2025 19:09:46 04/05/2025 21:59:26 Moderate asthma 793935458 J45.909 [id number] Tona Hogue MD Main-[facility] [address] [address] 05/04/2025 15:05:29 05/04/2025 22:30:15 Recurrent acute pansinusitis 9935935253 1079879 J01.41 HAS HAD TESSALON w/ good results- no hx ckd-aware it may not be covered/ad vised medic to discuss GoodRx card with patient to help defray the cost if it is not covered Patient is already doing Neti pot Flonase loratadine advised may apply warm compresses to her sinuses. Azithromyc in helped last time but then it reoccurred so we will place on 10 days of Augmentin. Patient has an asthma and air quality specialist advised to call him today or tomorrow and also discuss whether she needs to see ENT with [place] specialist . [place] [id number] DENNIS WALTERS MD [facility] [address] [place] [address] 06/05/2025 18:45:21 06/06/2025 21:56:34 Urinary system finding 048236345 R39.9 Urgent shea alesha to urinate 33287746 R39.15 Health Concerns Section Related Observation LastModified by Organization Detai ls LastModified Time None Recorded Concern Status LastModified by Organization Details LastModified Time None Recorded Advance Directives Directive None Recorded Payers Insurance Date Sequence Insurance Name Policy Number Policy Benitez Covered Member ID Benitez Member ID Guarantor Name 06/05/2025 1 [facility] - DOS ON OR AFTER 2023 - DUAL ELIGIBLE - PENITENTIARY OPTIONS AND ONE CARE (MEDICARE REPLACEMENT/ADV ANTAGE - HMO) Zoila Giron [id number] Zoila Giron OBGyn Episode No OBEpisode recorded.
[2025-07-06 09:03] VITALS: BMI 28.5
--- NOTE | 2025-07-07 09:18 | HO.ANESPROP2 ---
Documented by User: Yany Maynard NP 07/07/25 09:20 HPI - Anesthesia Eval Consult details Narrative: 55yo F for Upper Endoscopy and Colonoscopy PMFSH Active Problems Active Problems: All Active Problems Sinus congestion (Acute) Gastritis (Acute) Encounter for well woman exam with routine gynecological exam (Acute) Abnormal barium swallow (Acute) Dysphagia (Acute) Pneumonia (Acute) History of recent pneumonia (Acute) Stress incontinence (Acute) Blood pressure elevated without history of HTN (Acute) Cervical cancer screening (Acute) Medicare annual wellness visit, initial (Acute) Asthma (Acute) Coccygeal pain (Acute) Atherosclerosis of abdominal aorta (Acute) Recurrent respiratory infection (Acute) Dizziness (Acute) Right ear pain (Acute) COVID-19 (Acute) Overweight (BMI 25.0-29.9) (Acute) Impacted cerumen of both ears (Acute) Breast cancer screening by mammogram (Acute) Colon cancer screening (Acute) Generalized anxiety disorder (Acute) Annual physical exam (Acute) Peripheral neuropathy (Acute) Heart palpitations (Acute) Urinary frequency (Acute) Recurrent major depression (Acute) Skin lesion of face (Acute) Bile salt-induced diarrhea (Acute) Tremor (Acute) Tobacco abuse (Acute) Allergic rhinitis (Acute) Major depressive disorder, recurrent severe without psychotic features (Acute) Chronic restrictive lung disease (Acute) Asthma-COPD overlap syndrome (Acute) Chronic allergic rhinitis (Acute) Allergy to vaccine (Acute) SARS-CoV-2 positive (Acute) Low back pain (Acute) Hypercholesterolemia (Acute) Fibromyalgia (Acute) Migraine (Acute) Vitamin D deficiency (Acute) Insomnia (Acute) GERD (gastroesophageal reflux disease) (Acute) Past Medical History Medical History (Updated 07/08/25 @ 08:29 by Mallory Maier RN) Major depressive disorder, recurrent severe without psychotic features Seizure disorder Ingrown left greater toenail Vitamin D deficiency Bronchitis Acute bronchitis Left leg numbness Chronic restrictive lung disease Asthma-COPD overlap syndrome Chronic allergic rhinitis Palpitation SARS-CoV-2 positive Generalized anxiety disorder Allergy to vaccine Low back pain Closed left clavicular fracture History of miscarriage Temporal lobe epilepsy Hypercholesterolemia Fibromyalgia Migraine Bile salt-induced diarrhea Insomnia GERD (gastroesophageal reflux disease) Family History Family History Father Cancer Mother CVD (cerebrovascular disease) Sister Breast cancer Family/Other Brain cancer Paternal Uncle Colon cancer Paternal Grandmother Stomach cancer Other Mental health disorder Surgical History Surgical History (Updated 07/08/25 @ 08:29 by Mallory Maier RN) H/O colonoscopy History of esophagogastroduodenoscopy (EGD) (~2016) History of cholecystectomy Social History Social History Housing: Apartment Alcohol intake: never Patient Tobacco Use Status: Former Tobacco user Tobacco use type: Cigarette Years Smoked: 1 pack per week stopped 2021 e-Cigarette/Vaping Use: Never Used Second Hand Smoke Exposure: Yes Use of substances other than those prescribed or required for medical reasons: No Are you DNR?: No Advance Directives: No Advance Directives Information Provided: Yes service: No Current occupational status: unemployed Gender identity: Female Cognitive needs: No Hearing needs: No Vision needs: Yes Meds Allergies Allergy/AdvReac Type Severity Reaction Status Date / Time Clindamycin HCl Allergy Intermediate esophagus, Verified 07/08/25 08:37 trouble swallowing ibuprofen Allergy Intermediate nausea Verified 07/08/25 08:37 oxycodone (OXYCODONE) Allergy Intermediate palpitations, Verified 07/08/25 08:37 hyper tramadol (TRAMADOL) Allergy Intermediate palpitations, Verified 07/08/25 08:37 hyper vilazodone (Viibryd) Allergy Intermediate dry mouth Verified 07/08/25 08:37 and tremors NSAIDS (Non-Steroidal Allergy Mild STOMACH Verified 07/08/25 08:37 Anti-Inflamma (NSAIDS UPSET (NON-STEROIDAL ANTI-INFLAMMA) gabapentin Allergy Unknown Unknown Verified 07/08/25 08:37 pseudoephedrine (Sudafed) Allergy Unknown Unknown Verified 07/08/25 08:37 zolpidem (Ambien) Allergy Unknown Unknown Verified 07/08/25 08:37 bupropion (BUPROPION) AdvReac Intermediate HTN, Verified 07/08/25 08:37 BLURRY VISION levofloxacin AdvReac Intermediate weakness, Verified 07/08/25 08:37 nausea/vomiting quetiapine (From Seroquel) AdvReac Intermediate patient Verified 07/08/25 08:37 states Home Medications ?Medication ?Instructions ?Recorded ?Confirmed ?Last Taken ?Type ascorbate calcium (vitamin C) 500 1 g PO Q6H 10/21/20 07/06/25 Unknown History mg tablet cholecalciferol (vitamin D3) 25 25 mcg PO DAILY 10/21/20 07/06/25 Unknown History mcg (1,000 unit) capsule zinc 50 mg tablet 50 mg PO DAILY 10/21/20 08/24/24 Unknown History ferrous sulfate 325 mg (65 mg 325 mg PO DAILY 07/25/21 07/06/25 Unknown History iron) tablet (Feosol) GROWTH STRENGTH RECOVERY 05/20/23 08/24/24 Unknown History magnesium oxide 400 mg PO DAILY 01/08/24 07/06/25 Unknown History diclofenac sodium 1 % topical gel topical PRN 08/11/24 08/24/24 Unknown History metoclopramide HCl 10 mg tablet 10 mg PO BID-TID PRN gi distress 06/23/25 07/06/25 Unknown History Exam Height,Weight and Vital Signs: Height 5 ft 4 in Weight 75.296 kg Pertinent Lab Results Pertinent Lab Results: Laboratory Tests 06/27/25 15:05 WBC 11.1 H Hgb 15.2 Hct 45.6 Plt Count 315 Sodium 139 Potassium 4.1 Chloride 107 Carbon Dioxide 22 BUN 11 Creatinine 0.76 Assessment and Plan Assessment Anesthesia Assessment: Chart Reviewed Documented by User: Poli Perera MD 07/08/25 09:58 PMFSH Past Medical History Medical History (Updated 07/08/25 @ 08:29 by Mallory Maier RN) Major depressive disorder, recurrent severe without psychotic features Seizure disorder Ingrown left greater toenail Vitamin D deficiency Bronchitis Acute bronchitis Left leg numbness Chronic restrictive lung disease Asthma-COPD overlap syndrome Chronic allergic rhinitis Palpitation SARS-CoV-2 positive Generalized anxiety disorder Allergy to vaccine Low back pain Closed left clavicular fracture History of miscarriage Temporal lobe epilepsy Hypercholesterolemia Fibromyalgia Migraine Bile salt-induced diarrhea Insomnia GERD (gastroesophageal reflux disease) Family History Family History Father Cancer Mother CVD (cerebrovascular disease) Sister Breast cancer Family/Other Brain cancer Paternal Uncle Colon cancer Paternal Grandmother Stomach cancer Other Mental health disorder Family history of problems with anesthesia: No Surgical History Surgical History (Updated 07/08/25 @ 08:29 by Mallory Maier RN) H/O colonoscopy History of esophagogastroduodenoscopy (EGD) (~2017) History of cholecystectomy History of Problems with Anesthesia: No Social History Social History Housing: Apartment Alcohol intake: never Patient Tobacco Use Status: Former Tobacco user Tobacco use type: Cigarette Years Smoked: 1 pack per week stopped 2021 e-Cigarette/Vaping Use: Never Used Second Hand Smoke Exposure: Yes Use of substances other than those prescribed or required for medical reasons: No Are you DNR?: No Advance Directives: No Advance Directives Information Provided: Yes service: No Current occupational status: unemployed Gender identity: Female Cognitive needs: No Hearing needs: No Vision needs: Yes Meds Allergies Allergy/AdvReac Type Severity Reaction Status Date / Time Clindamycin HCl Allergy Intermediate esophagus, Verified 07/08/25 08:37 trouble swallowing ibuprofen Allergy Intermediate nausea Verified 07/08/25 08:37 oxycodone (OXYCODONE) Allergy Intermediate palpitations, Verified 07/08/25 08:37 hyper tramadol (TRAMADOL) Allergy Intermediate palpitations, Verified 07/08/25 08:37 hyper vilazodone (Viibryd) Allergy Intermediate dry mouth Verified 07/08/25 08:37 and tremors NSAIDS (Non-Steroidal Allergy Mild STOMACH Verified 07/08/25 08:37 Anti-Inflamma (NSAIDS UPSET (NON-STEROIDAL ANTI-INFLAMMA) gabapentin Allergy Unknown Unknown Verified 07/08/25 08:37 pseudoephedrine (Sudafed) Allergy Unknown Unknown Verified 07/08/25 08:37 zolpidem (Ambien) Allergy Unknown Unknown Verified 07/08/25 08:37 bupropion (BUPROPION) AdvReac Intermediate HTN, Verified 07/08/25 08:37 BLURRY VISION levofloxacin AdvReac Intermediate weakness, Verified 07/08/25 08:37 nausea/vomiting quetiapine (From Seroquel) AdvReac Intermediate patient Verified 07/08/25 08:37 states Home Medications ?Medication ?Instructions ?Recorded ?Confirmed ?Last Taken ?Type ascorbate calcium (vitamin C) 500 1 g PO Q6H 10/21/20 07/06/25 Unknown History mg tablet cholecalciferol (vitamin D3) 25 25 mcg PO DAILY 10/21/20 07/06/25 Unknown History mcg (1,000 unit) capsule zinc 50 mg tablet 50 mg PO DAILY 10/21/20 08/24/24 Unknown History ferrous sulfate 325 mg (65 mg 325 mg PO DAILY 07/25/21 07/06/25 Unknown History iron) tablet (Feosol) GROWTH STRENGTH RECOVERY 05/20/23 08/24/24 Unknown History magnesium oxide 400 mg PO DAILY 01/08/24 07/06/25 Unknown History diclofenac sodium 1 % topical gel topical PRN 08/11/24 08/24/24 Unknown History metoclopramide HCl 10 mg tablet 10 mg PO BID-TID PRN gi distress 06/23/25 07/06/25 Unknown History Exam Airway Mallampati Class: III TM Dist: <=3cm Neck ROM: Full Loose/Missing/Broken Teeth: No Heart: ok Lungs: ok Assessment and Plan Assessment Anesthesia Assessment: Anesthesia Plan Discussed Final Anesthetic Review Family History of Problems with Anesthesia: No History of Problems with Anesthesia: No NPO: Yes ASA Class: III Final Preanesthetic Review: No Changes in Pt Med Stat, Meds/Allgs Chart Reviewed, Consent Obtained/Reviewed and Anes Risks/Benef Reviewed Patient Risk: Intermediate Procedure Risk: Intermediate Anesthetic Plan Anesthetic Plan: Agree w/ Assess. and Plan and TIVA Disposition: Standard PACU
[2025-07-08 08:29] VITALS: BMI 28.3
[2025-07-08 08:44] VITALS: BP 118/69; PULSE 68; RESP 15; TEMP 36.2; O2SAT 95
[2025-07-08] MEDS: Lactated Ringers 1,000 ML 100 ML IVCONT (08:52)
--- NOTE | 2025-07-08 09:18 | MHC.SHP ---
Pre-Procedural Eval Section A - 24 Hr Update-Section A only Date of Service: 07/08/25 Section B - Complete if H&P > 30 days Chief Complaint: Dysphagia, gastritis, hx of polyps Details of Present Illness: Major depressive disorder, recurrent severe without psychotic features Seizure disorder Ingrown left greater toenail Vitamin D deficiency Asthma Allergies Bronchitis Acute bronchitis Left leg numbness Chronic restrictive lung disease Asthma-COPD overlap syndrome Chronic allergic rhinitis Palpitation SARS-CoV-2 positive Generalized anxiety disorder Allergy to vaccine Low back pain Gallbladder polyp Closed left clavicular fracture History of miscarriage Temporal lobe epilepsy Hypercholesterolemia Fibromyalgia Migraine Bile salt-induced diarrhea Insomnia GERD (gastroesophageal reflux disease) Surgical History History of esophagogastroduodenoscopy (EGD) (~2017) History of cholecystectomy Family History Father Cancer Mother CVD (cerebrovascular disease) Sister Breast cancer Family/Other Brain cancer Paternal Uncle Colon cancer Paternal Grandmother Stomach cancer Other Mental health disorder Present Medications: see Short Stay Collaborative assessment Allergies: Allergies Allergy/AdvReac Type Severity Reaction Status Date / Time Clindamycin HCl Allergy Intermediate esophagus, Verified 07/08/25 08:37 trouble swallowing ibuprofen Allergy Intermediate nausea Verified 07/08/25 08:37 oxycodone (OXYCODONE) Allergy Intermediate palpitations, Verified 07/08/25 08:37 hyper tramadol (TRAMADOL) Allergy Intermediate palpitations, Verified 07/08/25 08:37 hyper vilazodone (Viibryd) Allergy Intermediate dry mouth Verified 07/08/25 08:37 and tremors NSAIDS (Non-Steroidal Allergy Mild STOMACH Verified 07/08/25 08:37 Anti-Inflamma (NSAIDS UPSET (NON-STEROIDAL ANTI-INFLAMMA) gabapentin Allergy Unknown Unknown Verified 07/08/25 08:37 pseudoephedrine (Sudafed) Allergy Unknown Unknown Verified 07/08/25 08:37 zolpidem (Ambien) Allergy Unknown Unknown Verified 07/08/25 08:37 bupropion (BUPROPION) AdvReac Intermediate HTN, Verified 07/08/25 08:37 BLURRY VISION levofloxacin AdvReac Intermediate weakness, Verified 07/08/25 08:37 nausea/vomiting quetiapine (From Seroquel) AdvReac Intermediate patient Verified 07/08/25 08:37 states Review of Systems Review of Systems Comment: Ten point ROS negative Exam Exam Comment: Gen appear: No acute distress HEENT: no icterus Chest: No overt resp distress Abd: soft, nontender, nondistended Psych: Stable affect, answering questions appropriately Neuro: A/Ox3 noted to move all extremities spontaneously Ext: no peripheral edema Plan Diagnosis/Plan: Unchanged I have reviewed the history and physical and performed a pertinent physical examination on my patient. No changes have occurred unless specified. Time Spent With Patient Time: Total time managing care of this patient today ____ minutes.
[2025-07-08 10:32] VITALS: BP 99/51; PULSE 70; RESP 20; TEMP 36.1; O2SAT 95
[2025-07-08 10:42] VITALS: BP 119/63; PULSE 71; RESP 19; O2SAT 100
[2025-07-08 10:57] VITALS: BP 147/69; PULSE 67; RESP 19; O2SAT 100
--- NOTE | 2025-07-08 11:30 | P.OPN-COLO_ITS ---
Colonoscopy Operative Note Operative Note Date of Service: 07/08/25 Narrative: Procedure: Upper endoscopy and colonoscopy Indication: Dysphagia, gastritis, hx of polyps Endoscopist: Bela Swan MD Anesthesia Provider: Dr Corinne Lincoln Anesthesia type: MAC Instrument: [id number] and [id number] EGD Procedure:?? The procedure, indications, preparation and potential complications were reviewed with the patient, who indicated understanding and gave written informed consent to proceed. The endoscope was introduced through the mouth, and advanced to the 2nd part of the duodenum. The mucosa was carefully examined on slow withdrawal of the endoscope. The patient tolerated the procedure well. There were no immediate complications.? EGD Findings:? * Esophagus:? Whitish exudates noted throughout the upper and middle esophagus suspicious for underlying daniel. The Z-line was at 40 cm. Cold forceps biopsies were taken from GE junction to rule out Barretts esophagus and proximal esophagus to rule out daniel esophagitis. * Stomach:? Erythema and erosions in the body and antrum. Retroflexion was performed in the cardia. Random cold forceps biopsies were taken from the stomach. * Duodenum:? Normal duodenal mucosa. Cold forceps biopsies were taken from the duodenal bulb and 2nd portion of the duodenum to rule out celiac sprue. Colonoscopy Procedure:? The patient was then turned for the colonoscopy. A digital rectal exam was performed which was normal.? A distal attachment cap was affixed to the tip of the scope and the colonoscope was then inserted through the anus and advanced through the colon and advanced to the cecum at 75 cm.? Appendiceal orifice and ileocecal valve were identified. Mucosa was carefully examined under high definition white light as the instrument was slowly withdrawn in a retrograde panoramic fashion. Retroflexion was performed in rectum. The procedure was not difficult. The quality of the prep was BBPS: 1+2+1 = inadequate Withdrawal time 4 minutes Limitations: Poor prep Findings: Mucosa: Copious solid and semi-solid stool present throughout the colon limiting adequate visualization for underlying polyps. Protruding lesions: * Medium internal hemorrhoids without stigmata of recent bleeding. Impression: 1. R/o daniel esophagitis (biopsy) 2. Gastritis (biopsy) 3. Normal duodenum (biopsy) 4. Poor prep 5. Internal hemorrhoids Recommendations:?? * Follow-up path results * Start fluconazole 400 mg once daily x 14 days * Avoid NSAIDs * H Pylori treatment if biopsies + * Repeat colonoscopy will be booked within 6-12 months for poor prep
--- NOTE | 2025-07-08 11:42 | HO.POSTANES ---
Post Anesthesia Evaluation Post Anesthesia Evaluation Date of Service: 07/08/25 Vital Signs: Vital Signs Temp Pulse Resp BP Pulse Ox O2 Del Method 07/08/25 10:57 67 19 147/69 H 100 Room Air 07/08/25 10:42 71 19 119/63 100 Room Air 07/08/25 10:32 97 F 70 20 99/51 L 95 Room Air 07/08/25 08:44 97.1 F 68 15 118/69 95 Room Air Anesthesia: Monitored Mental Status: Awake Pain Control: Satisfactory Nausea/Vomiting: None Hydration: Adequate Anesthesia-Related Issues: No Anes. Related Issues
== END 2025-07-08 11:15 | disposition home or self-care (01) ==
PROVIDERS: Visit Provider Internal Medicine
PROC: (CPT 43239; principal; 2025-07-08 09:50)
DX: Z12.11 Encounter for screening for malignant neoplasm of colon (principal); K64.8 Other hemorrhoids; Z86.0101 Personal history of adenomatous and serrated colon polyps; Z91.199 Patient's noncompliance with other medical treatment and regimen due to unspecified reason; R13.10 Dysphagia, unspecified; K29.60 Other gastritis without bleeding; K21.9 Gastro-esophageal reflux disease without esophagitis; J45.909 Unspecified asthma, uncomplicated; E78.00 Pure hypercholesterolemia, unspecified; Z87.891 Personal history of nicotine dependence; Z79.899 Other long term (current) drug therapy
CPT/HCPCS: 43239; G0105; 88305; 88312; 88313; 88342; J2003; J2704; J3010

== ENCOUNTER → 2025-07-08 07:35 | Outpatient (BNV) | payer OTHER, SELFPAY | PROVIDERS: Visit Provider Internal Medicine | DX: R13.10 Dysphagia, unspecified (principal); K29.70 Gastritis, unspecified, without bleeding; Z12.11 Encounter for screening for malignant neoplasm of colon; Z86.0100 Personal history of colon polyps, unspecified; K64.8 Other hemorrhoids | CPT/HCPCS: 43239; G0105 ==

== ENCOUNTER 2025-07-16 08:31 | Outpatient (AMB) | payer OTHER, SELFPAY ==
[2025-07-16 08:33] VITALS: BP 124/88; PULSE 82; TEMP 36.1; O2SAT 96; BMI 28.4
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
--- OUTSIDE RECORDS SUMMARY | 2025-07-16 09:30 | XMS_ITS | Encounter Summary ---
Author Organization [employer] [facility] Address [address] [place] [address] Care Team Providers Care Auricular Acupuncturist Name Role Phone Quinn Herndon MD Primary Care Provider [phone] April Vizcaino MD Primary Care Provider Unavailabl e Encounter Details Date Type Department Care Team Description 06/06/2016 Business Doc Medical Records [address] [place] [id number] Abstract, Provider Social History Tobacco Use Types [...] on filedocumented in this encounter Care Teams Auricular Acupuncturist Relationship Specialty Start Date End Date Quinn Herndon MD [address] [place] [address] [phone] PCP - General Internal Medicine 08/25/13 11/26/16 April Vizcaino MD [address] [place] [phone] PCP - General Internal Medicine 11/27/16 documented as of this encounter
--- OUTSIDE RECORDS SUMMARY | 2025-07-16 09:30 | XMS_ITS | Encounter Summary ---
Author Organization [employer] [facility] Address [address] [place] [address] Care Team Providers Care Retail Field Merchandiser Name Role Phone Quinn Herndon MD Primary Care Provider [phone] April Vizcaino MD Primary Care Provider Unavailabl e Encounter Details Date Type Department Care Team Description 09/29/2013 Night Triage Doc Medical Records [address] [place] [id number] Abstract, Provider Social History Tobacco Use Types [...] on filedocumented in this encounter Care Teams Retail Field Merchandiser Relationship Specialty Start Date End Date Quinn Herndon MD [address] [place] [address] [phone] PCP - General Internal Medicine 08/25/13 11/26/16 April Vizcaino MD [address] [place] [address] [phone] PCP - General Internal Medicine 11/27/16 documented as of this encounter
--- OUTSIDE RECORDS SUMMARY | 2025-07-16 09:30 | XMS_ITS | Encounter Summary ---
Author Organization [employer] [facility] Address [address] [place] [address] Care Team Providers Care Finisher Merchant Products Name Role Phone Quinn Herndon MD Primary Care Provider [phone] April Vizcaino MD Primary Care Provider Unavailabl e Encounter Details Date Type Department Care Team Description 02/11/2014 Business Doc Medical Records [address] [place] [id number] Abstract, Provider Social History Tobacco Use Types [...] on filedocumented in this encounter Care Teams Finisher Merchant Products Relationship Specialty Start Date End Date Quinn Herndon MD [address] [place], [place] [phone] PCP - General Internal Medicine 08/25/13 11/26/16 April Vizcaino MD [address] [place] [phone] PCP - General Internal Medicine 11/27/16 documented as of this encounter
--- OUTSIDE RECORDS SUMMARY | 2025-07-16 09:30 | XMS_ITS | Encounter Summary ---
Author Organization [employer] [facility] Address [address] [place] [address] Care Team Providers Care Inspector Raw Quartz Name Role Phone Quinn Herndon MD Primary Care Provider April Vizcaino MD Primary Care Provider Unavailabl e Encounter Details Date Type Department Care Team Description 07/24/2015 Night Triage Doc Medical Records [address] [place] [id number] Abstract, Provider Social History Tobacco Use Types [...] filedocumented in this encounter Care Teams Inspector Raw Quartz Relationship Specialty Start Date End Date Quinn Herndon MD [address] [place] [address] [phone] PCP - General Internal Medicine 08/25/13 11/26/16 April Vizcaino MD [address] [place] [phone] PCP - General Internal Medicine 11/27/16 documented as of this encounter
--- OUTSIDE RECORDS SUMMARY | 2025-07-16 09:30 | XMS_ITS | Encounter Summary ---
Author Organization [facility] Address [address] [place] [address] Care Team Providers Care Skein Mercerizing Machine Operator Name Role Phone Quinn Herndon MD Primary Care Provider [phone] April Vizcaino MD Primary Care Provider Unavailabl e Reason for Visit * Reason Onset Date Comments Congestion 10/25/2014 Encounter Details Date Type Department Care Team Description 10/25/2014 Telephone Adult Medicine [facility] [address] [place] [address] [phone] Quinn Herndon MD [address] [place] [address] [phone] Congestion Social History Tobacco Use Types Packs/Day [...] symptoms?: 2 days PCP: Quinn Herndon Payor: MEDICARE-Way2Pay / Plan[place] / Product Type: MEDICARE [id number] documented in this encounter Plan of Treatment Not on file documented as of this encounter Visit Diagnoses Not on filedocumented in this encounter Care Teams Skein Mercerizing Machine Operator Relationship Specialty Start Date End Date Quinn Herndon MD [address] [place] [address] [phone] PCP - General Internal Medicine 08/25/13 11/26/16 April Vizcaino MD [address] [place] [phone] PCP - General Internal Medicine 11/27/16 documented as of this encounter
--- OUTSIDE RECORDS SUMMARY | 2025-07-16 09:30 | XMS_ITS | Clinical Summary ---
Author Organization [facility] it Address [address] [place] [address] Care Team Providers Care Engineer Process Name Role Phone April Vizcaino MD Primary Care Provider [phone] Social History Tobacco Use Types Packs/Day Years [...] RESULTING AGENCY - 06/18/2018 9:05 AM EDT [id number] THINPREP PAP, IMAGED: ATYPICAL SQUAMOUS CELLS OF [...] Recently Relevant to Health Maintenance Care Teams Engineer Process Relationship Specialty Start Date End Date April Vizcaino MD [address] [place] [address] [address] [facility] [place] [address] PCP - General Internal Medicine 11/27/16
--- OUTSIDE RECORDS SUMMARY | 2025-07-16 09:30 | XMS_ITS | Encounter Summary ---
Author Organization [facility] Address [address] [place] [address] Care Team Providers Care Ssn/Ssbn Weapons Equipment Operator Name Role Phone Quinn Herndon MD Primary Care Provider [phone] April Vizcaino MD Primary Care Provider Unavailabl e Encounter Details Date Type Department Care Team Description 10/12/2015 Release of Information Medical Records [address] [place] [address] Abstract, Provider Social History Tobacco Use Types [...] on filedocumented in this encounter Care Teams Ssn/Ssbn Weapons Equipment Operator Relationship Specialty Start Date End Date Quinn Herndon MD [address] [place], [place] [phone] PCP - General Internal Medicine 08/25/13 11/26/16 April Vizcaino MD [address] [place] [address] PCP - General Internal Medicine 11/27/16 documented as of this encounter
--- OUTSIDE RECORDS SUMMARY | 2025-07-16 09:30 | XMS_ITS | Encounter Summary ---
Author Organization [facility] Address [address] [place] [address] Care Team Providers Care Director Manufacturing Engineering Name Role Phone Quinn Herndon MD Primary Care Provider [phone] April Vizcaino MD Primary Care Provider Unavailabl e Encounter Details Date Type Department Care Team Description 02/09/2016 Transfer Records Medical Records [address] [place] [address] Social History Tobacco Use Types Packs/Day Years [...] filedocumented in this encounter Care Teams Director Manufacturing Engineering Relationship Specialty Start Date End Date Quinn Herndon MD [address] [place] [address] PCP - General Internal Medicine 08/25/13 11/26/16 April Vizcaino MD [address] [place], [place] [phone] PCP - General Internal Medicine 11/27/16 documented as of this encounter
--- OUTSIDE RECORDS SUMMARY | 2025-07-16 09:30 | XMS_ITS | Encounter Summary ---
Author Organization [employer] [facility] Address [address] [place] [address] Care Team Providers Care Brim Plater Name Role Phone Quinn Herndon MD Primary Care Provider April Vizcaino MD Primary Care Provider Unavailabl e Encounter Details Date Type Department Care Team Description 04/05/2014 Night Triage Doc Medical Records [address] [place] [address] Abstract, Provider Social History Tobacco Use Types [...] on filedocumented in this encounter Care Teams Brim Plater Relationship Specialty Start Date End Date Quinn Herndon MD [address] [place] [address] [phone] PCP - General Internal Medicine 08/25/13 11/26/16 April Vizcaino MD [address] [place] [address] PCP - General Internal Medicine 11/27/16 documented as of this encounter
--- OUTSIDE RECORDS SUMMARY | 2025-07-16 09:30 | XMS_ITS | Encounter Summary ---
Author Organization [facility] [employer] [facility] Address [address] [place] [address] Care Team Providers Care Information Technology Teacher Name Role Phone Quinn Herndon MD Primary Care Provider [phone] April Vizcaino MD Primary Care Provider Unavailabl e Encounter Details Date Type Department Care Team Description 12/16/2013 Transfer Records Medical Records [address] [place] [address] Abstract, Provider Social History Tobacco Use Types [...] on filedocumented in this encounter Care Teams Information Technology Teacher Relationship Specialty Start Date End Date Quinn Herndon MD [address] [place] [address] [phone] PCP - General Internal Medicine 08/25/13 11/26/16 April Vizcaino MD [address] [place] [address] PCP - General Internal Medicine 11/27/16 documented as of this encounter
--- OUTSIDE RECORDS SUMMARY | 2025-07-16 09:30 | XMS_ITS | Encounter Summary ---
Author Organization [facility] Address [address] [place] [address] Care Team Providers Care Paste Up Copy Camera Operator Name Role Phone April Vizcaino MD Primary Care Provider Unavailabl e Encounter Details Date Type Department Care Team Description 05/24/2017 SCAN Medical Records [address] [place] [address] Abstract, Provider Social History Tobacco Use Types [...] on filedocumented in this encounter Care Teams Paste Up Copy Camera Operator Relationship Specialty Start Date End Date April Vizcaino MD PCP - General Internal Medicine 11/27/16 documented as of this encounter
--- OUTSIDE RECORDS SUMMARY | 2025-07-16 09:30 | XMS_ITS | Encounter Summary ---
Author Organization [facility] Address [address] [place] [address] Care Team Providers Care Ball Mill Operator Name Role Phone Quinn Herndon MD Primary Care Provider [phone] April Vizcaino MD Primary Care Provider Unavailabl e Encounter Details Date Type Department Care Team Description 01/18/2016 Business Doc Medical Records [address] [place] [address] Abstract, Provider Social History Tobacco Use Types [...] on filedocumented in this encounter Care Teams Ball Mill Operator Relationship Specialty Start Date End Date Quinn Herndon MD [address] [place], [place] [phone] PCP - General Internal Medicine 08/25/13 11/26/16 April Vizcaino MD [address] [place] [address] PCP - General Internal Medicine 11/27/16 documented as of this encounter
--- OUTSIDE RECORDS SUMMARY | 2025-07-16 09:30 | XMS_ITS | Encounter Summary ---
Author Organization [employer] [facility] Address [address] [place] [address] Care Team Providers Care Bioinformatics Scientist Name Role Phone April Vizcaino MD Primary Care Provider Unavailabl e Encounter Details Date Type Department Care Team Description 05/24/2017 SCAN Medical Records [address] [place] [address] Abstract, Provider Social History Tobacco Use Types [...] on filedocumented in this encounter Care Teams Bioinformatics Scientist Relationship Specialty Start Date End Date April Vizcaino MD PCP - General Internal Medicine 11/27/16 documented as of this encounter
--- OUTSIDE RECORDS SUMMARY | 2025-07-16 09:30 | XMS_ITS | Encounter Summary ---
Author Organization [facility] Address [address] [facility] [address] [place] [address] Encounters * CPT with Xavi Guaman at [employer] on 2025-06-05 Member calling in with c/o urinary frequency and urgency. Denies fevers, denies back or abd pain. Does endorse having some right flank pain at times. Denies any pain or burning with urination. Memberasking to be evaluated for UTI as her symptoms are similar to being diagnosed with UTI in the past. { reasonForRequest : UTI , patientReports : , denies&q uot;:[], chiefComplaints : Urinary Symptoms , pmh : Chronic Obstructive Pulmonary Disease (COPD), Asthma , allergies : Oxycodone, Sudafed, Nyquil , otherAllergies :null, painAssessment : , visitOutcome&qu ot;: , additionalComments : HPI reviewed } Arrived to find female in her apt. Patient aox4. GCS 15 smin pink warm and dry patient endorses increased urination on and off for the past month. No discharge. No burning. No cva tenderness. No fevers. VS as noted. UA dip stick unremarkable with exception of little bit of proteins. culture obtained. [facility] contacted advised to send out culture and wait for its findings. No red flag symptoms. Patient understanding. ORAL_MEDICATION, EKG, POC_BLOODWORK, GLUCOSE Written by Xavi Guaman on 2025-06-05
--- OUTSIDE RECORDS SUMMARY | 2025-07-16 09:30 | XMS_ITS | Encounter Summary ---
Author Organization [facility] [facility] Address [address] [place] [address] Care Team Providers Care Software Configuration Engineer Name Role Phone Quinn Herndon MD Primary Care Provider [phone] April Vizcaino MD Primary Care Provider Unavailabl e Encounter Details Date Type Department Care Team Description 11/12/2015 Night Triage Doc Medical Records [address] [place] [address] Abstract, Provider Social History Tobacco Use Types [...] on filedocumented in this encounter Care Teams Software Configuration Engineer Relationship Specialty Start Date End Date Quinn Herndon MD [address] [place], [place] [phone] PCP - General Internal Medicine 08/25/13 11/26/16 April Vizcaino MD [address] [place] [address] PCP - General Internal Medicine 11/27/16 documented as of this encounter
--- OUTSIDE RECORDS SUMMARY | 2025-07-16 09:30 | XMS_ITS | Encounter Summary ---
Author Organization [facility] Address [address] [facility] [address] [place] [address] Encounters * CPT with Medical instED at [employer] on 2025-06-22 { reasonForRequest : frequent urination, some incontinence, minor intermittent , patientReports : Frequent and increased urination with flank pain; Painful urination with or without fever; Inability to fully empty bladder , denies :[ Unable to void greater than 5 hours , Erection that will not go away after 2 hours , Fall or trauma that results in urinary incontinence in the setting of pain , Fall or injury that results in incontinence in the absence of pain , Lower back pain either unilateral or bilateral, unable to void, painful urination -hematuria , Painful urination ], chiefComplaints : Urinary Symptoms , pmh : Chronic Obstructive Pulmonary Disease (COPD), Asthma, Anxiety Disorder, Depression , allergies : Oxycodone, Sudafed, Nyquil, Penicillins , otherAllergies :null, painAssessment : &qu ot;, visitOutcome : , additionalComments : 55 y.o female complains of Urinary Symptoms\n\n3 weeks ago - negative for UTI\nIncontinence \nFrequency - every 20 mins\nOutput sometimes a lot and sometimes a little\nPelvic/lower abdominal pain - comes and goes \nDoesn't hurt when she urinated \nDenies fever, reports shakiness\nReports urine is yellow and not malodorous that she knows of \nReports that protein found in her urine last time\nFeels as if she is unableto fully empty her bladder\nDenies lower back pain\nMoving bowels adequately \n\nI provided information on the mobile health provider response time and advised the patient and/or caregiver to monitorreported signs and symptoms. I discussed the warning signs of when to seek emergency care. } Dispatched to the call address for the female with UTI symptoms. Pt advises that for nearly a monthnow she has had urgency and frequency. She had her urine tested by [facility] a couple of weeks ago andit was negative and she was seen by her PCP last and had blood work and a urine culture done but has not gotten the results yet. She endorses occasionally lower left abd pain but denies chest pain, diff breathing, blood in urine, foul smelling or cloudy urine, changes in appetite or water intake, back pain, fevers or n/v/d. Pt was found opening door, CAOx4, airway open and patent, breathing non labored, able to speak in full sentences, -JVD, -HEENT, skin PWD with good turgor, mucous membranes pink and moist, abd soft non tender/distended, lungs CTA, +CMSx4, - edema/swelling, afebrile, -CVA tenderness. Pt was assessed. UA (-). [facility] consulted. Pt was advised to follow up with her PCP and request referral to specialist. She was also advised she could call her OBGYN and they may be able to assist. Pt has appt with GI doctor tomorrow where she will be able to ask for her results of last weeks tests. Red flags discussed. ALL times are approx. ORAL_MEDICATION, EKG, POC_BLOODWORK, GLUCOSE Written by [facility] on 2025-06-22
--- OUTSIDE RECORDS SUMMARY | 2025-07-16 09:30 | XMS_ITS | Encounter Summary ---
Author Organization [facility] [employer] [facility] Address [address] [place] [address] Care Team Providers Care Go Cart Mechanic Name Role Phone April Vizcaino MD Primary Care Provider Unavailabl e Encounter Details Date Type Department Care Team Description 02/28/2018 Transfer Records Medical Records [address] [place] [address] Abstract, Provider Social History Tobacco Use Types [...] on filedocumented in this encounter Care Teams Go Cart Mechanic Relationship Specialty Start Date End Date April Vizcaino MD PCP - General Internal Medicine 11/27/16 documented as of this encounter
--- OUTSIDE RECORDS SUMMARY | 2025-07-16 09:30 | XMS_ITS | Encounter Summary ---
Author Organization [facility] Address [address] [place] [address] Care Team Providers Care Services Executive Name Role Phone Quinn Herndon MD Primary Care Provider [phone] April Vizcaino MD Primary Care Provider Unavailabl e Encounter Details Date Type Department Care Team Description 11/25/2016 Telephone Adult Medicine [address] [phone] Quinn Herndon MD [address] [place] [address] [phone] Social History Tobacco Use Types Packs/Day Years [...] on filedocumented in this encounter Care Teams Services Executive Relationship Specialty Start Date End Date Quinn Herndon MD [address] [place] [address] PCP - General Internal Medicine 08/25/13 11/26/16 April Vizcaino MD [address] [place] [address] PCP - General Internal Medicine 11/27/16 documented as of this encounter
--- OUTSIDE RECORDS SUMMARY | 2025-07-16 09:30 | XMS_ITS | Encounter Summary ---
Author Organization [facility] Address [address] [place] [address] Care Team Providers Care Bonding Molder Name Role Phone Quinn Herndon MD Primary Care Provider [phone] April Vizcaino MD Primary Care Provider Unavailabl e Encounter Details Date Type Department Care Team Description 02/10/2016 Business Doc Medical Records [address] [place] [address] Abstract, Provider Social History Tobacco Use Types [...] on filedocumented in this encounter Care Teams Bonding Molder Relationship Specialty Start Date End Date Quinn Herndon MD [address] [place], [place] [phone] PCP - General Internal Medicine 08/25/13 11/26/16 April Vizcaino MD [address] [place] [address] PCP - General Internal Medicine 11/27/16 documented as of this encounter
--- OUTSIDE RECORDS SUMMARY | 2025-07-16 09:30 | XMS_ITS | Encounter Summary ---
Author Organization [facility] Address [address] [place] [address] Care Team Providers Care Guard Supervisor Name Role Phone Quinn Herndon MD Primary Care Provider [phone] April Vizcaino MD Primary Care Provider Unavailabl e Encounter Details Date Type Department Care Team Description 02/28/2015 Night Triage Doc Medical Records [address] [place] [address] Abstract, Provider Social History Tobacco Use Types [...] on filedocumented in this encounter Care Teams Guard Supervisor Relationship Specialty Start Date End Date Quinn Herndon MD [address] [place] [address] [phone] PCP - General Internal Medicine 08/25/13 11/26/16 April Vizcaino MD [address] [place] [address] PCP - General Internal Medicine 11/27/16 documented as of this encounter
--- OUTSIDE RECORDS SUMMARY | 2025-07-16 09:30 | XMS_ITS | Encounter Summary ---
Author Organization [facility] Address [address] [place] [address] Care Team Providers Care Verification Lead Name Role Phone Quinn Herndon MD Primary Care Provider [phone] April Vizcaino MD Primary Care Provider Unavailabl e Encounter Details Date Type Department Care Team Description 05/26/2016 Night Triage Doc Medical Records [address] [place] [address] Abstract, Provider Social History Tobacco Use Types [...] on filedocumented in this encounter Care Teams Verification Lead Relationship Specialty Start Date End Date Quinn Herndon MD [address] [place] [address] [phone] PCP - General Internal Medicine 08/25/13 11/26/16 April Vizcaino MD [address] [place] [address] PCP - General Internal Medicine 11/27/16 documented as of this encounter
--- OUTSIDE RECORDS SUMMARY | 2025-07-16 09:30 | XMS_ITS | Encounter Summary ---
Author Organization [facility] Address [address] [place] [address] Care Team Providers Care Electrical And Instrument Mechanic Name Role Phone Quinn Herndon MD Primary Care Provider [phone] April Vizcaino MD Primary Care Provider Unavailabl e Reason for Visit * Reason Onset Date Comments TEST RESULTS 01/05/2014 Encounter Details Date Type Department Care Team Description 01/05/2014 Telephone Adult Medicine [facility] [address] [place] [address] [phone] Quinn Herndon MD [address] [place] [address] TEST RESULTS; Social History Tobacco Use Types [...] performed: 01/04/14 Where was the test performed: [facility] Who ordered this test?: ZAHRA GARDNER Is [...] on filedocumented in this encounter Care Teams Electrical And Instrument Mechanic Relationship Specialty Start Date End Date Quinn Herndon MD [address] [place] [address] PCP - General Internal Medicine 08/25/13 11/26/16 April Vizcaino MD [address] [place] [address] PCP - General Internal Medicine 11/27/16 documented as of this encounter
--- OUTSIDE RECORDS SUMMARY | 2025-07-16 09:30 | XMS_ITS | Encounter Summary ---
Author Organization [facility] Address [address] [place] [address] Care Team Providers Care Interior Design Project Manager Name Role Phone Quinn Herndon MD Primary Care Provider [phone] April Vizcaino MD Primary Care Provider Unavailabl e Encounter Details Date Type Department Care Team Description 10/01/2015 Night Triage Doc Medical Records [address] [place] [address] Abstract, Provider Social History Tobacco Use Types [...] filedocumented in this encounter Care Teams Interior Design Project Manager Relationship Specialty Start Date End Date Quinn Herndon MD [address] [place], [place] [phone] PCP - General Internal Medicine 08/25/13 11/26/16 April Vizcaino MD [address] [place] [address] PCP - General Internal Medicine 11/27/16 documented as of this encounter
--- OUTSIDE RECORDS SUMMARY | 2025-07-16 09:30 | XMS_ITS | Encounter Summary ---
Author Organization [facility] Address [address] [place] [address] Encounters * CPT with Xavi Guaman at [facility] on 2025-05-04 Tiffanie is a 55 yo female with hx of but not all inclusive of severe persistent asthma. Allergies to Sudafed, Oxycodone, and Nyquil. Mbr states she uses her rescue inhaler and nebulizer to manage asthma.Per Mbr asthma at baseline. Mbr calling in with two-week hx of sinus congestion and headache. Mbr stated that she is unsure if she has a fever. Mbr denies chest pain, vomiting or diarrhea. Mbr statesshe is a little nauseous due to the sinus drippings in the back of her throat. Mbr reported she could not get into see her Provider. Mbr reported that she fell and hit her head prior to this CRU call. Mbr reports back of head hurts where she hit her head on her rug but does not want to go to ER andwould like an INSTED HV for evaluation. 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 This CRU RN instructed Mbr to call 911 and got to ER if she develops worsening s/s and s/s concussion and mbr agrees. This CRU RN placed INSTED HV in on Mbr's behalf. Alerted CC via GC activity. Confirmed address and phone/[phone]. { reasonForRequest : cough , patientReports : , denies :[], chiefComplaints : Cough, Headache, Weakness , pmh : Chronic Obstructive Pulmonary Disease (COPD), Asthma , allergies : Oxycodone, Sudafed, Nyquil , otherAllergies :null, painAssessment : , visi tOutcome : , additionalComments : HPI reviewed } This 55-year-old female with a history of asthma requested a visit today to address two weeks of sinus congestion/pain, cough producing yellow sputum and right here pain/pressure. Patient states she frequently gets sinus infections requiring antibiotics, was most recently treated with azithromycin four weeks ago. Patient is using her nebulizer treatments as prescribed, loratadine, inhalers, Nettypot and fluticasone. Patient denies any chest pain, shortness of breath, dyspnea on exertion, fevers, nausea, vomiting, diarrhea. Patient presents awake and alert, in no acute distress and speaking full sentences. Her vital signsare reasonably stable and she is afebrile. Nonfocal neurological exam. Normal gait. Diffuse sinus tenderness bilaterally. Normal left in her ear exam with visualization of the TM, unable to visualizeTM and right ear due to wax buildup. Normal oropharynx exam. Lungs are clear throughout auscultation. Abdomen is soft, nontender, nondistended. No lower extremity edema. Rapid COVID and flu testing are both negative. I treated with Augmentin 875/125 mg. We discussed the diagnostic uncertainty of home visits and the risk associated with this. In this case, the patient and I felt this to be an acceptable and reasonable amount of risk given the benefitof avoiding an ED visit. I provided education on the patient's prescriptions as well as the importance of follow-up with her PCP bill of lading clerk. I recommend she request a referral for an ENT and present to the emergency department for any new or worsening severe symptoms such as chest pain, severe shortness of breath, high fever, altered mental status. The patient interfamily were given the opportunity to ask questions and are agreeable to this plan. IV_(FLUIDS_AND/OR_MEDICATION), MEDICATION_IM, ORAL_MEDICATION, EKG, POC_FLU_STREP, COVID_TEST, WOUND_CARE Written by Xavi Guaman on 2025-05-04
--- OUTSIDE RECORDS SUMMARY | 2025-07-16 09:30 | XMS_ITS | Patient Health Record ---
Author Organization [facility] Address [address] [place] [address] Care Team Providers Care Graduate Student Instructor Name Role Phone Po April SHEEHAN Primary [...] Status W/U Status Risk Notes Problem Nausea (160683912) Nausea (787.02) Active confirmed Problem Epigastric pain (45235881) Epigastric pain (789.06) Active confirmed Plan Of Treatment Future Test Test Name Order Date UPPER GI ENDOSCOPY 07/17/2013 Insurance Providers Payer Name Payer Address Payer Phone Subscriber Number Group Number Insured Name Patient Relationship to Insured Coverage Start Date Coverage End Date [place] [address] [place] [address] [id number] JESICACLAUDIA Self - patient is the insured MEDICAID OF [facility] [address] [place] [address] [id number] JESICACLAUDIA LOPEZ Self - patient is the insured Medical (General) History Medical History History ICD Code egd abd pain epigastric pain benign heart murmur-for which no antibio tic prophylaxis are taken. anxiety attacks allergies
--- OUTSIDE RECORDS SUMMARY | 2025-07-16 09:30 | XMS_ITS | Encounter Summary ---
Author Organization [employer] [facility] Address [address] [place] [address] Care Team Providers Care Design Project Manager Name Role Phone Quinn Herndon MD Primary Care Provider [phone] April Vizcaino MD Primary Care Provider Unavailabl e Encounter Details Date Type Department Care Team Description 09/10/2013 Transfer Records Medical Records [address] [place] [address] Abstract, Provider Social History Tobacco Use Types [...] on filedocumented in this encounter Care Teams Design Project Manager Relationship Specialty Start Date End Date Quinn Herndon MD [address] [place] [phone] PCP - General Internal Medicine 08/25/13 11/26/16 April Vizcaino MD [address] [place] [address] PCP - General Internal Medicine 11/27/16 documented as of this encounter
--- OUTSIDE RECORDS SUMMARY | 2025-07-16 09:30 | XMS_ITS | Encounter Summary ---
Author Organization [facility] Address [address] [place] [address] Care Team Providers Care Client Solutions Director Name Role Phone Quinn Herndon MD Primary Care Provider [phone] April Vizcaino MD Primary Care Provider Unavailabl e Encounter Details Date Type Department Care Team Description 09/16/2013 Night Triage Doc Medical Records [address] [place] [address] Abstract, Provider Social History Tobacco Use Types [...] on filedocumented in this encounter Care Teams Client Solutions Director Relationship Specialty Start Date End Date Quinn Herndon MD [address] [place] [address] [phone] PCP - General Internal Medicine 08/25/13 11/26/16 April Vizcaino MD [address] [place] [address] PCP - General Internal Medicine 11/27/16 documented as of this encounter
--- OUTSIDE RECORDS SUMMARY | 2025-07-16 09:30 | XMS_ITS | Continuity of Care Document ---
Author Name Xavi Guaman Address [address] [place] [address] Organization Unknown Address [address] [place] [address] Medications No known medications Problems No known problems
--- OUTSIDE RECORDS SUMMARY | 2025-07-16 09:30 | XMS_ITS | Encounter Summary ---
Author Organization [employer] [facility] Address [address] [place] [address] Care Team Providers Care Drug Abuse Social Worker Name Role Phone Quinn Herndon MD Primary Care Provider [phone] April Vizcaino MD Primary Care Provider Unavailabl e Encounter Details Date Type Department Care Team Description 12/18/2013 Marine Services Technician Report Medical Records [address] [place] [address] Gigi Salamanca MD Social History Tobacco Use [...] on filedocumented in this encounter Care Teams Drug Abuse Social Worker Relationship Specialty Start Date End Date Quinn Herndon MD [address] [place], [place] [phone] PCP - General Internal Medicine 08/25/13 11/26/16 April Vizcaino MD [address] [place] [address] PCP - General Internal Medicine 11/27/16 documented as of this encounter
--- OUTSIDE RECORDS SUMMARY | 2025-07-16 09:30 | XMS_ITS | Encounter Summary ---
Author Organization [employer] [facility] Address [address] [place] [address] Care Team Providers Care Ui Developer With Angular [employer] Name Role Phone April Vizcaino MD Primary Care Provider Unavailabl e Encounter Details Date Type Department Care Team Description 06/16/2018 Business Doc Medical Records [address] [place] [address] Abstract, Provider Social History Tobacco Use Types [...] on filedocumented in this encounter Care Teams Ui Developer With Angular J[employer] Relationship Specialty Start Date End Date April Vizcaino MD PCP - General Internal Medicine 11/27/16 documented as of this encounter
--- OUTSIDE RECORDS SUMMARY | 2025-07-16 09:30 | XMS_ITS | Encounter Summary ---
Author Organization [facility] [employer] [facility] Address [address] [place] [address] Care Team Providers Care Distribution Systems Superintendent Name Role Phone Quinn Herndon MD Primary Care Provider [phone] April Vizcaino MD Primary Care Provider Unavailabl e Encounter Details Date Type Department Care Team Description 02/17/2014 Food And Beverage Server Report Medical Records [address] [place] [address] Nick Bishop Social History Tobacco Use Types [...] on filedocumented in this encounter Care Teams Distribution Systems Superintendent Relationship Specialty Start Date End Date Quinn Herndon MD [address] [place], [place] [phone] PCP - General Internal Medicine 08/25/13 11/26/16 April Vizcaino MD [address] [place] [address] PCP - General Internal Medicine 11/27/16 documented as of this encounter
--- OUTSIDE RECORDS SUMMARY | 2025-07-16 09:30 | XMS_ITS | Encounter Summary ---
Author Organization [facility] Address [address] [place] [address] Care Team Providers Care Plasma Specialist Name Role Phone Quinn Herndon MD Primary Care Provider [phone] April Vizcaino MD Primary Care Provider Unavailabl e Encounter Details Date Type Department Care Team Description 02/10/2016 Night Triage Doc Medical Records [address] [place] [address] Abstract, Provider Social History Tobacco Use Types [...] on filedocumented in this encounter Care Teams Plasma Specialist Relationship Specialty Start Date End Date Quinn Herndon MD [address] [place], [place] [phone] PCP - General Internal Medicine 08/25/13 11/26/16 April Vizcaino MD [address] [place] [address] PCP - General Internal Medicine 11/27/16 documented as of this encounter
--- OUTSIDE RECORDS SUMMARY | 2025-07-16 09:30 | XMS_ITS | Continuity of Care Document ---
Author Name [facility] Address [address] [place] [address] Organization Unknown Address [address] [place] [address] Medications No known medications Problems No known problems
--- OUTSIDE RECORDS SUMMARY | 2025-07-16 09:30 | XMS_ITS | Encounter Summary ---
Author Organization [facility] [employer] [facility] Address [address] [place] [address] Care Team Providers Care Delinquency Counselor Name Role Phone Quinn Herndon MD Primary Care Provider [phone] April Vizcaino MD Primary Care Provider Unavailabl e Encounter Details Date Type Department Care Team Description 12/16/2015 Orders Only Adult Medicine [address] [phone] Joshua Palacios PA-C [address] [place] [address] Social History Tobacco Use Types Packs/Day Years [...] on filedocumented in this encounter Care Teams Delinquency Counselor Relationship Specialty Start Date End Date Quinn Herndon MD [address] [place] [address] PCP - General Internal Medicine 08/25/13 11/26/16 April Vizcaino MD [address] [place] [address] PCP - General Internal Medicine 11/27/16 documented as of this encounter
--- OUTSIDE RECORDS SUMMARY | 2025-07-16 09:30 | XMS_ITS | Clinical Summary ---
Author Organization [facility] Address [address] [facility] [address] [place] [address] Phone Care Team Providers Care Blade Worker Name Role Phone Unavailable Primary Care Provider [...] B [place] & B Member Subscriber Plan / Payer ( fective 2006-Present) Name:Zoila Giron Member ID:[id number] Relation to Subscriber:Self Name:Zoila Giron Subscriber ID:[id number] Payer ID:[id number] Group ID:Not on file Type:Medicare Address: [employer] [address] [place] [address] [place] & B [place] B [facility] Additional Source Comments The information contained in this document represents components of the legal health record. It is not the complete legal health record.[facility]
--- OUTSIDE RECORDS SUMMARY | 2025-07-16 09:30 | XMS_ITS | Encounter Summary ---
Author Organization [employer] [facility] Address [address] [place] [address] Care Team Providers Care Shoe Cleaner Name Role Phone Quinn Herndon MD Primary Care Provider [phone] April Vizcaino MD Primary Care Provider Unavailabl e Encounter Details Date Type Department Care Team Description 09/28/2014 Release of Information Medical Records [address] [place] [address] Abstract, Provider Social History Tobacco Use Types [...] on filedocumented in this encounter Care Teams Shoe Cleaner Relationship Specialty Start Date End Date Quinn Herndon MD [address] [place], [place] [phone] PCP - General Internal Medicine 08/25/13 11/26/16 April Vizcaino MD [address] [place] [address] PCP - General Internal Medicine 11/27/16 documented as of this encounter
--- OUTSIDE RECORDS SUMMARY | 2025-07-16 09:30 | XMS_ITS | Encounter Summary ---
Author Organization [employer] [facility] Address [address] [place] [address] Care Team Providers Care Optics Technical Officer Name Role Phone Quinn Herndon MD Primary Care Provider [phone] April Vizcaino MD Primary Care Provider Unavailabl e Encounter Details Date Type Department Care Team Description 12/31/2013 Night Triage Doc Medical Records [address] [place] [address] Abstract, Provider Social History Tobacco Use Types [...] on filedocumented in this encounter Care Teams Optics Technical Officer Relationship Specialty Start Date End Date Quinn Herndon MD [address] [place] [address] [phone] PCP - General Internal Medicine 08/25/13 11/26/16 April Vizcaino MD [address] [place] [address] PCP - General Internal Medicine 11/27/16 documented as of this encounter
--- OUTSIDE RECORDS SUMMARY | 2025-07-16 09:30 | XMS_ITS | Continuity of Care Document ---
Author Name Xavi Guaman Address [address] [place] [address] Organization Unknown Address [address] [place] [address] Medications No known medications Problems No known problems
--- OUTSIDE RECORDS SUMMARY | 2025-07-16 09:30 | XMS_ITS | Encounter Summary ---
Author Organization [facility] Address [address] [place] [address] Care Team Providers Care Template Worker Name Role Phone Quinn Herndon MD Primary Care Provider [phone] April Vizcaino MD Primary Care Provider Unavailabl e Encounter Details Date Type Department Care Team Description 09/21/2014 Business Doc Medical Records [address] [place] [address] Abstract, Provider Social History Tobacco Use Types [...] on filedocumented in this encounter Care Teams Template Worker Relationship Specialty Start Date End Date Quinn Herndon MD [address] [place], [place] [phone] PCP - General Internal Medicine 08/25/13 11/26/16 April Vizcaino MD [address] [place] [phone] PCP - General Internal Medicine 11/27/16 documented as of this encounter
--- OUTSIDE RECORDS SUMMARY | 2025-07-16 09:31 | XMS_ITS | Encounter Summary ---
Author Organization [facility] Address [address] [place] [address] Care Team Providers Care Bundle Breaker Name Role Phone Quinn Herndon MD Primary Care Provider [phone] April Vizcaino MD Primary Care Provider Unavailabl e Encounter Details Date Type Department Care Team Description 11/06/2016 Hospital Medical Records [address] [place] [address] Brendan Zamoar MD [address] [place] [address] [phone] Social History Tobacco Use Types Packs/Day Years [...] on filedocumented in this encounter Care Teams Bundle Breaker Relationship Specialty Start Date End Date Quinn Herndon MD [address] [place] [address] [phone] PCP - General Internal Medicine 08/25/13 11/26/16 April Vizcaino MD [address] [place] [address] PCP - General Internal Medicine 11/27/16 documented as of this encounter
--- OUTSIDE RECORDS SUMMARY | 2025-07-16 09:31 | XMS_ITS | Encounter Summary ---
Author Organization [employer] [facility] Address [address] [place] [address] Care Team Providers Care Bridge Maintainer Name Role Phone Quinn Herndon MD Primary Care Provider [phone] April Vizcaino MD Primary Care Provider Unavailabl e Encounter Details Date Type Department Care Team Description 11/16/2016 Night Triage Doc Medical Records [address] [place] [address] Abstract, Provider Social History Tobacco Use Types [...] on filedocumented in this encounter Care Teams Bridge Maintainer Relationship Specialty Start Date End Date Quinn Herndon MD [address] [place] [address] [phone] PCP - General Internal Medicine 08/25/13 11/26/16 April Vizcaino MD [address] [place] [address] PCP - General Internal Medicine 11/27/16 documented as of this encounter
== END 2025-07-16 09:26 | disposition home or self-care (01) ==
LOC: HO.HMCH 08:31
PROVIDERS: PCP Internal Medicine; Visit Provider Internal Medicine
DX: Z00.00 Encounter for general adult medical examination without abnormal findings (principal); J44.89 Other specified chronic obstructive pulmonary disease; R35.0 Frequency of micturition; K21.9 Gastro-esophageal reflux disease without esophagitis; Z12.11 Encounter for screening for malignant neoplasm of colon; E66.3 Overweight; I70.0 Atherosclerosis of aorta; F41.1 Generalized anxiety disorder; Z12.31 Encounter for screening mammogram for malignant neoplasm of breast

== ENCOUNTER → 2025-07-16 08:31 | Outpatient (BNVA) | payer OTHER, SELFPAY | PROVIDERS: PCP Internal Medicine; Visit Provider Internal Medicine | DX: Z00.00 Encounter for general adult medical examination without abnormal findings (principal); J44.89 Other specified chronic obstructive pulmonary disease; R35.0 Frequency of micturition; K21.9 Gastro-esophageal reflux disease without esophagitis; E66.3 Overweight; I70.0 Atherosclerosis of aorta; F41.1 Generalized anxiety disorder; E78.00 Pure hypercholesterolemia, unspecified; N32.81 Overactive bladder; K30 Functional dyspepsia; Z79.899 Other long term (current) drug therapy | CPT/HCPCS: 96127; 99396 ==

== ENCOUNTER 2025-08-03 10:18 | Outpatient (REF) | payer OTHER, SELFPAY ==
[2025-08-03 14:27] LABS: Resp Syncy Virus RNA Qual PCR NEGATIVE (Negative); SARS COV2 PCR INHOUSE NEGATIVE (Negative)
== END 2025-08-03 10:19 | disposition home or self-care (01) ==
LOC: HO.LNP 10:18
PROVIDERS: PCP Internal Medicine; Visit Provider Hospitalist
DX: U07.1 COVID-19 (principal); J06.9 Acute upper respiratory infection, unspecified; J45.50 Severe persistent asthma, uncomplicated; J30.9 Allergic rhinitis, unspecified; J98.4 Other disorders of lung; R93.3 Abnormal findings on diagnostic imaging of other parts of digestive tract; Z87.891 Personal history of nicotine dependence
CPT/HCPCS: 87637; 99212

== ENCOUNTER 2025-08-03 10:18 | Outpatient (AMB) | payer OTHER, SELFPAY ==
[2025-08-03 10:24] VITALS: BP 124/78; PULSE 92; O2SAT 95; BMI 28.9
--- NOTE | 2025-08-03 10:24 | A.OFFVIS_ITS ---
Vital Signs 08/03/25 10:24 Height 5 ft 4 in Weight 168 lb 10.458 oz BMI 28.9 BP 124/78 Blood Pressure Location Lt brachial Position Sitting Pulse 92 Pulse Source Pulse Oximeter Pulse Oximetry (%) 95 Oxygen Delivery Method Room Air Intake Visit Reasons: Asthma Engine Lathe Set Up Operator Required: No Accompanied by: Self / Same As Patient Allergies Clindamycin HCl Allergy (Intermediate, Verified 08/03/25 16:02) esophagus, trouble swallowing ibuprofen Allergy (Intermediate, Verified 08/03/25 16:02) nausea oxycodone (OXYCODONE) Allergy (Intermediate, Verified 08/03/25 16:02) palpitations, hyper tramadol (TRAMADOL) Allergy (Intermediate, Verified 08/03/25 16:02) palpitations, hyper vilazodone (Viibryd) Allergy (Intermediate, Verified 08/03/25 16:02) dry mouth and tremors NSAIDS (Non-Steroidal Anti-Inflamma (NSAIDS (NON-STEROIDAL ANTI-INFLAMMA) Allergy (Mild, Verified 08/03/25 16:02) STOMACH UPSET gabapentin Allergy (Unknown, Verified 08/03/25 16:02) Unknown pseudoephedrine (Sudafed) Allergy (Unknown, Verified 08/03/25 16:02) Unknown zolpidem (Ambien) Allergy (Unknown, Verified 08/03/25 16:02) Unknown bupropion (BUPROPION) Adverse Reaction (Intermediate, Verified 08/03/25 16:02) HTN, BLURRY VISION levofloxacin Adverse Reaction (Intermediate, Verified 08/03/25 16:02) weakness, nausea/vomiting quetiapine (From Seroquel) Adverse Reaction (Intermediate, Verified 08/03/25 16:02) patient states HPI Comments Details: The patient is a 55 year woman with a known history of asthma who has been developing worsening respiratory symptoms. She has had multiple evaluations in urgent care and also with her primary care doctor due to worsening productive cough and bronchitis. The patient responds to antibiotics and prednisone fairly well. But then when she completes the course her symptoms again recurred. The recently she was started on Symbicort which is a good inhaler. Also start the productive cough with green sputum. She has denies any allergy testing in the past. The patient denies any significant exposures either. The patient did undergo pulmonary function studies recently. We did personally review the results. Of has significant small airways disease suggestive of her asthma but also has moderate degree of restrictive she in the lung volumes which is unclear in etiology. She did have a chest x-ray but not diagnostic. Therefore I will request a CT scan of the chest to better assess her symptoms and her very abnormal PFTs. The patient will also undergo blood work to further address any triggers or precipitants of her respiratory symptoms. 02/18/2024 the patient is here for sick visit. She is having worsening respiratory symptoms for the last 2 weeks. She has significant chest tightness and wheezing. She went to [facility] what she was evaluated for sick visit and was given a course of antibiotics and prednisone. Initially felt better but then when she prednisone stopped her symptoms we occur. The patient also had a chest x-ray in urgent care. She was told she had pneumonia. There she was given additional antibiotics. The patient continues have significant cough at times it is nonproductive but she has been able to expectorate some phlegm specially after her nebulized treatments. Sometimes she chokes up the phlegm. She did have a CT scan of the chest that we personally reviewed. It appears she has significant mosaic pattern suggesting significant air trapping consistent with an asthma flare-up. In the office she does have significant bronchospastic coughing very diminished breath sounds. She was given 2 DuoNeb treatments with partial improvement and also given Solu-Medrol. She is going to need to go on another course of prednisone taper and also antibiotics. The patient will monitor closely symptoms. If she has no better she will call us again. Otherwise will follow-up in 4-6 weeks. 03/31/2024 the patient is here for a pulmonary follow-up visit. She is feeling better since the last time. She did require Solu-Medrol and a long course of prednisone. She also required antibiotics. Right now she is doing better although she still having wheezing on a regular basis. She has more wheezing when she goes and takes a shower. Denies any mold exposure although she does not know if there is any water damage. The patient also has known significant allergies. We did check her allergies back in September and her IgE level is elevated 197. Eosinophils were stable. The patient is going to be maximizing her respiratory therapy by switching over from Symbicort to breztri. She also start Singulair. In the meantime with the elevated IgE her significant allergies she also will be a good candidate for Xolair. Will go ahead and request to see if we can get her activated on Xolair while we assess her response to Symbicort and Singulair. She continues have wheezing on examination. I do believe that biologic therapy will be the best approach for her. 07/13/2024 the patient is here for a pulmonary follow-up visit. She continues to have some difficulty with breathing. The Xolair has been very effective for her. Although does feel like her symptoms reoccur before her next dose. Seems like she needs additional therapy. Therefore, we did recheck her IgE and now is above 500. We did recalculate the Xolair dose and she is now recommended to get the full dose of 375 mg subcu every 2 weeks. In view of her worsening symptoms will go ahead and start her on the higher dose based on the IgE level. Meantime she did have persistent GI symptoms with underlying reflux and dysphagia. Barium swallows was indeed abnormal reflux in mucosal changes. Therefore, will go ahead and refer her to GI at this point for further evaluation. The patient will continue with current respiratory therapy. She is going to restart the Singulair because of significant allergies. She will follow-up in 3-4 months. If she has any worsening symptoms she will call for further evaluation. 11/16/2024 the patient is here for pulmonary follow-up visit. Overall she is doing well from a respiratory status. She did increase the Xolair to 375 mg twice a week and she is tolerating that well. In addition to that she is using her Breztri inhaler. She has not had any recent exacerbations which is stephen ssuring. She does complaint of postnasal drip. Her nasal spray was not approved. Now she is having ache of her right ear. It is moderate severity. Hurts to move it. Her a little bit to swallow with it. Feels that she is getting sick with the ear infection. The ear looks a little inflamed although has a lot of wax and difficult to completely see the tympanic membrane. The patient also has been dealing with depression. She is going to start ECT therapy soon. She is also waiting for GI appointment which is going to be in November. At least from a pulmonary standpoint she is doing well will continue the therapy and treated for the infection of the ear and ultimately will follow- up in 6-8 months. If she has any issues prior to this she will call for an earlier assessment. 08/03/2025 the patient is here for sick visit. She has been sick now for couple days with some chest tightness and heaviness and burning. She was exposed to COVID-19 from her grandchild. She has been testing negative. She does complaint of worsening chest tightness. The patient has been using her respiratory medications as prescribed. She also has a nebulizer. I did test her for COVID, RSV and flu. Will waiting for the results. In the meantime will go ahead and continue on the current respiratory therapy and start her also on therapy for a respiratory illness. [facility] Medical History URI (upper respiratory infection) Major depressive disorder, recurrent severe without psychotic features Seizure disorder Ingrown left greater toenail Vitamin D deficiency Bronchitis Acute bronchitis Left leg numbness Chronic restrictive lung disease Asthma-COPD overlap syndrome Chronic allergic rhinitis Palpitation SARS-CoV-2 positive Generalized anxiety disorder Allergy to vaccine Low back pain Closed left clavicular fracture History of miscarriage Temporal lobe epilepsy Hypercholesterolemia Fibromyalgia Migraine Bile salt-induced diarrhea Insomnia GERD (gastroesophageal reflux disease) Surgical History H/O colonoscopy History of esophagogastroduodenoscopy (EGD) (~2017) History of cholecystectomy Family History Father Cancer CVD (cerebrovascular disease) Mother CVD (cerebrovascular disease) Sister Breast cancer Family/Other Brain cancer Paternal Uncle Colon cancer Paternal Grandmother No problems noted. Other Mental health disorder Stomach cancer Social History Housing: Apartment Alcohol intake: never Patient Tobacco Use Status: Former Tobacco user Tobacco use type: Cigarette Years Smoked: 1 pack per week stopped 2021 e-Cigarette/Vaping Use: Never Used Second Hand Smoke Exposure: Yes service: No Current occupational status: unemployed Gender identity: Female Cognitive needs: No Hearing needs: No Vision needs: Yes Review of Systems Const Denies chills, Denies excessive sweating, Denies fever(s), Denies headache(s) and Denies night sweats Eyes Denies dry eyes, Denies irritation and Denies itchy eyes ENT Reports otalgia, Denies headache(s), Reports nasal congestion, Reports nasal discharge, Denies post nasal drip and Denies sore throat Card Denies chest pain, Denies chest pain at rest, Denies chest pain with activity, Denies claudication, Denies leg edema, Reports dyspnea on exertion, Denies orthopnea and Denies paroxysmal nocturnal dyspnea Resp Reports chest congestion, Reports cough, Denies excessive phlegm production, Reports dyspnea on exertion, Denies stridor and Reports wheezing Musc Denies myalgias Neuro Denies confusion and Denies headache(s) Psych Denies confusion Endo Denies excessive sweating Jonnathan/Lymph Denies lymphadenopathy Aller/Immun Denies itchy eyes, Denies seasonal rhinorrhea and Reports wheezing Physical Exam Vital Signs: Last Vital Signs Pulse 92 08/03/25 10:24 BP 124/78 08/03/25 10:24 Pulse Ox 95 08/03/25 10:24 Oxygen Delivery Method Room Air 08/03/25 10:24 BMI result Body Mass Index 28.9 Const General: No confusion Orientation/consciousness: No confusion HEENT Head: Yes normocephalic Ears: external ear abnormal pain with movement of external ear on the right General nose exam: Abnormal mucous membranes and turbinates present Neck Neck: Yes supple Chest Chest palpation & inspection: normal inspection of the chest Resp Effort & Inspection: normal respiratory effort and prolonged expiratory phase Auscultation: diminished lung sounds Cardio Rate: regular rate Rhythm: regular rhythm Heart sounds: S1 normal heart sound present and S2 normal heart sound present GI Palpation (GI): Soft to palpation Skin General skin exam: no rashes or lesions noted Neuro General: No confusion Extrem General: Yes no clubbing, cyanosis or edema Assessment & Plan Assessment & Plan (1) URI (upper respiratory infection): Code(s): J06.9 - Acute upper respiratory infection, unspecified Category: Medical Qualifiers: URI type: unspecified viral URI Qualified Code(s): J06.9 - Acute upper respiratory infection, unspecified (2) Asthma: Code(s): J45.909 - Unspecified asthma, uncomplicated Category: Medical Qualifiers: Asthma severity: severe Asthma persistence: persistent Asthma complication type: uncomplicated Qualified Code(s): J45.50 - Severe persistent asthma, uncomplicated (3) Chronic allergic rhinitis: Code(s): J30.9 - Allergic rhinitis, unspecified Category: Medical (4) Chronic restrictive lung disease: Code(s): J98.4 - Other disorders of lung Category: Medical (5) Abnormal barium swallow: Code(s): R93.3 - Abnormal findings on diagnostic imaging of other parts of digestive tract Category: Medical Plan continue Breztri continue singulair continue Zyrtec start ZTX JUDE as needed Xolair 375mg SC every 2 weeks RSV/FLU/SARS negative F/U 8-12 months Orders: Orders SARS-CoV2/FLU/RSV Today J06.9 - Acute upper respiratory infection, unspecified Medications: New azithromycin 500 mg PO DAILY 5 tabs 0RF 5 days Refilled lsbkqlglba-ecmlcnir-mpdjcbedbg 160-9-4.8 mcg/actuation (Breztri Aerosphere) 2 inhalations inhalation BID 10.7 grams 11RF 30 days albuterol sulfate 90 mcg/actuation (Ventolin HFA) 1 inh inhalation QID PRN 8.5 grams 0RF shortness of breath or wheezing Coding Level of Care Code Est Pt Level 4 (20907) Diagnoses Viral upper respiratory tract infection J06.9 URI type: unspecified viral URI Severe persistent asthma without complication J45.50 Asthma severity: severe Asthma persistence: persistent Asthma complication type: uncomplicated Chronic allergic rhinitis J30.9 Chronic restrictive lung disease J98.4 Abnormal barium swallow R93.3 Time Spent (min) 17
--- OUTSIDE RECORDS SUMMARY | 2025-08-03 13:27 | XMS_ITS | Clinical Summary ---
Author Organization [facility] Address [address] [place] [id number] Phone Care Team Providers Care Jewelry Facer Name Role Phone Unavailable Primary Care Provider [...] B [place] & B [facility] Additional Source Comments The information contained in this document represents components of the legal health record. It is not the complete legal health record.[facility]
--- OUTSIDE RECORDS SUMMARY | 2025-08-03 13:27 | XMS_ITS | Clinical Summary ---
Author Organization [facility] it Address [address] [place] [address] Care Team Providers Care Ship Harbor Pilot Name Role Phone April Vizcaino MD Primary Care Provider [phone] Social History Tobacco Use Types Packs/Day Years [...] 10/30/2022 Social Influencers of Health Screening 10/30/2022 DTaP,Tdap,and Td Vaccines (2 - Td or Tdap) 09/17/2024 09/17/2014 Depression Screening 11/18/2024 COVID-19 Vaccine ( - 2023-2 5 season) 2025 Influenza Vaccine (#1) 2025 09/17/2014 HIB Vaccines [...] RESULTING AGENCY - 06/18/2018 9:05 AM EDT [id number] THINPREP PAP, IMAGED: ATYPICAL SQUAMOUS CELLS OF [...] Recently Relevant to Health Maintenance Care Teams Ship Harbor Pilot Relationship Specialty Start Date End Date April Vizcaino MD [address] [place] [address] [address] [facility] [place] [address] PCP - General Internal Medicine 11/27/16
--- OUTSIDE RECORDS SUMMARY | 2025-08-03 13:28 | XMS_ITS | Patient Health Record ---
Author Organization [facility] Address [address] [place] [address] Care Team Providers Care Welder Gas Tungsten Arc Name Role Phone Po April SHEEHAN Primary [...] Status W/U Status Risk Notes Problem Nausea (816716151) Nausea (787.02) Active confirmed Problem Epigastric pain (17542312) Epigastric pain (789.06) Active confirmed Plan Of Treatment Future Test Test Name Order Date UPPER GI ENDOSCOPY 07/17/2013 Insurance Providers Payer Name Payer Address Payer Phone Subscriber Number Group Number Insured Name Patient Relationship to Insured Coverage Start Date Coverage End Date MEDICARE OF [place] [address] [place] [address] [id number] JESICACLAUDIA Self - patient is the insured MEDICAID OF [facility] [address] [place] [address] [id number] JESICACLAUDIA LOPEZ Self - patient is the insured Medical (General) History Medical History History ICD Code egd abd pain epigastric pain benign heart murmur-for which no antibio tic prophylaxis are taken. anxiety attacks allergies
== END 2025-08-03 11:23 | disposition home or self-care (01) ==
LOC: HO.HPS 10:19
PROVIDERS: PCP Internal Medicine; Visit Provider Hospitalist
DX: J06.9 Acute upper respiratory infection, unspecified (principal); J45.50 Severe persistent asthma, uncomplicated; J30.9 Allergic rhinitis, unspecified; J98.4 Other disorders of lung; R93.3 Abnormal findings on diagnostic imaging of other parts of digestive tract
CPT/HCPCS: 99214

== ENCOUNTER 2025-08-03 16:04 | Outpatient (AMB) | payer OTHER, SELFPAY ==
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
== END 2025-08-03 17:25 | disposition home or self-care (01) ==
LOC: HO.HMCH 16:04
PROVIDERS: PCP Internal Medicine; Visit Provider Internal Medicine
DX: U07.1 COVID-19 (principal)

== ENCOUNTER 2025-08-16 08:21 | Outpatient (AMB) | payer OTHER, SELFPAY ==
--- NOTE | 2025-08-16 08:24 | MHC.OFFVIS ---
Intake Visit Reasons: hitory of kidney stones Intake Note: patient presents today for: new pt for lower urinary tract symptoms urology medications: oxybutynin blood thinners: none smoker: no Instrument Specialist Required: No Accompanied by: Self / Same As Patient Allergies Clindamycin HCl Allergy (Intermediate, Verified 08/16/25 08:42) esophagus, trouble swallowing ibuprofen Allergy (Intermediate, Verified 08/16/25 08:42) nausea oxycodone (OXYCODONE) Allergy (Intermediate, Verified 08/16/25 08:42) palpitations, hyper tramadol (TRAMADOL) Allergy (Intermediate, Verified 08/16/25 08:42) palpitations, hyper vilazodone (Viibryd) Allergy (Intermediate, Verified 08/16/25 08:42) dry mouth and tremors NSAIDS (Non-Steroidal Anti-Inflamma (NSAIDS (NON-STEROIDAL ANTI-INFLAMMA) Allergy (Mild, Verified 08/16/25 08:42) STOMACH UPSET gabapentin Allergy (Unknown, Verified 08/16/25 08:42) Unknown pseudoephedrine (Sudafed) Allergy (Unknown, Verified 08/16/25 08:42) Unknown zolpidem (Ambien) Allergy (Unknown, Verified 08/16/25 08:42) Unknown bupropion (BUPROPION) Adverse Reaction (Intermediate, Verified 08/16/25 08:42) HTN, BLURRY VISION levofloxacin Adverse Reaction (Intermediate, Verified 08/16/25 08:42) weakness, nausea/vomiting quetiapine (From Seroquel) Adverse Reaction (Intermediate, Verified 08/16/25 08:42) patient states Medication List - Last Reconciled 08/16/25 by SHIVANI Hart albuterol sulfate 2.5 mg (3 mL) inhalation QID PRN albuterol sulfate 90 mcg/actuation (Ventolin HFA) 1 inh inhalation QID PRN amitriptyline 10 mg PO BEDTIME ascorbate calcium (vitamin C) 1 g PO Q6H azelastine-fluticasone 137-50 mcg/spray (Dymista) 1 spray intranasal BID azithromycin 500 mg PO DAILY 5 days [id number]-ytkbflnc-zfsqnqcmtz 160-9-4.8 mcg/actuation (Breztri Aerosphere) 2 inhalations inhalation BID 30 days calcium carbonate 1,000 mg (2 x 500 mg calcium (1,250 mg)) PO DAILY cetirizine 10 mg PO DAILY cholecalciferol (vitamin D3) 25 mcg PO DAILY clonazepam 1 mg PO TID PRN 30 days dexlansoprazole (Dexilant) 60 mg PO DAILY diclofenac sodium 1% topical PRN epinephrine (EpiPen 2-Barrera) 0.3 mg (0.3 mL) IM Q10M PRN 30 days eszopiclone (Lunesta) 3 mg PO BEDTIME ferrous sulfate (Feosol) 325 mg PO DAILY [GROWTH STRENGTH RECOVERY ] magnesium oxide 400 mg PO DAILY metoclopramide HCl 10 mg PO BID-TID PRN mirabegron ER (Myrbetriq) 25 mg PO DAILY 30 days nebulizers (Foxtrot Go Nebulizer) As directed omalizumab (Xolair) 375 mg (2.5 mL) subcut Q2W Paxlovid 300 mg (150 mg x 2)-100 mg (nirmatrelvir-ritonavir) take TWO 150 mg tablets of nirmatrelvir with ONE 100 mg tablet of ritonavir twice daily for 5 days PO NS prednisone 20 mg PO DAILY trazodone 50 mg PO BEDTIME PRN zinc 50 mg PO DAILY HPI Comments Details: Zoila is a 55-year-old female patient of Dr. Vizcaino. She has a past medical history of depression, seizure disorder, vitamin-D deficiency, bronchitis, chronic restrictive lung disease, asthma/COPD overlap syndrome, allergic rhinitis, anxiety, insomnia, low-back pain, fibromyalgia, hypercholesteremia, migraines, temporal lobe epilepsy, and GERD. She presents to the office today as a new patient for ongoing lower urinary tract symptoms she has been experiencing. In discussion with the patient today she reports noting over the last 7 months she has been having urinary urgency and urinary frequency. She reports having followed up at the ER and was given 5 mg of oxybutynin that she has not found helpful. She reports experiencing dry mouth. She reports typically she can urinate approximately 15 times between the hours of 08:00 to 17:00. She does report to be drinking 2 cups of coffee per day. She otherwise denies hematuria, dysuria, foul smelling urine, changes to urinary stream, flank pain, fever, and or chills. In office urinalysis results reviewed with the patient today. We did discussed potential causes of urinary urgency and frequency. We discussed further treatment options and risks and benefits of these treatment options. All questions were answered. She otherwise offers no other issues or concerns at this time. Urinary Symptoms Review - Increased urinary frequency, urinating 15 times between 8 AM and 5 PM. - Nocturia, waking up at 3:00 AM to urinate despite taking sleeping pills for insomnia. - Current medication: Oxybutynin 5 mg, causing dry mouth and tiredness, with limited efficacy. Discussion Notes I discussed with the patient that her urine analysis. We explored the possibility of overactive bladder and discussed dietary triggers such as caffeine, alcohol, and spicy foods that might exacerbate symptoms. I explained the treatment options, including pelvic floor therapy, medications, and potential procedures like uroDynamics, and recommended starting with an ultrasound of the kidneys and bladder. [facility] Medical History URI (upper respiratory infection) Major depressive disorder, recurrent severe without psychotic features Seizure disorder Ingrown left greater toenail Vitamin D deficiency Bronchitis Acute bronchitis Left leg numbness Chronic restrictive lung disease Asthma-COPD overlap syndrome Chronic allergic rhinitis Palpitation SARS-CoV-2 positive Generalized anxiety disorder Allergy to vaccine Low back pain Closed left clavicular fracture History of miscarriage Temporal lobe epilepsy Hypercholesterolemia Fibromyalgia Migraine Bile salt-induced diarrhea Insomnia GERD (gastroesophageal reflux disease) Surgical History H/O colonoscopy History of esophagogastroduodenoscopy (EGD) (~2017) History of cholecystectomy Family History Father Cancer CVD (cerebrovascular disease) Mother CVD (cerebrovascular disease) Sister Breast cancer Family/Other Brain cancer Paternal Uncle Colon cancer Paternal Grandmother No problems noted. Other Mental health disorder Stomach cancer Social History Housing: Apartment Alcohol intake: never Patient Tobacco Use Status: Former Tobacco user Tobacco use type: Cigarette Years Smoked: 1 pack per week stopped 2021 e-Cigarette/Vaping Use: Never Used Second Hand Smoke Exposure: Yes service: No Current occupational status: unemployed Gender identity: Female Cognitive needs: No Hearing needs: No Vision needs: Yes Review of Systems Const All systems reviewed & are unremarkable except as noted in HPI and below Physical Exam Const General: cooperative, healthy appearing, comfortable, no acute distress, well developed, alert and awake Orientation/consciousness: patient oriented x3 Limitations: no limitations HEENT Head: Yes normal to inspection, Yes normocephalic and Yes atraumatic Ears: hearing grossly normal bilaterally Eyes General: appearance normal, both eyes and all related structures Neck Neck: Yes normal visual inspection and Yes trachea midline Chest Chest palpation & inspection: normal inspection of the chest Resp Effort & Inspection: normal respiratory effort and able to speak in complete sentences Cardio Rate: regular rate GI Inspection: Yes normal to inspection General: Yes no CVA tenderness Back/Spine/Pelvis Back: no CVA tenderness Skin General skin exam: no rashes or lesions noted Neuro General: patient oriented x3 Extrem General: Yes normal to inspection Psych Appearance: grossly normal and well kempt Mental Status: mental status grossly normal Speech and movement: Normal speech and movement present and Clear speech present Affect: normal affect Attitude: cooperative Thought process: Normal thought process present Thought content: Normal thought content present Insight: Fair insight present (Psych) Judgement: Fair judgement present (Psych) Results AMB Urinalysis, Automated UA Leukoctes 0 Mey/uL Last Edit by HANS Conley on 08/16/25 08:30 UA Nitrite Last Edit by HANS Conley on 08/16/25 08:30 UA Urobilinogen 0.2 mg/dL Last Edit by HANS Conley on 08/16/25 08:30 UA Protein 0 mg/dL Last Edit by HANS Conley on 08/16/25 08:30 UA pH 6.0 Last Edit by HANS Conley on 08/16/25 08:30 UA Blood 0 Jordan/uL Last Edit by HANS Conley on 08/16/25 08:30 UA Specific [place] 1.005 Last Edit by HANS Conley on 08/16/25 08:30 UA Ketone Negative Last Edit by HANS Conley on 08/16/25 08:30 UA Bilirubin 0 mg/dL Last Edit by HANS Conley on 08/16/25 08:30 UA Glucose 0 mg/dL Last Edit by HANS Conley on 08/16/25 08:30 Results Reviewed Results Reviewed: Laboratory Last Values Urine pH (Auto) 6.0 08/16/25 08:29 Specific [place] (Auto) 1.005 08/16/25 08:29 Urine Protein (Auto) 0 mg/dL 08/16/25 08:29 Glucose (UA)(Auto) 0 mg/dL 08/16/25 08:29 Urine Ketones (Auto) Negative 08/16/25 08:29 Urine Blood (Auto) 0 [place]/uL 08/16/25 08:29 Urine Bilirubin (Auto) 0 mg/dL 08/16/25 08:29 Urine Urobilinogen (Auto) 0.2 mg/dL 08/16/25 08:29 Leukocyte Esterase (Auto) 0 Mey/uL 08/16/25 08:29 Assessment & Plan Assessment & Plan (1) Urinary frequency: Code(s): R35.0 - Frequency of micturition Category: Medical (2) Urinary urgency: Code(s): R39.15 - Urgency of urination Category: Medical Plan In office urinalysis results reviewed with the patient today; as noted above. Stop oxybutynin. Start Myrbetriq as discussed and prescribed. Will obtain retroperitoneal ultrasound for further assessment evaluation. We discussed bladder triggers and irritants. We discussed potential causes of lower urinary tract symptoms as well as further treatment options and risks and benefits of these treatment options. Information provided regarding lower urinary tract symptoms. Follow-up in 1-3 months with imaging to be completed prior and PVR; or sooner with any issues, concerns, and or questions. Orders: Orders US retroperitoneal comp Today R35.0 - Frequency of micturition, R39.15 - Urgency of urination AMB Urinalysis Automated Today Z13.9 - Encounter for screening, unspecified Medications: New mirabegron ER (Myrbetriq) 25 mg PO DAILY 30 tabs 3RF 30 days N30.10 - Interstitial cystitis (chronic) without hematuria, N32.81 - Overactive bladder, R35.1 - Nocturia, R39.15 - Urgency of urination Discontinued oxybutynin chloride ER Discontinued Reason: Doctor's Order 5 mg PO DAILY 90 tabs 0RF Patient Instructions: The patient had an opportunity to ask questions regarding the treatment plan. All questions were answered. Physical exam, labs, and imaging were discussed and reviewed in detail. As well as risks, benefits, and discussion of treatment choices. No major barriers to understanding were identified. The patient expressed understanding and agreement with the above treatment plan. The patient was made aware they should contact our office by phone for worsening of their current condition, the appearance of new symptoms, or with any questions or concerns. Compliance is encouraged with any medications and follow up testing that is ordered. It is a privilege to be allowed the opportunity to participate in? your urological care.? Again, if you have any questions or concerns If you have any questions or concerns please do not hesitate to contact me. The office is [phone]. This note is constructed using voice recognition software. While every effort has been made to ensure accuracy production truck driver errors may have been included. Yours sincerely, SHIVANI Hart Coding Level of Care Code New Pt Level 4 (98966) Diagnoses Urinary frequency R35.0 Urinary urgency R39.15
--- OUTSIDE RECORDS SUMMARY | 2025-08-16 08:38 | XMS_ITS | Patient Health Record ---
Author Organization [facility] Address [address] [place] [address] Care Team Providers Care Roundhouse Worker Name Role Phone Po April SHEEHAN [...] Status W/U Status Risk Notes Problem Nausea (260136443) Nausea (787.02) Active confirmed Problem Epigastric pain (24927904) Epigastric pain (789.06) Active confirmed Plan Of Treatment Future Test Test Name Order Date UPPER GI ENDOSCOPY 07/17/2013 Insurance Providers Payer Name Payer Address Payer Phone Subscriber Number Group Number Insured Name Patient Relationship to Insured Coverage Start Date Coverage End Date MED[place]ARE [place] [address] [place] [address] [id number] JESICACLAUDIA Self - patient is the insured MEDICAID OF [facility] [address] [place] [address] [id number] JESICACLAUDIA LOPEZ Self - patient is the insured Medical (General) History Medical History History ICD Code egd abd pain epigastric pain benign heart murmur-for which no antibio tic prophylaxis are taken. anxiety attacks allergies
--- OUTSIDE RECORDS SUMMARY | 2025-08-16 08:38 | XMS_ITS | Clinical Summary ---
Author Organization [facility] Address [address] [place] [phone] Phone Care Team Providers Care Wing Scorer Name Role Phone Unavailable Primary Care Provider [...] B [place] A & B [facility] Additional Source Comments The information contained in this document represents components of the legal health record. It is not the complete legal health record.[facility]
--- OUTSIDE RECORDS SUMMARY | 2025-08-16 08:38 | XMS_ITS | Clinical Summary ---
Author Organization [facility] it Address [address] [place] [address] Care Team Providers Care Waiter/Waitress Cabin Class Name Role Phone April Vizcaino MD Primary Care Provider [phone] Social History Tobacco Use Types Packs/Day Years [...] RESULTING AGENCY - 06/18/2018 9:05 AM EDT [id number] THINPREP PAP, IMAGED: ATYPICAL SQUAMOUS CELLS OF [...] Recently Relevant to Health Maintenance Care Teams Waiter/Waitress Cabin Class Relationship Specialty Start Date End Date April Vizcaino MD [address] [place] [address] [address] [facility] [place] [address] PCP - General Internal Medicine 11/27/16
== END 2025-08-16 08:43 | disposition home or self-care (01) ==
LOC: HO.HUSH 08:22
PROVIDERS: PCP Internal Medicine; Visit Provider Nurse Practitioner Family
DX: R35.0 Frequency of micturition (principal); R39.15 Urgency of urination; Z13.9 Encounter for screening, unspecified
CPT/HCPCS: 99204

== ENCOUNTER → 2025-08-16 08:21 | Outpatient (BNVA) | payer OTHER, SELFPAY | PROVIDERS: PCP Internal Medicine; Visit Provider Nurse Practitioner Family | DX: R35.0 Frequency of micturition (principal); R39.15 Urgency of urination | CPT/HCPCS: 81003; 99202 ==

== ENCOUNTER 2025-10-22 14:20 | Outpatient (AMB) | payer OTHER, SELFPAY ==
--- NOTE | 2025-10-22 14:59 | A.OFFPC_ITS ---
Vital Signs 10/22/25 15:00 Height 5 ft 4 in Weight 169 lb 4 oz BMI 29.0 BP 100/70 Blood Pressure Location Lt brachial Position Sitting Pulse 81 Pulse Source Pulse Oximeter Temp 97.1 F Temp Source Temporal Artery Scan Pulse Oximetry (%) 96 Oxygen Delivery Method Room Air Intake Visit Reasons: Fell twice Intake Note: Patient is here to follow up on Fell twice. Wire Rope Sales Representative Required: No Centerless Grinding Machine Adjuster: Not Required per policy Accompanied by: Self / Same As Patient Allergies Clindamycin HCl Allergy (Intermediate, Verified 10/22/25 14:59) esophagus, trouble swallowing ibuprofen Allergy (Intermediate, Verified 10/22/25 14:59) nausea oxycodone (OXYCODONE) Allergy (Intermediate, Verified 10/22/25 14:59) palpitations, hyper tramadol (TRAMADOL) Allergy (Intermediate, Verified 10/22/25 14:59) palpitations, hyper vilazodone (Viibryd) Allergy (Intermediate, Verified 10/22/25 14:59) dry mouth and tremors NSAIDS (Non-Steroidal Anti-Inflamma (NSAIDS (NON-STEROIDAL ANTI-INFLAMMA) Allergy (Mild, Verified 10/22/25 14:59) STOMACH UPSET gabapentin Allergy (Unknown, Verified 10/22/25 14:59) Unknown pseudoephedrine (Sudafed) Allergy (Unknown, Verified 10/22/25 14:59) Unknown zolpidem (Ambien) Allergy (Unknown, Verified 10/22/25 14:59) Unknown bupropion (BUPROPION) Adverse Reaction (Intermediate, Verified 10/22/25 14:59) HTN, BLURRY VISION levofloxacin Adverse Reaction (Intermediate, Verified 10/22/25 14:59) weakness, nausea/vomiting quetiapine (From Seroquel) Adverse Reaction (Intermediate, Verified 10/22/25 14:59) patient states Medication List - Last Reconciled 10/22/25 by Kae Celeste PA-C albuterol sulfate 2.5 mg (3 mL) inhalation QID PRN albuterol sulfate 90 mcg/actuation (Ventolin HFA) 1 inh inhalation QID PRN amitriptyline 10 mg PO BEDTIME ascorbate calcium (vitamin C) 1 g PO Q6H azelastine-fluticasone 137-50 mcg/spray (Dymista) 1 spray intranasal BID wzihcobmhi-nakgvsgm-taofyynfrv 160-9-4.8 mcg/actuation (Breztri Aerosphere) 2 inhalations inhalation BID 30 days calcium carbonate 1,000 mg (2 x 500 mg calcium (1,250 mg)) PO DAILY cetirizine 10 mg PO DAILY cholecalciferol (vitamin D3) 25 mcg PO DAILY clonazepam 1 mg PO TID PRN 30 days dexlansoprazole (Dexilant) 60 mg PO DAILY diclofenac sodium 1% topical PRN epinephrine (EpiPen 2-Barrera) 0.3 mg (0.3 mL) IM Q10M PRN 30 days eszopiclone (Lunesta) 3 mg PO BEDTIME ferrous sulfate (Feosol) 325 mg PO DAILY [GROWTH STRENGTH RECOVERY ] magnesium oxide 400 mg PO DAILY metoclopramide HCl 10 mg PO BID-TID PRN Myrbetriq ER (mirabegron) 25 mg PO DAILY 30 days NS naproxen 500 mg PO BID nebulizers (Aeroneb Go Nebulizer) As directed omalizumab (Xolair) 375 mg (2.5 mL) subcut Q2W trazodone 50 mg PO BEDTIME PRN zinc 50 mg PO DAILY Tobacco use date assessed: 10/22/25 Dental Screening Dental Screen Date: 08/03/25 HPI Fell twice HPI Details 55-year-old female with past medical his tory of GERD, fibromyalgia, hyp ercholesterolemia, chronic restrictive lung disease, depression, tobacco abuse, anxiety last seen 07/2025 coming in for acute problem. Presenting for evaluation of persistent left arm pain and recurrent falls.Patient reports a fall in August and September that were result of her legs giving out. She had not feel dizziness or lightheadedness prior to this event and just feels the legs gave out underneath her. Following the fall, she was seen at an urgent care for left arm painwhere an X-ray was negative, and she was diagnosed with a contusion. She was treated with naproxen and a muscle relax er, noting that naproxen was particularly effective. Despite this, she has had persistent pain in her left arm and shoulder, which limits her range of motion and makes activities like dressing difficult. COUNTS INCLUDE 234 BEDS AT THE [facility] Medical History URI (upper respiratory infection) Major depressive disorder, recurrent severe without psychotic features Seizure disorder Ingrown left greater toenail Vitamin D deficiency Bronchitis Acute bronchitis Left leg numbness Chronic restrictive lung disease Asthma-COPD overlap syndrome Chronic allergic rhinitis Palpitation SARS-CoV-2 positive Generalized anxiety disorder Allergy to vaccine Low back pain Closed left clavicular fracture History of miscarriage Temporal lobe epilepsy Hypercholesterolemia Fibromyalgia Migraine Bile salt-induced diarrhea Insomnia GERD (gastroesophageal reflux disease) Surgical History H/O colonoscopy History of esophagogastroduodenoscopy (EGD) (~2017) History of cholecystectomy Family History Father Cancer CVD (cerebrovascular disease) Mother CVD (cerebrovascular disease) Sister Breast cancer Family/Other Brain cancer Paternal Uncle Colon cancer Paternal Grandmother No problems noted. Other Mental health disorder Stomach cancer Social History Housing: Apartment Alcohol intake: never Patient Tobacco Use Status: Former Tobacco user Tobacco use type: Cigarette Years Smoked: 1 pack per week stopped 2021 e-Cigarette/Vaping Use: Never Used Second Hand Smoke Exposure: Yes service: No Current occupational status: unemployed Gender identity: Female Cognitive needs: No Hearing needs: No Vision needs: Yes Questionnaire Thrive Questionnaire Date Thrive assessed: 07/14/25 I am a: Patient What is your living situation today?: I have a steady place to live Within the past 12 months, did the food you bought not last and you didn't have the money to get more?: Sometimes True Within the past 12 months, did you worry whether your food would run out before you got money to buy more?: Sometimes True Do you have trouble paying for medicines?: No Do you have trouble getting transportation to medical appointments?: No Do you have trouble paying your heating and electricity bill?: Yes Do you have trouble taking care of your child, family member or friend?: I choose not to answer this question Do you have trouble with day-to-day activities such as bathing, preparing meals, shopping, managing finances, etc.?: Yes Are you currently unemployed and looking for a job?: Yes Are you interested in more education?: No THRIVE Score: 3 MONY-7 AMB Questionnaire MONY-7 Date MONY - 7 assessed: 12/09/24 Source: Developed by Drs. Fady Paredes, Arlen Stewart, Abhi Morris and colleagues, with an educational carina from [employer]. Fall Risk Assessment Fall Risk Assessment Fall risk assessment: 2 + Falls in past year Review of Systems Const Denies body aches, Denies chills and Denies fever(s) ENT Reports no additional complaints Card Denies chest pain, Denies syncope, Denies lightheadedness and Denies dyspnea Resp Denies dyspnea Reports no additional complaints Musc Reports as per HPI and Denies back pain Neuro Details: no numbness or tingling in UE Denies syncope Physical exam (Primary Care) Vital Signs: Last Vital Signs Temp 97.1 F 10/22/25 15:00 Pulse 81 10/22/25 15:00 BP 100/70 10/22/25 15:00 Pulse Ox 96 10/22/25 15:00 Oxygen Delivery Method Room Air 10/22/25 15:00 BMI result Body Mass Index 29.0 Tobacco/Smoking Status: Tobacco use Status Tobacco use date assessed 10/22/25 10/22/25 15:04 Patient Tobacco Use Status Former Tobacco user 10/22/25 15:04 Tobacco use type Cigarette 10/22/25 15:04 e-Cigarette/Vaping Use Never Used 10/22/25 15:04 Thrive Assessment: Date of Thrive Assessment Date Thrive assessed 07/14/25 10/22/25 15:04 Const General: cooperative, healthy appearing, comfortable and no acute distress HENMT Head: Yes normocephalic Ears: hearing grossly normal bilaterally General nose exam: Normal external nose present Eyes General: appearance normal, both eyes and all related structures Conjunctivae: conjunctivae normal Neck Neck: Yes full ROM and Yes no lymphadenopathy Resp Effort & Inspection: normal respiratory effort Cardio Rate: regular rate Extrem Other: intact strength, pulses and sensation in bilateral upper and lower extremities. pain to palpation over anterior aspect of left shoulder and left biceps without overlying bruising or swelling. pain with extension and internal rotation of the left shoulder General: Yes normal to inspection, Yes full ROM and No edema Psych Affect: normal affect Attitude: cooperative Insight: Good insight present (Psych) Judgement: Good judgement present (Psych) Coding Level of Care Code Est Pt Level 3 (63287) Diagnoses Left shoulder pain M25.512 Recurrent falls R29.6 Assessment & Plan Assessment & Plan (1) Left shoulder pain: Code(s): M25.512 - Pain in left shoulder Category: Medical Plan: The patient's persistent left shoulder and arm pain since her fall in August, despite a negative X-ray, is likely due to a soft tissue injury such as a rotator cuff strain or tendinitis. The plan includes a refill of naproxen, which she has found effective, and providing pain patches. A referral will be made to Orthopedics for further evaluation, which may include an MRI or a corticosteroid injection. Declining PT today (2) Recurrent falls: Code(s): R29.6 - Repeated falls Category: Medical Plan: The patient reports episodes of her legs giving out, resulting in falls, which may be due to muscle weakness. She has been instructed to begin home strengthening exercises, including bodyweight squats and lunges, and to increase walking. She should follow up if the episodes continue. A note will be provided to support a re-evaluation for increased QUALITY CONTROL SYSTEMS MANAGER hours due to her new mobility i ssues and fall risk. Discussed PT which was declined today. Plan This note was constructed using voice recognition software. While every effort has been made to ensure accuracy and roads superintendent, still areas may have been included sometimes these areas may affect the content or meeting of the given symptoms. Total time spent caring for the patient today was 20 minutes. This includes time spent before the visit reviewing the chart, time spent during the visit, and time spent after the visit and documentation. Patient was informed and verbally consented to the use of an ambient scribe for clinic note documentation during this visit. Orders: Referrals Orthopedics Referral M25.512 - Pain in left shoulder Medications: New naproxen 500 mg PO BID 30 tabs 0RF lidocaine 5% leave on most painful area for up to 12 hrs 1 patch topical DAILY 30 ea 0RF
[2025-10-22 15:00] VITALS: BP 100/70; PULSE 81; TEMP 36.2; O2SAT 96; BMI 29.0
--- OUTSIDE RECORDS SUMMARY | 2025-10-22 18:29 | XMS_ITS | Continuity of Care Document ---
Author Organization [facility] [employer] [facility], [facility] Address [address] [place] [address] Care Team Providers Care Boat Engine Mechanic Name Role Phone HIM CCA OTHER PO, RICHARD Primary Care Provider [phone] Assessment Encounter Date Assessment Date Assessment LastModified by Organization Details LastModified Time 08/20/2025 08/20/2025 Evaluation in the field was performed by my retail coverage merchandiser lead colleague, as noted above, I provided real-time direction and supervision for this visit. This is a 55yo F w/hx of asthma with about 9 days of congestion, productive cough, sore throat, occasional nausea, aches. Now SOB with exertion for the past few days. No SOB at rest, no chest pain. No fever. Has used albuterol neb once in the morning and at night while she has been sick. PE: General: Awake & alert, NAD Respiratory: CTAB. Chest rise equal bilat, no increased wob CV: Regular rate, normal peripheral perfusion Impression: Upper respiratory infection Asthma exacerbation Plan: -VSS, appears well -poc Covid and flu negative -DuoNeb given along with 60mg po prednisone. Will prescribe a 7 day course of prednisone. -Should continue nebulizer use and f/u PCP. Disposition: Remain at home We discussed the diagnostic uncertainty of home visits and the risk associated with this. In this case, the patient and I felt this to be an acceptable and reasonable amount of risk given the benefit of avoiding an ED visit. We discussed the need to seek care urgently/emerge ntly in the setting of any new or worsening serious symptoms. [email or web address] Not available 08/20/2025 21:57:14 Plan of Treatment Reminders Order Date Submit Date Provider Last Modified By Organization Details Last Modified Time Details Appointments None recorded. Lab rapid SARS CoV 2 Ag, QL IA, respiratory specimen 2024 025 [facility], [address] [place] [address], [id number] 22:12:43 rapid flu (A+B) 2024 025 [facility], [address] [place] [address], [id number] 22:12:43 Referral None recorded. Procedures None recorded. Surgeries None recorded. Imaging None recorded. Medication Orders prednisone 20 mg tablet 2024 025 [facility][id number], [address] [place] [place], [place], [phone], 21:57:15 ipratropium 0.5 mg-albutero l 3 mg (2.5 mg base)/3 mL nebulizatio n soln 2024 025 [employer] [facility] #[id number], [address] [place], [place], [phone], 21:49:18 prednisone 20 mg tablet 2024 025 [employer] [id number], [address] [place], [place], [phone], 21:49:18 Patient TargetsNo targets recorded. Patient InstructionsNo instructions recorded. Reason for Referral None Reported. Results Created Date Observation Date Name Description Value Unit Range Abnormal Flag Note LastModifiedBy Organization Detail LastModifiedTime Result Notes None recorded. Medical Equipment None Reported. Allergies Allergen ID Allergen Name Allergen Category Reaction Reaction Severity Criticality Documentation Date Start Date Code Code System Note Provider Name and Address Organization Details Recorded Time 47131 oxycodone medicatio n Not available Not available Not available 10/12/2024 7804 RxNorm Not Available [facility] - production 4 20:09:51 34045 Sudafed medicatio n Not available Not available Not available 10/12/202441764 2 RxNorm Not Available [facility] - production 20:09:51 71471 acetamino phen / dextromet horphan / doxylamin e / pseudoeph edrine medicatio n Not available Not available Not available 01/24/2025 65960 4 RxNorm Not Available [employer] [facility]ops 5 12:16:23 77700 Product containin g penicilli n (product) medicatio n Not available Not available Not available 06/05/2025 80117 8001 SNOMED Not Available [employer] [facility] 5 18:56:43 Medications Name Sig Start Date [...] t Available trazodone 50 mg tablet TAKE 1/2 TABLET BY MOUTH AT BEDTIME active Not [...] Not Available Not Available Not Avai lable fluconazole 200 mg tablet TAKE 2 TABLETS BY MOUTH DAILY FOR 14 DAYS active Not Available Not Available No t Available sucralfate 1 gram tablet TAKE 1 TABLET BY MOUTH AT BEDTIME active Not Available Not Available No t Available prednisone 20 mg tablet TAKE 1 TABLET BY MOUTH EVERY DAY active Not Available Not Available No t Available simvastatin 10 mg tablet TAKE 1 TABLET [...] Not Available Not Available No t Available cephalexin 500 mg capsule TAKE 1 CAPSULE BY MOUTH TWICE DAILY FOR 10 DAYS 08/29 completed Not Available Not Available Not Available oseltamivir 75 mg capsule TAKE 1 CAPSULE BY MOUTH TWICE A DAY FOR 5 DAYS 10/12 completed Not Available Not Available Not Available oxybutynin chloride ER 5 mg tablet,exte nded release 24 hr TAKE 1 TABLET BY MOUTH DAILY active Not Available Not Available No t Available montelukast 10 mg tablet TAKE 1 [...] Not Available Not Available No t Available polyethylen e glycol 3350 17 gram/dose oral powder MIX AND DRINK DIRECTED active Not Available Not Available No t [...] mg tablet TAKE 1 TABLET BY MOUTH FOUR TIMES DAILY BEFORE MEALS AND AT BEDTIME active Not Available Not Available No t Available amoxicillin 875 mg-potassiu m clavulanate 125 mg tablet TAKE 1 TABLET BY MOUTH EVERY 12 HOURS AFTER MEALS active Not Available Not Available No t Available azithromyci n 500 mg tablet TAKE 1 TABLET BY [...] Not Available Not Available No t Available Myrbetriq 25 mg tablet,exte nded release TAKE 1 TABLET BY MOUTH DAILY active Not Available Not Available No t Available Breztri Aerosphere 160 mcg-9mcg-4. 8mcg/actuat ion HFA aerosol inhaler INHALE 2 PUFFS BY MOUTH TWICE DAILY active Not Available Not Available No t Available Paxlovid 300 mg (150 mg x 2)-100 mg tablets in a dose pack TK 2 NIRMATREL VIR TS AND 1 RITONAVIR T TOGETHER PO BID FOR 5 DAYS active Not Available Not Available No t Available Vitals Date Recorded Oxygen saturation Body height Respiratory rate Heart rate Body temperature Body weight Systolic And Diastolic Provider Name and Address Organization Details Last Updated DateTime 5 95 % 162.56 cm 18 /min 76 /min 97.7 [degF] 05496.7 2 g 131/83 mm[Hg] Not Available [facility] 21:38:06 Social History None recorded. Functional Status None recorded. Mental Status None recorded. Family History Nothing Reported. Medical History No medical history recorded. Gynecological HistoryNo gynecological history recorded. Obstetrics History GPAL:G 0 P 0 0 0 0 Past Encounters Encounter ID Performer Location Encounter Start Date Encounter Closed Date Diagnosis/Indication Diagnosis SNOMED-CT Code Diagnosis ICD10 Code Diagnosis IMO Codes Diagnosis Note [id number] Xiomara Anand MD [facility] [address] [place] [address] 08/20/2025 21:38:02 08/21/2025 12:07:54 Upper respiratory infection 41406649 J06.9 [id number] Acute asthma 205404625 J 45.690 3130354 Health Concerns Section Related Observation LastModified by Organization Detai ls LastModified Time None Recorded Concern Status LastModified by Organization Details LastModified Time None Recorded Payers Encounter Date Sequence Insurance Name Policy Number Policy Benitez Covered Member ID Benitez Member ID Guarantor Name 08/20/2025 1 [facility] - DOS ON OR AFTER 2023 - DUAL ELIGIBLE - NURSING HOME OPTIONS AND ONE CARE (MEDICARE REPLACEMENT/ADV ANTAGE - HMO) Zoila Giron [id number] Zoila Giron Notes Date Note Type Note Provider Name and Address Organization Details Recorded Time 08/20/2025 text/html ROS as noted in the HPI HPI: 55 y.o. F c/o feeling ill x 9 days, noting grandson was sick w/ COVID ~3 wks ago. She c/o sore throat, productive cough w/ yellow sputum, body aches, nausea, diarrhea, L ear pain and tenderness under her eyes. No vomiting. Stools do not appear black or bloody. She has been hydrating w/ water and gatorade. Mbr states she has severe asthma, gets xolair injections q 2 wks. Resps unlabored w/ speech. No audible wheezing or stridor during call. She c/o increased CHEEK while ill, improved w/ inhaler and nebs. Mbr doesn't think she's had fevers, but is alternating Tylenol and ibuprofen and wonders about masking temps. No medical eval since s/sx started and she agreed to [facility] referral. Mbr was encouraged to notify her PCP of recent illness when able and was made aware she can call the [facility] back 10/06 for new or worsening s/sx. CP is Violet Arango, email: [email or web address]. .................. .................. .................. .................. .................. .................. .................. ............... [facility] Nurse Triage Notes ([place], [place]): Chief Complaints: Cough, Sore Throat PMH: Chronic Obstructive Pulmonary Disease (COPD), Asthma, Anxiety Disorder, Depression PMH Reviewed at 08/20/2025 Allergies Reviewed at 08/20/2025: Comments: HPI reviewed Ship Captain Organization Information for [facility] Business Legal Name: [employer]. Address: [address] [place] [address], Truck Technician: Jeremy Sweeney MD [facility] No.: [id number] Ship Captain POC Test Results from [facility] Rapid COVID antigen (21:29:37) COVID: - Rapid influenza antigen (21:29:38) Flu: - Rapid strep test (21:29:39) Strep: - .................. .................. .................. .................. .................. .................. .................. ............... Ship Captain Note From [facility]: Sent to a call for a pt complaining of URI symptoms. SC8 arrives on scene, pt is alert and oriented, airway is patent. Pt complains of headache, dizziness, bilateral sinus pain, runny nose w/yellow mucus, productive cough w/yellow phlegm, sore throat, and nausea x 9 days, sob w/exertion x 1 wk, loose stool and RLQ abd pain x 2 days. Pt denies cp, vomiting, fever, or loc. Pt states she has asthma, gets xolair injections every two weeks, albuterol neb treatments BID, Albuterol inhaler, and Breztri inhaler. Pt is concerned about a sinus infection and states she needs prednisone for asthma exacerbation. Pt endorses audible wheezing. BP:131/83, P:76, RR:18, SpO2:95% RA, T:97.7; Head: bilateral sinus tenderness; Lung sounds: clear bilaterally; Abdomen: soft, non-tender, no distention; Back: unremarkable; Extremities: unremarkable; Skin: pink, warm, dry; Rapid covid test: neg; Rapid flu test: neg; Rapid strep test: neg; [facility] consulted and orders Duo neb and Prednisone 60mg PO. [facility] sends script to pt's pharmacy. 5 med rights verified; Duo neb administered; Pt reports breathing improved. Prednisone 60mg PO administered. Red flags discussed. Pt has no further questions. [facility] Lab Orders: rapid SARS CoV 2 Ag, QL IA, respiratory specimen: Performed rapid flu (A+B): Performed [facility] Medication Orders: ipratropium 0.5 mg-albuterol 3 mg (2.5 mg base)/3 mL nebulization soln: Performed prednisone 20 mg tablet: Performed .................. .................. .................. .................. .................. .................. .................. ............... [facility] Consulted: Xiomara Anand .................. .................. .................. .................. .................. .................. .................. ............... Disposition: Sandra Anand MD [address] [facility],[address], [place], [phone], Ak?Lex 08/20/2025 22:49:12 OBGyn Episode No OBEpisode recorded.
--- OUTSIDE RECORDS SUMMARY | 2025-10-22 18:29 | XMS_ITS | Clinical Summary ---
Author Organization [facility] Address [address] [facility] [address] [place] [id number] Phone Care Team Providers Care Contract Consultant Name Role Phone Unavailable Primary Care Provider [...] B [place] [employer] PART A & B [facility] Additional Source Comments The information contained in this document represents components of the legal health record. It is not the complete legal health record.[facility]
--- OUTSIDE RECORDS SUMMARY | 2025-10-22 18:30 | XMS_ITS | Data Portability ---
Author Organization [facility], [facility] Address [address] [place] [address] Care Team Providers Care Pegger Name Role Phone HIM CCA OTHER RICHARD WEISS Primary Care Provider Assessment Encounter Date Assessment Date Assessment LastModified by Organization Details LastModified Time 04/05/2025 04/05/2025 I provided real -time medical direction via phone for this encounter and was available for additional phone-based assistance as needed. I have reviewed and agree with the Assessment and Plan as documented by the Sales And Marketing Administrator. Patient given the opportunity to ask questions. [...] any significant trauma from this event. Per comic writer on the scene, vital signs are stable and patient is afebrile. No wheezing heard on exam. COVID and Flu are both negative. No increased work of breathing and no distress. Impression: Asthma Plan: Continue with icer-dhz-jkzzgye medications to control symptoms. continue to use nebulizers. Patient did not appear to need prednisone. We gave a Z-Barrera. The 1st dose of the Z-Barrera was administered in the field by my comic writer colleague. The remainder called into the patient's [...] We discussed the need to seek care urgently/emergen tly in the setting of any new or worsening serious symptoms, particularly fever chills [email or web address] Not available 04/05/2025 20:52:51 05/04/2025 05/04/2025 I provided real -time medical direction via phone for this encounter, and was available for additional phone based assistance as needed. I have reviewed and agree with the Assessment and Plan as documented by the Sales And Marketing Administrator. We discussed the diagnostic uncertainty of home visits and the risk associated with this. In this case the patient and I felt this to be an acceptable and reasonable amount of risk given the benefit of avoiding an ED visit. The patient given the opportunity to ask questions. Advised if develops CP/severe SOB/turning blue/uncontrolle d n/v/d AMS/ syncope/ hi fever unresponsive to APAP/ibuprofen/t o call 911- verbalized understanding of instruction [email or web address] Not available 05/04/2025 16:20:29 06/05/2025 06/05/2025 As noted, we were called to see this patient regarding concerns of a UTI. Evaluation in the field was performed by my comic writer colleague, as noted above, I provided real-time [...] We discussed the need to seek care urgently/emergen tly in the setting of any new or worsening serious symptoms, particularly fever, worsening pain or chest pain [email or web address] Not available 06/05/2025 19:06:41 06/22/2025 06/22/2025 I provided real -time medical direction via phone for this encounter, and was available for additional phone based assistance as needed. I have reviewed and agree with the Assessment and Plan as documented by the Sales And Marketing Administrator. We discussed the diagnostic uncertainty of home visits and the risk associated with this. In this case the patient and I felt this to be an acceptable and reasonable amount of risk given the benefit of avoiding an ED visit. UA is reassuring. VSS. Normal appetite, no signs of dehydration. Patient denies hx of diabetes but has been monitoring glucose levels. She is awaiting A1C results and urine culture from PCP so did not resend culture. Denies any pain or blood in urine. Denies any vaginal symptoms or discharge. Advised she should be seen by DOUBLE REAMER OPERATOR and urology. Patient verbalized understanding. The patient given the opportunity to ask questions. Advised if develops CP/severe SOB/turning blue/uncontrolle d n/v/d or black/bloody emesis or stool/ AMS/ syncope/ hi fever unresponsive to APAP to call 911- verbalized understanding of instruction Not available 06/22/2025 20:57:03 08/20/2025 08/20/2025 Evaluation in the field was performed by my comic writer colleague, as noted above, I provided real-time [...] We discussed the need to seek care urgently/emergen tly in the setting of any new or worsening serious symptoms. [email or web address] Not available 08/20/2025 21:57:14 Plan of Treatment Reminders Order Date Submit Date Provider Last Modified By Organization Details Last Modified Time Details Appointments None recorded. Lab rapid SARS CoV 2 Ag, QL IA, respiratory specimen 2024 025 [facility], [address] [place] [address], [id number] 22:12:43 rapid flu (A+B) [address], [id number] 22:12:43 urinalysis, dipstick [address], [id number] 21:12:07 urinalysis, dipstick [address], [id number] 5 20:21:06 culture, urine 2024 025 [place] [facility] (Centralized Electronic Ordering - All Locations), Patient Can Go To The Location Of Their Choice, [id number] 5 06:05:38 rapid flu (A+B) 2024 025 [email or web address] 0 [facility], [address] [place] [address], [id number] 5 15:13:34 rapid SARS CoV 2 Ag, QL IA, respiratory specimen 2024 025 [email or web address] 0 [facility], [address] [place] [address], [id number] 15:13:34 rapid SARS CoV 2 Ag, QL IA, respiratory specimen 2024 025 [facility], [address] [place] [address], [id number] 5 19:29:19 rapid flu (A+B) 2024 025 [facility], [address] [place] [address], [id number] 19:28:47 Referral None recorded. Procedures None recorded. Surgeries None recorded. Imaging None recorded. Medication Orders prednisone 20 mg tablet 2024 025 [facility], [address] [place] [address], [id number], 21:57:15 ipratropium 0.5 mg-albutero l 3 mg (2.5 mg base)/3 mL nebulizatio n soln 2024 025 [facility]40787, [address], [place], [id number], 21:49:18 prednisone 20 mg tablet 2024 025 [facility], [address], [place], [id number], 21:49:18 amoxicillin 875 mg-potassiu m clavulanate 125 mg tablet 2024 025 [email or web address] 0 [facility]63230, [address], [place], [id number], 15:13:32 amoxicillin 875 mg-potassiu m clavulanate 125 mg tablet 2024 025 [email or web address] 0 [facility]16286, [address], [place], [id number], 15:13:32 benzonatate 200 mg capsule 2024 025 [facility] #38361, [address], [place], [id number], 15:14:53 Zithromax 500 mg tablet 2024 025 [email or web address] [facility]49918, [address], [place], [id number], 19:12:20 Zithromax 250 mg tablet 2024 025 [facility] #15512, [address], [place], [id number], 19:12:26 Patient TargetsNo targets recorded. Patient InstructionsNo instructions recorded. Reason for Referral None Reported. Results Created Date Observation Date Name Description Value Unit Range Abnormal Flag Note LastModifiedBy Organization Detail LastModifiedTime 04/05/2004/05/2025 rapid SARS CoV 2 Ag, QL IA, respi rator y speci men rapid SARS CoV 2 Ag, QL IA, respiratory specimen negati ve Not Available Main - [facility] ed [address] [place] [address], [id number] 04/05/2025 19:11:12 04/05/20 25 04/05/2025 rapid flu (A+B) Flu negati ve Not Available Main - [facility] ed [address] [place] [address], [id number] 04/05/2025 19:11:13 05/04/20 25 05/04/2025 rapid SARS CoV 2 Ag, QL IA, respi rator y speci men rapid SARS CoV 2 Ag, QL IA, respiratory specimen negati ve Not Available Main-[facility], [facility] [address], [address] 05/04/2025 15:10:02 05/04/20 25 05/04/2025 rapid flu (A+B) Flu negati ve Not Available Main-[address], [address] 05/04/2025 15:09:53 06/05/2006/06/2025 URINE CULTU RE, ROUTI NE urine culture, routine Final report Not Available [facility] ([facility]) [address] [place], [address], 06/07/2025 06:05:38 06/05/2006/06/2025 URINE CULTU RE, ROUTI NE result 1 COMMEN T Mixed uroge nital lacy 10,00 0-25, 000 colon y formi ng units per mL Not Available [facility] ([facility]) [address] [facility], [place], [address], 06/07/2025 06:05:38 Result Notes None recorded. Medical Equipment None Reported. Allergies Allergen ID Allergen Name Allergen Category Reaction Reaction Severity Criticality Documentation Date Start Date Code Code System Note Provider Name and Address Organization Details Recorded Time 23160 oxycodone medicatio n Not available Not available Not available 10/12/2024 7804 RxNorm Not Available [facility] - production 4 20:09:51 99867 Sudafed medicatio n Not available Not available Not available 10/12/202483128 2 RxNorm Not Available [facility] - production 4 20:09:51 50927 acetamino phen / dextromet horphan / doxylamin e / pseudoeph edrine medicatio n Not available Not available Not available 01/24/2025 25114 4 RxNorm Not Available [facility] - production 5 12:16:23 76243 Product containin g penicilli n (product) medicatio n Not available Not available Not available 06/05/2025 21969 8001 SNOMED Not Available [facility] - production 5 18:56:43 Medications Name Sig Start Date [...] Available No t Available Vitals Date Recorded Respiratory rate Heart rate Body temperature Oxygen saturation Systolic And Diastolic Provider Name and Address Organization Details Last Updated DateTime 5 16 /min 90 /min 97.3 [degF] 96 % 134/87 mm[Hg] Not Available [facility] - production 5 19:09:59 Date Recorded Heart rate Body temperature Respiratory rate Oxygen saturation Systolic And Diastolic Provider Name and Address Organization Details Last Updated DateTime 5 77 /min 97.7 [degF] 16 /min 95 % 142/85 mm[Hg] Not Available [facility] - production 5 15:05:34 Date Recorded Respiratory rate Heart rate Body temperature Oxygen saturation Systolic And Diastolic Provider Name and Address Organization Details Last Updated DateTime 5 18 /min 91 /min 98.8 [degF] 98 % 138/93 mm[Hg] Not Available [facility] - production 5 18:45:25 Date Recorded Heart rate Body temperature Respiratory rate Oxygen saturation Systolic And Diastolic Provider Name and Address Organization Details Last Updated DateTime 5 68 /min 97.8 [degF] 16 /min 99 % 122/76 mm[Hg] Not Available [facility] - production 5 18:39:32 Date Recorded Oxygen saturation Body height Respiratory rate Heart rate Body temperature Body weight Systolic And Diastolic Provider Name and Address Organization Details Last Updated DateTime 5 95 % 162.56 cm 18 /min 76 /min 97.7 [degF] 77606.7 2 g 131/83 mm[Hg] Not Available [facility] 5 21:38:06 Social History None recorded. Functional Status None recorded. Mental Status None recorded. Family History Nothing Reported. Medical History No medical history recorded. Gynecological HistoryNo gynecological history recorded. Obstetrics History GPAL:G 0 P 0 0 0 0 Past Encounters Encounter ID Performer Location Encounter Start Date Encounter Closed Date Diagnosis/Indication Diagnosis SNOMED-CT Code Diagnosis ICD10 Code Diagnosis IMO Codes Diagnosis Note [id number] Sonia Good MD Main - [facility] [address] [place] [id number] 10/12/2024 21:00:35 10/12/2024 23:38:11 Acute exacerbation of chronic obstructive pulmonary disease 746361262 J44.1 Candidiasis of vagina 72 410264 B37.31 [id number] Brittany Lopez MD Main - [facility] [address] [place] [id number] 12/18/2024 17:21:19 12/22/2024 16:07:56 Exacerbation of intermittent asthma 411367777 J45.21 Congestion of nasal sinus 68217662 R09.81 [id number] Brittany Lopez MD Main - [facility] [address] [place] [id number] 01/24/2025 14:28:21 01/24/2025 19:29:04 Exacerbation of intermittent asthma 879365057 J45.21 [id number] Brittany Lopez MD Main - [facility] [address] [place] [phone] 04/05/2025 19:09:46 04/05/2025 21:59:26 Moderate asthma 560409268 J45.909 [id number] Tona Hogue MD Main-[facility] ED Medical [address] [phone] 05/04/2025 15:05:29 05/04/2025 22:30:15 Recurrent acute pansinusitis 5033141495 3364099 J01.41 [id number] HAS HAD TESSALON w/ good results- no [...] of Augmentin. Patient has an asthma and self pay specialist advised to call him today or tomorrow and also discuss whether she needs to see ENT with her specialist . [place] [id number] DENNIS HANEY MD Main-[facility] ED Medical [address] [id number] 06/05/2025 18:45:21 06/06/2025 21:56:34 Urinary system finding 802313626 R39.9 [id number] Urgent shea alesha to urinate 03490048 R39.15 [id number] CARSON POZO NP, S [facility] ED Medical [address] [phone] 06/22/2025 18:39:29 06/22/2025 21:14:25 Increased frequency of urination 910370112 R35.0 [id number] Xiomara Anand MD [facility] Medical [address] [phone] 08/20/2025 21:38:02 08/21/2025 12:07:54 Upper respiratory infection 14854337 J06.9 [id number] Acute asthma 528304050 J 45.981 7240335 Health Concerns Section Related Observation LastModified by Organization Detai ls LastModified Time None Recorded Concern Status LastModified by Organization Details LastModified Time None Recorded Advance Directives Directive None Recorded Payers Insurance Date Sequence Insurance Name Policy Number Policy Benitez Covered Member ID Benitez Member ID Guarantor Name 08/20/2025 1 [facility] - DOS ON OR AFTER 2023 - DUAL ELIGIBLE - HALF-WAY OPTIONS AND ONE CARE (MEDICARE REPLACEMENT/ADV ANTAGE - HMO) Zoila Giron [id number] Zoila Giron Notes Date Note Type Note Provider Name and Address Organization Details Recorded Time 04/05/2025 text/html HPI: Member phoned in requesting a home visit. Member states she has shortness of breath despite of inhaler use. Member also reports feeling weak and lethargic. Member states she fell shortly after using her inhaler related to dizziness and striked her head with a table. Member denies any visible injury but now has a headache. Member did not lose consciousness with the fall. Member states she believes she may have an upper respiratory infection or bronchitis because she has had these symptoms in the past and was diagnosed with 1 of the 2 mentioned diagnoses. .................... .................... .................... .................... .................... .................... .................... . [facility] Nurse Triage Notes (Iggy Tobar): Reason For Request: Weakness Chief Complaints: Falls, Headache, Breathing Problems PMH: Chronic Obstructive Pulmonary Disease (COPD), Asthma PMH Reviewed at 04/05/2025 Allergies Reviewed at 04/05/2025 Comments: Reviewed HPI Sales And Marketing Administrator Organization Information for [employer] Business Legal Name: [facility] Address: [address] [place] [address], [place] [address], Interceptor Operator: David ENNIS No.: [id number] Sales And Marketing Administrator POC Test Results from [employer] Rapid COVID antigen (19:06:14) COVID: - Rapid influenza antigen (19:06:14) Flu: - .................... .................... .................... .................... .................... .................... .................... . Sales And Marketing Administrator Note From RichardtarikAngel olson: This 54-year-old female with a history including but not limited to asthma requested a visit today to address one week of cough producing yellow sputum and mild CHEEK since this afternoon. Patient also reports that immediately after finishing nebulized albuterol treatment she stood up, became dizzy, lost her balance and hit her head on the dining room table. Patient did not lose consciousness but reports a mild headache. Patient currently denies any chest pain, shortness of breath at rest, severe headache, vision changes, fevers, nausea, vomiting, diarrhea. Patient presents awake and alert, in no acute distress and speaking full sentences. Her vital signs are reasonably stable and she is afebrile. Nonfocal neurological exam. Normal gait. No evidence of trauma, hematomas, open wounds or bruising to her head. Lungs are clear throughout auscultation. Abdomen is soft, nontender, nondistended. No lower extremity edema. Rapid COVID and blue testing are both negative. I treated with azithromycin 500 mg. We discussed the diagnostic uncertainty of home visits and the risk associated with this. In this case, the patient and I felt this to be an acceptable and reasonable amount of risk given the benefit of avoiding an ED visit. I provided education on the patient's prescription as well as anticipated side effects of albuterol, including dizziness. I recommend when she finishes for albuterol treatments she stay seated for 10 minutes and slowly stand up to avoid falling. I also recommend she follow up with her PCP and stay well hydrated. Instructed her to present to the emergency department for any new or worsening severe symptoms such as chest pain, severe shortness of breath, high fever, altered mental status. The patient was given the opportunity to ask questions and is agreeable to this plan. [facility] Lab Orders: rapid SARS CoV 2 Ag, QL IA, respiratory specimen: Performed rapid flu (A+B): Performed [facility] Medication Orders: Zithromax 500 mg tablet: Administered .................... .................... .................... .................... .................... .................... .................... . [facility] Consulted: Brittany Lopez .................... .................... .................... .................... .................... .................... .................... . Disposition: Sandra Brittany Lopez MD [address] [facility],[address], [place], [address], [facility] - [facility] 04/05/2025 20:53:01 05/04/2025 text/html ROS as noted in the HPI HPI: Tiffanie is a 55 yo female with hx of but not all inclusive of severe persistent asthma. Allergies to Sudafed, Oxycodone, and Nyquil. Mbr states she uses her rescue inhaler and nebulizer to manage asthma. Per Mbr asthma at baseline. Mbr calling in with two-week hx of sinus congestion and headache. Mbr stated that she is unsure if she has a fever. Mbr denies chest pain, vomiting or diarrhea. Mbr states she is a little nauseous due to the sinus drippings in the back of her throat. Mbr reported she could not get into see her Provider. Mbr reported that she fell and hit her head prior to this CRU call. Mbr reports back of head hurts where she hit her head on her rug but does not want to go to ER and would like an INSTED HV for evaluation. 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 This CRU RN instructed Mbr to call 911 and got to ER if she develops worsening s/s and s/s concussion and mbr agrees. This CRU RN placed INSTED HV in on Mbr's behalf. Alerted CC via GC activity. Confirmed address and phone/[phone]. .................... .................... .................... .................... .................... .................... .................... . [facility] Nurse Triage Notes (Leatha Melton): Reason For Request: cough Chief Complaints: Cough, Headache, Weakness PMH: Chronic Obstructive Pulmonary Disease (COPD), Asthma PMH Reviewed at 05/04/2025:16 Allergies Reviewed at 05/04/2025:16 Comments: HPI reviewed Sales And Marketing Administrator Organization Information for [employer] Legal Name: [facility] Address: [address] [place] [address], [place] [address], Interceptor Operator: David ENNIS No.: [id number] Sales And Marketing Administrator POC Test Results from RichardtarikAngel olson Rapid COVID antigen (15:04:19) COVID: - Rapid influenza antigen (15:04:20) Flu: - .................... .................... .................... .................... .................... .................... .................... . Sales And Marketing Administrator Note From Harika Angel: This 55-year-old female with a history of asthma requested a visit today to address two weeks of sinus congestion/pain, cough producing yellow sputum and right here pain/pressure. Patient states she frequently gets sinus infections requiring antibiotics, was most recently treated with azithromycin four weeks ago. Patient is using her nebulizer treatments as prescribed, loratadine, inhalers, Jaky pot and fluticasone. Patient denies any chest pain, shortness of breath, dyspnea on exertion, fevers, nausea, vomiting, diarrhea. Patient presents awake and alert, in no acute distress and speaking full sentences. Her vital signs are reasonably stable and she is afebrile. Nonfocal neurological exam. Normal gait. Diffuse sinus tenderness bilaterally. Normal left in her ear exam with visualization of the TM, unable to visualize TM and right ear due to wax buildup. [...] the importance of follow-up with her PCP air chipper. I recommend she request a referral for an ENT and present to the emergency department for any new or worsening severe symptoms such as chest pain, severe shortness of breath, high fever, altered mental status. The patient interfamily were given the opportunity to ask questions and are agreeable to this plan. [facility] Lab Orders: rapid flu (A+B): Performed rapid SARS CoV 2 Ag, QL IA, respiratory specimen: Performed [facility] Medication Orders: amoxicillin 875 mg-potassium clavulanate 125 mg tablet: Administered .................... .................... .................... .................... .................... .................... .................... . [facility] Consulted: Tona Hogue .................... .................... .................... .................... .................... .................... .................... . Disposition: FulfilledSEGMD: As above. Patient seen 04/05 and was given a Z-Barrera which helped but then symptoms returned a week to 10 days later. She is already on Flonase and loratadine daily and has been using a [place] pot and taking appropriate doses of APAP /ibuprofen. Denies history of CKD. Allergies reviewed. She complains of right ear pressure /eating and drinking normally Tona Hogue MD [address] [facility],[address], [place], [address], [employer] 05/04/2025 16:20:37 06/05/2025 text/html ROS as noted in the HPI HPI: Member calling in with c/o urinary frequency and urgency. Denies fevers, denies back or abd pain. Does endorse having some right flank pain at times. Denies any pain or burning with urination. Member asking to be evaluated for UTI as her symptoms are similar to being diagnosed with UTI in the past. .................... .................... .................... .................... .................... .................... .................... . [facility] Nurse Triage Notes (Leatha Melton): Reason For Request: UTI Chief Complaints: Urinary Symptoms PMH: Chronic Obstructive Pulmonary Disease (COPD), Asthma PMH Reviewed at 06/05/2025 - 18:15 Allergies Reviewed at 06/05/2025 - 18:15 Comments: HPI reviewed Sales And Marketing Administrator Organization Information for Phan Khalil Legal Name: [facility] Address: [address] [place] [address], [place] [address], Interceptor Operator: David ENNIS No.: [id number] Sales And Marketing Administrator POC Test Results from Phan Khalil Urine Dipstick (18:37:00) Urine leukocytes: - TUCKER Urine nitrites: - NIT Urine urobilinogen: 0.2 URO Urine protein: 15 PRO Urine pH: 5.0 pH Urine blood: - BLO Urine specific gravity: 1.020 SG Urine ketones: - KET Urine bilirubin: - CLARIBEL Urine glucose: - GLU Attachments uploaded as part of this test result can be found under Documents section. .................... .................... .................... .................... .................... .................... .................... . Sales And Marketing Administrator Note From Phan Khalil: Arrived to find female in her apt. Patient aox4. GCS 15 smin pink warm and dry patient endorses increased urination on and off for the past month. No discharge. No burning. No cva tenderness. No fevers. VS as noted. UA dip stick unremarkable with exception of little bit of proteins. culture obtained. [facility] contacted advised to send out culture and wait for its findings. No red flag symptoms. Patient understanding. [facility] Lab Orders: urinalysis, dipstick: Performed culture, urine: Performed .................... .................... .................... .................... .................... .................... .................... . [facility] Consulted: Dennis Haney .................... .................... .................... .................... .................... .................... .................... . Disposition: Fulfilled DENNIS HANEY MD [address] [place] [address],[address], [place], [address], [facility] 06/05/2025 19:55:02 06/22/2025 text/html ROS as noted in the HPI CRC Nurse Triage Notes (Angelica Jc): Reason For Request: frequent urination, some incontinence, minor intermittent Patient Reports: Frequent and increased urination with flank pain; Painful urination with or without fever; Inability to fully empty bladder Denies: Unable to void greater than 5 hours Erection that will not go away after 2 hours Fall or trauma that results in urinary incontinence in the setting of pain Fall or injury that results in incontinence in the absence of pain Lower back pain either unilateral or bilateral, unable to void, painful urination -hematuria Painful urination Chief Complaints: Urinary Symptoms PMH: Chronic Obstructive Pulmonary Disease (COPD), Asthma, Anxiety Disorder, Depression PMH Reviewed at 06/22/2025 - 16:03 Allergies Reviewed at 06/22/2025 - 16:03 Comments: 55 y.o female complains of Urinary Symptoms 3 weeks ago - negative for UTI Incontinence Frequency - every 20 mins Output sometimes a lot and sometimes a little Pelvic/lower abdominal pain - comes and goes Doesn't hurt when she urinated Denies fever, reports shakiness Reports urine is yellow and not malodorous that she knows of Reports that protein found in her urine last time Feels as if she is unable to fully empty her bladder Denies lower back pain Moving bowels adequately I provided information on the mobile health provider response time and advised the patient and/or caregiver to monitor reported signs and symptoms. I discussed the warning signs of when to seek emergency care. Sales And Marketing Administrator Organization Information for Meet Mcdaniel [employer] Legal Name: [employer]. Address: [address] [place] [address], Interceptor Operator: Jeremy Sweeney MD [facility] No.: [id number] Sales And Marketing Administrator POC Test Results from Meet [facility]iel Urine Dipstick (18:33:24) Urine leukocytes: -TUCKER Urine nitrites: -NIT Urine urobilinogen: -URO Urine protein: -PRO Urine pH: 6pH Urine blood: -BLO Urine specific gravity: 1.000SG Urine ketones: +KET Urine bilirubin: -CLARIBEL Urine glucose: -GLU .................... .................... .................... .................... .................... .................... .................... . Sales And Marketing Administrator Note From [facility]: Dispatched to the call address for the female with UTI symptoms. Pt advises that for nearly a month now she has had urgency and frequency. She had her urine tested by [facility] a couple of weeks ago and it was negative and she was seen by [...] abd soft non tender/distended, lungs CTA, +CMSx4, -edema/swelling, afebrile, -CVA tenderness. Pt was assessed. UA (-). [facility] consulted. Pt was advised to follow up with her PCP and request referral to specialist. She was also advised she could call her OBGYN and they may be able to assist. Pt has appt with GI doctor tomorrow where she will be able to ask for her results of last weeks tests. Red flags discussed. ALL times are approx. .................... .................... .................... .................... .................... .................... .................... . [facility] Consulted: Carson Pozo .................... .................... .................... .................... .................... .................... .................... . Disposition: Sandra POZO NP, [address] [facility],[address], [place], [address], SHERRI ARMSTRONG 06/22/2025 20:57:40 08/20/2025 text/html ROS as noted in the [...] worsening s/sx. CP is Violet Arango, email: [email or web address]. .................... .................... .................... .................... .................... .................... .................... . [facility] Nurse Triage Notes (Tri Chance): Chief Complaints: Cough, Sore Throat PMH: Chronic Obstructive Pulmonary Disease (COPD), Asthma, Anxiety Disorder, Depression PMH Reviewed at 08/20/2025 - :26 Allergies Reviewed at 08/20/2025:26 Comments: [facility] reviewed Sales And Marketing Administrator Organization Information for Ephraim Soniawhitney ASHLEY [employer] Legal Name: [employer]. Address: [address] [place] [address], Interceptor Operator: Jeremy Sweeney MD CLIA No.: [id number] Sales And Marketing Administrator POC Test Results from Ephraim Sonia - ALS Rapid COVID antigen (21:29:37) COVID: - Rapid influenza antigen (21:29:38) Flu: - Rapid strep test (21:29:39) Strep: - .................... .................... .................... .................... .................... .................... .................... . Sales And Marketing Administrator Note From Ye Sonia: Sent to a call for a pt [...] flu test: neg; Rapid strep test: neg; [facility] consulted and orders Duo neb and Prednisone 60mg PO. [facility] sends script to pt's pharmacy. 5 med rights verified; Duo neb administered; Pt reports breathing improved. Prednisone 60mg PO administered. Red flags discussed. Pt has no further questions. [facility] Lab Orders: rapid SARS CoV 2 Ag, QL IA, respiratory specimen: Performed rapid flu (A+B): Performed [facility] Medication Orders: ipratropium 0.5 mg-albuterol 3 mg (2.5 mg base)/3 mL nebulization soln: Performed prednisone 20 mg tablet: Performed .................... .................... .................... .................... .................... .................... .................... . [facility] Consulted: Xiomara Anand .................... .................... .................... .................... .................... .................... .................... . Disposition: Fulfilled Xiomara Anand MD [address] [facility],[address] [facility], [place], [address], [place] 08/20/2025 22:49:12 OBGyn Episode No OBEpisode recorded.
--- OUTSIDE RECORDS SUMMARY | 2025-10-22 18:30 | XMS_ITS | Clinical Summary ---
Author Organization [facility] Address [address] [place] [address] Care Team Providers Care Country Printer Name Role Phone April Vizcaino MD Primary Care Provider [phone] Social History Tobacco Use Types Packs/Day Years Used Date Smoking Tobacco: Never Assessed Comments Unknown Sex and Gender Information Value Date Recorded Sex Assigned at Not on file Legal Sex Female 11:19 PM EST Gender Identity Not on file Sexual Orientation Not on file Plan of Treatment Health Maintenance Due Date Last Done Comments Colorectal Cancer Screening: Colonoscopy 1972 Hepatitis B Vaccines (1 of 3 - 19+ 3-dose series) 1991 Breast Cancer Screening 05/20/2020 05/20/2018 Cervical Cancer Screening: P ap Smear 06/12/2021 06/12/2018 Pneumococcal Vaccine: 50+ Ye ars (1 of 1 - PCV) 2022 Zoster Vaccines (1 of 2) 2022 HIV Screening 10/30/2022 Hepatitis C Screening 10/30/2022 Social Influencers of Health Screening 10/30/2022 DTaP,Tdap,and Td Vaccines (2 - Td or Tdap) 09/17/2024 09/17/2014 Depression Screening 11/18/2024 COVID-19 Vaccine (1 - 2024-2 6 season) 2025 Influenza Vaccine (#1) 2025 09/17/2014 RSV Immunization Adult Patie nts (1 - 1-dose 75+ series) 2047 HIB Vaccines Aged Out No longer eligi [...] RESULTING AGENCY - 06/18/2018 9:05 AM EDT [id number] THINPREP PAP, IMAGED: ATYPICAL SQUAMOUS CELLS OF [...] Recently Relevant to Health Maintenance Care Teams Country Printer Relationship Specialty Start Date End Date April Vizcaino MD [address] [place] [address] [address] [facility] [place] [address] PCP - General Internal Medicine 11/27/16
== END 2025-10-22 15:36 | disposition home or self-care (01) ==
LOC: HO.HMCH 14:21
PROVIDERS: PCP Internal Medicine
DX: M25.512 Pain in left shoulder (principal); R29.6 Repeated falls

== ENCOUNTER → 2025-10-22 14:20 | Outpatient (BNVA) | payer OTHER, SELFPAY | PROVIDERS: PCP Internal Medicine | DX: R29.6 Repeated falls (principal); M25.512 Pain in left shoulder | CPT/HCPCS: 99212 ==

== ENCOUNTER 2025-10-26 11:09 | Outpatient (REF) | payer OTHER, SELFPAY ==
--- NOTE | ~2025-10-26 | US_ITS ---
CLINICAL HISTORY: R39.15 - Urgency of urination US retroperitoneum with color Doppler Comparison: CT/SR - CT ABDOMEN PELVIS WITH IV CONTRAST - 08/09/23 02:50 EDT Findings: Right kidney normal size and echotexture, 10.9 cm length. No hydronephrosis. Normal color flow. No nephrolithiasis. No renal masses. Left kidney normal size and echotexture, 11.4 cm in length. No hydronephrosis. Normal color flow. No nephrolithiasis. No renal masses. Urinary bladder is unremarkable. Prevoid volume 288.2 mL. Postvoid volume 33.1 mL. Ureteral jets are visualized bilaterally Impression: 1. Normal kidneys. Slightly elevated postvoid residual. This document has been electronically signed by: Karsten Galvez MD on 10/28/2025 10:04:41
== END 2025-10-26 11:10 | disposition home or self-care (01) ==
LOC: HO.US 11:09
PROVIDERS: PCP Internal Medicine; Visit Provider Nurse Practitioner Family
DX: R39.15 Urgency of urination (principal); R35.0 Frequency of micturition
CPT/HCPCS: 76770

== ENCOUNTER → 2025-10-26 11:14 | Outpatient (BNV) | payer OTHER, SELFPAY | PROVIDERS: PCP Internal Medicine; Visit Provider Radiology Diagnostic Radiology | DX: R39.15 Urgency of urination (principal) | CPT/HCPCS: 76770 ==

== ENCOUNTER 2025-11-09 08:43 | Outpatient (AMB) | payer OTHER, SELFPAY ==
--- OUTSIDE RECORDS SUMMARY | 2025-11-09 09:00 | XMS_ITS | Encounter Summary ---
Author Organization [facility] Address [address] [place] [address] Encounters * CPT with [facility] at [employer] on 2025-08-21 55 y.o. F c/o feeling ill x 9 days, noting grandson was sick w/ COVID ~3 wks ago. She c/o sore throat, productive cough w/ yellow sputum, body aches, nausea, diarrhea, L ear pain and tenderness underher eyes. No vomiting. Stools do not appear black or bloody. She has been hydrating w/ water and gatorade. Mbr states she has severe asthma, gets xolair injections q 2 wks. Resps unlabored w/ speech.No audible wheezing or stridor during call. She [...] worsening s/sx. CP is Violet Arango, email: [email or web address]. { reasonForRequest : , patientReports : , denies&quot ;:[], chiefComplaints : Cough, Sore Throat , pmh : Chronic Obstructive Pulmonary Disease (COPD), Asthma, Anxiety Disorder, Depression , allergies :&qu ot;Oxycodone, Sudafed, Nyquil, Penicillins , otherAllergies :null, painAssessmen t : , visitOutcome : , additionalComments : HPIreviewed } Sent to a call for a pt [...] fever, or loc. Pt states she has asthma,gets xolair injections every two weeks, albuterol neb [...] flu test: neg; Rapid strep test: neg; [facility] consulted and orders Duo neb and Prednisone 60mg PO. [facility] sends script to pt's pharmacy. 5 med rights verified; Duo neb administered; Pt reports breathing improved. Prednisone 60mg PO administered. Red flags discussed. Pt has no further questions. ORAL_MEDICATION, EKG, POC_FLU_STREP, COVID_TEST Written by Medical [facility] on 2025-08-21
--- OUTSIDE RECORDS SUMMARY | 2025-11-09 09:00 | XMS_ITS | Clinical Summary ---
Author Organization [facility] Address [address] [place] [address] Care Team Providers Care Order Analyst Name Role Phone April Vizcaino MD Primary Care Provider [phone] Social History Tobacco Use Types Packs/Day Years [...] RESULTING AGENCY - 06/18/2018 9:05 AM EDT [id number] THINPREP PAP, IMAGED: ATYPICAL SQUAMOUS CELLS OF [...] Recently Relevant to Health Maintenance Care Teams Order Analyst Relationship Specialty Start Date End Date April Vizcaino MD [address] [place] [address] [address] [facility] In [place] [address] PCP - General Internal Medicine 11/27/16
--- OUTSIDE RECORDS SUMMARY | 2025-11-09 09:00 | XMS_ITS | Continuity of Care Document ---
Author Name [facility] Address [address] [place] [address] Organization Unknown Address [address] [place] [address] Medications No known medications Problems No known problems
--- OUTSIDE RECORDS SUMMARY | 2025-11-09 09:00 | XMS_ITS | Clinical Summary ---
Author Organization [facility] Address [address] [place] [address] Phone Care Team Providers Care Manager Welding Name Role Phone Unavailable Primary Care Provider [...] B [place] PART A & B [facility] Additional Source Comments The information contained in this document represents components of the legal health record. It is not the complete legal health record.[facility]
--- OUTSIDE RECORDS SUMMARY | 2025-11-09 09:00 | XMS_ITS | Patient Health Record ---
Author Organization [facility] Address [address] [place] [address] Care Team Providers Care Personal Lines Agent Name Role Phone Po April SHEEHAN Primary Care Provider Clemente Hope Jr Unavailable [phone] Allergies Allergen (clinical drug ingredient) Drug/Non Drug Allergy documented on EMR Reaction Allergy Type Onset Date Status penicillamine Penicillamine Unknown Drug Allergy Active Sudafed Unknown Drug Allergy Active Reason For Referral No Information Medications Medication SIG (Take, Route, Frequency, Duration) Notes Start Date End Date Status clonazePAM 1mg 1 po qhs Activ e Lexapro 20mg 1 po qam Active Claritin 1 po qd Active Lunesta 3mg 1 po qhs Active Zofran 4 MG Tablet 1 Orally t.i.d. 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 [place] Problems Problem Type SNOMED Code ICD Code Onset Dates Problem Status W/U Status Risk Notes Problem Nausea (199330463) Nausea (787.02) Active confirmed Problem Epigastric pain (99550020) Epigastric pain (789.06) Active confirmed Plan Of Treatment Future Test Test Name Order Date UPPER GI ENDOSCOPY 07/17/2013 Insurance Providers Payer Name Payer Address Payer Phone Subscriber Number Group Number Insured Name Patient Relationship to Insured Coverage Start Date Coverage End Date MEDICARE OF [place] [address] [place] [id number] CLAUDIA MOONEY Self - patient is the insured MEDICAID OF [facility] [address] [place] [phone] [id number] CLAUDIA MOONEY Self - patient is the insured Medical (General) History Medical History History ICD Code egd abd pain epigastric pain benign heart murmur-for which no antibio tic prophylaxis are taken. anxiety attacks allergies
[2025-11-09 09:10] VITALS: BP 130/90; PULSE 73; O2SAT 95; BMI 29.4
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
== END 2025-11-09 10:10 | disposition home or self-care (01) ==
LOC: HO.HMCH 08:44
PROVIDERS: PCP Internal Medicine; Visit Provider Internal Medicine
DX: J44.89 Other specified chronic obstructive pulmonary disease (principal); F41.1 Generalized anxiety disorder; I70.0 Atherosclerosis of aorta; E78.00 Pure hypercholesterolemia, unspecified; K21.9 Gastro-esophageal reflux disease without esophagitis; Z12.31 Encounter for screening mammogram for malignant neoplasm of breast; M25.512 Pain in left shoulder; M25.369 Other instability, unspecified knee

== ENCOUNTER → 2025-11-09 08:43 | Outpatient (BNVA) | payer OTHER, SELFPAY | PROVIDERS: PCP Internal Medicine; Visit Provider Internal Medicine | DX: M25.369 Other instability, unspecified knee (principal); R29.6 Repeated falls; M25.512 Pain in left shoulder; J44.89 Other specified chronic obstructive pulmonary disease; F41.1 Generalized anxiety disorder; I70.0 Atherosclerosis of aorta; E78.00 Pure hypercholesterolemia, unspecified; K21.9 Gastro-esophageal reflux disease without esophagitis; J01.90 Acute sinusitis, unspecified; Z12.31 Encounter for screening mammogram for malignant neoplasm of breast; Z13.31 Encounter for screening for depression; Z13.39 Encounter for screening examination for other mental health and behavioral disorders | CPT/HCPCS: 96127; 99212 ==